=== PATIENT | female | born 1955 | race Caucasian/White ===

== ENCOUNTER → 2017-12-21 09:54 | Outpatient (CLI) | payer BC, MEDICARE, SELFPAY ==
--- NOTE | 2017-12-21 14:38 | PFTCOMP ---
COMPLETE PULMONARY FUNCTION TEST INTERPRETATION Brief HPI: Patient is a 62 year old female, currently under the care of myself, who presents to [facility] for complete pulmonary function tests secondary to diagnosis of pulmonary hypertension. Respiratory therapist reports good effort and reproducible results. Interpretation: Forced expiration spirometry shows no large airways obstructive ventilatory defect with an FEV1 of 76 % predicted. There is no significant bronchodilator response by ATS criteria. Spirograms are of good quality and plateau normally. The respiratory flow volume loop shows a normal pattern. Lung volumes by body plethysmography show a decreased total lung capacity at 3.79 L, 78 % predicted. All other lung volumes are reduced symmetrically. Diffusion capacity by carbon monoxide is decreased at 53 % predicted. The airway resistance is normal. Compared to previous pulmonary function tests from 03/16/2017, there has been a significant change in FVC and DLCO. Impression: Mild restrictive ventilatory defect with a symmetric reduction diffusing capacity consistent with possible interstitial lung disease. There has been significant improvement compared to previous study.
== END ==
PROVIDERS: Family Provider Internal Medicine; PCP Internal Medicine; Visit Provider Internal Medicine Critical Care Medicine
DX: R94.2 Abnormal results of pulmonary function studies (principal)
CPT/HCPCS: 94060; 94726; 94729

== ENCOUNTER → 2018-02-17 08:20 | Outpatient (CLI) | payer BC, MEDICARE, SELFPAY ==
[2018-02-17 08:30] VITALS: PULSE 101; PULSE 105; PULSE 62; PULSE 66; PULSE 68; PULSE 99; O2SAT 90; O2SAT 91; O2SAT 92; O2SAT 95; O2SAT 96
--- NOTE | 2018-02-17 10:40 | PCM.PSN.6M ---
PSN 6 Minute Walk Test - 6 Minute Walk Test 6 Minute Walk Test: 6 Minute Walk Test PSN:6-Minute Walk Test Start: 02/17/18 08:49 Freq: Status: Active Protocol: RESP.6MINW Document 02/17/18 08:30 EW (Rec: 02/17/18 08:52 EW [id number]) 6 Minute Walk Test Date Performed 02/17/18 Time Performed 08:30 Height 5 ft 4 in Weight: 86.636 kg Weight in Pounds 191.[address]: Yuni Banks Assistive device used: None Pre-test Oxygen Delivery Method Room Air Pulse Ox (%) 95 Pulse Rate (60-100 beats/min) 62 Dyspnea Leigha Scale (0-10) 0 Exertion Leigha Scale (6-20) 6 1st minute Oxygen Delivery Method Room Air Pulse Ox (%) 91 Pulse Rate (60-100 beats/min) 68 2nd minute Oxygen Delivery Method Room Air Pulse Ox (%) 90 Pulse Rate (60-100 beats/min) 99 3rd minute Oxygen Delivery Method Room Air Pulse Ox (%) 91 Pulse Rate (60-100 beats/min) 105 H 4th minute Oxygen Delivery Method Room Air Pulse Ox (%) 91 Pulse Rate (60-100 beats/min) 99 5th minute Oxygen Delivery Method Room Air Pulse Ox (%) 92 Pulse Rate (60-100 beats/min) 105 H 6th minute Oxygen Delivery Method Room Air Pulse Ox (%) 91 Pulse Rate (60-100 beats/min) 101 H Post-test Oxygen Delivery Method Room Air Pulse Ox (%) 96 Pulse Rate (60-100 beats/min) 66 Dyspnea Leigha Scale (0-10) 3 Exertion Leigha Scale (6-20) 13 Full Laps Walked 12 Partial Lap, Number of Tiles Walked 0 Total Distance Walked (ft) 708 - Interpretation Interpretation: The patient was able to ambulate only 780 feet over the course of 6 minutes on room air with no assistive devices or breaks. The patient did experience significant desaturation from 95% at baseline to as low as 90%. Some reflexive tachycardia was noted. These findings are consistent with a respiratory limitation exercise tolerance. - Recommendations Recommendations: No supplemental oxygen is indicated at this time. However, patient will need to be followed closely given level of desaturation.
--- NOTE | 2018-02-17 10:43 | WT_ITS ---
PSN 6 Minute Walk Test - 6 Minute Walk Test 6 Minute Walk Test: 6 Minute Walk Test PSN:6-Minute Walk Test Start: 02/17/18 08: 49 Freq: Status: Active Protocol: RESP.6MINW Document 02/17/18 08:30 EW (Rec: 02/17/18 08:52 EW [id number]) 6 Minute Walk Test Date Performed 02/17/18 Time Performed 08:30 Height 5 ft 4 in Weight: 86.636 kg Weight in Pounds 191.[address]: Yuni Banks Assistive device used: None Pre-test Oxygen Delivery Method Room Air Pulse Ox (%) 95 Pulse Rate (60-100 beats/min) 62 Dyspnea Leigha Scale (0-10) 0 Exertion Leigha Scale (6-20) 6 1st minute Oxygen Delivery Method Room Air Pulse Ox (%) 91 Pulse Rate (60-100 beats/min) 68 2nd minute Oxygen Delivery Method Room Air Pulse Ox (%) 90 Pulse Rate (60-100 beats/min) 99 3rd minute Oxygen Delivery Method Room Air Pulse Ox (%) 91 Pulse Rate (60-100 beats/min) 105 H 4th minute Oxygen Delivery Method Room Air Pulse Ox (%) 91 Pulse Rate (60-100 beats/min) 99 5th minute Oxygen Delivery Method Room Air Pulse Ox (%) 92 Pulse Rate (60-100 beats/min) 105 H 6th minute Oxygen Delivery Method Room Air Pulse Ox (%) 91 Pulse Rate (60-100 beats/min) 101 H Post-test Oxygen Delivery Method Room Air Pulse Ox (%) 96 Pulse Rate (60-100 beats/min) 66 Dyspnea Leigha Scale (0-10) 3 Exertion Leigha Scale (6-20) 13 Full Laps Walked 12 Partial Lap, Number of Tiles Walked 0 Total Distance Walked (ft) 708 - Interpretation Interpretation: The patient was able to ambulate only 780 feet over the course of 6 minutes on room air with no assistive devices or breaks. The patient did experience significant desaturation from 95% at baseline to as low as 90%. Some reflexive tachycardia was noted. These findings are consistent with a respiratory limitation exercise tolerance. - Recommendations Recommendations: No supplemental oxygen is indicated at this time. However, patient will need to be followed closely given level of desaturation.
== END ==
PROVIDERS: Family Provider Internal Medicine; PCP Internal Medicine; Visit Provider Nurse Practitioner Acute Care
DX: I27.21 Secondary pulmonary arterial hypertension (principal)
CPT/HCPCS: 94618

== ENCOUNTER → 2018-04-21 08:19 | Outpatient (CLI) | payer BC, MEDICARE, SELFPAY ==
[2018-04-21 10:29] LABS: AST(SGOT) 13 U/L (15-37); Alanine Aminotransfer ALT/SGPT 14 U/L (13-56); Albumin, Serum 3.6 g/dL (3.2-5.0); Alkaline Phosphatase 89 U/L (45-117); Bilirubin, Direct 0.12 mg/dL (0.00-0.30); Cholesterol 188 mg/dL (200); Globulin 3.4 g/dL (2.2-4.2); High Density Lipoprotein 68 mg/dL; Triglycerides 46 mg/dL; Very Low Density Lipoprotein 9 mg/dL (5-40)
== END ==
PROVIDERS: Family Provider Internal Medicine; PCP Internal Medicine; Visit Provider Physician Assistant Medical
DX: E78.5 Hyperlipidemia, unspecified (principal); Z79.899 Other long term (current) drug therapy
CPT/HCPCS: 36415; 80061; 80076

== ENCOUNTER → 2018-04-27 10:58 | Outpatient (REF) | payer BC, MEDICARE, SELFPAY | LOC: CVS 10:58 | PROVIDERS: Family Provider Internal Medicine; PCP Internal Medicine; Visit Provider Internal Medicine Cardiovascular Disease | DX: R00.2 Palpitations (principal); I48.1 Persistent atrial fibrillation | CPT/HCPCS: 93270 ==

== ENCOUNTER → 2018-08-16 12:58 | Outpatient (CLI) | payer BC, MEDICARE, SELFPAY ==
[2018-07-12 09:11] VITALS: BMI 34.8
--- NOTE | 2018-08-16 13:05 | RAD_ITS ---
STUDY: X-RAY - LUMBAR SPINE REASON FOR EXAM: Female, 63 years old. Low back pain TECHNIQUE: 5 view(s) of the lumbar spine were obtained. COMPARISON: None FINDINGS: There is an exaggerated lumbar lordosis. There is no substantial scoliosis. There is a normal alignment of the vertebrae. There is multilevel endplate spondylosis of the lumbar vertebrae. There is multi-level degenerative disc disease with multi-level disc space narrowing. The soft tissue structures are unremarkable. RAD/L/S Spine Min 4 Views IMPRESSION: Degenerative changes of the spine, as detailed above. Electronically Signed: Inderjit Choudhary DO at 11:41 EST Tel , Service support ,
--- NOTE | 2018-08-16 13:07 | RAD_ITS ---
STUDY: X-RAY - BILATERAL HIPS WITHOUT PELVIS REASON FOR EXAM: Female, 63 years old. Bilateral hip pain TECHNIQUE: 2 views of the right hip, and 2 views of the left hip were obtained. COMPARISON: None. FINDINGS: Right Hip: There are osteoarthritic changes of the right femoral head with marginal osteophyte formation. Normal right acetabulum. There is mild articular joint space narrowing of the right hip. There is no demonstrated right hip fracture. Left Hip: There are osteoarthritic changes of the left femoral head with marginal osteophyte formation. Normal left acetabulum. There is mild articular joint space narrowing of the left hip. There is no demonstrated left hip fracture. Normal bilateral superior and inferior pubic rami , ischial tuberosities and pubic symphysis. Small bone island within the inferior pubic ramus RAD/Hips B/L min 2 views w/ Pelvis IMPRESSION: Mild degenerative change of the hips Electronically Signed: Inderjit Choudhary DO at 13:17 EST Tel , Service support ,
--- NOTE | 2018-08-16 13:08 | RAD_ITS ---
STUDY: X-RAY - RIGHT HAND REASON FOR EXAM: Female, 63 years old. Hand pain TECHNIQUE: 3 view(s) of the hand. COMPARISON: None. FINDINGS: Normal radiocarpal articulation. Normal distal radioulnar joint. Normal visualized carpal bones. Normal carpal articulations Normal carpometacarpal articulation of the thumb. Normal second through fifth carpometacarpal joints. Normal metacarpi. Normal metacarpophalangeal joint of the thumb. 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 Normal proximal and distal phalanges of the thumb. Normal metacarpophalangeal joints of the second through fifth fingers. There is diffuse articular joint space narrowing of the proximal and distal interphalangeal joints of the second through fifth fingers, but without erosive changes or periarticular soft tissue swelling. Normal phalanges of the second through fifth fingers. The soft tissue structures are unremarkable. RAD/Hand Min 3 Views IMPRESSION: Mild degenerative change Electronically Signed: Inderjit Choudhary DO at 13:19 EST Tel , Service support ,
--- NOTE | 2018-08-16 13:09 | RAD_ITS ---
STUDY: X-RAY - RIGHT SHOULDER REASON FOR EXAM: Female, 63 years old. Shoulder pain TECHNIQUE: 4 view(s) of the shoulder. COMPARISON: None. FINDINGS: There is moderate degenerative arthrosis of the glenohumeral articulation. There is degenerative arthrosis of the acromioclavicular joint without inferior osseous spur formation. Normal acromion. Normal humeral head and visualized proximal humerus. The soft tissue structures are unremarkable. There is no demonstrated fracture. Normal visualized pulmonary apex. RAD/Shoulder min 2 Views IMPRESSION: Degenerative changes Electronically Signed: Inderjit Choudhary DO at 13:19 EST Tel , Service support ,
--- NOTE | 2018-08-16 13:09 | RAD_ITS ---
STUDY: X-RAY - LEFT HAND REASON FOR EXAM: Female, 63 years old. Pain with arthralgia TECHNIQUE: 3 view(s) of the hand. COMPARISON: None. FINDINGS: Normal radiocarpal articulation. Normal distal radioulnar joint. Normal visualized carpal bones. Normal carpal articulations There is degenerative arthrosis of the carpometacarpal (CMC) articulation of the thumb. Normal second through fifth carpometacarpal joints. Normal metacarpi. Normal metacarpophalangeal joint of the thumb. Normal interphalangeal joint of the thumb. Normal proximal and distal phalanges of the thumb. Normal metacarpophalangeal joints of the second through fifth fingers. There is diffuse articular joint space narrowing of the proximal and distal interphalangeal joints of the second through fifth fingers, but without erosive changes or periarticular soft tissue swelling. Normal phalanges of the second through fifth fingers. The soft tissue structures are unremarkable. RAD/Hand Min 3 Views IMPRESSION: Mild degenerative changes Electronically Signed: Inderjit Choudhary DO at 13:18 EST Tel , Service support ,
--- NOTE | 2018-08-16 13:10 | RAD_ITS ---
STUDY: X-RAY - LEFT SHOULDER REASON FOR EXAM: Female, 63 years old. Left shoulder pain TECHNIQUE: 4 view(s) of the shoulder. COMPARISON: None. FINDINGS: There is mild degenerative arthrosis of the glenohumeral articulation. There is degenerative arthrosis of the acromioclavicular joint without inferior osseous spur formation. Normal acromion. Normal humeral head and visualized proximal humerus. The soft tissue structures are unremarkable. Normal visualized pulmonary apex. RAD/Shoulder min 2 Views IMPRESSION: Mild degenerative change of the shoulder Electronically Signed: Inderjit Choudhary DO at 13:19 EST Tel , Service support ,
[2018-08-16 13:42] LABS: Bacteria 0 SEEN /hpf (None Seen); Mucous, Urine 0 SEEN /hpf (<or=2+); Red Blood Cells-Urine 0 SEEN /hpf (0-5); Squamous Epithelial Cells - UA 0 SEEN /hpf (5-10); White Blood Cells 0 SEEN /hpf (0-5)
[2018-08-16 14:12] LABS: Absolute Lymphocyte Count 2.08 X10^3/ul (0.83-4.51); Absolute Neutrophil Count 5.2 X10^3/uL (2.0-7.7); Basophil# 0.02 X10^3/uL; Basophil% 0.3 % (0-1); Eosinophil# 0.06 X10^3/uL; Eosinophils% 0.8 % (0-5); Hematocrit 39.3 % (37-47); Hemoglobin 12.9 g/dl (12.0-15.0); Lymphocyte # 2.08 X10^3/ul (4.0); Lymphocyte % 26.4 % (19-41); Mean Corp Hgb Conc 32.8 g/gl (32-36); Mean Corpuscular Hgb 30.3 pg (27.0-32.0); Mean Corpuscular Volume 92.3 fL (81-99); Mean Platelet Vol. 9.6 fl (6.2-12.0); Monocyte# 0.47 X10^3/uL; Neutrophil # 5.24 X10^3/uL (2.7-7.7); Neutrophil % 66.2 % (47-70); POSITIVE COUNT NO; POSITIVE DIFFERENTIAL NO; POSITIVE MORPHOLOGY NO; Platelet Count 209 K/mm3 (150-450); RBC Distribution Width CV 12.7 % (11.6-14.6); RBC Distribution Width SD 41.5 fl (35.1-43.9); Red Blood Count 4.26 M/mm3 (4.2-5.4); White Blood Count 7.9 K/mm3 (4.4-11.0)
[2018-08-16 14:40] LABS: Vitamin D,25 Hydroxy 24.2 ng/mL (29.95-100.01)
[2018-08-16 14:44] LABS: Anion Gap 8 (5-15); BUN 25 mg/dL (7-18); BUN/Creat Ratio 31.4 RATIO (10-20); Calcium,Total 9.2 mg/dL (8.5-10.1); Chloride 103 mmol/L (98-107); EST Glomerular Filtration Rate 77 mL/min (>60); Est Glom Filt Rate - Afr Amer 94 mL/min (>60); Glucose 83 mg/dL (74-106); Potassium 3.9 mmol/L (3.5-5.1); Sodium Level 142 mmol/L (136-145)
[2018-08-16 15:58] LABS: Color, Urine Yellow (Yellow); Glucose, Dipstick Normal (Normal); Ketone-Dipstick Negative (Negative); Leukocyte Esterase-Dipstick Negative /ul (Negative); Nitrite-Dipstick Negative (Negative); Occult Blood-Urine 10 /ul (Negative); Protein-Dipstick Negative (Negative); Urine Bilirubin Dipstick Negative (Negative); Urine Clarity Clear (Clear); Urine Urobilinogen Normal (Normal); Urine pH 6.5 (5.0 - 8.0)
[2018-08-16 16:25] LABS: Microalbumin,Random Urine 5.1 mg/L (NO RANGE EST.); Microalbumin:Creatinine Ratio 7.6 mg/g CRE (<30 mg/g CRE)
[2018-08-18 10:32] LABS: CHOLESTEROL TOTAL 207 mg/dL (100-199); HDL-C 69 mg/dL (>39); HDL-P TOTAL 45.7 umol/L (>=30.5); SMALL LDL-P 298 nmol/L (<=527); TRIGLYCERIDES 77 mg/dL (0-149)
[2018-08-18 15:15] LABS: LDL-C 123 mg/dL (0-99); LDL-P 1229 nmol/L (<1000); LP-IR SCORE ** 34 (<=45)
--- OUTSIDE RECORDS SUMMARY | 2018-09-28 06:29 | XMS RPT_ITS | Continuity of Care Document ---
:1955 Author Organization [facility] Address [facility] [address] Phone Care Team Providers Name Role Phone Lydia Copeland DO Unavailable Duane Rai Unavailable Physical Therapy, [facility] Unavailable Dr. Julio Gordon Unavailable LINDSAY Lyon Unavailable Unavailable Dena Hurd LPN Unavailable Unavailable Unavailable Unavailable Problems Name Dates Details Aortic stenosis (I35.0, 424.1) Status: Active Arthralgia of both hands (M25.541, 719.44) Comments: pt gets relief with tylenol oa med otc Status: Active Asthma, intrinsic, with status asthmaticus (J45.902, 493.11) Comments: takes no inhalers and tells me she is fine -- got better with bipapShes dr Webster Status: Active Asymmetric tonsils (474.8) Comments: left side alot biigger Status: Active Atrial fibrillation (I48.91, 427.31) Comments: just had event monitor on adn in afib after ablation several yrs ago --now on eliquis Status: Active Backache Comments: bulging disc Status: Active Bicuspid Cardiac Valve Comments: sees Javad Status: Active Bilateral shoulder pain, unspecified chronicity (M25.511, 719.41) Status: Active Bipolar Disorder Comments: [facility] Status: Active BMI 34.0-34.9,adult (Z68.34, V85.34) Status: Active Bronchitis (J40, 490) Comments: improved Prednisone day 04/29 Augmentin daty 04/29Tessalon perles BID heleping with coughSTAT CXR: 09/17/16:mild bibasilar scarringDenies cough, fever, chills, SOB, wheeze, runny nose, Status: Active Bronchitis due to tobacco use (J41.0, 491.0) Status: Active 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, 496) Comments: talk pul rehab and do PFT Status: Active Cough (R05, 786.2) Status: Active Current non-smoker (Z78.9, V49.89) Status: Active 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) Comments: s/p surgery 2010 Status: Active Encounter for screening mammogram for breast cancer (Renamed from Encounter for screening mammogram for malignant neoplasm of breast) (Z12.31, V76.12) Status: Active Family history of malignant neoplasm of gastrointestinal tract (Z80.0, V16.0) Status: Active Former smoker (Z87.891, V15.82) Status: Active Hip pain, bilateral (M25.551, 719.45) Status: Active Hyperlipidemia (E78.5, 272.4) Status: Active Hypertension (I10, 401.9) Comments: medicated with that --sees Richey now -- just had event monitor ion for 30 days Status: Active hypoxia Status: Active Hypoxia (R09.02, 799.02) Comments: suspect copd Spriometry 11-11-16 Mod severe restriction Status: Active Low back pain potentially associated with radiculopathy (M54.5, 724.2) Comments: lumbar -ddd but also on mri in past has h/o bulging disc Status: Active Need for prophylactic vaccination and inoculation against influenza (Z23, V04.81) Status: Active Obstructive sleep apnea, adult (G47.33, 327.23) Comments: wearing BIPAP Status: Active Other intervertebral disc degeneration, lumbar region (M51.36, 722.52) Comments: s/p L5-s1- microdiscectomy Status: Active Other specified viral infection, in conditions classified elsewhere and of unspecified site (B97.89, 079.89) Status: Active Pharyngitis, acute (J02.9, 462) Comments: left tonsil asymetrically swollen. need to recheck in case lympphoma. told pt importance of me rechecking Status: Active S/P ablation of atrial fibrillation (Z98.890, V45.89) Comments: Sent by Dr. Mckee, pt went to [facility] in [place] [address]. Jose Carlos Gates did abaltion at [facility] Status: Active screening Status: Active Sinusitis, acute (J01.90, 461.9) Status: Active Sleep apnea (G47.30, 780.57) Comments: will contact Sibilia Status: Active Vitamin D deficiency, unspecified (E55.9, 268.9) Status: Active Wheezing (R06.2, 786.07) Status: Active Medications Name Dates Details CALAN, 120MG (Oral Tablet) 1 Tablet qd for 30 days Quantity: 30 {Tablet} Refills: 3 Ordered:18-Jan-2012 Suki Mandujano Start : 03-Nov-2011 Active Eliquis 5 MG Oral Tablet 2 qd (5 MG) Active Gemfibrozil 600 MG Oral Tablet 2 qd (600 MG) Active HydroCHLOROthiazide 25 MG Oral Tablet 1 qd (25 MG) Active LaMICtal XR 200 MG Oral Tablet Extended Release 24 Hour 1 Tablet ER 24HR qd for 90 days Quantity: 90 {Tablet} Refills: 3 Ordered:16-Aug-2018 Yvette Copeland DO, DO, Kathleen Start : 16-Aug-2018 Active LOPRESSOR, 100MG (Oral Tablet) 2 (two) Tablet qd for 90 days Quantity: 180 {Tablet} Refills: 3 Ordered:18-Jan-2012 Suki Mandujano Start : 03-Nov-2011 Active MULTIVITAMINS (Oral Tablet) 1 Tablet qd for 30 days Quantity: 30 {Tablet} Refills: 3 Ordered:18-Jan-2012 Suki Mandujano Start : 03-Nov-2011 Active Potassium Chloride ER 10 MEQ Oral Tablet Extended Release 1 qd (10 MEQ) Active Ramipril 10 MG Oral Capsule 1 qd (10 MG) Active TRAZODONE HCL, 100MG (Oral Tablet) 1-2 Tablet at HS for 30 days Quantity: 60 {Tablet} Refills: 0 Ordered:18-Jan-2012 Suki Mandujano Start : 03-Nov-2011 Active VITAMIN D3, 2000UNIT (Oral Tablet) 2 (two) Tablet qd for 0 days Quantity: 60 {Tablet} Refills: 0 Ordered:17-May-2012 Laura Joe LPN Start : 18-Jan-2012 Active ZOLOFT, 100MG (Oral Tablet) 2 (two) Tablet qd for 30 days Quantity: 60 {Tablet} Refills: 3 Ordered:18-Jan-2012 Suki Mandujano Start : 03-Nov-2011 Active Augmentin 875-125 MG Oral Tablet 1 Tablet Tablet bid for 10 days Quantity: 20 {Tablet} Refills: 0 Ordered:11-Nov-2016 Octavia Isabel CNP Start : 11-Nov-2016 End : 21-Nov-2016 Inactive Cefdinir 300 MG Oral Capsule 1 (one) Capsule bid for 0 days Quantity: 20 {Capsule} Refills: 0 Ordered:29-Jul-2016 Rachna Lyon LPN Start : 09-Aug-2015 End : 29-Jul-2016 Inactive Cheratussin AC 100-10 MG/5ML Oral Syrup 1-2 Teaspoon(s) Teaspoon(s) q6-8 hrs prn cough for 0 days Quantity: 8 {Ounce} Refills: 0 Ordered:29-Jul-2016 Rachna Lyon LPN Start : 15-Jan-2015 End : 29-Jul-2016 Inactive CO-Q 10 [place]-3 Fish Oil Oral Capsule 1 Capsule qd for 90 days Quantity: 90 {Capsule} Refills: 3 Ordered:16-Aug-2018 Rachna Lyon LPN Start : 03-Nov-2011 End : 16-Aug-2018 Inactive DOXYCYCLINE HYCLATE, 100MG (Oral Capsule) 1 (one) Capsule bid for 10 days Quantity: 20 {Capsule} Refills: 0 Ordered:15-Jan-2015 Octavia Isabel CNP Start : 15-Jan-2015 End : 25-Jan-2015 Inactive Effexor 50 mg daily Inactive Effexor XR 37.5 MG Oral Capsule Extended Release 24 Hour 1 Capsule ER 24HR qd for 30 days Quantity: 30 {Capsule_ER_24HR} Refills: 3 Ordered:29-Jul-2016 Rachna Lyon LPN Start : 03-Nov-2011 End : 29-Jul-2016 Inactive Neurontin 300 MG Oral Capsule 1 (one) Capsule qhs for 5days then bid for 5days then if needed for pain control increase to tid for 0 days Quantity: 90 {Capsule} Refills: 0 Ordered:17-Sep-2016 Shekhar Sharpe MD Start : 29-Jul-2016 End : 17-Sep-2016 Inactive PredniSONE 20 MG Oral Tablet 1 (one) Tablet Tablet UAD for 10 days Quantity: 20 {Tablet} Refills: 0 Ordered:11-Nov-2016 Chalo BLANKEN[place]IP Octavia Pierson Start : 11-Nov-2016 End : 21-Nov-2016 Inactive Comments:20 mg BID 2 days,10 mg BID 4 days10 mg Qd 4 days then stop.20 pills PREDNISONE, 10MG (Oral Tablet) 1 Tablet 2 bid x 2 days, 1 bid x 2 days, 1/2 bid x 2 days for 0 days Refills: 0 Ordered:31-Jan-2013 JOSE Romo Start : 30-Aug-2012 End : 31-Jan-2013 Inactive Proventil HFA 108 (90 Base) MCG/ACT Inhalation Aerosol Solution 2 (two) Puff(s) tid for 7 days Quantity: 1 {Inhaler} Refills: 0 Ordered:25-Nov-2016 Chalo [employer] Octavia Pierson Start : 25-Nov-2016 End : 02-Dec-2016 Inactive QVAR, 80MCG/ACT (Inhalation Aerosol Solution) 1 Aerosol Soln puff bid for 0 days Quantity: 1 {Aerosol_Soln} Refills: 2 Ordered:31-Jan-2013 JOSE Romo Start : 17-May-2012 End : 31-Jan-2013 Inactive Comments:rinse mouth after use Spiriva Respimat 1.25 MCG/ACT Inhalation Aerosol Solution 2 (two) Puff qd for 0 days Quantity: 2 {QS} Refills: 3 Ordered:16-Aug-2018 Rachna Loyn LPN Start : 25-Nov-2016 End : 16-Aug-2018 Inactive Tessalon Perles 100 MG Oral Capsule 1 (one) Capsule Capsule tid prn cough for 10 days Quantity: 30 {Capsule} Refills: 0 Ordered:11-Nov-2016 Chalo [place] Octavia Pierson Start : 11-Nov-2016 End : 21-Nov-2016 Inactive ZETIA, 10MG (Oral Tablet) 1 Tablet qd for 90 days Quantity: 90 {Tablet} Refills: 3 Ordered:31-Jan-2013 JOSE Romo Start : 03-Nov-2011 End : 31-Jan-2013 Inactive Crestor 40 MG Oral Tablet 1 Tablet qd for 90 days Quantity: 90 {Tablet} Refills: 3 Ordered:11-Nov-2016 Dena Hurd LPN Start : 03-Nov-2011 End : 11-Nov-2016 Discontinued Allergies and Adverse Reactions Name Dates Details No Known Drug Allergies (Allergy) Onset: 03-Nov-2011 Status: Active Past Medical History Name Dates Details BMI 37.0-37.9, adult (Z68.37, V85.37) Status: Inactive as of 16-Aug-2018 BMI 38.0-38.9,adult (Z68.38, V85.38) Status: Inactive as of 16-Aug-2018 BMI 39.0-39.9,adult (Z68.39, V85.39) Status: Inactive as of 16-Aug-2018 Bronchitis (J40, 490) Status: Inactive as of 16-Aug-2018 Cellulitis (L03.90, 682.9) Status: Inactive as of 29-Jul-2016 Chest congestion (R09.89, 786.9) Comments: BronchitisPrednisoneProairAugmentin6 days: cough, initially none, then ,fever off and on, cold, chills,tylenolYellow phlegm with pinkRunny nose yellow, nasal congestion, having wheeze and SOB when walki ng geting betterDenies sinus pain, NVD, sore throat, Has Asthma Status: Inactive as of 16-Aug-2018 Cough (R05, 786.2) Comments: suspect COPD flare Status: Inactive as of 16-Aug-2018 Fatigue (R53.83, 780.79) Comments: snoring and apnea- set up sleep study Status: Inactive as of 16-Aug-2018 Hypoxia (R09.02, 799.02) Comments: O2 sat 90% after nebulizerSTAT CXRRepeat 97% Status: Inactive as of 16-Aug-2018 Neoplasm of uncertain behavior of skin (D48.5, 238.2) Status: Inactive as of 31-Jan-2013 Sinusitis (J32.9, 473.9) Comments: resolving continue rosalinda pot Status: Inactive as of 16-Aug-2018 SOB (shortness of breath) on exertion (R06.02, 786.05) Status: Inactive as of 31-Jan-2013 Procedures Procedure Dates Details Appendectomy Completed Comments: age 6 Back [age]ugust 21: Bulging disc Completed Comments: Dr Reilly Heart Ablasion Completed Comments: 2004 and 2006 tubal ligation Completed Comments: 1979 Date Value Details 16-Aug-2018 Shoulder min 2 Views Result: Comments: See Note; NOTES: [facility] Imaging Services [address] [place] [address] Shoulder min 2 Views MR#: [id number] Acct: [id number] Name: ADRIANA DILL Rep #: [id number] : 1955 F 63 From: Inderjit Choudhary DO PCP: Lydia Copeland DO Status: REG CLI Study: Shoulder min 2 Views Date of Exam: 08/16/18 Exam# [id number] Ordering Dr: Lydia Copeland DO STUDY: X-RAY - L EFT SHOULDER REASON FOR EXAM: Female, 63 years old. Left shoulder pain TECHNIQUE: 4 view(s) of the shoulder. COMPARISON: None. FINDINGS: There is mild degenerativ e arthrosis of the glenohumeral articulation. There is degenerative arthrosis of the acromioclavicular joint without inferior osseous spur formation. Normal acromion. Normal humeral head and visualized proximal humerus. The soft tissue structures are unremarkable. Normal visualized pulmonary apex. RAD/Shoulder min 2 Views IMPRESSION: Mild deg enerative change of the shoulder Electronically Signed: Inderjit Choudhary DO at 13:19 EST Tel , Service support , CC: Lydia Copeland DO Tile Erector: Signed 16-Aug-2018 Hand Min 3 Views Result: Comments: See Note; NOTES: [facility] Imaging Services [address] [place] [address] Hand Min 3 Views MR#: [id number] Acct: [id number] Name: ADRIANA DILL Rep #: [id number] DO B: 1955 F 63 From: Inderjit Choudhary DO PCP: Lydia Copeland DO Status: REG CLI Study: Hand Min 3 Views Date of Exam: 08/16/18 Exam# [id number] Ordering Dr: Lydia Copeland DO STUDY: X-RAY - LEFT HAND REASON FOR EXAM: Female, 63 years old. Pain with arthralgia TECHNIQUE: 3 view(s) of the hand. COMPARISON: None. FINDINGS: Normal radiocarpal articulation. Normal distal radioulnar joint. Normal visualized carpal bones. Normal carpal articulations There is degenerative arthrosis of the carpometacarpal (CMC) articulation of the thumb. Normal second through fift h carpometacarpal joints. Normal metacarpi. Normal metacarpophalangeal joint of the thumb. Normal interphalangeal joint of the thumb. Normal proximal and distal phalanges of the thumb. Normal metacar pophalangeal joints of the second through fifth fingers. There is diffuse articular joint space narrowing of the proximal and distal interphalangeal joints of the second through fifth fingers, but witho ut erosive changes or periarticular soft tissue swelling. Normal phalanges of the second through fifth fingers. The soft tissue structures are unremarkable. RAD/Hand Min 3 Views IMPRESSION: Mild degenerative changes Electronically Signed: Inderjit Choudhary DO at 13:18 EST Tel , Service support , Fax CC: Lydia Copeland DO Tile Erector: Signed 16-Aug-2018 Shoulder min 2 Views Result: Comments: See Note; NOTES: [facility] Imaging Services [address] [place] [id number] Shoulder min 2 Views MR#: [id number] Acct: [id number] Name: ADRIANA DILL Rep #: [id number] : 1955 F 63 From: Inderjit Choudhary DO PCP: Lydia Copeland DO Status: REG CLI Study: Shoulder min 2 Views Date of Exam: 08/16/18 Exam# [id number] Ordering Dr: Lydia Copeland DO STUDY: X-RAY - R IGHT SHOULDER REASON FOR EXAM: Female, 63 years old. Shoulder pain TECHNIQUE: 4 view(s) of the shoulder. COMPARISON: None. FINDINGS: There is moderate degenerativ e arthrosis of the glenohumeral articulation. There is degenerative arthrosis of the acromioclavicular joint without inferior osseous spur formation. Normal acromion. Normal humeral head and visualized proximal humerus. The soft tissue structures are unremarkable. There is no demonstrated fracture. Normal visualized pulmonary apex. RAD/Should er min 2 Views IMPRESSION: Degenerative changes Electronically Signed: Inderjit Choudhary DO at 13:19 EST Tel , Service support , CC: Lydia Copeland DO Tile Erector: Signed 16-Aug-2018 Hand Min 3 Views Result: Comments: See Note; NOTES: [facility] Imaging Services [address] [place] [id number] Hand Min 3 Views MR#: [id number] Acct: [id number] Name: ADRIANA DILL Rep #: [id number] DO B: 1955 F 63 From: Inderjit Choudhary DO PCP: Lydia Copeland DO Status: REG CLI Study: Hand Min 3 Views Date of Exam: 08/16/18 Exam# [id number] Ordering Dr: Lydia Copeland DO STUDY: X-RAY - RIGHT ANDERSON D REASON FOR EXAM: Female, 63 years old. Hand pain TECHNIQUE: 3 view(s) of the hand. COMPARISON: None. FINDINGS: Normal radiocarpal articulation. Normal distal ra dioulnar joint. Normal visualized carpal bones. Normal carpal articulations Normal carpometacarpal articulation of the thumb. Normal second through fifth carpometacarpal joints. Normal metacarpi. No rmal metacarpophalangeal joint of the thumb. 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 Normal proximal and distal phalanges of the t humb. Normal metacarpophalangeal joints of the second through fifth fingers. There is diffuse articular joint space narrowing of the proximal and distal interphalangeal joints of the second through fif th fingers, but without erosive changes or periarticular soft tissue swelling. Normal phalanges of the second through fifth fingers. The soft tissue structures are unremarkable. RAD/Hand Min 3 Views IMPRESSION: Mild degenerative change Electronically Signed: Inderjit Choudhary DO at 13:19 EST Tel , Service support [phone], CC: Lydia Copeland DO Tile Erector: Signed 16-Aug-2018 Hips B/L min 2 views w/ Pelvis Result: Comments: See Note; NOTES: [facility] Imaging Services [address] [place] [address] Hips B/L min 2 views w/ Pelvis MR#: [id number] Acct: [id number] Name: FUENTESADRIANA E Rep # : [id number] : 1955 F 63 From: Inderjit Choudhary DO PCP: Lydia Copeland DO Status: REG CLI Study: Hips B/L min 2 views w/ Pelvis Date of Exam: 08/16/18 Exam# [id number] Ordering Dr: Lydia Copeland STUDY: X-RAY - BILATERAL HIPS WITHOUT PELVIS REASON FOR EXAM: Female, 63 years old. Bilateral hip pain TECHNIQUE: 2 views of the right hip, and 2 views of the left hip were obtained. COMPARISON: None. FINDINGS: Right Hip: There are osteoarthritic changes of the right femoral head with marginal osteophyte formation. Normal right acetabulum. There is mild ar ticular joint space narrowing of the right hip. There is no demonstrated right hip fracture. Left Hip: There are osteoarthritic changes of the left femoral head with marginal osteophyte formation. Nor mal left acetabulum. There is mild articular joint space narrowing of the left hip. There is no demonstrated left hip fracture. Normal bilateral superior and inferior pubic rami , ischial tuberosities and pubic symphysis. Small bone island within the inferior pubic ramus RAD/Hips B/L min 2 views w/ Pelvis IMPRESSION: Mild degenerative change o f the hips Electronically Signed: Inderjit Choudhary DO at 13:17 EST Tel , Service support , CC: Lydia Copeland DO Tile Erector: Signed 16-Aug-2018 L/S Spine Min 4 Views Result: Comments: See Note; NOTES: [facility] Imaging Services [address] [place] [id number] L/S Spine Min 4 Views MR#: [id number] Acct: [id number] Name: ADRIANA DILL Kenna Rep #: [id number] : 1955 F 63 From: Inderjit Choudhary DO PCP: Lydia Copeland DO Status: REG CLI Study: L/S Spine Min 4 Views Date of Exam: 08/16/18 Exam# [id number] Ordering Dr: Lydia Copeland DO STUDY: X-RAY - LUMBAR SPINE REASON FOR EXAM: Female, 63 years old. Low back pain TECHNIQUE: 5 view(s) of the lumbar spine were obtained. COMPARISON: None FINDINGS: There is an exaggerated lumbar lordosis. There is no substantial scoliosis. There is a normal alignment of the vertebrae. There is multilevel endplate spondylosis of the lumbar vertebrae. There is multi-level dege nerative disc disease with multi-level disc space narrowing. The soft tissue structures are unremarkable. RAD/L/S Spine Min 4 Views IMPRESSION: Degenerative changes of the spine, as detailed above. Electronically Signed: Inderjit Choudhary DO at 11:41 EST Tel , Service support , CC: Linsey Copeland DO Tile Erector: Signed 12-Jul-2018 Pulmonary Visit Report Result: Comments: See Note; NOTES: [facility] [address] [place] [address] OFFICE VISIT Date of Service: 07/12/18 MR#: [id number] Acct: [id number] Name: ADRIANA GALVAN Rep #: [id number] : 1955 Provider: Ernesto Webster MD Age/Sex: 63/F [place] [facility] [place] Status: Signed Assessment AND Plan Problems 1. MEGHAN (obstructive sleep apnea) G47.33 2. 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 History of maze procedure Z98.890 Plan Patient overall is doing well from an MEGHAN standpoint. Patient's walking oximetry did show significant desaturation with am bulation, which would be expected with patient secondary pulmonary hypertension. Patient was advised to avoid salt as much as possible. Patient has had a slight increase in weight. Patient's AHI is slig htly elevated, but not enough to require a repeat titration study. Patient is back in A. fib, which would complicate patient's arterial hypertension. Will obtain a walking oximetry prior to next visit. Patient can sent back to her oxygen therapy. Walking oximetry prior to next visit. Continue BiPAP as ordered. Encourage weight loss Orders Orders: Plan Detail Follow Up 6 Months ([facility]) HPI 6 M FU: Chief Complaint: Shortness of breath on exertion Details: This is a 63-year-old female, currently under the care of Dr. Freitas, who presents for evaluation secondary to shortness of breath on exertion and sleep apnea. Past visit, patient denies any ER visits, hospitalizations or prednisone burst. Patient is currently on no inhalers. Patient does state that she was placed back on Eliquis th erapy secondary to a Holter monitor showing significant paroxysmal A. fib. Patient states that she has been compliant with her BiPAP therapy. Patient feels that this is going well overall. Patient valentine es the need for naps during the day. Patient continues to notice restful sleep. Patient does not wake up for nocturia. Patient occasionally will wake up with the mask off, but states this happens infreq uently. Patient denies any pain at the interface site, dry mouth or epistaxis. Overall, patient feels that her dyspnea on exertion is subjectively improved compared to previous. Patient denies any blee ding complications associated with the use of anticoagulation. Patient does report some weight gain that she attributes to dietary indiscretions and decreased activity. Patient states that when her hear t rate is elevated she becomes dyspneic more rapidly. Testing personally reviewed with the patient Walking oximetry (02/17/2018): Ambulated 780 feet over the course of 6 minutes on room air with signif icant desaturation as low as 90%. Compliance report (May 2018): Compliant 83% of days for an average of 6 hours 15 minutes on BiPAP 16/12 centimeters of water with residual AHI of 3 and fairly co ntrolled leak. HPI Comments Details: Intake Vital Signs07/12/18 Height 5 ft 4 in 07/12/18 Weight: 92.079 kg Intake Visit Reasons: 6 M FU Evaluation Manager Required: No Accompanied by: Self Is patient in p ain?: No Allergies No Known Allergies Allergy (Unverified 07/12/18 09:14) Medications Lamotrigine [Lamictal] 200 mg PO DAILY 12/17/14 [History Confirmed 07/12/18] Potassium Chloride [K-Dur] 10 meq PO DAILY 12/17/14 [History Confirmed 07/12/18] Verapamil HCl [Calan Sr] 120 mg PO DAILY 12/17/14 [History Confirmed 07/12/18] ezetimibe 10 mg tablet 10 mg PO QDAY 10/18/17 [History Confirmed 07/12/18] t razodone 100 mg tablet 200 mg PO DAILY tab 10/18/17 [History Confirmed 07/12/18] ramipril 10 mg capsule 10 mg PO QDAY 10/19/17 [History Confirmed 07/12/18] sertraline 100 mg tablet 100 mg PO BID tab [History Confirmed 07/12/18] metoprolol tartrate 100 mg tablet 100 mg PO BID #180 tab 10/26/17 [Rx Confirmed 07/12/18] hydrochlorothiazide 25 mg tablet 25 mg PO QDAY #90 tab 11/10/17 [Rx Confirmed 07/12/18] apixaban 5 mg tablet 5 mg PO BID #60 tab 05/30/18 [Rx Confirmed 07/12/18] gemfibrozil 600 mg tablet 600 mg PO BID #180 tab 06/20/18 [Rx Confirmed 07/12/18] PFSH Medical History Long-term use of high-risk medication (Chronic) Hyperlipidemia (Chronic) Bipolar disorder (Chronic) Non-rheumatic aortic stenosis (Chronic) Obstructive sleep apnea (Chronic) Secondary pulmonary arterial hypertens ion (Chronic) GERD (gastroesophageal reflux disease) (Chronic) Non-ST elevation (NSTEMI) myocardial infarction (Chronic 08/21/11) Palpitation (Acute) Hypertension (Chronic) Persistent atrial fibrillati on (Chronic) Dyslipidemia (Chronic) Bicuspid aortic valve (Chronic) Surgical History history of pulmonary vein isolation (Chronic) History of maze procedure (Resolved) H/O discectomy (Resolved) Histo ry of right and left heart catheterization (Resolved 03/05/17) Family History Brother CAD (coronary artery disease) from [place] age 52 Father Dementia Mother Cancer Social History Smoking Status: Former smoker how long ago did patient quit smokin second hand exposure: No alcohol intake: never substance use type: does not use caffeine: No what type of physical activity do you participate in: none Review of Systems Const CONSTITUTIONAL: Negative anorexia, body ache, chills, daytime sleepiness, fever(s), night sweats, oral thrush, stops breathing during sleep, weight loss, sleeping in ch air, fatigue, weight loss, weight gain, frequent colds, seasonal allergies, other, headache(s) or orthopnea EETM Ear Nose Throat Mouth: Positive nasal discharge, hearing normal and post nasal drip; nega tive hoarseness, dry mouth in morning, change in vision, itchy eyes, eye pain, swallowing Difficulty, ear pain, headache(s), mouth pain, nasal congestion, sinus pain, sinus pressure, sore throat, other, hard of hearing or nose bleed Cardio Cardiovascular: Negative chest pain, chest pain at rest, chest pain with activity, irregular heart rhythm, edema, shortness of breath when lying down, palpitations, other or murmur Resp Respiratory: Positive as per HPI and shortness of breath shortness of breath: Positive with activity; negative pain with cough, wheezing, chest congestion, cough, chest tightness, pain on inspiration, inhalers, increase use of rescue inhalers, snoring, apnea or other Gastro Gastrointestional: Negative bloody stools, change in appetite, difficulty swallowing, reflux, hematemesis, melena stool, loose stool, constipation or other Genitourinary: Negative blood in urine, nocturia, pain with urination or other Musc Musculoskeletal: Negative body pain, back pain, neck pain or other Skin/Breast Skin/Breast: Negative dry skin, itching, unusual bruising, breast lump, other or rash Neuro Neurological: Negative restless legs, confusion, weakness or other Psych Psychocological: Negativ e abnormal sleep pattern, anxiety, thoughts of hurting self/others, hopelessness or other Lymph Lymphatic: Negative easy bleeding, easy bruising, other or swollen lymph nodes Exam Const Constitutional : Positive conversant, cooperative, in no acute respiratory distress, healthy appearing, well developed, well nourished and good hygiene; negative wearing supplemental oxygen or ill appearing Head Head: Positive normocephalic and atraumatic; negative cyanosis of lips/distal nose, frontal sinus tenderness or maxillary sinus tenderness Eyes Eye: Positive clear conjunctiva; negative nystagmus, scleral ab normality or cataract present Ears Ear: Positive hearing normal and external ears normal; negative hard of hearing Nose Nose: Positive external nose normal, septum normal and clear nasal discharge; nega tive epistaxis or nasal polyp Mouth Mouth: Positive post nasal drip, oral mucosae normal, no lesions and crowded posterior oropharynx; negative malodorous breath or oral thrush present Mallampati Score: III: Mallampati Score Neck Neck: Positive normal visual inspection, full ROM, trachea midline and female neck greater than 37 cm (15 in); negative lymphadenopathy or JVD Chest Wall Chest: Positive norm al inspection of the chest and symmetric chest movement; negative crepitus or tenderness Resp lung sounds: Positive clear to auscultation, good air exchange, normal expiratory time and normal respirator y effort; negative wheezes, rhonchi, rales, use of accessory muscles, wheeze present on forced exhalation or dullness to percussion Cardio Cardiac: Positive regular rate, regular rhythm, S1 normal and S 2 normal; negative murmur, rub or gallop GI GI: Positive normal to inspection and normal bowel sounds; negative distended, ascites or epigastric tenderness Genitourinary: Positive deferred Musc Muscu loskeletal: Positive steady gait; negative using an assistive device for ambulation, kyphosis or scoliosis Skin Pulmonary Skin Exam: Positive intact; negative rash, lesion, ulcers, erythema, scaly or de rmal atrophy Pulses Pulse: Yes radial pulses present Extremities Extremities: Yes capillary refill normal, No clubbing, No cyanosis, Yes edema (Trace lower extremity), No stasis dermatitis Neuro Neurolo gic: Yes conversant, Yes no focal neuro deficits, Yes normal concentration, Yes understands questions, Yes cooperative, Yes normal cognition, Yes normal coordination Lymph Lymphatic: No lymphadenopathy Psych Appearance: Positive grossly normal Mental Status: Positive mental status grossly normal Mood: Positive congruent mood Affect: Positive normal affect Coding Level of Care Code Off vis,est,level 3 Diagnoses MEGHAN (obstructive sleep apnea) G47.33 Secondary pulmonary arterial hypertension I27.21 History of maze procedure Z98.890 07/12/18 0949 <Electronically signed by Ernesto Webster MD&am p;#62; Date Ernesto Webster MD Cosigner Signature: Date (if applicable) CC: Lydia Copeland DO -Apr-2018 Cardiology Visit Report Result: Comments: See Note; NOTES: [facility] [address] [place] [address] OFFICE VISIT Date of Service: 04/22/18 MR#: [id number] Acct: [id number] Name: ADRIANA DILL Rep #: [id number] : 1955 Provider: Stanley Richey MD Age/Sex: 63/F [place] [facility] [place] Status: Signed HPI HPI Chief Complaint: Routine f/u Details: Details: Referring physician: Dr. Jeanne Quinones It was a pleasure seeing your patient, Adriana Dill, today in our office. She Is a 63-year-old female and is returning for followup of her atrial fibrillation status post pulmonary vein isolation at the [facility] in 2003, mild coronary disease status post non ST elevation myocardial infarction Status post catheterization at [facility] in August 2011, and bicuspid aortic valve with mildly dilated ascen ding aorta and mild aortic insufficiency by echocardiogram dated 07/2012. CT scan of the chest demonstrated no significant aortic dilatation according to the report. Prior to our last visit, the patien kathie has had progressively worsening dyspnea on exertion, shortness of breath, positional lightheadedness and dizziness, and hypotension. She has had no presyncope or syncope episodes, and no anginal sympt oms. Patient got fairly winded just coming in from the parking lot today despite taking the elevator. She denies any sentinel events. patient underwent left and right heart catheterization at [facility] by myself on 03/05/17 which demonstrated normal coronary arteries, mild aortic valvular calcification, unable to cross the bicuspid aortic valve and mild aortic insufficiency. Recommend PFTs which were performed on 03/18/17 which showed mild large irreversible ventilatory defect with a diffusion defect out of proportion. She was placed on chronic O2 therapy which she is taking. She is also found to have MEGHAN and has been placed on BiPAP with good results. patient wears her oxygen when walking when she desats below 89%. She is taking and tolerating her medicines well. Returns for foll ow-up, and complains of intermittent palpitations, but actually are occurring less frequently than our last visit. She did visit with Dr. Magaña, who made no changes to her medications and possibly recommended a monitoring device although none was placed. She reports palpitations lasting anywhere between a few seconds up to several minutes which are consistent with her previous atrial fibrillation . She drinks 1 cup of coffee in the morning, and occasional diet Pepsi's in the evening, we can relate no correlation between her palpitations and caffeine use. She is also lost about 40 pounds being on weight watchers, but her palpitations preceded her weight watchers. She denies any presyncope or syncope, chest pain or anginal symptoms with her palpitations. Her most recent echocardiogram dated 09/21 02/04 showed an EF of 65%, RVSP of 32 mmHg, stable bicuspid aortic valve with a peak/mean gradient of 32/17 mmHg. In our office today her blood pressure is 108/68, and a pulse of 58 and regular. Her phy sical exam Demonstrates diminished carotid pulses bilaterally, regular rate and rhythm, 3/6 systolic ejection murmur best or the upper right sternal border, no diastolic murmurs, no edema noted. Her lip ids as of 08/03 showing HDL of 56 and LDL of 215. Lipids as of 02/18/17 showed LDL of 165 and HDL of 54. Repeat lipids as of 10/07/17 show an LDL of 102 and an HDL of 58. Her lipids as of 04/21/18 showing LD L 111 and HDL of 68. Intake Vital Signs04/22/18 Height 5 ft 4 in 04/22/18 Weight: 197 lb 04/22/18 Body Mass Index (BMI) 33.7 04/22/18 Blood Pressure 120/78 Intake Visit Reasons: 6 M FU Allergies fl ecainide Allergy (Verified 04/22/18 10:47) Unknown rosuvastatin [From Crestor] Allergy (Verified 04/22/18 10:47) Unknown sotalol Allergy (Verified 04/22/18 10:47) Unknown Medications Lamotrigine [Mccormick ictal] 200 mg PO DAILY 12/17/14 [History Confirmed 04/22/18] Potassium Chloride [K-Dur] 10 meq PO DAILY 12/17/14 [History Confirmed 04/22/18] Verapamil HCl [Calan Sr] 120 mg PO DAILY 12/17/14 [History C onfirmed 04/22/18] Aspirin [Aspirin, Baby] 81 mg PO DAILY@0800 03/04/17 [History Confirmed 04/22/18] ezetimibe 10 mg tablet 10 mg PO QDAY 10/18/17 [History Confirmed 04/22/18] gemfibrozil 600 mg tablet 600 mg PO BID 10/18/17 [History Confirmed 04/22/18] trazodone 100 mg tablet 200 mg PO DAILY tab 10/18/17 [History Confirmed 04/22/18] ramipril 10 mg capsule 10 mg PO QDAY 10/19/17 [History Confirmed 12/05] sertraline 100 mg tablet 100 mg PO BID tab 10/19/17 [History Confirmed 04/22/18] metoprolol tartrate 100 mg tablet 100 mg PO BID #180 tab 10/26/17 [Rx Confirmed 04/22/18] hydrochlorothiazide 25 m g tablet 25 mg PO QDAY #90 tab 11/10/17 [Rx Confirmed 04/22/18] PFS Medical History Long-term use of high- risk medication (Chronic) Hyperlipidemia (C hronic) Bipolar disorder (Chronic) Non-rheumatic aortic stenosis (Chronic) Obstructive sleep apnea (Chronic) Secondary pulmonary arterial hypertension (Chronic) GERD (gastroesophageal reflux disease) (C hronic) Non-ST elevation (NSTEMI) myocardial infarction (Chronic 08/21/11) Palpitation (Acute) Hypertension (Chronic) Persistent atrial fibrillation (Chronic) Dyslipidemia (Chronic) Bicuspid aortic caryl ve (Chronic) Surgical History history of pulmonary vein isolation (Chronic) History of maze procedure (Resolved) H/O discectomy (Resolved) History of r ight and left heart catheterization (Resolved 03/05/17) Family History Brother CAD (coronary artery disease) from [place] age 52 Father Dementia Mother Cancer Social History Smoking Status: Former smoker how long ago did patient quit smokin second hand exposure: No alcohol intake: never substance use type: does not use caffeine: No what t ype of physical activity do you participate in: none ROS Const Const: Negative for weakness, weight gain, weight loss, frequent falls, fatigue or excessive sweating Eyes Eyes: Negative for change i n vision, blurry vision or transient loss of vision ENT ENT: Positive for dizziness (HX Vertigo) and balance problems (unsteadiness due to vertigo) Cardio Chest Pain: No Palpitations: Yes (occasional) f eels like its: fast Edema: None Muscle aches with walking: None Resp Respiratory: Negative for SOB with activity or SOB at rest GI GI: Negative vomiting or vomiting blood/hematemesis : Negative for hematuria Musc Musc: Positive for balance problems (unsteadiness due to vertigo), muscle aches/ myalgia (neck,bilat shoulders, back) and joint pain (HX Arthritis); negative for muscle weakness Skin Ski n: Negative non-healing lesions or rash Neuro Neuro: Positive for vertigo and dizziness (HX Vertigo); negative for lightheadedness, orthostatic symptoms, weakness, frequent falls or blurry vision Glenn H ematologic/Lymphatic: Negative for easy bleeding Endo Endo: Negative for fatigue or excessive sweating Psych Psych: Negative for anxiety or depression Allergy Allergy/Immunology: Negative for hives, Neg ative for rash Cardiology Exam Const Appearance: cooperative, healthy appearing and no acute distress Nutritional Appearance: well nourished Orientation: alert, oriented x3 and oriented to person Head Head: normal to inspection, atraumatic and normocephalic Nose: external nose normal Face and Sinus: face symmetric Mouth: oral mucosae normal Eyes General: appearance normal, both eyes and all related structures Eyelids: eyelids normal Conjunctivae: conjunctivae normal Pupils: PERRL and normal by confrontation EOM: EOM intact bilaterally Neck Neck: normal visual inspection and full ROM Carotids: norm al carotid upstroke Chest Chest inspection: normal inspection of the chest Auscultation: Bilateral: Clear to Auscultation Cardio Palpation: normal PMI Rate: regular rate Rhythm: regular rhythm Heart cristy nds: S2 normal Murmur: Grade 2/6, crescendo-decrescendo and high pitched GI GI: normal to inspection, no hepatosplenomegaly and bowel sounds present Neuro General: alert, oriented x3, awake, CN's II-XI intact bilaterally and moves all extremities Skin Skin: no rashes or lesions noted Extremities Pulses: Normal: Right Femoral Pulse, Left Femoral Pulse, Right Dorsalis Pedis Pulse, Left Dorsalis Pedis Pu lse, Right Posterior Tibial Pulse, Left Posterior Tibial Pulse, Right Radial Pulse, Left Radial Pulse Lower Extremity Edema: None: Bilateral Psych Psychological: normal affect Assessment AND Plan 1. B icuspid aortic valve Q23.1 Plan 1. Bicuspid aortic valve: The patient has a history of bicuspid aortic valve, with mild aortic stenosis by peak and mean gradient by echocardiogram in September 2017 and sh e is asymptomatic from a valvular standpoint. She denies any chest pain, angina, shortness of breath, lower extremity edema, dyspnea on exertion or worsening exercise capacity. Recommend yearly surveill ance with a repeat echocardiogram in September 2018. In the meantime she will continue her hydrochlorothiazide, baby aspirin, metoprolol and ramipril. Orders Orders: 2. Dyslipidemia E78.5 Plan 2. Hyperl ipidemia: I believe her LDL and HDL cholesterol are about as well controlled as one could hope for given her inability to take statins. Her most recent lipids on 10/07/17 showed an HDL of 58 and LDL of 1 02. Continue gemfibrozil and see 3. Persistent atrial fibrillation I48.1 Plan 3. Atrial fibrillation: The patient appears to have atrial fibrillation intermittently for only a few seconds which have ac tually improved since additional weight loss. Recommend continuing dual heart rate controlling therapy with metoprolol and verapamil. In addition we will order a 30 day monitor to attempt to document ho racheal frequent her palpitations and possibly atrial fibrillation are recurring. She states they occur about 1 time per month. Will hold off on anticoagulation until the completion of her 30 day event monito r. 4. Return office in 6 months. This note was generated using a voice recognition system and there may be incorrect words, spelling or punctuation that were not noted when reviewing the office note pr ior to saving. Orders Orders: Plan Detail Other Orders Orders: Follow Up +6M (Richey) Coding Level of Care Code Off vis,est,level 3 Diagnoses Bicuspid aortic valve Q23.1 Dyslipidemia E78.5 Persisten t atrial fibrillation I48.1 Coding Level of Care Code Off vis,est,level 3 Diagnoses Bicuspid aortic valve Q23.1 Dyslipidemia E78.5 Persistent atrial fibrillation I48.1 04/22/18 1106 <Elect ronically signed by Stanley Richey MD> Date Stanley Richey MD Cosigner Signature: Date (if applicable) CC: 17-Feb-2018 6 Minute Walk Test Result: Comments: See Note; NOTES: [facility] Pulmonary Services/Neurology [address] [place] [address] MR#: [id number] Acct: [id number] Name: ADRIANA DILL Rep #: [id number] : 0 1955 63 From: Ernesto Webster MD Referring Dr: Yuni Banks NP Date: Ordering Dr: Sex: F C Location: PSN PSN 6 Minute Walk Test - 6 Minute Walk Test 6 Minute Walk Test: 6 Minute Walk Test PS N:6-Minute Walk Test Start: 02/17/18 08:49 Freq: Status: Active Protocol: [id number] Document 02/17/18 08:30 EW (Rec: 02/17/18 08:52 EW [id number]) 6 Minute Walk Test Date Performed 02/17/18 Time Performed 08:30 Height 5 ft 4 in Weight: 86.636 kg Weight in Pounds 191.[address]: Yuni Banks Assistive device used: None Pre-test Oxygen Delivery Method Room Air Pulse Ox (%) 95 Pulse Rate (60-100 beats/min) 62 Dyspnea Leigha Scale (0-10) 0 Exertion Leigha Scale (6-20) 6 1st minute Oxygen Delivery Method Room Air Pulse Ox (%) 91 Pulse Rate (60-100 beats/min) 68 2nd minute Oxygen Delivery Method Room Air Pulse Ox (%) 90 Pulse Rate (60-100 beats/min) 99 3rd minute Oxygen Delivery Method Room Air Pulse Ox (%) 91 Pulse Rate (60-100 beats/min) 105 H 4th minute Oxygen Delivery Method Room Air Pulse Ox (% ) 91 Pulse Rate (60-100 beats/min) 99 5th minute Oxygen Delivery Method Room Air Pulse Ox (%) 92 Pulse Rate (60-100 beats/min) 105 H 6th minute Oxygen Delivery Method Room Air Pulse Ox (%) 91 Pulse Rate (60-100 beats/min) 101 H Post-test Oxygen Delivery Method Room Air Pulse Ox (%) 96 Pulse Rate (60-100 beats/min) 66 Dyspnea Leigha Scale (0-10) 3 Exertion Leigha Scale (6-20) 13 Full Laps Walked 12 Partial Lap, Number of Tiles Walked 0 Total Distance Walked (ft) 708 - Interpretation Interpretation: The patient was able to ambulate only 780 feet over the course of 6 minutes on room air with no assisti ve devices or breaks. The patient did experience significant desaturation from 95% at baseline to as low as 90%. Some reflexive tachycardia was noted. These findings are consistent with a respiratory li mitation exercise tolerance. - Recommendations Recommendations: No supplemental oxygen is indicated at this time. However, patient will need to be followed closely given level of desaturation. 01/20 10/07 1043 <Electronically signed by Ernesto Webster MD> Date Ernesto Webster MD CC: Date Dictated: 02/17/18 104 Date Transcribed: 02/17/181039 Tile Erector: Ernesto Webster Signed 12-Jan-2018 Pulmonary Visit Report Result: Comments: See Note; NOTES: Pulmonary Medicine [address] [place] [address] OFFICE VISIT Date of Service: 01/11/18 MR#: [id number] Acct: [id number] Name: ADRIANA GALVAN Rep #: [id number] : 1955 Provider: Yuni Banks Age/Sex: 63/F [place] [facility] [place] Status: Signed Assessment AND Plan 1. MEGHAN (obstructive sleep apnea) G47.33 Status Chronic Plan She is using and benefiting from current pressure support therapy. No indication for a titration study at this time, however, we did discuss that as she continues to lose weight and may come a point whe n her pressure support therapy needs will be less. She conveys understanding. No additional testing at this time, follow-up with Dr. Webster in 6 months. 2. Secondary pulmonary arterial hypertension I27 .21 Status Chronic Plan Stable. She has supplemental oxygen at home but has not needed it for quite some time. She would like to be evaluated for possibly having this oxygen discontinued and removed fro m her home. Given that her last pulmonary stress test was borderline requiring supplement oxygen, we will repeat the testing and if she still does not require it we will discontinue the oxygen. She agre es with this plan. Follow-up with Dr. Webster in 6 months. Orders Orders: 3. BMI 33.0-33.9,adult Z68.33 Status Chronic Plan Improving. She has been successful with weight watchers, she is pleased with h er progress. Continue to encourage weight loss. Follow-up with Dr. Webster in 6 months. Plan Detail Follow Up 6 Months ([facility]) HPI HPI Comments Details: PFT, Walk, and Titration prior. Happy Birthday. N o issues with Bipap (DASCO). Dry mouth has improved with wearing the Bipap vs Cpap. Has O2 at home that she wants to get out of the house its just sitting there. This patient presents to the office today for a routine follow-up on her obstructive sleep apnea and pulmonary arterial hypertension. She is ambulatory, currently on room air and she accompanied by her . She denies any visits to the ED urgent care for any respiratory illnesses since her last office visit. She has not required any antibiotics or prednisone for breathing problems. She denies any shortness of breath , at rest, with conversation or even on exertion. She denies any cough, sputum production or hemoptysis. She also denies any wheezing, chest tightness, chest pain or palpitations. She has not experience d any fever, chills or body aches. She is not currently on any inhalers. She has not tried any [id number] medications. She is pleased that she continues to lose weight, her weight is down approxi mately 10 pounds since her last office visit. She is compliant with diet and exercise. She is using Weight Watchers and has been successful at losing 35 pounds overall. Pulmonary function test complete d on December 21, 2017 and interpreted as showing mild restrictive ventilatory defect and a symmetric reduction diffusing capacity, there is noted to be a significant improvement compared to previous study. FVC 71% of predicted, FEV1 76% of predicted, FEV1/FVC 82% of predicted, TLC 78% of predicted, RV 82% predicted and DLCO 53% of predicted. Pulmonary stress test completed on July 21, 2017 shows that the patient was able to ambulate 900 daily over the course of 6 minutes, lowest oxygen saturation was 90%. She is not currently require supplemental oxygen with exertion at this time. Complaints report for the past 30 days was reviewed and shows 100% compliance, average use is 5 hours and 43 minutes. Current settings are 16/12 cm of water. Current AHI is 3 events per hour and leaks do not appear to b e an issue. Intake Vital Signs01/11/18 Height 5 ft 4 in 01/11/18 Weight: 196 lb Intake Visit Reasons: 6 M FU DME Vendor: [employer] Allergies flecainide Allergy (Verified 01/11/18 09:23) Unknown rosuvas tatin [From Crestor] Allergy (Verified 01/11/18 09:23) Unknown sotalol Allergy (Verified 01/11/18 09:23) Unknown Medications Lamotrigine [Lamictal] 200 mg PO DAILY 12/17/14 [History Confirmed 8] Potassium Chloride [K-Dur] 10 meq PO DAILY 12/17/14 [History Confirmed 01/11/18] Verapamil HCl [Calan Sr] 120 mg PO DAILY 12/17/14 [History Confirmed 01/11/18] Aspirin [Aspirin, Baby] 81 mg PO DAILY@ 0800 03/04/17 [History Confirmed 01/11/18] ezetimibe 10 mg tablet 10 mg PO QDAY 10/18/17 [History Confirmed 01/11/18] gemfibrozil 600 mg tablet 600 mg PO BID 10/18/17 [History Confirmed 01/11/18] trazod one 100 mg tablet 200 mg PO DAILY tab 10/18/17 [History Confirmed 01/11/18] ramipril 10 mg capsule 10 mg PO QDAY 10/19/17 [History Confirmed 01/11/18] sertraline 100 mg tablet 100 mg PO BID tab 10/19/17 [History Confirmed 01/11/18] metoprolol tartrate 100 mg tablet 100 mg PO BID #180 tab 10/26/17 [Rx Confirmed 01/11/18] hydrochlorothiazide 25 mg tablet 25 mg PO QDAY #90 tab 11/10/17 [Rx Confirmed 12/20 01/05] [facility] Medical History Long-term use of high-risk medication (Chronic) Hyperlipidemia (Chronic) Bipolar disorder (Chronic) Non-rheumatic aor tic stenosis (Chronic) Obstructive sleep apnea (Chronic) Secondary pulmonary arterial hypertension (Chronic) GERD (gastroesophageal reflux disease) (Chronic) Non-ST elevation (NSTEMI) myocardial infarct ion (Chronic 08/21/11) Palpitation (Acute) Hypertension (Chronic) Persistent atrial fibrillation (Chronic) Dyslipidemia (Chronic) Bicuspid aortic valve (Chronic) Surgical History history of pulmonary vein isolation (Chronic) History of maze procedure (Resolved) H/O discectomy (Resolved) History of right and left heart catheterization (Resolved 03/05/17) Family History Brother CAD (coronary artery disease) from [place] age 52 Father Dementia Mother Cancer Social History Smoking Status: Former smoker how long ago did patient quit smokin second hand exposure: No alcohol intake: never substance use type: does not use caffeine: No what type of physical activity do you particip ate in: none Review of Systems Const CONSTITUTIONAL: Positive weight loss (Weight wathchers ); negative anorexia, body ache, chills, daytime sleepiness, fever(s), night sweats, oral thrush, stops b reathing during sleep, weight loss, sleeping in chair, fatigue, weight gain, frequent colds, seasonal allergies, other, headache(s) or orthopnea EETM Ear Nose Throat Mouth: Positive nasal discharge; neg ative hard of hearing, hearing normal, hoarseness, dry mouth in morning, change in vision, itchy eyes, eye pain, swallowing Difficulty, ear pain, nose bleed, headache(s), mouth pain, nasal congestion, p ost nasal drip, sinus pain, sinus pressure, sore throat or other Cardio Cardiovascular: Negative chest pain, chest pain at rest, chest pain with activity, irregular heart rhythm, edema, shortness of tamra ath when lying down, palpitations, murmur or other Resp Respiratory: Positive as per HPI; negative shortness of breath, pain with cough, wheezing, chest congestion, cough, chest tightness, pain on inspi ration, inhalers, increase use of rescue inhalers, snoring, apnea or other Gastro Gastrointestional: Negative bloody stools, change in appetite, difficulty swallowing, reflux, hematemesis, melena stool, loose stool, constipation or other Genitourinary: Negative blood in urine, nocturia, pain with urination or other Musc Musculoskeletal: Negative body pain, back pain, neck pain or other Skin/Breast Skin/Breast: Negative dry skin, itching, rash, unusual bruising, breast lump or other Neuro Neurological: Negative restless legs, confusion, weakness or other Psych Psychocological: Negative abnormal sl eep pattern, anxiety, thoughts of hurting self/others, hopelessness or other Lymph Lymphatic: Negative easy bleeding, easy bruising, swollen lymph nodes or other Exam Const Constitutional: Positive co nversant, cooperative, in no acute respiratory distress, healthy appearing, well developed, well nourished, good hygiene and obese Head Head: Positive normocephalic and atraumatic; negative cyanosis of lips/distal nose Eyes Eye: Positive clear conjunctiva and nystagmus; negative scleral abnormality Ears Ear: Positive external ears normal; negative hard of hearing or hearing normal Nose Nose: Positive external nose normal and no nasal discharge; negative epistaxis Mouth Mouth: Positive oral mucosae normal, no lesions, good dentition and posterior oropharynx is adequate; negative post nasal drip, wendie dorous breath or oral thrush present Mallampati Score: II: Mallampati Score Neck Neck: Positive normal visual inspection, full ROM, trachea midline and thick neck; negative lymphadenopathy, JVD or tende r Chest Wall Chest: Positive normal inspection of the chest and symmetric chest movement; negative increased A/P diameter Resp lung sounds: Positive clear to auscultation, good air exchange, normal expi ratory time and normal respiratory effort; negative diminished, wheezes, rhonchi, rales, dullness to percussion or wheeze present on forced exhalation Cardio Cardiac: Positive regular rate, regular rhyt hm, S1 normal and S2 normal; negative murmur GI GI: Positive normal to inspection, normal bowel sounds and obese; negative distended Genitourinary: Positive deferred Musc Musculoskeletal: Positive st bhavin gait and ROM normal; negative kyphosis or scoliosis Skin Pulmonary Skin Exam: Positive intact; negative rash, lesion, ulcers, erythema, scaly or dermal atrophy Pulses Pulse: Yes pulses normal x4 ex tremities Extremities Extremities: Yes capillary refill normal, No clubbing, No cyanosis, No edema Neuro Neurologic: Yes conversant, Yes no focal neuro deficits, Yes cooperative, Yes normal cognition, Y es normal coordination, Yes normal concentration, Yes understands questions Lymph Lymphatic: No lymphadenopathy, No tenderness, No cervical adenopathy, No axillary adenopathy Psych Appearance: Positive grossly normal, eye contact and well kempt Mental Status: Positive mental status grossly normal Mood: Positive congruent mood Affect: Positive normal affect Coding Level of Care Code Off vis,est,level 3 Diagnoses MEGHAN (obstructive sleep apnea) G47.33 Secondary pulmonary arterial hypertension I27.21 BMI 33.0-33.9,adult Z68.33 01/12/18 1520 <Electronically signed by Yuni PRATHERC&am p;#62; Date Yuni PRATHER C Cosigner Signature: Date (if applicable) CC: Lydia Copeland DO 21-Dec-2017 Pulmonary Function Report Comp Result: Comments: See Note; NOTES: [facility] Pulmonary Services/Neurology [address] [place] [address] MR#: [id number] Acct: [id number] Name: ADRIANA DILL Rep #: [id number] : 62 From: Ernesto Webster MD Referring Dr: Ernesto Webster MD Status: REG CLI Ordering Dr: Date: Location: PSN Sex: F C COMPLETE PULMONARY FUNCTION TEST INTERPRETATION Brief HPI: Patient is a 62 year old female, currently under the care of myself, who presents to [facility] for complete pulmonary function tests secondary to diagnosis of pulmonary hypertension. Respira tory therapist reports good effort and reproducible results. Interpretation: Forced expiration spirometry shows no large airways obstructive ventilatory defect with an FEV1 of 76 % predicted. There is no significant bronchodilator response by ATS criteria. Spirograms are of good quality and plateau normally. The respiratory flow volume loop shows a normal pattern. Lung volumes by body plethysmograp hy show a decreased total lung capacity at 3.79 L, 78 % predicted. All other lung volumes are reduced symmetrically. Diffusion capacity by carbon monoxide is decreased at 53 % predicted. The airway res istance is normal. Compared to previous pulmonary function tests from 03/16/2017, there has been a significant change in FVC and DLCO. Impression: Mild restrictive ventilatory defect with a symmetric reduction diffusing capacity consistent with possible interstitial lung disease. There has been significant improvement compared to previous study. 12/21/17 1441 <Electronically signed by Dayday Webster MD> Date Ernesto Webster MD CC: Ernesto Webster MD; Lydia Copeland DO Date Dictated: 12/21/17 1438 Date Transcribed: 12/21/171437 Tile Erector: DAVID Signed 19-Oct-2017 Cardiology Visit Report Result: Comments: See Note; NOTES: [facility] [address] [place] [address]. [address] [place] [address] OFFICE VISIT Date of Service: 10/19/17 MR#: [id number] Acct: [id number] Name: ADRIANA DILL Rep #: [id number] : 1955 Provider: Stanley Richey MD Age/Sex: 62/F [place] [facility] [place] Signed HPI 3 M FU: Chief Complaint: Routine follow-up Details: Referring physician: Dr. Jeanne Quinones I t was a pleasure seeing your patient, Adriana Dill, today in our office. She Is a 62-year-old female and is returning for followup of her atrial fibrillation status post pulmonary vein isolation at the [facility] in 2003, mild coronary disease status post non ST elevation myocardial infarction Status post catheterization at [facility] in August 2011, and bicuspid aortic valve with mildly dilated asce nding aorta and mild aortic insufficiency by echocardiogram dated 07/2012.. CT scan of the chest demonstrated no significant aortic dilatation according to the report. since her last visit, the patient has had progressively worsening dyspnea on exertion, shortness of breath, positional lightheadedness and dizziness, and hypotension. She has had no presyncope or syncope episodes, and no anginal sympto ms. Patient got fairly winded just coming in from the parking lot today despite taking the elevator. She denies any sentinel events. patient underwent left and right heart catheterization at [facility] by myself on 03/05/17 which demonstrated normal coronary arteries, mild aortic valvular calcification, unable to cross the bicuspid aortic valve and mild aortic insufficiency. Recommend PFTs which were performed on 03/18/17 which showed mild large irreversible ventilatory defect witha diffusion defect out of proportion. She was placed on chronic O2 therapy which she is taking. She is al so found to have MEGHAN and has been placed on BiPAP with good results. patient wears her oxygen when walking when she desats below 89%. She is taking and tolerating her medicines well. Returns for follow -up, and complains of intermittent palpitations occurring more frequently over the last several weeks to months. She reports palpitations lasting anywhere between a few seconds up to several minutes whi ch are consistent with her previous atrial fibrillation. She drinks 1 cup of coffee in the morning, and occasional diet Pepsi's in the evening, we can relate no correlation between her palpitations and caffeine use. She is also lost about 30 pounds being on weight watchers, but her palpitations preceded her weight watchers. She denies any presyncope or syncope, chest pain or anginal symptoms with her palpitations. Her most recent echocardiogram dated 10/14/17 showed an EF of 65%, RVSP of 32 mmHg, stable bicuspid aortic valve with a peak/mean gradient of 32/17 mmHg. In our office today her blood pre ssure is 108/68, and a pulse of 58 and regular. Her physical exam Demonstrates diminished carotid pulses bilaterally, regular rate and rhythm, 3/6 systolic ejection murmur best or the upper right sterna l border, no diastolic murmurs, no edema noted. Her lipids as of 08/03 showing HDL of 56 and LDL of 215. Lipids as of 02/18/17 showed LDL of 165 and HDL of 54. Repeat lipids as of 10/07/17 show an LDL of 1 02 and an HDL of 58. Intake Vital Signs10/19/17 Height 5 ft 4 in 10/19/17 Weight: 202 lb 10/19/17 Body Mass Index (BMI) 34.7 10/19/17 Blood Pressure 108/68 10/19/17 Respiratory Rate 16 10/19/17 Pulse Rate 58 Intake Visit Reasons: 3 M FU Allergies flecainide Allergy (Verified 03/04/17 14:02) Unknown rosuvastatin [From Crestor] Allergy (Verified 03/04/17 14:02) Unknown sotalol Allergy (Verified 14:02) Unknown Medications Lamotrigine [Lamictal] 200 mg PO DAILY 12/17/14 [History Confirmed 10/19/17] Metoprolol Tartrate [Lopressor (Beta Sheba)] 100 mg PO BID 12/17/14 [History Confirmed 10/19/17] Potassium Chloride [K-Dur] 10 meq PO DAILY 12/17/14 [History Confirmed 10/19/17] Verapamil HCl [Calan Sr] 120 mg PO DAILY 12/17/14 [History Confirmed 10/19/17] Aspirin [Aspirin, Baby] 81 mg PO DAILY@0800 03/04/17 [History Confirmed 10/19/17] ezetimibe 10 mg tablet 10 mg PO QDAY 10/18/17 [History Confirmed 10/19/17] gemfibrozil 600 mg tablet 600 mg PO BID 10/18/17 [History Confirmed 10/19/17] trazodone 100 mg tablet 200 mg PO DAILY tab 10/18/17 [History Confirmed 10/19/17] hydrochlorothiazide 25 mg tablet 25 mg PO QDAY 10/19/17 [History Confirmed 10/19/17] ramipril 10 mg capsule 10 mg PO QD AY 10/19/17 [History Confirmed 10/19/17] sertraline 100 mg tablet 100 mg PO BID tab 10/19/17 [History Confirmed 10/19/17] PFSH Medical History Non- rheumatic aortic stenosis (Chronic) Secondary pulmo nary arterial hypertension (Chronic) Palpitation (Acute) Hypertension (Chronic) Persistent atrial fibrillation (Chronic) Dyslipidemia (Chronic) Bicuspid aortic valve (Chronic) Bipolar disorder (Chronic) GERD (gastroesophageal reflux disease) (Chronic) Non-ST elevation (NSTEMI) myocardial infarction (Chronic 08/21/11) Obstructive sleep apnea (Chronic) Surgical History H/O discectomy (Chronic) Histo ry of maze procedure (Chronic) History of right and left heart catheterization (Chronic 03/05/17) history of pulmonary vein isolation (Chronic) Family History Brother CAD (coronary artery disease) Di ed from [place] age 52 Social History Smoking Status: Former smoker ROS Const Const: Negative for difficulty sleeping, fatigue, excessive sweating, weakness, frequent falls or headache(s) Eyes Eyes: N egative for loss of peripheral vision, transient loss of vision, blurry vision or double vision ENT ENT: Negative for Nosebleed/epistaxis, Negative for balance problems, Negative for headache(s), Negati ve for dizziness Cardio Chest Pain: No Palpitations: Positive for Yes (for the past 5 months, she has had weekly episodes of palpitations rate>150) Palpitations: fast, pounding Edema: None Muscl e aches with walking: None Additional Details: Has SOB when she has her tachycardia Resp Respiratory: Negative for SOB with activity, SOB at rest, SOB orthopnea\SOB lying down or paroxysmal nocturnal dy spnea Additional Details: uses bi-pap GI GI: Negative nausea or heartburn : Negative for hematuria Musc Musc: Negative for muscle aches/ myalgia, muscle weakness, joint pain or balance problems Ski n Skin: Negative non-healing lesions, unusual bruising or rash Neuro Neuro: Negative for weakness, Negative for frequent falls, Negative for blurry vision, Negative for headache(s), Negative for dizzine ss, Negative for lightheadedness, Negative for orthostatic symptoms, Negative for double vision Glenn Hematologic/Lymphatic: Negative for easy bruising Endo Endo: Negative for fatigue, excessive sweating or increased thirst/drinking Psych Psych: Negative for anxiety or depression Allergy Allergy/Immunology: Negative for hives, Negative for rash Cardiology Exam Const Appearance: cooperative, healthy a ppearing and no acute distress Nutritional Appearance: well nourished Orientation: alert, oriented x3 and oriented to person Head Head: normal to inspection, atraumatic and normocephalic Nose: external nose normal Face and Sinus: face symmetric Mouth: oral mucosae normal Eyes General: appearance normal, both eyes and all related structures Eyelids: eyelids normal Conjunctivae: conjunctivae normal Pupi ls: PERRL and normal by confrontation EOM: EOM intact bilaterally Neck Neck: normal visual inspection and full ROM Carotids: normal carotid upstroke Chest Chest inspection: normal inspection of the ches t Auscultation: Bilateral: Clear to Auscultation Cardio Palpation: normal PMI Rate: regular rate Rhythm: regular rhythm Heart sounds: S2 normal Murmur: Grade 2/6 and crescendo-decrescendo GI GI: normal to inspection, no hepatosplenomegaly and bowel sounds present Neuro General: alert, oriented x3, awake, CN's II-XI intact bilaterally and moves all extremities Skin Skin: no rashes or lesions noted Extr emities Pulses: Normal: Right Femoral Pulse, Left Femoral Pulse, Right Dorsalis Pedis Pulse, Left Dorsalis Pedis Pulse, Right Posterior Tibial Pulse, Left Posterior Tibial Pulse, Right Radial Pulse, Lef t Radial Pulse Lower Extremity Edema: None: Bilateral Psych Psychological: normal affect Assessment AND Plan Plan 1. Paroxysmal atrial fibrillation: The patient is status post Maze procedure and 2 pre vious atrial fibrillation ablation procedures, which have helped fairly well up until the last several months when the patient has had recurrent intermittent palpitations which are self-limiting. Patie nt symptoms last anywhere between a few seconds up to a few minutes, and are consistent with her previous atrial fibrillation. Given the patient's long history of atrial fibrillation, and the fact that she is on high-dose beta-sheba and verapamil for heart rate and rhythm control, I am hesitant to place the patient on antiarrhythmic therapy as this is beyond my normal and customary skill set. I megha mmended the patient be referred to Dr. Magaña [facility] for further atrial fibrillation evaluation and possible repeat A. fib ablation procedure if indicated. If not indicated I racheal roque appreciate his assistance with antiarrhythmic therapy going forward. In order to prevent possible CVA, I recommend that she be started on Eliquis 2.5 mg p.o. twice daily. If her insurance does not cover this, she will need to take Coumadin therapy to have an INR between 2.0 and 3.0. 2. Bicuspid aortic valve: Her most recent echocardiogram demonstrated mild aortic stenosis with an estimated CELESTE of 1.2 cm , with a peak/mean gradient of 33/70 mmHg. She had relatively normal RVSP as well, and has had no symptoms of shortness of breath. Do not believe the patient requires aortic valve replacement at this time, and is most likely not materially impacting on her recurrent palpitations. 3. Hyperlipidemia: Her LDL and HDL cholesterol are fairly well-controlled. Continue Zetia and gemfibrozil. 4. R eturn office in 6 months. This note was generated using a voice recognition system and there may be incorrect words, spelling or punctuation that were not noted when reviewing the office note prior to s tomng. Plan Detail Follow Up 6 Months (Kaiden) Coding Level of Care Code Off vis,est,level 3 10/19/17 1137 <Electronically signed by Stanley Richey MD> Date Stanley Richey MD Cosigner Signature: Date (if applicable) CC: 11-Oct-2017 Echocardiogram Complete Result: Comments: See Note; NOTES: [facility] Cardiovascular Services [address] [place] [address] Echo Complete 10/07/17 1045 MR#: [id number] Acct: [id number] Name: ADRIANA DILL ep #: [id number] : 1955 62 From: Stanley Richey MD Attending Dr: Stanley Richey MD Status: REG I Ordering Dr: Stanley Richey MD Date: 10/07/17 Location: [facility] Sex: F C Admitted: Reason For S tudy: PHTN, TOM disorder Procedure This was a 2D Doppler, Color Flow transthoracic echocardiogram. Exam performed in department. Left Ventricle Normal size and thickness. The estimated ejection fracti on is 65 %. Stage 2 diastolic dysfunction. No regional wall motion abnormalities noted. Right Ventricle Normal size and thickness. Normal systolic function. Atria The left atrium is mildly enlarged. N ormal right atrium. Normal atrial septum. Mitral Valve The mitral valve is structurally normal. No prolapse or stenosis seen. Tricuspid Valve Normal tricuspid valve. Mild (1+) tricuspid valve insuffic iency. Right ventricular systolic pressure estimated to be 32 mmHg. Aortic Valve Bicuspid aortic valve. Moderate focal aortic valve thickening. Moderate restriction of the aortic valve. Mild focal aort ic valve calcification. Mild to moderate aortic stenosis. Peak aortic valve gradient 33 mmHg. Mean aortic valve gradient 17 mmHg. Calculated aortic valve area (continuity equation) is 1.2 cm2. Pulmonic Valve Normal pulmonic valve. Mild (1+) pulmonic valve insufficiency. Great Vessels Normal aortic root. Normal arch. Normal inferior vena cava. Inferior vena cava collapse with sniff. Pericardium/Pleur al No pericardial effusion. MMode/2D Measurements AND Calculations LVIDd: 4.2 cm IVSd: 1.1 cm LVOT diam: 2.0 cm LVIDs: 3.0 cm LVPWd: 1.1 cm LVOT area: 3.2 cm2 RVDd: 3.2 cm FS: 29.8 % LA dimension: 3.8 cm LAV(MOD-bp): 66.9 ml Aortic Valve Planimetry: 1.3 cm2 LAV(MOD-bp) Indexed: 34.3 ml/m2 LAV(MOD-sp2): 65.2 ml LAV(MOD-s p4): 65.0 ml LA A4 area: 20.1 cm2 Time Measurements MV dec time: 0.24 sec Doppler Measurements AND Calculations MV E m ax brina: 76.4 cm/sec Lat Peak E' Brina: 10.8 cm/sec Med Peak E' Brina: 5.6 cm/sec MV A max brina: 47.9 cm/sec E/E' lat: 7.0 E/E' med: 13.8 MV E/A: 1.6 Ao V2 max: 285.0 cm/sec LV V1 max: 104.5 cm/sec SV(LVOT): 86.9 ml Ao max P.5 mmHg LV V1 max P.4 mmHg Ao V2 mean: 196.4 cm/sec LV V1 mean P.5 mmHg Ao mean P.2 mm Hg LV V1 mean: 75.1 cm/sec Ao V2 VTI: 64.7 cm LV V1 VTI: 26.7 cm CELESTE(I,D): 1.3 cm2 CELESTE(V,D): 1.2 cm2 PA V2 max: 77.6 cm/ sec TR max brina: 259.1 cm/sec TR max P.9 mmHg Interpretation Summary The estimated ejection fraction is 65 %. Stage 2 diastolic dysfunction. The left atrium is mildly enlarged. Mild (1+) tricuspid valve insufficiency. Right ventricular systolic pressure estimated to be 32 mmHg. Bicuspid aortic valve. Mild to moderate aortic stenosis. Compared to echo report dated 08/26/2016, no appreciable change s noted. Ordering Physician: Stanley Richey Referring Physician: Lydia Copeland Performed By: Charlene Gallagher, RDCS, RVT 10/11/17 1039 Date Stanley Richey MD CC: Stanley Richey MD; Lydia Copeland DO Date Dictated: 10/07/17 1045 Date Transcribed: 10/11/17 1039 Tile Erector: Signed 23-Jul-2017 6 Minute Walk Test Result: Comments: See Note; NOTES: [facility] Pulmonary Services/Neurology [address] [place] [address] MR#: [id number] Acct: [id number] Name: ADRIANA DILL Rep #: [id number] : [id number] 1955 62 From: Ernesto Webster MD Referring Dr: Ernetso Webster MD Date: Ordering Dr: Sex: F C Location: PSN PSN 6 Minute Walk Test - 6 Minute Walk Test 6 Minute Walk Test: 6 Minute Walk Test PSN:6- Minute Walk Test Start: 07/21/17 09:24 Freq: Status: Active Document 07/21/17 09:05 [facility] [place] (Rec: 07/21/17 09:28 [facility] [place] [id number]) 6 Minute Walk Test Date Performed 07/21/17 Time Performed 09:05 Height 1.63 m Devon ght: 92.079 kg Weight in Pounds 203.[address]: Ernesto Webster Assistive device used: None Pre-test Oxygen Delivery Method Room Air Pulse Ox 95 Pulse Rate (beats/min) 61 Dyspnea Leigha Scale (0-10) 0 Exertion Leigha Scale (6-20) 6 1st minute Oxygen Delivery Method Room Air Pulse Ox 93 Pulse Rate (beats/min) 64 Number of Rests Taken 0 2nd minute Oxygen Delivery Method Room Air Pulse Ox 92 Pulse Rate ( beats/min) 71 Number of Rests Taken 0 3rd minute Oxygen Delivery Method Room Air Pulse Ox 91 Pulse Rate (beats/min) 79 Number of Rests Taken 0 4th minute Oxygen Delivery Method Room Air Pulse Ox 91 Puls e Rate (beats/min) 103 Number of Rests Taken 0 5th minute Oxygen Delivery Method Room Air Pulse Ox 90 Pulse Rate (beats/min) 102 Number of Rests Taken 0 6th minute Oxygen Delivery Method Room Air Pulse Ox 91 Pulse Rate (beats/min) 106 Number of Rests Taken 0 Post-test Oxygen Delivery Method Room Air Pulse Ox 96 Pulse Rate (beats/min) 64 Dyspnea Leigha Scale (0-10) 1 Exertion Leigha Scale (6-20) 12 Number of Rests Taken 0 Full Laps Walked 12 Partial Lap, Number of Tiles Walked 194 Total Distance Walked (ft) 902 - Interpretation Interpretation: The patient was able to ambulate a total of 902 feet over the course of 6 minutes on room air with no assistive devices or breaks. The patient did experience significant desaturation from a baseline of 95% to as low as 90% with ambulation. Some reflex tachyca rdia was noted. These findings are consistent with a respiratory limitation exercise tolerance. - Recommendations Recommendations: No supplemental oxygen is indicated at this time. However, patient w ill need to be followed closely given level of desaturation. 07/23/17712 <Electronically signed by Ernesto Webster MD> Date Ernesto Webster MD CC: Date Dictated: 07/23/17711 Date Transcribed: 07/23/17711 Tile Erector: Ernesto Webster Signed 25-Apr-2017 6 Minute Walk Test Result: Comments: See Note; NOTES: [facility] Pulmonary Services/Neurology [address] [place] [address] MR#: [id number] Acct: [id number] Name: ADRIANA DILL Rep #: [id number] : [id number] 1955 62 From: Michael Segal DO Referring Dr: Yuni Banks NP Date: Ordering Dr: Sex: F C Location: PSN PSN 6 Minute Walk Test - 6 Minute Walk Test 6 Minute Walk Test: 6 Minute Walk Test PSN :6-Minute Walk Test Start: 04/23/17 11:39 Freq: Status: Active Document 04/23/17 11:00 EW (Rec: 04/23/17 11:47 EW [id number]) 6 Minute Walk Test Date Performed 04/23/17 Time Performed 11:00 Height 19.51 m W eight: 102.058 kg Weight in Pounds 225.[address]: Yuni Banks Assistive device used: None Pre-test Oxygen Delivery Method Room Air Pulse Ox 94 Pulse Rate (beats/min) 70 Dyspnea Leigha Scale ( 0-10) 1 Exertion Leigha Scale (6-20) 6 1st minute Oxygen Delivery Method Room Air Pulse Ox 90 Pulse Rate (beats/min) 104 2nd minute Oxygen Delivery Method Room Air Pulse Ox 89 Pulse Rate (beats/min) 97 3r d minute Oxygen Delivery Method Room Air Pulse Ox 89 Pulse Rate (beats/min) 98 4th minute Oxygen Delivery Method Room Air Pulse Ox 88 Pulse Rate (beats/min) 107 5th minute Oxygen Flow Rate (L/min) 1 Oxy gen Delivery Method Nasal Cannula Pulse Ox 94 Pulse Rate (beats/min) 103 6th minute Oxygen Flow Rate (L/min) 1 Oxygen Delivery Method Nasal Cannula Pulse Ox 94 Pulse Rate (beats/min) 113 Post-test Oxyge n Flow Rate (L/min) 1 Oxygen Delivery Method Nasal Cannula Pulse Ox 95 Pulse Rate (beats/min) 75 Dyspnea Leigha Scale (0-10) 3 Exertion Leigha Scale (6-20) 11 Full Laps Walked 14 Partial Lap, Number of Tile s Walked 0 Total Distance Walked (ft) 826 04/23/17 11:43 Cardiopulmonary Services by Shruthi Sparks pt arrived for walk on room air. At Minute 4 sats decreased to 88%. on room air. Placed patient on 1lpm N C. sats increased to 96% on 1 lpm. Contacted Yuni and set patient up for home O2. Initialized on 04/23/17 11:43 - END OF NOTE - Interpretation Interpretation: The patient ambulated 826 feet over the course of 6 minutes on room air without assistive devices or breaks. Pretesting oxygen saturation was noted to be 94%. With ambulation, the maggie oxygen saturation was 88% on minute 4 of testi ng. 1 L of supplemental oxygen was subsequently applied and the patient was able to complete the remainder of the test while maintaining oxygen saturations within a normal range. - Recommendations Rec ommendations: The patient to utilize 1 L/min of supplemental oxygen with exertion. 04/25/17 1122 <Electronically signed by Michael Segal DO> Date Michael Segal DO CC: Date Dictated: 04/25/17 1120 Date Transcribed: 04/25/17 1120 Tile Erector: Michael Segal DO Signed 18-Mar-2017 Pulmonary Function Report Comp Result: Comments: See Note; NOTES: [facility] Pulmonary Services/Neurology [address] [place] [address] MR#: [id number] Acct: [id number] Name: ADRIANA DILL Rep #: [id number] : 62 From: Ernesto Webster MD Referring Dr: Stanley Richey MD Status: REG CLI Ordering Dr: Date: Location: [facility] Sex: F C Pulmonary Function Report Comp Pulmonary Function Report Comp: COMPLETE P ULMONARY FUNCTION TEST INTERPRETATION Brief HPI: Patient is a 62 year old female, currently under the care of Dr. Richey, who presents to [facility] for complete pulmonary fu nction tests secondary to diagnosis of shortness of breath. Respiratory therapist reports good effort and reproducible results. Interpretation: Forced expiration spirometry shows no large airways obst ructive ventilatory defect with an FEV1 of 64 % predicted. There is no significant bronchodilator response by ATS criteria. Spirograms are of good quality and plateau normally. The respiratory flow volu me loop shows a normal pattern. Lung volumes by body plethysmography show a decreased total lung capacity at 3.74 L, 77 % predicted. All other lung volumes are reduced symmetrically. Lung volume measur ements are consistent with a mild restrictive ventilatory defect. Diffusion capacity by carbon monoxide is severely reduced at 43 % predicted. The airway resistance is normal. Previous pulmonary funct ion tests from 11/26/2011 show a significant change in FVC, FEV1, TLC and DLCO. Impression: Irreversible mild large airways restrictive ventilatory defect with a reduction diffusion capacity out of prop ortion indicating a probable pulmonary vascular disorder. There has been significant worsening in pulmonary function as compared to 2011. 03/18/17 1615 <Electronically signed by Ernesto Soto D> Date Ernesto Webster MD CC: Ernesto Webster MD; Lydia Min DO Date Dictated: 03/18/171609 Date Transcribed: 03/18/171609 Tile Erector: DAVID Signed 05-Mar-2017 Echo Transesophageal (JOÃO) Result: Comments: See Note; NOTES: [facility] Cardiovascular Services [address] [place] [address] Echo Transesophageal (JOÃO) 03/05/17 1009 MR#: [id number] Acct: [id number] Name: ADRIANA MAURICE Rep #: [id number] : 1955 62 From: Stanley Richey MD Attending Dr: Stanley Richey MD Status: REG CLI Ordering Dr: Stanley Richey MD Date: 03/05/17 Location: U Sex: F C Admitted: Reason For Study: Aortic stenosis Medication JOÃO probe passed without difficulty. [id number] gargled and swallowed. Versed 2 mg given slow IVP. Fentanyl 25 mcg given slow IVP. Performed a rapid inj ection of agitated mix of 9 cc saline and 1cc air to assess for atrial septal defect. Left Ventricle Normal size and thickness. The estimated ejection fraction is 65 %. No regional wall motion abnormal ities noted. Right Ventricle Normal size and thickness. The right ventricular wall motion is normal. Atria Normal atrial septum. Bubble contrast study negative for right to left interatrial shunt. No rmal left atrium. Normal right atrium. No RENETTA noted; probably ligated with previous MAZE procedure. Mitral Valve The mitral valve is structurally normal. No prolapse or stenosis seen. Mild (1+) mitral valve insufficiency. Tricuspid Valve Normal tricuspid valve. Mild to moderate (1-2+) tricuspid valve insufficiency. Aortic Valve Bicuspid aortic valve. Fusion of L and R coronary cusps. Moderate aorti c stenosis. Calculated aortic valve area (continuity equation) is 1.9 by planimetry cm2. Mild (1+) eccentric aortic valve insufficiency. Pulmonic Valve Normal pulmonic valve. Vessels Normal aortic root . Normal arch. The pulmonary artery is normal size. Normal pulmonary veins. Interpretation Summary The estimated ejection fraction is 65 %. Bubble contrast study negative for right to left interatrial shunt. No RENETTA noted; probably ligated with previous MAZE procedure. Mild (1+) mitral valve insufficiency. Mild to moderate (1-2+) tricuspid valve insufficiency. Bicuspid aortic valve. Fusion of L and R coronary cusps. Moderate aortic stenosis. Calculated aortic valve area (continuity equation) is 1.9 by planimetry cm2. Mild (1+) eccentric aortic valve insufficiency. Ordering Physician: Stanley Richey Referring Physician: Lydia Copeland M.D. Performed By: Shayna Pillai [facility] signed by: Stanley Richey MD on 03/05/2017 02:45 PM 03/05/17 1445 Date Stanley Richey MD CC: Stanley Richey MD; Lydia Copeland DO Date Dictated: 03/05/17 1009 Date Transcribed: 03/05/17 1445 Tile Erector: Signed 17-Sep-2016 Chest PA and Lateral Result: Comments: See Note; NOTES: [facility] Imaging Services [address] [place] [address] Ver[address] 4d Chest PA and Lateral MR#: [id number] Acct: [id number] Name: ADRIANA DILL Rep #: [id number] : 1955 F 61 From: Daryn Phelan MD PCP: Lydia Copeland DO Status: [facility] CLI Study: Chest PA and Lateral Date of Exam: 09/17/16 Exam# [id number] Ordering Dr: Shekhar Sharpe Y: X-RAY CHEST REASON FOR EXAM: Female, 61 years old. Hypoxia. TECHNIQUE: PA and lateral views of the chest. COMPARISON: Comparison is made with prior study dated December 17, 2014. FINDINGS: Stable elevation of the right hemidiaphragm. Mild increased markings at the lung bases suggestive of scarring. There is no demonstrated pleural abnormality. Normal size hear t. Normal mediastinum and latoya. Normal visualized pulmonary arteries. There is atherosclerotic calcification of the aortic arch with tortuosity. There are diffuse degenerative changes of the visualized thoracic spine. Normal visualized ribs, clavicles, and shoulders. There is no demonstrated abnormality of the visualized soft tissue structures of the upper abdomen. _ RAD/Chest PA and Lateral IMPRESSION: Mild elevation of the right hemidiaphragm. Findings suggest some mild bibasilar scarring. There has been essentially no change since prior karlie dy. Electronically Signed: Daryn Phelan MD at 15:02 EST Tel [phone], Service support [phone], CC: Lydia Sharpe Tile Erector: Signed 26-Aug-2016 Echocardiogram Complete Result: Comments: See Note; NOTES: [facility] Cardiovascular Services [address] [place] [address] Echo Complete 08/26/16 1131 MR#: [id number] Acct: [id number] Name: ADRIANA DILL ep #: [id number] : 1955 61 From: Stanley Richey MD Attending Dr: Stanley Richey MD Status: REG CLI Ordering Dr: Stanley Richey MD Date: 08/26/16 Location: [facility] Sex: F C Admitted: Reason For S tudy: ASHD Procedure This was a 2D Doppler, Color Flow transthoracic echocardiogram. Exam performed in department. Left Ventricle Normal size and thickness. The estimated ejection fraction is 65 %. St age 2 diastolic dysfunction. No regional wall motion abnormalities noted. Right Ventricle Normal size and thickness. Normal systolic function. Atria The left atrium is mildly enlarged. Normal right at rium. Normal atrial septum. Mitral Valve The mitral valve is structurally normal. No prolapse or stenosis seen. Trivial mitral valve insufficiency. Tricuspid Valve Normal tricuspid valve. Trivial tric uspid valve insufficiency. Right ventricular systolic pressure estimated to be 33 mmHg. Aortic Valve Trisinus/trileaflet aortic valve. Moderate focal aortic valve thickening. Mild diffuse aortic valve calcification. Fusion between left and right coronary cusps. Moderate restriction of the aortic valve. Mild to moderate aortic stenosis. Peak aortic valve gradient 35 mmHg. Mean aortic valve gradient 20 mmHg. Trivial aortic valve insufficiency. Pulmonic Valve Normal pulmonic valve. Great Vessels Mildly dilated aortic root. Normal arch. Normal inferior vena cava. Inferior vena cava collapse with sniff . Pericardium/Pleural No pericardial effusion. MMode/2D Measurements & Calculations LVIDd: 3.8 cm IVSd: 1.1 cm LVOT diam: 2.0 cm LVIDs: 2.5 cm LVPWd: 1.1 cm LVOT area: 3.2 cm2 RVDd: 3.4 cm FS: 34.1 % Ao root diam: 4.1 cm LAV(MOD-bp): 50.2 ml LA A4 area: 20.0 cm2 LA dimension: 3.0 cm LAV(MOD-bp) Indexed: 24.5 ml /m2 LAV(MOD-sp2): 42.1 ml LAV(MOD-sp4): 59.2 ml RA A4 area: 12.9 cm2 Doppler Measurements & Calculations MV E m ax brnia: 74.2 cm/sec Lat Peak E' Brina: 11.4 cm/sec Med Peak E' Brina: 5.2 cm/sec MV A max brina: 58.5 cm/sec E/E' lat: 6.5 E/E' med: 14.4 MV E/A: 1.3 Ao V2 max: 297.0 cm/sec LV V1 max: 110.6 cm/sec SV(LVOT): 83.2 ml Ao max P.3 mmHg LV V1 max P.9 mmHg Ao V2 mean: 211.7 cm/sec LV V1 mean P.0 mmHg Ao mean P.8 mm Hg LV V1 mean: 83.0 cm/sec Ao V2 VTI: 68.5 cm LV V1 VTI: 25.7 cm CELESTE(I,D): 1.2 cm2 CELESTE(V,D): 1.2 cm2 PA V2 max: 83.6 cm/ sec PI end-d brina: 124.8 cm/sec TR max brina: 265.0 cm/sec TR max P.3 mmHg Interpretation Summary The estimated ejection fraction is 65 %. Stage 2 diastolic dysfunction. The left atrium is mildly enl arged. Right ventricular systolic pressure estimated to be 33 mmHg. Mild to moderate aortic stenosis. Trivial aortic valve insufficiency. Fusion between left and right coronary cusps. Moderate restricti on of the aortic valve. Mildly dilated aortic root. Compared to echo report dated 08/08/2014, LV function has remained the same, but aortic valve area has decreased from 1.7 to 1.2 mm2. RVSP has remaine d the same. Ordering Physician: Stanley Richey Referring Physician: Lydia Copeland Performed By : Lina Bee RDCS 08/26/16 1555 Date Stanley Richey MD CC: Stanley Richey MD ; Lydia Copeland DO Date Dictated: 08/26/16 1131 Date Transcribed: 08/26/16 1555 Tile Erector: Signed 18-Aug-2016 Bilat Scrn Digital AND CAD Result: Comments: See Note; NOTES: [facility] Imaging Services [address] [place] [address] Verdana 4d Bilat Scrn Digital AND CAD MR#: [id number] Acct: [id number] Name: ADRIANA DILL Rep #: [id number] : 1955 F 61 From: Calixto Main MD PCP: Lydia Copeland DO Status: REG CLI Study: Bilat Scrn Digital AND CAD Date of Exam: 08/18/16 Exam# [id number] Ordering Dr: Jose Alfredo Copeland DO MAMMOGRAPHY - BILATERAL SCREENING REASON FOR EXAM: Female, 61 years old. Routine annual screening examination. PERTINENT HISTORY: Grandmother with breast cancer. TECHNIQUE: Digital examinatio n. Mediolateral oblique (MLO) and craniocaudad (CC) views of both breasts were obtained, along with 3-D tomosynthesis. CAD: CAD was performed on this study. COMPARISON: 11/17/2011 FINDINGS: Breast Density: Heterogeneously dense, which may obscure small masses. There are no dominant masses or suspicious calcifications. Stable punctate calcifications in both breasts consistent with adenosis. No other significant abnormalities are identified. There has been no significant change since the prior study. HPBI/B ilat Scrn Digital AND CAD IMPRESSION: Stable bilateral screening mammogram. Yearly follow-up mammogram recommended. (A) ASSESSMENT CATEGORY: BIRADS Category 2: Cedric gn. A letter regarding these results will be sent to the patient by the facility within 30 days. BR2 Approximately 10% of breast cancers are not detected by mammography. A normal mammogram should not delay biopsy of a clinically suspicious abnormality. [id number] Electronically Signed: Modesto Main MD at 10:13 EST Tel , Service support [phone], CC: Lydia Copeland DO Tile Erector: Signed 29-Jul-2016 L/S Spine Min 4 Views Result: Comments: See Note; NOTES: [facility] Imaging Services [address] [place] [address] Verdana 4d L/S Spine Min 4 Views MR#: [id number] Acct: [id number] Name: ADRIANA DILL p #: [id number] : 1955 F 61 From: Juvenal Zarate MD PCP: Lydia Copeland DO Status: REG CLI Study: L/S Spine Min 4 Views Date of Exam: 07/29/16 Exam# [id number] Ordering Dr: Lydia Copeland STUDY: X-RAY - LUMBAR SPINE REASON FOR EXAM: Female, 61 years old. Low back pain. TECHNIQUE: 5 view(s) of the lumbar spine were obtained. COMPARISON: None FI NDINGS: No acute abnormality. No compression fractures. 5 mm anterolisthesis of L4 on L5. Otherwise normal curvature and alignment. Mild to moderate multilevel degenerative disc changes especially at L4 -L5. Multilevel facet joint degenerative changes. Atherosclerotic calcifications are seen. RAD/L/S Spine Min 4 Views IMPRESSION: Degenerative changes including mild malalignment of L4 on L5. No acute abnormality. Electronically Signed: Juvenal Zarate MD at 17:01 EST , Service support [phone], CC: Lydia Copeland DO Tile Erector: Signed 25-Dec-2014 Emergency Department Summary Result: Comments: See Note; NOTES: [facility] Medical Records Department [address] [place] [address] Emergency Department Summary MR#: [id number] Acct: [id number] Name: ADRIANA DILL Rep #: [id number] : 1955 59 From: Gema Marr PCP: Jeanne Quinones DO Status: DEP ER DATE OF SERVICE: 12/17/2014 HISTORY OF PRESENT ILLNESS: The patient is a 59-year-old female who presents to the Emergency Department with chest pain. She said it started suddenly 2-3 days ago. She called her primary doctor who was unable to get her in. It is worse with deep breathing and when she moves a certain way, no strain that she is aware of. She has an occasional cough, it is nonproductive. No fevers, chills, or sweats. No other associated symptoms. Never had anything like this before. She has a history of AFib, status post ablation. She has a bicuspid valve, bipolar and depression and hypertension. She is followed by Dr. Quinones. She is a nonsmoker. PHYSICAL EXAMINATION: VITAL SIGNS: Afebrile. Vital signs within acceptable limits. She is 93% on room air. GENERAL: She is an overweight female with normal HEENT exam. HEART: Regular rate and rhythm, no murmurs. LUNGS: Clear to auscultation. No respiratory distress. She has exquisite tenderness to palpation along the left anterior sternal border around ____ especially. BACK: Nontender. EXTREMITIES: Nontender with no edema. SKIN: Normal color. NEUROLOGIC: She is alert and oriented. EMERGENCY DEPARTMENT COURSE: Workup because of the patient's history included EKG, which was sinus at 67. CBC and chemistries were normal. Troponin and D-dimer were normal. Chest x-ray showed elevation of the right hemidiaphragm with right atelectasis. At this time, I think this is chest wall pain. She will be given Percoce t for breakthrough pain and incentive spirometer. She was given precautions to look out for shingles rash and seek care right away if she develops that. DISPOSITION: Discharge. DIAGNOSIS: Ches t wall pain. Gema Marr MD C C: Jeanne Quinones DO T: [facility] JOB: [id number] 12/25/14 0056 <Electronically signed by Gema Marr > Date ___ Gema Marr CC: Jeanne Quinones DO Date Dictated: 12/17/14 1248 Date Transcribed: 12/17/14 1248 Tile Erector: Signed 18-Dec-2014 12 Lead Electrocardiogram Result: Comments: See Note; NOTES: [facility] Cardiovascular Services [address] [place] [address] 12 Lead EKG 12/17/14 1129 MR#: [id number] Acct: [id number] Name: KENNETH DILL Rep #: [id number] : 1955 59 From: Sj Rowe MD Attending Dr: Status: DEP ER Ordering Dr: Gema Marr Date: 12/17/14 Location: ED Sex: F C Admitted: Test Reason : DYSRHYTHMIA Bl ood Pressure : / mmHG Vent. Rate : 067 BPM Atrial Rate : 067 BPM P-R Int : 174 ms QRS Dur : 096 ms QT Int : 424 ms P-R-T Axes : 016 -01 007 degrees QTc Int : 448 ms Normal sinus rhythm N ormal ECG Confirmed by SJ ROWE MD ([id number]), telegraph editor MATHIEU SIMON ([id number]) on 12/18/2014 2 :39:37 PM Referred By: OLIVA Confirmed By:SJ ROWE MD 12/18/14 1439 Date Sj Rowe MD CC: Jeanne Quinones DO Date Dictated: 12/17/149 Date Transcribed: 12/17/141128 Tile Erector: Signed 17-Dec-2014 Discharge Instruction Result: Comments: See Note; NOTES: [facility] Medical Records Department [address] [place] [address] Discharge Instruction 12/17/14 1244 MR#: [id number] Acct: [id number] Name: ADRIANA DILL Rep #: [id number] : 1955 59 From: Gema Marr PCP: Jeanne Quinones DO Status: REG ER ED Disposition - Plan for ED Patient: Chief Complaint: Shortness of Breath Instructions : ED Chest Wall Pain, Costochondritis Prescriptions: Oxycodone HCl/Acetaminophen [Percocet 5/325] 1 tablet PO Q6H PRN PRN #10 tablet PRN Reason: Pain Referrals: Jeanne Quinones DO [Primary Care Provide r] - 3-5 Days What to do if you have Problems For any increased pain, shortness of breath, bleeding, nausea or vomiting, chest pain, or any unexpected problems, contact your doctor. Call Doctors R donaldo ) or report to the closest Emergency Room. Call 911 if necessary. 12/17/14 1246 <Electronically signed by Gema Marr > Date Gema Marr Cosigner Signature (If Indicated): Date CC: Jeanne Quinones DO 17-Dec-2014 Chest PA and Lateral Result: Comments: See Note; NOTES: [facility] Imaging Services [address] [place] [address] Radiology Report MR#: [id number] Acct: [id number] Name: ADRIANA DILL Rep #: [id number] : 1955 F 59 From: Daryn Phelan MD PCP: Jeanne Quinones DO Status: REG ER Study: Chest PA and Lateral Date of Exam: 12/17/14 Exam# [id number] Ordering Dr: Gema Marr STUDY: X-RAY CHEST REASON FOR EXAM: Female, 59 years old. Chest pain. TECHNIQUE: PA and lateral views of the chest. COMPARISON: Comparison is made with prior study dated April 14, 2012. FINDINGS: EKG electrodes are seen. There is elevation of the right hemidiaphragm with a mild increased markings at the right lung base suggestive of atelectasis. There is no demonstr ated pleural abnormality. Normal size heart. Normal mediastinum and latoya. Normal visualized pulmonary arteries. There is atherosclerotic calcification of the aortic arch with tortuosity. There are diffuse degenerative changes of the visualized thoracic spine. Increased kyphosis. Normal visualized ribs, clavicles, and shoulders. There is no demonstrated abnormality of the visualized soft tissu e structures of the upper abdomen. IMPRESSION: There is elevation of the right hemidiaphragm with linear atelectasis at the right lung base. Electronically Si gned: Daryn Phelan MD at 12:26 EDT Tel [phone], Service support [phone], RAD/Chest PA and Lateral IMPRESSION: There is elevation of the right hemidiaphragm with linear atelectasis at the right lung base. Electronically Signed: Daryn Phelan MD at 12:26 EDT Tel [phone], Service support [phone], Fax CC: Gema Marr; Jeanne Quinones DO Tile Erector: Signed 08-Aug-2014 Echocardiogram Complete Result: Comments: See Note; NOTES: [facility] Cardiovascular Services [address] [place] [address] Echo Complete 08/08/14 1245 MR#: [id number] Acct: [id number] Name: REINIER DILL Rep #: [id number] : 1955 59 From: Stanley Richey MD Attending Dr: Stanley Richey MD Status: REG CLI Ordering Dr: Stanley Richey MD Date: 08/08/14 Location: [facility] Sex: F C Admitted: Procedure This was a 2D Doppler, Color Flow transthoracic echocardiogram. The exam was of adequate technical quality. The study was technically difficult. Contrast injection was performed. Exam perfor med in department. Left Ventricle Normal size and thickness. The estimated ejection fraction is 65 %. No regional wall motion abnormalities noted. Right Ventricle Normal size and thickness. Norm al systolic function. Atria Normal left atrium. Normal right atrium. Normal atrial septum. Mitral Valve Bileaflet diffuse mitral valve thickening. Mild mitral annular calcification extending into the posterior leaflet. There is no mitral valve stenosis. Tricuspid Valve Normal tricuspid valve. Trivial tricuspid valve insufficiency. Right ventricular systolic pressure estimated to be 32 mmH g. Aortic Valve Trisinus/trileaflet aortic valve. Moderate diffuse aortic valve thickening. Moderate diffuse aortic valve calcification. Moderate restriction of the aortic valve. Fusion of the rig ht and left coronary cusps essentially creating a functional bicuspid aortic valve. Mild aortic stenosis. Peak aortic valve gradient 27 mmHg. Mean aortic valve gradient 14 mmHg. Pulmonic Valve Nor mal pulmonic valve. Great Vessels Normal aortic root. Mild atherosclerosis of the aortic arch. Normal inferior vena cava. Inferior vena cava collapse with sniff. Pericardium/Pleural No pericardi al effusion. Medication Performed a rapid injection of agitated mix of 9 cc saline and 1cc air to assess for atrial septal defect. Definity0.2ml given slow IV push to enhance endocardial definition . LVIDd: 4.1 cm IVSd: 1.1 cm LVOT diam: 2.2 cm Ao root diam: 3.4 cm LVIDs: 2.7 cm LVPWd: 1.3 cm LVOT area: 3.8 cm2 Ao root area: 9.1 cm2 RVDd: 3.7 cm FS: 33.3 % LA dimension: 3.9 cm LA A4 area: 18.4 cm2 RA A4 area: 14.1 cm2 MV E max brina: Lat Peak E' Brina: Med Peak E' Brina: Ao V2 max: 259.7 cm/sec 85.6 cm/s ec 13.3 cm/sec 7.4 cm/sec Ao max P.0 mmHg MV A max brina: Ao V2 mean: 51.7 cm/sec 175.5 cm/sec MV E/A: 1.7 Ao mean P.0 mmHg Ao V2 VTI: 46.1 cm CELESTE(I,D): 2.0 cm2 CELESTE(V,D): 1.7 cm2 ____ LV V1 max: 117.7 cm/sec SV(LVOT): 91.4 ml PA V2 max: 97.9 cm/sec TR max brina: LV V1 max P.5 mmHg PA max P.8 mmHg 261.2 cm/sec LV V1 mean P.2 mmHg TR max P.3 mmHg LV V1 mean: 85.9 cm/sec LV V1 VTI: 23.8 cm E/E' lat: 6. 4 E/E' med: 11.6 Interpretation Summary The estimated ejection fraction is 65 %. Right ventricular systolic pressure estimated to be 32 mmHg. Fusion of the right and left coronary cusps essentially creating a functional bicuspid aortic valve. Mild aortic stenosis. Compared to echo report dated 08/17/2012, no appreciable changes noted except that aortic valve gradient appears to have improved slightly, and there was no aortic insufficiency noted on todays study. RVSP is the similar to previous study. Ordering Physician: Stanley Richey Performed By: PIETRO Jiménez 08/08/14 1607 Date Stanley Richey MD CC: Stanley Richey MD; Jeanne Quinones DO Date Dictated: 08/08/14 1245 Date Transcribed: 08/08/14 1607 Tile Erector: Signed Family History Unknown Family Member Name Dates Details Family Members In General Comments: Breast Ca Status: Active Father Comments: tri was bicuspid valve-- replaced Status: Active Maternal Grandmother Comments: dementia Status: Active Mother Comments: colon ca- diagnosed age 72 Status: Active Paternal Grandmother Comments: Berast Ca Status: Active Social History Name Dates Details Caffeine Use Comments: tea here and there Status: Active Most Recent Primary Occupation Comments: 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 Status: Active Smoking Status Name Dates Details Former smoker Vital Signs Date Test Result Details [id number] Pulse 58 /min Comments: Pattern: Regular Respiration Rate 18 /min Comments: Pattern: Unlabored O2 SAT 98 % Comments: Room air BP Systolic 138 mm[Hg] Comments: Patient Position: Sitting; Cuff Location: Left Arm; Cuff Size: Large BP Diastolic 68 mm[Hg] Comments: Patient Position: Sitting; Cuff Location: Left Arm; Cuff Size: Large Weight 209 lb Height 64.5 in Body Mass Index Calculated 35.32 kg/m2 Body Surface Area Calculated 2 m2 [id number] Pulse 65 /min Comments: Pattern: Regular Respiration Rate 18 /min Comments: Pattern: Unlabored O2 SAT 92 % Comments: Room air BP Systolic 136 mm[Hg] Comments: Patient Position: Sitting; Cuff Location: Left Arm; Cuff Size: Large BP Diastolic 82 mm[Hg] Comments: Patient Position: Sitting; Cuff Location: Left Arm; Cuff Size: Large Weight 206 lb Height 64.5 in Body Mass Index Calculated 34.81 kg/m2 Body Surface Area Calculated 1.99 m2 :38 Temperature 98.2 f Pulse 78 /min Comments: Pattern: Regular Respiration Rate 17 /min Comments: Pattern: Unlabored O2 SAT 94 % Comments: Room air BP Systolic 122 mm[Hg] Comments: Patient Position: Sitting; Cuff Location: Left Arm; Cuff Size: Standard BP Diastolic 82 mm[Hg] Comments: Patient Position: Sitting; Cuff Location: Left Arm; Cuff Size: Standard Weight 228 lb Height 64.5 in Body Mass Index Calculated 38.53 kg/m2 Body Surface Area Calculated 2.08 m2 :47 Comments: SPO2 on 2 liters o2 97 Temperature 98.1 f Pulse 69 /min Comments: Pattern: Regular Respiration Rate 16 /min Comments: Pattern: Unlabored O2 SAT 88 % Comments: Room air BP Systolic 116 mm[Hg] Comments: Patient Position: Sitting; Cuff Location: Left Arm; Cuff Size: Standard BP Diastolic 80 mm[Hg] Comments: Patient Position: Sitting; Cuff Location: Left Arm; Cuff Size: Standard Weight 227 lb Height 64.5 in Body Mass Index Calculated 38.36 kg/m2 Body Surface Area Calculated 2.08 m2 :27 Temperature 96.8 f Comments: Method: Tympanic Pulse 62 /min Comments: Pattern: Regular Respiration Rate 18 /min Comments: Pattern: Unlabored O2 SAT 93 % Comments: Room air BP Systolic 122 mm[Hg] Comments: Patient Position: Sitting; Cuff Location: Left Arm; Cuff Size: Standard BP Diastolic 64 mm[Hg] Comments: Patient Position: Sitting; Cuff Location: Left Arm; Cuff Size: Standard Weight 222.5 lb Height 64.5 in Body Mass Index Calculated 37.6 kg/m2 Body Surface Area Calculated 2.06 m2 :49 O2 SAT 97 % Comments: Room air :49 O2 SAT 90 % Comments: Room air :40 Temperature 97 f Comments: Method: Tympanic Pulse 62 /min Comments: Pattern: Regular Respiration Rate 18 /min Comments: Pattern: Unlabored O2 SAT 93 % Comments: Room air BP Systolic 138 mm[Hg] Comments: Patient Position: Sitting; Cuff Location: Left Arm; Cuff Size: Standard BP Diastolic 78 mm[Hg] Comments: Patient Position: Sitting; Cuff Location: Left Arm; Cuff Size: Standard Weight 232.5 lb Height 64.5 in Body Mass Index Calculated 39.29 kg/m2 Body Surface Area Calculated 2.1 m2 :52 Pulse 62 /min Comments: Pattern: Regular Respiration Rate 18 /min Comments: Pattern: Unlabored O2 SAT 96 % Comments: Room air BP Systolic 142 mm[Hg] Comments: Patient Position: Sitting; Cuff Location: Left Arm; Cuff Size: Large BP Diastolic 98 mm[Hg] Comments: Patient Position: Sitting; Cuff Location: Left Arm; Cuff Size: Large Weight 232.5 lb Height 64.5 in Body Mass Index Calculated 39.29 kg/m2 Body Surface Area Calculated 2.1 m2 :10 Temperature 97.6 f Comments: Method: Tympanic Pulse 62 /min Comments: Pattern: Regular Respiration Rate 18 /min Comments: Pattern: Unlabored O2 SAT 92 % Comments: Room air BP Systolic 124 mm[Hg] Comments: Patient Position: Sitting; Cuff Location: Left Arm; Cuff Size: Standard BP Diastolic 66 mm[Hg] Comments: Patient Position: Sitting; Cuff Location: Left Arm; Cuff Size: Standard Weight 231 lb Height 64.5 in Body Mass Index Calculated 39.04 kg/m2 Body Surface Area Calculated 2.09 m2 :22 Temperature 100 f Comments: Method: Oral Pulse 76 /min Comments: Pattern: Regular O2 SAT 96 % Comments: Room air BP Systolic 132 mm[Hg] Comments: Patient Position: Sitting; Cuff Location: Left Arm; Cuff Size: Standard BP Diastolic 80 mm[Hg] Comments: Patient Position: Sitting; Cuff Location: Left Arm; Cuff Size: Standard Weight 214 lb Height 64.5 in Body Mass Index Calculated 36.17 kg/m2 Body Surface Area Calculated 2.02 m2 :45 Temperature 97.6 f Comments: Method: Oral Pulse 72 /min Comments: Pattern: Regular Respiration Rate 18 /min Comments: Pattern: Unlabored BP Systolic 142 mm[Hg] Comments: Patient Position: Sitting; Cuff Location: Left Arm; Cuff Size: Standard BP Diastolic 84 mm[Hg] Comments: Patient Position: Sitting; Cuff Location: Left Arm; Cuff Size: Standard Weight 214 lb Height 64.5 in Body Mass Index Calculated 36.17 kg/m2 Body Surface Area Calculated 2.02 m2 :18 Temperature 98.7 f Comments: Method: Oral Pulse 68 /min Comments: Pattern: Regular Respiration Rate 18 /min Comments: Pattern: Unlabored BP Systolic 128 mm[Hg] Comments: Patient Position: Sitting; Cuff Location: Left Arm; Cuff Size: Standard BP Diastolic 80 mm[Hg] Comments: Patient Position: Sitting; Cuff Location: Left Arm; Cuff Size: Standard Weight 214 lb Height 64.5 in Body Mass Index Calculated 36.17 kg/m2 Body Surface Area Calculated 2.02 m2 :12 Temperature 98 f Comments: Method: Oral Pulse 74 /min Comments: Pattern: Regular Respiration Rate 18 /min O2 SAT 93 % Comments: Room air BP Systolic 132 mm[Hg] Comments: Patient Position: Sitting; Cuff Location: Left Arm; Cuff Size: Standard BP Diastolic 78 mm[Hg] Comments: Patient Position: Sitting; Cuff Location: Left Arm; Cuff Size: Standard Weight 214 lb Height 64.5 in Body Mass Index Calculated 36.17 kg/m2 Body Surface Area Calculated 2.02 m2 :11 Temperature 96 f Pulse 64 /min Comments: Pattern: Regular Respiration Rate 18 /min Comments: Pattern: Unlabored BP Systolic 128 mm[Hg] Comments: Patient Position: Sitting; Cuff Location: Left Arm; Cuff Size: Large BP Diastolic 80 mm[Hg] Comments: Patient Position: Sitting; Cuff Location: Left Arm; Cuff Size: Large Weight 214 lb Height 64.5 in Body Mass Index Calculated 36.17 kg/m2 Body Surface Area Calculated 2.02 m2 :49 Temperature 98.2 f Comments: Method: Oral Pulse 72 /min Comments: Pattern: Regular Respiration Rate 16 /min Comments: Pattern: Unlabored BP Systolic 126 mm[Hg] Comments: Patient Position: Sitting; Cuff Location: Left Arm; Cuff Size: Standard BP Diastolic 88 mm[Hg] Comments: Patient Position: Sitting; Cuff Location: Left Arm; Cuff Size: Standard Weight 206 lb Height 64.5 in Body Mass Index Calculated 34.81 kg/m2 Body Surface Area Calculated 1.99 m2 :41 Comments: rechecked bp 140/90 Temperature 96.8 f Pulse 60 /min Comments: Pattern: Regular Respiration Rate 16 /min Comments: Pattern: Unlabored BP Systolic 142 mm[Hg] Comments: Patient Position: Sitting; Cuff Location: Left Arm; Cuff Size: Large BP Diastolic 92 mm[Hg] Comments: Patient Position: Sitting; Cuff Location: Left Arm; Cuff Size: Large Weight 206 lb Height 64.5 in Body Mass Index Calculated 34.81 kg/m2 Body Surface Area Calculated 1.99 m2 :52 Temperature 97.7 f Comments: Method: Oral Pulse 72 /min Comments: Pattern: Regular Respiration Rate 16 /min Comments: Pattern: Unlabored BP Systolic 134 mm[Hg] Comments: Patient Position: Sitting; Cuff Location: Left Arm; Cuff Size: Standard BP Diastolic 76 mm[Hg] Comments: Patient Position: Sitting; Cuff Location: Left Arm; Cuff Size: Standard Weight 213.9 lb Height 64.5 in Body Mass Index Calculated 36.15 kg/m2 Body Surface Area Calculated 2.02 m2 Results Date Description Value Details :40 Basic Metabolic Profile (BMP) Comments: [facility] [address] [place], [address] GAP 8 (Normal) Range: 5-15 CO2 31.0 mmol/L (Normal) Range: 21.0-32.0 CL 103 mmol/L (Normal) Range: 98-107 K 3.9 mmol/L (Normal) Range: 3.5-5.1 NA 142 mmol/L (Normal) Range: 136-145 CA 9.2 mg/dL (Normal) Range: 8.5-10.1 BUN/CRE 31.4 {RATIO} (Abnormal) Range: 10-20 EST GFR - AA 94 mL/min (Normal) Comments: GFR Calc EST GFR 77 mL/min (Normal) Comments: Non- GFR Calc CREAT,SERUM 0.80 mg/dL (Normal) Range: 0.55-1.02 Comments: The validity of the calculated GFR AND GFRAA in patients over70 years has not been determined. Clinical correlation isessential. BUN 25 mg/dL (Abnormal) Range: 7-18 GLU 83 mg/dL (Normal) Range: 74-106 Comments: Please note revised GLUCOSE reference range oshvsvcwm28/02/2018. 47-Skh-088923:40 CBC W/Diff, Automated Comments: [facility] [address] [place], [place], [id number] Absolute Lymph 2.08 {X10_3/ul} (Normal) Range: 0.83-4.51 Absolute Neut 5.2 {X10_3/uL} (Normal) Range: 2.0-7.7 IM GRAN % 0.300 % (Normal) Range: 0.0-0.9 Comments: IG% - Immature Granulocytes (promyelocytes, myelocytes andmetamyelocytes) > 1% indicates that a LEFT SHIFT is Present. BASO% 0.3 % (Normal) Range: 0-1 EO% 0.8 % (Normal) Range: 0-5 MONO% 6.0 % (Normal) Range: 0-10 LY% 26.4 % (Normal) Range: 19-41 NEUT% 66.2 % (Normal) Range: 47-70 MPV 9.6 fL (Normal) Range: 6.2-12.0 PLT 209 K/mm3 (Normal) Range: 150-450 RDW SD 41.5 fL (Normal) Range: 35.1-43.9 RDW CV 12.7 % (Normal) Range: 11.6-14.6 MCHC 32.8 {g/gl} (Normal) Range: 32-36 MCH 30.3 pg (Normal) Range: 27.0-32.0 MCV 92.3 fL (Normal) Range: 81-99 HCT 39.3 % (Normal) Range: 37-47 HGB 12.9 g/dL (Normal) Range: 12.0-15.0 RBC 4.26 {M/mm3} (Normal) Range: 4.2-5.4 WBC 7.9 K/mm3 (Normal) Range: 4.4-11.0 38-Iqn-173959:40 Microalb:Creat Ratio,Random UR Comments: [facility] [address] [place], [address] MALB:CREAT 7.6 {mg/g_CRE} (Normal) MICROALBUMIN,UR 5.1 mg/L (Normal) UR CREAT 66.90 mg/dL (Normal) 34-Ruh-[id number] NMR Lipoprofile Comments: [facility] (refer to report for specific site)refer to report for address and phone number LP-IR SCORE 34 (Normal) Comments: INSULIN RESISTANCE MARKER <--Insulin Sensitive Insulin Resistant--> Percentile in Reference PopulationInsulin Resistance ScoreLP-IR Score Low 25th 50th 75th High <27 27 45 63 >63LP-IR Score is inaccurate if patient is non-fasting.The LP-IR score is a laboratory developed index that hasbeen associated with insulin resistance and diabetes riskand should be used as one component of a physician'sclinical assessment. The LP-IR score listed above has notbeen cleared by the [place] Food and Drug Administration.Performed at: [address] [id number] Director: Federico Barcenas MD, Phone: [phone] INS RES/DIAB RK . (Normal) LDL SIZE 22.0 nm (Normal) Comments: INTERPRETATIVE INFORMATION PARTICLE CONCENTRATION AND SIZE <--Lower CVD Risk Highe r CVD Risk--> LDL AND HDL PARTICLES Percentile in Reference Population HDL-P (total) High 75th 50th 25th Low >34.9 34.9 30.5 26.7 <26.7 Small LDL-P Low 25th 50th 75th High <117 117 527 839 >839 LDL Size <-Large (Pattern A)-> <-Small (Pattern B)-> 23.0 20.6 20.5 19.0 Small LDL-P and LDL Size are associated with CVD risk, butnot after LDL-P is taken into account .These assays were developed and their performancecharacteristics determined by [employer]. These assayshave not been cleared by the US Food and DrugAdministration. The clinical utility of these laboratoryvalues have not been fully established. SMALL LDL-P 298 nmol/L (Normal) HDL-P TOTAL 45.7 umol/L (Normal) LD HD PARTICLES . (Normal) LDL-P 1229 nmol/L (Abnormal) Comments: Low < 1000 Moderate 1000 - 1299 Borderline-High 1300 - 1599 High 1600 - 2000 Very High > 2000 TRIGLYCERIDES 77 mg/dL (Normal) Range: 0-149 HDL-C 69 mg/dL (Normal) LDL-C 123 mg/dL (Abnormal) Range: 0-99 Comments: Optimal < 100 Above optimal 100 - 129 Borderline 130 - 159 High 160 - 189 Very high > 189LDL-C is inaccurate if patient is non-fasting. CHOLESTEROL TOT 207 mg/dL (Abnormal) Range: 100-199 LIPIDS . (Normal) [id number]-Lgh-[id number]:40 Thyroid Stim Hormone (TSH) Comments: [facility] [address] [facility] [place], [place], [id number] TSH 1.50 {uIU/mL} (Normal) Range: 0.358-3.74 06-Ycz-928957:40 Urinalysis, Complete Comments: How was Urine Obtained? [facility] [address] [facility] [place], [place], [id number] MUCUS, URINE 0 SEEN {/hpf} (Normal) BACTERIA 0 SEEN {/hpf} (Normal) SQUAM EPI 0 SEEN {/hpf} (Normal) Range: 5-10 RBC-UA 0 SEEN {/hpf} (Normal) Range: 0-5 WBC 0 SEEN {/hpf} (Normal) Range: 0-5 LEUK ESTERASE Negative /ul (Normal) OCCULT BLOOD-UR 10 /ul (Abnormal) NITRITE UR Negative (Normal) UROBILI Normal mg/dL (Normal) PROT DIPSTX Negative mg/dL (Normal) pH UR 6.5 (Normal) Range: 5.0 - 8.0 SP.GR. DIPSTX 1.010 (Normal) Range: 1.002-1.030 KETONE UR Negative mg/dL (Normal) BILIRUBIN URINE Negative mg/dL (Normal) GLUCOSE, UR Normal mg/dL (Normal) CLARITY Clear (Normal) COLOR Yellow (Normal) [id number]:40 Vitamin D,25 Hydroxy Comments: [facility] [address] [place], [address] Vitamin D 25-OH 24.2 ng/mL (Abnormal) Range: 29.95-100.01 Comments: Vitamin D 25(OH) Status Range Deficiency <20 ng/mL (50nmol/L) Insuffciency 20 - 30 ng/mL (50 - 75 nmol/L) Sufficiency 30 - 100 ng/mL (75 - 250 nmol/L) Toxicity >100 ng/mL (>250 nmol/L) 21-Apr-20188:27 Lipid Profile Comments: [facility] [address] [place], [address] VLDL 9 mg/dL (Normal) Range: 5-40 LDL 111 mg/dL (Normal) Range: 0-130 HDL 68 mg/dL (Normal) Comments: The drugs N-Acetylcysteine and Metamizole may falselydepress this assay. Reference Range HDL <40 mg/dL Low HDL Cholesterol HDL >or= 60 mg/dL High HDL Cholesterol TRIG 46 mg/dL (Normal) Comments: The drugs N-Acetylcysteine and Metamizole may falselydepress this assay.Serum Triglycerides Reference Interval Normal <150 mg/dL Borderline high 150 - 199 mg/dL High 200 - 499 mg/dL Very High > or = 500 mg/dL CHOL 188 mg/dL (Normal) Comments: <200 mg/dL Desirable 200-240 mg/dL Borderline >240 mg/dL High Risk 21-Apr-20188:27 Liver Profile Comments: [facility] [address] [place], [address] D BILI 0.12 mg/dL (Normal) Range: 0.00-0.30 T BILI 0.30 mg/dL (Normal) Range: 0.20-1.00 ALT 14 U/L (Normal) Range: 13-56 ALK P 89 U/L (Normal) Range: 45-117 AST 13 U/L (Abnormal) Range: 15-37 GLOB 3.4 g/dL (Normal) Range: 2.2-4.2 ALB 3.6 g/dL (Normal) Range: 3.2-5.0 T PROT 7.0 g/dL (Normal) Range: 6.4-8.2 17-Uso-[id number]:16 Lipid Profile Comments: Order Date: 08/20/17Order Info: [id number] - *Hepatic Function PanelOrder Info: [id number] - *Lipid Profile CC PCPComments: 12 hours fasting, may have water.[facility] [address] [place], [place], [id number] VLDL 19 mg/dL (Normal) Range: 5-40 LDL 102 mg/dL (Normal) Range: 0-130 HDL 58 mg/dL (Normal) Comments: The drugs N-Acetylcysteine and Metamizole may falselydepress this assay. Reference Range HDL <40 mg/dL Low HDL Cholesterol HDL >or= 60 mg/dL High HDL Cholesterol TRIG 95 mg/dL (Normal) Comments: The drugs N-Acetylcysteine and Metamizole may falselydepress this assay.Serum Triglycerides Reference Interval Normal <150 mg/dL Borderline high 150 - 199 mg/dL High 200 - 499 mg/dL Very High > or = 500 mg/dL CHOL 179 mg/dL (Normal) Comments: <200 mg/dL Desirable 200-240 mg/dL Borderline >240 mg/dL High Risk [id number]-[id number]:16 Liver Profile Comments: Order Date: 08/20/17Order Info: [id number] - *Hepatic Function PanelOrder Info: [id number] - *Lipid Profile CC PCPComments: 12 hours fasting, may have water.[facility] [address] [place], [place], [address] D BILI 0.08 mg/dL (Normal) Range: 0.00-0.30 T BILI 0.40 mg/dL (Normal) Range: 0.20-1.00 ALT 17 U/L (Normal) Range: 12-78 ALK P 87 U/L (Normal) Range: 45-117 AST 13 U/L (Abnormal) Range: 15-37 GLOB 3.5 g/dL (Normal) Range: 2.2-4.2 ALB 3.8 g/dL (Normal) Range: 3.4-5.0 Comments: Please note revised Albumin AND Globulin reference rangeeffective 2017. T PROT 7.3 g/dL (Normal) Range: 6.4-8.2 :27 Lipid Profile Comments: Order Date: 05/27/17Order Info: [id number] - *Hepatic Function PanelOrder Date: 08/26/16Order Info: [id number] - *Lipid Profile CC PCPComments: 12 hours fasting, may have water.[facility] [id number] [place], [place], [address] VLDL 26 mg/dL (Normal) Range: 5-40 LDL 156 mg/dL (Abnormal) Range: 0-130 HDL 64 mg/dL (Normal) Comments: The drugs N-Acetylcysteine and Metamizole may falselydepress this assay. Reference Range HDL <40 mg/dL Low HDL Cholesterol HDL >or= 60 mg/dL High HDL Cholesterol TRIG 129 mg/dL (Normal) Comments: The drugs N-Acetylcysteine and Metamizole may falselydepress this assay.Serum Triglycerides Reference Interval Normal <150 mg/dL Borderline high 150 - 199 mg/dL High 200 - 499 mg/dL Very High > or = 500 mg/dL CHOL 246 mg/dL (Abnormal) Comments: <200 mg/dL Desirable 200-240 mg/dL Borderline >240 mg/dL High Risk :27 Liver Profile Comments: Order Date: 05/27/17Order Info: [id number] - *Hepatic Function PanelOrder Date: 08/26/16Order Info: [id number] - *Lipid Profile CC PCPComments: 12 hours fasting, may have water.[facility] [address] [place], [place], [address] D BILI 0.09 mg/dL (Normal) Range: 0.00-0.30 T BILI 0.40 mg/dL (Normal) Range: 0.20-1.00 ALT 16 U/L (Normal) Range: 12-78 ALK P 89 U/L (Normal) Range: 45-117 AST 16 U/L (Normal) Range: 15-37 GLOB 3.5 g/dL (Normal) Range: 2.2-4.2 ALB 3.9 g/dL (Normal) Range: 3.4-5.0 Comments: Please note revised Albumin AND Globulin reference rangeeffective 2017. T PROT 7.4 g/dL (Normal) Range: 6.4-8.2 13-Qvo-[id number]:06 Blood Gas Specimen Type Comments: [facility] [place] [address] [place], [place] [address] BLD GAS TYPE ART (Normal) :06 PO2 I-STAT 55 {mmHG} (Abnormal) Comments: [place] [address] [place] [address] Range: 75-100 33-Nzj-134542:06 SO2 ISTAT 86 % (Abnormal) Comments: [place] [address] [place] [address] Range: 95-99 82-Yce-574888:50 Blood Gas Specimen Type Comments: [place] [address] [place], [place] [address] BLD GAS TYPE ALAINA (Normal) 80-Epu-190524:50 VBG PO2 I-STAT 31 {mmHg} (Normal) Comments: [place] [address] [place] [address] Range: 25-40 19-Gae-217093:50 VBG SO2 ISTAT 55 % (Normal) Comments: [place] [address] [place], [place] [address] Range: 50-70 61-Gkp-050580:47 Blood Gas Specimen Type Comments: [place] [address] [place] [address] BLD GAS TYPE ALAINA (Normal) 56-Wda-489800:47 VBG PO2 I-STAT 32 {mmHg} (Normal) Comments: [place] [address] [place] [address] Range: 25-40 :47 VBG SO2 ISTAT 58 % (Normal) Comments: [place] [address] [place] [id number] Range: 50-70 :53 Basic Metabolic Profile (BMP) Comments: Order Date: 02/04/17Order Info: [id number] - *BMPOrder Date: 02/04/17Order Info: [id number] - *Lipid Profile CC PCPComments: 12 hours fasting, may have water.[place] [address] [place], [id number] GAP 4 (Abnormal) Range: 5-15 CO2 34.0 mmol/L (Abnormal) Range: 21.0-32.0 CL 105 mmol/L (Normal) Range: 98-107 K 4.1 mmol/L (Normal) Range: 3.5-5.1 NA 143 mmol/L (Normal) Range: 136-145 CA 8.8 mg/dL (Normal) Range: 8.5-10.1 BUN/CRE 21.7 {RATIO} (Abnormal) Range: 10-20 EST GFR - AA 103 mL/min (Normal) Comments: GFR Calc EST GFR 85 mL/min (Normal) Comments: Non- GFR Calc CREAT,SERUM 0.74 mg/dL (Normal) Range: 0.55-1.02 Comments: The validity of the calculated GFR AND GFRAA in patients over70 years has not been determined. Clinical correlation isessential. BUN 16 mg/dL (Normal) Range: 7-18 GLU 85 mg/dL (Normal) Range: 70-110 :53 CBC W/Diff, Automated Comments: Order Date: 02/04/17Order Info: [id number] - *CBC with DifferentialComments: Reason:[facility] [address] [place], [id number] Absolute Lymph 1.52 {X10_3/ul} (Normal) Range: 0.83-4.51 Absolute Neut 5.9 {X10_3/uL} (Normal) Range: 2.0-7.7 IM GRAN % 0.300 % (Normal) Range: 0.0-0.9 Comments: IG% - Immature Granulocytes (promyelocytes, myelocytes andmetamyelocytes) > 1% indicates that a LEFT SHIFT is Present. BASO% 0.3 % (Normal) Range: 0-1 EO% 1.1 % (Normal) Range: 0-5 MONO% 4.9 % (Normal) Range: 0-10 LY% 19.2 % (Normal) Range: 19-41 NEUT% 74.2 % (Abnormal) Range: 47-70 MPV 9.7 fL (Normal) Range: 6.2-12.0 PLT 178 K/mm3 (Normal) Range: 150-450 RDW SD 44.3 fL (Abnormal) Range: 35.1-43.9 RDW CV 13.6 % (Normal) Range: 11.6-14.6 MCHC 32.1 {g/gl} (Normal) Range: 32-36 MCH 28.6 pg (Normal) Range: 27.0-32.0 MCV 89.3 fL (Normal) Range: 81-99 HCT 41.8 % (Normal) Range: 37-47 HGB 13.4 g/dL (Normal) Range: 12.0-15.0 RBC 4.68 {M/mm3} (Normal) Range: 4.2-5.4 WBC 7.9 K/mm3 (Normal) Range: 4.4-11.0 18-Feb-20178:53 Lipid Profile Comments: Order Date: 02/04/17Order Info: [id number] - *BMPOrder Date: 02/04/17Order Info: [id number] - *Lipid Profile CC PCPComments: 12 hours fasting, may have water.[facility] [address] [place], [place], [id number] VLDL 32 mg/dL (Normal) Range: 5-40 LDL 165 mg/dL (Abnormal) Range: 0-130 HDL 54 mg/dL (Normal) Comments: The drugs N-Acetylcysteine and Metamizole may falsely deressthis assay. Reference Range HDL <40 mg/dL Low HDL Cholesterol HDL >or= 60 mg/dL High HDL Cholesterol TRIG 159 mg/dL (Normal) Comments: The drugs N-Acetylcysteine and Metamizole may falsely deressthis assay.Serum Triglycerides Reference Interval Normal <150 mg/dL Borderline high 150 - 199 mg/dL High 200 - 499 mg/dL Very High > or = 500 mg/dL CHOL 251 mg/dL (Abnormal) Comments: <200 mg/dL Desirable 200-240 mg/dL Borderline >240 mg/dL High Risk 18-Feb-20178:53 Prothrombin Time w/INR Comments: Order Date: 02/04/17Order Info: [id number] - [facility] [address] [place], [place], [address] INR 1.1 (Normal) PROTIME 13.3 s (Normal) Range: 11.7-14.9 12-Bol-629479:09 Rapid Flu (23290 x 2) Influenza A Ag neg and b (Normal) 29-Qhg-09079:28 Lipid Profile Comments: [facility] [address] [place], [place], [address] VLDL 33 mg/dL (Normal) Range: 5-40 LDL 111 mg/dL (Normal) Range: 0-130 HDL 57 mg/dL (Normal) Comments: Reference Range HDL <40 mg/dL Low HDL Cholesterol HDL >or= 60 mg/dL High HDL Cholesterol TRIG 163 mg/dL (Normal) Comments: Serum Triglycerides Reference Interval Normal <150 mg/dL Borderline high 150 - 199 mg/dL High 200 - 499 mg/dL Very High > or = 500 mg/dL CHOL 201 mg/dL (Abnormal) Comments: <200 mg/dL Desirable 200-240 mg/dL Borderline >240 mg/dL High Risk :28 Liver Profile Comments: [facility] [address] [place], [place], [address] D BILI 0.10 mg/dL (Normal) Range: 0.00-0.30 T BILI 0.30 mg/dL (Normal) Range: 0.20-1.00 ALT 24 U/L (Normal) Range: 12-78 ALK P 83 U/L (Normal) Range: 50-136 AST 13 U/L (Abnormal) Range: 15-37 GLOB 3.1 g/dL (Normal) Range: 2.3-3.5 ALB 3.7 g/dL (Normal) Range: 3.4-5.0 T PROT 6.8 g/dL (Normal) Range: 6.4-8.2 49-Wxv-828284:25 Basic Metabolic Profile (BMP) Comments: 'TROP' Serial specimen #1, #2, #3, or #4: 1Test performed at:[facility] [address] [place] [address] GAP 4 (Abnormal) Range: 5-15 CO2 31.0 mmol/L (Normal) Range: 21.0-32.0 CL 106 mmol/L (Normal) Range: 98-107 K 3.9 mmol/L (Normal) Range: 3.5-5.1 NA 141 mmol/L (Normal) Range: 136-145 CA 8.7 mg/dL (Normal) Range: 8.5-10.1 BUN/CRE 20.0 {RATIO} (Normal) Range: 10-20 Estimated CRCL 65.38 ml/min (Normal) EST GFR - AA 95 mL/min (Normal) EST GFR 78 mL/min (Normal) CREAT,SERUM 0.8 mg/dL (Normal) Range: 0.6-1.0 BUN 16 mg/dL (Normal) Range: 7-18 GLU 121 mg/dL (Abnormal) Range: 70-110 Comments: Fasting Glucose result from 110 to <126 mg/dLsuggests IMPAIRED HOMEOSTASIS per A.D.A. criteria. [id number]:25 CBC W/Diff, Automated Comments: Test performed at:[facility] [address] [facility] [place] [address] Absolute Lymph 1.58 {X10_3/ul} (Normal) Range: 0.83-4.51 Absolute Neut 6.4 {X10_3/uL} (Normal) Range: 2.0-7.7 IM GRAN % 0.400 % (Normal) Range: 0.0-0.9 Comments: IG% - Immature Granulocytes (promyelocytes, myelocytes andmetamyelocytes) > 1% indicates that a LEFT SHIFT is Present. BASO% 0.2 % (Normal) Range: 0-1 EO% 1.2 % (Normal) Range: 0-5 MONO% 4.4 % (Normal) Range: 0-10 LY% 18.7 % (Abnormal) Range: 19-41 NEUT% 75.1 % (Abnormal) Range: 47-70 MPV 9.8 fL (Normal) Range: 6.2-12.0 PLT 177 K/mm3 (Normal) Range: 150-450 RDW SD 42.6 fL (Normal) Range: 35.1-43.9 RDW CV 13.0 % (Normal) Range: 11.6-14.6 MCHC 32.8 {g/gl} (Normal) Range: 32-36 MCH 29.7 pg (Normal) Range: 27.0-32.0 MCV 90.4 fL (Normal) Range: 81-99 HCT 40.5 % (Normal) Range: 37-47 HGB 13.3 g/dL (Normal) Range: 12.0-15.0 RBC 4.48 {M/mm3} (Normal) Range: 4.2-5.4 WBC 8.5 K/mm3 (Normal) Range: 4.4-11.0 87-Emr-793560:25 D-Dimer Quantitative (DVT/PE) Comments: Test performed at:[facility] [address] [place] [address] D-DIMER QUANT 0.27 {FEU/ug/m} (Normal) Range: 0.27-0.49 Comments: NORMAL D-Dimer level (<0.50) indicates no DVT or PE. [id number] Troponin-I Comments: 'TROP' Serial specimen #1, #2, #3, or #4: 1Test performed at:[facility] [address] [place] [id number] TROPONIN-I < 0.02 ng/mL (Normal) Comments: TROPONIN-I EXPECTED VALUES <0.05 NEGATIVE 0.06 - 0.59 AT RISK OF [place] > OR = 0.60 SUGGEST [place] :30 BMP GAP 5 (Normal) Range: 5-15 CO2 30.0 mmol/L (Normal) Range: 21.0-32.0 CL 103 mmol/L (Normal) Range: 98-107 K 4.5 mmol/L (Normal) Range: 3.5-5.1 NA 138 mmol/L (Normal) Range: 136-145 CA 9.1 mg/dL (Normal) Range: 8.5-10.1 BC 17.1 {RATIO} (Normal) Range: 10-20 GFRAA 110 mL/min (Normal) GFR 91 mL/min (Normal) CREAT 0.7 mg/dL (Normal) Range: 0.6-1.0 BUN 12 mg/dL (Normal) Range: 7-18 GLU 82 mg/dL (Normal) Range: 70-110 68-Xjh-028767:30 LIPID VLDL 36 mg/dL (Normal) Range: 5-40 LDL 215 mg/dL (Abnormal) Range: 0-130 HDL 56 mg/dL (Normal) Comments: Reference RangeHDL <40 mg/dL Low HDL CholesterolHDL >or= 60 mg/dL High HDL Cholesterol TRIG 180 mg/dL (Normal) Range: 0-199 Comments: Serum Triglycerides Reference IntervalNormal <150 mg/dLBorderline high 150 - 199 mg/dLHigh 200 - 499 mg/ dLVery High > or = 500 mg/dL CHOL 307 mg/dL (Abnormal) Comments: <200 mg/dL Htnbdrgkt752-153 mg/dL Borderline>240 mg/dL High Risk 60-Cvh-881264:30 LIVER BID 0.09 mg/dL (Normal) Range: 0.00-0.30 BIT 0.40 mg/dL (Normal) Range: 0.00-4.00 ALT 18 U/L (Normal) Range: 12-78 ALK 102 U/L (Normal) Range: 50-136 AST 18 U/L (Normal) Range: 15-37 ALB 4.0 g/dL (Normal) Range: 3.4-5.0 TPROT 7.4 g/dL (Normal) Range: 6.4-8.2 18-Sug-572742:00 ABDOULAYE CULTURE-OTHER (22749) Comments: PATIENT NOT FASTINGPERFORMED BY: [facility] [id number] [facility] [id number] Information: SRC:JESSICA [id number] Result 1 RRF (Normal) Comments: Routine respiratory rhina Upper Respiratory Culture Final report (Normal) 52-Dkc-104988:23 Rapid Strep Test, Office (12518) Rapid Strep Test, Office Negative (Normal) 51-Rwz-619243:40 CBCMD ANC 6.6 3/uL (Normal) Range: 2.0-7.7 IG# 0.010 3/ul (Abnormal) Range: 0.0-0.0 IG% 0.10 % (Abnormal) Range: 0.0-0.0 B% 0.4 % (Normal) Range: 0-1 E% 1.5 % (Normal) Range: 0-5 M% 5.8 % (Normal) Range: 0-10 L% 15.2 % (Abnormal) Range: 19-41 MPV 9.4 fL (Normal) Range: 6.2-12.0 N% 77.0 % (Abnormal) Range: 47-70 PLT 172 K/mm3 (Normal) Range: 150-450 RDWSD 41.9 fL (Normal) Range: 35.1-43.9 MCHC 33.1 g/dL (Normal) Range: 32-36 RDWCV 13.4 % (Normal) Range: 11.6-14.6 MCH 28.8 pg (Normal) Range: 27.0-32.0 MCV 87.1 fL (Normal) Range: 81-99 HCT 42.6 % (Normal) Range: 37-47 HGB 14.1 g/dL (Normal) Range: 12.0-15.0 RBC 4.89 {M/mm3} (Normal) Range: 4.2-5.4 WBC 8.6 {k/mm3} (Normal) Range: 4.4-11.0 45-Tio-192020:40 CMP GAP 8 (Normal) Range: 5-15 CO2 31.0 mmol/L (Normal) Range: 21.0-32.0 CL 104 mmol/L (Normal) Range: 98-107 K 4.1 mmol/L (Normal) Range: 3.5-5.1 NA 143 mmol/L (Normal) Range: 136-145 BIT 0.40 mg/dL (Normal) Range: 0.00-1.00 ALT 20 U/L (Normal) Range: 12-78 ALK 94 U/L (Normal) Range: 50-136 AST 13 U/L (Abnormal) Range: 15-37 CA 8.9 mg/dL (Normal) Range: 8.5-10.1 AG 1.2 {RATIO} (Normal) Range: 0.9-2.4 GLOB 3.2 g/dL (Normal) Range: 2.7-4.2 ALB 3.8 g/dL (Normal) Range: 3.4-5.0 TPROT 7.0 g/dL (Normal) Range: 6.4-8.2 BC 20.0 {RATIO} (Normal) Range: 10-20 GFRAA 96 mL/min (Normal) GFR 79 mL/min (Normal) CREAT 0.8 mg/dL (Normal) Range: 0.6-1.0 BUN 16 mg/dL (Normal) Range: 7-18 GLU 89 mg/dL (Normal) Range: 70-110 24-Mlq-397273:40 LIPID VLDL 18 mg/dL (Normal) Range: 5-40 LDL 84 mg/dL (Normal) Range: 0-130 CHOL 169 mg/dL (Normal) Comments: <200 mg/dL Lmvrzpbvy697-236 mg/dL Borderline>240 mg/dL High Risk HDL 67 mg/dL (Normal) Comments: Reference RangeHDL <40 mg/dL Low HDL CholesterolHDL >or= 60 mg/dL High HDL Cholesterol TRIG 92 mg/dL (Normal) Comments: Serum Triglycerides Reference IntervalNormal <150 mg/dLBorderline high 150 - 199 mg/dLHigh 200 - 499 mg/ dLVery High > or = 500 mg/dL 58-Xty-276487:40 VITD 57.3 ng/mL (Normal) Comments: Vitamin D 25(OH) Status RangeDeficiency <20 ng/mL (50nmol/L)Insufficiency 20 - 30 ng/mL (50 - 75 nmol/L)Sufficiency 30 - 100 ng/mL (75 - 250 nm ol/L)Toxicity >100 ng/mL (250 nmol/L)Effective 2012:51 CHEST WITHOUT CONTRAST Radiology Report See Note (Normal) Comments: PROCEDURE: CT CHEST WITHOUT CONTRAST REASON FOR EXAM: Female, 57 years old. Shortness of breath andpossiblechronic interstitial lung disease. RADIATION DOSAGE (If Supplied By Facility): CTDIvol = ( 21 ) mGy, DLP =(698 ) mGycm TECHNIQUE: High resolution transaxial imaging was performed without theadministration of intravenous contrast material. Multiplanar coronal andsagittal images were refor matted. COMPARISON: Comparison is made with prior study dated August 21, 2011. FINDINGS:There is elevation of the right hemidiaphragm. The lungs are normal. There is no demonstrated pleural abnormal ity. There is mild cardiac enlargement. There are calcifications of thecoronary arteries. Normal mediastinum. Normal hilar regions. Normal unenhanced pulmonaryarteries. Normal unenhanced thoracic ao rta and visualized great vessels. There are multi-level degenerative changes of the thoracic spine. There is a 3.8 cm cyst in the lateral portion of the right kidney. IMPRESSION:There is elevation of th e right hemidiaphragm. There is no evidence ofinterstitial pulmonary scarring. Signed:Daryn Phelan M.D.May 31, 2012 at 12:54:08 PM [id number] Signed GP/GP If you are the referring physician and would like to consult with theradiologist who provided this interpretation, please contact Leigh Ann Mccabe at [phone]. If this radiologist is unavailable, yahir pierson directed to another radiologist to assist. If you are a patient with a question regarding this report, pleasecontactyour referring physician directly. Professional Interpretation Provided By: [facility] jonathan, Phone , These documents contain legally protected and confidential healthinformation intended only for the use of the individual or entity namedabove. If you are not t he intended recipient, you are hereby notifiedthatany disclosure, copying, distribution, or other use of these documents isstrictly prohibited. If you have received this information in error,pleasenotif y the sender immediately and arrange for the return or destructionofthese documents. Dictated on 05/30/12 1356 by Zhane MURRAY,Rosa Mariascribed on 05/31/12 1259 by ITS IMPORTSign by Zhane MURRAY,Daron lofton on 05/31/12 1300 Sign by: Zhane MURRAYDaryn 14-Apr-2012 VITD 43.1 ng/mL Comments: 05/03/12 f/u 11:45 (Normal) Range: 30.0-100.0 Comments: Vitamin D deficiency has been defined by the [place] ofMedicine and an Endocrine Society practice guideline as alevel of serum 25-OH vitamin D less than 20 ng/mL (1,2).The Endocrine Society went on to further define vitamin Dinsufficiency as a level between 21 and 29 ng/mL (2).1. IOM ([place] of Medicine). 2010. Dietary reference intakes for calcium and D. [place]: The National Academies Press.2. Oz MF, Stephanie STAPLES, Leda ARMSTRONG, et al. Evaluation, treatment, and prevention of vitamin D deficiency: an Endocrine Society clinical practice guideline. JCEM. 2010; 96(7): 1911-30.Performed at: [address] [id number] Director: Yumiko Mendez MD, Phone: [phone] 12-Ivx-67459:49 CBCD,SMEAR DIFF RED CELL MORPH SeeNote {NORMAL} (Normal) Comments: Result: NORM C+C PLT EST SeeNote (Normal) Comments: Result: ADEQUATE BASOPHIL 1 % (Normal) Range: 0-1 MONOCYTE 8 % (Normal) Range: 0-10 LYMPH 10 % (Abnormal) Range: 19-41 SEGS 81 % (Abnormal) Range: 47-70 CELLS COUNTED 100 (Normal) ABSOLUTE NEUT 7.2 3/uL (Normal) Range: 2.0-7.7 PLT 198 K/mm3 (Normal) Range: 150-450 RDW 14.5 % (Normal) Range: 11.6-14.6 MCHC 34.0 g/dL (Normal) Range: 32-36 MCH 29.2 pg (Normal) Range: 27.0-32.0 MCV 85.8 fL (Normal) Range: 81-99 HCT 40.9 % (Normal) Range: 37-47 HGB 13.9 g/dL (Normal) Range: 12.0-16.0 RBC 4.76 {M/mm3} (Normal) Range: 4.2-5.4 WBC 9.3 K/mm3 (Normal) Range: 4.4-11.0 :49 COMP METABOLIC GAP 6 (Normal) Range: 5-15 CO2 31.0 mmol/L (Normal) Range: 21.0-32.0 CL 104 mmol/L (Normal) Range: 98-107 K 4.0 mmol/L (Normal) Range: 3.5-5.1 NA 141 mmol/L (Normal) Range: 136-145 T BILI 0.40 mg/dL (Normal) Range: 0.00-1.00 ALT 22 U/L (Normal) Range: 12-78 ALK P 95 U/L (Normal) Range: 50-136 AST 19 U/L (Normal) Range: 15-37 CA 8.9 mg/dL (Normal) Range: 8.5-10.1 A/G 1.1 {RATIO} (Normal) Range: 0.9-2.4 GLOB 3.5 g/dL (Normal) Range: 2.7-4.2 ALB 4.0 g/dL (Normal) Range: 3.4-5.0 T PROT 7.5 g/dL (Normal) Range: 6.4-8.2 BUN/CRE 26.7 {RATIO} (Abnormal) Range: 10-20 EST GFR - AA 133 mL/min (Normal) EST GFR 110 mL/min (Normal) CREAT,SERUM 0.6 mg/dL (Normal) Range: 0.6-1.0 BUN 16 mg/dL (Normal) Range: 7-18 GLU 96 mg/dL (Normal) Range: 70-110 :49 TSH 2.37 {uIU/mL} (Normal) Range: 0.358-3.74 :49 VIT D,25 62566 24.4 ng/mL (Abnormal) Range: 30.0-100.0 Comments: Vitamin D deficiency has been defined by the [place] ofMedicine and an Endocrine Society practice guideline as alevel of serum 25-OH vitamin D less than 20 ng/mL (1,2).The Endocrine Society went on to further define vitamin Dinsufficiency as a level between 21 and 29 ng/mL (2).1. IOM ([place] of Medicine). 2010. Dietary reference intakes for calcium and D. [place]: The National Academies Press.2. Oz MF, Stephanie [place], Leda ARMSTRONG, et al. Evaluation, treatment, and prevention of vitamin D deficiency: an Endocrine Society clinical practice guideline. JCEM. 2010; 96(7): 1911-30.Performed at: [address] [id number] Director: Yumiko Mendez MD, Phone: [phone] VITAMIN B12 1201 pg/mL (Normal) Range: 254-1320 Comments: There is a low frequency possibility that high titers ofintrinsic blocking antibodies may not be completely inactivated during the reaction pretreatment stepof this testing method. If test results are i n conflictwith the clinical diagnosis, patient should be testedfor the presence of intrinsic factor blocking antibodies. :04 DEXA BONE DENSITY STUDY (HP) Radiology Report See Note (Normal) Comments: PROCEDURE: DUAL ENERGY X-RAY ABSORPTIOMETRY / DEXA. REASON FOR EXAM: Female, 56 years old. The patient is postmenopausal. TECHNIQUE: Bone Mineral Density (BMD) measurements of lumbar s pine andbila teral hips were obtained. COMPARISON: None. FINDINGS: Lumbar Spine (L1-L4): g/cm2 (1.281) / T-score (0.8) / Z-score (1.8)Left Femur Total: g/cm2 (1.083) / T-score (0.6) / Z-score (1.3)Right Femur Total: g/cm2 (1.071) / T-score (0.5) / Z-score (1.2) IMPRESSION:The patient is considered normal, as outlined below according to WorldHealth Organization (WHO) criteria. Fracture risk is low . Reference Information:The T-score is the number of standard deviations above or below thestandard which is normal for young adults at their peak bone mineraldensity. The World Health Organization (WHO ) interprets the T-scores asfollows: Above -1 Normal bone densityBetween -1 and -2.5 OsteopeniaEqual to / or below -2.5 Osteoporosis As a practical clinical guideline, osteopenia may be gr aded as follows:Mild -1 through -1.5Moderate -1.6 through -2.0Severe -2.1 through -2.4 The Z-score is the number of standard deviations above or below age-matchedcontrols. A Z-score of less than -1.5 would be considered abnormal. References:1. NIH Osteoporosis and Related Bone Diseases http://www.osteo.org2. International Society for Clinical Densitometry http://www.iscd.org3. National Osteoporo sis Foundation http://www.nof.org To consult with a radiologist regarding this report, please call our [id number] line @ Dictated on 11/17/11 09 by Zhane MURRAY,Chenteranscribed on 11/17/111326 by ITS IMPORTSign by Daryn Phelan MD on 11/17/111326 Sign by: Daryn Phelan MD 67-Lct-44906:52 BILAT SCRN DIGITAL & CAD Radiology Report See Note (Normal) Comments: MAMMOGRAPHY - BILATERAL SCREENING REASON FOR EXAM: Female, 56 years old. Routine annual screeningexamination. PERTINENT HISTORY: Grandmother with breast cancer. TECHNIQUE: Digital exa mination. M ediolateral oblique (MLO) andcraniocaudad (CC) views of both breasts were obtained. CAD: CAD wasperformed on this study. COMPARISON: Comparison is made with prior examination dated March. FINDI NGS:The breast composition is heterogeneously dense. There are no dominant masses or suspicious calcifications. Scatteredmicrocalcifications are seen in the left breast. No other significant abnormalit ies are identified. IMPRESSION:Scattered microcalcifications in the left breast as described. Routinefollow-up is suggested. ASSESSMENT CATEGORY:BIRADS Category 2: Benign finding(s). A letter regardi ng these resultswill be sent to the patient by the facility within 30 days. Approximately 10% of breast cancers are not detected by mammography. Anormal mammogram should not delay biopsy of a clinicall y suspiciousabnormality. To consult with a radiologist regarding this report, please call our [id number] line @ Dictated on 11/17/11 0940 by Zhane MURRAY,Rosa Mariascribed on 0955 by ITS IMPORTSign by Daryn Phelan MD on 11/17/11 0956 Sign by: Daryn Phelan MD Plan of Care Name Dates Details Instructions Hypertension : Reviewed Lab Indication: Hypertension Arthralgia of both hands : Reviewed Diagnostic Tests Indication: Arthralgia of both hands Arthralgia of both hands : Reviewed Lab Indication: Arthralgia of both hands Asthma, intrinsic, with status asthmaticus : Reviewed Master Welder Letter Indication: Asthma, intrinsic, with status asthmaticus Atrial fibrillation : Reviewed Master Welder Letter Indication: Atrial fibrillation Hypertension : Diet, Exercise, and Wt loss Indication: Hypertension Hypertension : HTN/CAD Red Flags Indication: Hypertension Hyperlipidemia : Cholesterol mgmt Indication: Hyperlipidemia Current non-smoker : Follow up in 3 months Indication: Current non-smoker Bronchitis due to tobacco use : Eprescribed prescriptions (G8553) Indication: Bronchitis due to tobacco use COPD with hypoxia : Follow up in 2 weeks Indication: COPD with hypoxia BMI 38.0-38.9,adult : Follow up in about 2 week Indication: BMI 38.0-38.9,adult Cough : Eprescribed prescriptions (G8553) Indication: Cough Bronchitis : Eprescribed prescriptions (G8553) Indication: Bronchitis Chest congestion : Follow up in 1 week Indication: Chest congestion Chest congestion : Eprescribed prescriptions (G8553) Indication: Chest congestion Low back pain potentially associated with radiculopathy : Follow up in 6 weeks Indication: Low back pain potentially associated with radiculopathy Current non-smoker : Eprescribed prescriptions (G8553) Indication: Current non-smoker Cellulitis : Eprescribed prescriptions (G8553) Indication: Cellulitis Wheezing : Follow up if no improvement or if symptoms worsen Indication: Wheezing Sinusitis, acute : Sinusitis *: sinus infection Indication: Sinusitis, acute Pharyngitis, acute : Sore throat: diagnosis and treatment Indication: Pharyngitis, acute Wheezing : Follow up if no improvement or if symptoms worsen Indication: Wheezing Other specified viral infection, in conditions classified elsewhere and of unspecified site : *URI Symptoms Indication: Other specified viral infection, in conditions classified elsewhere and of unspecified site Other specified viral infection, in conditions classified elsewhere and of unspecified site : *URI Treatment Indication: Other specified viral infection, in conditions classified elsewhere and of unspecified site Cough : Cough: coughing Indication: Cough Asthma, intrinsic, with status asthmaticus : Asthma: asthma Indication: Asthma, intrinsic, with status asthmaticus Hyperlipidemia : Follow up in 6 weeks Indication: Hyperlipidemia Planned Observations METABOLIC PANEL, COMPREHENSIVE (16215)Indication: Hypertension On: :22 Request Comments: send results to SARAI Bernal, BY NMR (47383)Indication: Hyperlipidemia On: :21 Request Comments: send results to dr Richey as well CALCIFIDIOL (26109) VIT D 25Indication: Vitamin D deficiency, unspecified On: : Request TSH (98899)Indication: Hyperlipidemia On: : Request URINALYSIS, W/ MICRO (36545)Indication: Hypertension On: :21 Request MICROALBUMIN: CREATININE RATIO (24457) AND (34869)Indication: Hypertension On: :21 Request CBC W/AUTO DIFF WBC (93911)Indication: Hypertension On: :21 Request Rapid Flu (88450 x 2)Indication: Wheezing On: 96-Qgs-097952:43 Request METABOLIC PANEL, COMPREHENSIVE (35125)Indication: Asthma, intrinsic, with status asthmaticus On: :45 Request CBC WITH MANUAL DIFF (59144)Indication: Asthma, intrinsic, with status asthmaticus On: :45 Request LIPID PANEL (48834)Indication: Hyperlipidemia On: :45 Request Vitamin D Hydroxy (58297)Indication: Vitamin D deficiency, unspecified On: :45 Request Vitamin D Hydroxy (97060)Indication: Vitamin D deficiency, unspecified On: 00-Tii-817889:57 Request Vitamin D Hydroxy (99821)Indication: Fatigue On: 02-Qyg-988010:45 Request VITAMIN B-12 (CYANOCOBALAMIN) (95696)Indication: Fatigue On: 76-Rkg-637760:45 Request TSH (21867)Indication: Fatigue On: 57-Sys-194369:45 Request METABOLIC PANEL, COMPREHENSIVE (68472)Indication: Fatigue On: 01-Aog-616806:45 Request CBC WITH MANUAL DIFF (40578)Indication: Fatigue On: :45 Request Planned Procedures Flu Vaccine (Quadrivalent) On: 16-Aug-2018 Intent 28700Or: Min DOIsaiLydia Comments: Lot #[id number]-L dltd, IMDose prefilled syringegiven by: Rachna Lyon LPN.VIS reviewed and ABN signed Min DO, Lydia Radiology - Hand - On: 16-Aug-2018 Intent BilateralBy: Min DO, Lydia Min DO, Lydia X-RAY OF RIGHT HIP, ONE VIEW On: 16-Aug-2018 Intent (56902)By: Min DO, Lydia Min DO, Lydia Radiology - Hip - LeftBy: On: 16-Aug-2018 Intent Min DO, Lydia Min DO, Lydia Radiology - Lumbar SpineBy: On: 16-Aug-2018 Intent Min DO, Lydia Min DO, Lydia X-RAY LEFT SHOULDER, 2+ VIEWS On: 16-Aug-2018 Intent (77011)By: Min DO, Lydia Min DO, Lydia Radiology - Shoulder - On: 16-Aug-2018 Intent RightBy: Min DO, Lydia Min DO, Lydia Aerosol Treatment (78372)By: On: 11-Nov-2016 Intent Dena Hurd LPN Solu -Medrol Injection, 125 mg On: 11-Nov-2016 Intent (J2930)By: Octavia Isabel CNP Comments: lot: [id number]: 03/08site/route: LGM/IMamt: 2mLVIS signed when applicableChelsea, SOLDERER DIPPER Aerosol Treatment (88419)By: On: 11-Nov-2016 Intent Octavia Isabel CNP Spirometry (13629)By: Chalo On: 11-Nov-2016 Intent Octavia BLANKENSHIP CHEST XRAY, PA & LATERAL On: 17-Sep-2016 Intent (28641)By: Shekhar Sharpe MD Solu -Medrol Injection, 125 mg On: 17-Sep-2016 Intent (J2930)By: Shekhar Sharpe MD Comments: solumedrollot:[id number]:03/08site:lt glutroute:IMdose:125mgD.ALYSHA Harris MAMMOGRAM, SCREENING, BOTH On: 29-Jul-2016 Intent BREAST (29923)By: Lydia Copeland DO, DO, Lydia X-RAY OF LUMBAR SPINE, AP VIEW On: 29-Jul-2016 Intent (52466)By: Lydia Copeland DO, DO, Kathleen Rocephin Injection, 2 Gram On: 09-Aug-2015 Intent (J0696)By: Jeanne Quinones DO Comments: ROCEPHINlot:[id number]:2*1*2017site:L and R glutroute:IMdose:2gDEMICK, SMA SPECIMEN HNDLNG/TRNSPRT, OFFC On: 31-Jan-2013 Intent > LAB (09476)By: JOSE Romo Aerosol Treatment (49636)By: On: 30-Aug-2012 Intent Chalo BLANKENSHIP, Kirstie Eprescribed prescriptions On: 30-Aug-2012 Intent (G8553)By: Magdalena Higgins LPN CT - ChestBy: Jeanne Quinones DO On: 17-May-2012 Intent Comments: noncontrast high resolution FLU VAC, SPLIT, >3 YEARS, On: 17-May-2012 Intent INTRAMUSC (64922)By: Heath MONTOYA, Comments: [id number] arm, IM prefilledMegan Laura Starr IMMUNIZ ADMNIN, 1 VAC, On: 17-May-2012 Intent SNGL/COMBO (79148)By: Laura Joe LPN TDAP VACCINE >7 IM (64203)By: On: 18-Jan-2012 Intent Suki Mandujano Comments: Lot:[id number]:08/14/13Amt:prefilledRoute:IMSite:left deltGiven By: LINDSAY Yee Inhaler Demo (89138)By: Joni On: 18-Jan-2012 Intent Jeanne WELLINGTON Radiology - Chest- PA and On: 18-Jan-2012 Intent LatBy: Jeanne Quinones DO FLU VAC, SPLIT, >3 YEARS, On: 18-Jan-2012 Intent INTRAMUSC (82239)By: Nazia, Comments: 2010 Suki PFT - CompleteBy: Joni WELLINGTON, On: 03-Nov-2011 Intent Jeanne Garcia Spirometry (95123)By: Joni On: 03-Nov-2011 Intent Jeanne WELLINGTON A Comments: good effort and curve mild restriction IMMUNIZ ADMNIN, 1 VAC, On: 03-Nov-2011 Intent SNGL/COMBO (31665)By: Heath Comments: Lot #[id number]-L arm, IMDose 0.5mlgiven by:Laura Sanchez LPN PNEUM VAC ADLT/IMUMNOSPR, On: 03-Nov-2011 Intent SBC/INTRM (49250)By: Laura Joe LPN DXA, BONE DENSITY, AXIAL On: 03-Nov-2011 Intent SKELETON (21014)By: Joni WELLINGTON, Comments: postmenopausal without etrogen Jeanne A MAMMOGRAM, SCREENING, BOTH On: 03-Nov-2011 Intent BREASTS (96847)By: Jeanne Quinones DO Planned Medications INJECTION, CEFTRIAXONE SODIUM, PER 250 MG Ordered: 09-Aug-2015 Pending Jeanne Quinones DO INJECTION, METHYLPREDNISOLONE SODIUM SUCCINATE, UP TO 125 MG Ordered: 17-Sep-2016 Pending Shekhar Sharpe MD INJECTION, METHYLPREDNISOLONE SODIUM SUCCINATE, UP TO 125 MG Ordered: 11-Nov-2016 Pending Octavia Isabel CNP Instructions Name Dates Details Current non-smoker : How to access health information online Indication: Current non-smoker Current non-smoker : How to access health information online - Detail Indication: Current non-smoker Current non-smoker : Patient Instructions Indication: Current non-smoker BMI 34.0-34.9,adult : How to access health information online - Detail Indication: BMI 34.0-34.9,adult BMI 34.0-34.9,adult : How to access health information online Indication: BMI 34.0-34.9,adult BMI 34.0-34.9,adult : Patient Instructions Indication: BMI 34.0-34.9,adult Bronchitis due to tobacco use : How to access health information online Indication: Bronchitis due to tobacco use Bronchitis due to tobacco use : How to access health information online - Detail Indication: Bronchitis due to tobacco use Bronchitis due to tobacco use : Patient Instructions Indication: Bronchitis due to tobacco use Cough : How to access health information online Indication: Cough Cough : How to access health information online - Detail Indication: Cough Cough : Patient Instructions Indication: Cough Bronchitis : How to access health information online Indication: Bronchitis Bronchitis : How to access health information online - Detail Indication: Bronchitis Bronchitis : Patient Instructions Indication: Bronchitis Chest congestion : How to access health information online Indication: Chest congestion Chest congestion : How to access health information online - Detail Indication: Chest congestion Chest congestion : Patient Instructions Indication: Chest congestion Current non-smoker : How to access health information online Indication: Current non-smoker Current non-smoker : How to access health information online - Detail Indication: Current non-smoker Current non-smoker : Patient Instructions Indication: Current non-smoker Cellulitis : Patient Instructions Indication: Cellulitis Pharyngitis, acute : Patient Instructions Indication: Pharyngitis, acute Asthma, intrinsic, with status asthmaticus : Patient Instructions Indication: Asthma, intrinsic, with status asthmaticus Hyperlipidemia : Patient Instructions Indication: Hyperlipidemia Encounters Office Visit On: 01-Sep-2018 11:24 Encounter Reason: Follow up tests - Date: (08/16/18 labs and xray).Encounter Diagnosis: BMI 34.0-34.9,adult, Current non-smoker, Arthralgia of both hands, Hip pain, bilateral, Hypertension, Low back pain potentially associated with radiculopathy End: 01-Sep-2018 12:21 [facility] Office Visit On: 16-Aug-2018 11:37 Encounter Reason: Follow up for chronic medical issues - The patient does not feel well, has decreased energy level and is sleeping well. Patient has been compliant with instructions. Current medication use: no side effe End: 16-Aug-2018 20:00 cts and compliant with dosing regimen. Patient sleeps 7 hours per night. Nutrition: balanced diet and supplemental vitamins. The medical issues the patient is following up for include All identified pro blems below, cardiac issues, COPD, high blood pressure, high cholesterol and other.Encounter Diagnosis: Current non-smoker, BMI 34.0-34.9,adult, Bilateral shoulder pain, unspecified chronicity, Vitamin D deficiency, unspecified, Obstructive sleep apnea, adult, Hyperlipidemia, Hypertension, Atrial fibrillation (427.31), Aortic stenosis, Low back pain potentially associated with radiculopathy, Hip pain, bilateral, Arthralgia of both hands, Need for prophylactic vaccination and inoculation against influenza, Bipolar Disorder, Asthma, intrinsic, with status asthmaticus [facility] Phone Encounter On: 22-Jan-2017 10:35 Encounter Diagnosis: Family history of malignant neoplasm of gastrointestinal tract (V16.0) End: 22-Jan-2017 10:38 [facility] Office Visit On: 25-Nov-2016 8:34 Encounter Reason: Follow up acute care visit - The patient improving. Patient has been compliant with instructions. Current medication use: no side effects. The medical issues the patient is following up for include URI.Encounter Diagnosis: End: 25-Nov-2016 9:13 BMI 38.0-38.9,adult, Current non-smoker, COPD with hypoxia, Aortic stenosis, Sinusitis, Sleep apnea, Bronchitis due to tobacco use [facility] Internal Medicine Annotation/Addendum On: 11-Nov-2016 12:10 Encounter Diagnosis: COPD with hypoxia End: 11-Nov-2016 12:39 [facility] Office Visit On: 11-Nov-2016 8:44 Encounter Reason: Cough - Symptoms include cough, dyspnea, wheezing, chills and runny nose. The cough is described as moist. Cough onset was 5 day(s) ago. Symptoms are described as worsening. Previous presentation includ End: 11-Nov-2016 10:00 ed a cough, a runny nose and dyspnea.Encounter Diagnosis: Current non-smoker, BMI 38.0-38.9,adult, Cough, Former smoker, S/P ablation of atrial fibrillation, Hypoxia, Bronchitis, COPD with hypoxia [facility] Office Visit On: 24-Sep-2016 11:10 Encounter Reason: Follow up acute care visit - The patient feeling better since last seen. Patient has been compliant with instructions. Current medication use: no side effects and compliant with dosing regimen. Patient End: 24-Sep-2016 15:02 sleeps 8 hours per night. Nutrition: balanced diet.Encounter Diagnosis: BMI 37.0- 37.9, adult, Current non-smoker, Bronchitis [facility] Office Visit On: 17-Sep-2016 11:37 Encounter Reason: Cold Symptoms - Symptoms include runny nose, postnasal drainage and productive cough (yellow and slight blood). Onset was gradual 1 week(s) ago.Encounter Diagnosis: Chest congestion, Bronchitis, Hypoxia End: 17-Sep-2016 16:05 [facility] Office Visit On: 29-Jul-2016 10:44 Encounter Reason: Back Pain - This condition occurred without any known injury. The injury involved the lower back. The last clinic visit was month(s) ago. No changes in management were made at the last visit. Symptoms i End: 29-Jul-2016 11:40 nclude back pain, spasm and stiffness. Symptoms are located in the symmetrically. The pain radiates to the buttock. The patient describes the pain as aching. Onset was sudden. The symptoms occur constan tly. The patient describes symptoms as severe and worsening. Current treatment includes nonsteroidal anti-inflammatory drugs. 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 Symptoms are located in the left eye. Onset was sudden 1 week(s) ago. The patient de End: 11-Aug-2015 22:45 scribes this as severe and worsening. Note for Eye redness: says feels like film over eye and if rubs takes film away- and no eye issues but swelling making hard to see- no fever only painful to touch or close eye tightEncounter Diagnosis: Cellulitis [facility] Office Visit On: 15-Jan-2015 13:14 Encounter Reason: Cough - The onset of the cough has been sudden. The cough is characterized as productive of mucoid sputum. The amount of sputum produced is scanty. The cough occurs all the time. The symptoms are aggra End: 15-Jan-2015 13:39 vated by supine posture. The symptoms have been associated with headache, runny nose and wheezing, while the symptoms have not been associated with fever or hoarseness. the color of the sputum is yellowish.Encounter Diagnosis: Bronchitis, Cough (786.2), Wheezing (786.07) [facility] Office Visit On: 20-Feb-2013 9:44 Encounter Diagnosis: Asymmetric tonsils (474.8) End: 20-Feb-2013 10:28 [facility] Office Visit On: 31-Jan-2013 10:18 Encounter Reason: Sinusitis/ - The duration of the symptoms are 2 weeks The course has been constant. The sinusitis/ has no relieving factors. Associated features include The symptoms have been associated with ear pain, End: 31-Jan-2013 10:41 nasal discharge/stuffy nose, sinus pain and sore throat. Note for Sinusitis/: left side worse, blooody drainage. has bad sinus. sore throat unusal. getting alot sinus headache last few weeks. use ibu and sometimes cold sinus.Encounter Diagnosis: ACUTE PHARYNGITIS (462.), Sinusitis acute (461.9) [facility] Office Visit On: 30-Aug-2012 13:01 Encounter Reason: Cough - The onset of the cough has been sudden. The cough is characterized as productive of mucoid sputum. The amount of sputum produced is scanty. The cough occurs all the time. The symptoms are aggra End: 30-Aug-2012 14:07 vated by supine posture. The symptoms have been associated with hoarseness, runny nose and wheezing, while the symptoms have not been associated with edema, fever or headache. the color of the sputum is yellowish. Note for Cough : started sore throat then cough, ache all over Encounter Diagnosis: Cough (786.2), Wheezing (786.07), VIRAL INFECTION, UNSPECIFIED (079.99) [facility] Office Visit On: 28-Jun-2012 9:06 Encounter Reason: Follow up tests - Diagnostic tests include CT scan (chest for sob). Date: (05/30/12). Current symptoms include other (skin lesion on chest). Note for Follow up tests: she has had stress test with tito End: 28-Jun-2012 9:45 and echo yearly - becuase of calcium in coronaries- she didnt like the qvar made her feel like she had chest congestion- she doesnt want to do any more inhalers- she fels owrse than when not on it , [ADDITIONAL REASON] Skin Lesions - Symptoms include single skin lesion. The patient describes the lesion(s) as painful and increasing in size. Onset was gradual year(s) ago (1). There is no known event that preceded symptom onset. The symptoms occur constantly. The patient describes this as worsening. Symptoms are exacerbated by pressure. Associated symptoms do not include fever. Note for Skin Lesions: located on her chest Encounter Diagnosis: Asthma,Intrinsic (493.11), Lesion-Unknown behavior (238.2), Hyperlipidemia (272.4), VITAMIN D DEFICIENCY, NOS (268.9) [facility] Office Visit On: 17-May-2012 14:31 Encounter Reason: Follow up for chronic medical issues - The patient feels well with minor complaints (I have troubles with the bipolar), has decreased energy level and is sleeping well. Patient has been non-compliant wi End: 17-May-2012 22:35 th instructions. Current medication use: no side effects. Patient sleeps 8 (at elast 8 and sometimes more than that) hours per night. The medical issues the patient is following up for include asthma, c ardiac issues (afib), depression (bipolar), high cholesterol and other (vit D def, ddd, sleep apnea). blood pressure range : (about 135/clsoe to 90-95 per patient). Note for Follow up for chronic medic al issues: she has had cpap for about 3 mos and thinks ome improvment- she didnt do qvar long enough so discussed taking for at least month ??and then go from there- she is sleeping better and no heart issues sees tito in jul- she is going to start working harder on diet again less carbs and more protein- saw kathie about her kidney and is ok per patient, [ADDITIONAL REASON] Follow up tests - Date: (labs 03/2012Had PFTs and started on inhalerscxr (says she had it done [address] [facility] -- called med rec to have sent over along with renal u/s to [id number])). Encounter Diagnosis: Hyperlipidemia (272.4) , Asthma,Intrinsic (493.11), Need for prophylactic vaccination and inoculation against influenza (V04.81), SOB (786.05) [facility] Office Visit On: 18-Jan-2012 11:35 Encounter Reason: Follow up tests - Diagnostic tests include other (labs and bone dexa) and PFTS. Date: (11/17/11). Follow up visit with no current symptoms. Note for Follow up tests: had sleep study and apparently has End: 18-Jan-2012 12:19 significant sleep apnea and getting cpap- tomorrow so should help her feel better- has hx of pneumonia in past that didnt treat- and alot of bronchitis when was smoking and told her lungs were scarred- she does get wheeze if exposed to smoke- and some sob with significant exertion- has been watching diet and weight coming down- and her vit d low- she isnt taking anyEncounter Diagnosis: Need for prophylactic vaccination and inoculation against influenza (V04.81), Obstructive sleep apnea (327.23), Asthma,Intrinsic (493.11), VITAMIN D DEFICIENCY, NOS (268.9), Hypertension [facility] Office Visit On: 03-Nov-2011 15:34 Encounter Reason: new patient female physical - General health: feels well with minor complaints, has decreased energy level and is sleeping well. The patient's appetite is decreased (had sx and anesthesia makes not want End: 04-Nov-2011 6:54 to eat so started eating less and lost weight so kept with it and now doesnt has as much an appetite. ??Weighted 236 at the beginnin og August and today weights 213.9 clothes and shoes.). Nutrition: normal/adequate. Exercises 7 (now does patient at home daily with stretching and using bands for back...20-30min qd) days per week. Sleeps on average 9 hours per night. Normal bowel and bladder habits. Safety measures include appropriate use of safety belts and home smoke detectors. Current emotional problems include anxiety, depression and sleep disturbances. Note for new patient female physical: s ees Dr Rubio every 6 mos for bicuspid aortic valve- last labs in jul- had disc surgery aug [address] Otero and doing alot better- bipolar was diagnosed 3 years ago- counseling center - dr Sr- sees couns elor too Dr jones- ups and downs with this- pretty reasonably controlledEncounter Diagnosis: Hypertension, Hyperlipidemia (272.4), Bipolar Disorder, Degenerative Disc Disease - Lumbar (722.52), Family history of malignant neoplasm of gastrointestinal tract (V16.0), screening, Atrial fibrillation (427.31), Fatigue (780.79), hypoxia [facility] Payers Deepti /BSMedicare Secondary UnitWegabino Dill; a guarantor
--- OUTSIDE RECORDS SUMMARY | 2018-09-28 06:30 | XMS RPT_ITS | Continuity of Care Document ---
:1955 Author Organization [facility] Address [facility] [address] [address] Phone Care Team Providers Name Role Phone Lydia Copeland DO Unavailable Duane Rai Unavailable Physical Therapy, [facility] Unavailable Dr. Julio Gordon Unavailable LINDSAY Lyon Unavailable Unavailable Dena Hurd LPN Unavailable Unavailable Unavailable Unavailable Problems Name Dates Details Aortic stenosis (I35.0, 424.1) Status: Active Arthralgia of both hands (M25.541, 719.44) Status: Active Asthma, intrinsic, with status asthmaticus [...] monitor ion for 30 days Status: Active Hypoxia (R09.02, 799.02) Comments: suspect copd Spriometry 11-11-16 Mod severe restriction Status: Active hypoxia Status: Active Low back pain potentially associated with radiculopathy (M54.5, 724.2) Status: Active Need for prophylactic vaccination and [...] Sent by Dr. Mckee, pt went to [facility] in [place] Dr. Jose Carlos Gates did abaltion at [facility] Status: Active screening Status: Active Sinusitis, acute (J01.90, 461.9) Status: Active Sleep apnea (G47.30, 780.57) Comments: will contact [facility] Status: Active Vitamin D deficiency, unspecified (E55.9, [...] Quantity: 90 {Tablet} Refills: 3 Ordered:16-Aug-2018 Yvette Cpoeland DO, DO, Kathleen Start : 16-Aug-2018 Active [...] days Quantity: 60 {Tablet} Refills: 0 Ordered:17-May-2012 Larua Joe LPN Start : 18-Jan-2012 Active ZOLOFT, [...] 15-Jan-2015 End : 29-Jul-2016 Inactive CO-Q 10 [place]-3 Fish Oil Oral Capsule 1 Capsule qd [...] {Tablet} Refills: 0 Ordered:11-Nov-2016 Chalo BL[employer] Octavia Guzman Start : 11-Nov-2016 End : 21-Nov-2016 Inactive [...] {Inhaler} Refills: 0 Ordered:25-Nov-2016 Chalo [employer] Octavia Guzman Start : 25-Nov-2016 End : 02-Dec-2016 Inactive QVAR, 80MCG/ACT (Inhalation Aerosol Solution) 1 Aerosol Soln puff bid for 0 days Quantity: 1 {Aerosol_Soln} Refills: 2 Ordered:31-Jan-2013 JOSE Romo Start : 17-May-2012 End : 31-Jan-2013 Inactive Comments:rinse mouth after use Spiriva Respimat 1.25 MCG/ACT Inhalation Aerosol Solution 2 (two) Puff qd for 0 days Quantity: 2 {QS} Refills: 3 Ordered:16-Aug-2018 Rachna Lyon LPN Start : 25-Nov-2016 End : 16-Aug-2018 Inactive Tessalon Perles 100 MG Oral Capsule 1 (one) Capsule Capsule tid prn cough for 10 days Quantity: 30 {Capsule} Refills: 0 Ordered:11-Nov-2016 Chalo [employer] Octavia Guzman Start : 11-Nov-2016 End : 21-Nov-2016 Inactive [...] Details Appendectomy Completed Comments: age 6 Back Sx - August 21: Bulging disc Completed Comments: Dr Reilly Heart Ablasion Completed Comments: 2004 and 2006 tubal ligation Completed Comments: 1979 Date Value Details 12-Jul-2018 Pulmonary Visit Report Result: Comments: See Note; NOTES: [facility] [address] [place] [address] OFFICE VISIT Date of Service: 07/12/18 MR#: [id number] Acct: [id number] Name: ADRIANA GALVAN Rep #: [id number] : 1955 Provider: Ernesto Webster MD Age/Sex: 63/F [place] [facility] Status: Signed Assessment AND Plan Problems 1. 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 [place] [address] OFFICE VISIT Date of Service: 04/22/18 MR#: [id number] Acct: [id number] Name: ADRIANA DILL Rep #: [id number] : 1955 Provider: Stanley Richey MD Age/Sex: 63/F [place] [facility] Status: Signed HPI HPI Chief Complaint: Routine f/u Details: Details: Referring physician: Dr. Jeanne Quinones It was a pleasure seeing your patient, Adriana Dill, today in our office. She Is a 63-year-old female and is returning for followup of her atrial fibrillation status post pulmonary vein isolation at the [facility] in 2003, mild coronary disease status post [...] underwent left and right heart catheterization at [facility] by myself on 03/05/17 which demonstrated normal [...] QDAY #90 tab 11/10/17 [Rx Confirmed 04/22/18] [facility] Medical History Long-term use of high- risk [...] History Brother CAD (coronary artery disease) from [place] age 52 Father Dementia Mother Cancer Social [...] Detail Other Orders Orders: Follow Up +6M (Kaiden) Coding Level of Care Code Off [...] Walk Test Result: Comments: See Note; NOTES: [facility] Pulmonary Services/Neurology [address] [place] [address] MR#: [id number] Acct: [id number] Name: ADRIANA DILL Rep #: [id number] : 0 1955 63 From: Ernesto Webster MD Referring Dr: Yuni Banks NP Date: Ordering Dr: Sex: F C Location: PSN PSN 6 Minute Walk Test - 6 Minute Walk Test 6 Minute Walk Test: 6 Minute Walk Test PS N:6-Minute Walk Test Start: 02/17/18 08:49 Freq: Status: Active Protocol: RESP.6MINW Document 02/17/18 08:30 EW (Rec: 02/17/18 08:52 EW [id number]) 6 Minute Walk Test Date Performed 02/17/18 [...] closely given level of desaturation. 01/20 10/07 5286 <Electronically signed by Ernesto Webster MD> Date Ernesto Webster MD CC: Date Dictated: 02/17/18 1040 Date Transcribed: 02/17/181039 Clinical Fellow: Ernesto Webster Signed 12-Jan-2018 Pulmonary Visit Report Result: Comments: See Note; NOTES: [facility] [address] [place] [address] OFFICE VISIT Date of Service: 01/11/18 MR#: [id number] Acct: [id number] Name: ADRIANA GALVAN Rep #: [id number] : 1955 Provider: Yuni Banks Age/Sex: 63/F [place] [facility] Status: Signed Assessment AND Plan 1. MEGHNA (obstructive sleep apnea) G47.33 Status Chronic Plan [...] months. Plan Detail Follow Up 6 Months (BWA) HPI HPI Comments Details: PFT, Walk, and [...] any inhalers. She has not tried any hidm-jzs-gnqkwkj medications. She is pleased that she continues [...] Visit Reasons: 6 M FU DME Vendor: [employer] Allergies flecainide Allergy (Verified 01/11/18 09:23) Unknown [...] #90 tab 11/10/17 [Rx Confirmed 12/20 01/05] [facility] Medical History Long-term use of high-risk medication [...] History Brother CAD (coronary artery disease) from [place] age 52 Father Dementia Mother Cancer Social [...] Z68.33 01/12/18 1520 <Electronically signed by Yuni Banks LICENSED INVESTMENT SALES ASSISTANT-C&am p;#62; Date Yuni Stringer Signature: Date (if applicable) CC: Lydia Copeland 21-Dec-2017 Pulmonary Function Report Comp Result: Comments: See Note; NOTES: [facility] Pulmonary Services/Neurology [address] [place] [address] MR#: [id number] Acct: [id number] Name: ADRIANA DILL Rep #: [id number] : 62 From: Ernesto Webster MD Referring Dr: Ernesto Webster MD Status: REG CLI Ordering Dr: Date: Location: [facility] Sex: F C COMPLETE PULMONARY FUNCTION TEST INTERPRETATION Brief HPI: Patient is a 62 year old female, currently under the care of myself, who presents to [facility] for complete pulmonary function tests secondary to [...] Webster MD; Lydia Copeland DO Date Dictated: 12/21/171437 Date Transcribed: 12/21/171437 Clinical Fellow: DAVID Signed 19-Oct-2017 Cardiology Visit Report Result: Comments: See Note; NOTES: [facility] [address] [place] [address] OFFICE VISIT Date of Service: 10/19/17 MR#: [id number] Acct: [id number] Name: ADRIANA DILL Rep #: [id number] : 1955 Provider: Stanley Richey MD Age/Sex: 62/F [place] [facility] Status: Signed HPI 3 M FU: Chief Complaint: Routine follow-up Details: Referring physician: Dr. Jeanne Quinones I t was a pleasure seeing your patient, Adriana Dill, today in our office. She Is a 62-year-old female and is returning for followup of her atrial fibrillation status post pulmonary vein isolation at the [facility] in 2003, mild coronary disease [...] underwent left and right heart catheterization at [facility] by myself on 03/05/17 which demonstrated normal [...] CAD (coronary artery disease) Di ed from [place] age 52 Social History Smoking Status: Former [...] the patient be referred to Dr. Magaña [facility] for further atrial fibrillation evaluation and [...] well-controlled. Continue Zetia and gemfibrozil. 4. R babar office in 6 months. This note was generated using a voice recognition system and there may be incorrect words, spelling or punctuation that were not noted when reviewing the office note prior to ramila cr. Plan Detail Follow Up 6 Months (Kaiden) Coding Level of Care Code Off vis,est,level 3 10/19/17 6437 <Electronically signed by Stanley Richey MD> Date Stanley Richey MD Cosigner Signature: Date (if applicable) CC: 11-Oct-2017 Echocardiogram Complete Result: Comments: See Note; NOTES: [facility] Cardiovascular Services [address] [place] [address] Echo Complete 10/07/17 1045 MR#: [id number] Acct: [id number] Name: ADRIANA DILL ep #: [id number] : 1955 62 From: Stanley Richey MD Attending Dr: Stanley Richey MD Status: REG CLI Ordering Dr: Stanley Richey MD Date: 10/07/17 Location: [facility] Sex: F C Admitted: Reason For S tudy: PHTN, MELISSA disorder Procedure This was a 2D Doppler, [...] Referring Physician: Lydia Copeland Performed By: Charlene Gallagher RDCS, RVT 10/11/17 1039 Date Stanley Richey MD CC: Stanley Richey MD; Lydia Copeland DO Date Dictated: 10/07/17 1045 Date Transcribed: 10/11/17 1039 Clinical Fellow: Signed 23-Jul-2017 6 Minute Walk Test Result: Comments: See Note; NOTES: [facility] Pulmonary Services/Neurology [address] [place] [address] MR#: [id number] Acct: [id number] Name: ADRIANA DILL Rep #: [id number] : 0 1955 62 From: Ernesto Webster MD Referring Dr: Ernesto Webster MD Date: Ordering Dr: Sex: F C Location: PSN PSN 6 Minute Walk Test - 6 Minute Walk Test 6 Minute Walk Test: 6 Minute Walk Test PSN:6- Minute Walk Test Start: 07/21/17 09:24 Freq: Status: Active Document 07/21/17 09:05 [facility] (Rec: 07/21/17 09:28 [facility] [id number]) 6 Minute Walk Test Date Performed 07/21/17 [...] CC: Date Dictated: 07/23/17711 Date Transcribed: 07/23/17711 Clinical Fellow: Ernesto Webster Signed 25-Apr-2017 6 Minute Walk Test Result: Comments: See Note; NOTES: [facility] Pulmonary Services/Neurology [address] [place] [address] MR#: [id number] Acct: [id number] Name: ADRIANA DILL Rep #: [id number] : 0 1955 62 From: Michael Segal DO Referring Dr: Yuni Banks LICENSED INVESTMENT SALES ASSISTANT Date: Ordering Dr: Sex: F C Location: PSN PSN 6 Minute Walk Test - 6 Minute Walk Test 6 Minute Walk Test: 6 Minute Walk Test PSN :6-Minute Walk Test Start: 04/23/17 11:39 Freq: Status: Active Document 04/23/17 11:00 EW (Rec: 04/23/17 11:47 EW [id number]) 6 Minute Walk Test Date Performed 04/23/17 [...] Dictated: 04/25/17 1120 Date Transcribed: 04/25/17 1120 Clinical Fellow: Michael Segal DO Signed 18-Mar-2017 Pulmonary Function Report Comp Result: Comments: See Note; NOTES: [facility] Pulmonary Services/Neurology [address] [place] [address] MR#: [id number] Acct: [id number] Name: ADRIANA DILL Rep #: [id number] : 62 From: Ernesto Webster MD Referring Dr: Stanley Richey MD Status: REG CLI Ordering Dr: Date: Location: N Sex: F C Pulmonary Function Report Comp Pulmonary Function Report Comp: COMPLETE P ULMONARY FUNCTION TEST INTERPRETATION Brief HPI: Patient is a 62 year old female, currently under the care of Dr. Richey, who presents to [facility] for complete pulmonary fu nction tests secondary [...] 2011. 03/18/17 1615 <Electronically signed by Ernesto Addison> Date Ernesto Webster MD CC: Ernesto Webster MD; Lydia Copeland DO Date Dictated: 03/18/17 1610 Date Transcribed: 03/18/171609 Clinical Fellow: DAVID Signed 05-Mar-2017 Echo Transesophageal (JOÃO) Result: Comments: See Note; NOTES: [facility] Cardiovascular Services [address] [place] [address] Echo Transesophageal (JOÃO) 03/05/17 1009 MR#: [id number] Acct: [id number] Name: ADRIANA MAURICE Rep #: [id number] : 1955 62 From: Stanley Richey MD Attending Dr: Stanley Richey MD Status: REG CLI Ordering Dr: Stanley Richey MD Date: 03/05/17 Location: [facility] Sex: F C Admitted: Reason For Study: Aortic stenosis Medication JOÃO probe passed without difficulty. Smpsicnbe20ub gargled and swallowed. Versed 2 mg given [...] Physician: Lydia Copeland M.D. Performed By: Shayna Pillai, YESSY [facility] signed by: Stanley Richey MD on 03/05/2017 02:45 PM 03/05/17 1445 Date Stanley Richey MD CC: Stanley Richey MD; Lydia Min [place] Date Dictated: 03/05/17 1009 Date Transcribed: 03/05/17 1445 Clinical Fellow: Signed 17-Sep-2016 Chest PA and Lateral Result: Comments: See Note; NOTES: [facility] Imaging Services [address] [place] [address] Verdana 4d Chest PA and Lateral MR#: [id number] Acct: [id number] Name: ADRIANA DILL Rep #: [id number] : 1955 F 61 From: Daryn Phelan MD PCP: Lydia Copeland DO Status: REG CLI Study: Chest PA and Lateral Date of Exam: 09/17/16 Exam# [id number] Ordering Dr: Shekhar Sharpe Y: X-RAY CHEST [...] Daryn Phelan MD at 15:02 EST Tel [phone], Service support [phone], CC: Lydia Copeland ; Shekhar Sharpe Clinical Fellow: Signed 26-Aug-2016 Echocardiogram Complete Result: Comments: See Note; NOTES: [facility] Cardiovascular Services [address] [place] [address] Echo Complete 08/26/16 1131 MR#: [id number] Acct: [id number] Name: ADRIANA DILL ep #: [id number] : 1955 61 From: Stanley Richey MD Attending Dr: Stanley Richey MD Status: REG CLI Ordering Dr: Stanley Richey MD Date: 08/26/16 Location: [facility] Sex: F C Admitted: Reason For S [...] Measurements & Calculations MV E m ax brina: 74.2 cm/sec Lat Peak E' Brina: 11.4 [...] Performed By : Lina Bee RDCS 08/26/16 155 Date Stanley Richey MD CC: Stanley Richey MD ; Lydia Copeland DO Date Dictated: 08/26/16 1131 Date Transcribed: 08/26/16 1555 Clinical Fellow: Signed 18-Aug-2016 Bilat Scrn Digital AND CAD Result: Comments: See Note; NOTES: [facility] Imaging Services [address] [place] [address] Verdana 4d Bilat Scrn Digital AND CAD MR#: [id number] Acct: [id number] Name: ADRIANA DILL Rep #: [id number] : 1955 F 61 From: Calixto Main MD PCP: Lydia Copeland DO Status: REG CLI Study: Bilat Scrn Digital AND CAD Date of Exam: 08/18/16 Exam# [id number] Ordering Dr: Jose Alfredo Copeland DO MAMMOGRAPHY [...] delay biopsy of a clinically suspicious abnormality. [id number] Electronically Signed: Modesto Main MD at 10:13 EST Tel , Service support [phone], CC: Lydia Copeland DO Clinical Fellow: Signed 29-Jul-2016 L/S Spine Min 4 Views Result: Comments: See Note; NOTES: [facility] Imaging Services [address] [place] [address] Verdana 4d L/S Spine Min 4 Views MR#: [id number] Acct: [id number] Name: ADRIANA DILL Re p #: [id number] : 1955 F 61 From: Juvenal Zarate MD PCP: Lydia Copeland DO Status: REG CLI Study: L/S Spine Min 4 Views Date of Exam: 07/29/16 Exam# [id number] Ordering Dr: Lydia Copeland STUDY: X-RAY - [...] MD at 17:01 EST , Service support [phone], CC: Lydia Copeland DO Clinical Fellow: Signed 25-Dec-2014 Emergency Department Summary Result: Comments: See Note; NOTES: [facility] Medical Records Department [address] [place] [address] Emergency Department Summary MR#: [id number] Acct: [id number] Name: ADRIANA DILL Rep #: [id number] : 1955 59 From: Gema Marr PCP: Jeanne Quinones DO Status: [facility] ER DATE OF SERVICE: 12/17/2014 HISTORY OF [...] DISPOSITION: Discharge. DIAGNOSIS: Ches t wall pain. MD Татьяна Rhoades C: Jeanne Quinones DO T: [facility] JOB: [id number] 12/25/14 0056 <Electronically signed by Gema Marr > Date ___ Gema Marr CC: Jeanne Fast DO Date Dictated: 12/17/14 1248 Date Transcribed: 12/17/14 1248 Clinical Fellow: Signed 18-Dec-2014 12 Lead Electrocardiogram Result: Comments: See Note; NOTES: [facility] Cardiovascular Services [address] [place] [address] 12 Lead EKG 12/17/149 MR#: [id number] Acct: [id number] Name: KENNETH DILL Rep #: [id number] : 1955 59 From: Sj Rowe MD [...] ECG Confirmed by SJ ROWE MD ([id number]), manager editorial MATHIEU SIMON ([id number]) on 12/18/2014 2 :39:37 PM Referred By: OLIVA Confirmed By:SJ ROWE MD 12/18/14 1439 Date Sj Rowe MD CC: Jeanne Fast DO Date Dictated: 12/17/14 1129 Date Transcribed: 12/17/14 112 Clinical Fellow: Signed 17-Dec-2014 Discharge Instruction Result: Comments: See Note; NOTES: [facility] Medical Records Department [address] [place] [address] Discharge Instruction 12/17/14 1244 MR#: [id number] Acct: [id number] Name: ADRIANA DILL Rep #: [id number] : 1955 59 From: Gema Marr PCP: [...] contact your doctor. Call Doctors R donaldo ( [phone]) or report to the closest Emergency Room. Call 911 if necessary. 12/17/14 1246 <Electronically signed by Gema Marr > Date Gema Marr Cosigner Signature (If Indicated): Date CC: Jeanne Quinones DO 17-Dec-2014 Chest PA and Lateral Result: Comments: See Note; NOTES: [facility] Imaging Services [address] [place] [address] Radiology Report MR#: [id number] Acct: [id number] Name: ADRIANA DILL Kenna Rep #: [id number] : 1955 F 59 From: Daryn Phelan MD PCP: Jeanne Quinones DO Status: REG ER Study: Chest PA and Lateral Date of Exam: 12/17/14 Exam# [id number] Ordering Dr: Gema Marr STUDY: X-RAY CHEST [...] Daryn Phelan MD at 12:26 EDT Tel [phone], Service support [phone], RAD/Chest PA and Lateral IMPRESSION: There is elevation of the right hemidiaphragm with linear atelectasis at the right lung base. Electronically Signed: Daryn Phelan MD at 12:26 EDT Tel [phone], Service support [phone], Fax CC: Gema Quinones DO Clinical Fellow: Signed 08-Aug-2014 Echocardiogram Complete Result: Comments: See Note; NOTES: [facility] Cardiovascular Services [address] [place] [address] Echo Complete 08/08/14 1245 MR#: [id number] Acct: [id number] Name: REINIER DILL Rep #: [id number] : 1955 59 From: Stanley Richey MD Attending Dr: Stanley Richey MD Status: REG CLI Ordering Dr: Stanley Richey MD Date: 08/08/14 Location: [facility] Sex: F C Admitted: Procedure This was [...] Dictated: 08/08/14 1245 Date Transcribed: 08/08/14 1607 Clinical Fellow: Signed Family History Unknown Family Member Name [...] Primary Occupation Comments: 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 Status: Active Smoking Status Name Dates Details Former smoker Vital Signs Date Test Result Details 72-Epd-285386:45 Pulse 65 /min Comments: Pattern: Regular Respiration [...] 2.02 m2 Results Date Description Value Details 06-Liv-380145:40 Basic Metabolic Profile (BMP) Comments: [facility] [address] [place], [place], [address] GAP 8 (Normal) Range: 5-15 CO2 31.0 [...] Comments: Please note revised GLUCOSE reference range admxjuilf29/02/2018. 99-Ued-268954:40 CBC W/Diff, Automated Comments: [facility] [address] [place], [place], [address] Absolute Lymph 2.08 {X10_3/ul} (Normal) Range: 0.83-4.51 [...] 4.2-5.4 WBC 7.9 K/mm3 (Normal) Range: 4.4-11.0 84-Loq-068492:40 Microalb:Creat Ratio,Random UR Comments: [facility] [address] [place], [address] MALB:CREAT 7.6 {mg/g_CRE} (Normal) MICROALBUMIN,UR 5.1 mg/L (Normal) UR CREAT 66.90 mg/dL (Normal) 13-Ftd-395877:40 Thyroid Stim Hormone (TSH) Comments: [facility] [address] [place] [address], [address] TSH 1.50 {uIU/mL} (Normal) Range: 0.358-3.74 35-Rba-311779:40 Urinalysis, Complete Comments: How was Urine Obtained? CLEAN [facility] [address] [place], [address] MUCUS, URINE 0 SEEN {/hpf} (Normal) BACTERIA [...] (Normal) CLARITY Clear (Normal) COLOR Yellow (Normal) 66-Qea-159698:40 Vitamin D,25 Hydroxy Comments: [facility] [address] [place], [address] Vitamin D 25-OH 24.2 ng/mL (Abnormal) Range: 29.95-100.01 Comments: Vitamin D 25(OH) Status Range Deficiency <20 ng/mL (50nmol/L) Insuffciency 20 - 30 ng/mL (50 - 75 nmol/L) Sufficiency 30 - 100 ng/mL (75 - 250 nmol/L) Toxicity >100 ng/mL (>250 nmol/L) 21-Apr-20188:27 Lipid Profile Comments: [facility] [address] [place], [place], [address] VLDL 9 mg/dL (Normal) Range: 5-40 LDL [...] mg/dL High Risk 21-Apr-20188:27 Liver Profile Comments: [facility] [address] [place], [address] D BILI 0.12 mg/dL (Normal) Range: 0.00-0.30 T BILI 0.30 mg/dL (Normal) Range: 0.20-1.00 ALT 14 U/L (Normal) Range: 13-56 ALK P 89 U/L (Normal) Range: 45-117 AST 13 U/L (Abnormal) Range: 15-37 GLOB 3.4 g/dL (Normal) Range: 2.2-4.2 ALB 3.6 g/dL (Normal) Range: 3.2-5.0 T PROT 7.0 g/dL (Normal) Range: 6.4-8.2 51-Oea-955051:16 Lipid Profile Comments: Order Date: 08/20/17Order Info: [id number]- 1 - *Hepatic Function PanelOrder Info: 24260-7 - *Lipid Profile CC PCPComments: 12 hours fasting, may have water.[facility] [address] [place], [place], [address] VLDL 19 mg/dL (Normal) Range: 5-40 LDL [...] 200-240 mg/dL Borderline >240 mg/dL High Risk 32-Pym-121850:16 Liver Profile Comments: Order Date: 08/20/17Order Info: 0788- 1 - *Hepatic Function PanelOrder Info: 29595-3 - *Lipid Profile CC PCPComments: 12 hours fasting, may have water.[facility] [address] [facility] [place], [place], [address] D BILI 0.08 mg/dL (Normal) Range: 0.00-0.30 T BILI 0.40 mg/dL (Normal) Range: 0.20-1.00 ALT 17 U/L (Normal) Range: 12-78 ALK P 87 U/L (Normal) Range: 45-117 AST 13 U/L (Abnormal) Range: 15-37 GLOB 3.5 g/dL (Normal) Range: 2.2-4.2 ALB 3.8 g/dL (Normal) Range: 3.4-5.0 Comments: Please note revised Albumin AND Globulin reference rangeeffective 2017. T PROT 7.3 g/dL (Normal) Range: 6.4-8.2 50-Whx-18529:27 Lipid Profile Comments: Order Date: 05/27/17Order Info: 0788-1 - *Hepatic Function PanelOrder Date: 08/26/16Order Info: 54494-3 - *Lipid Profile CC PCPComments: 12 hours fasting, may have water.[facility] [address] [place], [place], [address] VLDL 26 mg/dL (Normal) Range: 5-40 LDL [...] - *Hepatic Function PanelOrder Date: 08/26/16Order Info: 90002-5 - *Lipid Profile CC PCPComments: 12 hours fasting, may have water.[facility] [address] [place], [address] D BILI 0.09 mg/dL (Normal) Range: 0.00-0.30 T BILI 0.40 mg/dL (Normal) Range: 0.20-1.00 ALT 16 U/L (Normal) Range: 12-78 ALK P 89 U/L (Normal) Range: 45-117 AST 16 U/L (Normal) Range: 15-37 GLOB 3.5 g/dL (Normal) Range: 2.2-4.2 ALB 3.9 g/dL (Normal) Range: 3.4-5.0 Comments: Please note revised Albumin AND Globulin reference rangeeffective 2017. T PROT 7.4 g/dL (Normal) Range: 6.4-8.2 :06 Blood Gas Specimen Type Comments: [facility] [place] [address] [place] [address] BLD GAS TYPE ART (Normal) 64-Hom-085368:06 PO2 I-STAT 55 {mmHG} (Abnormal) Comments: [facility] [place] [address] [place], [place] [id number] Range: 75-100 67-Kua-338617:06 SO2 ISTAT 86 % (Abnormal) Comments: [place] [address] [place], [place] [id number] Range: 95-99 57-Wdi-308152:50 Blood Gas Specimen Type Comments: [place] [address] [place], [place] [id number] BLD GAS TYPE ALAINA (Normal) 45-Ayg-118938:50 VBG PO2 I-STAT 31 {mmHg} (Normal) Comments: [place] [address] [place], [place] [address] Range: 25-40 79-Xhk-499009:50 VBG SO2 ISTAT 55 % (Normal) Comments: [place] [address] [place], [place] [id number] Range: 50-70 47-Wdq-455950:47 Blood Gas Specimen Type Comments: [place] [address] [place], [place] [address] BLD GAS TYPE ALAINA (Normal) :47 VBG PO2 I-STAT 32 {mmHg} (Normal) Comments: [facility] [address] [place] [address] Range: 25-40 :47 VBG SO2 ISTAT 58 % (Normal) Comments: [facility] of [address] [place] [address] Range: 50-70 :53 Basic Metabolic Profile (BMP) Comments: Order Date: 02/04/17Order Info: 0667-1 - *BMPOrder Date: 02/04/17Order Info: 88099-6 - *Lipid Profile CC PCPComments: 12 hours fasting, may have water.[facility] [address] [place], [address] GAP 4 (Abnormal) Range: 5-15 CO2 34.0 [...] 02/04/17Order Info: 0184-1 - *CBC with DifferentialComments: Reason:[facility] [address] [place], [address] Absolute Lymph 1.52 {X10_3/ul} (Normal) Range: 0.83-4.51 [...] Info: 0667-1 - *BMPOrder Date: 02/04/17Order Info: 03875-5 - *Lipid Profile CC PCPComments: 12 hours fasting, may have water.[facility] [address] [place], [place], [address] VLDL 32 mg/dL (Normal) Range: 5-40 LDL [...] 200-240 mg/dL Borderline >240 mg/dL High Risk :53 Prothrombin Time w/INR Comments: Order Date: 02/04/17Order Info: 6301-6 - *[facility] [address] [place], [place], [address] INR 1.1 (Normal) PROTIME 13.3 s (Normal) Range: 11.7-14.9 33-Cbv-867366:09 Rapid Flu (16642 x 2) Influenza A Ag neg and b (Normal) :28 Lipid Profile Comments: [facility] [address] [place], [place], [id number] VLDL 33 mg/dL (Normal) Range: 5-40 LDL [...] mg/dL High Risk :28 Liver Profile Comments: [facility] [address] [place], [place], [id number] D BILI 0.10 mg/dL (Normal) Range: 0.00-0.30 T BILI 0.30 mg/dL (Normal) Range: 0.20-1.00 ALT 24 U/L (Normal) Range: 12-78 ALK P 83 U/L (Normal) Range: 50-136 AST 13 U/L (Abnormal) Range: 15-37 GLOB 3.1 g/dL (Normal) Range: 2.3-3.5 ALB 3.7 g/dL (Normal) Range: 3.4-5.0 T PROT 6.8 g/dL (Normal) Range: 6.4-8.2 :25 Basic Metabolic Profile (BMP) Comments: 'TROP' Serial specimen #1, #2, #3, or #4: 1Test performed at:[facility] [address] [facility] [place], [place] [id number] GAP 4 (Abnormal) Range: 5-15 CO2 31.0 [...] <126 mg/dLsuggests IMPAIRED HOMEOSTASIS per A.D.A. criteria. 22-Smp-925023:25 CBC W/Diff, Automated Comments: Test performed at:[facility] [address] [place] [address] Absolute Lymph 1.58 {X10_3/ul} (Normal) [...] 4.2-5.4 WBC 8.5 K/mm3 (Normal) Range: 4.4-11.0 :25 D-Dimer Quantitative (DVT/PE) Comments: Test performed at:[facility] [address] [place] [address] D-DIMER QUANT 0.27 {FEU/ug/m} (Normal) Range: 0.27-0.49 Comments: NORMAL D-Dimer level (<0.50) indicates no DVT or PE. 99-Evr-686309:25 Troponin-I Comments: 'TROP' Serial specimen #1, #2, #3, or #4: 1Test performed at:[facility] [address] [place] [address] TROPONIN-I < 0.02 ng/mL (Normal) Comments: TROPONIN-I EXPECTED VALUES <0.05 NEGATIVE 0.06 - 0.59 AT RISK OF AL > OR = 0.60 SUGGEST AL 43-Gho-477967:30 BMP GAP 5 (Normal) Range: 5-15 CO2 [...] 7-18 GLU 82 mg/dL (Normal) Range: 70-110 98-Isr-732807:30 LIPID VLDL 36 mg/dL (Normal) Range: 5-40 [...] CHOL 307 mg/dL (Abnormal) Comments: <200 mg/dL Hdcriwkze922-994 mg/dL Borderline>240 mg/dL High Risk 30-Bum-942199:30 LIVER BID 0.09 mg/dL (Normal) Range: 0.00-0.30 BIT 0.40 mg/dL (Normal) Range: 0.00-4.00 ALT 18 U/L (Normal) Range: 12-78 ALK 102 U/L (Normal) Range: 50-136 AST 18 U/L (Normal) Range: 15-37 ALB 4.0 g/dL (Normal) Range: 3.4-5.0 TPROT 7.4 g/dL (Normal) Range: 6.4-8.2 21-Oro-137042:00 ABDOULAYE CULTURE-OTHER (01029) Comments: PATIENT NOT FASTINGPERFORMED BY: [facility] Rvxbkh8428 [facility] [id number] Information: SRC:THRT [id number] Result 1 RRF (Normal) Comments: Routine respiratory rhina Upper Respiratory Culture Final report (Normal) 07-Ghr-011703:23 Rapid Strep Test, Office (87498) Rapid Strep Test, Office Negative (Normal) :40 CBCMD ANC 6.6 3/uL (Normal) Range: 2.0-7.7 [...] 4.2-5.4 WBC 8.6 {k/mm3} (Normal) Range: 4.4-11.0 48-Lhm-190016:40 CMP GAP 8 (Normal) Range: 5-15 CO2 [...] 7-18 GLU 89 mg/dL (Normal) Range: 70-110 41-Wco-940312:40 LIPID VLDL 18 mg/dL (Normal) Range: 5-40 LDL 84 mg/dL (Normal) Range: 0-130 CHOL 169 mg/dL (Normal) Comments: <200 mg/dL Fleqehefd605-605 mg/dL Borderline>240 mg/dL High Risk HDL 67 mg/dL (Normal) Comments: Reference RangeHDL <40 mg/dL Low HDL CholesterolHDL >or= 60 mg/dL High HDL Cholesterol TRIG 92 mg/dL (Normal) Comments: Serum Triglycerides Reference IntervalNormal <150 mg/dLBorderline high 150 - 199 mg/dLHigh 200 - 499 mg/ dLVery High > or = 500 mg/dL 60-Mrm-584638:40 VITD 57.3 ng/mL (Normal) Comments: Vitamin D [...] Phelan M.D.May 31, 2012 at 12:54:08 PM [phone] Signed GP/GP If you are the referring physician and would like to consult with theradiologist who provided this interpretation, please contact Leigh Ann Mccaeb at [phone]. If this radiologist is unavailable, yahir guzman directed to another radiologist to assist. If you are a patient with a question regarding this report, pleasecontactyour referring physician directly. Professional Interpretation Provided By: [facility] jonathan, Phone , These documents contain legally [...] on 05/31/12 1259 by ITS IMPORTSign by Daron Phelan MD on 05/31/12 1300 Sign by: Zhane MURRAYDaryn 14-Apr-2012 VITD 43.1 ng/mL Comments: 05/03/12 f/u 11:45 (Normal) Range: 30.0-100.0 Comments: Vitamin D deficiency has been defined by the Speed ofMedicine and an Endocrine Society practice guideline as alevel of serum 25-OH vitamin D less than 20 ng/mL (1,2).The Endocrine Society went on to further define vitamin Dinsufficiency as a level between 21 and 29 ng/mL (2).1. IOM (Speed of Medicine). 2010. Dietary reference intakes for calcium and D. [place]: The National Academies Press.2. Oz MF, Stephanie [place], Leda ARMSTRONG, et al. Evaluation, treatment, and prevention of vitamin D deficiency: an Endocrine Society clinical practice guideline. JCEM. 2010; 96(7): 1911-30.Performed at: [address] [id number] Director: Yumiko Mendez MD, Phone: [phone] 06-Qtk-96087:49 CBCD,SMEAR DIFF RED CELL MORPH SeeNote {NORMAL} [...] {uIU/mL} (Normal) Range: 0.358-3.74 :49 VIT D,25 04701 24.4 ng/mL (Abnormal) Range: 30.0-100.0 Comments: Vitamin D deficiency has been defined by the Speed ofMedicine and an Endocrine Society practice guideline as alevel of serum 25-OH vitamin D less than 20 ng/mL (1,2).The Endocrine Society went on to further define vitamin Dinsufficiency as a level between 21 and 29 ng/mL (2).1. IOM (Speed of Medicine). 2010. Dietary reference intakes for calcium and D. [place]: The National Academies Press.2. Oz MF, Stephanie [place], Leda ARMSTRONG, et al. Evaluation, treatment, and prevention of vitamin D deficiency: an Endocrine Society clinical practice guideline. JCEM. 2010; 96(7): 1911-30.Performed at: [facility] LabNatasha [facility] [id number] [place], [place] [id number] Director: Yumiko Mendez MD, Phone: [phone] VITAMIN B12 1201 pg/mL (Normal) Range: [...] radiologist regarding this report, please call our [id number] line @ Dictated on 11/17/11904 by Zhane MURRAY,Rosa Mariascribed on 11/17/111326 by ITS IMPORTSign by Daryn Phelan MD on 11/17/111326 Sign by: Daryn Phelan MD 57-Sgq-48486:52 BILAT SCRN DIGITAL & CAD Radiology Report [...] radiologist regarding this report, please call our [id number] line @ Dictated on 11/17/11 0940 by Rosa Maria Phelan MDscribed on 0955 by ITS IMPORTSign by Daryn Phelan MD on 11/17/11 0956 Sign by: Daryn Phelan MD Plan of Care Name Dates Details Instructions Asthma, intrinsic, with status asthmaticus : Reviewed 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 Indication: Asthma, intrinsic, with status asthmaticus Atrial fibrillation : Reviewed 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 Indication: Atrial fibrillation Hypertension : Diet, [...] Indication: Hyperlipidemia Planned Observations METABOLIC PANEL, COMPREHENSIVE (36008)Indication: Hypertension On: :22 Request Comments: send results to SARAI Bernal, BY NMR (94804)Indication: Hyperlipidemia On: :21 Request Comments: send results to dr Richey as well CALCIFIDIOL (58809) VIT D 25Indication: Vitamin D deficiency, unspecified On: :21 Request TSH (27952)Indication: Hyperlipidemia On: : Request URINALYSIS, W/ MICRO (99236)Indication: Hypertension On: : Request MICROALBUMIN: CREATININE RATIO (09153) AND (49166)Indication: Hypertension On: : Request CBC W/AUTO DIFF WBC (81485)Indication: Hypertension On: : Request Rapid Flu (93655 x 2)Indication: Wheezing On: 11-Rlx-323189:43 Request METABOLIC PANEL, COMPREHENSIVE (42936)Indication: Asthma, intrinsic, with status asthmaticus On: :45 Request CBC WITH MANUAL DIFF (40724)Indication: Asthma, intrinsic, with status asthmaticus On: :45 Request LIPID PANEL (29731)Indication: Hyperlipidemia On: :45 Request Vitamin D Hydroxy (82733)Indication: Vitamin D deficiency, unspecified On: :45 Request Vitamin D Hydroxy (65406)Indication: Vitamin D deficiency, unspecified On: 74-Aga-019926:57 Request Vitamin D Hydroxy (31070)Indication: Fatigue On: :45 Request VITAMIN B-12 (CYANOCOBALAMIN) (22772)Indication: Fatigue On: :45 Request TSH (39873)Indication: Fatigue On: 41-Hlz-877593:45 Request METABOLIC PANEL, COMPREHENSIVE (28322)Indication: Fatigue On: 69-Ilz-333351:45 Request CBC WITH MANUAL DIFF (06131)Indication: Fatigue On: :45 Request Planned Encounters Medical; 2 Week FU - On: 01-Sep-2018 11:15 [facility] Lydia Copeland DO, DO, Kathleen Planned Procedures Flu Vaccine (Quadrivalent) On: 16-Aug-2018 Intent 55663Lo: Lydia Copeland DO Comments: Lot #[id number]-L dltd, IMDose prefilled syringegiven by: Rachna Lyon LPN.VIS reviewed and ABN signed Lydia Copeland DO Radiology - Hand - On: 16-Aug-2018 Intent BilateralBy: Min DO, Lydia Min DO, Lydia X-RAY OF RIGHT HIP, ONE VIEW On: 16-Aug-2018 Intent (00543)By: Lydia Copeland DO DO, Lydia Radiology - Hip - LeftBy: On: 16-Aug-2018 Intent Min DOLydia Min DO, Lydia Radiology - Lumbar SpineBy: On: 16-Aug-2018 Intent Min DOLydia Min DO, Lydia X-RAY LEFT SHOULDER, 2+ VIEWS On: 16-Aug-2018 Intent (73726)By: Lydia Copeland DO DO, Lydia Radiology - Shoulder - On: 16-Aug-2018 Intent RightBy: Lydia Copeland DO DO, Lydia Aerosol Treatment (52339)By: On: 11-Nov-2016 Intent Dena Hurd LPN Solu -Medrol Injection, 125 mg On: 11-Nov-2016 Intent (J2930)By: Octavia Isabel CNP Comments: lot: [id number]: 03/08site/route: LGM/IMamt: 2mLVIS signed when applicableChelsea, SKULL GRINDER Aerosol Treatment (84219)By: On: 11-Nov-2016 Intent Octavia Isabel CNP Spirometry (94054)By: Chalo On: 11-Nov-2016 Intent Octavia BLANKENSHIP CHEST XRAY, PA & LATERAL On: 17-Sep-2016 Intent (23634)By: Shekhar Sharpe MD Solu -Medrol Injection, 125 mg On: 17-Sep-2016 Intent (J2930)By: Shekhar Sharpe MD Comments: solumedrollot:[id number]:03/08site:lt glutroute:IMdose:125mgD.ALYSHA Harris MAMMOGRAM, SCREENING, BOTH On: 29-Jul-2016 Intent BREAST (77144)By: Lydia Copeland DO, DO, Kathleen X-RAY OF LUMBAR SPINE, AP VIEW On: 29-Jul-2016 Intent (05188)By: Lydia Copeland DO, DO, Kathleen Rocephin Injection, 2 Gram On: 09-Aug-2015 Intent (J0696)By: Jeanne Quinones DO Comments: ROCEPHINlot:[id number]:2*1*2018site:L and R glutroute:IMdose:2gDEMICK, SMA SPECIMEN HNDLNG/TRNSPRT, OFFC On: 31-Jan-2013 Intent > LAB (89853)By: JOSE Romo Aerosol Treatment (64021)By: On: 30-Aug-2012 Intent Chalo BLANKENSHIP, Kirstie Eprescribed prescriptions On: 30-Aug-2012 Intent (G8553)By: Magdalena Higgins LPN CT - ChestBy: Jeanne Quinones DO On: 17-May-2012 Intent Comments: noncontrast high resolution FLU VAC, SPLIT, >3 YEARS, On: 17-May-2012 Intent INTRAMUSC (14681)By: Heath MONTOYA, Comments: [email or web address] arm, IM prefilledMegan Laura Starr IMMUNIZ ADMNIN, 1 VAC, On: 17-May-2012 Intent SNGL/COMBO (91914)By: Laura Joe LPN TDAP VACCINE >7 IM (24729)By: On: 18-Jan-2012 Intent Suki Mandujano Comments: Lot:[id number]:08/14/13Amt:prefilledRoute:IMSite:left deltGiven By: LINDSAY Yee Inhaler Demo (72557)By: Joni On: 18-Jan-2012 Intent Jeanne WELLINGTON Radiology - Chest- PA and On: 18-Jan-2012 Intent LatBy: Jeanne Quinones DO FLU VAC, SPLIT, >3 YEARS, On: 18-Jan-2012 Intent INTRAMUSC (00436)By: Nazia, Comments: 2010 Suki PFT - CompleteBy: Joni WELLINGTON, On: 03-Nov-2011 Intent Jeanne Garcia Spirometry (93546)By: Joni On: 03-Nov-2011 Intent Jeanne WELLINGTON Comments: good effort and curve mild restriction IMMUNIZ ADMNIN, 1 VAC, On: 03-Nov-2011 Intent SNGL/COMBO (37486)By: Heath Comments: Lot #[id number]-L arm, IMDose 0.5mlgiven by:Laura Sanchez LPN PNEUM VAC ADLT/IMUMNOSPR, On: 03-Nov-2011 Intent SBC/INTRM (12201)By: Laura Joe LPN DXA, BONE DENSITY, AXIAL On: 03-Nov-2011 Intent SKELETON (05846)By: Joni WELLINGTON, Comments: postmenopausal without etrogen Jeanne A MAMMOGRAM, SCREENING, BOTH On: 03-Nov-2011 Intent BREASTS (43258)By: Jeanne Quinones DO Planned Medications INJECTION, CEFTRIAXONE SODIUM, PER 250 MG Ordered: 09-Aug-2015 Pending Jeanne Quinones DO INJECTION, METHYLPREDNISOLONE SODIUM SUCCINATE, UP TO 125 MG Ordered: 17-Sep-2016 Pending Shekhar Sharpe MD INJECTION, METHYLPREDNISOLONE SODIUM SUCCINATE, UP TO 125 MG Ordered: 11-Nov-2016 Pending Octavia Isabel CNP Instructions Name Dates Details BMI 34.0-34.9,adult : How to access health [...] Instructions Indication: Hyperlipidemia Encounters Office Visit On: 16-Aug-2018 11:37 Encounter Reason: [...] and no heart issues sees tito in nov- she is going to start working harder on diet again less carbs and more protein- saw kathie about her kidney and is ok per patient, [ADDITIONAL REASON] Follow up tests - Date: (labs 03/2012Had PFTs and started on inhalerscxr (says she had it done 3 weeks ago at [facility] -- called med rec to have [...] labs in jul- had disc surgery aug [address] Otero and doing alot better- [...] (780.79), hypoxia [facility] Payers Deepti GUTIERREZ/BSMedicare Secondary UnitAdriana Dill; a guarantor
--- OUTSIDE RECORDS SUMMARY | 2018-09-28 06:30 | XMS RPT_ITS | Continuity of Care Document ---
:1955 Author Organization [facility] Address [facility] [address] Phone Care Team Providers Name Role Phone [...] Sent by Dr. Mckee, pt went to [place] in [place] Dr. Jose Carlos Gates did abaltion at [facility] Status: Active screening Status: Active Sinusitis, acute (J01.90, 461.9) Status: Active Sleep apnea (G47.30, 780.57) Comments: will contact [facility] Status: Active Vitamin D deficiency, unspecified (E55.9, [...] 15-Jan-2015 End : 29-Jul-2016 Inactive CO-Q 10 [place]-3 Fish Oil Oral Capsule 1 Capsule qd [...] Comments: See Note; NOTES: [facility] [address] [place] [address] OFFICE VISIT Date of Service: 07/12/18 MR#: [id number] Acct: [id number] Name: ADRIANA GALVAN Rep #: [id number] : 1955 Provider: Ernesto Webster MD Age/Sex: 63/F [place] [facility] [place] Status: Signed Assessment AND Plan Problems 1. 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 [place] [address] OFFICE VISIT Date of Service: 04/22/18 MR#: [id number] Acct: [id number] Name: ADRIANA DILL Rep #: [id number] : 1955 Provider: Stanley Richey MD Age/Sex: 63/F [place] [facility] [place] Status: Signed HPI HPI Chief Complaint: Routine f/u Details: Details: Referring physician: Dr. Jeanne Quinones It was a pleasure seeing your patient, Adriana Dill, today in our office. She Is a 63-year-old female and is returning for followup of her atrial fibrillation status post pulmonary vein isolation at the [facility] in 2003, mild coronary disease status post [...] underwent left and right heart catheterization at [facility] by myself on 03/05/17 which [...] QDAY #90 tab 11/10/17 [Rx Confirmed 04/22/18] [facility] Medical History Long-term use of high- risk [...] History Brother CAD (coronary artery disease) from [place] age 52 Father Dementia Mother Cancer Social [...] Walk Test Result: Comments: See Note; NOTES: [facility] Pulmonary Services/Neurology [address] [place] [address] MR#: [id number] Acct: [id number] Name: ADRIANA DILL Rep #: [id number] : 0 1955 63 From: Ernesto Webster MD Referring Dr: Yuni Banks NP Date: Ordering Dr: Sex: F C Location: PSN PSN 6 Minute Walk Test - 6 Minute Walk Test 6 Minute Walk Test: 6 Minute Walk Test PS N:6-Minute Walk Test Start: 02/17/18 08:49 Freq: Status: Active Protocol: RESP.6MINW Document 02/17/18 08:30 EW (Rec: 02/17/18 08:52 EW [id number]) 6 Minute Walk Test Date Performed 02/17/18 [...] closely given level of desaturation. 01/20 10/07 6221 <Electronically signed by Ernesto Webster MD> Date Ernesto Webster MD CC: Date Dictated: 02/17/18 1040 Date Transcribed: 02/17/181039 Compensation Administrator: Ernesto Webster Signed 12-Jan-2018 Pulmonary Visit Report Result: Comments: See Note; NOTES: [facility] [address] [place] [address] OFFICE VISIT Date of Service: 01/11/18 MR#: [id number] Acct: [id number] Name: ADRIANA GALVAN Rep #: [id number] : 1955 Provider: Yuni Banks Age/Sex: 63/F [place] [facility] [place] Status: Signed Assessment AND Plan 1. MEGHAN [...] any inhalers. She has not tried any aduu-goi-drfavyw medications. She is pleased that she continues [...] #90 tab 11/10/17 [Rx Confirmed 12/20 01/05] [facility] Medical History Long-term use of high-risk [...] History Brother CAD (coronary artery disease) from [place] age 52 Father Dementia Mother Cancer Social [...] 01/12/18 1520 <Electronically signed by Yuni Banks CONCRETE PAVER-C&am p;#62; Date Yuni Stringer Signature: Date (if applicable) CC: Lydia Copeland 21-Dec-2017 Pulmonary Function Report Comp Result: Comments: See Note; NOTES: [facility] Pulmonary Services/Neurology [address] [place] [address] MR#: [id number] Acct: [id number] Name: ADRIANA DILL Rep #: [id number] : 62 From: Ernesto Webster MD Referring Dr: Ernesto Webster MD Status: REG CLI Ordering Dr: Date: Location: [facility] Sex: F C COMPLETE PULMONARY FUNCTION TEST INTERPRETATION Brief HPI: Patient is a 62 year old female, currently under the care of myself, who presents to [facility] for complete pulmonary function tests secondary [...] DO Date Dictated: 12/21/171437 Date Transcribed: 12/21/171437 Compensation Administrator: DAVID Signed 19-Oct-2017 Cardiology Visit Report Result: Comments: See Note; NOTES: [facility] [address] [place] [address] OFFICE VISIT Date of Service: 10/19/17 MR#: [id number] Acct: [id number] Name: ADRIANA DILL Rep #: [id number] : 1955 Provider: Stanley Richey MD Age/Sex: 62/F [place] [facility] [place] Status: Signed HPI 3 M FU: Chief Complaint: Routine follow-up Details: Referring physician: Dr. Jeanne Quinones I t was a pleasure seeing your patient, Adriana Dill, today in our office. She Is a 62-year-old female and is returning for followup of her atrial fibrillation status post pulmonary vein isolation at the [facility] in 2003, mild coronary disease status post [...] underwent left and right heart catheterization at [facility] by myself on 03/05/17 which demonstrated normal [...] CAD (coronary artery disease) Di ed from [place] age 52 Social History Smoking Status: Former [...] the patient be referred to Dr. Magaña [facility] for further atrial fibrillation evaluation and possible [...] of Care Code Off vis,est,level 3 10/19/17 8187 <Electronically signed by Stanley Richey MD> Date Stanley Richey MD Cosigner Signature: Date (if applicable) CC: 11-Oct-2017 Echocardiogram Complete Result: Comments: See Note; NOTES: [facility] Cardiovascular Services [address] [place] [address] Echo Complete 10/07/17 1045 MR#: [id number] Acct: [id number] Name: ADRIANA DILL ep #: [id number] : 1955 62 From: Stanley Richey MD Attending Dr: Stanley Richey MD Status: REG CLI Ordering Dr: Stanley Richey MD Date: 10/07/17 Location: [facility] Sex: F C Admitted: Reason For [...] Dictated: 10/07/17 1045 Date Transcribed: 10/11/17 1039 Compensation Administrator: Signed 23-Jul-2017 6 Minute Walk Test Result: Comments: See Note; NOTES: [facility] Pulmonary Services/Neurology [address] [place] [address] MR#: [id number] Acct: [id number] Name: ADRIANA DILL Rep #: [id number] : 0 1955 62 From: Ernesto Webster MD Referring Dr: Ernesto Webster MD Date: Ordering Dr: Sex: F C Location: PSN PSN 6 Minute Walk Test - 6 Minute Walk Test 6 Minute Walk Test: 6 Minute Walk Test PSN:6- Minute Walk Test Start: 07/21/17 09:24 Freq: Status: Active Document 07/21/17 09:05 [facility] (Rec: 07/21/17 09:28 [facility] [id number]) 6 Minute Walk Test Date Performed 07/21/17 [...] CC: Date Dictated: 07/23/17711 Date Transcribed: 07/23/17711 Compensation Administrator: Ernesto Webster Signed 25-Apr-2017 6 Minute Walk Test Result: Comments: See Note; NOTES: [facility] Pulmonary Services/Neurology [address] [place] [address] MR#: [id number] Acct: [id number] Name: ADRIANA DILL Rep #: [id number] : 0 1955 62 From: Michael Segal DO Referring Dr: Yuni Banks CONCRETE PAVER Date: Ordering Dr: Sex: F C Location: PSN PSN 6 Minute Walk Test - 6 Minute Walk Test 6 Minute Walk Test: 6 Minute Walk Test PSN :6-Minute Walk Test Start: 04/23/17 11:39 Freq: Status: Active Document 04/23/17 11:00 EW (Rec: 04/23/17 11:47 EW [id number]) 6 Minute Walk Test Date Performed 04/23/17 [...] Dictated: 04/25/17 1120 Date Transcribed: 04/25/17 1120 Compensation Administrator: Michael Segal DO Signed 18-Mar-2017 Pulmonary Function Report Comp Result: Comments: See Note; NOTES: [facility] Pulmonary Services/Neurology [address] [place] [address] MR#: [id number] Acct: [id number] Name: ADRIANA DILL Rep #: [id number] : 62 From: Ernesto Webster MD Referring Dr: Stanley Richey MD Status: REG CLI Ordering Dr: Date: Location: N Sex: F C Pulmonary Function Report Comp Pulmonary Function Report Comp: COMPLETE P ULMONARY FUNCTION TEST INTERPRETATION Brief HPI: Patient is a 62 year old female, currently under the care of Dr. Richey, who presents to [facility] for complete pulmonary fu nction tests [...] Date Dictated: 03/18/17 1610 Date Transcribed: 03/18/171609 Compensation Administrator: DAVID Signed 05-Mar-2017 Echo Transesophageal (JOÃO) Result: Comments: See Note; NOTES: [facility] Cardiovascular Services [address] [place] [address] Echo Transesophageal (JOÃO) 03/05/17 1009 MR#: [id number] Acct: [id number] Name: ADRIANA MAURICE Rep #: [id number] : 1955 62 From: Stanley Richey MD Attending Dr: Stanley Richey MD Status: REG CLI Ordering Dr: Stanley Richey MD Date: 03/05/17 Location: [facility] Sex: F C Admitted: Reason For Study: Aortic stenosis Medication JOÃO probe passed without difficulty. Fcuepxyzu29gh gargled and swallowed. Versed 2 mg given [...] Copeland M.D. Performed By: Shayna Pillai, YESSY [facility] y signed by: Stanley Richey MD on 03/05/2017 02:45 PM 03/05/17 1445 Date Stanley Richey MD CC: Stanley Richey MD; Lydia Min [place] Date Dictated: 03/05/17 1009 Date Transcribed: 03/05/17 1445 Compensation Administrator: Signed 17-Sep-2016 Chest PA and Lateral Result: Comments: See Note; NOTES: [facility] Imaging Services [address] [place] [address] Verdana 4d Chest PA and Lateral MR#: [id number] Acct: [id number] Name: ADRIANA DILL Rep #: [id number] : 1955 F 61 From: Daryn Phelan MD PCP: Lydia Copeland DO Status: REG CLI Study: Chest PA and Lateral Date of Exam: 09/17/16 Exam# [id number] Ordering Dr: Shekhar Sharpe Y: X-RAY CHEST [...] has been essentially no change since prior karile dy. Electronically Signed: Daryn Phelan MD at 15:02 EST Tel [phone], Service support [phone], CC: Lydia Copeland ; Shekhar Sharpe Compensation Administrator: Signed 26-Aug-2016 Echocardiogram Complete Result: Comments: See Note; NOTES: [facility] Cardiovascular Services [address] [place] [address] Echo Complete 08/26/16 1131 MR#: [id number] Acct: [id number] Name: ADRIANA DILL ep #: [id number] : 1955 61 From: Stanley Richey MD Attending Dr: Stanley Richey MD Status: REG CLI Ordering Dr: Stanley Richey MD Date: 08/26/16 Location: [facility] Sex: F C Admitted: Reason For [...] Performed By : Lina Bee RDCS 08/26/16 1558 Date Stanley Richey MD CC: Stanley Richey MD ; Lydia Copeland DO Date Dictated: 08/26/16 1131 Date Transcribed: 08/26/16 1555 Compensation Administrator: Signed 18-Aug-2016 Bilat Scrn Digital AND CAD Result: Comments: See Note; NOTES: [facility] Imaging Services [address] [place] [address] Verdana 4d Bilat Scrn Digital AND CAD MR#: [id number] Acct: [id number] Name: ADRIANA DILL Rep #: [id number] : 1955 F 61 From: Calixto Main MD PCP: Lydia Copeland DO Status: REG CLI Study: Bilat Scrn Digital AND CAD Date of Exam: 08/18/16 Exam# [id number] Ordering Dr: Jose Alfredo Copeland DO MAMMOGRAPHY [...] delay biopsy of a clinically suspicious abnormality. [id number] Electronically Signed: Modesto Main MD at 10:13 EST Tel , Service support [phone], CC: Lydia Copeland DO Compensation Administrator: Signed 29-Jul-2016 L/S Spine Min 4 Views Result: Comments: See Note; NOTES: [facility] Imaging Services [address] [place] [address] Verdana 4d L/S Spine Min 4 Views MR#: [id number] Acct: [id number] Name: ADRIANA DILL Re p #: [id number] : 1955 F 61 From: Juvenal Zarate MD PCP: Lydia Copeland DO Status: REG CLI Study: L/S Spine Min 4 Views Date of Exam: 07/29/16 Exam# [id number] Ordering Dr: Lydia Copeland STUDY: X-RAY - [...] MD at 17:01 EST , Service support [phone], CC: Lydia Copeland DO Compensation Administrator: Signed 25-Dec-2014 Emergency Department Summary Result: Comments: See Note; NOTES: [facility] Medical Records Department [address] [place] [address] Emergency Department Summary MR#: [id number] Acct: [id number] Name: ADRIANA DILL Rep #: [id number] : 1955 59 From: Gema Marr PCP: Jeanne Quinones DO Status: [facility] ER DATE OF SERVICE: 12/17/2014 HISTORY OF [...] Татьяна Rhoades C: Jeanne Quinones DO T: [facility] JOB: [id number] 12/25/14 0056 <Electronically signed by Gema Marr > Date ___ Gema Marr CC: Jeanne Fast DO Date Dictated: 12/17/14 1248 Date Transcribed: 12/17/14 1248 Compensation Administrator: Signed 18-Dec-2014 12 Lead Electrocardiogram Result: Comments: See Note; NOTES: [facility] Cardiovascular Services [address] [place] [address] 12 Lead EKG 12/17/149 MR#: [id number] Acct: [id number] Name: KENNETH DILL Rep #: [id number] : 1955 59 From: Sj Rowe MD [...] ECG Confirmed by SJ ROWE MD ([id number]), content editor MATHIEU SIMON ([id number]) on 12/18/2014 2 :39:37 PM Referred By: OLIVA Confirmed By:SJ ROWE MD 12/18/14 1439 Date Sj Rowe MD CC: Jeanne Fast DO Date Dictated: 12/17/14 1129 Date Transcribed: 12/17/14 112 Compensation Administrator: Signed 17-Dec-2014 Discharge Instruction Result: Comments: See Note; NOTES: [facility] Medical Records Department [address] [place] [address] Discharge Instruction 12/17/14 1244 MR#: [id number] Acct: [id number] Name: ADRIANA DILL Rep #: [id number] : 1955 59 From: Gema Marr PCP: [...] and Lateral Result: Comments: See Note; NOTES: [facility] Imaging Services [address] [place] [address] Radiology Report MR#: [id number] Acct: [id number] Name: ADRIANA DILL Kenna Rep #: [id number] : 1955 F 59 From: Daryn Phelan MD PCP: Jeanne Quinones DO Status: REG ER Study: Chest PA and Lateral Date of Exam: 12/17/14 Exam# [id number] Ordering Dr: Gema Marr STUDY: X-RAY CHEST [...] Daryn Phelan MD at 12:26 EDT Tel [phone], Service support [phone], RAD/Chest PA and Lateral IMPRESSION: There is elevation of the right hemidiaphragm with linear atelectasis at the right lung base. Electronically Signed: Daryn Phelan MD at 12:26 EDT Tel [phone], Service support [phone], Fax CC: Gema Quinones DO Compensation Administrator: Signed 08-Aug-2014 Echocardiogram Complete Result: Comments: See Note; NOTES: [facility] Cardiovascular Services [address] [place] [address] Echo Complete 08/08/14 1245 MR#: [id number] Acct: [id number] Name: REINIER DILL Rep #: [id number] : 1955 59 From: Stanley Richey MD Attending Dr: Stanley Richey MD Status: REG CLI Ordering Dr: Stanley Richey MD Date: 08/08/14 Location: [facility] Sex: F C Admitted: Procedure This [...] Dictated: 08/08/14 1245 Date Transcribed: 08/08/14 1607 Compensation Administrator: Signed Family History Unknown Family Member Name [...] Primary Occupation Comments: 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 Status: Active Smoking Status Name Dates Details Former smoker Vital Signs Date Test Result Details 39-Hln-991541:45 Pulse 65 /min Comments: Pattern: Regular Respiration [...] 2.02 m2 Results Date Description Value Details 35-Drs-324961:40 Basic Metabolic Profile (BMP) Comments: [facility] [address] [place], [place], [address] GAP 8 (Normal) Range: 5-15 CO2 31.0 [...] Comments: Please note revised GLUCOSE reference range /02/2018. 06-Xtf-489697:40 CBC W/Diff, Automated Comments: [facility] [address] [place], [place], [address] Absolute Lymph 2.08 {X10_3/ul} (Normal) Range: 0.83-4.51 [...] 4.2-5.4 WBC 7.9 K/mm3 (Normal) Range: 4.4-11.0 28-Flr-433464:40 Microalb:Creat Ratio,Random UR Comments: [facility] [address] [place], [address] MALB:CREAT 7.6 {mg/g_CRE} (Normal) MICROALBUMIN,UR 5.1 mg/L (Normal) UR CREAT 66.90 mg/dL (Normal) 78-Elh-814452:40 Thyroid Stim Hormone (TSH) Comments: [facility] [address] [place] [address], [address] TSH 1.50 {uIU/mL} (Normal) Range: 0.358-3.74 01-Beg-959623:40 Urinalysis, Complete Comments: How was Urine Obtained? CLEAN [facility] [address] [place], [address] MUCUS, URINE 0 SEEN {/hpf} [...] (Normal) CLARITY Clear (Normal) COLOR Yellow (Normal) 82-Wlq-905849:40 Vitamin D,25 Hydroxy Comments: [facility] [address] [place], [address] Vitamin D 25-OH 24.2 ng/mL (Abnormal) Range: 29.95-100.01 Comments: Vitamin D 25(OH) Status Range Deficiency <20 ng/mL (50nmol/L) Insuffciency 20 - 30 ng/mL (50 - 75 nmol/L) Sufficiency 30 - 100 ng/mL (75 - 250 nmol/L) Toxicity >100 ng/mL (>250 nmol/L) 21-Apr-20188:27 Lipid Profile Comments: [facility] [address] [facility] [facility] [address] [place], [place], [address] VLDL 9 mg/dL (Normal) Range: 5-40 LDL [...] mg/dL High Risk 21-Apr-20188:27 Liver Profile Comments: [facility] [address] [place], [address] D BILI 0.12 mg/dL (Normal) Range: 0.00-0.30 T BILI 0.30 mg/dL (Normal) Range: 0.20-1.00 ALT 14 U/L (Normal) Range: 13-56 ALK P 89 U/L (Normal) Range: 45-117 AST 13 U/L (Abnormal) Range: 15-37 GLOB 3.4 g/dL (Normal) Range: 2.2-4.2 ALB 3.6 g/dL (Normal) Range: 3.2-5.0 T PROT 7.0 g/dL (Normal) Range: 6.4-8.2 95-Wtn-643182:16 Lipid Profile Comments: Order Date: 08/20/17Order Info: 0788- 1 - *Hepatic Function PanelOrder Info: 17276-9 - *Lipid Profile CC PCPComments: 12 hours fasting, may have water.[facility] [address] [facility] [place], [place], [address] VLDL 19 mg/dL (Normal) Range: 5-40 LDL [...] 200-240 mg/dL Borderline >240 mg/dL High Risk 61-Kgd-896012:16 Liver Profile Comments: Order Date: 08/20/17Order Info: 0788- 1 - *Hepatic Function PanelOrder Info: 38862-5 - *Lipid Profile CC PCPComments: 12 hours fasting, may have water.[facility] [address] [facility] [place], [place], [address] D BILI 0.08 mg/dL (Normal) Range: 0.00-0.30 T BILI 0.40 mg/dL (Normal) Range: 0.20-1.00 ALT 17 U/L (Normal) Range: 12-78 ALK P 87 U/L (Normal) Range: 45-117 AST 13 U/L (Abnormal) Range: 15-37 GLOB 3.5 g/dL (Normal) Range: 2.2-4.2 ALB 3.8 g/dL (Normal) Range: 3.4-5.0 Comments: Please note revised Albumin AND Globulin reference rangeeffective 2017. T PROT 7.3 g/dL (Normal) Range: 6.4-8.2 93-Elm-80558:27 Lipid Profile Comments: Order Date: 05/27/17Order Info: 0788-1 - *Hepatic Function PanelOrder Date: 08/26/16Order Info: 69859-3 - *Lipid Profile CC PCPComments: 12 hours fasting, may have water.[facility] [place] [address] [place], [place], [address] VLDL 26 mg/dL (Normal) Range: 5-40 LDL [...] - *Hepatic Function PanelOrder Date: 08/26/16Order Info: 43058-8 - *Lipid Profile CC PCPComments: 12 hours fasting, may have water.[facility] [address] [place], [address] D BILI 0.09 mg/dL (Normal) Range: 0.00-0.30 [...] 6.4-8.2 :06 Blood Gas Specimen Type Comments: [facility] [place] [address] [place] [address] BLD GAS TYPE ART (Normal) 85-Ska-656850:06 PO2 I-STAT 55 {mmHG} (Abnormal) Comments: [facility] [place] [address] [place], [place] [address] Range: 75-100 56-Tez-499675:06 SO2 ISTAT 86 % (Abnormal) Comments: [place] [address] [place], [place] [address] Range: 95-99 17-Bgx-081503:50 Blood Gas Specimen Type Comments: [place] [address] [place], [place] [address] BLD GAS TYPE ALAINA (Normal) 33-Kvz-303343:50 VBG PO2 I-STAT 31 {mmHg} (Normal) Comments: [place] [address] [place], [place] [address] Range: 25-40 22-Vhv-076752:50 VBG SO2 ISTAT 55 % (Normal) Comments: [place] [address] [place], [place] [address] Range: 50-70 31-Fdf-461297:47 Blood Gas Specimen Type Comments: [place] [address] [place], [place] [address] BLD GAS TYPE ALAINA (Normal) :47 VBG PO2 I-STAT 32 {mmHg} (Normal) Comments: [facility] [address] [place] [address] Range: 25-40 :47 VBG SO2 ISTAT 58 % (Normal) Comments: [facility] [address] [place] [address] Range: 50-70 :53 Basic Metabolic Profile (BMP) Comments: Order Date: 02/04/17Order Info: 0667-1 - *BMPOrder Date: 02/04/17Order Info: 74851-6 - *Lipid Profile CC PCPComments: 12 hours fasting, may have water.[facility] [address] [place], [address] GAP 4 [...] 02/04/17Order Info: 0184-1 - *CBC with DifferentialComments: Reason:[facility] [address] [place], [address] Absolute Lymph 1.52 {X10_3/ul} (Normal) Range: 0.83-4.51 [...] Info: 0667-1 - *BMPOrder Date: 02/04/17Order Info: 59050-3 - *Lipid Profile CC PCPComments: 12 hours fasting, may have water.[facility] [address] [place], [place], [address] VLDL 32 mg/dL (Normal) Range: 5-40 LDL [...] Comments: Order Date: 02/04/17Order Info: 6301-6 - [facility] [address] [place], [place], [address] INR 1.1 (Normal) PROTIME 13.3 s (Normal) Range: 11.7-14.9 19-Jaj-098983:09 Rapid Flu (84292 x 2) Influenza A Ag neg and b (Normal) :28 Lipid Profile Comments: [facility] [address] [place], [place], [address] VLDL 33 mg/dL (Normal) Range: 5-40 LDL [...] mg/dL High Risk :28 Liver Profile Comments: [facility] [address] [place], [place], [address] D BILI 0.10 mg/dL (Normal) Range: 0.00-0.30 [...] #1, #2, #3, or #4: 1Test performed at:[facility] [address] [facility]. [place], [place] [address] GAP 4 (Abnormal) Range: 5-15 CO2 31.0 [...] <126 mg/dLsuggests IMPAIRED HOMEOSTASIS per A.D.A. criteria. 73-Meb-159245:25 CBC W/Diff, Automated Comments: Test performed at:[facility] [address] [facility] [place] [place] [address] Absolute Lymph 1.58 {X10_3/ul} (Normal) [...] :25 D-Dimer Quantitative (DVT/PE) Comments: Test performed at:[facility] [address] [place] [address] D-DIMER QUANT 0.27 {FEU/ug/m} (Normal) Range: 0.27-0.49 Comments: NORMAL D-Dimer level (<0.50) indicates no DVT or PE. 34-Fjv-811395:25 Troponin-I Comments: 'TROP' Serial specimen #1, #2, #3, or #4: 1Test performed at:[facility] [address] [place] [address] TROPONIN-I < 0.02 ng/mL (Normal) Comments: TROPONIN-I EXPECTED VALUES <0.05 NEGATIVE 0.06 - 0.59 AT RISK OF NV > OR = 0.60 SUGGEST [place] 53-Pcw-154060:30 BMP GAP 5 (Normal) Range: 5-15 CO2 [...] 7-18 GLU 82 mg/dL (Normal) Range: 70-110 98-Gxk-099564:30 LIPID VLDL 36 mg/dL (Normal) Range: 5-40 [...] CHOL 307 mg/dL (Abnormal) Comments: <200 mg/dL Tbegkfdrz345-628 mg/dL Borderline>240 mg/dL High Risk 25-Xqj-086046:30 LIVER BID 0.09 mg/dL (Normal) Range: 0.00-0.30 BIT 0.40 mg/dL (Normal) Range: 0.00-4.00 ALT 18 U/L (Normal) Range: 12-78 ALK 102 U/L (Normal) Range: 50-136 AST 18 U/L (Normal) Range: 15-37 ALB 4.0 g/dL (Normal) Range: 3.4-5.0 TPROT 7.4 g/dL (Normal) Range: 6.4-8.2 65-Fcu-939827:00 ABDOULAYE CULTURE-OTHER ([id number]) Comments: PATIENT NOT FASTINGPERFORMED BY: RICH [facility] [id number] [facility] [id number] Information: SRC:THRT [id number] Result 1 RRF (Normal) Comments: Routine respiratory rhina Upper Respiratory Culture Final report (Normal) 18-Kum-[id number]:23 Rapid Strep Test, Office (85377) Rapid Strep Test, Office Negative (Normal) :40 [...] 4.2-5.4 WBC 8.6 {k/mm3} (Normal) Range: 4.4-11.0 10-Iqu-764914:40 CMP GAP 8 (Normal) Range: 5-15 CO2 [...] 7-18 GLU 89 mg/dL (Normal) Range: 70-110 90-Qsb-548111:40 LIPID VLDL 18 mg/dL (Normal) Range: 5-40 LDL 84 mg/dL (Normal) Range: 0-130 CHOL 169 mg/dL (Normal) Comments: <200 mg/dL Ovduxgsrj466-368 mg/dL Borderline>240 mg/dL High Risk HDL 67 mg/dL (Normal) Comments: Reference RangeHDL <40 mg/dL Low HDL CholesterolHDL >or= 60 mg/dL High HDL Cholesterol TRIG 92 mg/dL (Normal) Comments: Serum Triglycerides Reference IntervalNormal <150 mg/dLBorderline high 150 - 199 mg/dLHigh 200 - 499 mg/ dLVery High > or = 500 mg/dL 34-Njd-715561:40 VITD 57.3 ng/mL (Normal) Comments: Vitamin D [...] Phelan M.D.May 31, 2012 at 12:54:08 PM [id number] Signed GP/GP If you are the referring physician and would like to consult with theradiologist who provided this interpretation, please contact Leigh Ann Mccabe at [phone]. If this radiologist is unavailable, yahir guzman directed to another radiologist to assist. If you are a patient with a question regarding this report, pleasecontactyour referring physician directly. Professional Interpretation Provided By: [facility] jonathan, Phone , These documents contain [...] D deficiency has been defined by the [place] [employer] and an Endocrine Society practice guideline as alevel of serum 25-OH vitamin D less than 20 ng/mL (1,2).The Endocrine Society went on to further define vitamin Dinsufficiency as a level between 21 and 29 ng/mL (2).1. IOM ([place] [employer]). 2010. Dietary reference intakes for calcium and D. [place]: The National Academies Press.2. Oz MF, Stephanie [place], Leda ARMSTRONG, et al. Evaluation, treatment, and prevention of vitamin D deficiency: an Endocrine Society clinical practice guideline. JCEM. 2010; 96(7): 1911-30.Performed at: [address] [id number] Director: Yumiko Mendez MD, Phone: [phone] 09-Jik-39183:49 CBCD,SMEAR DIFF RED CELL MORPH SeeNote {NORMAL} [...] {uIU/mL} (Normal) Range: 0.358-3.74 :49 VIT D,25 79707 24.4 ng/mL (Abnormal) Range: 30.0-100.0 Comments: Vitamin D deficiency has been defined by the [place] [employer] and an Endocrine Society practice guideline as alevel of serum 25-OH vitamin D less than 20 ng/mL (1,2).The Endocrine Society went on to further define vitamin Dinsufficiency as a level between 21 and 29 ng/mL (2).1. IOM ([place] [employer] [place]). 2010. Dietary reference intakes for calcium and D. [place]: The National Academies Press.2. Oz MF, Stephanie [place], Leda ARMSTRONG, et al. Evaluation, treatment, and prevention of vitamin D deficiency: an Endocrine Society clinical practice guideline. JCEM. 2010; 96(7): 1911-30.Performed at: [facility] [id number] [place], [place] [id number] Director: Yumiko Mendez MD, Phone: [phone] VITAMIN B12 1201 pg/mL (Normal) Range: [...] radiologist regarding this report, please call our [id number] line @ Dictated on 11/17/11904 by Zhane MURRAY,Rosa Mariascribed on 11/17/111326 by ITS IMPORTSign by Daryn Phelan MD on 11/17/111326 Sign by: Daryn Phelan MD 62-Hkr-19634:52 BILAT SCRN DIGITAL & CAD Radiology Report [...] radiologist regarding this report, please call our [id number] line @ Dictated on 11/17/11 0940 by Rosa Maria Phelan MDscribed on 0955 by ITS IMPORTSign by Daryn Phelan MD on 11/17/11 0956 Sign by: Daryn Phelan MD Plan of Care Name Dates Details Instructions Asthma, intrinsic, with status asthmaticus : Reviewed Geophysicist Letter Indication: Asthma, intrinsic, with status asthmaticus Atrial fibrillation : Reviewed Geophysicist Letter Indication: Atrial fibrillation Hypertension : Diet, [...] Indication: Hyperlipidemia Planned Observations METABOLIC PANEL, COMPREHENSIVE (41116)Indication: Hypertension On: :22 Request Comments: send results to SARAI Bernal, BY NMR (10779)Indication: Hyperlipidemia On: :21 Request Comments: send results to dr Richey as well CALCIFIDIOL (67075) VIT D 25Indication: Vitamin D deficiency, unspecified On: :21 Request TSH ([id number])Indication: Hyperlipidemia On: : Request URINALYSIS, W/ MICRO (44722)Indication: Hypertension On: : Request MICROALBUMIN: CREATININE RATIO (70660) AND (63601)Indication: Hypertension On: : Request CBC W/AUTO DIFF WBC (48013)Indication: Hypertension On: : Request Rapid Flu (92177 x 2)Indication: Wheezing On: 61-Tjs-236517:43 Request METABOLIC PANEL, COMPREHENSIVE (47431)Indication: Asthma, intrinsic, with status asthmaticus On: :45 Request CBC WITH MANUAL DIFF (52659)Indication: Asthma, intrinsic, with status asthmaticus On: :45 Request LIPID PANEL (85738)Indication: Hyperlipidemia On: :45 Request Vitamin D Hydroxy (65521)Indication: Vitamin D deficiency, unspecified On: :45 Request Vitamin D Hydroxy (53306)Indication: Vitamin D deficiency, unspecified On: 33-Kns-773455:57 Request Vitamin D Hydroxy (01117)Indication: Fatigue On: :45 Request VITAMIN B-12 (CYANOCOBALAMIN) (08354)Indication: Fatigue On: :45 Request TSH (82015)Indication: Fatigue On: 00-Ond-118876:45 Request METABOLIC PANEL, COMPREHENSIVE (14853)Indication: Fatigue On: 97-Ghq-263184:45 Request CBC WITH MANUAL DIFF (18055)Indication: Fatigue On: :45 Request Planned Encounters Medical; 2 Week FU - On: 01-Sep-2018 11:15 [facility] Lydia Copeland DO, DO, Kathleen Planned Procedures Flu Vaccine (Quadrivalent) On: 16-Aug-2018 Intent 81888Gf: Lydia Copeland DO Comments: Lot #[id number]-L dltd, IMDose prefilled syringegiven by: Rachna Lyon LPN.VIS reviewed and ABN signed Lydia Copeland DO Radiology - Hand - On: 16-Aug-2018 Intent BilateralBy: Min DO, Lydia Min DO, Lydia X-RAY OF RIGHT HIP, ONE VIEW On: 16-Aug-2018 Intent (29767)By: Lydia Copeland DO DO, Lydia Radiology - Hip - LeftBy: On: 16-Aug-2018 Intent Min DOLydia Min DO, Lydia Radiology - Lumbar SpineBy: On: 16-Aug-2018 Intent Min DOLydia Min DO, Lydia X-RAY LEFT SHOULDER, 2+ VIEWS On: 16-Aug-2018 Intent (40377)By: Lydia Copeland DO DO, Lydia Radiology - Shoulder - On: 16-Aug-2018 Intent RightBy: Lydia Copeland DO DO, Lydia Aerosol Treatment (29793)By: On: 11-Nov-2016 Intent Dena Hurd LPN Solu -Medrol Injection, 125 mg On: 11-Nov-2016 Intent (J2930)By: Octavia Isabel CNP Comments: lot: [id number]: 03/08site/route: LGM/IMamt: 2mLVIS signed when applicableChelsea, LEAD LAYING AND GLUING MACHINE OPERATOR Aerosol Treatment (15772)By: On: 11-Nov-2016 Intent Octavia Isabel CNP Spirometry (50427)By: Chalo On: 11-Nov-2016 Intent Octavia BLANKENSHIP CHEST XRAY, PA & LATERAL On: 17-Sep-2016 Intent (12727)By: Shekhar Sharpe MD Solu -Medrol Injection, 125 mg On: 17-Sep-2016 Intent (J2930)By: Shekhar Sharpe MD Comments: solumedrollot:[id number]:03/08site:lt glutroute:IMdose:125mgD.ALYSHA Harris MAMMOGRAM, SCREENING, BOTH On: 29-Jul-2016 Intent BREAST (08020)By: Lydia Copeland DO, DO, Kathleen X-RAY OF LUMBAR SPINE, AP VIEW On: 29-Jul-2016 Intent (00402)By: Lydia Copeland DO, DO, Kathleen Rocephin Injection, 2 Gram On: 09-Aug-2015 Intent (J0696)By: Jeanne Quinones DO Comments: ROCEPHINlot:[id number]:2*1*2018site:L and R glutroute:IMdose:2gDEMICK, SMA SPECIMEN HNDLNG/TRNSPRT, OFFC On: 31-Jan-2013 Intent > LAB (89164)By: JOSE Romo Aerosol Treatment (14407)By: On: 30-Aug-2012 Intent Chalo BLANKENSHIP, Kirstie Eprescribed prescriptions On: 30-Aug-2012 Intent (G8553)By: Magdalena Higgins LPN CT - ChestBy: Jeanne Quinones DO On: 17-May-2012 Intent Comments: noncontrast high resolution FLU VAC, SPLIT, >3 YEARS, On: 17-May-2012 Intent INTRAMUSC (47700)By: Heath MONTOYA, Comments: [id number] arm, IM prefilledMegan Laura Starr IMMUNIZ ADMNIN, 1 VAC, On: 17-May-2012 Intent SNGL/COMBO (69815)By: Laura Joe LPN TDAP VACCINE >7 IM (73436)By: On: 18-Jan-2012 Intent Suki Mandujano Comments: Lot:[id number]:08/14/13Amt:prefilledRoute:IMSite:left deltGiven By: LINDSAY Yee Inhaler Demo (85313)By: Joni On: 18-Jan-2012 Intent Jeanne WELLINGTON Radiology - Chest- PA and On: 18-Jan-2012 Intent LatBy: Jeanne Quinones DO FLU VAC, SPLIT, >3 YEARS, On: 18-Jan-2012 Intent INTRAMUSC (43865)By: Nazia, Comments: 2010 Suki PFT - CompleteBy: Joni WELLINGTON, On: 03-Nov-2011 Intent Jeanne Garcia Spirometry (82738)By: Joni On: 03-Nov-2011 Intent Jeanne WELLINGTON Comments: good effort and curve mild restriction IMMUNIZ ADMNIN, 1 VAC, On: 03-Nov-2011 Intent SNGL/COMBO (30485)By: Heath Comments: Lot #[id number]-L arm, IMDose 0.5mlgiven by:Laura Sanchez LPN PNEUM VAC ADLT/IMUMNOSPR, On: 03-Nov-2011 Intent SBC/INTRM (42862)By: Laura Joe LPN DXA, BONE DENSITY, AXIAL On: 03-Nov-2011 Intent SKELETON (98134)By: Joni WELLINGTON, Comments: postmenopausal without etrogen Jeanne A MAMMOGRAM, SCREENING, BOTH On: 03-Nov-2011 Intent BREASTS (07380)By: Jeanne Quinones DO Planned Medications INJECTION, CEFTRIAXONE [...] had it done 3 weeks ago at [facility] -- called med rec to have [...]
--- OUTSIDE RECORDS SUMMARY | 2018-09-28 06:31 | XMS RPT_ITS ---
:1955 Author Organization OHIP Support Name Relationship Address Phone D Unknown Unavailable Unavailable OSITO DILL [address] + [place] [address] WAN DILL Unknown [address] + [place] [address] D Unknown Unavailable Unavailable OSITO DILL [address] + [place] [address] WAN DILL Unknown [address] + [place] [address] D Unknown Unavailable Unavailable OSITO DILL [address] + [place] [address] WAN DILL Unknown [address] + [place] [address] D Unknown Unavailable Unavailable OSITO DILL [address] + [place] [address] WAN DILL Unknown [address] + [place] [address] D Unknown Unavailable Unavailable OSITO DILL [address] + [place] [address] WAN DILL Unknown . + [place] [address] D Unknown Unavailable Unavailable OSITO DILL [address] + [place] [address] WAN DILL Unknown Unavailable + [place] [address] D Unknown Unavailable Unavailable OSITO DILL [address] + [place] [address] WAN DILL Unknown Unavailable + [place] [address] D Unknown Unavailable Unavailable OSITO DILL [address] + [place] [address] WAN DILL Unknown Unavailable + [place] [address] D Unknown Unavailable Unavailable OSITO DILL . + ., [place] . WAN D[place] Unknown . + ., [place] . D Unknown Unavailable Unavailable OSITO DILL Unavailable + WAN DILL Unknown Unavailable + D Unknown Unavailable Unavailable OSITO DILL Unavailable + WAN DILL Unknown Unavailable + D Unknown Unavailable Unavailable OSITO DILL [place] + [place], [place] D[place] NA + [place], [place] D Unknown Unavailable Unavailable OSITO DILL [address] + [place] [address] WAN DILL Unknown [address] + [place] [address] D Unknown Unavailable Unavailable OSITO DILL [address] + [place] [address] WAN DILL Unknown [address] + [place] [address] D Unknown Unavailable Unavailable OSITO DILL [place] + [place], [place] NA + [place], [place] Care Team Providers Name Role Phone Stanley Marcos Attending Unavailable Rosanna, Lydia Primary Care Unavailable Stanley Marcos Referring Unavailable Julee Montelongo Attending Unavailable Stanley Marcos Attending Unavailable Rosanna, Lydia Referring Unavailable Rosanna, Lydia Primary Care Unavailable Stanley Marcos Attending Unavailable Stanley Marcos Referring Unavailable Ernesto Webster Attending Unavailable Ernesto Webster Referring Unavailable Rosanna, Lydia Primary Care Unavailable Ernesto Webster Attending Unavailable Ernesto Webster Referring Unavailable Yuni Banks Attending Unavailable Rosanna, Lydia Referring Unavailable Yuni Banks Attending Unavailable Jocelyn, Yuni Referring Unavailable Rosanna, Lydia Primary Care Unavailable Ernesto Webster Attending Unavailable Jocelyn Yuni Referring Unavailable Mercedes Cornelius Attending Unavailable Mercedes Cornelius Referring Unavailable Rosanna, Lydia Primary Care Unavailable Stanley Marcos Attending Unavailable Rosanna, Lydia Referring Unavailable Rosanna, Lydia Primary Care Unavailable Stanley Marcos Attending Unavailable Stanley Marcos Referring Unavailable Rosanna, Lydia Primary Care Unavailable Stanley Marcos Attending Unavailable Stanley Marcos Referring Unavailable Ernesto Webster Attending Unavailable Rosanna, Lydia Referring Unavailable Rosanna, Lydia Attending Unavailable Rosanna, Lydia Referring Unavailable Rosanna, Lydia Primary Care Unavailable SCHWALEJANDRO LOONEY Attending Unavailable STANLEY MARCOS Referring Unavailable Rosanna DO, Lydia Attending Unavailable Rosanna DO, Lydia Consulting Unavailable Rosanna DO, Lydia Referring Unavailable SCHWEIALEJANDRO NARANJO Attending Unavailable STANLEY MARCOS Referring Unavailable ROSANNA, KATHLEE Primary Care Unavailable Purpose Purpose PROBLEMS PROBLEMS DATE TYPE CONDITION / CODE ATTENDING STATUS SOURCE 08/16/2018 Unknown E78.5 - Rosanna, Active [place] Hyperlipidemia, [facility] unspecified / Hospital E78.5(ICD-10) Repository 08/16/2018 Unknown E55.9 - Vitamin D Rosanna, Active [place] deficiency, [facility] unspecified / Hospital E55.9(ICD-10) Repository 08/16/2018 Unknown I10 - Essential Rosanna, Active [place] (primary) [facility] hypertension / Hospital I10(ICD-10) Repository 07/12/2018 Unknown I27.21 - Secondary Ernesto Webster Active [place] pulmonary arterial [facility] hypertension / Hospital I27.21(ICD-10) Repository 07/12/2018 Unknown G47.33 - Ernesto Webster Active [place] Obstructive sleep Community apnea (adult) Hospital (pediatric) / Repository G47.33(ICD-10) 07/11/2018 Unknown R00.2 - Stanley Marcos Active [place] Palpitations / Community R00.2(ICD-10) Hospital Repository 04/22/2018 Unknown I48.1 - Persistent Stanley Marcos Active [place] atrial fibrillation Community / I48.1(ICD-10) Hospital Repository 04/22/2018 Unknown 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 / Hospital Q23.1(ICD-10) Repository 04/21/2018 Unknown Z79.899 - Other Cornelius, Active [place] chcf (current) Mercedes Soto [facility] drug therapy / Hospital Z79.899(ICD-10) Repository 12/21/2017 Unknown R94.2 - Abnormal Ernesto Webster Active [place] results of [facility] pulmonary function Hospital studies / Repository R94.2(ICD-10) 11/09/2017 Active Other specified SCHWEIKERT, Active [place] personal risk [facility] Other factors, not [place] elsewhere Repository classified / Z91.89(ICD-10) 11/08/2017 Active Congenital SCHWEIKERT, Active [place] insufficiency of [facility] Other aortic valve / [place] Q23.1(ICD-10) Repository 11/08/2017 Active Tachycardia, SCHWEIKERT, Active [place] unspecified / [facility] Other R00.0(ICD-10) [place] Repository 11/08/2017 Active Palpitations / SCHWEIKERT, Active [place] R00.2(ICD-10) [facility] Other [place] Repository 11/08/2017 Active Paroxysmal atrial SCHWEIKERT, Active [place] fibrillation / [facility] Other I48.0(ICD-10) [place] Repository 11/09/2017 Admitting Unknown / SCHWEIKERT, Active [place] [facility] diagnosis UNK(Unknown) [facility] Repository 10/07/2017 Unknown I27.2 - Other Stanley Marcos Active [place] secondary pulmonary Community hypertension / Hospital I27.2(ICD-10) Repository PROCEDURES PROCEDURES No Procedure Records FoundVITAL SIGNS VITAL SIGNS No Vital Signs Records FoundRESULTS RESULTS CBC W/DIFF, AUTOMATED Collected: 08/16/2018 Status: F Source: [place] 1:40 PM [facility] HOSPITAL REPOSITORY TYPE CODE TESTS RESULT OUT OF RANGE REFERENCE UNITS LAB L100.1000 4.4-11.0 K/mm3 Normal WBC 7.9 LAB L100.1200 4.2-5.4 M/mm3 Normal RBC 4.26 LAB L100.1300 12.0-15.0 g/dl Normal HGB 12.9 LAB L100.1400 37-47 % Normal HCT 39.3 LAB L100.1500 81-99 fL Normal MCV 92.3 LAB L100.1600 27.0-32.0 pg Normal MCH 30.3 LAB L100.1700 32-36 g/gl Normal MCHC 32.8 LAB L100.1810 11.6-14.6 % Normal RDW CV 12.7 LAB L100.1820 35.1-43.9 fl Normal RDW SD 41.5 LAB L100.1900 150-450 K/mm3 Normal PLT 209 LAB L100.2000 6.2-12.0 fl Normal MPV 9.6 LAB L100.2100 47-70 % Normal NEUT% 66.2 LAB L100.2200 19-41 % Normal LY% 26.4 LAB L100.2300 0-10 % Normal MONO% 6.0 LAB L100.2400 0-5 % Normal EO% 0.8 LAB L100.2500 0-1 % Normal BASO% 0.3 LAB L100.2550 0.0-0.9 % Normal IM GRAN % 0.300 Result Comment: IG% - Immature Granulocytes (promyelocytes, myelocytes and metamyelocytes) > 1% indicates that a LEFT SHIFT is Present. LAB L100.2620 2.0-7.7 X10 3/uL Normal Absolute Neut 5.2 LAB L100.2720 0.83-4.51 X10 3/ul Normal Absolute Lymph 2.08 Performed By: #### L100.0100 #### [facility] [address] [place], [place], [address] VITAMIN D,25 HYDROXY Collected: 08/16/2018 Status: F Source: [place] 1:40 PM [facility] REPOSITORY TYPE CODE TESTS RESULT OUT OF REFERENCE UNITS RANGE LAB L506.1000 29.95-100.01 ng/mL Low Vitamin D 24.2 25-OH Result Comment: Vitamin D 25(OH) Status Range Deficiency <20 ng/mL (50nmol/L) Insuffciency 20 - 30 ng/mL (50 - 75 nmol/L) Sufficiency 30 - 100 ng/mL (75 - 250 nmol/L) Toxicity >100 ng/mL (>250 nmol/L) Performed By: #### L506.1000 #### [facility] [address] [place], [address] BASIC METABOLIC Collected: 08/16/2018 Status: F Source: [place] PROFILE (BMP) 1:40 PM [facility] REPOSITORY TYPE CODE TESTS RESULT OUT OF RANGE REFERENCE UNITS LAB L501.0100 74-106 mg/dL Normal GLU 83 Result Comment: Please note revised GLUCOSE reference range effective 2017. LAB L501.1000 7-18 mg/dL High BUN 25 LAB L501.1100 0.55-1.02 mg/dL Normal CREAT,SERUM 0.80 Result Comment: The validity of the calculated GFR AND GFRAA in patients over 70 years has not been determined. Clinical correlation is essential. LAB L501.1110 >60 mL/min Normal EST GFR 77 Result Comment: Non- GFR Calc LAB L501.1115 >60 mL/min Normal EST GFR - AA 94 Result Comment: GFR Calc LAB L501.1300 10-20 RATIO High BUN/CRE 31.4 LAB L501.2200 8.5-10.1 mg/dL CA Normal 9.2 LAB L501.5300 136-145 mmol/L NA Normal 142 LAB L501.5600 3.5-5.1 mmol/L K Normal 3.9 LAB L501.5900 98-107 mmol/L CL Normal 103 LAB L501.6100 21.0-32.0 mmol/L Normal CO2 31.0 LAB L501.6200 5-15 Normal GAP 8 Performed By: #### L500.2500, L501.9520 #### [facility] [address] [place], [place], [address] THYROID STIM HORMONE Collected: 08/16/2018 Status: F Source: [place] (TSH) 1:40 PM [facility] REPOSITORY TYPE CODE TESTS RESULT OUT OF RANGE REFERENCE UNITS LAB L501.9520 0.358-3.74 uIU/mL Normal TSH 1.50 Performed By: #### L500.2500, L501.9520 #### [facility] [address] [place], [address] URINALYSIS, COMPLETE Collected: 08/16/2018 Status: F Source: [place] 1:40 PM [facility] REPOSITORY Order Comment: How was Urine Obtained? CLEAN CATCH TYPE CODE TESTS RESULT OUT OF RANGE REFERENCE UNITS LAB L400.3000 Yellow COLOR Normal Yellow LAB L400.3050 Clear Normal CLARITY Clear LAB L400.3200 Normal mg/dl Normal GLUCOSE, UR Normal LAB L400.3300 Negative mg/dL Normal BILIRUBIN URINE Negative LAB L400.3400 Negative mg/dl Normal KETONE UR Negative LAB L400.3465 1.002-1.030 Normal SP.GR. DIPSTX 1.010 LAB L400.3550 5.0 - 8.0 pH UR Normal 6.5 LAB L400.3600 Negative mg/dl PROT Normal DIPSTX Negative LAB L400.3700 Normal mg/dl Normal UROBILI Normal LAB L400.3750 Negative Normal NITRITE UR Negative LAB L400.3780 Negative /ul High 10 OCCULT BLOOD-UR LAB L400.3800 Negative /ul LEUK Normal ESTERASE Negative LAB L400.4050 0-5 /hpf WBC 0 Normal SEEN LAB L400.4100 0-5 /hpf 0 Normal RBC-UA SEEN LAB L400.4150 5-10 /hpf SQUAM 0 Normal EPI SEEN LAB L400.4300 None Seen /hpf 0 Normal BACTERIA SEEN LAB L400.4350 <or=2+ /hpf 0 Normal MUCUS, URINE SEEN Performed By: #### L400.0001 #### [facility] [address] [place], [place], [address] MICROALB:CREAT Collected: 08/16/2018 Status: F Source: [place] RATIO,RANDOM UR 1:40 PM [facility] REPOSITORY TYPE CODE TESTS RESULT OUT OF RANGE REFERENCE UNITS LAB L501.1200 NO RANGE EST. mg/dL Normal UR CREAT 66.90 LAB L502.0500 NO RANGE EST. mg/L Normal 5.1 MICROALBUMIN ,UR LAB L502.0600 <30 mg/g CRE mg/g CRE Normal 7.6 MALB:CREAT Performed By: #### L502.0250 #### [facility] [address] [place], [place], [address] NMR LIPOPROFILE Collected: 08/16/2018 Status: F Source: [place] 1:40 PM [facility] REPOSITORY TYPE CODE TESTS RESULT OUT OF RANGE REFERENCE UNITS LAB L3500.0250 LIPIDS Normal . LAB L3500.0300 100-199 mg/dL High CHOLESTEROL TOT 207 LAB L3500.0350 0-99 mg/dL High LDL-C 123 Result Comment: Optimal < 100 Above optimal 100 - 129 Borderline 130 - 159 High 160 - 189 Very high > 189 LDL-C is inaccurate if patient is non-fasting. LAB L3500.0400 >39 mg/dL HDL-C Normal 69 LAB L3500.0450 0-149 mg/dL TRIGLYCERIDES Normal 77 LAB L3500.0560 <1000 nmol/L High LDL-P 1229 Result Comment: Low < 1000 Moderate 1000 - 1299 Borderline-High 1300 - 1599 High 1600 - 2000 Very High > 2000 LAB L3500.0575 Normal LD HD PARTICLES . LAB L3500.0580 >=30.5 umol/L Normal HDL-P TOTAL 45.7 LAB L3500.0585 <=527 nmol/L Normal SMALL LDL-P 298 LAB L3500.0590 >20.5 nm Normal LDL SIZE 22.0 Result Comment: INTERPRETATIVE INFORMATION PARTICLE CONCENTRATION AND SIZE <--Lower CVD Risk Higher CVD Risk--> LDL AND HDL PARTICLES Percentile in Reference Population HDL-P (total) High 75th 50th 25th Low >34.9 34.9 30.5 26.7 <26.7 Small LDL-P Low 25th 50th 75th High <117 117 527 839 >839 LDL Size <-Large (Pattern A)-> <-Small (Pattern B)-> 23.0 20.6 20.5 19.0 Small LDL-P and LDL Size are associated with CVD risk, but not after LDL-P is taken into account. These assays were developed and their performance characteristics determined by [employer]. These assays have not been cleared by the [place] Food and Drug Administration. The clinical utility of these laboratory values have not been fully established. LAB L3500.0595 Normal INS RES/DIAB RK . LAB L3500.0875 <=45 Normal LP-IR SCORE 34 Result Comment: INSULIN RESISTANCE MARKER <--Insulin Sensitive Insulin Resistant--> Percentile in Reference Population Insulin Resistance Score LP-IR Score Low 25th 50th 75th High <27 27 45 63 >63 LP-IR Score is inaccurate if patient is non-fasting. The LP-IR score is a laboratory developed index that has been associated with insulin resistance and diabetes risk and should be used as one component of a physician's clinical assessment. The LP-IR score listed above has not been cleared by the [place] Food and Drug Administration. Performed at: - [facility] [id number] Gamemaster: Federico Barcenas MD, Phone: [phone] Performed By: #### L3500.0000 #### [facility] (refer to report for specific site) refer to report for address and phone number SHOULDER MIN 2 VIEWS Observed: 08/16/2018 Status: F Source: [place] 1:10 PM [facility] REPOSITORY [facility] Imaging Services [address] [address] Shoulder min 2 Views MR#: [id number] Acct: [id number] Name: RIKY DILL Rep #: [id number] : 1955 F 63 From: Inderjit Choudhary DO PCP: Lydia Copeland DO Status: REG CLI Study: Shoulder min 2 Views Date of Exam: 08/16/18 Exam# [id number] Ordering Dr: Lydia Copeland DO STUDY: X-RAY - LEFT SHOULDER REASON FOR EXAM: Female, 63 years old. Left shoulder pain TECHNIQUE: 4 view(s) of the shoulder. COMPARISON: None. FINDINGS: There is mild degenerative arthrosis of the glenohumeral articulation. There is degenerative arthrosis of the acromioclavicular joint without inferior osseous spur formation. Normal acromion. Normal humeral head and visualized proximal humerus. The soft tissue structures are unremarkable. Normal visualized pulmonary apex. RAD/Shoulder min 2 Views IMPRESSION: Mild degenerative change of the shoulder Electronically Signed: Inderjti Choudhary DO at 13:19 EST Tel , Service support , CC: Lydia Copeland DO Business Objects Analyst: Signed HAND MIN 3 VIEWS Observed: 08/16/2018 Status: F Source: [place] 1:09 PM [facility] REPOSITORY [facility] Imaging Services [address] [place] [address] Hand Min 3 Views MR#: [id number] Acct: [id number] Name: RIKY DILL Rep #: [id number] : 1955 F 63 From: Inderjit Choudhary DO PCP: Lydia Copeland DO Status: REG CLI Study: Hand Min 3 Views Date of Exam: 08/16/18 Exam# [id number] Ordering Dr: Lydia Copeland DO STUDY: X-RAY - LEFT HAND REASON FOR EXAM: Female, 63 years old. Pain with arthralgia TECHNIQUE: 3 view(s) of the hand. COMPARISON: None. FINDINGS: Normal radiocarpal articulation. Normal distal radioulnar joint. Normal visualized carpal bones. Normal carpal articulations There is degenerative arthrosis of the carpometacarpal (CMC) articulation of the thumb. Normal second through fifth carpometacarpal joints. Normal metacarpi. Normal metacarpophalangeal joint of the thumb. Normal interphalangeal joint of the thumb. Normal proximal and distal phalanges of the thumb. Normal metacarpophalangeal joints of the second through fifth fingers. There is diffuse articular joint space narrowing of the proximal and distal interphalangeal joints of the second through fifth fingers, but without erosive changes or periarticular soft tissue swelling. Normal phalanges of the second through fifth fingers. The soft tissue structures are unremarkable. RAD/Hand Min 3 Views IMPRESSION: Mild degenerative changes Electronically Signed: Inderjit Choudhary DO at 13:18 EST Tel , Service support , CC: Lydia Copeland DO Business Objects Analyst: Signed SHOULDER MIN 2 VIEWS Observed: 08/16/2018 Status: F Source: [place] 1:09 PM [facility] HOSPITAL REPOSITORY [facility] Imaging Services [address] [place] [address] Shoulder min 2 Views MR#: [id number] Acct: [id number] Name: RIKY DILL Rep #: [id number] : 1955 F 63 From: Inderjit Choudhary DO PCP: Lydia Copeland DO Status: REG CLI Study: Shoulder min 2 Views Date of Exam: 08/16/18 Exam# [id number] Ordering Dr: Lydia Copeland DO STUDY: X-RAY - RIGHT SHOULDER REASON FOR EXAM: Female, 63 years old. Shoulder pain TECHNIQUE: 4 view(s) of the shoulder. COMPARISON: None. FINDINGS: There is moderate degenerative arthrosis of the glenohumeral articulation. There is degenerative arthrosis of the acromioclavicular joint without inferior osseous spur formation. Normal acromion. Normal humeral head and visualized proximal humerus. The soft tissue structures are unremarkable. There is no demonstrated fracture. Normal visualized pulmonary apex. RAD/Shoulder min 2 Views IMPRESSION: Degenerative changes Electronically Signed: Inderjit Choudhary DO at 13:19 EST Tel , Service support , CC: Lydia Copeland DO Business Objects Analyst: Signed HAND MIN 3 VIEWS Observed: 08/16/2018 Status: F Source: [place] 1:08 PM [facility] HOSPITAL REPOSITORY [facility] Imaging Services [address] [place] [address] Hand Min 3 Views MR#: [id number] Acct: [id number] Name: RIKY DILL Rep #: [id number] : 1955 F 63 From: Inderjit Choudhary DO PCP: Lydia Copeland DO Status: REG CLI Study: Hand Min 3 Views Date of Exam: 08/16/18 Exam# [id number] Ordering Dr: Lydia Copeland DO STUDY: X-RAY - RIGHT HAND REASON FOR EXAM: Female, 63 years old. Hand pain TECHNIQUE: 3 view(s) of the hand. COMPARISON: None. FINDINGS: Normal radiocarpal articulation. Normal distal radioulnar joint. Normal visualized carpal bones. Normal carpal articulations Normal carpometacarpal articulation of the thumb. Normal second through fifth carpometacarpal joints. Normal metacarpi. Normal metacarpophalangeal joint of the thumb. 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 Normal proximal and distal phalanges of the thumb. Normal metacarpophalangeal joints of the second through fifth fingers. There is diffuse articular joint space narrowing of the proximal and distal interphalangeal joints of the second through fifth fingers, but without erosive changes or periarticular soft tissue swelling. Normal phalanges of the second through fifth fingers. The soft tissue structures are unremarkable. RAD/Hand Min 3 Views IMPRESSION: Mild degenerative change Electronically Signed: Inderjit Choudhary DO at 13:19 EST Tel , Service support , CC: Lydia Copeland DO Business Objects Analyst: Elizabeth HIPS B/L MIN 2 Observed: 08/16/2018 Status: F Source: [place] VIEWS W/ PELVIS 1:07 PM [facility] REPOSITORY [facility] Imaging Services [address] [place] [address] Hips B/L min 2 views w/ Pelvis MR#: [id number] Acct: [id number] Name: RIKY DILL Rep #: [id number] : 1955 F 63 From: Inderjit Choudhary DO PCP: Lydia Copeland DO Status: REG CLI Study: Hips B/L min 2 views w/ Pelvis Date of Exam: 08/16/18 Exam# [id number] Ordering Dr: Lydia Copeland DO STUDY: X-RAY - BILATERAL HIPS WITHOUT PELVIS REASON FOR EXAM: Female, 63 years old. Bilateral hip pain TECHNIQUE: 2 views of the right hip, and 2 views of the left hip were obtained. COMPARISON: None. FINDINGS: Right Hip: There are osteoarthritic changes of the right femoral head with marginal osteophyte formation. Normal right acetabulum. There is mild articular joint space narrowing of the right hip. There is no demonstrated right hip fracture. Left Hip: There are osteoarthritic changes of the left femoral head with marginal osteophyte formation. Normal left acetabulum. There is mild articular joint space narrowing of the left hip. There is no demonstrated left hip fracture. Normal bilateral superior and inferior pubic rami , ischial tuberosities and pubic symphysis. Small bone island within the inferior pubic ramus RAD/Hips B/L min 2 views w/ Pelvis IMPRESSION: Mild degenerative change of the hips Electronically Signed: Inderjit Choudhary DO at 13:17 EST Tel , Service support , CC: Lydia Copeland DO Business Objects Analyst: Signed L/S SPINE MIN 4 Observed: 08/16/2018 Status: F Source: [place] VIEWS 1:05 PM [facility] REPOSITORY [facility] Imaging Services [address] [place] [address] L/S Spine Min 4 Views MR#: [id number] Acct: [id number] Name: RIKY DILL Rep #: [id number] : 1955 F 63 From: Inderjit Choudhary DO PCP: Lydia Copeland DO Status: REG CLI Study: L/S Spine Min 4 Views Date of Exam: 08/16/18 Exam# [id number] Ordering Dr: Lydia Copeland DO STUDY: X-RAY - LUMBAR SPINE REASON FOR EXAM: Female, 63 years old. Low back pain TECHNIQUE: 5 view(s) of the lumbar spine were obtained. COMPARISON: None FINDINGS: There is an exaggerated lumbar lordosis. There is no substantial scoliosis. There is a normal alignment of the vertebrae. There is multilevel endplate spondylosis of the lumbar vertebrae. There is multi-level degenerative disc disease with multi-level disc space narrowing. The soft tissue structures are unremarkable. RAD/L/S Spine Min 4 Views IMPRESSION: Degenerative changes of the spine, as detailed above. Electronically Signed: Inderjit Choudhary DO at 11:41 EST Tel , Service support , CC: Lydia Copeland DO Business Objects Analyst: Signed PULMONARY VISIT REPORT Observed: 07/12/2018 Status: F Source: [place] 9:49 AM [facility] REPOSITORY [facility] [address] [place] [address] OFFICE VISIT Date of Service: 07/12/18 MR#: [id number] Acct: [id number] Name: RIKY DILL Rep #: [id number] : 1955 Provider: Ernesto Webster MD Age/Sex: 63/F Location: [facility] [place] Status: Signed Assessment AND Plan Problems 1. MEGHAN (obstructive sleep apnea) G47.33 2. Secondary pulmonary arterial hypertension I27.21 3. History of maze procedure Z98.890 Plan Patient overall is doing well from an MEGHAN standpoint. Patient's walking oximetry did show significant desaturation with ambulation, which would be expected with patient secondary pulmonary hypertension. Patient was advised to avoid salt as much as possible. Patient has had a slight increase in weight. Patient's AHI is slightly elevated, but not enough to require a repeat titration study. Patient is back in A. fib, which would complicate patient's arterial hypertension. Will obtain a walking oximetry prior to next visit. Patient can sent back to her oxygen therapy. Walking oximetry prior to next visit. Continue BiPAP as ordered. Encourage weight loss Orders Orders: Plan Detail Follow Up 6 Months ([facility]) HPI 6 M FU: Chief Complaint: Shortness [...] that she was placed back on Eliquis therapy secondary to a Holter monitor showing significant paroxysmal A. fib. Patient states that she has been compliant with her BiPAP therapy. Patient feels that this is going well overall. Patient denies the need for naps during the day. Patient continues to notice restful sleep. Patient does not wake up for nocturia. Patient occasionally will wake up with the mask off, but states this happens infrequently. Patient denies any pain at the interface site, dry mouth or epistaxis. Overall, patient feels that her dyspnea on exertion is subjectively improved compared to previous. Patient denies any bleeding complications associated with the use of anticoagulation. Patient does report some weight gain that she attributes to dietary indiscretions and decreased activity. Patient states that when her heart rate is elevated she becomes dyspneic more rapidly. Testing personally reviewed with the patient Walking oximetry (02/17/2018): Ambulated 780 feet over the course of 6 minutes on room air with significant desaturation as low as 90%. Compliance report (May 2018): Compliant 83% of days for an average of 6 hours 15 minutes on BiPAP 16/12 centimeters of water with residual AHI of 3 and fairly controlled leak. HPI Comments Details: Intake Vital Signs07/12/18 Height 5 ft 4 in 07/12/18 Weight: 92.079 kg Intake Visit Reasons: 6 M FU Content Curator Required: No Accompanied by: Self Is patient in pain?: No Allergies No Known Allergies Allergy (Unverified 07/12/18 09:14) Medications Lamotrigine [Lamictal] 200 mg PO DAILY 12/17/14 [History Confirmed 07/12/18] Potassium Chloride [K-Dur] 10 meq PO DAILY 12/17/14 [History Confirmed 07/12/18] Verapamil HCl [Calan Sr] 120 mg PO DAILY 12/17/14 [History Confirmed 07/12/18] ezetimibe 10 mg tablet 10 mg PO QDAY 10/18/17 [History Confirmed 07/12/18] trazodone 100 mg tablet 200 mg PO DAILY tab 10/18/17 [History Confirmed 07/12/18] ramipril 10 mg capsule 10 mg PO QDAY 10/19/17 [History Confirmed 07/12/18] sertraline 100 mg tablet 100 mg PO BID tab 10/19/17 [History Confirmed 07/12/18] metoprolol tartrate 100 mg [...] History Brother CAD (coronary artery disease) from [place] age 52 Father Dementia Mother Cancer Social [...] breathing during sleep, weight loss, sleeping in chair, fatigue, weight loss, weight gain, frequent colds, seasonal allergies, other, headache(s) or orthopnea EETM Ear Nose Throat Mouth: Positive nasal discharge, hearing normal and post nasal drip; negative hoarseness, dry mouth in morning, change in [...] weakness or other Psych Psychocological: Negative abnormal sleep pattern, anxiety, thoughts of hurting self/others, hopelessness or other Lymph Lymphatic: Negative easy bleeding, easy bruising, other or swollen lymph nodes Exam Const Constitutional: Positive conversant, cooperative, in no acute respiratory distress, healthy appearing, well developed, well nourished and good hygiene; negative wearing supplemental oxygen or ill appearing Head Head: Positive normocephalic and atraumatic; negative cyanosis of lips/distal nose, frontal sinus tenderness or maxillary sinus tenderness Eyes Eye: Positive clear conjunctiva; negative nystagmus, scleral abnormality or cataract present Ears Ear: Positive hearing normal and external ears normal; negative hard of hearing Nose Nose: Positive external nose normal, septum normal and clear nasal discharge; negative epistaxis or nasal polyp Mouth Mouth: Positive post nasal drip, oral mucosae normal, no lesions and crowded posterior oropharynx; negative malodorous breath or oral thrush present Mallampati Score: III: Mallampati Score Neck Neck: Positive normal visual inspection, full ROM, trachea midline and female neck greater than 37 cm (15 in); negative lymphadenopathy or JVD Chest Wall Chest: Positive normal inspection of the chest and symmetric chest movement; negative crepitus or tenderness Resp lung sounds: Positive clear to auscultation, good air exchange, normal expiratory time and normal respiratory effort; negative wheezes, rhonchi, rales, use of accessory muscles, wheeze present on forced exhalation or dullness to percussion Cardio Cardiac: Positive regular rate, regular rhythm, S1 normal and S2 normal; negative murmur, rub or gallop GI GI: Positive normal to inspection and normal bowel sounds; negative distended, ascites or epigastric tenderness Genitourinary: Positive deferred Musc Musculoskeletal: Positive steady gait; negative using an assistive device for ambulation, kyphosis or scoliosis Skin Pulmonary Skin Exam: Positive intact; negative rash, lesion, ulcers, erythema, scaly or dermal atrophy Pulses Pulse: Yes radial pulses present Extremities Extremities: Yes capillary refill normal, No clubbing, No cyanosis, Yes edema (Trace lower extremity), No stasis dermatitis Neuro Neurologic: Yes conversant, Yes no focal [...] 07/12/18 0949 <Electronically signed by Ernesto Webster MD> Date Ernesto Stringer Signature: Date (if applicable) CC: Lydia Copeland DO CARDIOLOGY VISIT Observed: 04/22/2018 Status: F Source: [place] RE[place] 11:06 AM [facility] RE[facility]IT[facility] [address] [place] [address] OFFICE VISIT Date of Service: 04/22/18 MR#: [id number] Acct: [id number] Name: RIKY DILL Rep #: [id number] : 1955 Provider: Stanley Marcos MD Age/Sex: 63/F Location: [facility] Status: Signed HPI HPI Chief Complaint: Routine f/u Details: Details: Referring physician: Dr. Jeanne Quinones It was a pleasure seeing your patient, Riky Dill, today in our office. She Is a 63-year-old female and is returning for followup of her atrial fibrillation status post pulmonary vein isolation at the [facility] in 2003, mild coronary disease status post non ST elevation myocardial infarction Status post catheterization at [facility] in August 2011, and bicuspid aortic valve with mildly dilated ascending aorta and mild aortic insufficiency by echocardiogram dated 07/2012. CT scan of the chest demonstrated no significant aortic dilatation according to the report. Prior to our last visit, the patient has had progressively worsening dyspnea on exertion, shortness of breath, positional lightheadedness and dizziness, and hypotension. She has had no presyncope or syncope episodes, and no anginal symptoms. Patient got fairly winded just coming in from the parking lot today despite taking the elevator. She denies any sentinel events. patient underwent left and right heart catheterization at [facility] by myself on 03/05/17 which demonstrated [...] and tolerating her medicines well. Returns for follow-up, and complains of intermittent palpitations, but actually are occurring less frequently than our last visit. She did visit with Dr. Magaña, who made no changes to her medications and possibly recommended a monitoring device although none was placed. She reports palpitations lasting anywhere between a few seconds up to several minutes which are consistent with her previous atrial fibrillation. [...] 58. Her lipids as of 04/21/18 showing LDL 111 and HDL of 68. Intake Vital Signs04/22/18 Height 5 ft 4 in 04/22/18 Weight: 197 lb 04/22/18 Body Mass Index (BMI) 33.7 04/22/18 Blood Pressure 120/78 Intake Visit Reasons: 6 M FU Allergies flecainide Allergy (Verified 04/22/18 10:47) Unknown rosuvastatin [From Crestor] Allergy (Verified 04/22/18 10:47) Unknown sotalol Allergy (Verified 04/22/18 10:47) Unknown Medications Lamotrigine [Lamictal] 200 mg PO DAILY 12/17/14 [History Confirmed 04/22/18] Potassium Chloride [K-Dur] 10 meq PO DAILY 12/17/14 [History Confirmed 04/22/18] Verapamil HCl [Calan Sr] 120 mg PO DAILY 12/17/14 [History Confirmed 04/22/18] Aspirin [Aspirin, Baby] 81 mg PO DAILY@0800 03/04/17 [History Confirmed 04/22/18] ezetimibe 10 mg tablet 10 mg PO QDAY 10/18/17 [History Confirmed 04/22/18] gemfibrozil 600 mg tablet 600 mg PO BID 10/18/17 [History Confirmed 04/22/18] trazodone 100 mg tablet 200 mg PO DAILY tab 10/18/17 [History Confirmed 04/22/18] ramipril 10 mg capsule 10 mg PO QDAY 10/19/17 [History Confirmed 04/22/18] sertraline 100 mg tablet 100 mg PO BID tab 10/19/17 [History Confirmed 04/22/18] metoprolol tartrate 100 mg tablet 100 mg PO BID #180 tab 10/26/17 [Rx Confirmed 04/22/18] hydrochlorothiazide 25 mg tablet 25 mg PO QDAY #90 tab 11/10/17 [Rx Confirmed 04/22/18] [facility] Medical History Long-term use of high-risk medication [...] History Brother CAD (coronary artery disease) from [place] age 52 Father Dementia Mother Cancer Social [...] excessive sweating Eyes Eyes: Negative for change in vision, blurry vision or transient loss of vision ENT ENT: Positive for dizziness (HX Vertigo) and balance problems (unsteadiness due to vertigo) Cardio Chest Pain: No Palpitations: Yes (occasional) feels like its: fast Edema: None Muscle aches with walking: None Resp Respiratory: Negative for SOB with activity or SOB at rest GI GI: Negative vomiting or vomiting blood/hematemesis : Negative for hematuria Musc Musc: Positive for balance problems (unsteadiness due to vertigo), muscle aches/ myalgia (neck,bilat shoulders, back) and joint pain (HX Arthritis); negative for muscle weakness Skin Skin: Negative non-healing lesions or rash Neuro Neuro: Positive for vertigo and dizziness (HX Vertigo); negative for lightheadedness, orthostatic symptoms, weakness, frequent falls or blurry vision Glenn Hematologic/Lymphatic: Negative for easy bleeding Endo Endo: Negative [...] rhythm Heart sounds: S2 normal Murmur: Grade 2/6, crescendo-decrescendo and [...] Psychological: normal affect Assessment AND Plan 1. Bicuspid aortic valve Q23.1 Plan 1. Bicuspid aortic valve: The patient has a history of bicuspid aortic valve, with mild aortic stenosis by peak and mean gradient by echocardiogram in September 2017 and she is asymptomatic from a valvular standpoint. She denies any chest pain, angina, shortness of breath, lower extremity edema, dyspnea on exertion or worsening exercise capacity. Recommend yearly surveillance with a repeat echocardiogram in September 2018. In the meantime she will continue her hydrochlorothiazide, baby aspirin, metoprolol and ramipril. Orders Orders: 2. Dyslipidemia E78.5 Plan 2. Hyperlipidemia: I believe her LDL and HDL cholesterol are about as well controlled as one could hope for given her inability to take statins. Her most recent lipids on 10/07/17 showed an HDL of 58 and LDL of 102. Continue gemfibrozil and see 3. Persistent atrial fibrillation I48.1 Plan 3. Atrial fibrillation: The patient appears to have atrial fibrillation intermittently for only a few seconds which have actually improved since additional weight loss. Recommend continuing dual heart rate controlling therapy with metoprolol and verapamil. In addition we will order a 30 day monitor to attempt to document how frequent her palpitations and possibly atrial fibrillation are recurring. She states they occur about 1 time per month. Will hold off on anticoagulation until the completion of her 30 day event monitor. 4. Return office in 6 months. This note was generated using a voice recognition system and there may be incorrect words, spelling or punctuation that were not noted when reviewing the office note prior to saving. Orders Orders: Plan Detail Other Orders Orders: Follow Up +6M (Marcos) Coding Level of Care Code Off vis,est,level 3 Diagnoses Bicuspid aortic valve Q23.1 Dyslipidemia E78.5 Persistent atrial fibrillation I48.1 Coding Level of Care Code Off vis,est,level 3 Diagnoses Bicuspid aortic valve Q23.1 Dyslipidemia E78.5 Persistent atrial fibrillation I48.1 04/22/18 1106 <Electronically signed by Stanley Marcos MD> Date Stanley Marcos MD Cosigner Signature: Date (if applicable) CC: LIVER PROFILE Collected: 04/21/2018 Status: F Source: [place] 8:27 AM [facility] REPOSIT[facility] TYPE CODE TESTS RESULT OUT OF RANGE REFERENCE UNITS LAB L501.1500 6.4-8.2 g/dL Normal T PROT 7.0 LAB L501.1800 3.2-5.0 g/dL Normal ALB 3.6 LAB L501.1950 2.2-4.2 g/dL Normal GLOB 3.4 LAB L501.4100 15-37 U/L Low AST 13 LAB L501.4305 45-117 U/L Normal ALK P 89 LAB L501.4405 13-56 U/L Normal ALT 14 LAB L501.4600 0.20-1.00 mg/dL Normal T BILI 0.30 LAB L501.4700 0.00-0.30 mg/dL Normal D BILI 0.12 Performed By: #### L500.3400, L500.4100 #### [facility] [place], [address] LIPID PROFILE Collected: 04/21/2018 Status: F Source: [place] 8:27 AM [facility] REPOSITORY TYPE CODE TESTS RESULT OUT OF RANGE REFERENCE UNITS LAB L501.4900 200 mg/dL Normal CHOL 188 Result Comment: <200 mg/dL Desirable 200-240 mg/dL Borderline >240 mg/dL High Risk LAB L501.5000 mg/dL Normal TRIG 46 Result Comment: The drugs N-Acetylcysteine and Metamizole may falsely depress this assay. Serum Triglycerides Reference Interval Normal <150 mg/dL Borderline high 150 - 199 mg/dL High 200 - 499 mg/dL Very High > or = 500 mg/dL LAB L501.6400 mg/dL Normal HDL 68 Result Comment: The drugs N-Acetylcysteine and Metamizole may falsely depress this assay. Reference Range HDL <40 mg/dL Low HDL Cholesterol HDL >or= 60 mg/dL High HDL Cholesterol LAB L501.6500 0-130 mg/dL Normal LDL 111 LAB L501.6600 5-40 mg/dL Normal VLDL 9 Performed By: #### L500.3400, L500.4100 #### [facility] [address] [place], [address] 6 MINUTE WALK TEST Observed: 02/17/2018 Status: F Source: [place] 10:43 AM [facility] RE[facility]ITORY [facility] Pulmonary Services/Neurology [address] [place] [address] MR#: [id number] Acct: [id number] Name: RIKY DILL Rep #: [id number] : 1955 63 From: Ernseto Webster MD Referring Dr: Yuni Banks VOCATIONAL DIRECTOR Date: Ordering Dr: Sex: F C Location: PSN PSN 6 Minute Walk Test - 6 Minute Walk Test 6 Minute Walk Test: 6 Minute Walk Test PSN:6-Minute Walk Test Start: 02/17/18 08:49 Freq: Status: Active Protocol: RESP.6MINW Document 02/17/18 08:30 EW (Rec: 02/17/18 08:52 EW [id number]) 6 Minute Walk Test Date Performed 02/17/18 [...] Ox (%) 91 Pulse Rate (60-100 beats/min) 99 5th [...] be followed closely given level of desaturation. 02/17/18 1043 <Electronically signed by Ernesto Webster MD> Date Ernesto Webster MD CC: Date Dictated: 02/17/18 1040 Date Transcribed: 02/17/181039 Business Objects Analyst: Ernesto Webster Signed PULMONARY VISIT REPORT Observed: 01/12/2018 Status: F Source: [place] 3:21 PM [facility] Pulmonary Medicine of [address] [place] [address] OFFICE VISIT Date of Service: 01/11/18 MR#: [id number] Acct: [id number] Name: RIKY DILL Rep #: [id number] : 1955 Provider: Yuni Banks Age/Sex: 63/F [facility] Status: Signed Assessment AND Plan 1. MEGHAN (obstructive sleep apnea) G47.33 Status Chronic Plan She is using and benefiting from current pressure support therapy. No indication for a titration study at this time, however, we did discuss that as she continues to lose weight and may come a point when her pressure support therapy needs will be less. She conveys understanding. No additional testing at this time, follow- up with Dr. Webster in 6 months. 2. Secondary pulmonary arterial hypertension I27.21 Status Chronic Plan Stable. She has supplemental oxygen at home but has not needed it for quite some time. She would like to be evaluated for possibly having this oxygen discontinued and removed from her home. Given that her last pulmonary stress test was borderline requiring supplement oxygen, we will repeat the testing and if she still does not require it we will discontinue the oxygen. She agrees with this plan. Follow-up with Dr. Webster in 6 months. Orders Orders: 3. BMI 33.0-33.9,adult Z68.33 Status Chronic Plan Improving. She has been successful with weight watchers, she is pleased with her progress. Continue to encourage weight loss. Follow-up with Dr. Webster in 6 months. Plan Detail Follow Up 6 Months (BWA) HPI HPI Comments Details: PFT, Walk, and Titration prior. Happy Birthday. No issues with Bipap (DASCO). Dry mouth has improved with wearing the Bipap vs Cpap. Has O2 at home that she wants to get out of the house its just sitting there. This patient presents to the office today for a routine follow- up on her obstructive sleep apnea and pulmonary arterial hypertension. She is ambulatory, currently on room air and she accompanied by her . She denies any visits to the ED urgent care for any respiratory illnesses since her last office visit. She has not required any antibiotics or prednisone for breathing problems. She denies any shortness of breath, at rest, with conversation or even on exertion. She denies any cough, sputum production or hemoptysis. She also denies any wheezing, chest tightness, chest pain or palpitations. She has not experienced any fever, chills or body aches. She is not currently on any inhalers. She has not tried any rpjz-yae-fgijwoe medications. She is pleased that she continues to lose weight, her weight is down approximately 10 pounds since her last office visit. She is compliant with diet and exercise. She is using Weight Watchers and has been successful at losing 35 pounds overall. Pulmonary function test completed on December 21, 2017 and interpreted as [...] hour and leaks do not appear to be an issue. Intake Vital Signs01/11/18 Height 5 ft 4 in 01/11/18 Weight: 196 lb Intake Visit Reasons: [address] [facility] Vendor: [employer]UX Allergies flecainide Allergy (Verified 01/11/18 09:23) Unknown rosuvastatin [From Crestor] Allergy (Verified 01/11/18 09:23) Unknown sotalol Allergy (Verified 01/11/18 09:23) Unknown Medications Lamotrigine [Lamictal] 200 mg PO DAILY 12/17/14 [History Confirmed 01/11/18] Potassium Chloride [K-Dur] 10 meq PO DAILY 12/17/14 [History Confirmed 01/11/18] Verapamil HCl [Calan Sr] 120 mg PO DAILY 12/17/14 [History Confirmed 01/11/18] Aspirin [Aspirin, Baby] 81 mg PO DAILY@0800 03/04/17 [History Confirmed 01/11/18] ezetimibe 10 mg tablet 10 mg PO QDAY 10/18/17 [History Confirmed 01/11/18] gemfibrozil 600 mg tablet 600 mg PO BID 10/18/17 [History Confirmed 01/11/18] trazodone 100 mg tablet 200 mg PO [...] PO QDAY #90 tab 11/10/17 [Rx Confirmed 01/11/18] [facility] Medical History Long-term use of high-risk medication [...] History Brother CAD (coronary artery disease) from [place] age 52 Father Dementia Mother Cancer Social [...] breathing during sleep, weight loss, sleeping in chair, fatigue, weight gain, frequent colds, seasonal allergies, other, headache(s) or orthopnea EETM Ear Nose Throat Mouth: Positive nasal discharge; negative hard of hearing, hearing normal, hoarseness, dry mouth in morning, change in vision, itchy eyes, eye pain, swallowing Difficulty, ear pain, nose bleed, headache(s), mouth pain, nasal congestion, post nasal drip, sinus pain, sinus pressure, sore throat or other Cardio Cardiovascular: Negative chest pain, chest pain at rest, chest pain with activity, irregular heart rhythm, edema, shortness of breath when lying down, palpitations, murmur or other [...] weakness or other Psych Psychocological: Negative abnormal sleep pattern, anxiety, thoughts of hurting self/others, hopelessness or other Lymph Lymphatic: Negative easy bleeding, easy bruising, swollen lymph nodes or other Exam Const Constitutional: Positive conversant, cooperative, in no acute respiratory [...] oropharynx is adequate; negative post nasal drip, malodorous breath or oral thrush present Mallampati Score: II: Mallampati Score Neck Neck: Positive normal visual inspection, full ROM, trachea midline and thick neck; negative lymphadenopathy, JVD or tender Chest Wall Chest: Positive normal inspection of the chest and symmetric chest movement; negative increased A/P diameter Resp lung sounds: Positive clear to auscultation, good air exchange, normal expiratory time and normal respiratory effort; negative diminished, wheezes, rhonchi, rales, dullness to percussion or wheeze present on forced exhalation Cardio Cardiac: Positive regular rate, regular rhythm, S1 normal and S2 normal; negative murmur GI GI: Positive normal to inspection, normal bowel sounds and obese; negative distended Genitourinary: Positive deferred Musc Musculoskeletal: Positive steady gait and ROM normal; negative kyphosis or scoliosis Skin Pulmonary Skin Exam: Positive intact; negative rash, lesion, ulcers, erythema, scaly or dermal atrophy Pulses Pulse: Yes pulses normal x4 extremities Extremities Extremities: Yes capillary refill normal, No clubbing, No cyanosis, No edema Neuro Neurologic: Yes conversant, Yes no focal neuro deficits, Yes cooperative, Yes normal cognition, Yes normal coordination, Yes normal concentration, Yes understands [...] Z68.33 01/12/18 1520 <Electronically signed by Yuni HARRIS> Date Yuni HARRIS Cosigner Signature: Date (if applicable) CC: Lydia Copeland DO PULMONARY FUNCTION Observed: 12/21/2017 Status: F Source: [place] REPORT COMP 2:41 PM [facility] RE[facility]IT[facility] Pulmonary Services/Neurology [address] [place] [address] MR#: [id number] Acct: [id number] Name: RIKY DILL Rep #: [id number] : 1955 62 From: Ernesto Webster MD Referring Dr: Ernesto Webster MD Status: REG CLI Ordering Dr: Date: Location: N Sex: F C COMPLETE PULMONARY FUNCTION TEST INTERPRETATION Brief HPI: Patient is a 62 year old female, currently under the care of myself, who presents to [facility] for complete pulmonary function tests secondary to diagnosis of pulmonary hypertension. Respiratory therapist reports good effort and reproducible [...] decreased at 53 % predicted. The airway resistance is normal. Compared to previous pulmonary function tests from 03/16/2017, there has been a significant change in FVC and DLCO. Impression: Mild restrictive ventilatory defect with a symmetric reduction diffusing capacity consistent with possible interstitial lung disease. There has been significant improvement compared to previous study. 12/21/17 1441 <Electronically signed by Ernesto Webster MD> Date Ernesto Webster MD CC: Ernesto Webster MD; Lydia Copeland DO Date Dictated: 12/21/17 1438 Date Transcribed: 12/21/171437 Business Objects Analyst: DAVID Signed PROGRESS Observed: 11/08/2017 Status: COMPLETED Source: [place] 4:08 PM CLINIC OTHER CAMPUS REPOSITORY HNO ID: [id number] Author: Alejandro Magaña Service: (none) Author Type: Physician Type: Progress Notes Filed: 11/09/2017 7:58 PM Note Text: PRIMARY CARE PHYSICIAN: Lydia Copeland DO ([facility]) [address] [facility] [place] [address] REFERRING PHYSICIAN: Stanley Marcos MD ([facility]) [address] [address] Patient Care Team: Lydia Copeland as PCP - General (Internal Medicine) Stanley Marcos as Specialty Alarm Service Technician (Cardiology) Alejandro Magaña as Specialty Alarm Service Technician (Cardiology) Gavin Sr as Specialty Alarm Service Technician (Psychiatry) Michael Segal as Specialty Alarm Service Technician (Internal Medicine) CHIEF COMPLAINT: Evaluation of arrhythmia HISTORY OF PRESENT ILLNESS: Ms. Dill is a 62 year old female who presents today with her for evaluation of arrhythmia. She has a long history of recurrent symptomatic atrial arrhythmias including atrial fibrillation. She also has bicuspid aortic valve that has been followed closely by her physicians. The atrial arrhythmias were refractory to medical therapy, and in 2004 she underwent attempted surgical AF ablation with pulmonary vein isolation procedure at [facility] in [facility]. She states that this procedure was unsuccessful and actually aborted due to inability to get to the heart because of scar tissue. My records from [facility] indicate that she underwent a partial procedure and the left atrial appendage was stapled. She was evaluated by me in 2005 when I was at the [facility]. At that point several antiarrhythmic drugs had failed, including sotalol, flecainide, dofetilide and amiodarone. She underwent AF catheter ablation with PVAI on 10/11/2006. She states that she began experiencing palpitations approximately one year ago. At that time the episodes were very brief, lasting only a few seconds. She wore a surveillance monitor and this did not reveal much. She states that the symptoms have been progressively worsening, becoming more frequent and increasing in duration. More recently she has been experiencing symptoms about every 3 days, or 3 or 4 times a week and lasting 5-10 minutes. Symptoms include palpitations, shortness of breath, exertional shortness of breath, fatigue, feeling crappy and lack of energy. She has not been experiencing chest pain, lightheadedness or syncope. He leaves that stress can be a trigger for the palpitations and symptoms. This includes psychological stress but also physical activity, particularly strenuous exertion. She has been evaluated by her local customer relations consultant, Dr. Marcos, and oral anticoagulation has been recommended and evidently prescribed. However, Mrs. Dill states that she has not yet filled this prescription or started the oral anticoagulation therapy yet. She has sleep apnea and states compliance with the prescribed BiPAP therapy. She denies chest pain, orthopnea, PND, lightheadedness or syncope. PAST MEDICAL HISTORY Diagnosis Date - At risk for stroke [id number] = 2 (HTN, female gender) - Bicuspid aortic valve - Bipolar 1 disorder (HCC) - Diverticulosis of colon (without mention of hemorrhage) - Dizziness - Dyspnea - Essential hypertension, benign - Family history of malignant neoplasm of gastrointestinal tract - GERD (gastroesophageal reflux disease) c - HTN (hypertension) - Hyperlipidemia - Internal hemorrhoids without mention of complication - MEGHAN (obstructive sleep apnea) - Other and unspecified hyperlipidemia - Palpitations - Paroxysmal atrial fibrillation (HCC) symptomatic; failed antiarrhythmic drugs; s/p failed surgical PVI 10/2004; s/p AF catheter ablation [facility] 10/11/2006 - Pulmonary HTN - Scarring of lung On Oxygen PRN - Sleep apnea - Tachycardia PAST SURGICAL HISTORY Procedure Laterality Date - AFIB ABLATION/PULM VEIN ISOLATION 10/2004 surgical AF catheter ablation (per patient, failed due to inability to access the heart from scar tissue; ? had RENETTA stapled; [facility] - AFIB ABLATION/PULM VEIN ISOLATION 10/11/2006 AF catheter ablation/PVAI; [facility]; Dr. Magaña - APPENDECTOMY 1960 - BIPAP TITRATION PSG 05/06/2017 - BREAST SURGERY HX Left breast cyst drained - CARDIAC CATH 03/05/2017 normal coronaries; moderate pHTN, mild AI - CARDIAC CATH 08/23/2011 [facility]: LVEF 60%, no obstructive CAD - COLONOSCOP W/ OR W/O BRSH SPEC 10/03/2009 - ECHOCARDIOGRAM 10/07/2017 normal LV size and systolic fxn; LVEF 65%; stage 2 diastolic dysfxn; nl RV size/fxn; mild LAE; mild TR; bicuspid AV, mild to moderate ; mild PI - ECHOCARDIOGRAM 05/24/2007 normal LV size and fxn; LVEF 55%; moderate with 1+ AI - EVENT MONITOR 06/10/2016 30-day monitoring: sinus rhythm, SVT up to 6 beats at 141 bpm - LUMBAR ARTIF DISKECTOMY 2010 - PFT COMPLETE 03/18/2017 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 out of proportion - TUBAL LIGATION HX SOCIAL HISTORY Social History Substance Use Topics - Smoking status: Former Smoker Packs/day: 1.50 Years: 28.00 Types: Cigarettes Start date: 1972 Quit date: 09/20/2000 - Smokeless tobacco: Never Used - Alcohol use No FAMILY HISTORY Problem Relation Age of Onset - Colon Cancer Mother - Heart Father had small heart attack in his 50s - aortic valve replacement [OTHER] Father - Heart Brother - Alcohol/Drug Brother from probable overdose of medications, alcohol - Breast Cancer Paternal Grandmother - Breast Cancer Paternal Aunt - Breast Cancer Other two paternal first cousins - No Ocular Disease No Family History ALLERGIES: ALLERGIES Allergen Reactions - Crestor [Rosuvastat* Myalgia - Flecainide Other: See Comments Patient does not recall, just that this medication did not work - Sotalol Other: See Comments Patient does not recall, just that this medication did not work MEDICATIONS: OXYGEN, HOME THERAPY, Inhale as instructed as directed. 1 liter as needed hydrochlorothiazide (HYDRODIURIL, ESIDRIX) 12.5 mg tablet Take 12.5 mg by mouth once daily. pravastatin (PRAVACHOL) 40 mg tablet Take 40 mg by mouth once daily. metoprolol tartrate, short acting, (LOPRESSOR) 100 mg tablet twice daily. ramipril (ALTACE) 10 mg capsule Take 10 mg by mouth once daily. traZODone (DESYREL) 100 mg tablet twice daily. verapamil SR (CALAN SR, ISOPTIN SR) 120 mg CR tablet sertraline hcl(ZOLOFT 100 MG TAB) take one tablet twice a day LAMOTRIGINE 200 MG TAB Take one(1) tablet daily. MULTIVITAMIN TAB Take one(1) tablet daily. ECOTRIN LOW STRENGTH 81 MG TAB Take one (1) tablet daily. erythromycin ophthalmic ointment Use 1 application in the left eye daily at bedtime. PROPYLENE GLYCOL/PEG 400 (BLINK TEARS LUBRICATING) Eye Drops Use 1 Drop in both eyes three times daily. REVIEW OF SYSTEMS: PAIN ASSESSMENT: Negative for pain, history of chronic pain, or current treatment for a chronic pain condition. GENERAL: Positive for:Weight loss (intentional loss of 30 lbs over the past year) Negative for:Weight gain and Fever or Chills HEENT: Negative for:Hearing Impairment, Nosebleeds and Bleeding Gums NECK: Negative for: Swelling, Pain, Stiffness RESPIRATORY: Positive for: Shortness of breath , Negative for:Blood in Sputum GASTROINTESTINAL: Negative for: Trouble swallowing, Heartburn, Change in bowel habits, Blood in stool, Dark black stools MUSCULOSKELETAL: Negtive for: Muscle or joint pain, stiffness, Joint swelling NEUROLOGIC/PSYCHIATRIC: Negative for: Weakness, Paralysis, Numbness, Tingling, Tremor, Nervousness or anxiety, Depressed mood, Memory loss SKIN: Negative for: Rash, Itching HEMATOLOGICAL/LYMPHATIC: Negative for: Easy bruising, Easy bleeding ENDOCRINE: Negative for: Heat or Cold Intolerance, Excessive Sweating, Frequent Urination, Frequent Thirst PHYSICAL EXAMINATION: BP 114/80 Pulse 66 Resp 16 Ht 5' 4 (1.63m) Wt 200 lb (90.7kg) SpO2 98% BMI 34.31 kg/(m2). General: Well appearing, in no acute distress, speaking in complete sentences. Skin: No clubbing, no cyanosis. Eyes: Extra ocular movements intact, Non-icteric sclerae Neck: no jugular venous distention, Lungs: Clear to auscultation bilaterally, no wheezing or rhonchi. Reduced air exchange Heart: Regular rhythm, S1, S2 normal, +Gr III/ systolic murmur upper sternal borders Extremities: No peripheral edema . Grade 2/4 distal pulses bilaterally. Neuro: Oriented to person, place and time, alert, cooperative, gait coordinated. CARDIOVASCULAR MEDICINE TESTING: Electrocardiogram: Sinus rhythm 66 bpm; normal conduction intervals (FL 188 ms, QRS 96 ms); borderline voltage criteria for LVH I have personally reviewed the Electrocardiogram. ASSESSMENT/PLAN: 1. Paroxysmal atrial fibrillation (HCC) - ICD9: 427.31, ICD10: I48.0 (primary diagnosis) 2. Palpitations - ICD9: 785.1, ICD10: R00.2 3. Tachycardia - ICD9: 785.0, ICD10: R00.0 4. Bicuspid aortic valve - ICD9: 746.4, ICD10: Q23.1 IMPRESSION: Ms. Dill has recurrent symptomatic arrhythmia that represent recurrence of the atrial fibrillation and/or atrial flutter that she has experienced in the past. Cardiac event monitoring last year did not reveal much arrhythmia except very brief SVT, but at that point she was not having quite as frequent or prolonged of symptoms as she is now experiencing. I think that a very good first step would be to repeat the cardiac event monitoring to attempt to document the heart rate and rhythm during her current symptoms. This would help us to target the optimal treatment regimen. If she is experiencing recurrence of atrial arrhythmias we can consider antiarrhythmic drug therapy. Another option would be to consider repeat AF catheter ablation as she did quite well after the previous procedure. I had a detailed discussion with this is Amaris and her regarding my evaluation and recommendations. After our discussion, they expressed their understanding and I answered all their questions to their apparent satisfaction. I would like to see a symptom rhythm correlation by cardiac event monitoring prior to proceeding with a treatment plan. She will have the cardiac event monitoring placed locally in [place]. PLAN AND RECOMMENDATIONS: 1) Cardiac event monitoring to establish symptom-rhythm correlation to guide therapy. A 2-week monitor should suffice. She will contact Dr. Marcos to have this provided in [place]. 2) Depending upon results of the monitoring, will determine the treatment options, which will likely be an antiarrhythmic drug or repeat catheter ablation. 3) Importance of adherence to treatment for sleep apnea was stressed Return if symptoms worsen or fail to improve. Alejandro Magaña MD 11/08/2017 CNOV Observed: 11/08/2017 Status: COMPLETED Source: [facility] 3:00 PM CLINIC OTHER CAMPUS REPOSITORY Office Visit (AGCARDPHRA) RIKY DILL ([id number]) 1955 F Date Time Provider Department 11/08/17 3:00 PM ALEJANDRO MAGAÑA During your visit today, we recorded the following information about you: Pulse Respiration Blood pressure Weight 66/minute 16/minute 114/80 90.7 kg Height 1.626 m Maribell Sandhu CMA 11/08/2017 3:26 PM Signed Patient states she has been having episodes of fast racing heartbeats, lasting between 5-10 minutes. She denies any cardiac complaints currently. MICHELE Liz MD 11/09/2017 7:58 PM Signed PRIMARY CARE PHYSICIAN: Lydia Copeland DO ([facility]) [address] [place] [address] REFERRING PHYSICIAN: Stanley Marcos MD ([facility]) [address] [address] Patient Care Team: Lydia Copeland as PCP - General (Internal Medicine) Stanley Marcos as Specialty Alarm Service Technician (Cardiology) Alejandro Magaña as Specialty Alarm Service Technician (Cardiology) Gavin Sr as Specialty Alarm Service Technician (Psychiatry) Michael Segal as Specialty Alarm Service Technician (Internal Medicine) CHIEF COMPLAINT: Evaluation of arrhythmia HISTORY OF PRESENT ILLNESS: Ms. Dill is a 62 year old female who presents today with her for evaluation of arrhythmia. She has a long history of recurrent symptomatic atrial arrhythmias including atrial fibrillation. She also has bicuspid aortic valve that has been followed closely by her physicians. The atrial arrhythmias were refractory to medical therapy, and in 2004 she underwent attempted surgical AF ablation with pulmonary vein isolation procedure at [facility] in [facility]. She states that this procedure was unsuccessful and actually aborted due to inability to get to the heart because of ANDquot;scar tissue.ANDquot; My records from [facility] indicate that she underwent a partial procedure and the left atrial appendage was stapled. She was evaluated by me in 2005 when I was at the [facility]. At that point several antiarrhythmic drugs had failed, including sotalol, flecainide, dofetilide and amiodarone. She underwent AF catheter ablation with PVAI on 10/11/2006. She states that she began experiencing palpitations approximately one year ago. At that time the episodes were very brief, lasting only a few seconds. She wore a surveillance monitor and this did not reveal much. She states that the symptoms have been progressively worsening, becoming more frequent and increasing in duration. More recently she has been experiencing symptoms about every 3 days, or 3 or 4 times a week and lasting 5-10 minutes. Symptoms include palpitations, shortness of breath, exertional shortness of breath, fatigue, feeling ANDquot;crappyANDquot; and lack of energy. She has not been experiencing chest pain, lightheadedness or syncope. He leaves that stress can be a trigger for the palpitations and symptoms. This includes psychological stress but also physical activity, particularly strenuous exertion. She has been evaluated by her local customer relations consultant, Dr. Marcos, and oral anticoagulation has been recommended and evidently prescribed. However, Mrs. Dill states that she has not yet filled this prescription or started the oral anticoagulation therapy yet. She has sleep apnea and states compliance with the prescribed BiPAP therapy. She denies chest pain, orthopnea, PND, lightheadedness or syncope. PAST MEDICAL HISTORY Diagnosis Date - At risk for stroke [id number] = 2 (HTN, female gender) - Bicuspid aortic valve - Bipolar 1 disorder (HCC) - Diverticulosis of colon (without mention of hemorrhage) - Dizziness - Dyspnea - Essential hypertension, benign - Family history of malignant neoplasm of gastrointestinal tract - GERD (gastroesophageal reflux disease) c - HTN (hypertension) - Hyperlipidemia - Internal hemorrhoids without mention of complication - MEGHAN (obstructive sleep apnea) - Other and unspecified hyperlipidemia - Palpitations - Paroxysmal atrial fibrillation (HCC) symptomatic; failed antiarrhythmic drugs; s/p failed surgical PVI 10/2004; s/p AF catheter ablation [facility] 10/11/2006 - Pulmonary HTN - Scarring of lung On Oxygen PRN - Sleep apnea - Tachycardia PAST SURGICAL HISTORY Procedure Laterality Date - AFIB ABLATION/PULM VEIN ISOLATION 10/2004 surgical AF catheter ablation (per patient, failed due to inability to access the heart from ANDquot;scar tissueANDquot;; ? had RENETTA stapled; [facility] - AFIB ABLATION/PULM VEIN ISOLATION 10/11/2006 AF catheter ablation/PVAI; [facility]; Dr. Magaña - APPENDECTOMY 1960 - BIPAP TITRATION PSG 05/06/2017 - BREAST SURGERY HX Left breast cyst drained - CARDIAC CATH 03/05/2017 normal coronaries; moderate pHTN, mild AI - CARDIAC CATH 08/23/2011 [facility]: LVEF 60%, no obstructive CAD - COLONOSCOP W/ OR W/O BRSH SPEC 10/03/2009 - ECHOCARDIOGRAM 10/07/2017 normal LV size and systolic fxn; LVEF 65%; stage 2 diastolic dysfxn; nl RV size/fxn; mild LAE; mild TR; bicuspid AV, mild to moderate ; mild PI - ECHOCARDIOGRAM 05/24/2007 normal LV size and fxn; LVEF 55%; moderate with 1+ AI - EVENT MONITOR 06/10/2016 30-day monitoring: sinus rhythm, SVT up to 6 beats at 141 bpm - LUMBAR ARTIF DISKECTOMY 2010 - PFT COMPLETE 03/18/2017 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 out of proportion - TUBAL LIGATION HX SOCIAL HISTORY Social History Substance Use Topics - Smoking status: Former Smoker Packs/day: 1.50 Years: 28.00 Types: Cigarettes Start date: 1972 Quit date: 09/20/2000 - Smokeless tobacco: Never Used - Alcohol use No FAMILY HISTORY Problem Relation Age of Onset - Colon Cancer Mother - Heart Father had small heart attack in his 50s - aortic valve replacement [OTHER] Father - Heart Brother - Alcohol/Drug Brother from probable overdose of medications, alcohol - Breast Cancer Paternal Grandmother - Breast Cancer Paternal Aunt - Breast Cancer Other two paternal first cousins - No Ocular Disease No Family History ALLERGIES: ALLERGIES Allergen Reactions - Crestor [Rosuvastat* Myalgia - Flecainide Other: See Comments Patient does not recall, just that this medication ANDquot;did not workANDquot; - Sotalol Other: See Comments Patient does not recall, just that this medication ANDquot;did not workANDquot; MEDICATIONS: OXYGEN, HOME THERAPY, Inhale as instructed as directed. 1 liter as needed hydrochlorothiazide (HYDRODIURIL, ESIDRIX) 12.5 mg tablet Take 12.5 mg by mouth once daily. pravastatin (PRAVACHOL) 40 mg tablet Take 40 mg by mouth once daily. metoprolol tartrate, short acting, (LOPRESSOR) 100 mg tablet twice daily. ramipril (ALTACE) 10 mg capsule Take 10 mg by mouth once daily. traZODone (DESYREL) 100 mg tablet twice daily. verapamil SR (CALAN SR, ISOPTIN SR) 120 mg CR tablet sertraline hcl(ZOLOFT 100 MG TAB) take one tablet twice a day LAMOTRIGINE 200 MG TAB Take one(1) tablet daily. MULTIVITAMIN TAB Take one(1) tablet daily. ECOTRIN LOW STRENGTH 81 MG TAB Take one (1) tablet daily. erythromycin ophthalmic ointment Use 1 application in the left eye daily at bedtime. PROPYLENE GLYCOL/PEG 400 (BLINK TEARS LUBRICATING) Eye Drops Use 1 Drop in both eyes three times daily. REVIEW OF SYSTEMS: PAIN ASSESSMENT: Negative for pain, history of chronic pain, or current treatment for a chronic pain condition. GENERAL: Positive for:Weight loss (intentional loss of 30 lbs over the past year) Negative for:Weight gain and Fever or Chills HEENT: Negative for:Hearing Impairment, Nosebleeds and Bleeding Gums NECK: Negative for: Swelling, Pain, Stiffness RESPIRATORY: Positive for: Shortness of breath , Negative for:Blood in Sputum GASTROINTESTINAL: Negative for: Trouble swallowing, Heartburn, Change in bowel habits, Blood in stool, Dark black stools MUSCULOSKELETAL: Negtive for: Muscle or joint pain, stiffness, Joint swelling NEUROLOGIC/PSYCHIATRIC: Negative for: Weakness, Paralysis, Numbness, Tingling, Tremor, Nervousness or anxiety, Depressed mood, Memory loss SKIN: Negative for: Rash, Itching HEMATOLOGICAL/LYMPHATIC: Negative for: Easy bruising, Easy bleeding ENDOCRINE: Negative for: Heat or Cold Intolerance, Excessive Sweating, Frequent Urination, Frequent Thirst PHYSICAL EXAMINATION: BP 114/80 Pulse 66 Resp 16 Ht 5' 4ANDquot; (1.63m) Wt 200 lb (90.7kg) SpO2 98% BMI 34.31 kg/(m2). General: Well appearing, in no acute distress, speaking in complete sentences. Skin: No clubbing, no cyanosis. Eyes: Extra ocular movements intact, Non-icteric sclerae Neck: no jugular venous distention, Lungs: Clear to auscultation bilaterally, no wheezing or rhonchi. Reduced air exchange Heart: Regular rhythm, S1, S2 normal, +Gr III/ systolic murmur upper sternal borders Extremities: No peripheral edema . Grade 2/4 distal pulses bilaterally. Neuro: Oriented to person, place and time, alert, cooperative, gait coordinated. CARDIOVASCULAR MEDICINE TESTING: Electrocardiogram: Sinus rhythm 66 bpm; normal conduction intervals (FL 188 ms, QRS 96 ms); borderline voltage criteria for LVH I have personally reviewed the Electrocardiogram. ASSESSMENT/PLAN: 1. Paroxysmal atrial fibrillation (HCC) - ICD9: 427.31, ICD10: I48.0 (primary diagnosis) 2. Palpitations - ICD9: 785.1, ICD10: R00.2 3. Tachycardia - ICD9: 785.0, ICD10: R00.0 4. Bicuspid aortic valve - ICD9: 746.4, ICD10: Q23.1 IMPRESSION: Ms. Dill has recurrent symptomatic arrhythmia that represent recurrence of the atrial fibrillation and/or atrial flutter that she has experienced in the past. Cardiac event monitoring last year did not reveal much arrhythmia except very brief SVT, but at that point she was not having quite as frequent or prolonged of symptoms as she is now experiencing. I think that a very good first step would be to repeat the cardiac event monitoring to attempt to document the heart rate and rhythm during her current symptoms. This would help us to target the optimal treatment regimen. If she is experiencing recurrence of atrial arrhythmias we can consider antiarrhythmic drug therapy. Another option would be to consider repeat AF catheter ablation as she did quite well after the previous procedure. I had a detailed discussion with this is Amaris and her regarding my evaluation and recommendations. After our discussion, they expressed their understanding and I answered all their questions to their apparent satisfaction. I would like to see a symptom rhythm correlation by cardiac event monitoring prior to proceeding with a treatment plan. She will have the cardiac event monitoring placed locally in [place]. PLAN AND RECOMMENDATIONS: 1) Cardiac event monitoring to establish symptom-rhythm correlation to guide therapy. A 2-week monitor should suffice. She will contact Dr. Marcos to have this provided in [place]. 2) Depending upon results of the monitoring, will determine the treatment options, which will likely be an antiarrhythmic drug or repeat catheter ablation. 3) Importance of adherence to treatment for sleep apnea was stressed Return if symptoms worsen or fail to improve. Alejandro Magaña MD 11/08/2017 Alejandro Magaña MD 11/08/2017 4:41 PM Signed Atrial Fibrillation What is atrial fibrillation? Atrial fibrillation (also called A-fib) is a fast or irregular heartbeat that starts in the upper chambers of the heart. The abnormal heartbeat affects the ability of the heart to pump blood to the rest of the body. What is the cause? An electrical signal in your heart starts each heartbeat, causing the heart muscle to squeeze (contract). Normally, this signal starts in the upper right chamber of the heart (the right atrium) at a place called the sinus node. The signal then follows normal pathways to the upper left atrium and to the lower chambers of the heart (the ventricles). When you have atrial fibrillation, electrical signals don?t start in the normal place in the right atrium and don?t travel normally. This can cause the upper chambers of the heart (atria) to beat very fast and not in a normal pattern. Common causes of heart rhythm problems are conditions that damage the heart, like coronary artery disease, heart attack, or heart failure. Problems with the heart valves are another common cause. The heart has 4 valves that open and close with each heartbeat to help blood flow in the right direction through the heart. Other causes of atrial fibrillation include: -Health problems, such as a stroke, lung disease, diabetes, overactive thyroid gland, or high blood pressure -Abuse of alcohol or drugs, such as cocaine Sometimes no cause can be found. What are the symptoms? Some people don?t have any symptoms. When atrial fibrillation does cause symptoms, the most common ones are: -Feeling like your heart is beating too fast or too hard or skipping beats or fluttering -Feeling tired or weak all the time Symptoms that are more serious include: -Chest pain -Trouble breathing -Lightheadedness or dizziness -Confusion How is it diagnosed? Your healthcare provider will ask about your symptoms and medical history and examine you. Tests may include: -An ECG (also called an EKG), which measures and records your heartbeat. You may have an ECG while you are resting or while you exercise on a treadmill. You may also be asked to wear a small portable ECG monitor for a few days or sometimes a couple weeks. -Blood tests -An echocardiogram, which uses sound waves (ultrasound) to show the structures of the heart, like the valves How is it treated? The goal of treatment is to help the heart keep a normal rhythm. Your treatment depends on the cause of the atrial fibrillation, how often you have symptoms, and the severity of your symptoms. If you have no symptoms, or your symptoms are fairly mild, you may not need treatment. For some people atrial fibrillation lasts just a short time and the heart goes back to a normal rhythm on its own. If you keep having spells of atrial fibrillation, treatment may help keep you from having so many spells. If a health problem like a leaky heart valve is causing the atrial fibrillation, treating the health problem may also treat the fast or irregular heartbeat. Other possible treatments are: -Medicine: Your provider may prescribe medicine to slow or restore a normal heart rate and rhythm. You may also need medicine to prevent blood clots because when the heart beats irregularly, some of the blood can stay in the upper chambers too long. This makes it easier for blood clots to form, increasing your risk of having a stroke or heart attack. -Electrical cardioversion: First, you will be given medicine called anesthesia to keep you from feeling pain during the procedure. Then your chest will be given an electrical shock. The electrical shock should make your heart start beating normally again. You may need medicine to keep your heart rhythm normal after this procedure. -Ablation: Ablation is a procedure that uses a small tube called a catheter to deliver energy to the inside of the heart. The energy (usually radio waves) scars small areas of heart tissue. The scars block abnormal electrical pathways and help you have a normal heart rhythm. With some types of ablation treatment, you will also need a pacemaker. A pacemaker is an electronic device put under the skin of your chest to help control the heartbeat. How can I take care of myself? -Take your medicines as prescribed. -Keep your appointments for follow-up blood tests. -Make sure your healthcare provider knows about changes in your diet or medical condition. Your provider also needs to know about all prescription and nonprescription medicines, herbs, or supplements that you are taking. Some medicines may interact with your heart medicine or increase your risk for atrial fibrillation. -If you want to drink alcohol, ask your provider how much is safe for you to drink. -Follow your healthcare provider's instructions. Ask your provider: ?How and when you will hear your test results ?How long it will take to recover ?What activities you should avoid and when you can return to your normal activities ?How to take care of yourself at home ?What symptoms or problems you should watch for and what to do if you have them -Make sure you know when you should come back for a checkup. How can I help prevent atrial fibrillation? The best prevention is to have a heart-healthy lifestyle. -Keep a healthy weight. -Eat a healthy diet that is low in sodium and saturated and trans fat. -Stay fit with the right kind of exercise for you. -Decrease stress. -Don?t smoke. -Limit your use of alcohol. If you have heart disease or high blood pressure, follow your healthcare provider's instructions for treatment. Developed by [employer]. Published by Peer[employer]. Copyright ?2014 [employer] and/or one of its subsidiaries. All rights reserved. Referring Provider: STANLEY MARCOS [[id number]] Allergies As of Date: 11/08/2017 Noted Allergy Reaction CRESTOR (ROSUVASTATIN CALCIUM) 10/21/2017 17 - Myalgia FLECAINIDE 10/21/2017 14 - Other: See Comments Comments: Patient does not recall, just that this medication did not work SOTALOL 10/21/2017 14 - Other: See Comments Comments: Patient does not recall, just that this medication did not work Date Reviewed: 11/08/2017 Reviewed by: Alejandro Magaña - Fully Assessed Reason for Visit: New Patient [172] Cmt: Referred by Dr. Marcos for afib Primary Visit Diagnosis:Paroxysmal atrial fibrillation (HCC) [I48.0] Other Visit Diagnoses:Palpitations [R00.2] Tachycardia [R00.0] Bicuspid aortic valve [Q23.1] At risk for stroke [Z91.89] Order(s):EKG WITH INTERPRETATION [85782ZTB] Order #: [id number]: 1 Prescriptions as of 11/08/2017 Sig: OXYGEN (HOME THERAPY) Inhale as instructed as dire* HYDROCHLOROTHIAZIDE 12.5 MG T* Take 12.5 mg by mouth once da* PRAVASTATIN 40 MG TABLET Take 40 mg by mouth once yuliet* METOPROLOL TARTRATE 100 MG TA* twice daily. RAMIPRIL 10 MG CAPSULE Take 10 mg by mouth once yuliet* TRAZODONE 100 MG TABLET twice daily. VERAPAMIL ER (SR) 120 MG TABL* * ZOLOFT 100 MG TABLET take one tablet twice a day * LAMOTRIGINE 200 MG TABLET Take one(1) tablet daily. * MULTIVITAMIN TABLET Take one(1) tablet daily. * ECOTRIN LOW STRENGTH 81 MG TA* Take one (1) tablet daily. ERYTHROMYCIN 5 MG/GRAM (0.5 %* Use 1 application in the left* BLINK TEARS LUBRICATING EYE D* Use 1 Drop in both eyes three* Medication notes this encounter ERYTHROMYCIN 5 MG/GRAM (0.5 %) EYE OINTMENT >> Maribell Sandhu CMA 11/08/2017 3:23 PM >> MARIBELL SANDHU CMA Nov 08, 2017 3:23 PM completed BLINK TEARS LUBRICATING EYE DROPS >> Maribell Sandhu CMA 11/08/2017 3:24 PM >> MARIBELL SANDHU CMA Nov 08, 2017 3:24 PM completed Problem List As Of Date 11/08/2017 Noted Resolved HYPERTENSION [I10] ATRIAL FIBRILLATION: s/p AF catheter ablation/P* HYPERLIPIDEMIA [E78.5] Family History of Malignant Neoplasm of Gastroi*INVALID FOR* Chalazion of left upper eyelid [H00.14] INVALID FOR* Meibomian gland dysfunction (MGD), bilateral, b*INVALID FOR* Vitreous floater [H43.399] INVALID FOR*10/17/2015 Dry eye syndrome [H04.129] INVALID FOR* Vitreous floaters [H43.399] INVALID FOR* Hordeolum internum of left lower eyelid [H00.02*INVALID FOR* Atherosclerosis of coronary artery [I25.10] INVALID FOR* More... HTN (hypertension) [I10] INVALID FOR* Paroxysmal atrial fibrillation (HCC) [I48.0] Palpitations [R00.2] Tachycardia [R00.0] Bicuspid aortic valve [Q23.1] Other instructions from your clinician: Atrial Fibrillation What is atrial fibrillation? Atrial fibrillation (also called A-fib) is a fast or irregular heartbeat that starts in the upper chambers of the heart. The abnormal heartbeat affects the ability of the heart to pump blood to the rest of the body. What is the cause? An electrical signal in your heart starts each heartbeat, causing the heart muscle to squeeze (contract). Normally, this signal starts in the upper right chamber of the heart (the right atrium) at a place called the sinus node. The signal then follows normal pathways to the upper left atrium and to the lower chambers of the heart (the ventricles). When you have atrial fibrillation, electrical signals don?t start in the normal place in the right atrium and don?t travel normally. This can cause the upper chambers of the heart (atria) to beat very fast and not in a normal pattern. Common causes of heart rhythm problems are conditions that damage the heart, like coronary artery disease, heart attack, or heart failure. Problems with the heart valves are another common cause. The heart has 4 valves that open and close with each heartbeat to help blood flow in the right direction through the heart. Other causes of atrial fibrillation include: -Health problems, such as a stroke, lung disease, diabetes, overactive thyroid gland, or high blood pressure -Abuse of alcohol or drugs, such as cocaine Sometimes no cause can be found. What are the symptoms? Some people don?t have any symptoms. When atrial fibrillation does cause symptoms, the most common ones are: -Feeling like your heart is beating too fast or too hard or skipping beats or fluttering -Feeling tired or weak all the time Symptoms that are more serious include: -Chest pain -Trouble breathing -Lightheadedness or dizziness -Confusion How is it diagnosed? Your healthcare provider will ask about your symptoms and medical history and examine you. Tests may include: -An ECG (also called an EKG), which measures and records your heartbeat. You may have an ECG while you are resting or while you exercise on a treadmill. You may also be asked to wear a small portable ECG monitor for a few days or sometimes a couple weeks. -Blood tests -An echocardiogram, which uses sound waves (ultrasound) to show the structures of the heart, like the valves How is it treated? The goal of treatment is to help the heart keep a normal rhythm. Your treatment depends on the cause of the atrial fibrillation, how often you have symptoms, and the severity of your symptoms. If you have no symptoms, or your symptoms are fairly mild, you may not need treatment. For some people atrial fibrillation lasts just a short time and the heart goes back to a normal rhythm on its own. If you keep having spells of atrial fibrillation, treatment may help keep you from having so many spells. If a health problem like a leaky heart valve is causing the atrial fibrillation, treating the health problem may also treat the fast or irregular heartbeat. Other possible treatments are: -Medicine: Your provider may prescribe medicine to slow or restore a normal heart rate and rhythm. You may also need medicine to prevent blood clots because when the heart beats irregularly, some of the blood can stay in the upper chambers too long. This makes it easier for blood clots to form, increasing your risk of having a stroke or heart attack. -Electrical cardioversion: First, you will be given medicine called anesthesia to keep you from feeling pain during the procedure. Then your chest will be given an electrical shock. The electrical shock should make your heart start beating normally again. You may need medicine to keep your heart rhythm normal after this procedure. -Ablation: Ablation is a procedure that uses a small tube called a catheter to deliver energy to the inside of the heart. The energy (usually radio waves) scars small areas of heart tissue. The scars block abnormal electrical pathways and help you have a normal heart rhythm. With some types of ablation treatment, you will also need a pacemaker. A pacemaker is an electronic device put under the skin of your chest to help control the heartbeat. How can I take care of myself? -Take your medicines as prescribed. -Keep your appointments for follow-up blood tests. -Make sure your healthcare provider knows about changes in your diet or medical condition. Your provider also needs to know about all prescription and nonprescription medicines, herbs, or supplements that you are taking. Some medicines may interact with your heart medicine or increase your risk for atrial fibrillation. -If you want to drink alcohol, ask your provider how much is safe for you to drink. -Follow your healthcare provider's instructions. Ask your provider: ?How and when you will hear your test results ?How long it will take to recover ?What activities you should avoid and when you can return to your normal activities ?How to take care of yourself at home ?What symptoms or problems you should watch for and what to do if you have them -Make sure you know when you should come back for a checkup. How can I help prevent atrial fibrillation? The best prevention is to have a heart-healthy lifestyle. -Keep a healthy weight. -Eat a healthy diet that is low in sodium and saturated and trans fat. -Stay fit with the right kind of exercise for you. -Decrease stress. -Don?t smoke. -Limit your use of alcohol. If you have heart disease or high blood pressure, follow your healthcare provider's instructions for treatment. Developed by PeerJ. Published by PeerJ. Copyright ?2014 [employer] and/or one of its subsidiaries. All rights reserved. Visit Notes: >> Maribell Sandhu Mon Nov 08, 2017 3:18 PM Status: Signed Patient states she has been having episodes of fast racing heartbeats, lasting between 5-10 minutes. She denies any cardiac complaints currently. Maribell Sandhu [facility] Disposition: Return if symptoms worsen or fail to improve. Follow-up and Disposition History Recorded Letter Text Encounter Status:Closed by ALEJANDRO MAGAÑA MD on 11/09/17 CARDIOLOGY VISIT Observed: 10/19/2017 Status: F Source: [place] REPORT 11:37 AM [facility] [address] [place] [address]. [address] [place] [address] OFFICE VISIT Date of Service: 10/19/17 MR#: [id number] Acct: [id number] Name: RIKY DILL Rep #: [id number] : 1955 Provider: Stanley Marcos MD Age/Sex: 62/F Location: [facility] [place] Status: Signed HPI 3 M FU: Chief Complaint: Routine follow-up Details: Referring physician: Dr. Jeanne Quinones It was a pleasure seeing your patient, Riky Dill, today in our office. She Is a 62-year-old female and is returning for followup of her atrial fibrillation status post pulmonary vein isolation at the [facility] in 2003, mild coronary disease status post non ST elevation myocardial infarction Status post catheterization at [facility] in August 2011, and bicuspid aortic valve with mildly dilated ascending aorta and mild aortic insufficiency by echocardiogram dated 07/2012.. CT scan of the chest demonstrated no significant aortic dilatation according to the report. since her last visit, the patient has had progressively worsening dyspnea on exertion, shortness of breath, positional lightheadedness and dizziness, and hypotension. She has had no presyncope or syncope episodes, and no anginal symptoms. Patient got fairly winded just coming in from the parking lot today despite taking the elevator. She denies any sentinel events. patient underwent left and right heart catheterization at [facility] by myself on 03/05/17 which demonstrated [...] and tolerating her medicines well. Returns for follow-up, and complains of intermittent palpitations occurring more frequently over the last several weeks to months. She reports palpitations lasting anywhere between a few seconds up to several minutes which are consistent with her previous atrial fibrillation. [...] of 102 and an HDL of 58. Intake Vital Signs10/19/17 Height 5 ft 4 in 10/19/17 Weight: 202 lb 10/19/17 Body Mass Index (BMI) 34.7 10/19/17 Blood Pressure 108/68 10/19/17 Respiratory Rate 16 10/19/17 Pulse Rate 58 Intake Visit Reasons: 3 M FU Allergies flecainide Allergy (Verified 03/04/17 14:02) Unknown rosuvastatin [From Crestor] Allergy (Verified 03/04/17 14:02) Unknown sotalol Allergy (Verified 03/04/17 14:02) Unknown Medications Lamotrigine [Lamictal] 200 mg PO DAILY 12/17/14 [History Confirmed 10/19/17] Metoprolol Tartrate [Lopressor (Beta Lucila)] 100 mg PO BID 12/17/14 [History Confirmed [...] 10 mg PO QDAY 10/19/17 [History Confirmed 10/19/17] sertraline 100 mg tablet 100 mg PO BID tab 10/19/17 [History Confirmed 10/19/17] PFSH Medical History Non-rheumatic aortic stenosis (Chronic) Secondary pulmonary arterial hypertension (Chronic) Palpitation (Acute) Hypertension (Chronic) Persistent atrial fibrillation (Chronic) Dyslipidemia (Chronic) Bicuspid aortic valve (Chronic) Bipolar disorder (Chronic) GERD (gastroesophageal reflux disease) (Chronic) Non-ST elevation (NSTEMI) myocardial infarction (Chronic 08/21/11) Obstructive sleep apnea (Chronic) Surgical History H/O discectomy (Chronic) History of maze procedure (Chronic) History of right and left heart catheterization (Chronic 03/05/17) history of pulmonary vein isolation (Chronic) Family History Brother CAD (coronary artery disease) from [place] age 52 Social History Smoking Status: Former smoker ROS Const Const: Negative for difficulty sleeping, fatigue, excessive sweating, weakness, frequent falls or headache(s) Eyes Eyes: Negative for loss of peripheral vision, transient loss of vision, blurry vision or double vision ENT ENT: Negative for Nosebleed/epistaxis, Negative for balance problems, Negative for headache(s), Negative for dizziness Cardio Chest Pain: No Palpitations: Positive for Yes (for the past 5 months, she has had weekly episodes of palpitations rate>150) Palpitations: fast, pounding Edema: None Muscle aches with walking: None Additional Details: Has SOB when she has her tachycardia Resp Respiratory: Negative for SOB with activity, SOB at rest, SOB orthopnea\SOB lying down or paroxysmal nocturnal dyspnea Additional Details: uses bi-pap GI GI: Negative nausea or heartburn : Negative for hematuria Musc Musc: Negative for muscle aches/ myalgia, muscle weakness, joint pain or balance problems Skin Skin: Negative non-healing lesions, unusual bruising or rash Neuro Neuro: Negative for weakness, Negative for frequent falls, Negative for blurry vision, Negative for headache(s), Negative for dizziness, Negative for lightheadedness, Negative for orthostatic symptoms, [...] is status post Maze procedure and 2 previous atrial fibrillation ablation procedures, which have helped fairly well up until the last several months when the patient has had recurrent intermittent palpitations which are self-limiting. Patient symptoms last anywhere between a few seconds up to a few minutes, and are consistent with her previous atrial fibrillation. Given the patient's long history of atrial fibrillation, and the fact that she is on high-dose beta-lucila and verapamil for heart rate and rhythm control, I am hesitant to place the patient on antiarrhythmic therapy as this is beyond my normal and customary skill set. I recommended the patient be referred to Dr. Magaña [facility] for further atrial fibrillation evaluation and possible repeat A. fib ablation procedure if indicated. If not indicated I would appreciate his assistance with antiarrhythmic therapy going [...] fairly well-controlled. Continue Zetia and gemfibrozil. 4. Return office in 6 months. This note was generated using a voice recognition system and there may be incorrect words, spelling or punctuation that were not noted when reviewing the office note prior to saving. Plan Detail Follow Up 6 Months ([place]) Coding Level of Care Code Off vis,est,level 3 10/19/17 1137 <Electronically signed by Stanley Marcos MD> Date Stanley Marcos MD Cosigner Signature: Date (if applicable) CC: ECHOCARDIOGRAM COMPLETE Observed: 10/11/2017 Status: F Source: [place] 10:39 AM [facility] Cardiovascular Services [address] [place] [id number] Echo Complete 10/07/17 1045 MR#: [id number] Acct: [id number] Name: RIKY DILL Rep #: [id number] : 1955 62 From: Stanley Marcos MD Attending Dr: Stanley Marcos MD Status: REG [facility] Ordering Dr: Stanley Mracos MD Date: 10/07/17 Location: [facility] Sex: F C Admitted: Reason For Study: PHTN, MELISSA disorder Procedure This was a 2D Doppler, Color Flow transthoracic echocardiogram. Exam performed in department. Left Ventricle Normal size and thickness. The estimated ejection fraction is 65 %. Stage 2 diastolic dysfunction. No regional wall motion abnormalities noted. Right Ventricle Normal size and thickness. Normal systolic function. Atria The left atrium is mildly enlarged. Normal right atrium. Normal atrial septum. Mitral Valve The mitral valve is structurally normal. No prolapse or stenosis seen. Tricuspid Valve Normal tricuspid valve. Mild (1+) tricuspid valve insufficiency. Right ventricular systolic pressure estimated to be 32 mmHg. Aortic Valve Bicuspid aortic valve. Moderate focal aortic valve thickening. Moderate restriction of the aortic valve. Mild focal aortic valve calcification. Mild to moderate aortic stenosis. Peak aortic valve gradient 33 mmHg. Mean aortic valve gradient 17 mmHg. Calculated aortic valve area (continuity equation) is 1.2 cm2. Pulmonic Valve Normal pulmonic valve. Mild (1+) pulmonic valve insufficiency. Great Vessels Normal aortic root. Normal arch. Normal inferior vena cava. Inferior vena cava collapse with sniff. Pericardium/Pleural No pericardial effusion. MMode/2D Measurements AND Calculations LVIDd: 4.2 cm IVSd: 1.1 cm LVOT diam: 2.0 cm LVIDs: 3.0 cm LVPWd: 1.1 cm LVOT area: 3.2 cm2 RVDd: 3.2 cm FS: 29.8 % LA dimension: 3.8 cm LAV(MOD-bp): 66.9 ml Aortic Valve Planimetry: 1.3 cm2 LAV(MOD-bp) Indexed: 34.3 ml/m2 LAV(MOD-sp2): 65.2 ml LAV(MOD-sp4): 65.0 ml LA A4 area: 20.1 cm2 Time Measurements MV dec time: 0.24 sec Doppler Measurements AND Calculations MV E max darius: 76.4 cm/sec Lat Peak E' Darius: 10.8 cm/sec Med Peak E' Darius: 5.6 cm/sec MV A max darius: 47.9 cm/sec E/E' lat: 7.0 E/E' med: 13.8 MV E/A: 1.6 Ao V2 max: 285.0 cm/sec LV V1 max: 104.5 cm/sec SV(LVOT): 86.9 ml Ao max P.5 mmHg LV V1 max P.4 mmHg Ao V2 mean: 196.4 cm/sec LV V1 mean P.5 mmHg Ao mean P.2 mmHg LV V1 mean: 75.1 cm/sec Ao V2 VTI: 64.7 cm LV V1 VTI: 26.7 cm CELESTE(I,D): 1.3 cm2 CELESTE(V,D): 1.2 cm2 PA V2 max: 77.6 cm/sec TR max darius: 259.1 cm/sec TR max P.9 mmHg Interpretation Summary The estimated ejection fraction is 65 %. Stage 2 diastolic dysfunction. The left atrium is mildly enlarged. Mild (1+) tricuspid valve insufficiency. Right ventricular systolic pressure estimated to be 32 mmHg. Bicuspid aortic valve. Mild to moderate aortic stenosis. Compared to echo report dated 08/26/2016, no appreciable changes noted. Ordering Physician: Stanley Marcos Referring Physician: Lydia Copeland Performed By: Charlene Banks, RDCS, RVT 10/11/17 1039 Date Stanley Marcos MD CC: Stanley Marcos MD; Lydia Copeland DO Date Dictated: 10/07/17 1045 Date Transcribed: 10/11/17 1039 Business Objects Analyst: Signed LIVER PROFILE Collected: 10/07/2017 Status: F Source: [place] 10:16 AM [facility] Order Comment: Order Date: 08/20/17 Order Info: [id number] - *Hepatic Function Panel Order Info: [id number] - *Lipid Profile CC PCP Comments: 12 hours fasting, may have water. TYPE CODE TESTS RESULT OUT OF RANGE REFERENCE UNITS LAB L501.1500 6.4-8.2 g/dL Normal T PROT 7.3 LAB L501.1800 3.4-5.0 g/dL Normal ALB 3.8 Result Comment: Please note revised Albumin AND Globulin reference range effective 2017. LAB L501.1950 2.2-4.2 g/dL Normal GLOB 3.5 LAB L501.4100 15-37 U/L Low AST 13 LAB L501.4305 45-117 U/L Normal ALK P 87 LAB L501.4405 12-78 U/L Normal ALT 17 LAB L501.4600 0.20-1.00 mg/dL Normal T BILI 0.40 LAB L501.4700 0.00-0.30 mg/dL Normal D BILI 0.08 Performed By: #### L500.3400 #### [facility] [address] [place], [address] LIPID PROFILE Collected: 10/07/2017 Status: F Source: [place] 10:16 AM [facility] Order Comment: Order Date: 08/20/17 Order Info: [id number] - *Hepatic Function Panel Order Info: [id number] - *Lipid Profile CC PCP Comments: 12 hours fasting, may have water. TYPE CODE TESTS RESULT OUT OF RANGE REFERENCE UNITS LAB L501.4900 200 mg/dL Normal CHOL 179 Result Comment: <200 mg/dL Desirable 200-240 mg/dL Borderline >240 mg/dL High Risk LAB L501.5000 mg/dL Normal TRIG 95 Result Comment: The drugs N-Acetylcysteine and Metamizole may falsely depress this assay. Serum Triglycerides Reference Interval Normal <150 mg/dL Borderline high 150 - 199 mg/dL High 200 - 499 mg/dL Very High > or = 500 mg/dL LAB L501.6400 mg/dL Normal HDL 58 Result Comment: The drugs N-Acetylcysteine and Metamizole may falsely depress this assay. Reference Range HDL <40 mg/dL Low HDL Cholesterol HDL >or= 60 mg/dL High HDL Cholesterol LAB L501.6500 0-130 mg/dL Normal LDL 102 LAB L501.6600 5-40 mg/dL Normal VLDL 19 Performed By: #### L500.4100 #### [facility] [address] [place], [address] ALLERGIES ALLERGIES DATE TYPE / CODE NAME / CODE REACTION SEVERITY SOURCE 07/12/2018 Drug No Known Unknown [place] Allergy/416 Allergies/[id number] [facility] 097974([facility](RXNORM) [facility] ED CT) Repository 04/22/2018 Drug sotalol/[id number]( Unknown Unknown [place] Allergy/416 RXNORM) [facility] 329904([facility] ED CT) Repository 04/22/2018 Drug flecainide/[id number] Unknown Unknown [place] Allergy/416 83(RXNORM) [facility] 472741([facility] ED CT) Repository 04/22/2018 Drug rosuvastatin/K95059 Unknown Unknown [place] Allergy/416 9902(RXNORM) [facility] 891754([facility] ED CT) Repository 10/21/2017 DRUG ROSUVASTATIN Myalgia [facility] INGREDI/419 CALCIUM Other [place] 299297([facility] Repository ED CT) 10/21/2017 DRUG FLECAINIDE OTHER: SEE C [facility] INGREDI/419 Other [place] 231860([facility] Repository ED CT) 10/21/2017 DRUG SOTALOL OTHER: SEE C [facility] INGREDI/419 Other [place] 644274([facility] Repository ED CT) NG/[id number] ROSUVASTATIN [facility] Repository NG/[id number] FLECAINIDE [facility] [facility]) Repository NG/[id number] SOTALOL [facility] 6([employer] [facility] CT) Repository ENCOUNTERS ENCOUNTERS ADMIT/DISCHARGE ACCOUNT NUMBER ADMITTING ENCOUNTER LOCATION SOURCE CLASS 08/16/2018 [id number] Ambulatory Building:[facility] Repository 08/16/2018 [id number] Ambulatory [facility] ding:HPRAD Repository 07/12/2018/07/12/20 [id number] Ambulatory BMSBuilding: [place] [facility] BMS.[facility] Repository 04/27/2018 [id number] Ambulatory [facility] ding:[facility] Repository 04/27/2018 [id number] Ambulatory BMSBuilding: [facility] Repository 04/22/2018/04/22/20 [id number] Ambulatory BMSBuilding: [place] [address] Repository 04/21/2018 [id number] Ambulatory [facility] ding:MTLAB Repository 02/17/2018 [id number] Ambulatory [facility] ding:PSN Repository 02/17/2018 [id number] Ambulatory BMSBuilding: [facility] Repository 01/11/2018/01/12/20 [id number] Ambulatory BMSBuilding: [place] 18 BMS.[facility] Repository 12/21/2017 [id number] Ambulatory [facility] ding:PSN Repository 12/21/2017 [id number] Ambulatory BMSBuilding: [facility] Repository 11/08/2017/11/08/19 [id number] Ambulatory [address] Repository 11/08/2017/11/08/19 [id number] Ambulatory [facility] [address] [place] [address] System MEDICAL Repository CENTERBuildi ng:AGCARDPHR A 10/19/2017/10/19/19 [id number] Ambulatory BMSBuilding: [place] [address] Repository 10/18/2017 [id number] Ambulatory BMSBuilding: [place] [facility] Repository 10/07/2017 [id number] Ambulatory [facility] ding:[facility] Repository 10/07/2017 [id number] Ambulatory BMSBuilding: [facility] Repository FUNCTIONAL STATUS FUNCTIONAL STATUS No Functional Status Records FoundEQUIPMENT EQUIPMENT No Equipment Records FoundPAYERS PAYERS ENCOUNTER GUARANTOR PAYER SUBSCRIBER SOURCE 08/16/2018 Riky Pierson Primary Osito BroussardB: OHIP Practices TaylorDOB: Insurance:[place] [id number] Repository /BSPolicy Number: [facility] [id number] RdWest [place], [place] Rd[place], [place] Date:1195-45-13Wthf [address]98[address]Vzn: [phone]: ([phone]) Name:[phone] (HP) [phone] [place] [address] ()Tel: [phone]: ([phone] 08/16/2018 Secondary Riky E OHIP Practices Insurance:Medicare TaylorDOB: Repository Secondary UnitPolicy [id number] Number: [facility] [id number] RdWest [place], [place] Date:6234-80-74Emgw 558[address]Gel: ([phone]) Name:AGED OR DISABLED CARER [phone] (HP) [address]Lvwqthgr, [place] [address]ZD: 08/16/2018 Tertiary Osito Dunn: OHIP Practices Insurance:[place] [id number] Repository /BSPolicy Number: 8 [facility] [id number] RdWest [place], [place] Date: [address]Wwp: [id number] ~(4 Name:[address] (HP) [address] [place] [address] [phone]: 08/16/2018 RIKY Pierson Primary Osito Conrad [id number] [facility] y Number: [id number], [place] [id number] Repository [address]Iuw: ([phone]) Date:4829-29-81TA [phone] () [address] [place] [address] [place] [address]QP: 08/16/2018 Secondary RIKY E [place] Insurance:MEDICARE TAYLORDOB: Community PART A [facility] [id number] Hospital Number: Repository [id number] Date:2018-08-16 08/16/2018 Tertiary NOT GIVENUNK [place] Insurance:SELF PAY [facility] Number: Effective Repository Date:2018-08-16 07/12/2018 RIKY E Primary Osito Conrad [id number] Insurance:ANTHEMPolic TaylorDOB: [facility] y Number: [id number], [place] [id number] Repository [address]Tuw: ([phone]) Date:7365-83-38MN [phone] () [id number] [place] [address]WN: 07/12/2018 Secondary RIKY E [place] Insurance:MEDICARE TAYLORDOB: Community PART A [facility] [id number] Hospital Number: Repository [id number] Date:2018 07/12/2018 Tertiary NOT GIVENUNK [place] Insurance:SELF PAY [facility] Number: Effective Repository Date:2018-07-04 04/27/2018 RIKY E Primary OSITO [place] [id number] Insurance:ANTHEMPolic [facility] y Number: [place], [place] [id number] Repository [address]Vaq: ([phone]) Date:4513-48-52FH [phone] () [address]87948AILJIPT, [place] [address]CA: 04/27/2018 Secondary RIKY E [place] Insurance:MEDICARE TAYLORDOB: Community PART A [facility] [id number] Hospital Number: Repository [id number] Date:2018-04-22 04/27/2018 Tertiary NOT GIVENUNK [place] Insurance:SELF PAY [facility] INSURANCEPolicy Hospital Number: Effective Repository Date:2018-04-22 04/27/2018 RIKY E Primary Osito Conrad [id number] Insurance:ANTHEMPolic TaylorDOB: [facility] y Number: [id number], [place] [id number] Repository [address]Puc: ([phone]) Date:4268-51-97RN [phone] () 905659TJIFVDA, [place] [address]FR: 04/27/2018 Secondary RIKY E [place] Insurance:MEDICARE TAYLORDOB: Community PART A [facility] [id number] Hospital Number: Repository [id number] Date:2017-10-19 04/27/2018 Tertiary NOT GIVENUNK [place] Insurance:SELF PAY [facility] Number: Effective Repository Date:2018-04-21 04/22/2018 RIKY E Primary Osito Conrad [id number] Insurance:ANTHEMPolic TaylorDOB: [facility] y Number: [id number], [place] [id number] Repository [address]Lii: ([phone]) Date:1556-79-58QE [phone] () 706778EHARLJU, [place] [address]OZ: 04/22/2018 Secondary RIKY E [place] Insurance:MEDICARE TAYLORDOB: Community PART A [facility] [id number] Hospital Number: Repository [id number] Date:2017-10-19 04/22/2018 Tertiary NOT GIVENUNK [place] Insurance:SELF PAY [facility] Hospital Number: Effective Repository Date:2018-04-21 04/21/2018 RIKY E Primary Osito R [place] [id number] Insurance:ANTHEMPolic TaylorDOB: [facility] y Number: [id number], [place] [id number] Repository [address]Rrc: ([phone]) Date:4211-71-05TR [phone] () 745140YUBNFBL, [place] [address]TV: 04/21/2018 Secondary RIKY E [place] Insurance:MEDICARE TAYLORDOB: Community PART A [facility] [id number] Hospital Number: Repository [id number] Date:2018-04-21 04/21/2018 Tertiary NOT GIVENUNK [place] Insurance:SELF PAY [facility] Hospital Number: Effective Repository Date:2018-04-21 02/17/2018 IRKY E Primary Osito R [place] [id number] Insurance:ANTHEMPolic TaylorDOB: [facility] y Number: [id number], [place] [id number] Repository [address]Oti: ([phone]) Date:2023-52-32IG [phone] () [id number] [place] [address]PZ: 02/17/2018 Secondary RIKY E [place] Insurance:MEDICARE TAYLORDOB: Community PART A [facility] [id number] Hospital Number: Repository [id number] Date:2018 02/17/2018 Tertiary NOT GIVENUNK [place] Insurance:SELF PAY [facility] Hospital Number: Effective Repository Date:2018 02/17/2018 RIKY E Primary Osito R [place] [id number] Insurance:ANTHEMPolic TaylorDOB: [facility] y Number: [id number], [place] [id number] Repository [address]Kuq: ([phone]) Date:5517-82-68WD [phone] () [address]SRL[address] [place] [address] 220[address]BU: 02/17/2018 Secondary RIKY E [place] Insurance:MEDICARE TAYLORDOB: Community PART A [facility] [id number] Hospital Number: Repository [id number] Date:2018 02/17/2018 Tertiary NOT GIVENUNK [place] Insurance:SELF PAY [facility] Hospital Number: Effective Repository Date:2018-02-17 2018 Osito R Primary Osito R [place] [id number] Insurance:ANTHEMPolic TaylorDOB: [facility] y Number: [id number], [place] [id number] Repository [address]Fdm: ([phone]) Date:3156-08-06ZT [phone] () [address] [place] [address]NW: 2018 Secondary RIKY E [place] Insurance:MEDICARE TAYLORDOB: Community PART A [facility] [id number] Hospital Number: Repository [id number] Date:2017-08-30 2018 Tertiary NOT GIVENUNK [place] Insurance:SELF PAY [facility] Number: Effective Repository Date:2018-01-04 12/21/2017 RIKY E Primary Osito R [place] [id number] Insurance:ANTHEMPolic TaylorDOB: [facility] y Number: [id number], [place] [id number] Repository [address]Zkh: ([phone]) Date:0476-90-26TO [phone] () [id number] [place] [address]16[address]QX: 12/21/2017 Secondary RIKY E [place] Insurance:MEDICARE TAYLORDOB: Community PART A [facility] [id number] Hospital Number: Repository [id number] Date:2013-06-20 12/21/2017 Tertiary NOT GIVENUNK [place] Insurance:SELF PAY [facility] Hospital Number: Effective Repository Date:2017-07-15 12/21/2017 RIKY E Primary Osito R [place] [id number] Insurance:ANTHEMPolic TaylorDOB: [facility] y Number: [id number] [place] [id number] Repository 36[address]Nov: (419) Date:8525-39-26SZ [phone] () [id number] [place] [address] 818[address]WT: 12/21/2017 Secondary RIKY E [place] Insurance:MEDICARE TAYLORDOB: Community PART A [facility] [id number] Hospital Number: Repository [id number] Date:2013-06-20 12/21/2017 Tertiary NOT GIVENUNK [place] Insurance:SELF PAY [facility] Hospital Number: Effective Repository Date:2017-12-21 11/08/2017 RIKY E Primary RIKY E [facility] TAYLORDOB: Insurance:MEDICARE A TAYLORDOB: Health System AND BPolicy Number: [id number] Repository [facility] [id number] [place] Date: [address]Wly: () 11/08/2017 Secondary OSITO TAYLORDOB: [facility] Insurance:BLUE CARD [id number] PPOPolicy Number: Repository [id number] Date: 10/19/2017 RIKY E Primary Osito R [place] [id number] Insurance:ANTHEMPolic TaylorDOB: [facility] y Number: [id number] [place] [id number] Repository [address]Pdg: 419) Date:5722-26-45US [phone] () [address] [place] [address] 47[address]QT: 10/19/2017 Secondary RIKY E [place] Insurance:MEDICARE TAYLORDOB: Community PART A [facility] [id number] Hospital Number: Repository [id number] Date:2017-08-22 10/19/2017 Tertiary NOT GIVENUNK [place] Insurance:SELF PAY [facility] Number: Effective Repository Date:2017-08-22 10/18/2017 Osito R Primary Osito R [place] [id number] Insurance:ANTHEMPolic TaylorDOB: [facility] y Number: [id number] [place], [place] [id number] Repository [address]Bsv: (419) Date:2130-79-60RJ [phone] () [address] [place] [address] 07[address]ZI: 10/18/2017 Secondary RIKY E [place] Insurance:MEDICARE TAYLORDOB: [facility] [id number] Hospital Number: Repository [id number] Date:2017-10-18 10/18/2017 Tertiary NOT GIVENUNK [place] Insurance:SELF PAY [facility] Hospital Number: Effective Repository Date:2017-10-18 10/07/2017 Osito R Primary Osito R [place] [id number] Insurance:ANTHEMPolic TaylorDOB: [facility] y Number: [id number], [place] [id number] Repository [address]Czc: ([phone]) Date:0178-32-07MY [phone] () [address] [place] [address] 322[address]NV: 10/07/2017 Secondary RIKY E [place] Insurance:MEDICARE TAYLORDOB: Community PART A [facility] [id number] Hospital Number: Repository [id number] Date:2013-06-20 10/07/2017 Tertiary NOT GIVENUNK [place] Insurance:SELF PAY [facility] Number: Effective Repository Date:2017-05-27 10/07/2017 Osito R Primary Osito R [place] [id number] Insurance:ANTHEMPolic TaylorDOB: [facility] y Number: [id number], [place] [id number] Repository [address]Tzr: ([phone]) Date:4131-01-10GF [phone] () [address] [place] [address] 760[address]KI: 10/07/2017 Secondary RIKY E [place] Insurance:MEDICARE TAYLORDOB: Community PART A [facility] [id number] Hospital Number: Repository [id number] Date:2013-06-20 10/07/2017 Tertiary NOT GIVENUNK [place] Insurance:SELF PAY [facility] Number: Effective Repository Date:2017-10-07 SOCIAL HISTORY SOCIAL HISTORY No Social History Records FoundFAMILY HISTORY FAMILY HISTORY No Family History Records FoundADVANCE DIRECTIVES ADVANCE DIRECTIVES No Advanced Directives Records FoundINFORMATION SOURCE INFORMATION SOURCE DATE CREATED AUTHOR AUTHOR'S ORGANIZATION 09/06/2018 VASQUEZ
== END ==
PROVIDERS: Family Provider Internal Medicine; PCP Internal Medicine; Referring Provider Internal Medicine; Visit Provider Internal Medicine
DX: M54.5 Low back pain (principal); M25.512 Pain in left shoulder; M25.511 Pain in right shoulder; M25.542 Pain in joints of left hand; M25.541 Pain in joints of right hand; M25.551 Pain in right hip; M25.552 Pain in left hip; E55.9 Vitamin D deficiency, unspecified; E78.5 Hyperlipidemia, unspecified; I10 Essential (primary) hypertension
CPT/HCPCS: 36415; 72110; 73030; 73130; 73521; 80048; 80061; 81001; 82043; 82306; 82570; 83704; 84443; 85025

== ENCOUNTER → 2018-10-26 09:58 | Outpatient (CLI) | payer BC, MEDICARE, SELFPAY ==
[2018-07-12 09:11] VITALS: BMI 34.8
--- NOTE | 2018-10-26 10:03 | ECHOD_ITS ---
Reason For Study: VALVE REPLACEMENT EVAL Procedure This was a 2D Doppler, Color Flow transthoracic echocardiogram. Exam performed in department. Left Ventricle Normal size and thickness. The estimated ejection fraction is 65 %. Normal diastology for age. No regional wall motion abnormalities noted. Right Ventricle Normal size and thickness. Normal systolic function. Atria Normal left atrium. Normal right atrium. Normal atrial septum. Mitral Valve The mitral valve is structurally normal. No prolapse or stenosis seen. Trivial mitral valve insufficiency. Tricuspid Valve Normal tricuspid valve. Trivial tricuspid valve insufficiency. Right ventricular systolic pressure estimated to be 31 mmHg. Aortic Valve Bicuspid aortic valve. 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 Moderate focal aortic valve thickening. Mild to moderate aortic stenosis. Peak aortic valve gradient 34 mmHg. Mean aortic valve gradient 20 mmHg. Trivial aortic valve insufficiency. Pulmonic Valve Normal pulmonic valve. Trivial pulmonic valve insufficiency. Great Vessels Normal aortic root. Normal arch. Normal inferior vena cava. Inferior vena cava collapse with sniff. Pericardium/Pleural No pericardial effusion. MMode/2D Measurements & Calculations LVIDd: 3.9 cm IVSd: 0.96 cm LVOT diam: 2.0 cm LVIDs: 2.5 cm LVPWd: 0.97 cm LVOT area: 3.1 cm2 RVDd: 3.2 cm FS: 34.7 % Ao root diam: 3.9 cm LAV(MOD-bp): 49.9 ml LVAd ap4: 26.8 cm2 LAV(MOD-bp) Indexed: 25.3 ml/m2 EDV(MOD-sp4): 77.4 ml LAV(MOD-sp2): 57.3 ml EDV(sp4-el): 84.4 ml LAV(MOD-sp4): 30.2 ml LVAs ap4: 15.8 cm2 ESV(MOD-sp4): 35.0 ml ESV(sp4-el): 35.1 ml EF(MOD-sp4): 54.8 % EF(sp4-el): 58.4 % SV(MOD-sp4): 42.4 ml SV(sp4-el): 49.3 ml Aortic Valve Planimetry: 1.5 cm2 LA A4 area: 12.2 cm2 LA dimension(2D): 3.5 cm RA A4 area: 11.3 cm2 Time Measurements MV dec time: 0.19 sec Doppler Measurements & Calculations MV E max darius: 79.9 cm/sec Lat Peak E' Darius: 16.2 cm/sec Med Peak E' Darius: 7.1 cm/sec MV A max darius: 57.0 cm/sec E/E' lat: 4.9 E/E' med: 11.2 MV E/A: 1.4 Ao V2 max: 235.2 cm/sec AI max darius: 268.4 cm/sec LV V1 max: 105.5 cm/sec Ao max P.9 mmHg AI max P.8 mmHg LV V1 max P.5 mmHg Ao V2 mean: 168.5 cm/sec LV V1 mean P.5 mmHg Ao mean P.2 mmHg AI dec slope: 127.8 cm/sec2 LV V1 mean: 74.8 cm/sec Ao V2 VTI: 49.0 cm AI P1/2t: 615.0 msec LV V1 VTI: 24.9 cm CELESTE(I,D): 1.6 cm2 CELESTE(V,D): 1.4 cm2 SV(LVOT): 76.7 ml PA V2 max: 94.1 cm/sec TR max darius: 261.3 cm/sec TR max P.3 mmHg Interpretation Summary The estimated ejection fraction is 65 %. Normal diastology for age. Right ventricular systolic pressure estimated to be 31 mmHg. Bicuspid aortic valve. 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 Mild to moderate aortic stenosis. Compared to echo report dated 10/07/2017, no appreciable changes noted. Ordering Physician: Stanley Richey Referring Physician: ISH MARTE Performed By: Yazmin Delgado RDCS
== END ==
PROVIDERS: Family Provider Internal Medicine; PCP Internal Medicine; Referring Provider Internal Medicine Cardiovascular Disease; Visit Provider Internal Medicine Cardiovascular Disease
DX: I27.21 Secondary pulmonary arterial hypertension (principal); Q23.1 Congenital insufficiency of aortic valve
CPT/HCPCS: 93306

== ENCOUNTER → 2018-12-14 08:50 | Outpatient (CLI) | payer BC, MEDICARE, SELFPAY ==
[2018-10-27 13:46] VITALS: BMI 35.3
[2018-12-14 11:30] VITALS: PULSE 71; PULSE 75; PULSE 76; PULSE 79; PULSE 80; PULSE 90; PULSE 94; PULSE 96; O2SAT 92; O2SAT 93; O2SAT 94
--- NOTE | 2018-12-14 12:52 | PCM.PSN.6M ---
PSN 6 Minute Walk Test - 6 Minute Walk Test 6 Minute Walk Test: 6 Minute Walk Test PSN:6-Minute Walk Test Start: 12/14/18 11:30 Freq: Status: Active Protocol: RESP.6MINW Document 12/14/18 11:30 SMB (Rec: 12/14/18 11:33 SMB [id number]) 6 Minute Walk Test Date Performed 12/14/18 Time Performed 08:59 Height 5 ft 4 in Weight: 213 lb Weight in Pounds 213.[address]: Michael Segal Assistive device used: None Pre-test Oxygen Delivery Method Room Air Pulse Ox (%) 93 Pulse Rate (60-100 beats/min) 96 Dyspnea Leigha Scale (0-10) 0.5 Exertion Leigha Scale (6-20) 11 1st minute Oxygen Delivery Method Room Air Pulse Ox (%) 92 Pulse Rate (60-100 beats/min) 94 2nd minute Oxygen Delivery Method Room Air Pulse Ox (%) 92 Pulse Rate (60-100 beats/min) 80 3rd minute Oxygen Delivery Method Room Air Pulse Ox (%) 93 Pulse Rate (60-100 beats/min) 79 4th minute Oxygen Delivery Method Room Air Pulse Ox (%) 94 Pulse Rate (60-100 beats/min) 76 5th minute Oxygen Delivery Method Room Air Pulse Ox (%) 93 Pulse Rate (60-100 beats/min) 75 6th minute Oxygen Delivery Method Room Air Pulse Ox (%) 92 Pulse Rate (60-100 beats/min) 90 Post-test Oxygen Delivery Method Room Air Pulse Ox (%) 94 Pulse Rate (60-100 beats/min) 71 Dyspnea Leigha Scale (0-10) 2 Exertion Leigha Scale (6-20) 12 Full Laps Walked 14 Partial Lap, Number of Tiles Walked 5 Total Distance Walked (ft) 831 - Interpretation Interpretation: The patient ambulated 831 feet over the course of 6 minutes beginning on room air without assistive devices or breaks. Pretesting oxygen saturation was noted to be 93% on room air. With ambulation, the maggie oxygen saturation was 92%. There was no significant exertional oxygen desaturation. - Recommendations Recommendations: There is no indication for the use of supplemental oxygen at this time.
== END ==
PROVIDERS: Family Provider Internal Medicine; PCP Internal Medicine; Referring Provider Internal Medicine Critical Care Medicine; Visit Provider Internal Medicine Critical Care Medicine
DX: I27.21 Secondary pulmonary arterial hypertension (principal); G47.33 Obstructive sleep apnea (adult) (pediatric)
CPT/HCPCS: 94618

== ENCOUNTER 2019-04-02 08:54 | Emergency (ER) | payer BC, MEDICARE, SELFPAY ==
[2018-12-19 08:41] VITALS: BMI 37.4
[2019-04-02 08:55] VITALS: BP 122/63; PULSE 66; RESP 18; TEMP 36.6; O2SAT 96; BMI 36.0
--- NOTE | 2019-04-02 09:12 | RAD_ITS ---
STUDY: X-RAY - UNILATERAL RIBS ( LEFT ) WITH CHEST REASON FOR EXAM: Female, 64 years old. Status post fall one week ago TECHNIQUE - RIBS: 4 view(s) of the ribs. TECHNIQUE - CHEST: Single PA view of the chest. COMPARISON: 09/17/2016 chest x-ray, August 16, 2018 shoulder x-ray FINDINGS - RIBS: Normal visualized ribs without a demonstrated fracture. FINDINGS - CHEST: There is elevation of the right hemidiaphragm. There is no demonstrated pleural abnormality. There is mild cardiac enlargement. Normal mediastinum and latoya. Normal visualized pulmonary arteries. There is atherosclerotic calcification of the aortic arch with tortuosity. There are diffuse degenerative changes of the visualized thoracic spine. Normal visualized ribs, clavicles, and shoulders. There is no demonstrated abnormality of the visualized soft tissue structures of the upper abdomen. RAD/Ribs Uni Min 3V w/PA Chest IMPRESSION: RIBS: Normal x-ray examination of the ribs. CHEST: Degenerative changes, as described above. No demonstrated acute cardiopulmonary process. Electronically Signed: Irene Smith MD at 10:57 EDT Tel , Service support ,
--- NOTE | 2019-04-02 09:13 | ED.VIS.GEN ---
History of Present Illness Informant: Patient, Significant Other Onset: Weeks - 1 week ago Context: Sudden Onset Timing: Continuous Quality: Sharp Location: Left ribs Current Severity: Severe Maximum Severity: Severe Worsened by: Movements, coughing, breathing Relieved by: nothing Associated Symptoms: Denies Narrative: 64-year-old female with a history of chronic atrial fibrillation anticoagulated with Eliquis presents to the emergency department with left rib pain. 1 week ago the patient slipped at home and fell onto her granddaughter's toys on her left side. She had no prodromal symptoms. She did not hit her head or lose consciousness. She landed on her left side ribs and has had continued pain since that time. She has not been short of breath or had chest pain. No fevers chills or hemoptysis. She denies any other injuries. She has no vomiting or diarrhea. She denies any symptoms of bleeding. Prior similar symptoms: No Recent Illness/Hospitalization: No <Vinh Duarte - Last Filed: 04/02/19 11:04> <Marium Villalobos - Last Filed: 04/02/19 14:20> Chief Complaint: Fall Past Medical History Prior records reviewed: Yes Past Medical History: - - Atrial fibrillation Surgical History: - - MAZE procedure Lives: Spouse/ Significant Other Smoking Status: Former smoker <Vinh Duarte - Last Filed: 04/02/19 11:04> <Marium Villalobos - Last Filed: 04/02/19 14:20> - Allergies and Home Meds Allergies/Adverse Reactions: Allergies No Known Allergies Allergy (Verified 04/02/19 08:58) Primary Care Physician: Lydia Copeland DO [Primary Care Provider] - Review of Systems General: Denies: Chills, Fever Cardiovascular: Denies: Chest pain Respiratory: Reports: - - Left sided rib pain. Denies: Dyspnea, Cough, Sputum, Dyspnea on exertion Gastrointestinal: Denies: Abdominal pain, Nausea, Vomiting <Vinh Duarte - Last Filed: 04/02/19 11:04> Physical Exam Vital Signs/Narrative: Vital Signs Temp Pulse Resp BP Pulse Ox 04/02/19 08:55 97.9 F 66 18 122/63 H 96 General: Well nourished, Well developed, No Acute Distress Head: Normocephalic, Atraumatic Eyes: Perrl, EOMI ENT: Moist mucous membranes, - - No trauma Neck: Supple, Nontender - Normal range of motion Cardiovascular: Irregular, Murmur Respiratory: No distress, CTA bilaterally, Chest tenderness - Bruising left lateral and posterior ribs with tenderness on palpation. No crepitus. No step-off deformities are noted. Abdomen: Soft, Nontender, Nondistended, Normal bowel sounds, No masses Back: Nontender, Normal Inspection Extremities: Nontender, No edema Skin: No rash, Trauma Neurological: Alert, Oriented x3 <Vinh Duarte - Last Filed: 04/02/19 11:04> Vital Signs/Narrative: Vital Signs Temp Pulse Resp BP Pulse Ox 04/02/19 08:55 97.9 F 66 18 122/63 H 96 <Marium Villalobos - Last Filed: 04/02/19 14:20> Diagnostic/Tx/Re-eval - Medical Decision Making Patient's x-ray with left-sided rib series shows no acute findings. Patient reassured. She will be given a short course of [place] as she is anticoagulated and is unable to take anti-inflammatories and has not had relief with Tylenol. Patient has no bruising of her abdomen her abdomen is soft and nontender she is able to tolerate by mouth she has been urinating normally and at this time do not feel further work-up is indicated. She was advised to follow-up with her primary care physician this week or return to the emergency department for worsening symptoms which we discussed. <Vinh Duarte - Last Filed: 04/02/19 11:04> - Medical Decision Making Patient was seen with the physician assistant in nursing agree with the history and physical and the plan patient fell about a week ago on Eliquis has some nonspecific chest pain no head neck chest or abdominal pain no other complaints Head neck chest unremarkable that there is some vague left-sided chest discomfort no crepitance lungs are clear the abdomen soft neurologically normal x-rays see the rest of the plan dictated in the note <Marium Villalobos - Last Filed: 04/02/19 14:20> ED Disposition <Vinh Duarte - Last Filed: 04/02/19 11:04> <Marium Villalobos - Last Filed: 04/02/19 14:20> - Plan for ED Patient: Disposition: Home or Assisted Living Diagnosis: Contusion of rib on left side Instructions: Rib Contusion Prescriptions: Hydrocodone Bitart/Apap 5-325 [[place] 5MG-325MG] 1 tab PO Q6H PRN PRN 3 Days #12 tab PRN Reason: Pain Prescription Printed Referrals: Lydia Copeland DO [Primary Care Provider] -
[2019-04-02] MEDS: HYDROcodone Bitartrate/Apap 5/325 Tablet PO (09:49)
== END 2019-04-02 11:15 | disposition home or self-care (01) ==
PROVIDERS: Emergency Provider Physician Assistant Medical; Family Provider Internal Medicine; PCP Internal Medicine
DX: S20.212A Contusion of left front wall of thorax, initial encounter (principal); R01.1 Cardiac murmur, unspecified; W01.0XXA Fall on same level from slipping, tripping and stumbling without subsequent striking against object, initial encounter; Y93.9 Activity, unspecified; Y92.009 Unspecified place in unspecified non-institutional (private) residence as the place of occurrence of the external cause; I48.2 Chronic atrial fibrillation; Z79.01 Long term (current) use of anticoagulants; Z87.891 Personal history of nicotine dependence
CPT/HCPCS: 71101; 99283

== ENCOUNTER → 2020-02-02 07:13 | Outpatient (CLI) | payer MEDICARE, SELFPAY ==
[2020-01-26 10:50] VITALS: BMI 35.9
[2020-02-02 09:35] LABS: AST(SGOT) 13 U/L (15-37); Alanine Aminotransfer ALT/SGPT 12 U/L (13-56); Albumin, Serum 3.9 g/dL (3.2-5.0); Alkaline Phosphatase 101 U/L (45-117); Bilirubin, Direct 0.15 mg/dL (0.00-0.30); Cholesterol 195 mg/dL (200); Globulin 3.4 g/dL (2.2-4.2); High Density Lipoprotein 70 mg/dL; Protein, Total 7.3 g/dL (6.4-8.2); Triglycerides 79 mg/dL; Very Low Density Lipoprotein 16 mg/dL (5-40)
== END ==
PROVIDERS: PCP Internal Medicine; Referring Provider Internal Medicine Cardiovascular Disease; Visit Provider Internal Medicine Cardiovascular Disease
DX: E78.5 Hyperlipidemia, unspecified (principal)
CPT/HCPCS: 36415; 80061; 80076

== ENCOUNTER → 2020-02-15 09:53 | Outpatient (CLI) | payer MEDICARE, SELFPAY ==
[2020-01-26 10:50] VITALS: BMI 35.9
--- NOTE | 2020-02-15 09:55 | ECHOCS_ITS ---
Reason For Study: BICUSPID AV Procedure This was a 2D Doppler, Color Flow transthoracic echocardiogram. The study was technically difficult. Contrast injection was performed. Exam performed in department. Left Ventricle Normal size and thickness. The estimated ejection fraction is 65 %. Stage 1 diastolic dysfunction. No regional wall motion abnormalities noted. Right Ventricle Mildly dilated right ventricle. Normal systolic function. Atria Normal left atrium. Normal right atrium. Normal atrial septum. Mitral Valve Mild diffuse mitral valve thickening. Tricuspid Valve Normal tricuspid valve. Mild (1+) tricuspid valve insufficiency. Right ventricular systolic pressure estimated to be 42 mmHg. Mild pulmonary hypertension. Aortic Valve There is fusion between the right and left coronary cusps, making this a functionally bicuspid aortic valve. Bicuspid aortic valve. Peak aortic valve gradient 28 mmHg. Mean aortic valve gradient 17 mmHg. Calculated aortic valve area (continuity equation) is 1.5 cm2. Moderate aortic stenosis. Pulmonic Valve Normal pulmonic valve. Great Vessels Normal aortic root. Normal arch. Normal inferior vena cava. Inferior vena cava collapse with sniff. Pericardium/Pleural No pericardial effusion. Medication 20 gauge I.V. with prn adaptor inserted into right arm. Diluted definity 1.5ml given slow IV push to enhance endocardial definition. MMode/2D Measurements & Calculations LVIDd: 4.7 cm IVSd: 0.92 cm LVOT diam: 2.2 cm LVIDs: 3.0 cm LVPWd: 0.94 cm RVDd: 3.7 cm FS: 35.4 % LVOT area: 3.9 cm2 Ao root diam: 4.3 cm LAV(MOD-bp): 61.1 ml LA A4 area: 17.8 cm2 LAV(MOD-bp) Indexed: 30.0 ml/m2 LAV(MOD-sp2): 63.5 ml LAV(MOD-sp4): 52.0 ml LA dimension(2D): 4.3 cm RA A4 area: 11.6 cm2 Time Measurements MV dec time: 0.17 sec Doppler Measurements & Calculations MV E max darius: 95.9 cm/sec Lat Peak E' Darius: 11.9 cm/sec Med Peak E' Darius: 5.6 cm/sec MV A max darius: 52.9 cm/sec E/E' lat: 8.1 E/E' med: 17.3 MV E/A: 1.8 Ao V2 max: 266.0 cm/sec LV V1 max: 97.1 cm/sec SV(LVOT): 98.4 ml Ao max P.3 mmHg LV V1 max P.8 mmHg Ao V2 mean: 196.9 cm/sec LV V1 mean P.5 mmHg Ao mean P.9 mmHg LV V1 mean: 77.7 cm/sec Ao V2 VTI: 64.4 cm LV V1 VTI: 25.0 cm CELESTE(I,D): 1.5 cm2 CELESTE(V,D): 1.4 cm2 PA V2 max: 86.5 cm/sec PI end-d darius: 146.8 cm/sec TR max darius: 304.1 cm/sec TR max P.1 mmHg Interpretation Summary The estimated ejection fraction is 65 %. Stage 1 diastolic dysfunction. Mild (1+) tricuspid valve insufficiency. Right ventricular systolic pressure estimated to be 42 mmHg. Mild pulmonary hypertension. There is fusion between the right and left coronary cusps, making this a functionally bicuspid aortic valve. Peak aortic valve gradient 28 mmHg. Mean aortic valve gradient 17 mmHg. Calculated aortic valve area (continuity equation) is 1.5 cm2. Moderate aortic stenosis. Bicuspid aortic valve. Compared to echo report dated 10/26/2018, LV function has remained the same, RVSP has increased from 31 to 42 mmHg. Aortic valve gradient has remained about the same. Ordering Physician: Stanley Richey Referring Physician: ISH MARTE Performed By: Roselia Toledo, YESSY, RVT
== END ==
PROVIDERS: PCP Internal Medicine; Referring Provider Internal Medicine Cardiovascular Disease; Visit Provider Internal Medicine Cardiovascular Disease
DX: I48.0 Paroxysmal atrial fibrillation (principal); Z79.899 Other long term (current) drug therapy
CPT/HCPCS: 93306; Q9957; A4216; C8929

== ENCOUNTER 2020-04-29 19:01 | Emergency (ER) | payer MEDICARE, SELFPAY ==
[2020-01-26 10:50] VITALS: BMI 35.9
[2020-04-29 19:02] VITALS: BP 143/102; PULSE 80; RESP 16; TEMP 36.9; O2SAT 94; BMI 39.2
[2020-04-29 19:25] LABS: Mucous, Urine 0 SEEN /hpf (<or=2+)
[2020-04-29 19:36] LABS: Glucose, Dipstick Normal (Normal); Ketone-Dipstick 5 mg/dl (Negative); Leukocyte Esterase-Dipstick 25 /ul (Negative); Nitrite-Dipstick Positive (Negative); Occult Blood-Urine 250 /ul (Negative); Protein-Dipstick 100 mg/dl (Negative); Urine Bilirubin Dipstick Negative (Negative); Urine Clarity Sl. Cloudy (Clear); Urine Urobilinogen Normal (Normal)
[2020-04-29 19:37] LABS: Color, Urine Amber (Yellow)
[2020-04-29 19:48] LABS: Red Blood Cells-Urine > 100 SEEN /hpf (0-5)
[2020-04-29 19:49] LABS: Bacteria RARE /hpf (None Seen); Squamous Epithelial Cells - UA 0-5 SEEN /hpf (5-10); White Blood Cells 0-5 SEEN /hpf (0-5)
[2020-04-29 20:56] VITALS: BP 93/63; PULSE 76; RESP 18; O2SAT 95
[2020-04-29 22:02] LABS: Absolute Lymphocyte Count 2.04 X10^3/uL (0.83-4.51); Absolute Neutrophil Count 9.2 X10^3/uL (2.0-7.7); Basophil# 0.04 X10^3/uL; Basophil% 0.3 % (0-1); Eosinophil# 0.13 X10^3/uL; Eosinophils% 1.1 % (0-5); Hematocrit 39.1 % (37-47); Hemoglobin 12.7 g/dL (12.0-15.0); Lymphocyte # 2.04 X10^3/ul (4.0); Lymphocyte % 16.7 % (19-41); Mean Corp Hgb Conc 32.5 g/dL (32-36); Mean Corpuscular Hgb 29.5 pg (27.0-32.0); Mean Corpuscular Volume 90.7 fL (81-99); Mean Platelet Vol. 9.1 fl (6.2-12.0); Monocyte# 0.78 X10^3/uL; Monocyte% 6.4 % (0-10); NRBC Flagged by Analyzer 0 % (0-5); Neutrophil # 9.16 X10^3/uL (2.7-7.7); Platelet Count 219 K/mm3 (150-450); RBC Distribution Width CV 12.9 % (11.6-14.6); Red Blood Count 4.31 M/mm3 (4.2-5.4); White Blood Count 12.2 K/mm3 (4.4-11.0)
[2020-04-29 22:07] VITALS: RESP 16
[2020-04-29 22:09] LABS: International Normalized Ratio 1.4; Prothrombin Time (Protime)PT. 16.4 SECONDS (11.7-14.9)
[2020-04-29 22:10] LABS: Partial Thromboplast Time 32.9 Seconds (24.1-36.2)
[2020-04-29 22:14] LABS: Anion Gap 6 (5-15); BUN 27 mg/dL (7-18); BUN/Creat Ratio 29.9 RATIO (10-20); Calcium,Total 9.5 mg/dL (8.5-10.1); Chloride 107 mmol/L (98-107); EST Glomerular Filtration Rate 67 mL/min (>60); Est Glom Filt Rate - Afr Amer 80 mL/min (>60); Estimated Creatinine Clearance 53.81 ml/min; Glucose 98 mg/dL (74-106); Potassium 3.6 mmol/L (3.5-5.1); Sodium Level 143 mmol/L (136-145)
--- NOTE | 2020-04-29 23:26 | ED.DCSUM_ITS ---
- ER Visit Summary Date of Service: 04/29/20 Chief Complaint: Hematuria History of Present Illness: The patient is a 65 F who presents with hematuria that is been getting worse over the past 4 days. Patient states she is currently being treated for urinary tract infection. Patient is on Levaquin. Patient states her urine is dark red. Patient admits to some pain in her flanks bilaterally. Patient states it is aching. Patient states it is worse with prolonged sitting. Patient denies any fevers or chills. Patient denies any nausea or vomiting. Patient does admit to some dysuria but states it is improving. Physical Examination: Vital signs are stable. Patient is afebrile. Patient is in no acute distress. Oral mucosa is pink and moist. Neck is supple. Trachea is midline. There is no JVD. Heart was irregularly irregular. Lungs are clear and equal bilaterally. Abdomen is soft. Bowel sounds are normal. There is bilateral CVA tenderness. There is no rebound or guarding noted. Cranial nerves II through XII are intact. There are no focal motor or sensory deficits noted. Extremities are intact. There is no calf tenderness or edema. Test Results: CBC shows a mild leukocytosis of 12.2. Hemoglobin and hematocrit are normal. PT with INR and PTT were normal. Urinalysis shows leukocyte esterase of 25 with positive nitrates. Occult blood was 250. There were 0-5 white blood cells and greater than 100 red blood cells. A urine culture was sent. Emergency Department Course and Treatment: Patient was feeling better on reevaluation. Patient was advised to continue her Levaquin as prescribed until gone. Patient was instructed to drink plenty of fluids. Patient was instructed to follow-up with her primary care physician in 5 to 7 days. Patient understood and was agreeable with the plan. All questions were answered. Disposition: Discharge home Impression: Hemorrhagic cystitis This note was generated with [employer] dictation software. It may contain incorrect words, spelling, and punctuation that were not noted in review of the chart prior to signing ED Disposition - Plan for ED Patient: Disposition: Home or Assisted Living Diagnosis: Hemorrhagic cystitis Instructions: ED Pyelonephritis Female Adult Referrals: Lydia Copeland DO [Primary Care Provider] - 5-7 Days Additional Instructions: Continue your Levaquin prescription until it is gone.
[2020-04-29 23:31] VITALS: BP 132/80; PULSE 72; RESP 16; O2SAT 98
== END 2020-04-29 23:35 | disposition home or self-care (01) ==
PROVIDERS: Emergency Provider Emergency Medicine; PCP Internal Medicine
DX: N30.91 Cystitis, unspecified with hematuria (principal); E66.9 Obesity, unspecified
CPT/HCPCS: 80048; 81001; 85025; 85610; 85730; 87077; 87086; 87088; 99282; A4216

== ENCOUNTER → 2020-05-16 09:49 | Outpatient (CLI) | payer MEDICARE, SELFPAY ==
[2020-04-29 19:02] VITALS: BMI 39.2
--- NOTE | 2020-05-16 09:54 | RAD_ITS ---
STUDY: X-RAY - RIGHT SHOULDER REASON FOR EXAM: Female, 65 years old. CHRONIC PAIN TECHNIQUE: 4 view(s) of the shoulder. COMPARISON: Prior study of 08/16/2018 FINDINGS: There is moderate degenerative arthrosis of the glenohumeral articulation. Normal acromioclavicular joint. Normal acromion. Normal humeral head and visualized proximal humerus. The soft tissue structures are unremarkable. Normal visualized pulmonary apex. 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 Electronically Signed: Jake Varela MD at 22:42 EDT , Service support ,
--- NOTE | 2020-05-16 09:54 | RAD_ITS ---
STUDY: X-RAY - LEFT SHOULDER REASON FOR EXAM: Female, 65 years old. CHRONIC PAIN TECHNIQUE: 5 view(s) of the shoulder. COMPARISON: None. FINDINGS: There is moderate degenerative arthrosis of the glenohumeral articulation. Normal acromioclavicular joint. Normal acromion. Normal humeral head and visualized proximal humerus. The soft tissue structures are unremarkable. Normal visualized pulmonary apex. 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 Electronically Signed: Jake Varela MD at 22:41 EDT , Service support ,
== END ==
PROVIDERS: PCP Internal Medicine; Referring Provider Internal Medicine; Visit Provider Internal Medicine
DX: M25.511 Pain in right shoulder (principal); M25.512 Pain in left shoulder
CPT/HCPCS: 73030

== ENCOUNTER → 2020-07-01 07:04 | Outpatient (CLI) | payer MEDICARE, SELFPAY ==
--- NOTE | 2020-07-01 11:12 | PFTCOMP ---
COMPLETE PULMONARY FUNCTION TEST INTERPRETATION Brief HPI: Patient is a 65 year old female, currently under the care of myself, who presents to [facility] for complete pulmonary function tests secondary to diagnosis of dyspnea. Respiratory therapist reports good effort and reproducible results. Interpretation: Forced expiration spirometry shows no large airways obstructive ventilatory defect with an FEV1 of 62% predicted. There is no significant bronchodilator response by strict ATS criteria. Spirograms are of good quality and plateau normally. The respiratory flow volume loop shows a normal pattern. Lung volumes by body plethysmography show a decreased total lung capacity at 3.64 L, 75% predicted. All other lung volumes are within normal limits. Diffusion capacity by carbon monoxide is decreased at 49% predicted. The airway resistance is normal. Compared to previous pulmonary function tests from 12/21/2017, there is been a significant reduction in FVC and FEV1 by 22% and 18% respectively. Impression: Mild restrictive ventilatory defect with reduction in diffusion capacity that is out of proportion. Patient has had a decrease in spirometry compared to previous.
== END ==
PROVIDERS: PCP Internal Medicine; Referring Provider Nurse Practitioner Acute Care; Visit Provider Nurse Practitioner Acute Care
DX: R06.00 Dyspnea, unspecified (principal)
CPT/HCPCS: 94060; 94726; 94729

== ENCOUNTER → 2020-07-04 08:25 | Outpatient (CLI) | payer MEDICARE, SELFPAY ==
[2020-07-04 08:54] VITALS: PULSE 107; PULSE 65; PULSE 69; PULSE 75; PULSE 82; PULSE 85; PULSE 92; O2SAT 88; O2SAT 89; O2SAT 91; O2SAT 92; O2SAT 93; O2SAT 95
--- NOTE | 2020-07-04 09:01 | CPS ---
PATIENT 6MW TEST WAS PERFORMED WITH PT ON ROOM AIR UNTIL MINUTE 4, AT WHICH TIME SHE WAS AND REMAINED 88%. OXGEN PLACED AT 2LPM AND REMAINED SUCH FOR DURATION OF TESTING. SPO2 92-93% 2LPM WITH EXERTION. INFO SENT TO [facility] OFFICE FOR ORDER AND ARRANGE PT HOME SET UP. PT AWARE. SHE STATES HER OFFICE F/U WITH [facility] IS NEXT WEEK
--- NOTE | 2020-07-04 15:31 | WT_ITS ---
PSN 6 Minute Walk Test - 6 Minute Walk Test 6 Minute Walk Test: 6 Minute Walk Test PSN:6-Minute Walk Test Start: 07/04/20 08:54 Freq: Status: Active Protocol: RESP.6MINW Document 07/04/20 08:54 [facility] (Rec: 07/04/20 09:07 [facility] [id number]) 6 Minute Walk Test Date Performed 07/04/20 Time Performed 08:30 Height 5 ft 4 in Weight: 99.337 kg Weight in Pounds 219.[address]: Yuni Banks [employer] Assistive device used: None Pre-test Oxygen Delivery Method Room Air Pulse Ox (%) 93 Pulse Rate (60-100 beats/min) 65 Dyspnea Leigha Scale (0-10) 0 1st minute Oxygen Delivery Method Room Air Pulse Ox (%) 91 Pulse Rate (60-100 beats/min) 107 H Number of Rests Taken 0 2nd minute Oxygen Delivery Method Room Air Pulse Ox (%) 89 Pulse Rate (60-100 beats/min) 107 H Number of Rests Taken 0 3rd minute Oxygen Delivery Method Room Air Pulse Ox (%) 89 Pulse Rate (60-100 beats/min) 92 Number of Rests Taken 1 4th minute Oxygen Delivery Method Room Air Pulse Ox (%) 88 Pulse Rate (60-100 beats/min) 82 Number of Rests Taken 1 5th minute Oxygen Flow Rate (L/min) (L/min) 2 Oxygen Delivery Method Nasal Cannula Pulse Ox (%) 93 Pulse Rate (60-100 beats/min) 75 6th minute Oxygen Flow Rate (L/min) (L/min) 2 Oxygen Delivery Method Nasal Cannula Pulse Ox (%) 92 Pulse Rate (60-100 beats/min) 85 Dyspnea Leigha Scale (0-10) 1 Exertion Leigha Scale (6-20) 14 Number of Rests Taken 0 Post-test Oxygen Delivery Method Room Air Pulse Ox (%) 95 Pulse Rate (60-100 beats/min) 69 Full Laps Walked 13 Partial Lap, Number of Tiles Walked 0 Total Distance Walked (ft) 767 07/04/20 09:01 [facility] Services by Nicole Flynn PATIENT 6MW TEST WAS PERFORMED WITH PT ON ROOM AIR UNTIL MINUTE 4, AT WHICH TIME SHE WAS AND REMAINED 88%. OXGEN PLACED AT 2LPM AND REMAINED SUCH FOR DURATION OF TESTING. SPO2 92-93% 2LPM WITH EXERTION. INFO SENT TO [facility] OFFICE FOR ORDER AND ARRANGE PT HOME SET UP. PT AWARE. SHE STATES HER OFFICE F/U WITH [facility] IS NEXT WEEK Initialized on 07/04/20 09:01 - END OF NOTE - Interpretation Interpretation: The patient was noted to be 93% on room air at rest. The patient did desaturate in the fourth minute of walking to 88% was placed on 2 L nasal cannula with improvement to 95%. The patient then was asked to complete the 6-minute ambulation. In total, the patient traveled 767 feet over the course of 6 minutes with no assistive devices, but 2 breaks. These findings are consistent with a respiratory limitation exercise tolerance. - Recommendations Recommendations: No supplemental oxygen is indicated at rest, but patient should be using 2 L nasal cannula oxygen with any exertion.
== END ==
PROVIDERS: PCP Internal Medicine; Referring Provider Nurse Practitioner Acute Care; Visit Provider Nurse Practitioner Acute Care
DX: R06.00 Dyspnea, unspecified (principal)
CPT/HCPCS: 94618

== ENCOUNTER → 2020-10-16 10:27 | Outpatient (CLI) | payer MEDICARE, SELFPAY ==
[2020-08-22 11:02] VITALS: BMI 39.1
--- NOTE | 2020-10-16 10:30 | BI_ITS ---
MAMMOGRAPHY - BILATERAL SCREENING REASON FOR EXAM: Female, 65 years old. Routine annual screening examination. PERTINENT HISTORY: Grandmother with breast cancer. Aunt with breast cancer. Prior right stereotactic breast biopsy. TECHNIQUE: Digital bilateral breast jessica (3D mammographic acquisition) in the CC and MLO projections. 2-D mediolateral oblique (MLO) and craniocaudad (CC) views of both breasts were obtained. CAD: Full Field Digital Mammography with Computer Added Detection was performed. COMPARISON: Comparison is made with prior study dated 08/18/2016. FINDINGS: Breast Composition: The breasts are heterogeneously dense, which may obscure small masses. There are no dominant masses or suspicious calcifications. Stable punctate calcifications in both breasts suggestive of adenosis. No focal clusters seen. No other significant abnormalities are identified. There has been no significant change since the prior study. BI/SCRN MAMM (CAD)W/JESSICA BILAT IMPRESSION: Stable bilateral screening mammogram. Yearly follow-up mammogram recommended. (A) ASSESSMENT CATEGORY: BIRADS Category 2: Benign. A letter regarding these results will be sent to the patient by the facility within 30 days. Approximately 10% of breast cancers are not detected by mammography. A normal mammogram should not delay biopsy of a clinically suspicious abnormality. [id number] Electronically Signed: Daryn Phelan MD at 11:53 EST , Service support ,
--- NOTE | 2020-10-16 10:33 | BD_ITS ---
STUDY: DUAL ENERGY X-RAY ABSORPTIOMETRY / DXA REASON FOR EXAM: Female, 65 years old. 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 COMPARISON: Comparison is made with prior study dated 11/17/2011. FINDINGS: Lumbar Spine (L1-L4): g/cm2 (1.316) / T-score (1.0) / Z-score (2.6) Findings are suggestive of normal bone density with a low fracture risk. Left Femur Total: g/cm2 (1.016) / T-score (0.1) / Z-score (1.3) Left Femoral Neck: g/cm2 (0.900) / T-score (-1.0) / Z-score (0.5) Right Femur Total: g/cm2 (1.061) / T-score (0.4) / Z-score (1.6) Right Femoral Neck: g/cm2 (0.957) / T-score (-0.6) / Z-score (0.9) The T-Scores on the most recent prior examination were: Lumbar Spine (L1-L4): There has been improvement of bone density since the previous examination. Left Femur Total: which represents a worsening of 6.2%. Right Femur Total: which represents a worsening of 0.9%. BD/Dexa Bone Density Study IMPRESSION: The patient is considered normal as outlined below according to World Eduardo Organization (WHO) criteria with a low fracture risk. There has been worsening of bone density since the previous examination. Reference Information: The T-score is the number of standard deviations above or below the standard which is normal for young adults at their peak bone mineral density. The World Health Organization (WHO) interprets the T-scores as follows: Above -1 Normal bone density Between -1 and -2.5 Osteopenia Equal to / or below -2.5 Osteoporosis As a practical clinical guideline, osteopenia may be graded as follows: Mild -1 through -1.5 Moderate -1.6 through -2.0 Severe -2.1 through -2.4 The Z-score is the number of standard deviations above or below age-matched controls. A Z-score of less than -1.5 would be considered abnormal. References: 1. NIH Osteoporosis and Related Bone Diseases www osteo.org 2. International Society for Clinical Densitometry www iscd.org 3. National Osteoporosis Foundation www nof.org Electronically Signed: Daryn Phelan MD at 12:32 EST , Service support ,
== END ==
PROVIDERS: PCP Internal Medicine; Referring Provider Internal Medicine; Visit Provider Internal Medicine
DX: Z12.31 Encounter for screening mammogram for malignant neoplasm of breast (principal); Z78.0 Asymptomatic menopausal state
CPT/HCPCS: 77063; 77067; 77080

== ENCOUNTER → 2020-10-29 12:36 | Outpatient (CLI) | payer MEDICARE, SELFPAY ==
[2020-08-22 11:02] VITALS: BMI 39.1
== END ==
PROVIDERS: PCP Internal Medicine; Referring Provider Internal Medicine Cardiovascular Disease; Visit Provider Internal Medicine Cardiovascular Disease
DX: I48.19 Other persistent atrial fibrillation (principal); R00.0 Tachycardia, unspecified; R00.2 Palpitations
CPT/HCPCS: 93225; 93226

== ENCOUNTER → 2021-08-12 12:31 | Outpatient (CLI) | payer MEDICARE, SELFPAY ==
[2021-08-12 13:09] VITALS: PULSE 67; PULSE 71; PULSE 73; PULSE 75; PULSE 77; PULSE 78; PULSE 81; PULSE 82; O2SAT 90; O2SAT 92; O2SAT 93; O2SAT 94
--- NOTE | 2021-08-12 14:50 | PCM.PSN.6M ---
PSN 6 Minute Walk Test 6 Minute Walk Test 6 Minute Walk Test: 6 Minute Walk Test PSN:6-Minute Walk Test Start: 08/12/21 13:09 Freq: Status: Active Protocol: RESP.6MINW Document 08/12/21 13:09 [facility] (Rec: 08/12/21 13:11 [facility] [id number]) 6 Minute Walk Test Date Performed 08/12/21 Time Performed 12:30 Height 5 ft 3 in Weight: 97.976 kg Weight in Pounds 216.[address]: Ernesto Webster Assistive device used: None Pre-test Oxygen Delivery Method Room Air Pulse Ox (%) 94 Pulse Rate (60-100 beats/min) 67 Dyspnea Leigha Scale (0-10) 0 Exertion Leigha Scale (6-20) 6 1st minute Oxygen Delivery Method Room Air Pulse Ox (%) 93 Pulse Rate (60-100 beats/min) 71 2nd minute Oxygen Delivery Method Room Air Pulse Ox (%) 94 Pulse Rate (60-100 beats/min) 75 3rd minute Oxygen Delivery Method Room Air Pulse Ox (%) 92 Pulse Rate (60-100 beats/min) 77 4th minute Oxygen Delivery Method Room Air Pulse Ox (%) 92 Pulse Rate (60-100 beats/min) 78 5th minute Oxygen Delivery Method Room Air Pulse Ox (%) 90 Pulse Rate (60-100 beats/min) 81 6th minute Oxygen Delivery Method Room Air Pulse Ox (%) 90 Pulse Rate (60-100 beats/min) 82 Dyspnea Leigha Scale (0-10) 1 Exertion Leigha Scale (6-20) 13 Post-test Oxygen Delivery Method Room Air Pulse Ox (%) 93 Pulse Rate (60-100 beats/min) 73 Full Laps Walked 15 Partial Lap, Number of Tiles Walked 20 Total Distance Walked (ft) 905 Interpretation Interpretation: The patient was able to ambulate 905 feet over the course of 6 minutes on room air with no assistive devices or breaks. The patient did experience significant desaturation from a baseline of 94% to as long as 90% without any significant tachycardia. These findings are consistent with a respiratory limitation exercise tolerance. Recommendations Recommendations: No supplemental oxygen is indicated at this time. However, patient will need to be followed closely given level of desaturation.
== END ==
PROVIDERS: PCP Internal Medicine; Referring Provider Internal Medicine Critical Care Medicine; Visit Provider Internal Medicine Critical Care Medicine
DX: I27.21 Secondary pulmonary arterial hypertension (principal)
CPT/HCPCS: 94618

== ENCOUNTER 2021-10-08 10:03 | Outpatient (CLI) | payer MEDICARE, SELFPAY ==
[2021-10-08 11:41] LABS: AST(SGOT) 9 U/L (15-37); Alanine Aminotransfer ALT/SGPT 14 U/L (13-56); Albumin, Serum 3.5 g/dL (3.2-5.0); Alkaline Phosphatase 86 U/L (45-117); Bilirubin, Direct 0.16 mg/dL (0.00-0.30); Cholesterol 162 mg/dL (200); Globulin 3.7 g/dL (2.2-4.2); High Density Lipoprotein 59 mg/dL; Protein, Total 7.2 g/dL (6.4-8.2); Triglycerides 66 mg/dL; Very Low Density Lipoprotein 13 mg/dL (5-40)
== END 2021-10-08 23:59 | disposition short-term general hospital (02) ==
LOC: LAB 10:04
PROVIDERS: PCP Internal Medicine; Visit Provider Nurse Practitioner Gerontology
DX: E78.5 Hyperlipidemia, unspecified (principal)
CPT/HCPCS: 36415; 80061; 80076

== ENCOUNTER 2021-11-12 09:55 | Outpatient (CLI) | payer MEDICARE, SELFPAY ==
--- NOTE | 2021-11-12 09:58 | ECHOD_ITS ---
Reason For Study: Bicuspid AoV Procedure This was a 2D Doppler, Color Flow transthoracic echocardiogram. The exam was of adequate technical quality. Exam performed in department. Left Ventricle Normal LV size. Left ventricular systolic function is normal. The estimated ejection fraction is 60 %. No regional wall motion abnormalities noted. Right Ventricle Normal RV size. Normal systolic function. Atria The left atrium is mildly enlarged. Normal right atrium. No doppler evidence for ASD. Mitral Valve There is mild mitral annular calcification. Extension of the mitral annular calcification on the base of the posterior mitral valve leaflet. Mild (1+) mitral valve insufficiency. Tricuspid Valve Normal tricuspid valve. Mild tricuspid valve insufficiency. Right ventricular systolic pressure estimated to be 54 mmHg. Aortic Valve Based upon the 2D echocardiographic images obtained there appears to be diffuse thickening, calcification, and restriction, of the aortic valve cusps and the appearance of fusion of the right and left coronary cusps, thus, resulting in a functionally bicuspid appearing aortic valve. Moderate aortic stenosis. Pulmonic Valve The pulmonic valve is not well visualized. Mild (1+) pulmonic valve insufficiency. Great Vessels Mildly dilated aortic root. Pericardium/Pleural No pericardial effusion. MMode/2D Measurements & Calculations LVIDd: 4.5 cm IVSd: 0.92 cm LVOT diam: 2.1 cm LVIDs: 2.7 cm LVPWd: 1.0 cm LVOT area: 3.4 cm2 RVDd: 4.1 cm FS: 41.6 % Ao root diam: 4.2 cm LAV(MOD-bp): 69.8 ml LVAd ap4: 26.4 cm2 LAV(MOD-bp) Indexed: 34.7 ml/m2 LVLd ap4: 7.7 cm LAV(MOD-sp2): 75.6 ml EDV(MOD-sp4): 73.7 ml LAV(MOD-sp4): 65.3 ml EDV(sp4-el): 77.0 ml LVAs ap4: 15.6 cm2 LVLs ap4: 6.7 cm ESV(MOD-sp4): 31.7 ml ESV(sp4-el): 30.5 ml EF(MOD-sp4): 57.0 % EF(sp4-el): 60.3 % SV(MOD-sp4): 42.0 ml SV(sp4-el): 46.5 ml Aortic Valve Planimetry: 1.0 cm2 LA A4 area: 20.1 cm2 LA dimension(2D): 4.3 cm RA A4 area: 10.1 cm2 Doppler Measurements & Calculations MV E max darius: 86.1 cm/sec Lat Peak E' Darius: 10.8 cm/sec Med Peak E' Darius: 6.1 cm/sec MV A max darius: 49.8 cm/sec E/E' lat: 7.9 E/E' med: 14.2 MV E/A: 1.7 Ao V2 max: 335.2 cm/sec LV V1 max: 98.0 cm/sec SV(LVOT): 83.4 ml Ao max P.9 mmHg LV V1 max P.8 mmHg Ao V2 mean: 241.8 cm/sec LV V1 mean P.3 mmHg Ao mean P.0 mmHg LV V1 mean: 73.3 cm/sec Ao V2 VTI: 83.5 cm LV V1 VTI: 24.3 cm CELESTE(I,D): 1.00 cm2 CELESTE(V,D): 1.0 cm2 PA V2 max: 86.7 cm/sec PI end-d darius: 158.4 cm/sec TR max darius: 333.7 cm/sec TR max P.5 mmHg ECHO/Echo Complete Interpretation Summary Left ventricular systolic function is normal. The estimated ejection fraction is 60 %. The left atrium is mildly enlarged. There is mild mitral annular calcification. Extension of the mitral annular calcification on the base of the posterior mitr al valve leaflet. Mild (1+) mitral valve insufficiency. Mild tricuspid valve insufficiency. Based upon the 2D echocardiographic images obtained there appears to be diffuse thickening, calcification, and restriction, of the aortic valve cusps and the appearance of fusion of the right and left coronary cusps, thus, resulting in a functionally bicuspid appearing a ortic valve. Moderate aortic stenosis. Mild (1+) pulmonic valve insufficiency. Mildly dilated aortic root. Right ventricular systolic pressure estimated to be 54 mmHg. Transmitral diastolic flow velocities suggest diastolic dysfunction (pseudonorm al pattern). Ordering Physician: Rachna De La Fuente Referring Physician: Lydia Copeland Performed By: Opal Martinez, YESSY, RVT
== END 2021-11-12 23:59 | disposition home or self-care (01) ==
LOC: CVS 09:57
PROVIDERS: PCP Internal Medicine; Referring Provider Nurse Practitioner Gerontology; Visit Provider Nurse Practitioner Gerontology
DX: Q23.1 Congenital insufficiency of aortic valve (principal)
CPT/HCPCS: 93306

== ENCOUNTER → 2022-04-15 | Outpatient (CLI) | payer MEDICARE, SELFPAY ==
--- NOTE | 2022-04-15 15:55 | US_ITS ---
STUDY: RENAL ULTRASOUND - COMPLETE REASON FOR EXAM: Female, 67 years old. HEMATURIA TECHNIQUE: Ultrasound evaluation of the kidneys was performed with real-time and static de oliveira-scale imaging. COMPARISON: None. FINDINGS: RIGHT KIDNEY: Length: 10.2 cm. Parenchyma: 5.9 x 5.2 x 5.9 cm cyst in the upper pole. Hydronephrosis: None. LEFT KIDNEY: Length: 11.9 cm. Parenchyma: 0.7 cm echogenic focus in the lower pole likely a calculus. 2 small cysts: 1.2 x 0.9 x 1.1 cm, and 1.4 x 1 x 1.2 cm. Hydronephrosis: None. BLADDER: Not distended which precludes evaluation. Bladder volume 11 mL. Ureteral jets were not visualized. US/Kidney and Bladder IMPRESSION: Bilateral renal cysts. Left intrarenal calculus. No hydronephrosis. Empty bladder. Electronically Signed: Roselia Philippe MD at 7:52 EDT ,
== END | disposition home or self-care (01) ==
LOC: US 15:53
PROVIDERS: PCP Internal Medicine; Referring Provider Nurse Practitioner Family; Visit Provider Nurse Practitioner Family
DX: R31.9 Hematuria, unspecified (principal)
CPT/HCPCS: 76770

== ENCOUNTER → 2022-05-13 | Outpatient (CLI) | payer MEDICARE, SELFPAY ==
--- NOTE | 2022-05-13 13:59 | CT_ITS ---
STUDY: CT ABDOMEN AND PELVIS WITHOUT CONTRAST REASON FOR EXAM: Female, 67 years old. LEFT RENAL STONE UTI. Three-week history of hematuria. RADIATION DOSAGE (If Supplied By Facility): CTDIvol = ( 22.55 ) mGy, DLP = ( 1211.51 ) mGycm TECHNIQUE: Transaxial images were obtained from the dome of the diaphragm to the symphysis pubis without oral contrast, and without intravenous contrast. Sagittal and coronal images were reconstructed. Individualized dose optimization techniques were used for this CT. COMPARISON: None. FINDINGS: Small calcifications in the right breast. The visualized lung bases are unremarkable. Coronary artery calcification. Normal liver. Normal gallbladder and extrahepatic biliary system. Normal spleen. Normal pancreas. Normal bilateral adrenal glands. There is a 5.2 cm x 5 cm cyst in the upper midpole region of the right kidney. There is also evidence of a 1.8 cm x 1.3 cm cyst in the mid medial aspect of the right kidney. 2 mm nonobstructive calculus in the lower pole calyx of the right kidney. 1.2 cm cyst in the posterior aspect of the midportion of the left kidney. Normal visualized stomach. Normal small intestine. There are multiple colonic diverticula consistent with diverticulosis. The patient is status post appendectomy. There is diffuse atherosclerotic calcification of the abdominal aorta, without a demonstrated aneurysm. Normal inferior vena cava. Normal retroperitoneum. Normal urinary bladder. Normal abdominal wall. There are degenerative changes of the visualized lumbar spine. CT/Abdomen/Pelvis without Cont IMPRESSION: Bilateral renal cysts more prominent on the right side. Small nonobstructive calculus in the lower pole calyx of the right kidney. Electronically Signed: Daryn Phelan MD at 15:09 EDT ,
== END | disposition home or self-care (01) ==
LOC: CT 13:57
PROVIDERS: PCP Internal Medicine; Referring Provider Urology; Visit Provider Urology
DX: N39.0 Urinary tract infection, site not specified (principal); N20.0 Calculus of kidney
CPT/HCPCS: 74176

== ENCOUNTER → 2022-12-08 | Outpatient (CLI) | payer MEDICARE, SELFPAY ==
--- NOTE | 2022-12-08 08:06 | ECHOD_ITS ---
Reason For Study: AFIB & AV STENOSIS Procedure This was a 2D Doppler, Color Flow transthoracic echocardiogram. Exam performed in department. Left Ventricle Normal size and thickness. The left ventricular ejection fraction is 60 %. Normal diastology for age. Right Ventricle Normal right ventricle. Atria The left atrium is mildly enlarged. Normal right atrium. Mitral Valve Mild diffuse mitral valve calcification. Trivial mitral valve insufficiency. Tricuspid Valve Mild tricuspid valve insufficiency. Pulmonary artery systolic pressure is 35 mmHg. Aortic Valve Trisinus/trileaflet aortic valve. Moderate diffuse aortic valve calcification. Moderate aortic stenosis. Pulmonic Valve The pulmonic valve is not well visualized. Mild (1+) pulmonic valve insufficiency. Great Vessels Mild to moderately dilated aortic root. Pericardium/Pleural No pericardial effusion. MMode/2D Measurements & Calculations LVIDd: 4.0 cm IVSd: 1.1 cm LVOT diam: 2.1 cm LVIDs: 2.8 cm LVPWd: 1.1 cm LVOT area: 3.4 cm2 FS: 30.7 % Ao root diam: 4.3 cm LAV(MOD-bp): 89.4 ml LA A4 area: 23.7 cm2 LAV(MOD-bp) Indexed: 44.0 ml/m2 LAV(MOD-sp2): 73.6 ml LAV(MOD-sp4): 89.2 ml LA dimension(2D): 4.0 cm RA A4 area: 13.8 cm2 Time Measurements MV dec time: 0.23 sec Doppler Measurements & Calculations MV E max darius: 89.1 cm/sec Lat Peak E' Darius: 13.4 cm/sec Med Peak E' Darius: 8.3 cm/sec MV A max darius: 43.5 cm/sec E/E' lat: 6.7 E/E' med: 10.7 MV E/A: 2.0 MV dec slope: 385.3 cm/sec2 Ao V2 max: 341.0 cm/sec LV V1 max: 99.4 cm/sec Ao max P.3 mmHg LV V1 max P.0 mmHg Ao V2 mean: 249.4 cm/sec LV V1 mean P.5 mmHg Ao mean P.0 mmHg LV V1 mean: 75.8 cm/sec Ao V2 VTI: 86.4 cm LV V1 VTI: 26.1 cm AV (velocity ratio): 0.30 CELESTE(I,D): 1.0 cm2 CELESTE(V,D): 1.0 cm2 SV(LVOT): 89.8 ml PA V2 max: 130.2 cm/sec TR max darius: 273.7 cm/sec TR max P.0 mmHg ECHO/Echo Complete Interpretation Summary The left ventricular ejection fraction is 60 %. The left atrium is mildly enlarged. Mild tricuspid valve insufficiency. Moderate aortic stenosis. Mild (1+) pulmonic valve insufficiency. Mild to moderately dilated aortic root. Ordering Physician: Ralph Mg Referring Physician: Lydia Copeland Performed By: Charlene Banks, YESSY, RVT
[2022-12-08 09:49] LABS: AST(SGOT) 11 U/L (15-37); Alanine Aminotransfer ALT/SGPT 11 U/L (13-56); Albumin, Serum 3.6 g/dL (3.2-5.0); Alkaline Phosphatase 93 U/L (45-117); Bilirubin, Direct 0.13 mg/dL (0.00-0.30); Cholesterol 187 mg/dL (200); Globulin 3.7 g/dL (2.2-4.2); High Density Lipoprotein 57 mg/dL; Protein, Total 7.3 g/dL (6.4-8.2); Triglycerides 92 mg/dL; Very Low Density Lipoprotein 18 mg/dL (5-40)
== END | disposition home or self-care (01) ==
PROVIDERS: PCP Internal Medicine; Referring Provider Internal Medicine Cardiovascular Disease; Visit Provider Internal Medicine Cardiovascular Disease
DX: E78.00 Pure hypercholesterolemia, unspecified (principal); I48.19 Other persistent atrial fibrillation; I10 Essential (primary) hypertension; Z98.890 Other specified postprocedural states; Q23.1 Congenital insufficiency of aortic valve
CPT/HCPCS: 36415; 80061; 80076; 93306

== ENCOUNTER → 2023-06-17 | Outpatient (CLI) | payer MEDICARE, SELFPAY ==
[2023-06-17 11:19] LABS: Absolute Lymphocyte Count 1.82 X10^3/uL (0.83-4.51); Absolute Neutrophil Count 6.7 X10^3/uL (2.0-7.7); Basophil# 0.06 X10^3/uL; Basophil% 0.6 % (0-1); Eosinophil# 0.13 X10^3/uL; Eosinophils% 1.4 % (0-5); Hematocrit 40.7 % (37-47); Hemoglobin 12.8 g/dL (12.0-15.0); Lymphocyte # 1.82 X10^3/ul (0.83-4.51); Lymphocyte % 19.5 % (19-41); Mean Corp Hgb Conc 31.4 g/dL (32-36); Mean Corpuscular Hgb 29.1 pg (27.0-32.0); Mean Corpuscular Volume 92.5 fL (81-99); Monocyte% 6.4 % (0-10); NRBC Flagged by Analyzer 0 % (0-5); Neutrophil # 6.68 X10^3/uL (2.7-7.7); Neutrophil % 71.5 % (47-70); Platelet Count 233 K/mm3 (150-450); RBC Distribution Width CV 13.7 % (11.6-14.6); RBC Distribution Width SD 46.4 fl (35.1-43.9); White Blood Count 9.4 K/mm3 (4.4-11.0)
[2023-06-17 11:50] LABS: BNP,B-Type NATRIURETIC PEPTIDE 85.6 pg/mL (0-100)
[2023-06-17 12:04] LABS: AST(SGOT) 14 U/L (15-37); Alanine Aminotransfer ALT/SGPT 13 U/L (13-56); Albumin, Serum 3.7 g/dL (3.2-5.0); Alkaline Phosphatase 98 U/L (45-117); Anion Gap 5 (5-15); BUN 21 mg/dL (7-18); BUN/Creat Ratio 23.5 RATIO (10-20); Bilirubin, Direct 0.13 mg/dL (0.00-0.30); Calcium,Total 9.7 mg/dL (8.5-10.1); Chloride 107 mmol/L (98-107); Cholesterol 151 mg/dL (200); Creatinine, Serum 0.89 mg/dL (0.55-1.02); EST Glomerular Filtration Rate 67 mL/min (>60); Est Glom Filt Rate - Afr Amer 81 mL/min (>60); Globulin 4.1 g/dL (2.2-4.2); Glucose 92 mg/dL (74-106); High Density Lipoprotein 51 mg/dL; Potassium 4.2 mmol/L (3.5-5.1); Protein, Total 7.8 g/dL (6.4-8.2); Sodium Level 141 mmol/L (136-145); Triglycerides 107 mg/dL; Very Low Density Lipoprotein 21 mg/dL (5-40)
== END | disposition home or self-care (01) ==
LOC: LAB 10:55
PROVIDERS: PCP Internal Medicine; Referring Provider Nurse Practitioner Gerontology; Visit Provider Nurse Practitioner Gerontology
DX: E78.00 Pure hypercholesterolemia, unspecified (principal); R06.09 Other forms of dyspnea
CPT/HCPCS: 36415; 80048; 80061; 80076; 83880; 85025

== ENCOUNTER → 2023-07-06 | Outpatient (CLI) | payer MEDICARE, SELFPAY ==
--- NOTE | 2023-07-07 08:01 | PFT ---
INTRODUCTION: The patient is a 68-year-old female who presents for pulmonary function studies secondary to a diagnosis of pulmonary hypertension. Respiratory therapy reported good patient effort. Bronchodilators were used during testing. INTERPRETATION: Forced expiration spirometry demonstrates no evidence of a large airways obstructive ventilatory defect. There was no significant response to aerosolized bronchodilators. Body plethysmography was performed and revealed a decreased TLC to 3.72 L, 75% of predicted, indicative of a mild restrictive ventilatory impairment. Diffusing capacity by single breath CO is reduced to 55% of predicted. IMPRESSION: Mild restrictive ventilatory impairment with symmetric reduction in diffusion capacity.
== END | disposition home or self-care (01) ==
PROVIDERS: PCP Internal Medicine; Referring Provider Internal Medicine Critical Care Medicine; Visit Provider Internal Medicine Critical Care Medicine
DX: I27.21 Secondary pulmonary arterial hypertension (principal)
CPT/HCPCS: 94060; 94726; 94729

== ENCOUNTER → 2023-07-09 | Outpatient (CLI) | payer MEDICARE, SELFPAY ==
[2023-07-09 12:48] VITALS: PULSE 68; PULSE 69; PULSE 71; PULSE 75; PULSE 80; PULSE 83; O2SAT 91; O2SAT 92; O2SAT 93; O2SAT 94; O2SAT 95
--- NOTE | 2023-07-09 12:52 | CPS ---
Pt stopped for a rest at minute 5 briefly do to back pain.
--- NOTE | 2023-07-10 07:40 | PCM.PSN.6M ---
PSN 6 Minute Walk Test 6 Minute Walk Test 6 Minute Walk Test: 6 Minute Walk Test PSN:6-Minute Walk Test Start: 07/09/23 12:47 Freq: Status: Active Protocol: [id number] Document 07/09/23 12:48 [facility] (Rec: 07/09/23 12:55 [facility] [id number]) 6 Minute Walk Test Date Performed 07/09/23 Time Performed 12:30 Height 5 ft 4 in Weight: 229 lb Weight in Pounds 229.[address]: Dr Webster Assistive device used: None Pre-test Oxygen Delivery Method Room Air Pulse Ox 92 Pulse Rate (60-100) 68 Dyspnea Leigha Scale (0-10) 0.5 Exertion Leigha Scale (6-20) 6 1st minute Oxygen Delivery Method Room Air Pulse Ox 92 Pulse Rate (60-100) 69 2nd minute Oxygen Delivery Method Room Air Pulse Ox 91 Pulse Rate (60-100) 71 3rd minute Oxygen Delivery Method Room Air Pulse Ox 91 Pulse Rate (60-100) 75 4th minute Oxygen Delivery Method Room Air Pulse Ox 91 Pulse Rate (60-100) 75 5th minute Oxygen Delivery Method Room Air Pulse Ox 93 Pulse Rate (60-100) 80 Dyspnea Leigha Scale (0-10) 2 Reported Symptoms Increased Work of Breathing 6th minute Oxygen Delivery Method Room Air Pulse Ox 94 Pulse Rate (60-100) 83 Dyspnea Leigha Scale (0-10) 2 Exertion Leigha Scale (6-20) 13 Reported Symptoms Increased Work of Breathing Post-test Oxygen Delivery Method Room Air Pulse Ox 95 Pulse Rate (60-100) 75 Full Laps Walked 12 Partial Lap, Number of Tiles Walked 20 Total Distance Walked (ft) 728 07/09/23 12:52 Cardiopulmonary Services by Nicole Flynn Pt stopped for a rest at minute 5 briefly do to back pain. Initialized on 07/09/23 12:52 - END OF NOTE Interpretation Interpretation: The patient ambulated 728 feet over the course of 6 minutes beginning on room air without assistive devices. Pretesting oxygen saturation was noted to be 92% on room air. With ambulation, the maggie oxygen saturation was 91%. There was no significant exertional oxygen desaturation. Recommendations Recommendations: There is no indication for the use of supplemental oxygen at this time.
== END | disposition home or self-care (01) ==
LOC: PSN 12:26
PROVIDERS: PCP Internal Medicine; Referring Provider Internal Medicine Critical Care Medicine; Visit Provider Internal Medicine Critical Care Medicine
DX: I27.21 Secondary pulmonary arterial hypertension (principal)
CPT/HCPCS: 94618

== ENCOUNTER → 2023-09-21 | Outpatient (CLI) | payer MEDICARE, SELFPAY ==
--- OUTSIDE RECORDS SUMMARY | 2023-09-21 20:28 | XMS RPT_ITS | CCD ---
Author Name Unknown Address [address] [place] [address] Organization [facility] Care Team Providers Care Cash Register Servicer Name Role Phone ALEJANDRO SONI Unavailable Unavailable STANLEY MARCOS Unavailable Unavailable ALEJANDRO SONI Unavailable Unavailable STANLEY MARCOS Unavailable Unavailable JOSE MARTE Unavailable Unavailable KEVIN MOMIN Unavailable Unavailable Lydia Marte Unavailable Alejandro Rai Unavailable [facility], [facility] Unavailable Julio Gordon Unavailable Rachna Lyon Unavailable Unavailable Dena Hurd Unavailable Unavailable Unavailable Unavailable Lydia Marte Unavailable Alejandro Rai Unavailable [facility], [facility] Unavailable Julio Gordon Unavailable Slarb, Dena Unavailable Unavailable Rachna De La Fuente Unavailable Unavailable Rachna Lyon Unavailable Unavailable Unavailable Unavailable Laura Joe Unavailable Unavailable JOSE Romo Unavailable Unavailable Rachna Lyon Unavailable Unavailable Erika Dennis Unavailable Unavailable Unavailable Clau Mcknight Unavailable Unavailable [facility] Unavailable Unavailable Unavailable Lexi Wilburn Unavailable Unavailable Lydia Marte DO Unavailable Alejandro Rai Unavailable [facility], [facility] Unavailable Physical Therapy, [facility] Unavailable [phone] Dr. Julio Gordon Unavailable [phone] Cosmo PEST MANAGEMENT SUPERVISOR, Lexi Unavailable Unavailable Roxanna VIROLOGIST, Clau Unavailable Unavailable Vickey PEST MANAGEMENT SUPERVISOR, Dena Unavailable Unavailable Sonali RN, Rachna Unavailable Unavailable Unavailable Unavailable Friend, Dr. Kaplan Unavailable Fadi PEST MANAGEMENT SUPERVISOR, David Unavailable Unavailable Demetrius STARKSN, JOSE Unavailable Unavailable Leanna GERARD, Shoshana Unavailable Unavailab Lydia Mcwilliams DO Unavailable Ben FIRE EXTINGUISHER REPAIRER, Thania Unavailable Nida Amos Unavailable Lydia Marte DO Attending Unavailable Lydia Marte DO Consulting Unavailable Lydia Marte DO Referring Unavailable Luzmaria MURRAY, Ophelia Santana Unavailable Ophelia Fonseca MD Primary Care Pro vider OPHELIA FONSECA Attending Leslie vailable OPHELIA FONSECA Primary Care Leslie vailable OPHELIA FONSECA Primary Care Leslie vailable ANTONETTE DAVIS Attending Unavailable Allergies Allergy Classification Reported Allergen(s) Allergy Type Date of Onset Reaction(s) Facility Quinolones (antibiotic) (4 sources) levoFLOXacin; Translations: [Levaquin *FLUOROQUINOLONE S*] Drug Allergy [facility] Work Phone: Medications Current Medications Medication Drug Class(es) Dates Sig (Normalized) Sig (Original) apixaban 5 mg oral tablet (20 sources) Factor Xa Inhibitor Start: 07-03-2023 take 1 tablet by mouth twice daily Eliquis 5 mg Tab Take 1 (one) tablet (5 mg total) by mouth 2 (two) times a day . 0 07/03/2023 Active Completed/Discontinued Medications Medication Drug Class(es) Dates Sig (Normalized) Sig (Original) [id number] 200 actuat albuterol 0.09 mg/actuat metered dose inhaler (20 sources) beta2-Adrenergic Agonist Start: 10-26-2022 take 2 puff(s) by inhalation four times daily albuterol sulfate 90 mcg/actuation inhalation HFA Aerosol with Adapter 2 puffs 4 times per day;shortness of breath or wheezing for 0 days Quantity: 1 {Each} Refills: 1 Ordered: 26-Oct-2022 Ben PATTIEThania Start : 26-Oct-2022 Active Problems Active Problems Problem Classification Problem Date Documented Da te Episodic/Chronic Acute and chronic tonsillitis (20 sources) Other chronic disease of tonsils and adenoids; Translations: [Asymmetric tonsils] 08-16-2018 Chronic Past or Other Problems Problem Classification Problem Date Documented Da te Episodic/Chronic Cardiac dysrhythmias (2 sources) Palpitations; Translations: [Tachycardia, unspecified] Onset: 11-08-2017 Episodic Cardiac dysrhythmias (15 sources) Cardiac dysrhythmias Inflammation; infection of eye (except that caused by tuberculosis or sexually transmitteddisease) (20 sources) Cellulitis of right eyelid; Translations: [Hordeolum externum of right eyelid] 02-27-2019 Other lower respiratory disease (15 sources) Pulmonary congestion ; Translations: [Chest congestion] Resolved: 08-16-2018 08-16-2018 Chronic Results Test Name Value Interpretation Reference Range Facil ity Vital Signs Date Time Vital Sign Value Performing Clinician Facility 09-02-2023 14:40-0500 Body height 162.6 cm Ophelia Fonseca MD Work Phone: [facility] 09-02-2023 14:40-0500 Body mass index (BMI) [Ratio] 39.48 kg/m2 Ophelia Fonseca MD Work Phone: [facility] 09-02-2023 14:40-0500 Body temperature 98.1 [degF] Ophelia Fonseca MD Work Phone: [facility] 09-02-2023 14:40-0500 Body weight 104.33 kg Ophelia Fonseca MD Work Phone: [facility] 09-02-2023 14:40-0500 Diastolic blood pressure 82 mm[Hg] Ophelia Fonseca MD Work Phone: [facility] 09-02-2023 14:40-0500 Heart rate 74 /min Ophelia Fonseca MD Work Phone: [facility] 09-02-2023 14:40-0500 Respiratory rate 16 /min Ophelia Fonseca MD Work Phone: [facility] 09-02-2023 14:40-0500 SaO2% (BldA) [Mass fraction] 92 % Ophelia Fonseca MD Work Phone: [facility] 09-02-2023 14:40-0500 Systolic blood pressure 136 mm[Hg] Ophelia Fonseca MD Work Phone: [facility] 10-26-2022 09:21-0500 Body height 163.83 cm Dena Hurd LPN [facility] Work Phone: 10-26-2022 09:21-0500 Body mass index (BMI) [Ratio] 38.19 kg/m2 Dena Hurd LPN [facility] Work Phone: 10-26-2022 09:21-0500 Body surface area Derived from formula 2.07 m2 Dena Hurd LPN [facility] Work Phone: 10-26-2022 09:21-0500 Body temperature 97.2 [degF] Dena Hurd LPN [facility] Work Phone: Encounters Encounter Date Encounter Type Care Provider Facility Start: 09-03-2023 ambulatory OPHELIA RAMESH [facility] Amb[facility] Start: 09-02-2023 End: 09-02-2023 ambulatory OPHELIA SANTANA [facility] Start: 09-02-2023 End: 09-02-2023 Office outpatient new 45 minutes Ophelia Fonseca MD Work Phone: [facility] Primary Care Physicians Procedures Date Procedure Procedure Detail Performing Clinician Start: 07-10-2023 End: 07-10-2023 6 Minute Walk Test Procedure Note: See Note; NOTES: [facility] Pulmonary Services/Neurology [address] [place] [address] MR#: [id number] Acct: [id number] Name: ADRIANA DILL Rep #: [id number] : 1955 68 From: Michael Segal DO Referring Dr: Ernesto Webster MD Status: REG CLI Location: PSN Date: Sex: F C PSN 6 Minute Walk Test 6 Minute Walk Test 6 Minute Walk Test: 6 Minute Walk Test PSN:6-Minute Walk Test Start: 07/09/23 12:47 Freq: Status: Active Protocol: [id number] Document 07/09/23 12:48 AEH (Rec: 07/09/23 12:55 AEH [id number]) 6 Minute Walk Test Date Performed 07/09/23 Time Performed 12:30 Height 5 ft 4 in Weight: 229 lb Weight in Pounds 229.[address]: Dr Webster Assistive device used: None Pre-test Oxygen Delivery Method Room Air Pulse Ox 92 Pulse Rate (60-100) 68 Dyspnea Leigha Scale (0-10) 0.5 Exertion Leigha Scale (6-20) 6 1st minute Oxygen Delivery Method Room Air Pulse Ox 92 Pulse Rate (60-100) 69 2nd minute Oxygen Delivery Method Room Air Pulse Ox 91 Pulse Rate (60-100) 71 3rd minute Oxygen Delivery Method Room Air Pulse Ox 91 Pulse Rate (60-100) 75 4th minute Oxygen Delivery Method Room Air Pulse Ox 91 Pulse Rate (60-100) 75 5th minute Oxygen Delivery Method Room Air Pulse Ox 93 Pulse Rate (60-100) 80 Dyspnea Leigha Scale (0-10) 2 Reported Symptoms Increased Work of Breathing 6th minute Oxygen Delivery Method Room Air Pulse Ox 94 Pulse Rate (60-100) 83 Dyspnea Leigha Scale (0-10) 2 Exertion Leigha Scale (6-20) 13 Reported Symptoms Increased Work of Breathing Post-test Oxygen Delivery Method Room Air Pulse Ox 95 Pulse Rate (60-100) 75 Full Laps Walked 12 Partial Lap, Number of Tiles Walked 20 Total Distance Walked (ft) 728 07/09/23 12:52 Cardiopulmonary Services by Nicole Flynn Pt stopped for a rest at minute 5 briefly do to back pain. Initialized on 07/09/23 12:52 - END OF NOTE Interpretation Interpretation: The patient ambulated 728 feet over the course of 6 minutes beginning on room air without assistive devices. Pretesting oxygen saturation was noted to be 92% on room air. With ambulation, the maggie oxygen saturation was 91%. There was no significant exertional oxygen desaturation. Recommendations Recommendations: There is no indication for the use of supplemental oxygen at this time. 07/10/2341 <Electronically signed by Michael Segal DO> Date Michael Segal DO CC: Date Dictated: 07/10/23739 Date Transcribed: 07/10/23739 Hand Hardener: Dr. Michael Segal DO Signed Lydia Marte DO Work Phone: Start: 07-07-2023 End: 07-07-2023 Pulmonary Function Test Procedure Note: See Note; NOTES: [facility] Pulmonary Services/Neurology [address] [place] [address] MR#: [id number] Acct: [id number] Name: ADRIANA DILL Rep #: [id number] : 1955 68 From: Michael Segal DO Referring Dr: Ernesto Webster MD Status: REG I Location: [facility] Date: 07/06/23 Sex: F C INTRODUCTION: The patient is a 68-year-old female who presents for pulmonary function studies secondary to a diagnosis of pulmonary hypertension. Respiratory therapy reported good patient effort. Bronchodilators were used during testing. INTERPRETATION: Forced expiration spirometry demonstrates no evidence of a large airways obstructive ventilatory defect. There was no significant response to aerosolized bronchodilators. Body plethysmography was performed and revealed a decreased TLC to 3.72 L, 75% of predicted, indicative of a mild restrictive ventilatory impairment. Diffusing capacity by single breath CO is reduced to 55% of predicted. IMPRESSION: Mild restrictive ventilatory impairment with symmetric reduction in diffusion capacity. 07/07/2303 <Electronically signed by Michael Segal DO> Date Michael Segal DO CC: Dr. Ernesto Webster MD; Dr. Lydia Marte DO Date Dictated: 07/07/23800 Date Transcribed: 07/07/23800 Hand Hardener: BLAIRE Signed Lydia Marte DO Work Phone: Start: 06-21-2023 End: 06-21-2023 Pulmonary Visit Report Procedure Note: See Note; NOTES: [facility] [place] [address] [place] [address] OFFICE VISIT Date of Service: 06/21/23 MR#: [id number] Acct: [id number] Name: ADRIANA DILL Rep #: [id number] : 1955 Provider: Dr. Ernesto Webster MD Age/Sex: 68/F Location[place] [facility] Status: Signed Assessment and Plan Assessment and Plan (1) Obstructive sleep apnea: Status: Chronic Comment: BiPAP 16/12 centimeters of water with residual AHI of 5.9 (2) Secondary pulmonary arterial hypertension: Status: Chronic (3) Paroxysmal A-fib: Status: Acute Comment: In NSR 06/2022 Orders: Orders Pulmonary Function Test (Comp) Today I27.21 - Secondary pulmonary arterial hypertension Simple Pulmonary Exercise Test Today I27.21 - Secondary pulmonary arterial hypertension Polysomnography with NCPAP Today G47.33 - Obstructive sleep apnea (adult) (pediatric) Plan Patient is reporting significant progression of shortness of breath and compliance report is showing an increase central apnea. This does not appear to be medication related on review of the current chart. Some concern for congestive heart failure leading to central apneas, but echocardiogram does not show significant deterioration. We will repeat the titration study to see if patient needs to be transitioned to a BiPAP ST. We will also obtain a complete pulmonary function test and walking oximetry. Patient may have progressed to the point that she needs supplemental oxygen on exertion. Given need for testing, will need to transition from annual visits to 3 months to review the data. Obtain complete PFT, walking oximetry and titration PSG. Plan Details Follow Up: 3 Months (CSM) HPI 1 Y FU Details: Patient is a 68-year-old female, currently under the care of Dr. Marte who presents for evaluation secondary to obstructive sleep apnea. Since last visit, patient denies any ER visits, hospitalizations or prednisone burst. Patient overall feels subjectively unchanged compared to previous. Patient has been doing well from an MEGHAN standpoint. Patient currently uses a fullface interface. Patient denies any pain at the interface site, epistaxis or hoarseness. Patient denies any morning headache. Patient denies dry mouth in the morning. Patient wakes up feeling refreshed and takes naps rarely. Patient does not typically use their Pap machine with these naps. Patient has more respiratory complaints at this time. Patient has noted a significant change in exercise tolerance. Patient states that she has difficulty walking around [place] which is a big change from last year. Patient also states that she can have paroxysmal type coughing episodes leading to desaturations into the mid 80s. Patient is not reporting any nocturnal cough. Patient has no constitutional symptoms such as fever, chills, nausea or vomiting. No lower extremity edema has been reported. Review of systems otherwise negative from a constitutional, HEENT, respiratory, cardiovascular, GI, genitourinary, musculoskeletal, skin, neurologic, psychiatric and hematologic system unless stated above. Documentation personally reviewed with the patient Compliance report (May 2023): The patient was compliant 83% of the time for an average use of 6 hours 30 minutes on BiPAP 16/12 cmH2O with a residual AHI of 7.6 and well-controlled leak. Compliance report is suggestive of a predominance of central apnea Echocardiogram (12/08/2022): EF 60% with normal diastology for age. Pulmonary artery pressures are estimated at 35 mmHg and patient does have moderate aortic stenosis with a mild to moderately dilated aortic root Intake Vital Signs 11/30/22 10:36 06/17/23 10:26 06/21/23 05:41 Height 5 ft 3 in 5 ft 3 in 5 ft 3 in Weight: 103.873 kg BMI 40.5 BP 119/79 Blood Pressure Location Rt brachial Position Sitting Respiration 15 Pulse 60 Pulse Source Monitor Temp 36.4 C L Temperature Source Temporal Artery Pulse Oximetry (%) 94 Oxygen Delivery Method room air Intake Visit Reasons: 1 Y FU Chief Complaint: Increased SOB Space Controller Required: No DME Vendor: Kevin Accompanied by: Self Is patient in pain?: Yes (low back ) Pain scale (1-10): 5 Allergies No Known Allergies Allergy (Verified 06/21/23 10:24) Medications lamotrigine 200 mg tablet 200 mg PO DAILY 12/17/14 [History Confirmed 06/21/23] trazodone 100 mg tablet 200 mg PO DAILY 10/18/17 [History Confirmed 06/21/23] sertraline 100 mg tablet 100 mg PO BID 10/19/17 [History Confirmed 06/21/23] venlafaxine 37.5 mg tablet,extended release 24 hr 37.5 mg PO DAILY 10/27/18 [History Confirmed 06/21/23] multivitamin 1 tab PO DAILY 06/05/19 [History Confirmed 06/21/23] cholecalciferol (vitamin D3) 125 mcg (5,000 unit) tablet 5,000 unit PO DAILY 04/04/21 [History Confirmed 06/21/23] coenzyme Q10 200 mg capsule 200 mg PO DAILY 04/04/21 [History Confirmed 06/21/23] gemfibrozil 600 mg tablet 600 mg PO BID #180 tabs 10/05/22 [Rx Confirmed 06/21/23] apixaban 5 mg tablet (Eliquis) 5 mg PO BID #180 tabs 12/11/22 [Rx Confirmed 06/21/23] verapamil 120 mg tablet,extended release 120 mg PO BID #180 tabs 12/11/22 [Rx Confirmed 06/21/23] ezetimibe 10 mg tablet (Zetia) 10 mg PO QDAY #90 tabs 02/04/23 [Rx Confirmed 06/21/23] hydrochlorothiazide 25 mg tablet 25 mg PO QDAY #90 tabs 04/12/23 [Rx Confirmed 06/21/23] metoprolol tartrate 100 mg tablet 100 mg PO BID #180 tabs 04/12/23 [Rx Confirmed 06/21/23] potassium chloride 10 mEq tablet,extended release(part/cryst) 10 meq PO DAILY #90 tabs 04/12/23 [Rx Confirmed 06/21/23] ramipril 10 mg capsule 10 mg PO QDAY #90 caps 04/12/23 [Rx Confirmed 06/21/23] [facility] History Atherosclerotic heart disease of [place] coronary artery without angina pectoris Bicuspid aortic valve Bipolar disorder CAD (coronary artery disease) Essential hypertension GERD (gastroesophageal reflux disease) Hyperlipidemia Long-term use of high-risk medication Non-rheumatic aortic stenosis Non-ST elevation (NSTEMI) myocardial infarction ( 08/21/11) Obstructive sleep apnea Palpitation Persistent atrial fibrillation Secondary pulmonary arterial hypertension Surgical History H/O discectomy History of maze procedure ( 10/22/04) history of pulmonary vein isolation ( 10/11/06) History of right and left heart catheterization ( 03/05/17) Family History Brother CAD (coronary artery disease) from [place] 52 Father Dementia Mother Cancer Social History Smoking Status: Former smoker how long ago did patient quit smokin second hand exposure: No alcohol intake: never substance use type: does not use caffeine: No what type of physical activity do you participate in: none Exam Const Constitutional: Positive conversant, cooperative, in no acute respiratory distress, healthy appearing, well developed, well nourished, good hygiene and obese Head Head: Yes normocephalic, Yes atraumatic and No cyanosis of lips/distal nose Eyes Eye: Positive clear conjunctiva; Negative nystagmus, scleral abnormality or cataract present Ears Ear: Positive hearing normal and external ears normal; Negative hard of hearing Nose Nose: Yes other (face mask in place) Neck Neck: Positive normal visual inspection, full ROM and trachea midline Chest Wall Chest: Positive normal inspection of the chest and symmetric chest movement Resp lung sounds: Positive clear to auscultation, good air exchange and normal expiratory time; Negative wheezes, wheeze present on forced exhalation, rhonchi, rales, dullness or use of accessory muscles Cardio Cardiac: Positive regular rate, regular rhythm, S1 normal and S2 normal; Negative murmur, rub or gallop GI GI: Positive normal to inspection, normal bowel sounds and obese Genitourinary: Positive deferred Musc Musculoskeletal: Positive steady gait; Negative using an assistive device for ambulation, kyphosis or scoliosis Skin Pulmonary Skin Exam: Positive intact; Negative lesion, rash, ulcers or erythema Pulses Pulse: Yes radial pulses present Extremities Extremities: Yes capillary refill normal, No clubbing, No cyanosis and No edema Neuro Neurologic: Yes no focal neuro deficits, Yes conversant, Yes cooperative, Yes normal cognition, Yes normal coordination, Yes normal concentration and Yes understands questions Psych Appearance: Positive grossly normal Mental Status: Positive mental status grossly normal Mood: Positive congruent mood Affect: Positive normal affect Coding Level of Care Code Off vis,est,level 5 Diagnoses Obstructive sleep apnea G47.33 Secondary pulmonary arterial hypertension I27.21 Paroxysmal A-fib I48.0 06/21/23 1048 <Electronically signed by Ernesto Webster MD> Date Ernesto Webster MD Cosigner Signature: Date (if applicable) CC: Dr. Lydia Marte, DO Lydia Marte DO Work Phone: Start: 06-17-2023 End: 06-17-2023 Cardiology Visit Report Procedure Note: See Note; NOTES: [facility] [address] [place] [address]. [address] [place] [address] OFFICE VISIT Date of Service: 06/17/23 MR#: [id number] Acct: [id number] Name: ADRIANA DILL Rep #: [id number] : 1955 Provider: STEVEN chatterjee Age/Sex: 68/F [facility] [facility] Status: Signed [facility] History of Present Illness Details: This is a 68-year-old white female who presents today for outpatient cardiovascular follow-up visit. She has a history of non-angiographically significant CAD, bicuspid aortic valve, dilated aortic root, atrial fibrillation status post post remote pulmonary vein isolation procedure, hyperlipidemia, hypertension, and obstructive sleep apnea. From a cardiac standpoint, the patient is doing well. She denies any palpitations, chest pain, pressure or heaviness. She does have SOB with exertion. She states this is worsening. She denies Orthopnea, and PND. She does not have bleeding issues; no blood in urine, stool or nosebleeds. She denies any decrease in energy level, myalgias, or claudication. She does not have edema, or sudden weight gain. She denies dizziness, lightheadedness, syncopal or near syncopal episodes, and headaches. Intake Vital Signs 11/30/22 10:36 06/17/23 10:25 06/17/23 10:26 Height 5 ft 3 in 5 ft 3 in 5 ft 3 in Weight: 229 lb 4 oz BMI 40.6 BP 124/79 H Blood Pressure Location Lt brachial Position Sitting Respiration 18 Pulse 58 L Pulse Source Monitor Pulse Oximetry (%) 95 Oxygen Delivery Method room air Intake Visit Reasons: 6 M FU Allergies No Known Allergies Allergy (Verified 06/17/23 10:24) Medications lamotrigine 200 mg tablet 200 mg PO DAILY 12/17/14 [History Confirmed 06/17/23] trazodone 100 mg tablet 200 mg PO DAILY 10/18/17 [History Confirmed 06/17/23] sertraline 100 mg tablet 100 mg PO BID 10/19/17 [History Confirmed 06/17/23] venlafaxine 37.5 mg tablet,extended release 24 hr 37.5 mg PO DAILY 10/27/18 [History Confirmed 06/17/23] multivitamin 1 tab PO DAILY 06/05/19 [History Confirmed 06/17/23] cholecalciferol (vitamin D3) 125 mcg (5,000 unit) tablet 5,000 unit PO DAILY 04/04/21 [History Confirmed 06/17/23] coenzyme Q10 200 mg capsule 200 mg PO DAILY 04/04/21 [History Confirmed 06/17/23] gemfibrozil 600 mg tablet 600 mg PO BID #180 tabs 10/05/22 [Rx Confirmed 06/17/23] apixaban 5 mg tablet (Eliquis) 5 mg PO BID #180 tabs 12/11/22 [Rx Confirmed 06/17/23] verapamil 120 mg tablet,extended release 120 mg PO BID #180 tabs 12/11/22 [Rx Confirmed 06/17/23] ezetimibe 10 mg tablet (Zetia) 10 mg PO QDAY #90 tabs 02/04/23 [Rx Confirmed 06/17/23] hydrochlorothiazide 25 mg tablet 25 mg PO QDAY #90 tabs 04/12/23 [Rx Confirmed 06/17/23] metoprolol tartrate 100 mg tablet 100 mg PO BID #180 tabs 04/12/23 [Rx Confirmed 06/17/23] potassium chloride 10 mEq tablet,extended release(part/cryst) 10 meq PO DAILY #90 tabs 04/12/23 [Rx Confirmed 06/17/23] ramipril 10 mg capsule 10 mg PO QDAY #90 caps 04/12/23 [Rx Confirmed 06/17/23] [facility] Medical History (Reviewed 06/17/23 @ 14:17 by Rachna De La Fuente FIELD SALES CONSULTANT, FIELD SALES CONSULTANT-C) Atherosclerotic heart disease of [place] coronary artery without angina pectoris Bicuspid aortic valve Bipolar disorder CAD (coronary artery disease) Essential hypertension GERD (gastroesophageal reflux disease) Hyperlipidemia Long-term use of high-risk medication Non-rheumatic aortic stenosis Non-ST elevation (NSTEMI) myocardial infarction ( 08/21/11) Obstructive sleep apnea Palpitation Persistent atrial fibrillation Secondary pulmonary arterial hypertension Surgical History (Reviewed 06/17/23 @ 14:17 by Rachna De La Fuente FIELD SALES CONSULTANT, FIELD SALES CONSULTANT-C) H/O discectomy History of maze procedure ( 10/22/04) history of pulmonary vein isolation ( 10/11/06) History of right and left heart catheterization ( 03/05/17) Family History Brother CAD (coronary artery disease) from [place] 52 Father Dementia Mother Cancer Social History (Reviewed 06/17/23 @ 14:17 by Rachna De La Fuente FIELD SALES CONSULTANT, FIELD SALES CONSULTANT-C) Smoking Status: Former smoker how long ago did patient quit smokin second hand exposure: No alcohol intake: never substance use type: does not use caffeine: No what type of physical activity do you participate in: none ROS Const Const: Negative for fatigue, weakness, fever(s), headache(s), chills, frequent falls, weight gain or weight loss Eyes Eyes: Negative for blind spots, loss of peripheral vision, transient loss of vision, blurry vision, change in vision, double vision, floaters or tunnel vision ENT ENT: Negative for headache(s), dizziness, Nosebleed/epistaxis, balance problems or neck pain Cardio Chest Pain: No Palpitations: No Edema: None Muscle aches with walking: None Resp Respiratory: Negative for SOB with activity, SOB at rest or SOB orthopnea SOB lying down GI GI: Negative nausea, vomiting, heartburn, bloating, vomiting blood/hematemesis, bright, red blood in stools or black,tarry stools Musc Musc: Negative for muscle aches/ myalgia, muscle weakness, joint pain or balance problems Neuro Neuro: Negative for dizziness, lightheadedness, near syncope, syncope, orthostatic symptoms, frequent falls, headache(s), weakness, blurry vision or double vision Glenn Hematologic/Lymphatic: Negative for easy bleeding or easy bruising Endo Endo: Negative for fatigue Cardiology Exam Const Appearance: cooperative, healthy appearing, comfortable, no acute distress, well developed and well groomed Nutritional Appearance: obese Orientation: alert, awake and oriented x3 Head Head: normal to inspection, normocephalic and atraumatic Ears: hearing grossly normal bilaterally Nose: external nose normal Face and Sinus: face symmetric Eyes Eyelids: eyelids normal Conjunctivae: conjunctivae normal Pupils: PERRL and pupil size EOM: EOM intact bilaterally Neck Neck: normal visual inspection and full ROM Carotids: normal carotid upstroke; Negative bruit Chest Chest inspection: normal inspection of the chest, symmetric chest movement and normal respiratory effort Auscultation: Bilateral: Clear to Auscultation Cardio Palpation: normal PMI Rate: regular rate Rhythm: regular rhythm Heart sounds: S1 normal, S2 normal and murmur; Negative rub or gallop Murmur: Grade 3/6, harsh, mid systolic, LLSB, LVOT and sternal notch GI GI: normal to inspection, soft, bowel sounds present and obese Neuro General: patient alert, patient awake, patient oriented x3, gait normal and moves all extremities Skin Skin: no rashes or lesions noted Extremities Pulses: Normal: Right Posterior Tibial Pulse, Left Posterior Tibial Pulse, Right Radial Pulse and Left Radial Pulse Lower Extremity Edema: None: Bilateral Psych Psychological: normal affect Supplemental Info Supplemental Information Echocardiogram: 02-15-2020 Interpretation Summary The estimated ejection fraction is 65 %. Stage 1 diastolic dysfunction. Mild (1+) tricuspid valve insufficiency. Right ventricular systolic pressure estimated to be 42 mmHg. Mild pulmonary hypertension. There is fusion between the right and left coronary cusps, making this a functionally bicuspid aortic valve. Peak aortic valve gradient 28 mmHg. Mean aortic valve gradient 17 mmHg. Calculated aortic valve area (continuity equation) is 1.5 cm2. Moderate aortic stenosis. Bicuspid aortic valve. Compared to echo report dated 10/26/2018, LV function has remained the same, RVSP has increased from 31 to 42 mmHg. Aortic valve gradient has remained about the same. ECHOCARIOGRAM 11/12/21 Interpretation Summary Left ventricular systolic function is normal. The estimated ejection fraction is 60 %. The left atrium is mildly enlarged. There is mild mitral annular calcification. Extension of the mitral annular calcification on the base of the posterior mitral valve leaflet. Mild (1+) mitral valve insufficiency. Mild tricuspid valve insufficiency. Based upon the 2D echocardiographic images obtained there appears to be diffuse thickening, calcification, and restriction, of the aortic valve cusps and the appearance of fusion of the right and left coronary cusps, thus, resulting in a functionally bicuspid appearing aortic valve. Moderate aortic stenosis. Mild (1+) pulmonic valve insufficiency. Mildly dilated aortic root. Right ventricular systolic pressure estimated to be 54 mmHg. Transmitral diastolic flow velocities suggest diastolic dysfunction (pseudonormal pattern). ? Labs: LDL Cholesterol 79 mg/dL (0-130) HDL Cholesterol 51 mg/dL (40-) Cholesterol 151 mg/dL (200) Triglycerides 107 mg/dL (-199) Diagnostics: Echocardiogram Chest X-Ray Abdomen/Pelvis CT Pulmonary: Pulmonary Function Test Pulmonary Exercise Test Past Visits: Cardiology Visit 06/17/23 Assessment and Plan Assessment and Plan (1) Non-rheumatic aortic stenosis: Status: Chronic Plan: Patient has a history of non-rheumatic aortic valve stenosis. Her echocardiogram from 12/08/2022 demonstrated an ejection fraction of 60%, and moderate aortic stenosis. This was reviewed with patient. We will obtain a echocardiogram in 6 months, to reassess this. Depending on results, further recommendations will be made. (2) Bicuspid aortic valve: Status: Chronic Plan: She does have a report of a bicuspid aortic valve with associated aortic root dilatation. Her most recent echocardiogram from 12/08/2022 demonstrated a trileaflet aortic valve with mildly dilated aortic root, measuring 4.3cm. We will obtain an echocardiogram in 6 months to reassess this. Depending on results, further recommendations will be made. (3) CAD (coronary artery disease): Status: Inactive Plan: Patient has a history of coronary artery disease. At this time, she will continue with her current medical therapy, along with aggressive risk factor and lifestyle modifications. She will continue to monitor for any concerning symptoms. (4) Persistent atrial fibrillation: Status: Chronic Plan: Patient has a history of persistent atrial fibrillation. She appears to be in a normal rhythm on exam today. Her heart rate is well controlled at this time. She will continue with her current medical therapy, along with monitoring for any concerning symptoms. (5) History of maze procedure: Status: Resolved Comment: 10/22/2004 at [facility] Plan: Patient underwent Maze procedure in 2004. She appears to be in a normal rhythm on exam. She will continue with her current medical therapy, along with monitoring for any concerning symptoms. (6) Hyperlipidemia: Status: Chronic Plan: Patient has a history of hyperlipidemia. Her lipid panel from 06/17/2023: cholesterol 151, HDL 51, LDL 79, triglycerides 107. She will continue zetia 10mg daily, and gemfibrozil 600mg twice daily, along with aggressive risk factor and lifestyle modifications. (7) Essential hypertension: Status: Chronic Plan: Patient has a history of hypertension. Her blood pressure is well controlled at this time. She will continue with her current medical therapy, along with monitoring her blood pressures at home. She will notify our office of any persistently elevated or low blood pressure readings. (8) FERNANDO (dyspnea on exertion): Status: Acute Plan: Patient acknowledges dyspnea on exertion. We will obtain lab work to further assess this. Depending on results, further recommendations will be made. She does state she has an upcoming appointment with pulmonology. Orders: Orders Echo Complete 6 Months I35.0 - Nonrheumatic aortic (valve) stenosis Basic Metabolic Profile (BMP) Today R06.09 - Other forms of dyspnea BNP,B-Type NATRIURETIC PEPTIDE Today R06.09 - Other forms of dyspnea CBC W/Diff, Automated Today R06.09 - Other forms of dyspnea Plan Details Additional Comments: Patient will follow up in 6 months, or sooner if needed. Thank you for allowing me to participate in the care of your patient. Please don't hesitate to call if any issues arise. This note was generated using a voice recognition system and there may be incorrect words, spelling, or punctuation that were not noted when reviewing the office note prior to saving. Portions of this documentation were copied and pasted from previous office visit notes to provide a cohesive continuity of the history. The note has been reviewed, edited, and updated, as necessary. Follow Up: 6 Months ([employer]ANT/PA) Coding Level of Care Code Off vis,est,level 4 Diagnoses Non-rheumatic aortic stenosis I35.0 Bicuspid aortic valve Q23.1 CAD (coronary artery disease) I25.10 Persistent atrial fibrillation I48.1 History of maze procedure Z98.890 Hyperlipidemia E78.5 Essential hypertension I10 FERNANDO (dyspnea on exertion) R06.09 Coding Level of Care Code Off vis,est,level 4 Diagnoses Non-rheumatic aortic stenosis I35.0 Bicuspid aortic valve Q23.1 CAD (coronary artery disease) I25.10 Persistent atrial fibrillation I48.1 History of maze procedure Z98.890 Hyperlipidemia E78.5 Essential hypertension I10 FERNANDO (dyspnea on exertion) R06.09 06/17/23 1442 <Electronically signed by Rachna HARRIS> Date Rachna PRATHERC Cosigner Signature: Date (if applicable) CC: Lydia Marte DO Work Phone: Start: 12-08-2022 End: 12-09-2022 Echo Complete Procedure Note: See Note; NOTES: [facility] [address] [place] [address] Echo Complete 12/08/22 0809 MR#: [id number] Acct: [id number] Name: ADRIANA DILL Rep #: [id number] : 1955 67 From: Elvin Antonio MD Attending Dr: Dr. Ralph Mg MD Status: RE G [facility] Ordering Dr: Ralph Mg MD Date: 12/08/22 Location: [facility] Sex: F C Admitted: Reason For Study: AFIB AV STENOSIS Procedure This was a 2D Doppler, Color Flow transthoracic echocardiogram. Exam performed in department. Left Ventricle Normal size and thickness. The left ventricular ejection fraction is 60 %. Normal diastology for age. Right Ventricle Normal right ventricle. Atria The left atrium is mildly enlarged. Normal right atrium. Mitral Valve Mild diffuse mitral valve calcification. Trivial mitral valve insufficiency. Tricuspid Valve Mild tricuspid valve insufficiency. Pulmonary artery systolic pressure is 35 mmHg. Aortic Valve Trisinus/trileaflet aortic valve. Moderate diffuse aortic valve calcification. Moderate aortic stenosis. Pulmonic Valve The pulmonic valve is not well visualized. Mild (1+) pulmonic valve insufficiency. Great Vessels Mild to moderately dilated aortic root. Pericardium/Pleural No pericardial effusion. MMode/2D Measurements Calculations LVIDd: 4.0 cm IVSd: 1.1 cm LVOT diam: 2.1 cm LVIDs: 2.8 cm LVPWd: 1.1 cm LVOT area: 3.4 cm2 FS: 30.7 % Ao root diam: 4.3 cm LAV(MOD-bp): 89.4 ml LA A4 area: 23.7 cm2 LAV(MOD-bp) Indexed: 44.0 ml/m2 LAV(MOD-sp2): 73.6 ml LAV(MOD-sp4): 89.2 ml LA dimension(2D): 4.0 cm RA A4 area: 13.8 cm2 Time Measurements MV dec time: 0.23 sec Doppler Measurements Calculations MV E max brina: 89.1 cm/sec Lat Peak E' Brina: 13.4 cm/sec Med Peak E' Brina: 8.3 cm/sec MV A max brina: 43.5 cm/sec E/E' lat: 6.7 E/E' med: 10.7 MV E/A: 2.0 MV dec slope: 385.3 cm/sec2 Ao V2 max: 341.0 cm/sec LV V1 max: 99.4 cm/sec Ao max P.3 mmHg LV V1 max P.0 mmHg Ao V2 mean: 249.4 cm/sec LV V1 mean P.5 mmHg Ao mean P.0 mmHg LV V1 mean: 75.8 cm/sec Ao V2 VTI: 86.4 cm LV V1 VTI: 26.1 cm AV (velocity ratio): 0.30 CELESTE(I,D): 1.0 cm2 CELESTE(V,D): 1.0 cm2 SV(LVOT): 89.8 ml PA V2 max: 130.2 cm/sec TR max brina: 273.7 cm/sec TR max P.0 mmHg ECHO/Echo Complete Interpretation Summary The left ventricular ejection fraction is 60 %. The left atrium is mildly enlarged. Mild tricuspid valve insufficiency. Moderate aortic stenosis. Mild (1+) pulmonic valve insufficiency. Mild to moderately dilated aortic root. Ordering Physician: Ralph Mg Referring Physician: Lydia Marte Performed By: Charlene Banks, RDCS, RVT 12/09/22 0900 Date Elvin Antonio MD CC: Dr. Lydia Marte DO; Dr. Ralph Mg MD Date Dictated: 12/08/22 0809 Date Transcribed: 12/09/22899 Hand Hardener: Signed Lydia aMrte DO Work Phone: Start: 11-30-2022 End: 11-30-2022 Cardiology Visit Report Procedure Note: See Note; NOTES: [facility] [address] [place] [address] OFFICE VISIT Date of Service: 11/30/22 MR#: [id number] Acct: [id number] Name: ADRIANA DILL Rep #: [id number] : 1955 Provider: Dr. Ralph horowitz MD Age/Sex: 67/F Location: [facility] [place] Status: Signed HPI [facility] History of Present Illness Details: This is a 67-year-old white female who presents today for outpatient cardiovascular follow-up with a history of nonangiographically significant CAD, bicuspid aortic valve, dilated aortic root, atrial fibrillation status post post remote pulmonary vein isolation procedure, hyperlipidemia, hypertension, and obstructive sleep apnea. The patient denies symptoms considered classic for angina pectoris, CHF / pulmonary edema (with respect to orthopnea / PND), ongoing palpitations, or near syncope / syncope. The patient denies ongoing peripheral pitting edema. She admits she has not had her lipid labs checked for approximately a year. Her last transthoracic echocardiogram was in October 2021. The results have been reviewed with her. She states she has not required any other cardiovascular studies since that time. Intake Vital Signs 10/08/21 08:19 07/06/22 07:47 11/30/22 10:33 11/30/22 10:36 Height 5 ft 3 in 5 ft 3 in 5 ft 3 in 5 ft 3 in Weight: 222 lb 2 oz 224 lb BMI 39.3 39.6 BP 118/78 116/74 Blood Pressure Location Lt brachial Lt brachial Position Sitting Sitting Respiration 16 16 Pulse 66 68 Pulse Source Monitor Auscultation Temp 98.2 F Temperature Source Temporal Artery Pulse Oximetry (%) 95 Oxygen Delivery Method room air Intake Visit Reasons: 1 Y FU Space Controller Required: No Accompanied by: Self Allergies No Known Allergies Allergy (Verified 11/30/22 10:36) Medications lamotrigine 200 mg tablet 200 mg PO DAILY 12/17/14 [History Confirmed 11/30/22] trazodone 100 mg tablet 200 mg PO DAILY 10/18/17 [History Confirmed 11/30/22] sertraline 100 mg tablet 100 mg PO BID 10/19/17 [History Confirmed 11/30/22] venlafaxine 37.5 mg tablet,extended release 24 hr 37.5 mg PO DAILY 10/27/18 [History Confirmed 11/30/22] multivitamin 1 tab PO DAILY 06/05/19 [History Confirmed 11/30/22] cholecalciferol (vitamin D3) 125 mcg (5,000 unit) tablet 5,000 unit PO DAILY 04/04/21 [History Confirmed 11/30/22] coenzyme Q10 200 mg capsule 200 mg PO DAILY 04/04/21 [History Confirmed 11/30/22] ezetimibe 10 mg tablet (Zetia) 10 mg PO QDAY #90 tabs 02/09/22 [Rx Confirmed 11/30/22] hydrochlorothiazide 25 mg tablet 25 mg PO QDAY #90 tabs 04/13/22 [Rx Confirmed 11/30/22] metoprolol tartrate 100 mg tablet 100 mg PO BID #180 tabs 04/13/22 [Rx Confirmed 11/30/22] potassium chloride 10 mEq tablet,extended release(part/cryst) 10 meq PO DAILY #90 tabs 04/13/22 [Rx Confirmed 11/30/22] ramipril 10 mg capsule 10 mg PO QDAY #90 caps 05/04/22 [Rx Confirmed 11/30/22] apixaban 5 mg tablet (Eliquis) 5 mg PO BID #180 tabs 06/02/22 [Rx Confirmed 11/30/22] gemfibrozil 600 mg tablet 600 mg PO BID #180 tabs 10/05/22 [Rx Confirmed 11/30/22] verapamil 120 mg tablet,extended release 120 mg PO BID #180 tabs 10/05/22 [Rx Confirmed 11/30/22] PFSH Medical History Atherosclerotic heart disease of [place] coronary artery without angina pectoris Bicuspid aortic valve Bipolar disorder CAD (coronary artery disease) Essential hypertension GERD (gastroesophageal reflux disease) Hyperlipidemia Long-term use of high-risk medication Non-rheumatic aortic stenosis Non-ST elevation (NSTEMI) myocardial infarction ( 08/21/11) Obstructive sleep apnea Palpitation Persistent atrial fibrillation Secondary pulmonary arterial hypertension Surgical History H/O discectomy History of maze procedure ( 10/22/04) history of pulmonary vein isolation ( 10/11/06) History of right and left heart catheterization ( 03/05/17) Family History Brother CAD (coronary artery disease) from [place] 52 Father Dementia Mother Cancer Social History Smoking Status: Former smoker how long ago did patient quit smokin second hand exposure: No alcohol intake: never substance use type: does not use caffeine: No what type of physical activity do you participate in: none ROS Const Const: Positive for fatigue (increrased); Negative for weakness, body ache, fever(s), headache(s), chills, frequent falls, night sweats, daytime sleepiness, difficulty sleeping, excessive sweating, weight gain, weight loss, increased appetite, poor appetite, anorexia or other Eyes Eyes: Negative for blurry vision or double vision ENT ENT: Positive for balance problems (slight); Negative for headache(s) or dizziness Cardio Chest Pain: No Palpitations: Yes (Rare) feels like its: irregular Edema: None Muscle aches with walking: None Resp Respiratory: Positive for SOB with activity (increased) and Cough (occasional productive); Negative for SOB at rest, SOB orthopnea SOB lying down, Coughing up blood/hemoptysis, chest congestion, pain on inspiration, snoring, stridor, wheezing, crackles, paroxysmal nocturnal dyspnea or other Musc Musc: Positive for balance problems (slight); Negative for muscle aches/ myalgia, muscle weakness or joint pain Neuro Neuro: Negative for dizziness, lightheadedness, near syncope, syncope, orthostatic symptoms, frequent falls, headache(s), weakness, confusion, memory loss, restless legs, blurry vision, double vision, vertigo, seizures, lack of coordination or other Endo Endo: Positive for fatigue (increrased); Negative for excessive sweating Cardiology Exam Const Appearance: cooperative, healthy appearing, comfortable, no acute distress, well developed and well groomed Nutritional Appearance: obese Orientation: alert, awake and oriented x3 Head Head: normal to inspection, normocephalic and atraumatic Ears: hearing grossly normal bilaterally Nose: external nose normal Face and Sinus: face symmetric Eyes Eyelids: eyelids normal Conjunctivae: conjunctivae normal Pupils: PERRL and pupil size EOM: EOM intact bilaterally Neck Neck: normal visual inspection and full ROM Carotids: normal carotid upstroke; Negative bruit Chest Chest inspection: normal inspection of the chest, symmetric chest movement and normal respiratory effort Auscultation: Bilateral: Clear to Auscultation Cardio Palpation: normal PMI Rate: regular rate Rhythm: regular rhythm Heart sounds: S1 normal, S2 normal and murmur; Negative rub or gallop Murmur: Grade 3/6, harsh, mid systolic, LLSB, LVOT and sternal notch GI GI: normal to inspection, soft, bowel sounds present and obese Neuro General: patient alert, patient awake, patient oriented x3, gait normal and moves all extremities Skin Skin: no rashes or lesions noted Extremities Pulses: Normal: Right Posterior Tibial Pulse, Left Posterior Tibial Pulse, Right Radial Pulse and Left Radial Pulse Lower Extremity Edema: None: Bilateral Psych Psychological: normal affect Supplemental Info Supplemental Information Echocardiogram: 02-15-2020 Interpretation Summary The estimated ejection fraction is 65 %. Stage 1 diastolic dysfunction. Mild (1+) tricuspid valve insufficiency. Right ventricular systolic pressure estimated to be 42 mmHg. Mild pulmonary hypertension. There is fusion between the right and left coronary cusps, making this a functionally bicuspid aortic valve. Peak aortic valve gradient 28 mmHg. Mean aortic valve gradient 17 mmHg. Calculated aortic valve area (continuity equation) is 1.5 cm2. Moderate aortic stenosis. Bicuspid aortic valve. Compared to echo report dated 10/26/2018, LV function has remained the same, RVSP has increased from 31 to 42 mmHg. Aortic valve gradient has remained about the same. ECHOCARIOGRAM 11/12/21 Interpretation Summary Left ventricular systolic function is normal. The estimated ejection fraction is 60 %. The left atrium is mildly enlarged. There is mild mitral annular calcification. Extension of the mitral annular calcification on the base of the posterior mitral valve leaflet. Mild (1+) mitral valve insufficiency. Mild tricuspid valve insufficiency. Based upon the 2D echocardiographic images obtained there appears to be diffuse thickening, calcification, and restriction, of the aortic valve cusps and the appearance of fusion of the right and left coronary cusps, thus, resulting in a functionally bicuspid appearing aortic valve. Moderate aortic stenosis. Mild (1+) pulmonic valve insufficiency. Mildly dilated aortic root. Right ventricular systolic pressure estimated to be 54 mmHg. Transmitral diastolic flow velocities suggest diastolic dysfunction (pseudonormal pattern). ? Labs: LDL Cholesterol 90 mg/dL (0-130) HDL Cholesterol 59 mg/dL (40-) Total Cholesterol 207 mg/dL (100-199) H Triglycerides 66 mg/dL (-199) INR 1.4 Diagnostics: Echocardiogram Chest X-Ray Abdomen/Pelvis CT Pulmonary: Pulmonary Function Test Pulmonary Exercise Test Past Visits: No Data to Display Assessment and Plan Assessment and Plan (1) CAD (coronary artery disease): Status: Inactive Plan: At the present time she will continue risk factor modification medical therapy as tolerated. This will include a future fasting lipid profile. In the interim she will continue her medical therapy. This does include agents such as her metoprolol 100 mg p.o. twice daily, ramipril 10 mg p.o. daily, Zetia 10 mg p.o. daily, and her gemfibrozil 600 mg p.o. twice daily. (2) Bicuspid aortic valve: Status: Chronic Plan: She does have a report of a bicuspid aortic valve with associated aortic root dilatation. Her previous noninvasive studies were reviewed. Her previous invasive studies were reviewed as well. She will have a follow-up echocardiogram to monitor her aortic valve/root. (3) Persistent atrial fibrillation: Status: Chronic Plan: She has a history of atrial fibrillation. At the moment she remains in a regular rhythm. She will continue her current medical therapy which does include her rate limiting medicines with a combination of her metoprolol tartrate 100 mg p.o. twice daily and her verapamil SR 120 mg p.o. twice daily anticoagulant therapy of apixaban 5 mg p.o. twice daily. (4) History of maze procedure: Status: Resolved Comment: 10/22/2004 at [facility] Plan: She has undergone previous pulmonary vein isolation procedure as noted. Again at the moment she appears to remain in a regular rhythm. She will continue her current medical therapy as noted above and follow-up. (5) Hyperlipidemia: Status: Chronic Plan: She will be asked to have future fasting lipid hepatic profile. In the interim she will continue her lipid-lowering therapy as described above. (6) Essential hypertension: Status: Chronic Plan: Her blood pressure appears to be well controlled this time. She will continue medical therapy as noted above. Orders: Orders Lipid Profile 1 Day E78.00 - Pure hypercholesterolemia, unspecified, E78.5 - Hyperlipidemia, unspecified, I10 - Essential (primary) hypertension, I48.1 - Persistent atrial fibrillation, Q23.1 - Congenital insufficiency of aortic valve, Z98.890 - Other specified postprocedural states Liver Profile 1 Day E78.00 - Pure hypercholesterolemia, unspecified, E78.5 - Hyperlipidemia, unspecified, I10 - Essential (primary) hypertension, I48.1 - Persistent atrial fibrillation, Q23.1 - Congenital insufficiency of aortic valve, Z98.890 - Other specified postprocedural states Echo Complete Today E78.5 - Hyperlipidemia, unspecified, I10 - Essential (primary) hypertension, I35.0 - Nonrheumatic aortic (valve) stenosis, I48.1 - Persistent atrial fibrillation, Q23.1 - Congenital insufficiency of aortic valve, Z98.890 - Other specified postprocedural states Plan Details Additional Comments: The above was discussed with her and she was agreeable to this approach Thank you for allowing me to participate in the care of your patient. Please don't hesitate to call if any issues arise. This note was generated using a voice recognition system and there may be incorrect words, spelling or punctuation that were not noted when reviewing the office note prior to saving. Follow Up: 6 Months (PFM) COVID (Procedure Consent) Procedure Criteria Procedure Criteria: Yes Elective The surgeon/proceduralist and patient have discussed in detail the risk of exposure to and/or potential harm posed by the COVID-19 virus with having a surgery/procedure at this time versus the risk of??? delaying the surgery/procedure. It is not possible to know either the risk of delaying the surgery or procedure or chance of getting an infection with perfect accuracy, but a joint decision was made between the patient and the surgeon/proceduralist ???to proceed at this time with the scheduled surgery/procedure as indicated on the consent form. Coding Level of Care Code Off vis,est,level 4 Diagnoses CAD (coronary artery disease) I25.10 Bicuspid aortic valve Q23.1 Persistent atrial fibrillation I48.1 History of maze procedure Z98.890 Hyperlipidemia E78.5 Essential hypertension I10 Time Spent (min) 37 Coding Level of Care Code Off vis,est,level 4 Diagnoses CAD (coronary artery disease) I25.10 Bicuspid aortic valve Q23.1 Persistent atrial fibrillation I48.1 History of maze procedure Z98.890 Hyperlipidemia E78.5 Essential hypertension I10 Time Spent (min) 37 11/30/22 1123 <Electronically signed by Ralph Mg MD> Date Ralph Mg MD Cosigner Signature: Date (if applicable) CC: Dr. Lydia Marte, DO Lydia Mrate DO Work Phone: Start: 07-06-2022 End: 07-06-2022 Pulmonary Visit Report Procedure Note: See Note; NOTES: [facility] [place] [address] [place] [address] OFFICE VISIT Date of Service: 07/06/22 MR#: [id number] Acct: [id number] Name: ADRIANA DILL Rep #: [id number] : 1955 Provider: Dr. Ernesto Webster MD Age/Sex: 67/F Location: [facility] [place] Status: Signed Assessment and Plan Assessment and Plan (1) Obstructive sleep apnea: Status: Chronic Comment: BiPAP 16/12 centimeters of water with residual AHI of 5.9 (2) Secondary pulmonary arterial hypertension: Status: Chronic (3) Paroxysmal A-fib: Status: Acute Comment: In NSR 06/2022 Orders: Orders Influenza Immunization Today Z23 - Encounter for immunization Plan Patient appears to be doing well from an MEGHAN standpoint. There is no indication for a titration study at this time. Did discuss the role of weight loss and the overall disease plan of care. Patient voiced understanding. Given stability, will continue with 1 year follow-ups. Patient was educated on reasons to call in the interim. Will obtain intermittent walking oximetries at home. Formal testing if needed. Continue current therapy. HPI 6 M FU Details: Patient is a 67-year-old female, currently under the care of Dr. Marte who presents for evaluation secondary to obstructive sleep apnea. Since last visit, patient denies any ER visits, hospitalizations or prednisone burst. Patient does report multiple UTIs recently and is planning a workup. Patient overall feels subjectively unchanged compared to previous. Patient has been doing well from an MEGHAN standpoint. Patient currently uses a fullface interface. Patient denies any pain at the interface site, epistaxis or hoarseness. Patient denies any morning headache. Patient denies dry mouth in the morning. Patient wakes up feeling refreshed and takes naps rarely. Patient does not typically use their Pap machine with these naps. Patient has no respiratory complaints at this time. Patient has not had any change in exercise tolerance. Patient is not reporting any nocturnal cough. Patient has no constitutional symptoms such as fever, chills, nausea or vomiting. No lower extremity edema has been reported. Review of systems otherwise negative from a constitutional, HEENT, respiratory, cardiovascular, GI, genitourinary, musculoskeletal, skin, neurologic, psychiatric and hematologic system unless stated above. Documentation personally reviewed with the patient Compliance report (June 2022): The patient was compliant 80% of the time for an average use of 6 hours 8 minutes on BiPAP 16/12 centimeters of water with a residual AHI of 5.9 and well-controlled leak. Intake Vital Signs 07/06/22 06:57 07/06/22 07:47 Height 5 ft 3 in 5 ft 3 in Weight: 222 lb 2 oz BMI 39.3 BP 118/78 Blood Pressure Location Lt brachial Position Sitting Respiration 16 Pulse 66 Pulse Source Monitor Temp 98.2 F Temperature Source Temporal Artery Pulse Oximetry (%) 95 Oxygen Delivery Method room air Intake Visit Reasons: 6 M FU DASH Vendor: KEVIN Allergies No Known Allergies Allergy (Verified 07/06/22 07:48) Medications lamotrigine 200 mg tablet 200 mg PO DAILY 12/17/14 [History Confirmed 07/06/22] trazodone 100 mg tablet 200 mg PO DAILY 10/18/17 [History Confirmed 07/06/22] sertraline 100 mg tablet 100 mg PO BID 10/19/17 [History Confirmed 07/06/22] venlafaxine 37.5 mg tablet,extended release 24 hr 37.5 mg PO DAILY 10/27/18 [History Confirmed 07/06/22] multivitamin 1 tab PO DAILY 06/05/19 [History Confirmed 07/06/22] cholecalciferol (vitamin D3) 125 mcg (5,000 unit) tablet 5,000 unit PO DAILY 04/04/21 [History Confirmed 07/06/22] coenzyme Q10 200 mg capsule 200 mg PO DAILY 04/04/21 [History Confirmed 07/06/22] gemfibrozil 600 mg tablet 600 mg PO BID #180 tabs 07/14/21 [Rx Confirmed 07/06/22] verapamil 120 mg tablet,extended release 120 mg PO BID #180 tabs 12/10/21 [Rx Confirmed 07/06/22] ezetimibe 10 mg tablet (Zetia) 10 mg PO QDAY #90 tabs 02/09/22 [Rx Confirmed 07/06/22] hydrochlorothiazide 25 mg tablet 25 mg PO QDAY #90 tabs 04/13/22 [Rx Confirmed 07/06/22] metoprolol tartrate 100 mg tablet 100 mg PO BID #180 tabs 04/13/22 [Rx Confirmed 07/06/22] potassium chloride 10 mEq tablet,extended release(part/cryst) 10 meq PO DAILY #90 tabs 04/13/22 [Rx Confirmed 07/06/22] ramipril 10 mg capsule 10 mg PO QDAY #90 caps 05/04/22 [Rx Confirmed 07/06/22] apixaban 5 mg tablet (Eliquis) 5 mg PO BID #180 tabs 06/02/22 [Rx Confirmed 07/06/22] [facility] Medical History Bicuspid aortic valve Bipolar disorder CAD (coronary artery disease) Essential hypertension GERD (gastroesophageal reflux disease) Hyperlipidemia Long-term use of high-risk medication Non-rheumatic aortic stenosis Non-ST elevation (NSTEMI) myocardial infarction ( 08/21/11) Obstructive sleep apnea Palpitation Persistent atrial fibrillation Secondary pulmonary arterial hypertension Surgical History H/O discectomy History of maze procedure ( 10/22/04) history of pulmonary vein isolation ( 10/11/06) History of right and left heart catheterization ( 03/05/17) Family History Brother CAD (coronary artery disease) from [place] 52 Father Dementia Mother Cancer Social History Smoking Status: Former smoker how long ago did patient quit smokin second hand exposure: No alcohol intake: never substance use type: does not use caffeine: No what type of physical activity do you participate in: none Exam Const Constitutional: Positive conversant, cooperative, in no acute respiratory distress, healthy appearing, well developed, well nourished and good hygiene Head Head: Yes normocephalic, Yes atraumatic and No cyanosis of lips/distal nose Eyes Eye: Positive clear conjunctiva; Negative nystagmus, scleral abnormality or cataract present Ears Ear: Positive hearing normal and external ears normal; Negative hard of hearing Nose Nose: Yes other (face mask in place) Neck Neck: Positive normal visual inspection, full ROM and trachea midline Chest Wall Chest: Positive normal inspection of the chest and symmetric chest movement Resp lung sounds: Positive clear to auscultation, good air exchange and normal expiratory time; Negative wheezes, wheeze present on forced exhalation, rhonchi, rales, dullness or use of accessory muscles Cardio Cardiac: Positive regular rate, regular rhythm, S1 normal and S2 normal; Negative murmur, rub or gallop GI GI: Positive normal to inspection and normal bowel sounds Genitourinary: Positive deferred Musc Musculoskeletal: Positive steady gait; Negative using an assistive device for ambulation, kyphosis or scoliosis Skin Pulmonary Skin Exam: Positive intact; Negative lesion, rash, ulcers or erythema Pulses Pulse: Yes radial pulses present Extremities Extremities: Yes capillary refill normal, No clubbing, No cyanosis and No edema Neuro Neurologic: Yes no focal neuro deficits, Yes conversant, Yes cooperative, Yes normal cognition, Yes normal coordination, Yes normal concentration and Yes understands questions Psych Appearance: Positive grossly normal Mental Status: Positive mental status grossly normal Mood: Positive congruent mood Affect: Positive normal affect Immunizations Fluad Quad (65y up)(PF) 60 mcg (15 mcg x 4)/0.5 mL Performing Provider: Ernesto Webster MD Administered by: Jenny Simon on 07/06/22 08:14 Dose Route Admin Location Lot Number Expiration Date [facility] Manufactu rer 60 mcg IM Left Deltoid [id number] 01/08/23 [id number] [employer] VIS Given Date VIS Provided VIS Publication Date 07/06/22 Single Vaccine 21 Eligibility Eligibility Date Funding Source None Coding Level of Care Code Off vis,est,level 3 Diagnoses Obstructive sleep apnea G47.33 Secondary pulmonary arterial hypertension I27.21 Paroxysmal A-fib I48.0 07/06/22 0845 <Electronically signed by Ernesto Webster MD> Date Ernesto Webster MD Cosigner Signature: Date (if applicable) CC: Lydia Marte DO Work Phone: Start: 05-13-2022 End: 05-13-2022 Abdomen/Pelvis without Cont Procedure Note: See Note; NOTES: [facility] Imaging Services [address] [place] [address] Abdomen/Pelvis without Cont MR#: [id number] Acct: [id number] Name: ADRIANA DILL Rep #: [id number] : 1955 F 67 From: Daryn jennings MD PCP: Dr. Lydia Marte, DO Status: REG CLI Study: Abdomen/Pelvis without Cont Date of Exam: 04/21 01/09 Exam# [id number] Ordering Dr: Nida Amos MD STUDY: CT ABDOMEN AND PELVIS WITHOUT CONTRAST REASON FOR EXAM: Female, 67 years old. LEFT RENAL STONE UTI. Three-week history of hematuria. RADIATION DOSAGE (If Supplied By Facility): CTDIvol = ( 22.55 ) mGy, DLP = ( 1211.51 ) mGycm TECHNIQUE: Transaxial images were obtained from the dome of the diaphragm to the symphysis pubis without oral contrast, and without intravenous contrast. Sagittal and coronal images were reconstructed. Individualized dose optimization techniques were used for this CT. COMPARISON: None. FINDINGS: Small calcifications in the right breast. The visualized lung bases are unremarkable. Coronary artery calcification. Normal liver. Normal gallbladder and extrahepatic biliary system. Normal spleen. Normal pancreas. Normal bilateral adrenal glands. There is a 5.2 cm x 5 cm cyst in the upper midpole region of the right kidney. There is also evidence of a 1.8 cm x 1.3 cm cyst in the mid medial aspect of the right kidney. 2 mm nonobstructive calculus in the lower pole calyx of the right kidney. 1.2 cm cyst in the posterior aspect of the midportion of the left kidney. Normal visualized stomach. Normal small intestine. There are multiple colonic diverticula consistent with diverticulosis. The patient is status post appendectomy. There is diffuse atherosclerotic calcification of the abdominal aorta, without a demonstrated aneurysm. Normal inferior vena cava. Normal retroperitoneum. Normal urinary bladder. Normal abdominal wall. There are degenerative changes of the visualized lumbar spine. CT/Abdomen/Pelvis without Cont IMPRESSION: Bilateral renal cysts more prominent on the right side. Small nonobstructive calculus in the lower pole calyx of the right kidney. Electronically Signed: Daryn Phelan MD at 15:09 EDT , CC: Dr. Nida Amos MD; Dr. Lydia Marte DO Hand Hardener: Signed Nida Amos Work Phone: Start: 04-15-2022 End: 04-16-2022 Kidney and Bladder Comments: See Note; NOTES: [facility] Imaging Services [address] [place] [address] Kidney and Bladder MR#: [id number] Acct: [id number] Name: ADRIANA DILL Rep #: [id number] : 1955 F 67 From: Roselia Addison PCP: Dr. Lydia Marte DO Status: REG CLI Study: Kidney and Bladder Date of Exam: 04/15/22 Exam# [id number] Ordering Dr: Thania Contreras FIELD SALES CONSULTANT-C STUDY: RENAL ULTRASOUND - COMPLETE REASON FOR EXAM: Female, 67 years old. HEMATURIA TECHNIQUE: Ultrasound evaluation of the kidneys was performed with real-time and static de oliveira-scale imaging. COMPARISON: None. FINDINGS: RIGHT KIDNEY: Length: 10.2 cm. Parenchyma: 5.9 x 5.2 x 5.9 cm cyst in the upper pole. Hydronephrosis: None. LEFT KIDNEY: Length: 11.9 cm. Parenchyma: 0.7 cm echogenic focus in the lower pole likely a calculus. 2 small cysts: 1.2 x 0.9 x 1.1 cm, and 1.4 x 1 x 1.2 cm. Hydronephrosis: None. BLADDER: Not distended which precludes evaluation. Bladder volume 11 mL. Ureteral jets were not visualized. US/Kidney and Bladder IMPRESSION: Bilateral renal cysts. Left intrarenal calculus. No hydronephrosis. Empty bladder. Electronically Signed: Roselia Philippe MD at 7:52 EDT , CC: STEVEN Contreras; Dr. Lydia Marte DO Hand Hardener: Signed Lydia Marte DO Work Phone: Start: 01-07-2022 End: 01-07-2022 Pulmonary Visit Report Comments: See Note; NOTES: [facility] [place] [address] [place] [address] OFFICE VISIT Date of Service: 01/07/22 MR#: [id number] Acct: [id number] Name: ADRIANA DILL Rep #: [id number] : 1955 Provider: STEVEN Banks Age/Sex: 66/F Location: [facility] [place] Status: Signed Assessment and Plan Assessment and Plan (1) Obstructive sleep apnea: Status: Chronic Comment: BiPAP 16/12 centimeters of water with residual AHI of 6.5 Thony Banks FIELD SALES CONSULTANT, FIELD SALES CONSULTANT-C: Patient is using and benefiting from Pap therapy. No indication for titration study at this time. Continue to encourage weight loss. Contact the office for any new or worsening symptoms in the meantime. Follow-up in [address] Webster. (2) Secondary pulmonary arterial hypertension: Status: Chronic Thony - Yuni Banks FIELD SALES CONSULTANT, FIELD SALES CONSULTANT-C: Shortness of breath is stable. Most recent walking oximetry ruled out exertional hypoxia. The patient continues to check her oxygen saturation at home and assures me that it is never less than 94%. No additional testing at this time. Follow-up with Dr. Webster in 6 months. (3) BMI 33.0-33.9,adult: Status: Chronic Thony Banks NP, FIELD SALES CONSULTANT-C: Continue to encourage weight loss. (4) Bipolar disorder: Status: Chronic Qualifiers: Active/Remission status: remission status unspecified Qualified Code(s): F31.9 - Bipolar disorder, unspecified Plan - Yuni Banks FIELD SALES CONSULTANT, FIELD SALES CONSULTANT-C: Complicates exam, plan, care and prognosis. (5) Persistent atrial fibrillation: Status: Chronic Plan - Yuni Banks FIELD SALES CONSULTANT, FIELD SALES CONSULTANT-C: Complicates exam, plan, care and prognosis. Plan Details Follow Up: 6 Months (BWA) HPI 6 M FU Chief Complaint: Routine follow-up HPI Comments Details: This patient presents to the office today to follow-up on her pulmonary arterial hypertension, obstructive sleep apnea complicated by persistent atrial fibrillation and bipolar disorder. She is ambulatory and currently on room air. She has not been seen in the ED or urgent care for any respiratory illnesses. She has not required any antibiotics or prednisone for any breathing problems. She does have shortness of breath on exertion, it has not progressed. She has an occasional dry cough, also not worsened. She denies any wheezing, chest tightness, chest pain or palpitations. She denies any fever, chills or body aches. She reports that she had COVID-19 respiratory infection back in August 2021. She was fully vaccinated boosted at the time. Symptoms were mild and she did not require any intervention or hos pitalization. She is waking up feeling rested and refreshed with the use of her Pap machine. She states I cannot sleep without it . She denies any difficulty with dry mouth, morning headaches or excessive nocturia. She is not requiring naps and is not falling asleep unintentionally. She does have a portable pulse oximeter at home and checks her saturations all the time . She states that typically saturations are 94 to 95% on room air. Compliance report for the past 30 days shows 93% compliance with average use of 6 hours and 20 minutes per night. Current setting is 16/12 cmH2O with a residual AHI of 6.9 events per hour. Leaks do not appear to be an issue. Test results personally reviewed with the patient: Walking oximetry completed on August 12, 2021. The patient was able to ambulate total of 905 feet over the course of 6 minutes. Her saturation dropped to a low of 90%. No supplemental oxygen is indicated at this time but close monitoring is warranted. Intake Vital Signs 01/07/22 07:46 Height 5 ft 3 in Weight: 226 lb 2 oz BMI 40.0 BP 134/81 H Blood Pressure Location Lt brachial Position Sitting Respiration 16 Pulse 61 Pulse Source Monitor Temp 97.3 F L Temperature Source Temporal Artery Pulse Oximetry (%) 94 Oxygen Delivery Method room air Intake Visit Reasons: 6 M FU [facility] Vendor: [employer] Allergies No Known Allergies Allergy (Verified 01/07/22 07:48) Medications lamotrigine 200 mg PO DAILY 12/17/14 [History Confirmed 01/07/22] trazodone 100 mg tablet 200 mg PO DAILY tab 10/18/17 [History Confirmed 01/07/22] sertraline 100 mg tablet 100 mg PO BID tab 10/19/17 [History Confirmed 01/07/22] venlafaxine 37.5 mg tablet,extended release 24 hr 37.5 mg PO DAILY 10/27/18 [History Confirmed 01/07/22] multivitamin 1 tab PO DAILY 06/05/19 [History Confirmed 01/07/22] cholecalciferol (vitamin D3) 125 mcg (5,000 unit) tablet 5,000 unit PO DAILY tab 04/04/21 [History Confirmed 01/07/22] coenzyme Q10 200 mg capsule 200 mg PO DAILY 04/04/21 [History Confirmed 01/07/22] ramipril 10 mg capsule 10 mg PO QDAY #90 cap 04/04/21 [Rx Confirmed 01/07/22] ezetimibe 10 mg tablet 10 mg PO QDAY #90 tab 04/28/21 [Rx Confirmed 01/07/22] gemfibrozil 600 mg tablet 600 mg PO BID #180 tab 07/14/21 [Rx Confirmed 01/07/22] metoprolol tartrate 100 mg tablet 100 mg PO BID #180 tab 07/14/21 [Rx Confirmed 01/07/22] potassium chloride 10 mEq tablet,extended release(part/cryst) 10 meq PO DAILY #90 tab 07/14/21 [Rx Confirmed 01/07/22] hydrochlorothiazide 25 mg tablet 25 mg PO QDAY #90 tab 08/06/21 [Rx Confirmed 01/07/22] apixaban 5 mg tablet 5 mg PO BID #60 tab 12/10/21 [Rx Confirmed 01/07/22] verapamil 120 mg tablet,extended release 120 mg PO BID #180 tab 12/10/21 [Rx Confirmed 01/07/22] [facility] Medical History Bicuspid aortic valve Bipolar disorder CAD (coronary artery disease) Essential hypertension GERD (gastroesophageal reflux disease) Hyperlipidemia Long-term use of high-risk medication Non-rheumatic aortic stenosis Non-ST elevation (NSTEMI) myocardial infarction ( 08/21/11) Obstructive sleep apnea Palpitation Persistent atrial fibrillation Secondary pulmonary arterial hypertension Surgical History H/O discectomy History of maze procedure ( 10/22/04) history of pulmonary vein isolation ( 10/11/06) History of right and left heart catheterization ( 03/05/17) Family History Brother CAD (coronary artery disease) from [place] 52 Father Dementia Mother Cancer Social History Smoking Status: Former smoker how long ago did patient quit smokin second hand exposure: No alcohol intake: never substance use type: does not use caffeine: No what type of physical activity do you participate in: none Review of Systems Resp Respiratory: Yes as per HPI Exam Const Constitutional: Positive conversant, cooperative, in no acute respiratory distress, healthy appearing, well developed, well nourished and good hygiene Head Head: Yes normocephalic, Yes atraumatic and No cyanosis of lips/distal nose Eyes Eye: Positive clear conjunctiva; Negative nystagmus, scleral abnormality or cataract present Ears Ear: Positive hearing normal and external ears normal; Negative hard of hearing Nose Nose: Yes other (face mask in place) Neck Neck: Positive normal visual inspection, full ROM and trachea midline Chest Wall Chest: Positive normal inspection of the chest and symmetric chest movement Resp lung sounds: Positive clear to auscultation, good air exchange and normal expiratory time; Negative wheezes, wheeze present on forced exhalation, rhonchi, rales, dullness or use of accessory muscles Cardio Cardiac: Positive S1 normal and S2 normal; Negative regular rhythm (Irregularly irregular), murmur, rub or gallop GI GI: Positive normal to inspection and normal bowel sounds Genitourinary: Positive deferred Musc Musculoskeletal: Positive steady gait; Negative using an assistive device for ambulation, kyphosis or scoliosis Skin Pulmonary Skin Exam: Positive intact; Negative lesion, rash, ulcers or erythema Pulses Pulse: Yes radial pulses present Extremities Extremities: Yes capillary refill normal, No clubbing, No cyanosis and No edema Neuro Neurologic: Yes no focal neuro deficits, Yes conversant, Yes cooperative, Yes normal cognition, Yes normal coordination, Yes normal concentration and Yes understands questions Psych Appearance: Positive grossly normal Mental Status: Positive mental status grossly normal Mood: Positive congruent mood Affect: Positive normal affect Coding Level of Care Code Off vis,est,level 3 Diagnoses Obstructive sleep apnea G47.33 Secondary pulmonary arterial hypertension I27.21 BMI 33.0-33.9,adult Z68.33 Bipolar disorder F31.9 Active/Remission status: remission status unspecified Persistent atrial fibrillation I48.1 01/07/22 0816 <Electronically signed by Yuni Banks NP FIELD SALES CONSULTANT-C> Date Yuni Banks NP FIELD SALES CONSULTANT-C Cosigner Signature: Date (if applicable) CC: Dr. Lydia Marte, DO Lydia Marte DO Work Phone: Start: 11-12-2021 End: 11-12-2021 Echo Complete Comments: See Note; NOTES: [facility] Cardiovascular Services [address] [place] [address]. [place] [address] Echo Complete 11/12/21 1003 MR#: [id number] Acct: [id number] Name: ADRIANA DILL Rep #: [id number] : 1955 66 From: Ralph Mg MD Attending Dr: CRESCENCIO CastellanosC Status: JOSE ALFREDO NAZARIO Ordering Dr: Rachna De La Fuente NP FIELD SALES CONSULTANT-C Date: 11/12/21 Location: [facility] Sex: F C Admitted: Reason For Study: Bicuspid AoV Procedure This was a 2D Doppler, Color Flow transthoracic echocardiogram. The exam was of adequate technical quality. Exam performed in department. Left Ventricle Normal LV size. Left ventricular systolic function is normal. The estimated ejection fraction is 60 %. No regional wall motion abnormalities noted. Right Ventricle Normal RV size. Normal systolic function. Atria The left atrium is mildly enlarged. Normal right atrium. No doppler evidence for ASD. Mitral Valve There is mild mitral annular calcification. Extension of the mitral annular calcification on the base of the posterior mitral valve leaflet. Mild (1+) mitral valve insufficiency. Tricuspid Valve Normal tricuspid valve. Mild tricuspid valve insufficiency. Right ventricular systolic pressure estimated to be 54 mmHg. Aortic Valve Based upon the 2D echocardiographic images obtained there appears to be diffuse thickening, calcification, and restriction, of the aortic valve cusps and the appearance of fusion of the right and left coronary cusps, thus, resulting in a functionally bicuspid appearing aortic valve. Moderate aortic stenosis. Pulmonic Valve The pulmonic valve is not well visualized. Mild (1+) pulmonic valve insufficiency. Great Vessels Mildly dilated aortic root. Pericardium/Pleural No pericardial effusion. MMode/2D Measurements Calculations LVIDd: 4.5 cm IVSd: 0.92 cm LVOT diam: 2.1 cm LVIDs: 2.7 cm LVPWd: 1.0 cm LVOT area: 3.4 cm2 RVDd: 4.1 cm FS: 41.6 % Ao root diam: 4.2 cm LAV(MOD-bp): 69.8 ml LVAd ap4: 26.4 cm2 LAV(MOD-bp) Indexed: 34.7 ml/m2 LVLd ap4: 7.7 cm LAV(MOD-sp2): 75.6 ml EDV(MOD-sp4): 73.7 ml LAV(MOD-sp4): 65.3 ml EDV(sp4-el): 77.0 ml LVAs ap4: 15.6 cm2 LVLs ap4: 6.7 cm ESV(MOD-sp4): 31.7 ml ESV(sp4-el): 30.5 ml EF(MOD-sp4): 57.0 % EF(sp4-el): 60.3 % SV(MOD-sp4): 42.0 ml SV(sp4-el): 46.5 ml Aortic Valve Planimetry: 1.0 cm2 LA A4 area: 20.1 cm2 LA dimension(2D): 4.3 cm RA A4 area: 10.1 cm2 Doppler Measurements Calculations MV E max brina: 86.1 cm/sec Lat Peak E' Brina: 10.8 cm/sec Med Peak E' Brina: 6.1 cm/sec MV A max brina: 49.8 cm/sec E/E' lat: 7.9 E/E' med: 14.2 MV E/A: 1.7 Ao V2 max: 335.2 cm/sec LV V1 max: 98.0 cm/sec SV(LVOT): 83.4 ml Ao max P.9 mmHg LV V1 max P.8 mmHg Ao V2 mean: 241.8 cm/sec LV V1 mean P.3 mmHg Ao mean P.0 mmHg LV V1 mean: 73.3 cm/sec Ao V2 VTI: 83.5 cm LV V1 VTI: 24.3 cm CELESTE(I,D): 1.00 cm2 CELESTE(V,D): 1.0 cm2 PA V2 max: 86.7 cm/sec PI end-d brina: 158.4 cm/sec TR max brina: 333.7 cm/sec TR max P.5 mmHg ECHO/Echo Complete Interpretation Summary Left ventricular systolic function is normal. The estimated ejection fraction is 60 %. The left atrium is mildly enlarged. There is mild mitral annular calcification. Extension of the mitral annular calcification on the base of the posterior mitral valve leaflet. Mild (1+) mitral valve insufficiency. Mild tricuspid valve insufficiency. Based upon the 2D echocardiographic images obtained there appears to be diffuse thickening, calcification, and restriction, of the aortic valve cusps and the appearance of fusion of the right and left coronary cusps, thus, resulting in a functionally bicuspid appearing aortic valve. Moderate aortic stenosis. Mild (1+) pulmonic valve insufficiency. Mildly dilated aortic root. Right ventricular systolic pressure estimated to be 54 mmHg. Transmitral diastolic flow velocities suggest diastolic dysfunction (pseudonormal pattern). _ Ordering Physician: Rachna De La Fuente Referring Physician: Lydia Marte Performed By: Opal Martinez RDCS, RVT 11/12/211918 Date Ralph Mg MD CC: STEVEN De La Fuente; Dr. Lydia Marte, Date Dictated: 11/12/21 1003 Date Transcribed: 11/12/211918 Hand Hardener: Signed Lydia Marte DO Work Phone: Start: 10-08-2021 End: 10-08-2021 Cardiology Visit Report Comments: See Note; NOTES: [facility] [address] [place] [address] OFFICE VISIT Date of Service: 10/08/21 MR#: [id number] Acct: [id number] Name: ADRIANA DILL Rep #: [id number] : 1955 Provider: STEVEN Abraham rts Age/Sex: 66/F Location[place] [facility] [place] Status: Signed HPI HPI History of Present Illness Details: This is a 66-year-old white female who presents today for outpatient cardiovascular follow- up with a history of nonangiographically significant CAD, bicuspid aortic valve, dilated aortic root, atrial fibrillation status post post remote pulmonary vein isolation procedure, hyperlipidemia, hypertension, and obstructive sleep apnea. From a cardiac standpoint, the patient is doing well. She denies any palpitations, chest pain, pressure or heaviness. She does have SOB with exertion-this is nothing new or worsening. She denies Orthopnea, and PND. She wears a Bipap at night. She does not have bleeding issues; no blood in urine, stool or nosebleeds. She denies any decrease in energy level, myalgias, or claudication. She does not have edema, or sudden weight gain. She denies dizziness, lightheadedness, syncopal or near syncopal episodes, and headaches. Her PCP monitors her lipids. Intake Vital Signs 10/08/21 08:19 Height 5 ft 3 in Weight: 222 lb BP 124/77 H Blood Pressure Location Lt brachial Position Sitting Respiration 18 Pulse 68 Pulse Source Monitor Pulse Oximetry (%) 95 Intake Visit Reasons: 6 M FU Space Controller Required: No Accompanied by: None Is patient in pain?: No Allergies No Known Allergies Allergy (Verified 10/08/21 09:37) Medications lamotrigine 200 mg PO DAILY 12/17/14 [History Confirmed 10/08/21] trazodone 100 mg tablet 200 mg PO DAILY tab 10/18/17 [History Confirmed 10/08/21] sertraline 100 mg tablet 100 mg PO BID tab 10/19/17 [History Confirmed 10/08/21] venlafaxine 37.5 mg tablet,extended release 24 hr 37.5 mg PO DAILY 10/27/18 [History Confirmed 10/08/21] multivitamin 1 tab PO DAILY 06/05/19 [History Confirmed 10/08/21] verapamil 120 mg tablet,extended release 120 mg PO BID #180 tab 10/24/20 [Rx Confirmed 10/08/21] apixaban 5 mg tablet 5 mg PO BID #60 tab 12/30/20 [Rx Confirmed 10/08/21] cholecalciferol (vitamin D3) 125 mcg (5,000 unit) tablet 5,000 unit PO DAILY tab 04/04/21 [History Confirmed 10/08/21] coenzyme Q10 200 mg capsule 200 mg PO DAILY 04/04/21 [History Confirmed 10/08/21] ramipril 10 mg capsule 10 mg PO QDAY #90 cap 04/04/21 [Rx Confirmed 10/08/21] ezetimibe 10 mg tablet 10 mg PO QDAY #90 tab 04/28/21 [Rx Confirmed 10/08/21] gemfibrozil 600 mg tablet 600 mg PO BID #180 tab 07/14/21 [Rx Confirmed 10/08/21] metoprolol tartrate 100 mg tablet 100 mg PO BID #180 tab 07/14/21 [Rx Confirmed 10/08/21] potassium chloride 10 mEq tablet,extended release(part/cryst) 10 meq PO DAILY #90 tab 07/14/21 [Rx Confirmed 10/08/21] hydrochlorothiazide 25 mg tablet 25 mg PO QDAY #90 tab 08/06/21 [Rx Confirmed 10/08/21] [facility] Medical History Bicuspid aortic valve Bipolar disorder CAD (coronary artery disease) Essential hypertension GERD (gastroesophageal reflux disease) Hyperlipidemia Long-term use of high-risk medication Non-rheumatic aortic stenosis Non-ST elevation (NSTEMI) myocardial infarction ( 08/21/11) Obstructive sleep apnea Palpitation Persistent atrial fibrillation Secondary pulmonary arterial hypertension Surgical History (Reviewed 10/08/21 @ 10:00 by Rachna De La Fuente FIELD SALES CONSULTANT, FIELD SALES CONSULTANT-C) H/O discectomy History of maze procedure ( 10/22/04) history of pulmonary vein isolation ( 10/11/06) History of right and left heart catheterization ( 03/05/17) Family History (Reviewed 10/08/21 @ 10:00 by Rachna De La Fuente FIELD SALES CONSULTANT, FIELD SALES CONSULTANT-C) Brother CAD (coronary artery disease) from [place] 52 Father Dementia Mother Cancer Social History (Reviewed 10/08/21 @ 10:00 by Rachna De La Fuente FIELD SALES CONSULTANT, FIELD SALES CONSULTANT-C) Smoking Status: Former smoker how long ago did patient quit smokin second hand exposure: No alcohol intake: never substance use type: does not use caffeine: No what type of physical activity do you participate in: none ROS Const Const: Negative for fatigue, weakness, fever(s), headache(s), chills, frequent falls, weight gain or weight loss Eyes Eyes: Negative for blind spots, loss of peripheral vision, transient loss of vision, blurry vision, change in vision, double vision, floaters or tunnel vision ENT ENT: Negative for headache(s), dizziness, Nosebleed/epistaxis, balance problems or neck pain Cardio Chest Pain: No Palpitations: No Edema: None Muscle aches with walking: None Resp Respiratory: Positive for SOB with activity (nothing new or worsening); Negative for SOB at rest or SOB orthopnea SOB lying down GI GI: Negative nausea, vomiting, heartburn, bloating, vomiting blood/hematemesis, bright, red blood in stools or black,tarry stools Musc Musc: Negative for muscle aches/ myalgia, muscle weakness, joint pain or balance problems Neuro Neuro: Negative for dizziness, lightheadedness, near syncope, syncope, orthostatic symptoms, frequent falls, headache(s), weakness, blurry vision or double vision Glenn Hematologic/Lymphatic: Negative for easy bleeding or easy bruising Endo Endo: Negative for fatigue Cardiology Exam Const Appearance: cooperative and no acute distress Orientation: alert and oriented x3 Head Head: normal to inspection Ears: hearing grossly normal bilaterally Nose: external nose normal Face and Sinus: face symmetric Eyes General: appearance normal, both eyes and all related structures Eyelids: eyelids normal Conjunctivae: conjunctivae normal Pupils: PERRL and pupil size EOM: EOM intact bilaterally Neck Neck: normal visual inspection Carotids: Negative bruit Chest Chest inspection: normal inspection of the chest and normal respiratory effort Auscultation: Bilateral: Clear to Auscultation Cardio Palpation: normal PMI Rate: regular rate Rhythm: regular rhythm Heart sounds: S1 normal, S2 normal and murmur; Negative rub or gallop Murmur: Grade 3/6, harsh, mid systolic, LLSB, LVOT and sternal notch GI GI: normal to inspection and soft; Negative no hepatosplenomegaly Neuro General: patient alert, patient oriented x3 and CN's II-XI intact bilaterally Skin Skin: no rashes or lesions noted Extremities Pulses: Normal: Right Posterior Tibial Pulse, Left Posterior Tibial Pulse, Right Radial Pulse and Left Radial Pulse Lower Extremity Edema: None: Bilateral Psych Psychological: normal affect Supplemental Info Supplemental Information Echocardiogram: 02-15-2020 Interpretation Summary The estimated ejection fraction is 65 %. Stage 1 diastolic dysfunction. Mild (1+) tricuspid valve insufficiency. Right ventricular systolic pressure estimated to be 42 mmHg. Mild pulmonary hypertension. There is fusion between the right and left coronary cusps, making this a functionally bicuspid aortic valve. Peak aortic valve gradient 28 mmHg. Mean aortic valve gradient 17 mmHg. Calculated aortic valve area (continuity equation) is 1.5 cm2. Moderate aortic stenosis. Bicuspid aortic valve. Compared to echo report dated 10/26/2018, LV function has remained the same, RVSP has increased from 31 to 42 mmHg. Aortic valve gradient has remained about the same. Labs: No Data to Display Diagnostics: No Data to Display Pulmonary: Pulmonary Exercise Test Assessment and Plan Assessment and Plan (1) CAD (coronary artery disease): Status: Acute Plan - Rachna De La Fuente NP, FIELD SALES CONSULTANT-C: Patient has a history of coronary artery disease. She appears stable at this time. She denies any recent symptoms or events. She will continue her current medications, along with aggressive risk factor and lifestyle modifications. (2) Non-rheumatic aortic stenosis: Status: Chronic Thony - Rachna De La Fuente NP, FIELD SALES CONSULTANT-C: Patient has a history of nonrheumatic aortic valve stenosis. Her most recent echocardiogram from 02/15/2020 demonstrated moderate aortic stenosis. We will reevaluate this with an echocardiogram. (3) Bicuspid aortic valve: Status: Chronic Orders: Orders: Echo Complete Today Thony - Rachna De La Fuente NP, FIELD SALES CONSULTANT-C: Patient has a history of bicuspid aortic valve. Her most recent echocardiogram from 02/15/2020 demonstrated associated aortic root dilatation. We will obtain an echocardiogram to evaluate her aortic valve/root. (4) Persistent atrial fibrillation: Status: Chronic Thony De La Fuente NP, FIELD SALES CONSULTANT-C: Patient has a history of persistent atrial fibrillation. She appears to be in a regular rhythm on exam today. She appears stable at this time, and denies any recent symptoms or events. She will continue metoprolol 100 mg twice daily, apixaban 5 mg twice daily, and verapamil 120 mg twice daily. (5) History of maze procedure: Status: Resolved Comment: 10/22/2004 at [facility] Thony De La Fuente NP, FIELD SALES CONSULTANT-C: Patient has a history of Maze procedure in 2004. She appears to be in a regular rhythm on exam today. She will continue with her current medical therapy. (6) Essential hypertension: Status: Chronic Thony De La Fuente NP, FIELD SALES CONSULTANT-C: Patient has a history of hypertension. Her blood pressure is well controlled at this time. She will continue with her current medications. (7) Hyperlipidemia: Status: Chronic Orders: Orders: Lipid Profile Today Liver Profile Today Thony De La Fuente NP, FIELD SALES CONSULTANT-C: Patient has a history of hyperlipidemia. She is unsure of her last lipid and liver profile. We will obtain a lipid and liver profile at this time. She will continue Zetia 10 mg daily, and gemfibrozil 600 mg twice daily, along with aggressive risk factor and lifestyle modifications. Plan Details Additional Comments: We will follow-up in 6 months, or sooner if needed. Thank you for allowing me to participate in the care of your patient. Please don't hesitate to call if any issues arise. This note was generated using a voice recognition system and there may be incorrect words, spelling, or punctuation that were not noted when reviewing the office note prior to saving. Follow Up: 6 Months (FIELD SALES CONSULTANT/PA) 12 Months (PFM) Coding Level of Care Code Off vis,est,level 4 Diagnoses CAD (coronary artery disease) I25.10 Non-rheumatic aortic stenosis I35.0 Bicuspid aortic valve Q23.1 Persistent atrial fibrillation I48.1 History of maze procedure Z98.890 Essential hypertension I10 Hyperlipidemia E78.5 Coding Level of Care Code Off vis,est,level 4 Diagnoses CAD (coronary artery disease) I25.10 Non-rheumatic aortic stenosis I35.0 Bicuspid aortic valve Q23.1 Persistent atrial fibrillation I48.1 History of maze procedure Z98.890 Essential hypertension I10 Hyperlipidemia E78.5 10/08/21 1353 <Electronically signed by Rachna De La Fuente FIELD SALES CONSULTANT FIELD SALES CONSULTANT-C> Date Rachna De La Fuente FIELD SALES CONSULTANT FIELD SALES CONSULTANT-C 10/08/21 1446<Electronically signed by Ralph Mg MD> Cosigner Signature: Date (if applicable) Ralph Mg MD CC: Dr. Lydia Marte, DO Lydia Marte DO Work Phone: Start: 08-12-2021 End: 08-12-2021 6 Minute Walk Test Comments: See Note; NOTES: [facility]Neu[facility] [address] [place] [address] MR#: [id number] Acct: [id number] Name: ADRIANA DILL Rep #: [id number] : 1955 66 From: Ernesto Webster MD Referring Dr: Ernesto Webster MD Status: REG CLI Location: PSN Date: Sex: F C PSN 6 Minute Walk Test 6 Minute Walk Test 6 Minute Walk Test: 6 Minute Walk Test PSN:6-Minute Walk Test Start: 08/12/21 13:09 Freq: Status: Active Protocol: [id number] Document 08/12/21 13:09 SFENTON (Rec: 08/12/21 13:11 SFENTON [id number]) 6 Minute Walk Test Date Performed 08/12/21 Time Performed 12:30 Height 5 ft 3 in Weight: 97.976 kg Weight in Pounds 216.[address]: Ernesto Webstre Assistive device used: None Pre-test Oxygen Delivery Method Room Air Pulse Ox (%) 94 Pulse Rate (60-100 beats/min) 67 Dyspnea Leigha Scale (0-10) 0 Exertion Leigha Scale (6-20) 6 1st minute Oxygen Delivery Method Room Air Pulse Ox (%) 93 Pulse Rate (60-100 beats/min) 71 2nd minute Oxygen Delivery Method Room Air Pulse Ox (%) 94 Pulse Rate (60-100 beats/min) 75 3rd minute Oxygen Delivery Method Room Air Pulse Ox (%) 92 Pulse Rate (60-100 beats/min) 77 4th minute Oxygen Delivery Method Room Air Pulse Ox (%) 92 Pulse Rate (60-100 beats/min) 78 5th minute Oxygen Delivery Method Room Air Pulse Ox (%) 90 Pulse Rate (60-100 beats/min) 81 6th minute Oxygen Delivery Method Room Air Pulse Ox (%) 90 Pulse Rate (60-100 beats/min) 82 Dyspnea Leigha Scale (0-10) 1 Exertion Leigha Scale (6-20) 13 Post-test Oxygen Delivery Method Room Air Pulse Ox (%) 93 Pulse Rate (60-100 beats/min) 73 Full Laps Walked 15 Partial Lap, Number of Tiles Walked 20 Total Distance Walked (ft) 905 Interpretation Interpretation: The patient was able to ambulate 905 feet over the course of 6 minutes on room air with no assistive devices or breaks. The patient did experience significant desaturation from a baseline of 94% to as long as 90% without any significant tachycardia. These findings are consistent with a respiratory limitation exercise tolerance. Recommendations Recommendations: No supplemental oxygen is indicated at this time. However, patient will need to be followed closely given level of desaturation. 08/12/211451 <Electronically signed by Ernesto Webster MD> Date Ernesto Webster MD CC: Date Dictated: 08/12/211449 Date Transcribed: 08/12/211449 Hand Hardener: Dr. Ernesto Webster MD Signed Lydia Marte DO Work Phone: Start: 07-08-2021 End: 07-16-2021 Pulmonary Visit Report Comments: See Note; NOTES: [facility] [place] [address] [place] [address] OFFICE VISIT Date of Service: 07/08/21 MR#: [id number] Acct: [id number] Name: ADRIANA DILL Rep #: [id number] : 1955 Provider: Dr. Ernesto Webster MD Age/Sex: 66/F Location: [facility] Status: Signed Assessment and Plan Assessment and Plan (1) Obstructive sleep apnea: Status: Chronic Comment: BiPAP 16/12 centimeters of water with residual AHI of 8 (2) Secondary pulmonary arterial hypertension: Status: Chronic (3) BMI 33.0-33.9,adult: Status: Chronic (4) Persistent atrial fibrillation: Status: Chronic Orders: Orders: Influenza Immunization Today I27.21 Simple Pulmonary Exercise Test Today I27.21 Plan - Dr. Ernesto Webster MD: Discussion with patient about the appropriateness of discontinuing oxygen. Patient understands that we will have to get a walking oximetry to see if she continues to desaturate with ambulation. No pulmonary hypertension, it is very common to have normal saturations at rest, but desaturates significantly with ambulation. Patient has been compliant with her BiPAP therapy. Discussed with the patient about possible evaluation for ASV, but she did not feel this was necessary given her AHI is almost controlled. We will obtain a walking oximetry. If patient does not desaturate, oxygen can be discontinued. If she continues to require oxygen, it would be recommended that this be used as this could help her overall condition. Patient voiced understanding. Obtain walking oximetry. No new medications. Encourage compliance with BiPAP. Possible repeat titration in the future. Plan Details Other Orders: Orders: Influenza Immunization Today Z23 Follow Up: 6 Months (CSM) HPI 6 M FU Details: Patient is a 66-year-old female, currently under the care of Dr. Marte, who presents for evaluation secondary to request to discontinue oxygen. Since last visit, patient denies any ER visits, hospitalizations or prednisone burst. Patient overall feels subjectively improved. Patient reports that she has not used her oxygen in almost a year. Patient does monitor her saturations at home and states that they are always above 90%. Patient does admit that she tends to do this at rest. Patient believes that her BiPAP is made a significant improvement and feels that the oxygen should be able to be discontinued at any time. Patient does state that she has not had as much weight loss that she did previously. Patient states that she has had back issues that are limiting her ability to exercise and she feels this is significant. Patient has not had the opportunity to initiate a diet, but feels that she eats relatively well. Patient has been compliant with her BiPAP therapy. Patient uses a fullface interface and has been tolerating this well. Patient occasionally has some dry mouth, but wakes up feeling refreshed. Patient rarely takes naps and feels that she is doing well and benefiting from therapy. Patient denies any pain at the interface site, epistaxis, hoarseness or sore throat. Patient has not had significant lower extremity edema. Patient is not currently using any alcohol or narcotics in the evening. Patient did receive her COVID-19 vaccinations. Patient's last shot was in December. Patient does plan to get the booster shot in July. Patient has not received her flu shot and is requesting this today. Review of systems otherwise negative from a constitutional, HEENT, respiratory, cardiovascular, GI, genitourinary, musculoskeletal, skin, neurologic, psychiatric and hematologic system unless stated above. Testing personally reviewed with the patient Compliance report (June 2021): Compliant 87% of the time for an average of 6 hours 6 minutes on BiPAP 16/12 centimeters of water with a residual AHI of 7.8 (predominantly central) and well- controlled leak. Intake Vital Signs 07/08/21 05:26 Height 5 ft 3 in Weight: 100.244 kg BP 118/72 Blood Pressure Location Lt brachial Position Sitting Respiration 16 Pulse 67 Pulse Source Monitor Temp 36.8 C Temperature Source Tympanic Pulse Oximetry (%) 95 Oxygen Delivery Method room air Intake Visit Reasons: 6 M FU [facility] Vendor: [employer] Allergies No Known Allergies Allergy (Verified 04/04/21 09:30) [facility] Medical History (Updated 07/08/21 @ 08:[address] Ernesto Webster MD) Bicuspid aortic valve Bipolar disorder CAD (coronary artery disease) Essential hypertension GERD (gastroesophageal reflux disease) Hyperlipidemia Long-term use of high-risk medication Non-rheumatic aortic stenosis Non-ST elevation (NSTEMI) myocardial infarction ( 08/21/11) Obstructive sleep apnea Palpitation Persistent atrial fibrillation Secondary pulmonary arterial hypertension Surgical History H/O discectomy History of maze procedure ( 10/22/04) history of pulmonary vein isolation ( 10/11/06) History of right and left heart catheterization ( 03/05/17) Family History Brother CAD (coronary artery disease) from [place] 52 Father Dementia Mother Cancer Social History Smoking Status: Former smoker how long ago did patient quit smokin second hand exposure: No alcohol intake: never substance use type: does not use caffeine: No what type of physical activity do you participate in: none Review of Systems Resp Respiratory: Yes as per HPI Exam Const Constitutional: Positive conversant, cooperative, in no acute respiratory distress, healthy appearing, well developed, well nourished and good hygiene Head Head: Yes normocephalic, Yes atraumatic and No cyanosis of lips/distal nose Eyes Eye: Positive clear conjunctiva; Negative nystagmus, scleral abnormality or cataract present Ears Ear: Positive hearing normal and external ears normal; Negative hard of hearing Neck Neck: Positive normal visual inspection, full ROM and trachea midline; Negative lymphadenopathy or JVD Chest Wall Chest: Positive normal inspection of the chest and symmetric chest movement; Negative crepitus or tenderness Resp lung sounds: Positive clear to auscultation, good air exchange and normal expiratory time; Negative wheezes, wheeze present on forced exhalation, rhonchi, rales, dullness or use of accessory muscles Cardio Cardiac: Positive regular rate, S1 normal and S2 normal; Negative regular rhythm (Irregularly irregular), murmur, rub or gallop GI GI: Positive normal to inspection and normal bowel sounds; Negative distended, ascites or epigastric tenderness Genitourinary: Positive deferred Musc Musculoskeletal: Positive steady gait; Negative using an assistive device for ambulation, kyphosis or scoliosis Skin Pulmonary Skin Exam: Positive intact; Negative lesion, rash, ulcers or erythema Pulses Pulse: Yes radial pulses present Extremities Extremities: Yes capillary refill normal, No clubbing, No cyanosis and No edema Neuro Neurologic: Yes no focal neuro deficits, Yes conversant, Yes cooperative, Yes normal cognition, Yes normal coordination, Yes normal concentration and Yes understands questions Lymph Lymphatic: No lymphadenopathy Psych Appearance: Positive grossly normal Mental Status: Positive mental status grossly normal Mood: Positive congruent mood Affect: Positive normal affect Office Meds Fluad Quad (65y up)(PF) 60 mcg (15 mcg x 4)/0.5 mL Performing Provider: Ernesto Webster MD Administered by: Amee Moncada on 07/08/21 08:32 Dose Route Admin Location Lot Number Expiration Date NDC Manufactu rer 60 mcg IM Right arm [id number] 02/05/22 93908-945-14 [employer] Coding Level of Care Code Off vis,est,level 3 Diagnoses Obstructive sleep apnea G47.33 Secondary pulmonary arterial hypertension I27.21 BMI 33.0-33.9,adult Z68.33 Persistent atrial fibrillation I48.1 07/08/21 0903 <Electronically signed by Ernesto Webster MD> Date Ernesto Webster MD Cosign Signature: Date (if applicable) CC: Dr. Lydia Marte, DO Lydia Marte DO Work Phone: Start: 04-04-2021 End: 04-04-2021 Cardiology Visit Report Comments: See Note; NOTES: [facility] [address] [place] [address]. [address] [place], [place] [address] OFFICE VISIT Date of Service: 04/04/21 MR#: [id number] Acct: [id number] Name: ADRIANA DILL Rep #: [id number] : 1955 Provider: Dr. Ralph horowitz MD Age/Sex: 66/F Location: [facility] [place] Status: Signed HPI HPI History of Present Illness Details: This is a 66-year-old white female who presents today for outpatient cardiovascular follow- up with a history of nonangiographically significant CAD, bicuspid aortic valve, dilated aortic root, atrial fibrillation status post post remote pulmonary vein isolation procedure, hyperlipidemia, hypertension, and obstructive sleep apnea. Since her last visit she states overall she feels she has been doing reasonably well. She notes adjusting her medications with respect to her verapamil appear to assist with her atrial fibrillation events. She believes she is only had 2 very brief paroxysmal atrial relation events since her last visit. The patient denies symptoms considered classic for angina pectoris, CHF / pulmonary edema (with respect to orthopnea / PND), ongoing palpitations, or near syncope / syncope. The patient denies ongoing peripheral pitting edema. She states her PCP is monitoring her lipid labs. Intake Vital Signs 04/04/21 09:15 Height 5 ft 3 in Weight: 215 lb BMI 38.0 BP 128/78 H Blood Pressure Location Lt brachial Position Sitting Respiration 16 Pulse 60 Pulse Source Auscultation Intake Visit Reasons: 6 M FU Space Controller Required: No Accompanied by: None Is patient in pain?: No Allergies No Known Allergies Allergy (Verified 04/04/21 09:30) Medications lamotrigine 200 mg PO DAILY 12/17/14 [History Confirmed 04/04/21] trazodone 100 mg tablet 200 mg PO DAILY tab 10/18/17 [History Confirmed 04/04/21] sertraline 100 mg tablet 100 mg PO BID tab 10/19/17 [History Confirmed 04/04/21] venlafaxine 37.5 mg tablet,extended release 24 hr 37.5 mg PO DAILY 10/27/18 [History Confirmed 04/04/21] multivitamin 1 tab PO DAILY 06/05/19 [History Confirmed 12/31/20] ezetimibe 10 mg tablet 10 mg PO QDAY #90 tab 01/26/20 [Rx Confirmed 04/04/21] gemfibrozil 600 mg tablet 600 mg PO BID #180 tab 01/26/20 [Rx Confirmed 04/04/21] metoprolol tartrate 100 mg tablet 100 mg PO BID #180 tab 04/18/20 [Rx Confirmed 04/04/21] potassium chloride 10 mEq tablet,extended release(part/cryst) 10 meq PO DAILY #90 tab 04/18/20 [Rx Confirmed 04/04/21] hydrochlorothiazide 25 mg tablet 25 mg PO QDAY #90 tab 06/05/20 [Rx Confirmed 04/04/21] verapamil 120 mg tablet,extended release 120 mg PO BID #180 tab 10/24/20 [Rx Confirmed 04/04/21] apixaban 5 mg tablet 5 mg PO BID #60 tab 12/30/20 [Rx Confirmed 04/04/21] cholecalciferol (vitamin D3) 125 mcg (5,000 unit) tablet 5,000 unit PO DAILY tab 04/04/21 [History Confirmed 04/04/21] coenzyme Q10 200 mg capsule 200 mg PO DAILY 04/04/21 [History Confirmed 04/04/21] ramipril 10 mg capsule 10 mg PO QDAY #90 cap 04/04/21 [Rx Confirmed 04/04/21] Ejection fraction %: 65 to 70 [facility] Medical History (Updated 04/04/21 @ 09:[address] Ralph Mg MD) Bicuspid aortic valve Bipolar disorder CAD (coronary artery disease) Essential hypertension GERD (gastroesophageal reflux disease) Hyperlipidemia Long-term use of high-risk medication Non-rheumatic aortic stenosis Non-ST elevation (NSTEMI) myocardial infarction ( 08/21/11) Obstructive sleep apnea Palpitation Persistent atrial fibrillation Secondary pulmonary arterial hypertension Surgical History H/O discectomy History of maze procedure ( 10/22/04) history of pulmonary vein isolation ( 10/11/06) History of right and left heart catheterization ( 03/05/17) Family History Brother CAD (coronary artery disease) from [place] age 52 Father Dementia Mother Cancer Social History Smoking Status: Former smoker how long ago did patient quit smokin second hand exposure: No alcohol intake: never substance use type: does not use caffeine: No what type of physical activity do you participate in: none ROS Const Const: Negative for fatigue, weakness, headache(s), frequent falls, difficulty sleeping or excessive sweating Eyes Eyes: Negative for loss of peripheral vision, transient loss of vision, blurry vision, double vision or tunnel vision ENT ENT: Positive for balance problems; Negative for headache(s), dizziness or Nosebleed/epistaxis Cardio Chest Pain: No Palpitations: Yes (Occasionally-improved since increasing verapamil) feels like its: fast Edema: None Muscle aches with walking: None Resp Respiratory: Negative for SOB with activity, SOB at rest, SOB orthopnea SOB lying down, Cough or paroxysmal nocturnal dyspnea GI GI: Negative nausea, vomiting, heartburn or black,tarry stools : Negative for hematuria Musc Musc: Positive for muscle weakness, joint pain and balance problems; Negative for muscle aches/ myalgia Skin Skin: Negative non-healing lesions, rash or unusual bruising Neuro Neuro: Negative for dizziness, lightheadedness, near syncope, syncope, frequent falls, headache(s), weakness, blurry vision, double vision or lack of coordination Glenn Hematologic/Lymphatic: Negative for easy bleeding or easy bruising Endo Endo: Negative for fatigue, excessive sweating or increased thirst/drinking Psych Psych: Negative for anxiety or depression Allergy Allergy/Immunology: Negative for hives and Negative for rash Cardiology Exam Const Appearance: cooperative, healthy appearing, comfortable, no acute distress, well developed and well groomed Nutritional Appearance: obese Orientation: alert, awake and oriented x3 Head Head: normal to inspection, normocephalic and atraumatic Ears: hearing grossly normal bilaterally Nose: external nose normal Face and Sinus: face symmetric Eyes Eyelids: eyelids normal Conjunctivae: conjunctivae normal Pupils: PERRL EOM: EOM intact bilaterally Neck Neck: normal visual inspection and full ROM Carotids: normal carotid upstroke Chest Chest inspection: normal inspection of the chest, symmetric chest movement and normal respiratory effort Auscultation: Bilateral: Clear to Auscultation Cardio Palpation: normal PMI Rate: regular rate Rhythm: regular rhythm Heart sounds: S1 normal, S2 normal and murmur Murmur: Grade 3/6, harsh, mid systolic, LLSB, LVOT and sternal notch GI GI: normal to inspection, soft, bowel sounds present and obese Neuro General: patient alert, patient awake, patient oriented x3 and moves all extremities Skin Skin: no rashes or lesions noted Extremities Pulses: Normal: Right Radial Pulse and Left Radial Pulse Lower Extremity Edema: None: Bilateral Psych Psychological: normal affect Assessment and Plan Assessment and Plan (1) CAD (coronary artery disease): Status: Acute Plan - Dr. Ralph Mg MD: At the present time she will continue risk factor modification medical therapy as tolerated. (2) Bicuspid aortic valve: Status: Chronic Orders: Orders: Echo Complete Today Plan - Dr. Ralph Mg MD: She does have a report of a bicuspid aortic valve with associated aortic root dilatation. Her previous noninvasive studies were reviewed. Her previous invasive studies were reviewed as well. She will have a follow-up echocardiogram to monitor her aortic valve/root. (3) Persistent atrial fibrillation: Status: Chronic Plan - Dr. Ralph Mg MD: She has a history of atrial fibrillation. At the moment she remains in a regular rhythm. She will continue her current medical therapy which does include anticoagulant therapy. (4) History of maze procedure: Status: Resolved Comment: 10/22/2004 at [facility] - Dr. Ralph Mg MD: She has undergone previous pulmonary vein isolation procedure as noted. Again at the moment she appears to remain in a regular rhythm. She will continue her current medical therapy and follow-up. (5) Hyperlipidemia: Status: Chronic Plan - Dr. Ralph Mg MD: A copy of her lipid labs will be appreciated for continuity of care. (6) Essential hypertension: Status: Chronic Plan - Dr. Ralph Mg MD: Her blood pressure appears to be well controlled this time. She will continue medical therapy. Plan Details Other Medications: Refilled: ramipril 10 mg PO QDAY 90 caps 4RF Additional Comments: Thank you for allowing me to participate in the care of your patient. Please don't hesitate to call if any issues arise. This note was generated using a voice recognition system and there may be incorrect words, spelling or punctuation that were not noted when reviewing the office note prior to saving. Follow Up: 6 Months (PFM) Coding Level of Care Code Off vis,est,level 4 Diagnoses CAD (coronary artery disease) I25.10 Bicuspid aortic valve Q23.1 Persistent atrial fibrillation I48.1 History of maze procedure Z98.890 Hyperlipidemia E78.5 Essential hypertension I10 Coding Level of Care Code Off vis,est,level 4 Diagnoses CAD (coronary artery disease) I25.10 Bicuspid aortic valve Q23.1 Persistent atrial fibrillation I48.1 History of maze procedure Z98.890 Hyperlipidemia E78.5 Essential hypertension I10 Supplemental Info Supplemental Information Echocardiogram: 02-15-2020 Interpretation Summary The estimated ejection fraction is 65 %. Stage 1 diastolic dysfunction. Mild (1+) tricuspid valve insufficiency. Right ventricular systolic pressure estimated to be 42 mmHg. Mild pulmonary hypertension. There is fusion between the right and left coronary cusps, making this a functionally bicuspid aortic valve. Peak aortic valve gradient 28 mmHg. Mean aortic valve gradient 17 mmHg. Calculated aortic valve area (continuity equation) is 1.5 cm2. Moderate aortic stenosis. Bicuspid aortic valve. Compared to echo report dated 10/26/2018, LV function has remained the same, RVSP has increased from 31 to 42 mmHg. Aortic valve gradient has remained about the same. Labs: LDL Cholesterol 109 mg/dL (0-130) HDL Cholesterol 70 mg/dL (40-) Triglycerides 79 mg/dL (-199) VLDL Cholesterol 16 mg/dL (5-40) Diagnostics: Echocardiogram Chest X-Ray Pulmonary: Pulmonary Function Test Pulmonary Exercise Test 04/04/21 1005 <Electronically signed by Ralph Mg MD> Date Ralph Mg MD Cosigner Signature: Date (if applicable) CC: Dr. Lydia Marte, DO Lydia Marte DO Work Phone: Start: 12-31-2020 End: 12-31-2020 Pulmonary Visit Report Comments: See Note; NOTES: [facility] Pulmonary Medicine [address] [place] [address] OFFICE VISIT Date of Service: 12/31/20 MR#: [id number] Acct: [id number] Name: ADRIANA DILL Rep #: [id number] : 1955 Provider: STEVEN Banks Age/Sex: 65/F Location[place] [facility] Status: Signed Assessment Plan Problems 1. Obstructive sleep apnea G47.33 2. Secondary pulmonary arterial hypertension I27.21 3. BMI 33.0-33.9,adult Z68.33 Plan Stable, the patient is using and benefiting from Pap therapy. No indication for titration study at this time. I asked her to check her oxygen saturations with ambulation as well as at rest. Continue to encourage weight loss, she has had success so far on weight watchers. Contact the office for any new or worsening symptoms in the meantime. Follow-up in [address] Webster. Plan Detail Follow Up 6 Months (SUZETTE) HPI 6 M FU: Chief Complaint: Routine follow-up HPI Comments Details: This patient presents to the office today to follow-up on her obstructive sleep apnea and pulmonary arterial hypertension. She is ambulatory and currently on room air. She is accompanied today by her . She has not been seen in the ED or urgent care for any respiratory illnesses since her last office visit. She has not required any antibiotics or prednisone for any breathing problems. She continues to have shortness of breath on exertion, it has not progressed. She does have a portable pulse oximeter and has been checking her oxygen saturations at home. She states that typically she is 93% on room air. However, she admits that she only checks her oxygen saturation at rest and has not checked it on ambulation. She is reporting a dry mouth in the mornings with the use of her Pap. She is waking up feeling rested. She is not napping and not falling asleep easily when sitting still. Her reports that she is not snoring through the mask but he does occasionally hear the mask leaking. She denies any episodes of nocturia. Our scale has documented that she is down 8 pounds. She states according to her home scale it is more than that. She has been doing weight watchers. Compliance report for the past 30 days shows 97% compliance with an average use of 6 hours per night. Current setting is 16/12 cmH2O with a residual AHI of 5 events per hour. Leaks do not appear to be a consistent issue, however are occurring occasionally. Intake Vital Signs 12/31/20 Height 5 ft 3 in 12/31/20 Weight: 220 lb 12/31/20 BMI 38.9 12/31/20 BP 111/72 12/31/20 Blood Pressure Location Lt brachial 12/31/20 Position Sitting 12/31/20 Respiration 16 12/31/20 Pulse 61 12/31/20 Pulse Source Monitor 12/31/20 Temp 98.0 F 12/31/20 Temperature Source Tympanic 12/31/20 Pulse Oximetry (%) 93 12/31/20 Oxygen Delivery Method room air Intake Visit Reasons: 6 M FU [facility] Vendor: [employer] Allergies No Known Allergies Allergy (Verified 12/31/20 07:39) Medications Lamotrigine [Lamictal] 200 mg PO DAILY 12/17/14 [History Confirmed 12/31/20] trazodone 100 mg tablet 200 mg PO DAILY tab 10/18/17 [History Confirmed 12/31/20] sertraline 100 mg tablet 100 mg PO BID tab 10/19/17 [History Confirmed 12/31/20] cholecalciferol (vitamin D3) 25 mcg (1,000 unit) capsule 1,000 unit PO DAILY 10/27/18 [History Confirmed 12/31/20] venlafaxine 37.5 mg tablet,extended release 24 hr 37.5 mg PO DAILY 10/27/18 [History Confirmed 12/31/20] coenzyme Q10 100 mg capsule 100 mg PO DAILY 06/05/19 [History Confirmed 12/31/20] multivitamin 1 tab PO DAILY 06/05/19 [History Confirmed 12/31/20] ezetimibe 10 mg tablet 10 mg PO QDAY #90 tab 01/26/20 [Rx Confirmed 12/31/20] gemfibrozil 600 mg tablet 600 mg PO BID #180 tab 01/26/20 [Rx Confirmed 12/31/20] metoprolol tartrate 100 mg tablet 100 mg PO BID #180 tab 04/18/20 [Rx Confirmed 12/31/20] potassium chloride 10 mEq tablet,extended release(part/cryst) 10 meq PO DAILY #90 tab 04/18/20 [Rx Confirmed 12/31/20] hydrochlorothiazide 25 mg tablet 25 mg PO QDAY #90 tab 06/05/20 [Rx Confirmed 12/31/20] ramipril 10 mg capsule 10 mg PO QDAY #90 cap 06/24/20 [Rx Confirmed 12/31/20] verapamil 120 mg tablet,extended release 120 mg PO BID #180 tab 10/24/20 [Rx Confirmed 12/31/20] apixaban 5 mg tablet 5 mg PO BID #60 tab 12/30/20 [Rx Confirmed 12/31/20] [facility] Medical History Essential hypertension (Chronic) Long-term use of high-risk medication (Chronic) Hyperlipidemia (Chronic) Bipolar disorder (Chronic) Non-rheumatic aortic stenosis (Chronic) Obstructive sleep apnea (Chronic) Secondary pulmonary arterial hypertension (Chronic) GERD (gastroesophageal reflux disease) (Chronic) Non-ST elevation (NSTEMI) myocardial infarction (Chronic 08/21/11) Palpitation (Acute) Persistent atrial fibrillation (Chronic) Dyslipidemia (Chronic) Bicuspid aortic valve (Chronic) Surgical History history of pulmonary vein isolation (Chronic 10/11/06) History of maze procedure (Resolved 10/22/04) H/O discectomy (Resolved) History of right and left heart catheterization (Resolved 03/05/17) Family History Brother CAD (coronary artery disease) from [place] age 52 Father Dementia Mother Cancer Social History (Updated 12/31/20 @ 08:07 by Yuni Banks FIELD SALES CONSULTANT, FIELD SALES CONSULTANT-C) Smoking Status: Former smoker how long ago did patient quit smokin second hand exposure: No alcohol intake: never substance use type: does not use caffeine: No what type of physical activity do you participate in: none Review of Systems Resp Respiratory: Yes as per HPI Exam Const Constitutional: Positive conversant, cooperative, in no acute respiratory distress, healthy appearing, well developed, well nourished and good hygiene; negative wearing supplemental oxygen or ill appearing Head Head: Yes normocephalic, Yes atraumatic Eyes Eye: Positive clear conjunctiva; negative nystagmus Ears Ear: Positive hearing normal and external ears normal; negative hard of hearing Neck Neck: Positive normal visual inspection, full ROM, trachea midline and female neck greater than 37 cm (15 in); negative lymphadenopathy or JVD Chest Wall Chest: Positive normal inspection of the chest and symmetric chest movement; negative crepitus or tenderness Resp lung sounds: Positive diminished, normal expiratory time and normal respiratory effort; negative wheezes, rhonchi, rales or use of accessory muscles Cardio Cardiac: Positive regular rate, regular rhythm, S1 normal, S2 normal and murmur murmur: Positive RUSB, LUSB and systolic GI GI: Positive normal to inspection; negative distended, ascites or epigastric tenderness Genitourinary: Positive deferred Musc Musculoskeletal: Positive steady gait and kyphosis; negative using an assistive device for ambulation or scoliosis Skin Pulmonary Skin Exam: Positive intact; negative lesion, rash, ulcers, erythema, scaly or dermal atrophy Extremities Extremities: No clubbing, No cyanosis, Yes edema (Trace lower extremity), No stasis dermatitis Neuro Neurologic: Yes no focal neuro deficits, Yes conversant, Yes cooperative, Yes normal cognition, Yes normal coordination, Yes normal concentration, Yes understands questions, No tremor Psych Appearance: Positive grossly normal, eye contact and well kempt Mental Status: Positive mental status grossly normal Mood: Positive congruent mood Affect: Positive normal affect Coding Level of Care Code Off vis,est,level 3 Diagnoses Obstructive sleep apnea G47.33 Secondary pulmonary arterial hypertension I27.21 BMI 33.0-33.9,adult Z68.33 12/31/20 0807 <Electronically signed by Yuni Banks NP, NP-C> Date Yuni Banks NP FIELD SALES CONSULTANT-C Cosigner Signature: Date (if applicable) CC: DO Lydia Martinez DO Work Phone: Start: 10-16-2020 End: 10-16-2020 Dexa Bone Density Study Comments: See Note; NOTES: [facility] Imaging Services [address] [place] [id number] Dexa Bone Density Study MR#: [id number] Acct: [id number] Name: ADRIANA DILL Rep #: [id number] : 1955 F 65 From: Daryn jennings MD PCP: Dr. Lydia Marte DO Status: [facility] CL Study: Dexa Bone Density Study Date of Exam: 10/16/20 Exam# [id number] Ordering Dr: Lydia Marte DO STUDY: DUAL ENERGY X-RAY ABSORPTIOMETRY / DXA REASON FOR EXAM: Female, 65 years old. SYSTEMS TESTER- EARLY AT 45 YRS OLD -- HX OF HRT x1 YR IN PAST -- HX OF SMOKING IN PAST -- TAKES DIURETIC -- TAKES MULTIVITAMIN -- DOES LITTLE EXERCISE -- HX OF LUMBAR DISCECTOMY -- RAE OF 2 INCHES TECHNIQUE: Bone Mineral Density (BMD) measurements of lumbar spine and bilateral hips were obtained. COMPARISON: Comparison is made with prior study dated 11/17/2011. FINDINGS: Lumbar Spine (L1-L4): g/cm2 (1.316) / T-score (1.0) / Z-score (2.6) Findings are suggestive of normal bone density with a low fracture risk. Left Femur Total: g/cm2 (1.016) / T-score (0.1) / Z-score (1.3) Left Femoral Neck: g/cm2 (0.900) / T-score (-1.0) / Z-score (0.5) Right Femur Total: g/cm2 (1.061) / T-score (0.4) / Z-score (1.6) Right Femoral Neck: g/cm2 (0.957) / T-score (-0.6) / Z-score (0.9) The T-Scores on the most recent prior examination were: Lumbar Spine (L1-L4): There has been improvement of bone density since the previous examination. Left Femur Total: which represents a worsening of 6.2%. Right Femur Total: which represents a worsening of 0.9%. BD/Dexa Bone Density Study IMPRESSION: The patient is considered normal as outlined below according to World Eduardo Organization (WHO) criteria with a low fracture risk. There has been worsening of bone density since the previous examination. Reference Information: The T-score is the number of standard deviations above or below the standard which is normal for young adults at their peak bone mineral density. The World Health Organization (WHO) interprets the T-scores as follows: Above -1 Normal bone density Between -1 and -2.5 Osteopenia Equal to / or below -2.5 Osteoporosis As a practical clinical guideline, osteopenia may be graded as follows: Mild -1 through -1.5 Moderate -1.6 through -2.0 Severe -2.1 through -2.4 The Z-score is the number of standard deviations above or below age-matched controls. A Z-score of less than -1.5 would be considered abnormal. References: 1. NIH Osteoporosis and Related Bone Diseases www osteo.org 2. International Society for Clinical Densitometry www iscd.org 3. National Osteoporosis Foundation www nof.org Electronically Signed: Daryn Phelan MD at 12:32 EST , Service support , CC: Dr. Lydia Marte DO Hand Hardener: Signed Lydia Marte DO Work Phone: Start: 10-16-2020 End: 10-16-2020 SCRN MAMM (CAD)W/STEPAN BILAT Comments: See Note; NOTES: [facility] Imaging Services [address] [place] [id number] SCRN MAMM (CAD)W/STEPAN BILAT MR#: [id number] Acct: [id number] Name: ADRIANA DILL Rep #: [id number] : 1955 F 65 From: Daryn jennings MD PCP: Dr. Lydia Marte DO Status: REG CLI Study: SCRN MAMM (CAD)W/STEPAN BILAT Date of Exam: 09/21 04/09 Exam# [id number] Ordering Dr: Lydia Marte DO MAMMOGRAPHY - BILATERAL SCREENING REASON FOR EXAM: Female, 65 years old. Routine annual screening examination. PERTINENT HISTORY: Grandmother with breast cancer. Aunt with breast cancer. Prior right stereotactic breast biopsy. TECHNIQUE: Digital bilateral breast stepan (3D mammographic acquisition) in the CC and MLO projections. 2-D mediolateral oblique (MLO) and craniocaudad (CC) views of both breasts were obtained. CAD: Full Field Digital Mammography with Computer Added Detection was performed. COMPARISON: Comparison is made with prior study dated 08/18/2016. FINDINGS: Breast Composition: The breasts are heterogeneously dense, which may obscure small masses. There are no dominant masses or suspicious calcifications. Stable punctate calcifications in both breasts suggestive of adenosis. No focal clusters seen. No other significant abnormalities are identified. There has been no significant change since the prior study. BI/SCRN MAMM (CAD)W/STEPAN BILAT IMPRESSION: Stable bilateral screening mammogram. Yearly follow-up mammogram recommended. (A) ASSESSMENT CATEGORY: BIRADS Category 2: Benign. A letter regarding these results will be sent to the patient by the facility within 30 days. Approximately 10% of breast cancers are not detected by mammography. A normal mammogram should not delay biopsy of a clinically suspicious abnormality. [id number] Electronically Signed: Daryn Phelan MD at 11:53 EST , Service support , CC: Dr. Lydia Marte DO Hand Hardener: Signed Lydia Marte DO Work Phone: Start: 08-22-2020 End: 08-22-2020 Cardiology Visit Report Comments: See Note; NOTES: [facility] [place] [address] OFFICE VISIT Date of Service: 08/22/20 MR#: [id number] Acct: [id number] Name: FUENTESADRIANA E Rep #: [id number] : 1955 Provider: Dr. Ralph horowitz MD Age/Sex: 65/F Location: [facility] [place] Status: Signed HPI [facility] History of Present Illness Details: This is a 65-year-old white female who presents today for outpatient cardiovascular follow- up with a history of underlying CAD-nonangiographically significant, non-ST segment elevation [place], bicuspid aortic valve, dilated aortic root, atrial fibrillation status post remote pulmonary vein isolation procedure, superimposed upon a history of hyperlipidemia, hypertension, obstructive sleep apnea, and pulmonary hypertension. She has previously been followed by my former colleague Dr. Stanley Marcos MD. Since her last visit she states from a cardiac standpoint she feels she has been doing reasonably well. She does not describe any ongoing symptoms at this time of classic angina pectoris and there is been no overt episodes of acute CHF or pulmonary edema. She states she occasionally does have palpitations. She notes her heart rate quickly speeds up but then stops and returns to normal. She notes this is not new and has been going on over the course of her cardiovascular history. She has not had any near-syncope or syncope. She did have a transthoracic echocardiogram performed in January of this year to monitor her cardiovascular status including her aortic valve. The aortic valve was described as bicuspid with moderate aortic valve stenosis. The results are as noted below. Based upon Dr. Marcos's previous outpatient cardiovascular note the patient has a history of the following: Atrial fibrillation status post pulmonary vein isolation at the [facility] in 2003 Mild coronary disease status post non ST elevation myocardial infarction status post catheterization at [facility] in August 2011 Bicuspid aortic valve with mildly dilated ascending aorta and mild aortic insufficiency by echocardiogram dated 07/2012. CT scan of the chest demonstrated no significant aortic dilatation according to the report. Left and right heart catheterization at [facility] by myself on 03/05/17 which demonstrated normal coronary arteries, mild aortic valvular calcification, unable to cross the bicuspid aortic valve and mild aortic insufficiency. PFTs which were performed on 03/18/17 which [...] is taking and tolerating her medicines well. Intake Vital Signs 08/22/20 Height 5 ft 4 in 08/22/20 Weight: 228 lb 12/03/20 BMI 39.1 08/22/20 BP 130/88 H 08/22/20 Blood Pressure Location Lt brachial 08/22/20 Position Sitting 08/22/20 Respiration 16 08/22/20 Pulse 60 08/22/20 Pulse Source Auscultation Intake Visit Reasons: 6 M FU(AL PT) Space Controller Required: No Accompanied by: Self Allergies No Known Allergies Allergy (Verified 08/22/20 11:02) Medications Lamotrigine [Lamictal] 200 mg PO DAILY 12/17/14 [History Confirmed 08/22/20] trazodone 100 mg tablet 200 mg PO DAILY tab 10/18/17 [History Confirmed 08/22/20] sertraline 100 mg tablet 100 mg PO BID tab 10/19/17 [History Confirmed 08/22/20] cholecalciferol (vitamin D3) 25 mcg (1,000 unit) capsule 1,000 unit PO DAILY 10/27/18 [History Confirmed 08/22/20] venlafaxine 37.5 mg tablet,extended release 24 hr 37.5 mg PO DAILY 10/27/18 [History Confirmed 08/22/20] coenzyme Q10 100 mg capsule 100 mg PO DAILY 06/05/19 [History Confirmed 08/22/20] multivitamin 1 tab PO DAILY 06/05/19 [History Confirmed 08/22/20] apixaban 5 mg tablet 5 mg PO BID #60 tab 12/29/19 [Rx Confirmed 08/22/20] ezetimibe 10 mg tablet 10 mg PO QDAY #90 tab 01/26/20 [Rx Confirmed 08/22/20] gemfibrozil 600 mg tablet 600 mg PO BID #180 tab 01/26/20 [Rx Confirmed 08/22/20] metoprolol tartrate 100 mg tablet 100 mg PO BID #180 tab 04/18/20 [Rx Confirmed 08/22/20] potassium chloride 10 mEq tablet,extended release(part/cryst) 10 meq PO DAILY #90 tab 04/18/20 [Rx Confirmed 08/22/20] verapamil 120 mg tablet,extended release 120 mg PO DAILY #90 tab 05/28/20 [Rx Confirmed 08/22/20] hydrochlorothiazide 25 mg tablet 25 mg PO QDAY #90 tab 06/05/20 [Rx Confirmed 08/22/20] ramipril 10 mg capsule 10 mg PO QDAY #90 cap 06/24/20 [Rx Confirmed 08/22/20] [facility] Medical History Essential hypertension (Chronic) Long-term use of high-risk medication (Chronic) Hyperlipidemia (Chronic) Bipolar disorder (Chronic) Non-rheumatic aortic stenosis (Chronic) Obstructive sleep apnea (Chronic) Secondary pulmonary arterial hypertension (Chronic) GERD (gastroesophageal reflux disease) (Chronic) Non-ST elevation (NSTEMI) myocardial infarction (Chronic 08/21/11) Palpitation (Acute) Persistent atrial fibrillation (Chronic) Dyslipidemia (Chronic) Bicuspid aortic valve (Chronic) Surgical History history of pulmonary vein isolation (Chronic 10/11/06) History of maze procedure (Resolved 10/22/04) H/O discectomy (Resolved) History of right and left heart catheterization (Resolved 03/05/17) Family History Brother CAD (coronary artery disease) from [place] 52 Father Dementia Mother Cancer Social History (Updated 08/22/20 @ 12:[address] Ralph Mg MD) Smoking Status: Former smoker how long ago did patient quit smokin second hand exposure: No alcohol intake: never substance use type: does not use caffeine: No what type of physical activity do you participate in: none ROS Const Const: Negative for fatigue, weakness, frequent falls, excessive sweating, weight gain or weight loss Eyes Eyes: Negative for transient loss of vision, blurry vision or change in vision ENT ENT: Negative for dizziness or balance problems Cardio Chest Pain: No Palpitations: Yes (occasional) feels like its: fast Edema: None Muscle aches with walking: None Resp Respiratory: Positive for SOB with activity (wears oxygen @ 2LNC PRN), SOB at rest (wears oxygen @ 2LNC PRN) and other (wears BIPAP) GI GI: Negative vomiting or vomiting blood/hematemesis : Negative for hematuria Musc Musc: Positive for joint pain (bilat shoulders); negative for muscle aches/ myalgia, muscle weakness or balance problems Skin Skin: Negative non-healing lesions or rash Neuro Neuro: Negative for dizziness, lightheadedness, orthostatic symptoms, frequent falls, weakness or blurry vision Glenn Hematologic/Lymphatic: Negative for easy bleeding Endo Endo: Negative for fatigue or excessive sweating Psych Psych: Negative for anxiety or depression Allergy Allergy/Immunology: Negative for hives, Negative for rash Cardiology Exam Const Appearance: cooperative, healthy appearing, comfortable, no acute distress, well developed and well groomed Nutritional Appearance: well nourished Orientation: alert, oriented x3 and oriented to person Head Head: normal to inspection, normocephalic and atraumatic Ears: hearing grossly normal bilaterally Nose: external nose normal Face and Sinus: face symmetric Eyes Eyelids: eyelids normal Conjunctivae: conjunctivae normal Pupils: PERRL and normal by confrontation EOM: EOM intact bilaterally Neck Neck: normal visual inspection and full ROM Carotids: normal carotid upstroke Chest Chest inspection: normal inspection of the chest, symmetric chest movement and normal respiratory effort Auscultation: Bilateral: Clear to Auscultation Cardio Palpation: normal PMI Rate: regular rate Rhythm: regular rhythm Heart sounds: S1 normal and S2 normal Murmur: Grade 3/6, high pitched, mid systolic, LVOT and sternal notch GI GI: normal to inspection, no hepatosplenomegaly and bowel sounds present Neuro General: alert, awake, oriented x3 and moves all extremities Skin Skin: no rashes or lesions noted Extremities Pulses: Normal: Right Femoral Pulse, Left Femoral Pulse, Right Dorsalis Pedis Pulse, Left Dorsalis Pedis Pulse, Right Posterior Tibial Pulse, Left Posterior Tibial Pulse, Right Radial Pulse, Left Radial Pulse Lower Extremity Edema: None: Bilateral Psych Psychological: normal affect Assessment Plan 1. Persistent atrial fibrillation I48.19 Plan At the present time she appears to be stable with respect to her underlying rate and rhythm. She will continue current medical therapy which does include rate control therapy and anticoagulant therapy. 2. History of maze procedure Z98.890 10/22/2004 at [facility] Plan She is status post an atrial fibrillation ablation procedure as noted above. Again she appears to be stable with her rate and rhythm at this time. She will continue her medical therapy. 3. Bicuspid aortic valve Q23.1 Plan Her bicuspid aortic valve was evaluated in January of this year. The results are as noted. She will continue AHA antibiotic prophylaxis as deemed appropriate and outpatient follow-up. 4. Hyperlipidemia E78.5 Plan Her lipid labs were evaluated in January of this year. Her total cholesterol was 195 with an LDL of 109 and an HDL of 70. Her triglycerides were 79. She will continue medical management and follow-up as deemed appropriate. 5. Essential hypertension I10 Plan Her blood pressure appears to be under reasonably good control. She will continue medical therapy and follow-up. Plan Detail Additional Comments Thank you for allowing me to participate in the care of your patient. Please don't hesitate to call if any issues arise. This note was generated using a voice recognition system and there may be incorrect words, spelling or punctuation that were not noted when reviewing the office note prior to saving. Follow Up 6 Months (with PFM) Coding Level of Care Code Off vis,est,level 3 Diagnoses Persistent atrial fibrillation I48.19 History of maze procedure Z98.890 Bicuspid aortic valve Q23.1 Hyperlipidemia E78.5 Essential hypertension I10 Coding Level of Care Code Off vis,est,level 3 Diagnoses Persistent atrial fibrillation I48.19 History of maze procedure Z98.890 Bicuspid aortic valve Q23.1 Hyperlipidemia E78.5 Essential hypertension I10 Supplemental Info Supplemental Information Echocardiogram: 02-15-2020 Interpretation Summary The estimated ejection fraction is 65 %. Stage 1 diastolic dysfunction. Mild (1+) tricuspid valve insufficiency. Right ventricular systolic pressure estimated to be 42 mmHg. Mild pulmonary hypertension. There is fusion between the right and left coronary cusps, making this a functionally bicuspid aortic valve. Peak aortic valve gradient 28 mmHg. Mean aortic valve gradient 17 mmHg. Calculated aortic valve area (continuity equation) is 1.5 cm2. Moderate aortic stenosis. Bicuspid aortic valve. Compared to echo report dated 10/26/2018, LV function has remained the same, RVSP has increased from 31 to 42 mmHg. Aortic valve gradient has remained about the same. Labs LDL Cholesterol 109 mg/dL (0-130) 02/02/20 HDL Cholesterol 70 mg/dL (40-) 02/02/20 Triglycerides 79 mg/dL (-199) 02/02/20 VLDL Cholesterol 16 mg/dL (5-40) 02/02/20 Diagnostics Echocardiogram 02/15/20 Chest X-Ray 09/17/16 Pulmonary Pulmonary Function Test 07/01/20 Pulmonary Exercise Test 07/04/20 08/22/20 1224 <Electronically signed by Ralph Mg MD> Date Ralph Stringer Signature: Date (if applicable) CC: DO Lydia Martinez Start: 07-09-2020 End: 07-09-2020 Pulmonary Visit Report Comments: See Note; NOTES: [facility] Pulmonary Medicine of [address] [place] [address] OFFICE VISIT Date of Service: 07/09/20 MR#: [id number] Acct: [id number] Name: ADRIANA DILL Rep #: [id number] : 1955 Provider: Dr. Ernesto Webster MD Age/Sex: 65/F Location: [facility] Status: Signed Assessment Plan Problems 1. Obstructive sleep apnea syndrome G47.33 2. Secondary pulmonary arterial hypertension I27.21 3. Bicuspid aortic valve Q23.1 Plan Patient is reporting a highly variable respiratory status. Patient's NIOX is within normal limits at this time, making asthma unlikely. Patient does have a bicuspid aortic valve with increasing pulmonary artery pressures. Clinical suspicion for pulmonary edema leading to variable respiratory status. Stressed to the patient the importance of compliance with MEGHAN therapy and low-salt diet to avoid future complications. Patient does not appear to have significant aortic stenosis to require replacement at this time given the echo completed in January of this year. Will obtain a walking oximetry to be sure patient is not experiencing exertional hypoxemia. Obtain walking oximetry. Flu shot today. Supplemental oxygen if indicated. Encourage BiPAP compliance with low-salt diet. Orders Orders: NIOX Today G47.33, I27.21 Simple Pulmonary Exercise Test Today I27.21 HPI 1 Y FU: Chief Complaint: Shortness of breath on exertion Details: Patient is a 65-year-old female, currently under the care of Dr. Marte, who presents for evaluation secondary to increased shortness of breath on exertion. Since last visit, patient states that she was seen in the ER secondary to a fall leading to rib bruising. Patient is also been placed on prednisone secondary to shoulder pain, but has not had any hospitalizations or prednisone for breathing issues. Patient reports that she has been compliant with MEGHAN therapy. Patient states she can take this off overnight unbeknownst to her self. Patient states she does benefit from therapy and can tell when she wears it for an increased length of time overnight. Patient does have supplemental oxygen at home, but normally only uses this with her MEGHAN therapy. Patient has noticed lower saturations while sitting at the desk. Patient states her saturations can be in the low 90s without any exertion on certain days. This does change to 94% on other days and patient is unaware of any correlation. Patient does report significant change in weight on day of day basis. Patient has not noted a lot of lower extremity edema, but readily admits that she eats a lot of salt on a daily basis. 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 Testing personally reviewed with the patient Compliance report (June 2020): Attempted therapy 93% of the time, but achieved greater than 4 hours only 80% of the time for an average of 6 hours 25 minutes on BiPAP 16/12 cmH2O with a residual AHI of 3.2 and improving leak Complete PFT (07/01/2020): Mild restrictive ventilatory defect with reduction diffusion capacity that is out of proportion and some worsening in spirometry compared to previous study in 2018 (FVC 59%, FEV1 62%, TLC 75%, DLCO 49%) Intake Vital Signs 07/09/20 Height 5 ft 4 in 07/09/20 Weight: 104.326 kg 07/09/20 BP 132/89 H 07/09/20 Blood Pressure Location Lt brachial 07/09/20 Position Sitting 07/09/20 Respiration 18 07/09/20 Pulse 71 07/09/20 Pulse Source Monitor 07/09/20 Temp 36.3 C L 07/09/20 Temperature Source Tympanic 07/09/20 Pulse Oximetry (%) 91 07/09/20 Oxygen Delivery Method room air Intake Visit Reasons: 1 Y FU DME Vendor: Kevin Allergies No Known Allergies Allergy (Verified 07/09/20 07:36) Medications Lamotrigine [Lamictal] 200 mg PO DAILY 12/17/14 [History Confirmed 07/09/20] trazodone 100 mg tablet 200 mg PO DAILY tab 10/18/17 [History Confirmed 07/09/20] sertraline 100 mg tablet 100 mg PO BID tab 10/19/17 [History Confirmed 07/09/20] cholecalciferol (vitamin D3) 25 mcg (1,000 unit) capsule 1,000 unit PO DAILY 10/27/18 [History Confirmed 07/09/20] venlafaxine 37.5 mg tablet,extended release 24 hr 37.5 mg PO DAILY 10/27/18 [History Confirmed 07/09/20] coenzyme Q10 100 mg capsule 100 mg PO DAILY 06/05/19 [History Confirmed 07/09/20] multivitamin 1 tab PO DAILY 06/05/19 [History Confirmed 07/09/20] apixaban 5 mg tablet 5 mg PO BID #60 tab 12/29/19 [Rx Confirmed 07/09/20] ezetimibe 10 mg tablet 10 mg PO QDAY #90 tab 01/26/20 [Rx Confirmed 07/09/20] gemfibrozil 600 mg tablet 600 mg PO BID #180 tab 01/26/20 [Rx Confirmed 07/09/20] metoprolol tartrate 100 mg tablet 100 mg PO BID #180 tab 04/18/20 [Rx Confirmed 07/09/20] potassium chloride 10 mEq tablet,extended release(part/cryst) 10 meq PO DAILY #90 tab 04/18/20 [Rx Confirmed 07/09/20] Levofloxacin 500 mg PO DAILY 04/29/20 [History Confirmed 07/09/20] verapamil 120 mg tablet,extended release 120 mg PO DAILY #90 tab 05/28/20 [Rx Confirmed 07/09/20] hydrochlorothiazide 25 mg tablet 25 mg PO QDAY #90 tab 06/05/20 [Rx Confirmed 07/09/20] ramipril 10 mg capsule 10 mg PO QDAY #90 cap 06/24/20 [Rx Confirmed 07/09/20] [facility] Medical History Long-term use of high-risk medication [...] History Brother CAD (coronary artery disease) from [place] age 52 Father Dementia Mother Cancer Social History (Updated 07/09/20 @ 09:[address] Ernesto Webster MD) Smoking Status: Former smoker how long ago did patient quit smokin second hand exposure: No alcohol intake: never substance use type: does not use caffeine: No what type of physical activity do you participate in: none Review of Systems Const CONSTITUTIONAL: No anorexia, No body ache, No chills, No daytime sleepiness, No fever(s), No night sweats, No stops breathing during sleep, No weight loss, No weight gain, No sleeping in chair, No orthopnea, No fatigue, No headache(s), No frequent colds, No seasonal allergies, No other EETM Ear Nose Throat Mouth: No hoarseness, No Dry mouth in morning, No change in vision, No itchy eyes, No eye pain, No Swallowing Difficulty, No ear pain, No nose bleed, No headache(s), No mouth pain, No nasal congestion, No nasal discharge, No sinus pain, No sinus pressure, No sore throat, No other Cardio Cadriovascular: No chest pain, No chest pain at rest, No chest pain with activity, No irregular heart rhythm, No shortness of breath when lying down, No palpitations, No other Resp Respiratory: Yes as per HPI, No shortness of breath at rest, No pain with cough, No chest congestion, No cough, No chest tightness, No pain on inspiration, No Inhalers, No Increase use of Rescue Inhalers, No snoring, No apnea, No other Gastro Gastrointestional: Negative bloody stools, change in appetite, difficulty swallowing, reflux, hematemesis, melena stool, loose stool, constipation or other Genitourinary: Negative blood in urine, nocturia, pain with urination or other Musc Musculoskeletal: Negative body pain, back pain, neck pain or other Skin/Breast Skin/Breast: No dry skin, No itching, No unusual bruising, No breast lump, No other Neuro Neurological: Negative restless legs, confusion, weakness or other Psych Psychocological: Negative abnormal sleep pattern, anxiety, thoughts of hurting self/others, hopelessness or other Lymph Lymphatic: No easy bleeding, No easy bruising, No other Exam Const Constitutional: Positive conversant, cooperative, in no acute respiratory distress, healthy appearing, well developed, well nourished and good hygiene; negative wearing supplemental oxygen or ill appearing Head Head: Yes normocephalic, Yes atraumatic Eyes Eye: Positive clear conjunctiva; negative nystagmus, scleral abnormality or cataract present Ears Ear: Positive hearing normal and external ears normal; negative hard of hearing Nose Nose: Yes external nose normal Mouth Mouth: Positive oral mucosae normal, no lesions, crowded posterior oropharynx and post nasal drip; negative malodorous breath or oral thrush present Mallampati Score: III: Mallampati Score Neck Neck: Positive normal visual inspection, full ROM, trachea midline and female neck greater than 37 cm (15 in); negative lymphadenopathy or JVD Chest Wall Chest: Positive normal inspection of the chest and symmetric chest movement; negative crepitus or tenderness Resp lung sounds: Positive clear to auscultation, diminished, normal expiratory time and normal respiratory effort; negative wheezes, wheeze present on forced exhalation, rhonchi, rales, dullness to percussion or use of accessory muscles Cardio Cardiac: Positive regular rate, regular rhythm, S1 normal, S2 normal and murmur murmur: Positive RUSB, LUSB and systolic; negative rub or gallop GI GI: Positive normal to inspection; negative distended, ascites or epigastric tenderness Genitourinary: Positive deferred Musc Musculoskeletal: Positive steady gait; negative using an assistive device for ambulation, kyphosis or scoliosis Skin Pulmonary Skin Exam: Positive intact; negative lesion, rash, ulcers, erythema, scaly or dermal atrophy Pulses Pulse: Yes radial pulses present Extremities Extremities: Yes capillary refill normal, No clubbing, No cyanosis, Yes edema (Trace lower extremity), No stasis dermatitis Neuro Neurologic: Yes no focal neuro deficits, Yes conversant, Yes cooperative, Yes normal cognition, Yes normal coordination, Yes normal concentration, Yes understands questions, No tremor Lymph Lymphatic: No lymphadenopathy, No tenderness, No cervical adenopathy Psych Appearance: Positive grossly normal, eye contact and well kempt Mental Status: Positive mental status grossly normal Mood: Positive congruent mood Affect: Positive normal affect Office Procedures NIOX NIOX Result NIOX: 17 Coding Level of Care Code Off vis,est,level 4 Diagnoses Obstructive sleep apnea syndrome G47.33 Secondary pulmonary arterial hypertension I27.21 Bicuspid aortic valve Q23.1 07/09/20 0924 <Electronically signed by Ernesto Webster MD> Date Ernesto Webster MD Cosigner Signature: Date (if applicable) CC: Dr. Lydia Marte, DO; MD Lydia Tolbert Start: 07-04-2020 End: 07-04-2020 6 Minute Walk Test Comments: See Note; NOTES: [facility] Pulmonary Services/Neurology [address] [place] [address] MR#: [id number] Acct: [id number] Name: ADRIANA DILL Kenna Rep #: [id number] : 1955 65 From: Ernesto Webster MD Referring Dr: Yuni Banks NP [employer] SAL[employer] CONSULTANT-C Status: REG CLI Location: PSN Date: Sex: F C PSN 6 Minute Walk Test - 6 Minute Walk Test 6 Minute Walk Test: 6 Minute Walk Test PSN:6-Minute Walk Test Start: 07/04/20 08:54 Freq: Status: Active Protocol: [id number].[id number] Document 07/04/20 08:54 [facility] (Rec: 07/04/20 09:07 [facility] [id number]) 6 Minute Walk Test Date Performed 07/04/20 Time Performed 08:30 Height 5 ft 4 in Weight: 99.337 kg Weight in Pounds 219.[address]: Yuni Banks NP Assistive device used: None Pre-test Oxygen Delivery Method Room Air Pulse Ox (%) 93 Pulse Rate (60-100 beats/min) 65 Dyspnea Leigha Scale (0-10) 0 1st minute Oxygen Delivery Method Room Air Pulse Ox (%) 91 Pulse Rate (60-100 beats/min) 107 H Number of Rests Taken 0 2nd minute Oxygen Delivery Method Room Air Pulse Ox (%) 89 Pulse Rate (60-100 beats/min) 107 H Number of Rests Taken 0 3rd minute Oxygen Delivery Method Room Air Pulse Ox (%) 89 Pulse Rate (60-100 beats/min) 92 Number of Rests Taken 1 4th minute Oxygen Delivery Method Room Air Pulse Ox (%) 88 Pulse Rate (60-100 beats/min) 82 Number of Rests Taken 1 5th minute Oxygen Flow Rate (L/min) (L/min) 2 Oxygen Delivery Method Nasal Cannula Pulse Ox (%) 93 Pulse Rate (60-100 beats/min) 75 6th minute Oxygen Flow Rate (L/min) (L/min) 2 Oxygen Delivery Method Nasal Cannula Pulse Ox (%) 92 Pulse Rate (60-100 beats/min) 85 Dyspnea Leigha Scale (0-10) 1 Exertion Leigha Scale (6-20) 14 Number of Rests Taken 0 Post-test Oxygen Delivery Method Room Air Pulse Ox (%) 95 Pulse Rate (60-100 beats/min) 69 Full Laps Walked 13 Partial Lap, Number of Tiles Walked 0 Total Distance Walked (ft) 767 07/04/20 09:01 Cardiopulmonary Services by Nicole Flynn PATIENT 6MW TEST WAS PERFORMED WITH PT ON ROOM AIR UNTIL MINUTE 4, AT WHICH TIME SHE WAS AND REMAINED 88%. OXGEN PLACED AT 2LPM AND REMAINED SUCH FOR DURATION OF TESTING. SPO2 92-93% 2LPM WITH EXERTION. INFO SENT TO [facility] OFFICE FOR ORDER AND ARRANGE PT HOME SET UP. PT AWARE. SHE STATES HER OFFICE F/U WITH [facility] IS NEXT WEEK Initialized on 07/04/20 09:01 - END OF NOTE - Interpretation Interpretation: The patient was noted to be 93% on room air at rest. The patient did desaturate in the fourth minute of walking to 88% was placed on 2 L nasal cannula with improvement to 95%. The patient then was asked to complete the 6-minute ambulation. In total, the patient traveled 767 feet over the course of 6 minutes with no assistive devices, but 2 breaks. These findings are consistent with a respiratory limitation exercise tolerance. - Recommendations Recommendations: No supplemental oxygen is indicated at rest, but patient should be using 2 L nasal cannula oxygen with any exertion. 07/04/20 1551 <Electronically signed by Ernesto Webster MD> Date Ernesto Webster MD CC: Date Dictated: 07/04/201530 Date Transcribed: 07/04/201530 Hand Hardener: Dr. Ernesto Webster MD Signed Lydia Marte Start: 07-01-2020 End: 07-01-2020 Pulmonary Function Report Comp Comments: See Note; NOTES: [facility] Pulmonary Services/Neurology [address] [place] [address] MR#: [id number] Acct: [id number] Name: ADRIANA DILL Rep #: [id number] : 1955 65 From: Ernesto Webster MD Referring Dr: Yuni Banks NP [employer] SAL[employer]SULTANT-C Status: REG [facility] Location: [facility] Date: 07/01/20 Sex: F C COMPLETE PULMONARY FUNCTION TEST INTERPRETATION Brief HPI: Patient is a 65 year old female, currently under the care of myself, who presents to [facility] for complete pulmonary function tests secondary to diagnosis of dyspnea. Respiratory therapist reports good effort and reproducible results. Interpretation: Forced expiration spirometry shows no large airways obstructive ventilatory defect with an FEV1 of 62% predicted. There is no significant bronchodilator response by strict ATS criteria. Spirograms are of good quality and plateau normally. The respiratory flow volume loop shows a normal pattern. Lung volumes by body plethysmography show a decreased total lung capacity at 3.64 L, 75% predicted. All other lung volumes are within normal limits. Diffusion capacity by carbon monoxide is decreased at 49% predicted. The airway resistance is normal. Compared to previous pulmonary function tests from 12/21/2017, there is been a significant reduction in FVC and FEV1 by 22% and 18% respectively. Impression: Mild restrictive ventilatory defect with reduction in diffusion capacity that is out of proportion. Patient has had a decrease in spirometry compared to previous. 07/01/20 1418 <Electronically signed by Ernesto Webster MD> Date Ernesto Webster MD CC: [employer] SAL[employer] CONSULTANT-C Yuni Banks; Dr. Ernesto Webster MD; Dr. Lydia Marte, DO Date Dictated: 07/01/201111 Date Transcribed: 07/01/201111 Hand Hardener: BA Signed Lydia Marte Start: 05-16-2020 End: 05-16-2020 Shoulder min 2 Views Comments: See Note; NOTES: [facility] Imaging Services [address] [place] [id number] Shoulder min 2 Views MR#: [id number] Acct: [id number] Name: FUENTESADRIANA E Rep #: [id number] : 1955 F 65 From: Jake Patterson i, MD PCP: Dr. Lydia Marte, Status: REG CLI Study: Shoulder min 2 Views Date of Exam: 05/16/20 Exam# [id number] Ordering Dr: Lydia Marte DO STUDY: X-RAY - LEFT SHOULDER REASON FOR EXAM: Female, 65 years old. CHRONIC PAIN TECHNIQUE: 5 view(s) of the shoulder. COMPARISON: None. FINDINGS: There is moderate degenerative arthrosis of the glenohumeral articulation. Normal acromioclavicular joint. Normal acromion. Normal humeral head and visualized proximal humerus. The soft tissue structures are unremarkable. Normal visualized pulmonary apex. 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 Electronically Signed: Jake Varela MD at 22:41 EDT , Service support , CC: Dr. Lydia Marte DO Hand Hardener: Signed Lydia Marte Work Phone: Start: 04-29-2020 End: 04-30-2020 Emergency Department Summary Comments: See Note; NOTES: [facility] Medical Records Department [address] [place] [address] Emergency Department Summary 04/29/20 MR#: [id number] Acct: [id number] Name: ADRIANA DILL Rep #: [id number] : 1955 65 From: Franc Hodge DO PCP: Dr. Lydia Marte DO Status:DEP ER - ER Visit Summary Date of Service: 04/29/20 Chief Complaint: Hematuria History of Present Illness: The patient is a 65 F who presents with hematuria that is been getting worse over the past 4 days. Patient states she is currently being treated for urinary tract infection. Patient is on Levaquin. Patient states her urine is dark red. Patient admits to some pain in her flanks bilaterally. Patient states it is aching. Patient states it is worse with prolonged sitting. Patient denies any fevers or chills. Patient denies any nausea or vomiting. Patient does admit to some dysuria but states it is improving. Physical Examination: Vital signs are stable. Patient is afebrile. Patient is in no acute distress. Oral mucosa is pink and moist. Neck is supple. Trachea is midline. There is no JVD. Heart was irregularly irregular. Lungs are clear and equal bilaterally. Abdomen is soft. Bowel sounds are normal. There is bilateral CVA tenderness. There is no rebound or guarding noted. Cranial nerves II through XII are intact. There are no focal motor or sensory deficits noted. Extremities are intact. There is no calf tenderness or edema. Test Results: CBC shows a mild leukocytosis of 12.2. Hemoglobin and hematocrit are normal. PT with INR and PTT were normal. Urinalysis shows leukocyte esterase of 25 with positive nitrates. Occult blood was 250. There were 0-5 white blood cells and greater than 100 red blood cells. A urine culture was sent. Emergency Department Course and Treatment: Patient was feeling better on reevaluation. Patient was advised to continue her Levaquin as prescribed until gone. Patient was instructed to drink plenty of fluids. Patient was instructed to follow-up with her primary care physician in 5 to 7 days. Patient understood and was agreeable with the plan. All questions were answered. Disposition: Discharge home Impression: Hemorrhagic cystitis This note was generated with [employer] dictation software. It may contain incorrect words, spelling, and punctuation that were not noted in review of the chart prior to signing ED Disposition - Plan for ED Patient: Disposition: Home or Assisted Living Diagnosis: Hemorrhagic cystitis Instructions: ED Pyelonephritis Female Adult Referrals: Lydia Marte DO [Primary Care Provider] - 5-7 Days Additional Instructions: Continue your Levaquin prescription until it is gone. What to do if you have Problems For any increased pain, shortness of breath, bleeding, nausea or vomiting, chest pain, or any unexpected problems, contact your Primary Care Provider. Call [facility] ([phone]) or report to the closest Emergency Room. Call 911 if necessary. 04/30/20 0123 <Electronically signed by Franc Hodge DO> Date Franc Hodge DO Cosigner Signature (If Indicated): Date CC: DO Lydia Martinez Start: 02-15-2020 End: 02-16-2020 Echo Complete W/ Contrast Comments: See Note; NOTES: [facility] Cardiovascular Services [address] [place] [address] Echo Complete W/ Contrast 02/15/20 1005 MR#: [id number] Acct: [id number] Name: ADRIANA DILL Rep #: [id number] : 1955 65 From: Stanley Marcos MD Attending Dr: Dr. Stanley Marcos MD Status: REG CLI Ordering Dr: Stanley Marcos MD Date: 02/15/20 Location: [facility] Sex: F C Admitted: Reason For Study: BICUSPID AV Procedure This was a 2D Doppler, Color Flow transthoracic echocardiogram. The study was technically difficult. Contrast injection was performed. Exam performed in department. Left Ventricle Normal size and thickness. The estimated ejection fraction is 65 %. Stage 1 diastolic dysfunction. No regional wall motion abnormalities noted. Right Ventricle Mildly dilated right ventricle. Normal systolic function. Atria Normal left atrium. Normal right atrium. Normal atrial septum. Mitral Valve Mild diffuse mitral valve thickening. Tricuspid Valve Normal tricuspid valve. Mild (1+) tricuspid valve insufficiency. Right ventricular systolic pressure estimated to be 42 mmHg. Mild pulmonary hypertension. Aortic Valve There is fusion between the right and left coronary cusps, making this a functionally bicuspid aortic valve. Bicuspid aortic valve. Peak aortic valve gradient 28 mmHg. Mean aortic valve gradient 17 mmHg. Calculated aortic valve area (continuity equation) is 1.5 cm2. Moderate aortic stenosis. Pulmonic Valve Normal pulmonic valve. Great Vessels Normal aortic root. Normal arch. Normal inferior vena cava. Inferior vena cava collapse with sniff. Pericardium/Pleural No pericardial effusion. Medication 20 gauge I.V. with prn adaptor inserted into right arm. Diluted definity 1.5ml given slow IV push to enhance endocardial definition. MMode/2D Measurements Calculations LVIDd: 4.7 cm IVSd: 0.92 cm LVOT diam: 2.2 cm LVIDs: 3.0 cm LVPWd: 0.94 cm RVDd: 3.7 cm FS: 35.4 % LVOT area: 3.9 cm2 Ao root diam: 4.3 cm LAV(MOD-bp): 61.1 ml LA A4 area: 17.8 cm2 LAV(MOD-bp) Indexed: 30.0 ml/m2 LAV(MOD-sp2): 63.5 ml LAV(MOD-sp4): 52.0 ml LA dimension(2D): 4.3 cm RA A4 area: 11.6 cm2 Time Measurements MV dec time: 0.17 sec Doppler Measurements Calculations MV E max brina: 95.9 cm/sec Lat Peak E' Brina: 11.9 cm/sec Med Peak E' Brina: 5.6 cm/sec MV A max brina: 52.9 cm/sec E/E' lat: 8.1 E/E' med: 17.3 MV E/A: 1.8 Ao V2 max: 266.0 cm/sec LV V1 max: 97.1 cm/sec SV(LVOT): 98.4 ml Ao max P.3 mmHg LV V1 max P.8 mmHg Ao V2 mean: 196.9 cm/sec LV V1 mean P.5 mmHg Ao mean P.9 mmHg LV V1 mean: 77.7 cm/sec Ao V2 VTI: 64.4 cm LV V1 VTI: 25.0 cm CELESTE(I,D): 1.5 cm2 CELESTE(V,D): 1.4 cm2 PA V2 max: 86.5 cm/sec PI end-d brina: 146.8 cm/sec TR max brina: 304.1 cm/sec TR max P.1 mmHg Interpretation Summary The estimated ejection fraction is 65 %. Stage 1 diastolic dysfunction. Mild (1+) tricuspid valve insufficiency. Right ventricular systolic pressure estimated to be 42 mmHg. Mild pulmonary hypertension. There is fusion between the right and left coronary cusps, making this a functionally bicuspid aortic valve. Peak aortic valve gradient 28 mmHg. Mean aortic valve gradient 17 mmHg. Calculated aortic valve area (continuity equation) is 1.5 cm2. Moderate aortic stenosis. Bicuspid aortic valve. Compared to echo report dated 10/26/2018, LV function has remained the same, RVSP has increased from 31 to 42 mmHg. Aortic valve gradient has remained about the same. _ Ordering Physician: Stanley Marcos Referring Physician: LYDIA MARTE Performed By: Roselia Toledo, YESSY, RVT 02/16/20 1346 Date Stanley Marcos MD CC: Dr. Stanley Marcos MD; Dr. Lydia Marte, DO Date Dictated: 02/15/20 1005 Date Transcribed: 02/16/20 1346 Hand Hardener: Signed Lydia Marte Start: 01-26-2020 End: 01-26-2020 /ROBERT.VV Comments: See Note; NOTES: [place] [address] [address] [address] OFFICE VISIT Date of Service: 01/26/20 MR#: [id number] Acct: [id number] Patient: ADRIANA DILL Rep #: [id number] : 1955 Provider: Brittany Oleary Age/Sex: 65/F [place] [facility] Status: Signed Intake Vital Signs 01/26/20 Height 5 ft 4 in 01/26/20 Weight: 209 lb 01/26/20 BMI 35.9 01/26/20 BP 137/77 H 01/26/20 Blood Pressure Location Lt brachial 01/26/20 Position Sitting 01/26/20 Respiration 20 H 01/26/20 Pulse 54 L 01/26/20 Pulse Source Monitor 01/26/20 Pulse Oximetry (%) 93 01/26/20 Oxygen Delivery Method room air 01/26/20 Comment pt did vitals on home BP monitor and pulse ox 01/26/20 BMI 37.9 Intake Visit Reasons: PHONE 6 M FU Chief Complaint: Routine f/u Space Controller Required: No Is patient in pain?: No Allergies No Known Allergies Allergy (Verified 06/21/19 08:09) Medications Lamotrigine [Lamictal] 200 mg PO DAILY 12/17/14 [History Confirmed 01/26/20] trazodone 100 mg tablet 200 mg PO DAILY tab 10/18/17 [History Confirmed 01/26/20] sertraline 100 mg tablet 100 mg PO BID tab 10/19/17 [History Confirmed 01/26/20] cholecalciferol (vitamin D3) 25 mcg (1,000 unit) capsule 1,000 unit PO DAILY 10/27/18 [History Confirmed 01/26/20] venlafaxine 37.5 mg tablet,extended release 24 hr 37.5 mg PO DAILY 10/27/18 [History Confirmed 01/26/20] coenzyme Q10 100 mg capsule 100 mg PO DAILY 06/05/19 [History Confirmed 01/26/20] hydrochlorothiazide 25 mg tablet 25 mg PO QDAY #90 tab 06/05/19 [Rx Confirmed 01/26/20] metoprolol tartrate 100 mg tablet 100 mg PO BID #180 tab 06/05/19 [Rx Confirmed 01/26/20] multivitamin 1 tab PO DAILY 06/05/19 [History Confirmed 01/26/20] potassium chloride 10 mEq tablet,extended release(part/cryst) 10 meq PO DAILY #90 tab 06/05/19 [Rx Confirmed 01/26/20] ramipril 10 mg capsule 10 mg PO QDAY #90 cap 06/05/19 [Rx Confirmed 01/26/20] verapamil 120 mg tablet,extended release 120 mg PO DAILY #90 tab 06/05/19 [Rx Confirmed 01/26/20] apixaban 5 mg tablet 5 mg PO BID #60 tab 12/29/19 [Rx Confirmed 01/26/20] ezetimibe 10 mg tablet 10 mg PO QDAY #90 tab 01/26/20 [Rx Confirmed 01/26/20] gemfibrozil 600 mg tablet 600 mg PO BID #180 tab 01/26/20 [Rx Confirmed 01/26/20] Is last menstrual period known: No Post menopausal: Yes Patient : No PFSH Medical History Long-term use of high-risk [...] History Brother CAD (coronary artery disease) from [place] age 52 Father Dementia Mother Cancer Social History (Updated 01/26/20 @ 12:[address] Stanley Marcos MD) Smoking Status: Former smoker how long ago did patient quit smokin second hand exposure: No alcohol intake: never substance use type: does not use caffeine: No what type of physical activity do you participate in: none HPI HPI Chief Complaint: Routine f/u Details: Patient was informed that this visit will be billed to patient. This visit was conducted during - pandemic. Details: Referring physician: Dr. Jeanne Quinones It was a pleasure seeing your patient, Adriana Dill, by telephone office visit today. She Is a 65-year-old female and is returning for followup of her atrial fibrillation status post pulmonary vein isolation at the [facility] in 2003, mild coronary disease status post non ST elevation myocardial infarction status post catheterization at [facility] in August 2011, and bicuspid aortic valve with mildly dilated ascending aorta and mild aortic insufficiency by echocardiogram dated 07/2012. CT scan of the chest demonstrated no significant aortic dilatation according to the report. Prior to several visits ago, the patient had had progressively worsening dyspnea on exertion, shortness of breath, positional lightheadedness and dizziness, and hypotension. She has had no presyncope or syncope episodes, and no anginal symptoms. Patient got fairly winded just coming in from the parking lot today despite taking the elevator. She denies any sentinel events. patient underwent left and right heart catheterization at [facility] by myself on 03/05/17 which demonstrated [...] is taking and tolerating her medicines well. At our last visit, the patient complained of intermittent palpitations, but actually are occurring less frequently than our last visit. She did visit with Dr. Soni, who made no changes to her medications [...] or anginal symptoms with her palpitations. Her previous echocardiogram dated 10/14/17 showed an EF of 65%, RVSP of 32 mmHg, stable bicuspid aortic valve with a peak/mean gradient of 32/17 mmHg. most recent echocardiogram dated 10/26/18 showed the following: The estimated ejection fraction is 65 %. Normal diastology for age.Right ventricular systolic pressure estimated to be 31 mmHg.Bicuspid aortic valve. 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 Mild to moderate aortic stenosis. Compared to echo report dated 10/07/2017, no appreciable changes noted. Subsequent surveillance echocardiogram dated 10/26/2018 showed the following: The estimated ejection fraction is 65 %. Normal diastology for age. Right ventricular systolic pressure estimated to be 31 mmHg. Bicuspid aortic valve. 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 Mild to moderate aortic stenosis. Compared to echo report dated 10/07/2017, no appreciable changes noted. Since her last visit, the patient is doing extremely well. She denies any chest pain, angina, shortness of breath or dyspnea on exertion dissimilar from her previous visit. She maintains her Eliquis without difficulty. Patient can tell when she goes in and out of atrial fibrillation, and has had no events of atrial fibrillation. She is compliant with her CPAP. She has no longer on oxygen and is doing quite well. Patient did have an episode of tachycardia lasting about 30 minutes at a rate of around 150 bpm, about 1 month ago, but none subsequent to that or prior to that. She did not seek medical attention or notify our office. Her blood pressure at home during this teleconference is 137/77 heart rate is 54-60 and regular. O2 sats are 93% on room air. Her physical exam Demonstrates diminished carotid pulses [...] showing LDL 111 and HDL of 68. Repeat lipids are pending. ROS Const Constitutional: Positive for other (1 month ago hr was 150 bpm, lasted 30 min. None since.); no anorexia, body ache, chills, excessive sweating, fatigue, fever(s), frequent falls, headache(s), decreased energy, malaise, night sweats, snoring, weakness, weight change, sleep problems, abnormal sleep pattern or change in appetite Eyes Eyes: No blurry vision, change in vision, double vision, discharge, dry eyes, bulging eyes, floaters, visual disturbances, eye pain, light sensitivity, spots in vision, tunnel vision or other ENT ENT: No abnormal hearing, ear pain, ear discharge, ear pressure, hearing loss, tinnitus, dizziness/vertigo, balance problems, nosebleed/epistaxis, nasal congestion, nasal obstruction, nose pain, sinus pressure, sinus pain, nasal discharge, post nasal drip, headache(s), facial pain, dental pain, dry mouth, difficulty swallowing, bad breath, hoarseness, lip swelling, mouth lesions, mouth pain, neck pain, sore throat, tongue swelling, throat swelling or other Resp Respiratory: No cough, change in phlegm color, chest congestion, excessive phlegm production, hemoptysis, pain on inspiration, shortness of breath, pain with cough, snoring, stridor, wheezing or other Cardio Cardiology: Positive for palpitations; no chest pain at rest, chest pain with exertion, leg pain with exertion, excessive sweating, shortness of breath, dyspnea on exertion, generalized swelling, irregular heart rhythm, lightheadedness, orthopnea, radiating jaw, neck or arm pain, fast heart rate, slow heart rate or other Gastro GI: No abdominal pain, belching, bloating, change in bowel habits, change in stool character, coffee ground emesis, constipation, cramping, diarrhea, heartburn, difficulty swallowing, feeling full early, excessive flatus, incontinent of stools, Vomiting blood/hematemesis, blood in stool, loose stools, Black,tarry stools, nausea/dyspepsia, pain with swallowing, vomiting or other Musc Musculoskeletal: No abnormal walking, joint pain, back pain, deformity, joint swelling, limited range of motion, loss of height, muscle cramps, muscle weakness, decreased muscle mass, body aches, neck pain, numbness, radiating pain into limb, stiffness, tingling or other Skin Skin: No acne, hair loss, change in hair, nail changes, boil, change in skin color, dry skin, redness, excessive hair growth, yellowing of the skin, lesions, itching, rash, skin pain, skin ulcer, sores, skin swelling, wounds or other Breast Breast: No other Neuro Neurology: No abnormal walking, abnormal hearing, abnormal movements, abnormal speech, behavioral changes, confusion, unsteady gait/balance, dizziness, weakness, frequent falls, headache(s), lack of coordination, loss of vision, memory loss, numbness, tingling, visual disturbances, restless legs, fainting, tremor(s) or other Psych Psychiatric: No abnormal sleep pattern, No lack of enjoyment, No anxiety, No behavioral changes, No change in appetite, No confusion, No depression, No difficulty concentrating, No hopelessness, No irritability, No memory loss, No mood swings, No panic attacks, No paranoia, No Thoughts of harming yourself/Others, No hallucinations, No other Endo Endocrine: Positive for change in body appearance, cold intolerance, flushing, heat intolerance, increased thirst/drinking, increased hunger and increased urination; no excessive sweating, fatigue or other Aller/Imm Allergy/Immunologic: No food intolerance, itchy eyes, lip swelling, seasonal allergy symptoms, throat swelling, tongue swelling, hives, wheezing or other Glenn/Lymp Hematologic/Lymphatic: No easy bleeding, easy bruising, enlarged lymph nodes or other Exam Const Other: Pt's physical exam deferred d/t telephone visit during COVID-19 Pandemic [facility] Musculoskeletal: No muscle weakness Details: Details:: Exam was limited due to phone visit with no video. Quality Reporting Medication Reconciliation (CMS 68) apixaban (Eliquis) 5 mg PO BID cholecalciferol (vitamin D3) 1,000 units PO DAILY coenzyme Q10 (Co Q-10) 100 mg PO DAILY ezetimibe (Zetia) 10 mg PO QDAY gemfibrozil 600 mg PO BID hydrochlorothiazide 25 mg PO QDAY lamotrigine 200 mg PO DAILY metoprolol tartrate 100 mg PO BID multivitamin 1 tab PO DAILY potassium chloride ER 10 mEq PO DAILY ramipril 10 mg PO QDAY sertraline 100 mg PO BID trazodone 200 mg PO DAILY venlafaxine ER 37.5 mg PO DAILY verapamil ER 120 mg PO DAILY BMI Screening (CMS 69) Body Mass Index (BMI): 37.9 Tobacco Screening (CMS 138) Smoking Status: Former smoker Assessment Plan 1. Persistent atrial fibrillation I48.19 Plan 1. Atrial fibrillation: Patient had an episode of tachycardia, with a rate around 150 bpm which spontaneously resolved. Other than that the patient is been doing quite well. As this is a 1 off event, we will hold off on adjusting her medications as her heart rate appears to be controlled the majority of the time. She will continue her Eliquis, hydrochlorothiazide, metoprolol, potassium, ramipril and verapamil. I instructed the patient to take an extra verapamil should she have recurrent Palpitations which last more than 1 hour and to notify our office. 2. Bicuspid aortic valve Q23.1 Plan 2. Bicuspid aortic valve: Patient has had no presyncope or syncopal episodes and no sentinel events. She had mild to moderate aortic stenosis by echocardiogram in October 2018. Repeat surveillance echocardiogram is pending. Continue present management 3. Dyslipidemia E78.5 Plan 3. Hyperlipidemia: We are awaiting a repeat lipid profile. Patient is tolerating her gemfibrozil and Zetia well. Continue present management. 4. Return office in 6 months. Telephone time with Cindy [address] Marcos 3 minutes. This note was generated using a voice recognition system and there may be incorrect words, spelling or punctuation that were not noted when reviewing the office note prior to saving. Orders Orders: Lipid Profile 01/25/20 Liver Profile 01/25/20 Plan Detail Other Orders Orders: Echo Complete Today Z79.899 Other Medications Refilled: ezetimibe (Zetia) 10 mg PO QDAY 90 tabs 3RF gemfibrozil 600 mg PO BID 180 tabs 3RF Follow Up +6M (Kaiden) 01/26/20 1259 <Electronically signed by Stanley Marcos MD> Date Stanley Marcos MD Cosign Signature: Date (if applicable) CC: Lydia Newman Start: 06-21-2019 End: 06-21-2019 Pulmonary Visit Report Comments: See Note; NOTES: [facility] [place] [address] [place] [address] OFFICE VISIT Date of Service: 06/21/19 MR#: [id number] Acct: [id number] Name: ADRIANA DILL Rep #: [id number] : 1955 Provider: STEVEN Banks Age/Sex: 64/F Location[place] [facility] Status: Signed Assessment AND Plan 1. Obstructive sleep apnea G47.33 Plan Patient is using and benefiting from Pap therapy. No indication for titration study at this time. Continue to encourage weight loss. Contact the office for any new or worsening symptoms in the meantime. Follow-up in 1 year. 2. BMI 33.0-33.9,adult Z68.33 Plan Continue to encourage weight loss. 3. Secondary pulmonary arterial hypertension I27.21 Plan Stable. Possibly improved? Plan to repeat a pulmonary function test and a pulmonary stress test in 1 year prior to a follow-up with Dr. Webster. She has been encouraged to contact the office with any new or worsening symptoms in the meantime. She was provided with an annual influenza vaccination in the office today. Plan Detail Other Orders Orders: Other Medications Discontinued: Flucelvax Quad [id number] (flu vac qs 2019-20.5 mL IM ONCE 0.5 mL 0RF NS Z23 Asha Yensho 0(4 yr up) CD) Discontinued Reason: Off ice Medication has been Documented as given Follow Up 1 Year (BWA) HPI 6 M FU: Chief Complaint: none HPI Comments Details: This is a 64 year old Very pleasant F, here to follow up for sleep apnea. She is ambulatory and currently on room air. She has not been to the ED or urgent care for any respiratory illnesses since her last office visit. She has not required any antibiotics or prednisone for any breathing problems. Current use of pressure support therapy is on average of 6 hours per night with current settings of 16/12 cmH2O. ADRIANA denies any daytime somnolence, nocturia, snoring through the mask, morning headaches or difficulty with mask leaks, but is experiencing dry mouth in the morning Which she attributes to some of her medications. ADRIANA reports feeling Rested in the morning and Is benefitting from current therapy. Compliance report was reviewed and shows 97% compliance AHI slightly elevated with an average of 4.5 events per hour leaks do not appear to be an issue. Currently she experiences shortness of breath on exertion only but believes this has been improving. She denies any cough, sputum production or hemoptysis. She denies any wheezing, chest tightness, chest pain or palpitations. Intake Vital Signs06/21/19 Height 5 ft 4 in 06/21/19 Weight: 221 lb 6 oz Intake Visit Reasons: 6 M FU [facility] Vendor: [employer] Accompanied by: Self Allergies No Known Allergies Allergy (Verified 06/21/19 08:09) Medications Lamotrigine [Lamictal] 200 mg PO DAILY 12/17/14 [History Confirmed 06/21/19] trazodone 100 mg tablet 200 mg PO DAILY tab 10/18/17 [History Confirmed 06/21/19] sertraline 100 mg tablet 100 mg PO BID tab 10/19/17 [History Confirmed 06/21/19] cholecalciferol (vitamin D3) 1,000 unit capsule 1,000 unit PO DAILY 10/27/18 [History Confirmed 06/21/19] venlafaxine ER 37.5 mg tablet,extended release 24 hr 37.5 mg PO DAILY 10/27/18 [History Confirmed 06/21/19] apixaban 5 mg tablet 5 mg PO BID #60 tab 06/05/19 [Rx Confirmed 06/21/19] coenzyme Q10 100 mg capsule 100 mg PO DAILY 06/05/19 [History Confirmed 06/21/19] ezetimibe 10 mg tablet 10 mg PO QDAY #90 tab 06/05/19 [Rx Confirmed 06/21/19] gemfibrozil 600 mg tablet 600 mg PO BID #180 tab 06/05/19 [Rx Confirmed 06/21/19] hydrochlorothiazide 25 mg tablet 25 mg PO QDAY #90 tab 06/05/19 [Rx Confirmed 06/21/19] metoprolol tartrate 100 mg tablet 100 mg PO BID #180 tab 06/05/19 [Rx Confirmed 06/21/19] multivitamin tablet 1 tab PO DAILY 06/05/19 [History Confirmed 06/21/19] potassium chloride ER 10 mEq tablet,extended release(part/cryst) 10 meq PO DAILY #90 tab 06/05/19 [Rx Confirmed 06/21/19] ramipril 10 mg capsule 10 mg PO QDAY #90 cap 06/05/19 [Rx Confirmed 06/21/19] verapamil ER (SR) 120 mg tablet,extended release 120 mg PO DAILY #90 tab 06/05/19 [Rx Confirmed 06/21/19] [facility] Medical History Long-term use of high-risk medication [...] History Brother CAD (coronary artery disease) from [place] age 52 Father Dementia Mother Cancer Social History (Updated 06/21/19 @ 09:10 by STEVEN Arrieta) Smoking Status: Former smoker how long ago did patient quit smokin second hand exposure: No alcohol intake: never substance use type: does not use caffeine: No what type of physical activity do you participate in: none Review of Systems Const CONSTITUTIONAL: No anorexia, No body ache, No chills, No daytime sleepiness, No fever(s), No night sweats, No stops breathing during sleep, No weight loss, No weight gain, No sleeping in chair, No orthopnea, No fatigue, No headache(s), No frequent colds, No seasonal allergies, No other EETM Ear Nose Throat Mouth: No hoarseness, No Dry mouth in morning, No change in vision, No itchy eyes, No eye pain, No Swallowing Difficulty, No ear pain, No nose bleed, No headache(s), No mouth pain, No nasal congestion, No nasal discharge, No sinus pain, No sinus pressure, No sore throat, No other Cardio Cadriovascular: No chest pain, No chest pain at rest, No chest pain with activity, No irregular heart rhythm, No shortness of breath when lying down, No palpitations, No other Resp Respiratory: Yes as per HPI, No shortness of breath at rest, No pain with cough, No chest congestion, No cough, No chest tightness, No pain on inspiration, No Inhalers, No Increase use of Rescue Inhalers, No snoring, No apnea, No other Gastro Gastrointestional: Negative bloody stools, change in appetite, difficulty swallowing, reflux, hematemesis, melena stool, loose stool, constipation or other Genitourinary: Negative blood in urine, nocturia, pain with urination or other Musc Musculoskeletal: Negative body pain, back pain, neck pain or other Skin/Breast Skin/Breast: No dry skin, No itching, No unusual bruising, No breast lump, No other Neuro Neurological: Negative restless legs, confusion, weakness or other Psych Psychocological: Negative abnormal sleep pattern, anxiety, thoughts of hurting self/others, hopelessness or other Lymph Lymphatic: No easy bleeding, No easy bruising, No other Exam Const Constitutional: Positive conversant, cooperative, in no acute respiratory distress, healthy appearing, well developed, well nourished and good hygiene; negative wearing supplemental oxygen or ill appearing Head Head: Yes normocephalic, Yes atraumatic Eyes Eye: Positive clear conjunctiva; negative nystagmus, scleral abnormality or cataract present Ears Ear: Positive hearing normal and external ears normal; negative hard of hearing Nose Nose: Yes external nose normal Mouth Mouth: Positive oral mucosae normal, no lesions, crowded posterior oropharynx and post nasal drip; negative malodorous breath or oral thrush present Mallampati Score: III: Mallampati Score Neck Neck: Positive normal visual inspection, full ROM, trachea midline and female neck greater than 37 cm (15 in); negative lymphadenopathy or JVD Chest Wall Chest: Positive normal inspection of the chest and symmetric chest movement; negative crepitus or tenderness Resp lung sounds: Positive clear to auscultation, diminished, normal expiratory time and normal respiratory effort; negative wheezes, wheeze present on forced exhalation, rhonchi, rales, dullness to percussion or use of accessory muscles Cardio Cardiac: Positive regular rate, regular rhythm, S1 normal, S2 normal and murmur murmur: Positive RUSB, LUSB and systolic; negative rub or gallop GI GI: Positive normal to inspection; negative distended, ascites or epigastric tenderness Genitourinary: Positive deferred Musc Musculoskeletal: Positive steady gait; negative using an assistive device for ambulation, kyphosis or scoliosis Skin Pulmonary Skin Exam: Positive intact; negative lesion, rash, ulcers, erythema, scaly or dermal atrophy Pulses Pulse: Yes radial pulses present Extremities Extremities: Yes capillary refill normal, No clubbing, No cyanosis, Yes edema (Trace lower extremity), No stasis dermatitis Neuro Neurologic: Yes no focal neuro deficits, Yes conversant, Yes cooperative, Yes normal cognition, Yes normal coordination, Yes normal concentration, Yes understands questions, No tremor Lymph Lymphatic: No lymphadenopathy, No tenderness, No cervical adenopathy Psych Appearance: Positive grossly normal, eye contact and well kempt Mental Status: Positive mental status grossly normal Mood: Positive congruent mood Affect: Positive normal affect Office Meds Flucelvax Quad Performing Provider: STEVEN Arrieta Administered by: Asha Ward on 06/21/19 08:35 Dose Route Admin Location Lot Number Expiration Date NDC Blueprint Trimmer 0.5 mL IM R deltoid [id number] 03/19/20 97407-319-29 SEQIRUS Coding Level of Care Code Off vis,est,level 3 Diagnoses Obstructive sleep apnea G47.33 BMI 33.0-33.9,adult Z68.33 Secondary pulmonary arterial hypertension I27.21 06/21/19 0910 <Electronically signed by Yuni HARRIS> Date Yuni HARRIS Cosigner Signature: Date (if applicable) CC: Lydia Newman Start: 06-05-2019 End: 06-05-2019 Cardiology Visit Report Comments: See Note; NOTES: [facility] [address] [place] [address] OFFICE VISIT Date of Service: 06/05/19 MR#: [id number] Acct: [id number] Name: ADRIANA DILL Rep #: [id number] : 1955 Provider: Stanley Marcos MD Age/Sex: 64/F Location[place] [facility] Status: Signed HPI HPI History of Present Illness Details: Chief Complaint: Routine f/u Details: Details: Details: Referring physician: Dr. Jeanne Quinones It was a pleasure seeing your patient, Adriana Dill, today in our office. She Is a 64-year-old female and is returning for followup of her atrial fibrillation status post pulmonary vein isolation at the [facility] in 2003, mild coronary disease status post non ST elevation myocardial infarction status post catheterization at [facility] in August 2011, and bicuspid aortic valve with mildly dilated ascending aorta and mild aortic insufficiency by echocardiogram dated 07/2012. CT scan of the chest demonstrated no significant aortic dilatation according to the report. Prior to several visits ago, the patient had had progressively worsening dyspnea on exertion, shortness of breath, positional lightheadedness and dizziness, and hypotension. She has had no presyncope or syncope episodes, and no anginal symptoms. Patient got fairly winded just coming in from the parking lot today despite taking the elevator. She denies any sentinel events. patient underwent left and right heart catheterization at [facility] by myself on 03/05/17 which demonstrated [...] is taking and tolerating her medicines well. At our last visit, the patient complained of intermittent palpitations, but actually are occurring less frequently than our last visit. She did visit with Dr. Soni, who made no changes to her medications [...] with a peak/mean gradient of 32/17 mmHg. most recent echocardiogram dated 10/26/18 showed the following: The estimated ejection fraction is 65 %. Normal diastology for age.Right ventricular systolic pressure estimated to be 31 mmHg.Bicuspid aortic valve. 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 Mild to moderate aortic stenosis. Compared to echo report dated 10/07/2017, no appreciable changes noted. Surveillance echocardiogram dated 10/26/2018 showed the following: The estimated ejection fraction is 65 %. Normal diastology for age. Right ventricular systolic pressure estimated to be 31 mmHg. Bicuspid aortic valve. 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 Mild to moderate aortic stenosis. Compared to echo report dated 10/07/2017, no appreciable changes noted. Since her last visit, the patient is doing extremely well. She denies any chest pain, angina, shortness of breath or dyspnea on exertion dissimilar from her previous visit. She maintains her Eliquis without difficulty. Patient can tell when she goes in and out of atrial fibrillation, and has had no events of atrial fibrillation. She is compliant with her CPAP. She has no longer on oxygen and is doing quite well. In our office today her blood pressure is 115/60, and a pulse of 64 and regular. Her physical exam Demonstrates diminished [...] 111 and HDL of 68. Intake Vital Signs06/05/19 Height 5 ft 4 in 06/05/19 Weight: 221 lb 06/05/19 Body Mass Index (BMI) 37.9 06/05/19 Blood Pressure 115/60 Intake Visit Reasons: 6 M FU Space Controller Required: No Is patient in pain?: No Allergies No Known Allergies Allergy (Verified 06/05/19 14:20) Medications Lamotrigine [Lamictal] 200 mg PO DAILY 12/17/14 [History Confirmed 06/05/19] trazodone 100 mg tablet 200 mg PO DAILY tab 10/18/17 [History Confirmed 06/05/19] sertraline 100 mg tablet 100 mg PO BID tab 10/19/17 [History Confirmed 06/05/19] cholecalciferol (vitamin D3) 1,000 unit capsule 1,000 unit PO DAILY 10/27/18 [History Confirmed 06/05/19] venlafaxine ER 37.5 mg tablet,extended release 24 hr 37.5 mg PO DAILY 10/27/18 [History Confirmed 06/05/19] apixaban 5 mg tablet 5 mg PO BID #60 tab 06/05/19 [Rx Confirmed 06/05/19] coenzyme Q10 100 mg capsule 100 mg PO DAILY 06/05/19 [History Confirmed 06/05/19] ezetimibe 10 mg tablet 10 mg PO QDAY #90 tab 06/05/19 [Rx Confirmed 06/05/19] gemfibrozil 600 mg tablet 600 mg PO BID #180 tab 06/05/19 [Rx Confirmed 06/05/19] hydrochlorothiazide 25 mg tablet 25 mg PO QDAY #90 tab 06/05/19 [Rx Confirmed 06/05/19] metoprolol tartrate 100 mg tablet 100 mg PO BID #180 tab 06/05/19 [Rx Confirmed 06/05/19] multivitamin tablet 1 tab PO DAILY 06/05/19 [History Confirmed 06/05/19] potassium chloride ER 10 mEq tablet,extended release(part/cryst) 10 meq PO DAILY #90 tab 06/05/19 [Rx Confirmed 06/05/19] ramipril 10 mg capsule 10 mg PO QDAY #90 cap 06/05/19 [Rx Confirmed 06/05/19] verapamil ER (SR) 120 mg tablet,extended release 120 mg PO DAILY #90 tab 06/05/19 [Rx Confirmed 06/05/19] [facility] Medical History Long-term use of high-risk medication [...] History Brother CAD (coronary artery disease) from [place] age 52 Father Dementia Mother Cancer Social History (Updated 06/05/19 @ 14:32 by Stanley Marcos MD) Smoking Status: Former smoker how long ago did patient quit smokin second hand exposure: No alcohol intake: never substance use type: does not use caffeine: No what type of physical activity do you participate in: none ROS Const Const: Positive for other (Feels well); negative for fatigue, weakness, body ache, fever(s), headache(s), chills, frequent falls, night sweats, daytime sleepiness, difficulty sleeping, excessive sweating, weight gain, weight loss, increased appetite, poor appetite or anorexia Eyes Eyes: Negative for blind spots, loss of peripheral vision, transient loss of vision, blurry vision, change in vision, double vision, floaters, tunnel vision or other ENT ENT: Negative for headache(s), dizziness, hearing loss, tinnitus, Nosebleed/epistaxis, balance problems, post nasal drip, lip swelling, tongue swelling, bleeding gums, hoarseness, neck pain, dry mouth or other Cardio Chest Pain: No Palpitations: No Edema: None Muscle aches with walking: None Resp Respiratory: Negative for SOB with activity, SOB at rest, SOB orthopnea\SOB lying down, Cough, Coughing up blood/hemoptysis, chest congestion, pain on inspiration, snoring, stridor, wheezing, crackles, paroxysmal nocturnal dyspnea or other GI GI: Negative nausea, vomiting, heartburn, constipation, belching, bloating, cramping, vomiting blood/hematemesis, bright, red blood in stools, black,tarry stools, loose stools, Difficulty Swallowing or other : Negative for hematuria, frequent nighttime urination/ nocturia, erectile dysfunction or abnormal vaginal bleeding Musc Musc: Negative for muscle aches/ myalgia, muscle weakness, joint pain or balance problems Skin Skin: Negative redness, non-healing lesions, rash, unusual bruising, skin ulcer, wounds, jaundice or other Neuro Neuro: Negative for dizziness, lightheadedness, near syncope, syncope, orthostatic symptoms, frequent falls, headache(s), weakness, confusion, memory loss, restless legs, blurry vision, double vision, vertigo, seizures, lack of coordination or other Glenn Hematologic/Lymphatic: Negative for easy bleeding, easy bruising, enlarged lymph nodes or other Endo Endo: Negative for fatigue, cold intolerance, heat intolerance, excessive sweating, flushing, increased thirst/drinking, increased hunger, hair loss, hair growth or other Psych Psych: Negative for anxiety, depression, thoughts of harming anyone, thoughts of harming yourself, visual hallucinations, panic attacks or audible hallucinations Allergy Allergy/Immunology: Negative for throat swelling, Negative for tongue swelling, Negative for hives, Negative for rash, Negative for lip swelling Cardiology Exam Const Appearance: cooperative, healthy appearing and no acute distress Nutritional Appearance: well nourished Orientation: alert, oriented x3 and oriented to person Head Head: normal to inspection, normocephalic and atraumatic Nose: external nose normal Face and Sinus: [...] regular rate Rhythm: regular rhythm Heart sounds: S1 normal and S2 normal GI GI: normal to inspection, no hepatosplenomegaly and bowel sounds present Neuro General: alert, awake, oriented x3, CN's II-XI intact bilaterally and moves all [...] valve Q23.1 Plan 1. Bicuspid aortic valve: Patient has had no sentinel events, lightheadedness, dizziness, syncope or presyncope. Her blood pressure and heart rate are well controlled. Recommend that she continue her current medication of metoprolol, potassium, ramipril and verapamil. We will proceed with surveillance echocardiograms on a yearly basis, her next one being due in October 2019. 2. Persistent atrial fibrillation I48.1 Plan 2. Atrial fibrillation: The patient has paroxysmal atrial fibrillation, is currently in sinus rhythm by physical exam. She is 1 of these patients to require both beta-sheba and calcium channel sheba therapy. Given her pulmonary hypertension, paroxysmal atrial fibrillation, would recommend continuing Eliquis. I strongly recommended that she continue her CPAP as well as this may be assisting with her pulmonary hypertension. 3. Hyperlipidemia E78.5 Plan 3. Hyperlipidemia: Her LDL and HDL cholesterol are fairly well-controlled. Repeat lipids are pending. Continue gemfibrozil. This note was generated using a voice recognition system and there may be incorrect words, spelling or punctuation that were not noted when reviewing the office note prior to saving. Plan Detail Other Orders Orders: Other Medications Refilled: Follow Up +6M (Marcos) Coding Level of Care Code Off vis,est,level 3 Diagnoses Bicuspid aortic valve Q23.1 Persistent atrial fibrillation I48.1 Hyperlipidemia E78.5 Coding Level of Care Code Off vis,est,level 3 Diagnoses Bicuspid aortic valve Q23.1 Persistent atrial fibrillation I48.1 Hyperlipidemia E78.5 Supplemental Info Supplemental Information Labs LDL Cholesterol 123 mg/dL (0-99) H 08/16/18 HDL Cholesterol 69 mg/dL (>39) 08/16/18 Triglycerides 46 mg/dL (-199) 04/21/18 VLDL Cholesterol 9 mg/dL (5-40) 04/21/18 Diagnostics Echocardiogram 10/26/18 Chest X-Ray 09/17/16 Pulmonary Pulmonary Function Test 12/21/17 Pulmonary Exercise Test 12/14/18 06/05/19 1432 <Electronically signed by Stanley Marcos MD> Date Stanley Marcos MD Cosigner Signature: Date (if applicable) CC: Lydia Newman Start: 04-23-2019 End: 04-23-2019 Emergency Department Summary Comments: See Note; NOTES: [facility] Medical Records Department [address] [place] [address] Emergency Department Summary 04/02/19 0913 MR#: [id number] Acct: [id number] Name: ADRIANA DILL Rep #: [id number] : 1955 64 From: Vinh NOLAN PCP: Lydia Marte DO Status: DEP ER History of Present Illness Informant: Patient, Significant Other Onset: Weeks - 1 week ago Context: Sudden Onset Timing: Continuous Quality: Sharp Location: Left ribs Current Severity: Severe Maximum Severity: Severe Worsened by: Movements, coughing, breathing Relieved by: nothing Associated Symptoms: Denies Narrative: 64-year-old female with a history of chronic atrial fibrillation anticoagulated with Eliquis presents to the emergency department with left rib pain. 1 week ago the patient slipped at home and fell onto her granddaughter's toys on her left side. She had no prodromal symptoms. She did not hit her head or lose consciousness. She landed on her left side ribs and has had continued pain since that time. She has not been short of breath or had chest pain. No fevers chills or hemoptysis. She denies any other injuries. She has no vomiting or diarrhea. She denies any symptoms of bleeding. Prior similar symptoms: No Recent Illness/Hospitalization: No <Vinh Duarte - Last Filed: 04/02/19 11:04> <Marium Villalobos - Last Filed: 04/02/19 14:20> Chief Complaint: Fall Past Medical History Prior records reviewed: Yes Past Medical History: - - Atrial fibrillation Surgical History: - - MAZE procedure Lives: Spouse/ Significant Other Smoking Status: Former smoker <Vinh Duarte - Last Filed: 04/02/19 11:04> <Marium Villalobos - Last Filed: 04/02/19 14:20> - Allergies and Home Meds Allergies/Adverse Reactions: Allergies No Known Allergies Allergy (Verified 04/02/19 08:58) Primary Care Physician: Lydia Marte DO [Primary Care Provider] - Review of Systems General: Denies: Chills, Fever Cardiovascular: Denies: Chest pain Respiratory: Reports: - - Left sided rib pain. Denies: Dyspnea, Cough, Sputum, Dyspnea on exertion Gastrointestinal: Denies: Abdominal pain, Nausea, Vomiting <GeraldVinh - Last Filed: 04/02/19 11:04> Physical Exam Vital Signs/Narrative: Vital Signs 04/02/19 08:55 97.9 F 66 18 122/63 H 96 General: Well nourished, Well developed, No Acute Distress Head: Normocephalic, Atraumatic Eyes: Perrl, EOMI ENT: Moist mucous membranes, - - No trauma Neck: Supple, Nontender - Normal range of motion Cardiovascular: Irregular, Murmur Respiratory: No distress, CTA bilaterally, Chest tenderness - Bruising left lateral and posterior ribs with tenderness on palpation. No crepitus. No step-off deformities are noted. Abdomen: Soft, Nontender, Nondistended, Normal bowel sounds, No masses Back: Nontender, Normal Inspection Extremities: Nontender, No edema Skin: No rash, Trauma Neurological: Alert, Oriented x3 <GeraldVinh - Last Filed: 04/02/19 11:04> Vital Signs/Narrative: Vital Signs 04/02/19 08:55 97.9 F 66 18 122/63 H 96 <Marium Villalobos - Last Filed: 04/02/19 14:20> Diagnostic/Tx/Re-eval - Medical Decision Making Patient's x-ray with left-sided rib series shows no acute findings. Patient reassured. She will be given a short course of [place] as she is anticoagulated and is unable to take anti-inflammatories and has not had relief with Tylenol. Patient has no bruising of her abdomen her abdomen is soft and nontender she is able to tolerate by mouth she has been urinating normally and at this time do not feel further work-up is indicated. She was advised to follow-up with her primary care physician this week or return to the emergency department for worsening symptoms which we discussed. <Vinh Duarte - Last Filed: 04/02/19 11:04> - Medical Decision Making Patient was seen with the physician curatorial assistant agree with the history and physical and the plan patient fell about a week ago on Eliquis has some nonspecific chest pain no head neck chest or abdominal pain no other complaints Head neck chest unremarkable that there is some vague left-sided chest discomfort no crepitance lungs are clear the abdomen soft neurologically normal x-rays see the rest of the plan dictated in the note <Marium Villalobos - Last Filed: 04/02/19 14:20> ED Disposition <Vinh Duarte - Last Filed: 04/02/19 11:04> <Marium Villalobos - Last Filed: 04/02/19 14:20> - Plan for ED Patient: Disposition: Home or Assisted Living Diagnosis: Contusion of rib on left side Instructions: Rib Contusion Prescriptions: Hydrocodone Bitart/Apap 5-325 [[place] 5MG-325MG] 1 tab PO Q6H PRN PRN 3 Days #12 tab PRN Reason: Pain Prescription Printed Referrals: Lydia Marte, DO [Primary Care Provider] - What to do if you have Problems For any increased pain, shortness of breath, bleeding, nausea or vomiting, chest pain, or any unexpected problems, contact your Primary Care Provider. Call [facility] ([phone]) or report to the closest Emergency Room. Call 911 if necessary. 04/02/19 1108 <Electronically signed by Vinh NOLAN> Date Vinh NOLAN 04/23/19 1119<Electronically signed by Marium Villalobos MD> Cosigner Signature (If Indicated): Date Marium Villalobos MD CC: Lydia Marte DO Lydia Marte Start: 04-02-2019 End: 04-02-2019 Ribs Uni Min 3V w/PA Chest Comments: See Note; NOTES: [facility] Imaging Services [address] [place] [address] Ribs Uni Min 3V w/PA Chest MR#: [id number] Acct: [id number] Name: ADRIANA DILL Rep #: [id number] : 1955 F 64 From: Irene Smith MD PCP: Lydia Marte DO Status: REG ER Study: Ribs Uni Min 3V w/PA Chest Date of Exam: 04/02/19 Exam# [id number] Ordering Dr: Vinh Duarte STUDY: X-RAY - UNILATERAL RIBS ( LEFT ) WITH CHEST REASON FOR EXAM: Female, 64 years old. Status post fall one week ago TECHNIQUE - RIBS: 4 view(s) of the ribs. TECHNIQUE - CHEST: Single PA view of the chest. COMPARISON: 09/17/2016 chest x-ray, August 16, 2018 shoulder x-ray FINDINGS - RIBS: Normal visualized ribs without a demonstrated fracture. FINDINGS - CHEST: There is elevation of the right hemidiaphragm. There is no demonstrated pleural abnormality. There is mild cardiac enlargement. Normal mediastinum and latoya. Normal visualized pulmonary arteries. There is atherosclerotic calcification of the aortic arch with tortuosity. There are diffuse degenerative changes of the visualized thoracic spine. Normal visualized ribs, clavicles, and shoulders. There is no demonstrated abnormality of the visualized soft tissue structures of the upper abdomen. RAD/Ribs Uni Min 3V w/PA Chest IMPRESSION: RIBS: Normal x-ray examination of the ribs. CHEST: Degenerative changes, as described above. No demonstrated acute cardiopulmonary process. Electronically Signed: Irene Smith MD at 10:57 EDT Tel , Service support , CC: OVIDIO Duarte; Lydia Marte DO Hand Hardener: Signed Lydia Marte Start: 12-19-2018 End: 12-19-2018 Pulmonary Visit Report Comments: See Note; NOTES: [facility] [place] [address] [place] [address] OFFICE VISIT Date of Service: 12/19/18 MR#: [id number] Acct: [id number] Name: ADRIANA DILL Rep #: [id number] : 1955 Provider: Yuni Banks Age/Sex: 63/F Location[place] [facility] [place] Status: Signed Assessment AND Plan 1. Obstructive sleep apnea G47.33 Plan Patient is using and benefiting from Pap therapy. No indication for titration study at this time. Continue to encourage weight loss. Contact the office for any new or worsening symptoms in the meantime. Follow-up in 6 months. 2. Secondary pulmonary arterial hypertension I27.21 Plan Stable. Does not require submental oxygen at this time. Continue to encourage low-sodium diet. 3. BMI 33.0-33.9,adult Z68.33 Plan Continue to encourage weight loss. 4. Bipolar affective disorder, remission status unspecified F31.9 Plan Complicates exam, plan, care and prognosis. Defer management to PCP. Plan Detail Follow Up 6 Months (BWA) HPI 6 M FU: Chief Complaint: Palpitations HPI Comments Details: This is a 63 year old F, here to follow up for sleep apnea. Current use of pressure support therapy is on average of 6 hours per night with current settings of 16/12 cmH2O. ADRIANA denies any daytime somnolence, dry mouth in the morning, nocturia, snoring through the mask, morning headaches or difficulty with mask leaks. ADRIANA reports feeling rested in the morning and is benefitting from current therapy. Compliance report was reviewed and shows 100% compliance, AHI is slightly elevated with an average of 3.7 events per hour but leaks do not appear to be an issue. Currently she experiences shortness of breath on exertion only. She also occasionally experiences palpitations, which caused shortness of breath. She states palpitations occur approximately 2-3 times daily. It is very short in duration, causes and associated chest tightness. She states that it resolves within a few seconds and does not require any urgent intervention. She denies any cough, sputum production or hemoptysis. Denies any wheezing, chest tightness, fever, chills or body aches. Pulmonary stress test completed on December 14, 2018 shows the patient was able to ambulate a total of 831 feet over the course of 6 minutes. She did not become hypoxic and does not require supplemental oxygen with ambulation. Intake Vital Signs12/19/18 Height 5 ft 4 in 12/19/18 Weight: 218 lb Intake Visit Reasons: 6 M FU [facility] [place]: KEVIN Accompanied by: Allergies No Known Allergies Allergy (Verified 12/19/18 08:42) Medications Lamotrigine [Lamictal] 200 mg PO DAILY 12/17/14 [History Confirmed 12/19/18] trazodone 100 mg tablet 200 mg PO DAILY tab 10/18/17 [History Confirmed 12/19/18] sertraline 100 mg tablet 100 mg PO BID tab 10/19/17 [History Confirmed 12/19/18] apixaban 5 mg tablet 5 mg PO BID #60 tab 05/30/18 [Rx Confirmed 12/19/18] gemfibrozil 600 mg tablet 600 mg PO BID #180 tab 06/20/18 [Rx Confirmed 12/19/18] ezetimibe 10 mg tablet 10 mg PO QDAY #90 tab 08/26/18 [Rx Confirmed 12/19/18] verapamil ER (SR) 120 mg tablet,extended release 120 mg PO DAILY #90 tab 09/06/18 [Rx Confirmed 12/19/18] ramipril 10 mg capsule 10 mg PO QDAY #90 cap 10/21/18 [Rx Confirmed 12/19/18] potassium chloride ER 10 mEq tablet,extended release(part/cryst) 10 meq PO DAILY #90 tab 10/24/18 [Rx Confirmed 12/19/18] cholecalciferol (vitamin D3) 1,000 unit capsule 1,000 unit PO DAILY 10/27/18 [History Confirmed 12/19/18] metoprolol tartrate 100 mg tablet 100 mg PO BID #180 tab 10/27/18 [Rx Confirmed 12/19/18] venlafaxine ER 37.5 mg tablet,extended release 24 hr 37.5 mg PO DAILY 10/27/18 [History Confirmed 12/19/18] hydrochlorothiazide 25 mg tablet 25 mg PO QDAY #90 tab 11/29/18 [Rx Confirmed 12/19/18] [facility] Medical History Long-term use of high-risk medication [...] History Brother CAD (coronary artery disease) from [place] age 52 Father Dementia Mother Cancer Social History Smoking Status: Former smoker how long ago did patient quit smokin second hand exposure: No alcohol intake: never substance use type: does not use caffeine: No what type of physical activity do you participate in: none Review of Systems Const CONSTITUTIONAL: No anorexia, No body ache, No chills, No daytime sleepiness, No fever(s), No night sweats, No stops breathing during sleep, No weight loss, No weight gain, No sleeping in chair, No orthopnea, No fatigue, No headache(s), No frequent colds, No seasonal allergies, No other EETM Ear Nose Throat Mouth: No hoarseness, No Dry mouth in morning, No change in vision, No itchy eyes, No eye pain, No Swallowing Difficulty, No ear pain, No nose bleed, No headache(s), No mouth pain, No nasal congestion, No nasal discharge, No sinus pain, No sinus pressure, No sore throat, No other Cardio Cadriovascular: No chest pain, No chest pain at rest, No chest pain with activity, No irregular heart rhythm, No shortness of breath when lying down, No palpitations, No other Resp Respiratory: Yes as per HPI, No shortness of breath at rest, No pain with cough, No chest congestion, No cough, No chest tightness, No pain on inspiration, No Inhalers, No Increase use of Rescue Inhalers, No snoring, No apnea, Yes other (FERNANDO) Gastro Gastrointestional: Negative bloody stools, change in appetite, difficulty swallowing, reflux, hematemesis, melena stool, loose stool, constipation or other Genitourinary: Negative blood in urine, nocturia, pain with urination or other Musc Musculoskeletal: Negative body pain, back pain, neck pain or other Skin/Breast Skin/Breast: No dry skin, No itching, No unusual bruising, No breast lump, No other Neuro Neurological: Negative restless legs, confusion, weakness or other Psych Psychocological: Negative abnormal sleep pattern, anxiety, thoughts of hurting self/others, hopelessness or other Lymph Lymphatic: No easy bleeding, No easy bruising, No other Exam Const Constitutional: Positive conversant, cooperative, in no acute respiratory distress, healthy appearing, well developed, well nourished and good hygiene; negative wearing supplemental oxygen or ill appearing Head Head: Yes normocephalic, Yes atraumatic Eyes Eye: Positive clear conjunctiva; negative nystagmus, scleral abnormality or cataract present Ears Ear: Positive hearing normal and external ears normal; negative hard of hearing Nose Nose: Yes external nose normal Mouth Mouth: Positive oral mucosae normal, no lesions, crowded posterior oropharynx and post nasal drip; negative malodorous breath or oral thrush present Mallampati Score: III: Mallampati Score Neck Neck: Positive normal visual inspection, full ROM, trachea midline and female neck greater than 37 cm (15 in); negative lymphadenopathy or JVD Chest Wall Chest: Positive normal inspection of the chest and symmetric chest movement; negative crepitus or tenderness Resp lung sounds: Positive clear to auscultation, diminished, normal expiratory time and normal respiratory effort; negative wheezes, wheeze present on forced exhalation, rhonchi, rales, dullness to percussion or use of accessory muscles Cardio Cardiac: Positive regular rate, regular rhythm, S1 normal, S2 normal and murmur murmur: Positive RUSB, LUSB and systolic; negative rub or gallop GI GI: Positive normal to inspection; negative distended, ascites or epigastric tenderness Genitourinary: Positive deferred Musc Musculoskeletal: Positive steady gait; negative using an assistive device for ambulation, kyphosis or scoliosis Skin Pulmonary Skin Exam: Positive intact; negative lesion, rash, ulcers, erythema, scaly or dermal atrophy Pulses Pulse: Yes radial pulses present Extremities Extremities: Yes capillary refill normal, No clubbing, No cyanosis, Yes edema (Trace lower extremity), No stasis dermatitis Neuro Neurologic: Yes no focal neuro deficits, Yes conversant, Yes cooperative, Yes normal cognition, Yes normal coordination, Yes normal concentration, Yes understands questions, No tremor Lymph Lymphatic: No lymphadenopathy, No tenderness, No cervical adenopathy Psych Appearance: Positive grossly normal Mental Status: Positive mental status grossly normal Mood: Positive congruent mood Affect: Positive normal affect Coding Level of Care Code Off vis,est,level 3 Diagnoses Obstructive sleep apnea G47.33 Secondary pulmonary arterial hypertension I27.21 BMI 33.0-33.9,adult Z68.33 Bipolar affective disorder, remission status unspecified F31.9 Active/Remission status: remission status unspecified 12/19/18 0914 <Electronically signed by Yuni HARRIS> Date Yuni HARRIS Cosigner Signature: Date (if applicable) CC: Lydia Newman Start: 12-14-2018 End: 12-14-2018 6 Minute Walk Test Comments: See Note; NOTES: [facility] Pulmonary Services/Neurology [facility] [place] [address] MR#: [id number] Acct: [id number] Name: ADRIANA DILL Rep #: [id number] : 1955 63 From: Michael Segal DO Referring Dr: Michael Segal D.O. Date: Ordering Dr: Sex: F C Location: PSN PSN 6 Minute Walk Test - 6 Minute Walk Test 6 Minute Walk Test: 6 Minute Walk Test PSN:6-Minute Walk Test Start: 12/14/18 11:30 Freq: Status: Active Protocol: [id number].[id number] Document 12/14/18 11:30 SMB (Rec: 12/14/18 11:33 SMB [id number]) 6 Minute Walk Test Date Performed 12/14/18 Time Performed 08:59 Height 5 ft 4 in Weight: 213 lb Weight in Pounds 213.[address]: Michael Segal Assistive device used: None Pre-test Oxygen Delivery Method Room Air Pulse Ox (%) 93 Pulse Rate (60-100 beats/min) 96 Dyspnea Leigha Scale (0-10) 0.5 Exertion Leigha Scale (6-20) 11 1st minute Oxygen Delivery Method Room Air Pulse Ox (%) 92 Pulse Rate (60-100 beats/min) 94 2nd minute Oxygen Delivery Method Room Air Pulse Ox (%) 92 Pulse Rate (60-100 beats/min) 80 3rd minute Oxygen Delivery Method Room Air Pulse Ox (%) 93 Pulse Rate (60-100 beats/min) 79 4th minute Oxygen Delivery Method Room Air Pulse Ox (%) 94 Pulse Rate (60-100 beats/min) 76 5th minute Oxygen Delivery Method Room Air Pulse Ox (%) 93 Pulse Rate (60-100 beats/min) 75 6th minute Oxygen Delivery Method Room Air Pulse Ox (%) 92 Pulse Rate (60-100 beats/min) 90 Post-test Oxygen Delivery Method Room Air Pulse Ox (%) 94 Pulse Rate (60-100 beats/min) 71 Dyspnea Leigha Scale (0-10) 2 Exertion Leigha Scale (6-20) 12 Full Laps Walked 14 Partial Lap, Number of Tiles Walked 5 Total Distance Walked (ft) 831 - Interpretation Interpretation: The patient ambulated 831 feet over the course of 6 minutes beginning on room air without assistive devices or breaks. Pretesting oxygen saturation was noted to be 93% on room air. With ambulation, the maggie oxygen saturation was 92%. There was no significant exertional oxygen desaturation. - Recommendations Recommendations: There is no indication for the use of supplemental oxygen at this time. 12/14/181251 <Electronically signed by Michael Segal DO> Date Michael Segal DO CC: Date Dictated: 12/14/181251 Date Transcribed: 12/14/181251 Hand Hardener: Michael Segal DO Signed Lydia Marte Start: 10-27-2018 End: 10-27-2018 Cardiology Visit Report Comments: See Note; NOTES: [facility] Heart [address] [place] [address] OFFICE VISIT Date of Service: 10/27/18 MR#: [id number] Acct: [id number] Name: ADRIANA DILL Rep #: [id number] : 1955 Provider: Stanley Marcos MD Age/Sex: 63/F Location[place] [facility] Status: Signed HPI HPI Chief Complaint: Routine f/u Details: Details: Details: Referring physician: Dr. Jeanne Quinones [...] underwent left and right heart catheterization at [facility] by myself on 03/05/17 which demonstrated [...] is taking and tolerating her medicines well. At our last visit, the patient complained of intermittent palpitations, but actually are occurring less frequently than our last visit. She did visit with Dr. Soni, who made no changes to her medications [...] with a peak/mean gradient of 32/17 mmHg. most recent echocardiogram dated 10/26/18 showed the following: The estimated ejection fraction is 65 %. Normal diastology for age.Right ventricular systolic pressure estimated to be 31 mmHg.Bicuspid aortic valve. 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 Mild to moderate aortic stenosis. Compared to echo report dated 10/07/2017, no appreciable changes noted. He was doing well until about last week, when she developed recurrent palpitations which last several minutes associated with substernal chest pressure. Her symptoms spontaneously resolved once her palpitations resolved. She did not call Dr. Soni or myself at that time. Other than that she has had no symptoms whatsoever. She is off her oxygen, and is awaiting a 6-minute walk test to determine if she requires ongoing oxygen therapy. In our office today her blood pressure [...] 111 and HDL of 68. Intake Vital Signs10/27/18 Height 5 ft 4 in 10/27/18 Weight: 206 lb 10/27/18 Body Mass Index (BMI) 35.3 10/27/18 Blood Pressure 90/44 L Intake Visit Reasons: 6 M Space Controller Required: No Is patient in pain?: No Allergies No Known Allergies Allergy (Verified 10/27/18 13:46) Medications Lamotrigine [Lamictal] 200 mg PO DAILY 12/17/14 [History Confirmed 10/27/18] trazodone 100 mg tablet 200 mg PO DAILY tab 10/18/17 [History Confirmed 10/27/18] sertraline 100 mg tablet 100 mg PO BID tab 10/19/17 [History Confirmed 10/27/18] apixaban 5 mg tablet 5 mg PO BID #60 tab 05/30/18 [Rx Confirmed 10/27/18] gemfibrozil 600 mg tablet 600 mg PO BID #180 tab 06/20/18 [Rx Confirmed 10/27/18] ezetimibe 10 mg tablet 10 mg PO QDAY #90 tab 08/26/18 [Rx Confirmed 10/27/18] verapamil ER (SR) 120 mg tablet,extended release 120 mg PO DAILY #90 tab 09/06/18 [Rx Confirmed 10/27/18] ramipril 10 mg capsule 10 mg PO QDAY #90 cap 10/21/18 [Rx Confirmed 10/27/18] potassium chloride ER 10 mEq tablet,extended release(part/cryst) 10 meq PO DAILY #90 tab 10/24/18 [Rx Confirmed 10/27/18] cholecalciferol (vitamin D3) 1,000 unit capsule 1,000 unit PO DAILY 10/27/18 [History Confirmed 10/27/18] hydrochlorothiazide 25 mg tablet 25 mg PO QDAY #90 tab 10/27/18 [Rx Confirmed 10/27/18] metoprolol tartrate 100 mg tablet 100 mg PO BID #180 tab 10/27/18 [Rx Confirmed 10/27/18] venlafaxine ER 37.5 mg tablet,extended release 24 hr 37.5 mg PO DAILY 10/27/18 [History Confirmed 10/27/18] [facility] Medical History Long-term use of high-risk medication [...] History Brother CAD (coronary artery disease) from [place] age 52 Father Dementia Mother Cancer Social History Smoking Status: Former smoker how long ago did patient quit smokin second hand exposure: No alcohol intake: never substance use type: does not use caffeine: No what type of physical activity do you participate in: none ROS Const Const: Positive for other (Started having rapid palps again (hx PVI), started keto diet,?ifcaused); negative for fatigue, weakness, body ache, fever(s), headache(s), chills, frequent falls, night sweats, daytime sleepiness, difficulty sleeping, excessive sweating, weight gain, weight loss, increased appetite, poor appetite or anorexia Eyes Eyes: Negative for blind spots, loss of peripheral vision, transient loss of vision, blurry vision, change in vision, double vision, floaters, tunnel vision or other ENT ENT: Negative for headache(s), dizziness, hearing loss, tinnitus, Nosebleed/epistaxis, balance problems, post nasal drip, lip swelling, tongue swelling, bleeding gums, hoarseness, neck pain, dry mouth or other Cardio Chest Pain: No Palpitations: Yes (Hr up to 150, lasted 10-15 minutes. X2 since started keto diet) feels like its: fast, thumping Edema: None Muscle aches with walking: None Resp Respiratory: Positive for other (SOB only with rapid palps); negative for SOB with activity, SOB at rest, SOB orthopnea\SOB lying down, Cough, Coughing up blood/hemoptysis, chest congestion, pain on inspiration, snoring, stridor, wheezing, crackles or paroxysmal nocturnal dyspnea GI GI: Negative nausea, vomiting, heartburn, constipation, belching, bloating, cramping, vomiting blood/hematemesis, bright, red blood in stools, black,tarry stools, loose stools, Difficulty Swallowing or other : Negative for hematuria, frequent nighttime urination/ nocturia, erectile dysfunction or abnormal vaginal bleeding Musc Musc: Negative for muscle aches/ myalgia, muscle weakness, joint pain or balance problems Skin Skin: Negative redness, non-healing lesions, rash, unusual bruising, skin ulcer, wounds, jaundice or other Neuro Neuro: Negative for dizziness, lightheadedness, near syncope, syncope, orthostatic symptoms, frequent falls, headache(s), weakness, confusion, memory loss, restless legs, blurry vision, double vision, vertigo, seizures, lack of coordination or other Glenn Hematologic/Lymphatic: Negative for easy bleeding, easy bruising, enlarged lymph nodes or other Endo Endo: Negative for fatigue, cold intolerance, heat intolerance, excessive sweating, flushing, increased thirst/drinking, increased hunger, hair loss, hair growth or other Psych Psych: Negative for anxiety, depression, thoughts of harming anyone, thoughts of harming yourself, visual hallucinations, panic attacks or audible hallucinations Allergy Allergy/Immunology: Negative for throat swelling, Negative for tongue swelling, Negative for hives, Negative for rash, Negative for lip swelling Cardiology Exam Const Appearance: cooperative, healthy appearing and no acute distress Nutritional Appearance: well nourished Orientation: alert, oriented x3 and oriented to person Head Head: normal to inspection, normocephalic and atraumatic Nose: external nose normal Face and Sinus: [...] Heart sounds: S2 normal Murmur: Grade 2/6, high pitched and crescendo-decrescendo GI GI: normal to inspection, no hepatosplenomegaly and bowel sounds present Neuro General: alert, awake, oriented x3, CN's II-XI intact bilaterally and moves all [...] Q23.1 Plan 1. Bicuspid aortic valve: The patient's bicuspid aortic valve is remained relatively stable over the last several echocardiograms. It is possible that given her bicuspid aortic valve when she occasionally has palpitations she may get chest pressure due to shortened diastolic filling time. She is on fairly high-dose metoprolol 100 mg p.o. twice daily, and has potassium replacement with her hydrochlorothiazide. She has had event monitors in the past which have been less than helpful, and I do not believe she requires antiarrhythmic therapy at this time. If however the patient's arrhythmias return, she may require flecainide based therapy for her paroxysmal atrial fibrillation or SVT. My preference would be to get a diagnosis, and in order to do so, she may need a loop recorder. It does not appear that she requires aortic valve replacement at this time. 2. Persistent atrial fibrillation I48.1 Plan 2. Paroxysmal atrial fibrillation: Continue Eliquis therapy. She is on higher dose of metoprolol 100 mg p.o. twice daily and potassium replacement for her hydrochlorothiazide. Continue verapamil. 3. Hyperlipidemia E78.5 Plan 3. Hyperlipidemia: Her LDL and HDL cholesterol are at goal. Continue Zetia and gemfibrozil. 4. Return office in 6 months. This note was generated using a voice recognition system and there may be incorrect words, spelling or punctuation that were not noted when reviewing the office note prior to saving. Orders Orders: Plan Detail Other Medications Refilled: Follow Up +6M (Kaiden) Coding Level of Care Code Off vis,est,level 3 Diagnoses Bicuspid aortic valve Q23.1 Persistent atrial fibrillation I48.1 Hyperlipidemia E78.5 Coding Level of Care Code Off vis,est,level 3 Diagnoses Bicuspid aortic valve Q23.1 Persistent atrial fibrillation I48.1 Hyperlipidemia E78.5 Supplemental Info Supplemental Information Labs LDL Cholesterol 123 mg/dL (0-99) H 08/16/18 HDL Cholesterol 69 mg/dL (>39) 08/16/18 Triglycerides 46 mg/dL (-199) 04/21/18 VLDL Cholesterol 9 mg/dL (5-40) 04/21/18 Diagnostics Echocardiogram 10/26/18 Chest X-Ray 09/17/16 Pulmonary Pulmonary Function Test 12/21/17 Pulmonary Exercise Test 02/17/18 10/27/18 1410 <Electronically signed by Stanley Marcos MD> Date Stanley Marcos MD [facility] Signature: Date (if applicable) CC: Lydia Newman Start: 10-26-2018 End: 10-26-2018 Echocardiogram Complete Comments: See Note; NOTES: [facility] Cardiovascular Services [address] [place] [address] Echo Complete 10/26/18 1005 MR#: [id number] Acct: [id number] Name: ADRIANA DILL Rep #: [id number] : 1955 63 From: Stanley Marcos MD Attending Dr: Stanley Marcos MD Status: REG I Ordering Dr: Stanley Marcos MD Date: 10/26/18 Location: [facility] Sex: F C Admitted: Reason For Study: VALVE REPLACEMENT EVAL Procedure This was a 2D Doppler, Color Flow transthoracic echocardiogram. Exam performed in department. Left Ventricle Normal size and thickness. The estimated ejection fraction is 65 %. Normal diastology for age. No regional wall motion abnormalities noted. Right Ventricle Normal size and thickness. Normal systolic function. Atria Normal left atrium. Normal right atrium. Normal atrial septum. Mitral Valve The mitral valve is structurally normal. No prolapse or stenosis seen. Trivial mitral valve insufficiency. Tricuspid Valve Normal tricuspid valve. Trivial tricuspid valve insufficiency. Right ventricular systolic pressure estimated to be 31 mmHg. Aortic Valve Bicuspid aortic valve. 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 Moderate focal aortic valve thickening. Mild to moderate aortic stenosis. Peak aortic valve gradient 34 mmHg. Mean aortic valve gradient 20 mmHg. Trivial aortic valve insufficiency. Pulmonic Valve Normal pulmonic valve. Trivial pulmonic valve insufficiency. Great Vessels Normal aortic root. Normal arch. Normal inferior vena cava. Inferior vena cava collapse with sniff. Pericardium/Pleural No pericardial effusion. MMode/2D Measurements AND Calculations LVIDd: 3.9 cm IVSd: 0.96 cm LVOT diam: 2.0 cm LVIDs: 2.5 cm LVPWd: 0.97 cm LVOT area: 3.1 cm2 RVDd: 3.2 cm FS: 34.7 % Ao root diam: 3.9 cm LAV(MOD-bp): 49.9 ml LVAd ap4: 26.8 cm2 LAV(MOD-bp) Indexed: 25.3 ml/m2 EDV(MOD-sp4): 77.4 ml LAV(MOD-sp2): 57.3 ml EDV(sp4-el): 84.4 ml LAV(MOD-sp4): 30.2 ml LVAs ap4: 15.8 cm2 ESV(MOD-sp4): 35.0 ml ESV(sp4-el): 35.1 ml EF(MOD-sp4): 54.8 % EF(sp4-el): 58.4 % SV(MOD-sp4): 42.4 ml SV(sp4-el): 49.3 ml Aortic Valve Planimetry: 1.5 cm2 LA A4 area: 12.2 cm2 LA dimension(2D): 3.5 cm RA A4 area: 11.3 cm2 Time Measurements MV dec time: 0.19 sec Doppler Measurements AND Calculations MV E max brina: 79.9 cm/sec Lat Peak E' Brina: 16.2 cm/sec Med Peak E' Brina: 7.1 cm/sec MV A max brina: 57.0 cm/sec E/E' lat: 4.9 E/E' med: 11.2 MV E/A: 1.4 Ao V2 max: 235.2 cm/sec AI max brina: 268.4 cm/sec LV V1 max: 105.5 cm/sec Ao max P.9 mmHg AI max P.8 mmHg LV V1 max P.5 mmHg Ao V2 mean: 168.5 cm/sec LV V1 mean P.5 mmHg Ao mean P.2 mmHg AI dec slope: 127.8 cm/sec2 LV V1 mean: 74.8 cm/sec Ao V2 VTI: 49.0 cm AI P1/2t: 615.0 msec LV V1 VTI: 24.9 cm CELESTE(I,D): 1.6 cm2 CELESTE(V,D): 1.4 cm2 SV(LVOT): 76.7 ml PA V2 max: 94.1 cm/sec TR max brina: 261.3 cm/sec TR max P.3 mmHg Interpretation Summary The estimated ejection fraction is 65 %. Normal diastology for age. Right ventricular systolic pressure estimated to be 31 mmHg. Bicuspid aortic valve. 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 Mild to moderate aortic stenosis. Compared to echo report dated 10/07/2017, no appreciable changes noted. Ordering Physician: Stanley Marcos Referring Physician: LYDIA MARTE Performed By: Yazmin Delgado RDCS 10/26/18 1546 Date Stanley Marcos MD CC: Stanley Marcos MD; Lydia Marte DO Date Dictated: 10/26/18 1005 Date Transcribed: 10/26/18 1546 Hand Hardener: Signed Lydia Marte Start: 08-16-2018 End: 08-17-2018 Shoulder min 2 Views Comments: See Note; NOTES: [facility] Imaging Services [address] [place] [address] [place] [address] Shoulder min 2 Views MR#: [id number] Acct: [id number] Name: ADRIANA DILL Rep #: [id number] : 1955 F 63 From: Inderjit Choudhary DO PCP: Lydia Marte DO Status: REG CLI Study: Shoulder min 2 Views Date of Exam: 08/16/18 Exam# [id number] Ordering Dr: Lydia Marte DO STUDY: X-RAY - LEFT SHOULDER REASON [...] degenerative change of the shoulder Electronically Signed: Inderjit Choudhary DO at 13:19 EST Tel , Service support , CC: Lydia Marte DO Hand Hardener: Signed Lydia Marte Work Phone: Start: 08-16-2018 End: 08-17-2018 Hand Min 3 Views Comments: See Note; NOTES: [facility] Imaging Services [address] [place] [address] Hand Min 3 Views MR#: [id number] Acct: [id number] Name: ADRIANA DILL Rep #: [id number] : 1955 F 63 From: Inderjit Choudhary DO PCP: Lydia Marte DO Status: REG CLI Study: Hand Min 3 Views Date of Exam: 08/16/18 Exam# [id number] Ordering Dr: Lydia Marte DO STUDY: X-RAY - LEFT HAND REASON [...] Tel , Service support , CC: Lydia Marte DO Hand Hardener: Signed Lydia Marte Work Phone: Start: 08-16-2018 End: 08-17-2018 Hips B/L min 2 views w/ Pelvis Comments: See Note; NOTES: [facility] Imaging Services [address] [place] [address] Hips B/L min 2 views w/ Pelvis MR#: [id number] Acct: [id number] Name: ADRIANA DILL Kenna Rep #: [id number] : 1955 F 63 From: Inderjit Choudhary DO PCP: Lydia Marte DO Status: REG CLI Study: Hips B/L min 2 views w/ Pelvis Date of Exam: 08/16/18 Exam# [id number] Ordering Dr: Lydia Marte DO STUDY: X-RAY - BILATERAL HIPS WITHOUT [...] Tel , Service support , CC: Lydia Marte DO Hand Hardener: Signed Lydia Marte Work Phone: Start: 08-16-2018 End: 08-17-2018 L/S Spine Min 4 Views Comments: See Note; NOTES: [facility] Imaging Services [address] [place] [id number] L/S Spine Min 4 Views MR#: [id number] Acct: [id number] Name: ADRIANA DILL Rep #: [id number] : 1955 F 63 From: Inderjit Choudhary DO PCP: Lydia Marte DO Status: REG CLI Study: L/S Spine Min 4 Views Date of Exam: 08/16/18 Exam# [id number] Ordering Dr: Lydia Marte DO STUDY: X-RAY - LUMBAR SPINE REASON [...] Tel , Service support , CC: Lydia Marte DO Hand Hardener: Signed Lydia Marte Work Phone: Start: 07-12-2018 End: 07-12-2018 Pulmonary Visit Report Comments: See Note; NOTES: [facility] [address] [place] [address] OFFICE VISIT Date of Service: 07/12/18 MR#: [id number] Acct: [id number] Name: ADRIANA DILL Rep #: [id number] : 1955 Provider: Ernesto Webster MD Age/Sex: 63/F Location[facility] Status: Signed Assessment AND Plan Problems 1. [...] Orders: Plan Detail Follow Up 6 Months ([facility]) HPI 6 M FU: Chief Complaint: Shortness [...] kg Intake Visit Reasons: 6 M FU Space Controller Required: No Accompanied by: Self Is patient [...] History Brother CAD (coronary artery disease) from [place] age 52 Father Dementia Mother Cancer Social [...] Ernesto Webster MD> Date Ernesto Webster MD Cosigner Signature: Date (if applicable) CC: Lydia Newman Start: 04-22-2018 End: 04-22-2018 Cardiology Visit Report Comments: See Note; NOTES: [facility] [address] [place] [address] OFFICE VISIT Date of Service: 04/22/18 MR#: [id number] Acct: [id number] Name: ADRIANA DILL Rep #: [id number] : 1955 Provider: Stanley Marcos MD Age/Sex: 63/F Location[place] [facility] Status: Signed HPI HPI Chief Complaint: Routine [...] underwent left and right heart catheterization at [facility] by myself on 03/05/17 which demonstrated [...] last visit. She did visit with Dr. Soni, who made no changes to her medications [...] QDAY #90 tab 11/10/17 [Rx Confirmed 04/22/18] [facility] Medical History Long-term use of high-risk medication [...] History Brother CAD (coronary artery disease) from [place] age 52 Father Dementia Mother Cancer Social [...] signed by Stanley Marcos MD> Date Stanley Stringer Signature: Date (if applicable) CC: Lydia Marte Start: 02-17-2018 End: 02-17-2018 6 Minute Walk Test Comments: See Note; NOTES: [facility] Pulmonary Services/Neurology [address] [place] [address] MR#: [id number] Acct: [id number] Name: ADRIANA DILL Rep #: [id number] : 1955 63 From: Ernesto Webster MD Referring Dr: Yuni Banks NP Date: Ordering Dr: Sex: F C Location: PSN PSN 6 Minute Walk Test - 6 Minute Walk Test 6 Minute Walk Test: 6 Minute Walk Test PSN:6-Minute Walk Test Start: 02/17/18 08:49 Freq: Status: Active Protocol: RESP.6MINW Document 02/17/18 08:30 EW (Rec: 02/17/18 08:52 EW [id number]) 6 Minute Walk Test Date Performed 02/17/18 [...] Date Dictated: 02/17/18 1040 Date Transcribed: 02/17/181039 Hand Hardener: Ernesto Webster Signed Lydia Marte Start: 01-12-2018 End: 01-12-2018 Pulmonary Visit Report Comments: See Note; NOTES: [facility] [address] [place] [address] OFFICE VISIT Date of Service: 01/11/18 MR#: [id number] Acct: [id number] Name: ADRIANA DILL Rep #: [id number] : 1955 Provider: Yuni Banks Age/Sex: 63/F Location: [facility] Status: Signed Assessment AND Plan 1. MEGHAN [...] out of the house its just sitting there . This patient presents to the office today [...] any inhalers. She has not tried any xsxh-nyi-edcihnm medications. She is pleased that she continues [...] lb Intake Visit Reasons: 6 M FU [facility] Vendor: [employer] Allergies flecainide Allergy (Verified 01/11/18 [...] QDAY #90 tab 11/10/17 [Rx Confirmed 01/11/18] [facility] Medical History Long-term use of high-risk medication [...] History Brother CAD (coronary artery disease) from [place] age 52 Father Dementia Mother Cancer Social [...] <Electronically signed by Yuni HARRIS> Date Yuni PRATHERC Cosigner Signature: Date (if applicable) CC: Lydia Newman Start: 12-21-2017 End: 12-21-2017 Pulmonary Function Report Comp Comments: See Note; NOTES: [facility] Pulmonary Services/Neurology [address] [place] [address] MR#: [id number] Acct: [id number] Name: ADRIANA DILL Rep #: [id number] : 1955 62 From: Ernesto Webster MD Referring Dr: Ernesto Webster MD Status: REG CLI Ordering Dr: Date: Location: [facility] Sex: F C COMPLETE PULMONARY FUNCTION TEST INTERPRETATION Brief HPI: Patient is a 62 year old female, currently under the care of myself, who presents to [facility] for complete pulmonary function tests secondary [...] Webster MD CC: Ernesto Webster MD; Lydia Marte DO Date Dictated: 12/21/17 1438 Date Transcribed: 12/21/171437 Hand Hardener: DAVID Signed Lydia Marte Start: 10-19-2017 End: 10-19-2017 Cardiology Visit Report Comments: See Note; NOTES: [facility] [address] [place], [place] [address]e. [address] [place] [address] OFFICE VISIT Date of Service: 10/19/17 MR#: [id number] Acct: [id number] Name: ADRIANA DILL Rep #: [id number] : 1955 Provider: Stanley Marcos MD Age/Sex: 62/F Location[place] [facility] Status: Signed HPI 3 M FU: Chief [...] underwent left and right heart catheterization at [facility] by myself on 03/05/17 which demonstrated [...] History Brother CAD (coronary artery disease) from [place] age 52 Social History Smoking Status: Former [...] recommended the patient be [facility] for further atrial fibrillation evaluation [...] Cosigner Signature: Date (if applicable) CC: Lydia Marte Start: 10-11-2017 End: 10-11-2017 Echocardiogram Complete Comments: See Note; NOTES: [facility] Cardiovascular Services [address] [place] [address] Echo Complete 10/07/17 1045 MR#: [id number] Acct: [id number] Name: ADRIANA DILL Rep #: [id number] : 1955 62 From: Stanley Marcos MD Attending Dr: Stanley Marcos MD Status: REG CLI Ordering Dr: Stanley Marcos MD Date: 10/07/17 Location: [facility] Sex: F C Admitted: [...] Doppler Measurements AND Calculations MV E max brina: 76.4 cm/sec Lat Peak E' Brina: [...] V1 VTI: 26.7 cm CELESTE(I,D): 1.3 cm2 ECLESTE(V,D): 1.2 cm2 PA V2 max: 77.6 cm/sec TR max brina: 259.1 cm/sec TR max [...] Ordering Physician: Stanley Marcos Referring Physician: Lydia Marte Performed By: Charlene Banks, YESSY, RVT 10/11/17 1039 Date Stanley Marcos MD CC: Stanley Marcos MD; Lydia Marte DO Date Dictated: 10/07/17 1045 Date Transcribed: 10/11/17 1039 Hand Hardener: Signed Lydia Marte Start: 07-23-2017 End: 07-23-2017 6 Minute Walk Test Comments: See Note; NOTES: [facility] Pulmonary Services/Neurology [address] [place] [address] MR#: [id number] Acct: [id number] Name: ADRIANA DILL Rep #: [id number] : 1955 62 From: Ernesto Webster MD Referring Dr: Ernesto Webster MD Date: Ordering Dr: Sex: F C Location: PSN PSN 6 Minute Walk Test - 6 Minute Walk Test 6 Minute Walk Test: 6 Minute Walk Test PSN:6-Minute Walk Test Start: 07/21/17 09:24 Freq: Status: Active Document 07/21/17 09:05 [facility] (Rec: 07/21/17 09:28 [facility] [id number]) 6 Minute Walk Test Date Performed 07/21/17 Time Performed 09:05 Height 1.63 m Weight: 92.079 kg Weight in Pounds 203.0 lbs [...] Room Air Pulse Ox 92 Pulse Rate (beats/min) 71 Number of Rests Taken 0 3rd minute Oxygen Delivery Method Room Air Pulse Ox 91 Pulse Rate (beats/min) 79 Number of Rests Taken 0 4th minute Oxygen Delivery Method Room Air Pulse Ox 91 Pulse Rate (beats/min) 103 Number of Rests Taken [...] low as 90% with ambulation. Some reflex tachycardia was noted. These findings are consistent with a respiratory limitation exercise tolerance. - Recommendations Recommendations: No supplemental oxygen is indicated at this time. However, patient will need to be followed closely given level of desaturation. 07/23/17712 <Electronically signed by Ernesto Webster MD> Date Ernesto Webster MD CC: Date Dictated: 07/23/17711 Date Transcribed: 07/23/17711 Hand Hardener: Ernesto Webster Signed Lydia Marte Start: 04-25-2017 End: 04-25-2017 6 Minute Walk Test Comments: See Note; NOTES: [facility] Pulmonary Services/Neurology [address] [place] [address] MR#: [id number] Acct: [id number] Name: ADRIANA DILL Rep #: [id number] : 1955 62 From: Michael Segal DO Referring Dr: Yuni Banks FI[employer] SALES CONSULTANT Date: Ordering Dr: Sex: F C Location: PSN PSN 6 Minute Walk Test - 6 Minute Walk Test 6 Minute Walk Test: 6 Minute Walk Test PSN:6-Minute Walk Test Start: 04/23/17 11:39 Freq: Status: Active Document 04/23/17 11:00 EW (Rec: 04/23/17 11:47 EW [id number]) 6 Minute Walk Test Date Performed 04/23/17 Time Performed 11:00 Height 19.51 m Weight: 102.058 kg Weight in Pounds 225.[address]: Yuni Banks Assistive device used: None Pre-test Oxygen Delivery Method Room Air Pulse Ox 94 Pulse Rate (beats/min) 70 Dyspnea Leigha Scale (0-10) 1 Exertion Leigha Scale (6-20) 6 1st minute Oxygen Delivery Method Room Air Pulse Ox 90 Pulse Rate (beats/min) 104 2nd minute Oxygen Delivery Method Room Air Pulse Ox 89 Pulse Rate (beats/min) 97 3rd minute Oxygen Delivery Method Room Air Pulse Ox 89 Pulse Rate (beats/min) 98 4th minute Oxygen Delivery Method Room Air Pulse Ox 88 Pulse Rate (beats/min) 107 5th minute Oxygen Flow Rate (L/min) 1 Oxygen Delivery Method Nasal Cannula Pulse Ox 94 Pulse Rate (beats/min) 103 6th minute Oxygen Flow Rate (L/min) 1 Oxygen Delivery Method Nasal Cannula Pulse Ox 94 Pulse Rate (beats/min) 113 Post-test Oxygen Flow Rate (L/min) 1 Oxygen Delivery Method Nasal Cannula Pulse Ox 95 Pulse Rate (beats/min) 75 Dyspnea Liegha Scale (0-10) 3 Exertion Leigha Scale (6-20) 11 Full Laps Walked 14 Partial Lap, Number of Tiles Walked 0 Total Distance Walked (ft) 826 04/23/17 11:43 Cardiopulmonary Services by Shruthi Sparks pt arrived for walk on room air. At Minute 4 sats decreased to 88%. on room air. Placed patient on 1lpm NC. sats increased to 96% on 1 lpm. [...] saturation was 88% on minute 4 of testing. 1 L of supplemental oxygen was subsequently applied and the patient was able to complete the remainder of the test while maintaining oxygen saturations within a normal range. - Recommendations Recommendations: The patient to utilize 1 L/min of supplemental oxygen with exertion. 04/25/17 1122 <Electronically signed by Michael Segal DO> Date Michael Segal DO CC: Date Dictated: 04/25/17 1120 Date Transcribed: 04/25/17 1120 Hand Hardener: Michael Segal DO Signed Lydia Montezon Start: 03-18-2017 End: 03-18-2017 Pulmonary Function Report Comp Comments: See Note; NOTES: [facility] Pulmonary Services/Neurology [address] [place] [address] MR#: [id number] Acct: [id number] Name: ADRIANA DILL Rep #: [id number] : 1955 62 From: Ernesto Webster MD Referring Dr: Stanley Marcos MD Status: REG CLI Ordering Dr: Date: Location: [facility] Sex: F C Pulmonary Function Report Comp Pulmonary Function Report Comp: COMPLETE PULMONARY FUNCTION TEST INTERPRETATION Brief HPI: Patient is a 62 year old female, currently under the care of Dr. Marcos, who presents to [facility] for complete pulmonary function tests secondary to diagnosis of shortness of breath. Respiratory therapist reports good effort and reproducible results. Interpretation: Forced expiration spirometry shows no large airways obstructive ventilatory defect with an FEV1 of 64 % predicted. There is no significant bronchodilator response by ATS criteria. Spirograms are of good quality and plateau normally. The respiratory flow volume loop shows a normal pattern. Lung volumes by body plethysmography show a decreased total lung capacity at 3.74 L, 77 % predicted. All other lung volumes are reduced symmetrically. Lung volume measurements are consistent with a mild restrictive ventilatory defect. Diffusion capacity by carbon monoxide is severely reduced at 43 % predicted. The airway resistance is normal. Previous pulmonary function tests from 11/26/2011 show a significant change in FVC, FEV1, TLC and DLCO. Impression: Irreversible mild large airways restrictive ventilatory defect with a reduction diffusion capacity out of proportion indicating a probable pulmonary vascular disorder. There has been significant worsening in pulmonary function as compared to 2011. 03/18/17 1615 <Electronically signed by Ernesto Webster MD> Date Ernesto Webster MD CC: Ernesto Webster MD; Lydia Marte DO Date Dictated: 03/18/171609 Date Transcribed: 03/18/171609 Hand Hardener: DAVID Signed Lydia Marte Start: 03-05-2017 End: 03-05-2017 Echo Transesophageal (JOÃO) Comments: See Note; NOTES: [facility] Cardiovascular Services [address] [place] [address] Echo Transesophageal (JOÃO) 03/05/17 1009 MR#: [id number] Acct: [id number] Name: ADRIANA DILL Rep #: [id number] : 1955 62 From: Stanley Marcos MD Attending Dr: Stanley Marcos MD Status: REG CLI Ordering Dr: Stanley Marcos MD Date: 03/05/17 Location: [facility] Sex: F C Admitted: Reason For Study: Aortic stenosis Medication JOÃO probe passed without difficulty. Lxidrivxc94pd gargled and swallowed. Versed 2 mg given slow IVP. Fentanyl 25 mcg given slow IVP. Performed a rapid injection of agitated mix [...] negative for right to left interatrial shunt. Normal left atrium. Normal right atrium. No RENETTA [...] Valve Normal pulmonic valve. Vessels Normal aortic root. Normal arch. The pulmonary artery is normal [...] eccentric aortic valve insufficiency. Ordering Physician: Stanley Marcos Referring Physician: Lydia Marte M.D. Performed By: Shayna Pillai CELIA 03/05/17 1445 Date Stanley Marcos MD CC: Stanley Marcos MD; Lydia Matre DO Date Dictated: 03/05/17 1009 Date Transcribed: 03/05/17 1445 Hand Hardener: Signed Lydia Marte Start: 09-17-2016 End: 09-17-2016 Chest PA and Lateral Comments: See Note; NOTES: [facility] Imaging Services [address] [place] [address] [address] Chest PA and Lateral MR#: [id number] Acct: [id number] Name: ADRIANA DILL Rep #: [id number] : 1955 F 61 From: Daryn Phelan MD PCP: Lydia Marte DO Status: REG CLI Study: Chest PA and Lateral Date of Exam: 09/17/16 Exam# [id number] Ordering Dr: Shekhar Sharpe STUDY: X-RAY CHEST REASON FOR EXAM: Female, 61 years old. Hypoxia. TECHNIQUE: PA and lateral views of the chest. COMPARISON: Comparison is made with prior study dated December 17, 2014. FINDINGS: Stable elevation of the right hemidiaphragm. Mild increased markings at the lung bases suggestive of scarring. There is no demonstrated pleural abnormality. Normal size heart. Normal mediastinum and latoya. Normal visualized pulmonary arteries. There is atherosclerotic calcification of the aortic arch with tortuosity. There are diffuse degenerative changes of the visualized thoracic spine. Normal visualized ribs, clavicles, and shoulders. There is no demonstrated abnormality of the visualized soft tissue structures of the upper abdomen. RAD/Chest PA and Lateral IMPRESSION: Mild elevation of the right hemidiaphragm. Findings suggest some mild bibasilar scarring. There has been essentially no change since prior study. Electronically Signed: Daryn Phelan MD at 15:02 EST Tel [phone], Service support [phone], CC: Lydia Marte DO; Shekhar Sharpe Hand Hardener: Signed Shekhar Sharpe Work Phone: Start: 08-26-2016 End: 08-26-2016 Echocardiogram Complete Comments: See Note; NOTES: [facility] Cardiovascular Services [address] [place] [address] Echo Complete 08/26/16 1131 MR#: [id number] Acct: [id number] Name: ADRIANA DILL Rep #: [id number] : 1955 61 From: Stanley Marcos MD Attending Dr: Stanley Marcos MD Status: REG CLI Ordering Dr: Stanley Marcos MD Date: 08/26/16 Location: [facility] Sex: F C Admitted: Reason For Study: ASHD Procedure This was a 2D Doppler, [...] insufficiency. Tricuspid Valve Normal tricuspid valve. Trivial tricuspid [...] sniff. Pericardium/Pleural No pericardial effusion. MMode/2D Measurements & Calculations LVIDd: 3.8 cm IVSd: 1.1 cm LVOT diam: 2.0 cm LVIDs: 2.5 cm LVPWd: 1.1 cm LVOT area: 3.2 cm2 RVDd: 3.4 cm FS: 34.1 % Ao root diam: 4.1 cm LAV(MOD-bp): 50.2 ml LA A4 area: 20.0 cm2 LA dimension: 3.0 cm LAV(MOD-bp) Indexed: 24.5 ml/m2 LAV(MOD-sp2): 42.1 ml LAV(MOD-sp4): 59.2 ml RA A4 area: 12.9 cm2 Doppler Measurements & Calculations MV E max brina: 74.2 cm/sec Lat Peak E' Brina: [...] V1 mean P.0 mmHg Ao mean P.8 mmHg LV V1 mean: 83.0 cm/sec Ao V2 VTI: 68.5 cm LV V1 VTI: 25.7 cm CELESTE(I,D): 1.2 cm2 CELESTE(V,D): 1.2 cm2 PA V2 max: 83.6 cm/sec PI end-d brina: 124.8 cm/sec TR max brina: 265.0 cm/sec TR max P.3 mmHg Interpretation Summary The estimated ejection fraction is 65 %. Stage 2 diastolic dysfunction. The left atrium is mildly enlarged. Right ventricular systolic pressure estimated to be 33 mmHg. Mild to moderate aortic stenosis. Trivial aortic valve insufficiency. Fusion between left and right coronary cusps. Moderate restriction of the aortic valve. Mildly dilated aortic root. Compared to echo report dated 08/08/2014, LV function has remained the same, but aortic valve area has decreased from 1.7 to 1.2 mm2. RVSP has remained the same. Ordering Physician: Stanley Marcos Referring Physician: Lydia Marte Performed By: Lina Bee RDCS 08/26/16 1558 Date Stanley Marcos MD CC: Stanley Marcos MD; Lydia Min [place] Date Dictated: 08/26/16 1131 Date Transcribed: 08/26/16 2425 Hand Hardener: Signed Lydia Marte Start: 08-18-2016 End: 08-18-2016 Bilat Scrn Digital AND CAD Comments: See Note; NOTES: [facility] Imaging Services [address] [place] [address] Verdana 4d Bilat Scrn Digital AND CAD MR#: [id number] Acct: [id number] Name: ADRIANA DILL Rep #: [id number] : 1955 F 61 From: Calixto Main MD PCP: Lydia Marte DO Status: REG CLI Study: Bilat Scrn Digital AND CAD Date of Exam: 08/18/16 Exam# [id number] Ordering Dr: Lydia Marte DO MAMMOGRAPHY - BILATERAL SCREENING REASON FOR EXAM: Female, 61 years old. Routine annual screening examination. PERTINENT HISTORY: Grandmother with breast cancer. TECHNIQUE: Digital examination. Mediolateral oblique (MLO) and craniocaudad (CC) views [...] no significant change since the prior study. HPBI/Bilat Scrn Digital AND CAD IMPRESSION: Stable bilateral screening mammogram. Yearly follow-up mammogram recommended. (A) ASSESSMENT CATEGORY: BIRADS Category 2: Benign. A letter regarding these results will be sent to the patient by the facility within 30 days. BR2 Approximately 10% of breast cancers are not detected by mammography. A normal mammogram should not delay biopsy of a clinically suspicious abnormality. [id number] Electronically Signed: Modesto Main MD at 10:13 EST Tel , Service support [phone], CC: Lydia Marte DO Hand Hardener: Signed Lydia Marte Work Phone: Start: 07-29-2016 End: 07-29-2016 L/S Spine Min 4 Views Comments: See Note; NOTES: [facility] Imaging Services [address] [place] [address] [address] L/S Spine Min 4 Views MR#: [id number] Acct: [id number] Name: ADRIANA DILL Rep #: [id number] : 1955 F 61 From: Juvenal Zarate MD PCP: Lydia Marte DO Status: REG CLI Study: L/S Spine Min 4 Views Date of Exam: 07/29/16 Exam# [id number] Ordering Dr: Lydia Marte DO STUDY: X-RAY - LUMBAR SPINE REASON FOR EXAM: Female, 61 years old. Low back pain. TECHNIQUE: 5 view(s) of the lumbar spine were obtained. COMPARISON: None FINDINGS: No acute abnormality. No compression fractures. 5 mm anterolisthesis of L4 on L5. Otherwise normal curvature and alignment. Mild to moderate multilevel degenerative disc changes especially at L4-L5. Multilevel facet joint degenerative changes. Atherosclerotic calcifications are seen. RAD/L/S Spine Min 4 Views IMPRESSION: Degenerative changes including mild malalignment of L4 on L5. No acute abnormality. Electronically Signed: Juvenal Zarate MD at 17:01 EST , Service support [phone], CC: Lydia Marte DO Hand Hardener: Signed Lydia Marte Work Phone: Start: 12-25-2014 End: 12-25-2014 Emergency Department Summary Comments: See Note; NOTES: [facility] Medical Records Department [address] [place] [address] Emergency Department Summary MR#: [id number] Acct: [id number] Name: ADRIANA DILL Rep #: [id number] : 1955 59 From: Gema Marr PCP: [...] chest wall pain. She will be given Percocet for breakthrough pain and incentive spirometer. She was given precautions to look out for shingles rash and seek care right away if she develops that. DISPOSITION: Discharge. DIAGNOSIS: Chest wall pain. MD Татьяна Rhoades C: Jeanne Quinones DO T: [facility] JOB: [id number] 12/25/14 0056 <Electronically signed by Gema Marr > Date Gema Marr CC: Jeanne Quinones DO Date Dictated: 12/17/14 1248 Date Transcribed: 12/17/141247 Hand Hardener: Signed Lydia Marte Start: 12-18-2014 End: 12-18-2014 12 lead ECG Comments: See Note; NOTES: [facility] Cardiovascular Services [address] [place] [address] 12 Lead EKG 12/17/14 1129 MR#: [id number] Acct: [id number] Name: ADRIANA DILL Rep #: [id number] : 1955 59 From: Sj Rowe MD Attending Dr: Status: DEP ER Ordering Dr: Gema Marr Date: 12/17/14 Location: ED Sex: F C Admitted: Test Reason : DYSRHYTHMIA Blood Pressure : / mmHG Vent. Rate : 067 BPM Atrial Rate : 067 BPM P-R Int : 174 ms QRS Dur : 096 ms QT Int : 424 ms P-R-T Axes : 016 -01 007 degrees QTc Int : 448 ms Normal sinus rhythm Normal ECG Confirmed by SJ ROWE MD ([id number]), associate entertainment editor MATHIEU SIMON ([id number]) on 12/18/2014 2 :39:37 PM Referred By: OLIVA Confirmed By:SJ ROWE MD 12/18/14 1439 Date Sj Rowe MD CC: Jeanne Quinones DO Date Dictated: 12/17/14 1129 Date Transcribed: 12/17/141128 Hand Hardener: Elizabeth Marte Start: 12-17-2014 End: 12-17-2014 Discharge Instruction Comments: See Note; NOTES: [facility] Medical Records Department [address] [place] [address] Discharge Instruction 12/17/14 1244 MR#: [id number] Acct: [id number] Name: ADRIANA DILL Rep #: [id number] : 1955 59 From: Gema Marr PCP: Jeanne Quinones DO Status: REG ER ED Disposition - Plan for ED Patient: Chief Complaint: Shortness of Breath Instructions: ED Chest Wall Pain, Costochondritis Prescriptions: Oxycodone HCl/Acetaminophen [Percocet 5/325] 1 tablet PO Q6H PRN PRN #10 tablet PRN Reason: Pain Referrals: Jeanne Quinones DO [Primary Care Provider] - 3-5 Days What to do if you have Problems For any increased pain, shortness of breath, bleeding, nausea or vomiting, chest pain, or any unexpected problems, contact your doctor. Call [facility] ) or report to the closest Emergency Room. Call 911 if necessary. 12/17/14 1246 <Electronically signed by Gema Marr > Date Gema Marr Cosigner Signature (If Indicated): Date CC: Jeanne Newman Start: 12-17-2014 End: 12-17-2014 Chest PA and Lateral Comments: See Note; NOTES: [facility] Imaging Services [address] [place] [address] Radiology Report MR#: [id number] Acct: [id number] Name: ADRIANA DILL Rep #: [id number] : 1955 F 59 From: Daryn Phelan MD PCP: Jeanne Quinones DO Status: REG ER Study: Chest PA and Lateral Date of Exam: 12/17/14 Exam# [id number] Ordering Dr: Gema Marr STUDY: X-RAY CHEST REASON FOR EXAM: Female, 59 years old. Chest pain. TECHNIQUE: PA and lateral views of the chest. COMPARISON: Comparison is made with prior study dated April 14, 2012. FINDINGS: EKG electrodes are seen. There is elevation of the right hemidiaphragm with a mild increased markings at the right lung base suggestive of atelectasis. There is no demonstrated pleural abnormality. Normal size heart. Normal mediastinum and latoya. Normal visualized pulmonary arteries. There is atherosclerotic calcification of the aortic arch with tortuosity. There are diffuse degenerative changes of the visualized thoracic spine. Increased kyphosis. Normal visualized ribs, clavicles, and shoulders. There is no demonstrated abnormality of the visualized soft tissue structures of the upper abdomen. IMPRESSION: There is elevation of the right hemidiaphragm with linear atelectasis at the right lung base. Electronically Signed: Daryn Phelan MD at 12:26 EDT Tel [phone], Service support [phone], RAD/Chest PA and Lateral IMPRESSION: There is elevation of the right hemidiaphragm with linear atelectasis at the right lung base. Electronically Signed: Daryn Phelan MD at 12:26 EDT Tel [phone], Service support [phone], CC: Gema Quniones DO Hand Hardener: Signed Lydia Marte Start: 08-08-2014 End: 08-08-2014 Echocardiogram Complete Comments: See Note; NOTES: [facility] Cardiovascular Services [address] [place] [address] Echo Complete 08/08/14 1245 MR#: [id number] Acct: [id number] Name: ADRIANA DILL Rep #: [id number] : 1955 59 From: Stanley Marcos MD Attending Dr: Stanley Marcos MD Status: REG CLI Ordering Dr: Stanley Marcos MD Date: 08/08/14 Location: [facility] Sex: F C Admitted: Procedure This was a 2D Doppler, Color Flow transthoracic echocardiogram. The exam was of adequate technical quality. The study was technically difficult. Contrast injection was performed. Exam performed in department. Left Ventricle Normal size and thickness. The estimated ejection fraction is 65 %. No regional wall motion abnormalities noted. Right Ventricle Normal size and thickness. Normal systolic function. Atria Normal left atrium. Normal right atrium. Normal atrial septum. Mitral Valve Bileaflet diffuse mitral valve thickening. Mild mitral annular calcification extending into the posterior leaflet. There is no mitral valve stenosis. Tricuspid Valve Normal tricuspid valve. Trivial tricuspid valve insufficiency. Right ventricular systolic pressure estimated to be 32 mmHg. Aortic Valve Trisinus/trileaflet aortic valve. Moderate diffuse aortic valve thickening. Moderate diffuse aortic valve calcification. Moderate restriction of the aortic valve. Fusion of the right and left coronary cusps essentially creating a functional bicuspid aortic valve. Mild aortic stenosis. Peak aortic valve gradient 27 mmHg. Mean aortic valve gradient 14 mmHg. Pulmonic Valve Normal pulmonic valve. Great Vessels Normal aortic root. Mild atherosclerosis of the aortic arch. Normal inferior vena cava. Inferior vena cava collapse with sniff. Pericardium/Pleural No pericardial effusion. Medication Performed a rapid injection of agitated mix of 9 cc saline and 1cc air to assess for atrial septal defect. Definity0.2ml given slow IV push to enhance endocardial definition. LVIDd: 4.1 cm IVSd: 1.1 cm LVOT [...] Brina: Ao V2 max: 259.7 cm/sec 85.6 cm/sec 13.3 cm/sec 7.4 cm/sec Ao max P.0 mmHg MV A max brina: Ao V2 mean: 51.7 cm/sec 175.5 cm/sec MV E/A: 1.7 Ao mean P.0 mmHg Ao V2 VTI: 46.1 cm CELESTE(I,D): 2.0 cm2 CELESTE(V,D): 1.7 cm2 LV V1 max: 117.7 cm/sec SV(LVOT): 91.4 ml PA V2 max: 97.9 cm/sec TR max brina: LV V1 max P.5 mmHg PA max P.8 mmHg 261.2 cm/sec LV V1 mean P.2 mmHg TR max P.3 mmHg LV V1 mean: 85.9 cm/sec LV V1 VTI: 23.8 cm E/E' lat: 6.4 E/E' med: 11.6 Interpretation Summary The estimated [...] similar to previous study. Ordering Physician: Stanley Marcos Performed By: PIETRO Jiménez 08/08/14 1600 Date Stanley Marcos MD CC: Stanley Marcos MD; Jeanne Fast DO Date Dictated: 08/08/14 1245 Date Transcribed: 08/08/14 1607 Hand Hardener: Signed Lydia Marte Appendgissell Lyon Plan of Treatment Date Care Activity Detail Author Start: 02-22-2024 End: 02-22-2024 Patient encounter procedure 02/22/2024 2:00 PM EDT Office Visit [facility] [address] [place] [id number] Ophelia Fonseca MD [address] [address] [facility] Start: 05-21-2023 COVID-19 Vaccine ( season) COVID-19 Vaccine ( season) [facility] Start: 10-26-2022 Procedure Education Eprescribed prescriptions (G8553) [facility] Work Phone: Start: 02-06-2023 Provider Instructions for Treatment Follow up if no improvement or if symptoms worsen [facility]; [facility] Work Phone: Start: 04-20-2022 Procedure Education Eprescribed prescriptions (G8553) [facility]; [facility] Work Phone: Start: 04-20-2022 Provider Instructions for Treatment [facility]; [facility] Work Phone: Start: 04-08-2022 Urnls dip stick/tablet reagent auto microscopy URINALYSIS, W/ MICRO (92817) [facility]; [facility] Work Phone: Start: 04-08-2022 Procedure Education Eprescribed prescriptions (G8553) [facility]; [facility] Work Phone: Start: 04-08-2022 Provider Instructions for Treatment Follow up [facility]; [facility] Work Phone: Start: 04-08-2022 Blood count manual cell count each CBC with auto diff (62771) [facility]; [facility] Work Phone: Start: 04-08-2022 Comprehensive metabolic panel METABOLIC PANEL, COMPREHENSIVE (68445) [facility]; [facility] Work Phone: Start: 04-08-2022 Urnls dip stick/tablet reagent auto microscopy URINALYSIS, W/ MICRO (12360) [facility]; [facility] Work Phone: Start: 04-08-2022 Urine albumin quantitative MICROALBUMIN: CREATININE RATIO (03827) AND (79451) [facility]; [facility] Work Phone: Start: 04-08-2022 Culture bct isol&prsmptv id isolate ea urine URINE ABDOULAYE CULTURE-IDENTIFICATN (76909) [facility]; [facility] Work Phone: Start: 10-08-2021 Procedure Education Eprescribed prescriptions (G8553) [facility]; [facility] Work Phone: Start: 10-08-2021 Provider Instructions for Treatment Follow up if no improvement or if symptoms worsen [facility]; [facility] Work Phone: Start: 07-18-2021 Procedure Education Eprescribed prescriptions (G8553) [facility]; [facility] Work Phone: Start: 05-09-2021 Procedure Education Eprescribed prescriptions (G8553) [facility]; [facility] Work Phone: Start: 05-09-2021 Provider Instructions for Treatment Reviewed Diagnostic Tests [facility]; [facility] Work Phone: Start: 03-17-2021 Procedure Education Eprescribed prescriptions (G8553) [facility]; [facility] Work Phone: Start: 03-17-2021 Provider Instructions for Treatment [facility]; [facility] Work Phone: Start: 03-17-2021 25 hydroxy includes fractions if performed CALCIFEDIOL (93659) [facility]; [facility] Work Phone: Start: 03-17-2021 Assay of thyroid stimulating hormone tsh TSH (94173) [facility]; [facility] Work Phone: Start: 03-17-2021 Urnls dip stick/tablet reagent auto microscopy URINALYSIS, W/ MICRO (06243) [facility]; [facility] Work Phone: Start: 03-17-2021 Urine albumin quantitative MICROALBUMIN: CREATININE RATIO (26199) AND (54571) [facility]; [facility] Work Phone: Start: 03-17-2021 Comprehensive metabolic panel METABOLIC PANEL, COMPREHENSIVE (47309) [facility]; [facility] Work Phone: Start: 03-17-2021 Lipid panel LIPID PANEL (75869) [facility]; [facility] Work Phone: Start: 03-17-2021 Blood count complete auto&auto difrntl wbc CBC W/AUTO DIFF WBC (02695) [facility]; [facility] Work Phone: Start: 10-01-2020 Procedure Education Eprescribed prescriptions (G8553) [facility]; [facility] Work Phone: Start: 10-01-2020 Provider Instructions for Treatment [facility]; [facility] Work Phone: Start: 09-16-2020 Procedure Education Eprescribed prescriptions (G8553) [facility]; [facility] Work Phone: Start: 09-16-2020 Provider Instructions for Treatment [facility]; [facility] Work Phone: Start: 05-16-2020 Procedure Education Eprescribed prescriptions (G8553) [facility] Work Phone: Start: 05-16-2020 Provider Instructions for Treatment [facility] Work Phone: Start: 05-16-2020 TSH Qn TSH (74921) [facility] Work Phone: Start: 05-16-2020 Urnls dip stick/tablet reagent auto microscopy URINALYSIS, W/ MICRO (49811) [facility] Work Phone: Start: 05-16-2020 Urine albumin quantitative MICROALBUMIN: CREATININE RATIO (28614) AND (39774) [facility] Work Phone: Start: 05-16-2020 Comprehensive metabolic panel METABOLIC PANEL, COMPREHENSIVE (36036) [facility] Work Phone: Start: 05-16-2020 Blood count complete auto&auto difrntl wbc CBC W/AUTO DIFF WBC (11668) [facility] Work Phone: Start: 05-16-2020 Lipid panel LIPID PANEL (28153) [facility] Work Phone: Start: 05-16-2020 25 hydroxy includes fractions if performed CALCIFIDIOL (05497) VIT D 25 [facility] Work Phone: Start: 05-10-2020 Procedure Education Eprescribed prescriptions (G8553) [facility] Work Phone: Start: 05-10-2020 Provider Instructions for Treatment [facility] Work Phone: Start: 05-10-2020 Urnls dip stick/tablet rgnt non-auto w/o micrscp Urinalysis, Office (68689) [facility] Work Phone: Start: 04-25-2020 Culture bct isol&prsmptv id isolate ea urine URINE ABDOULAYE CULTURE-IDENTIFICATN (78537) [facility] Work Phone: Start: 01-12-2020 Fall risk assessment Falls Risk Assessment [facility] Start: 01-04-2020 Procedure Education Eprescribed prescriptions (G8553) [facility] Work Phone: Start: 01-04-2020 Provider Instructions for Treatment [facility] Work Phone: Start: 02-27-2019 Patient Education Stye: eye infection [facility] Work Phone: Start: 02-27-2019 Procedure Education Eprescribed prescriptions (G8553) [facility] Work Phone: Start: 02-27-2019 Provider Instructions for Treatment Follow up if no improvement or if symptoms worsen [facility] Work Phone: Start: 09-01-2018 Provider Instructions for Treatment [facility] Work Phone: Start: 08-16-2018 Provider Instructions for Treatment [facility] Work Phone: Start: 08-16-2018 Comprehensive metabolic panel METABOLIC PANEL, COMPREHENSIVE (68037) [facility] Work Phone: Payers Date Payer Category Payer Medicare [employer] MA[employer]ED M [employer]ARE [employer] [facility] GOLD PLUS HMO [id number] 2022-Present [id number] [place] [id number] 2022 Private Health Insurance [id number] 2021 Unknown [id number] 2017 Unknown [id number] 2014 Private Health Insurance [id number] 2013 Medicare [id number] 2013 Medicare [id number] 1955 Unknown [id number] 1955 Unknown [id number] 1955 Unknown [id number] 1955 Unknown [id number] Unknown Unknown [id number] Social History Date Type Detail Facility Start: 09-02-2023 Caffeine Use Former smoker [facility] Work Phone: Functional Status Date Assessment Result Facility 02-15-2020 LP-IR Score LP-IR Score 35 [facility] Work Phone: Clinical Notes 09-02-2023 Assessment & Plan Note - Ophelia Fonseca MD - 09/02/2023 10:43 PM ESTAssessment & Plan Note - Ophelia Fonseca MD - 09/02/2023 10:43 PM ESTPatient Instructions Note Date & Type Note Facility 09-02-2023 Evaluation + Plan note Associ ated Problem(s): Bipolar 1 disorder (HCC) Currently on Zoloft , effexor, Lamictal seems to work the best as well as Trazodone Advised use mag supplementation or melatonin and stop Trazodone Advised to discuss with her psychiatrist to stop Effexor [facility] 09-02-2023 Miscellaneous Notes Associate d Problem(s): Bipolar 1 disorder (HCC) Currently on Zoloft , effexor, Lamictal seems to work the best as well as Trazodone Advised use mag supplementation or melatonin and stop Trazodone Advised to discuss with her psychiatrist to stop Effexor Associated Problem(s): Lipid disorder Controlled on gemfibrozil , statin and zetia Associated Problem(s): A-fib (HCC) S/p ablation, following up with cardiology group in [place] Currently on on eliquis, metoprolol, verapamil. Associated Problem(s): MEGHAN (obstructive sleep apnea) Seeing sleep medicine Ashwini in [place] for CPAP Associated Problem(s): Hypertension controlled on ramipiril and hydrochlorothiazide Will wait on records , blood work to be repeated if 6 months out Advised to check blood pressure at home periodically documented in this encounter [facility] 09-02-2023 Evaluation + Plan note Associ ated Problem(s): Lipid disorder Controlled on gemfibrozil , statin and zetia [facility] 09-02-2023 Evaluation + Plan note Associ ated Problem(s): A-fib (HCC) S/p ablation, following up with cardiology group in [place] Currently on on eliquis, metoprolol, verapamil. [facility] 09-02-2023 Evaluation + Plan note Associ ated Problem(s): MEGHAN (obstructive sleep apnea) Seeing sleep medicine Ashwini in [place] for CPAP [facility] 09-02-2023 Evaluation + Plan note Associ ated Problem(s): Hypertension controlled on ramipiril and hydrochlorothiazide Will wait on records , blood work to be repeated if 6 months out Advised to check blood pressure at home periodically [facility] 09-02-2023 History of Presen t illness Narrative Return in about 6 months (around 03/03/2024) for MWV, please get records from , sleep, pulmonology and cardiology in [place] . I faxed for records Dr. Marte, [facility] Dr[facility],[place] [facility] Chief Complaint Patient presents with [facility] HPI: Adriana Dill is a 68-year-old female presenting today as a new patient to establish care. Has PMH of A-fib, bipolar 1 disorder, depression, hyperlipidemia and pulmonary hypertension. Dr.Kathleen Solomon in [place]. 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 Afib: Chronic since 2003 , admitted her in at that time, tried adenosin and didn't help. Ablation didn't work. Then was seen in [facility] with another ablation that seems to work better Following with the [place] [facility]. Currently on on eliquis, metoprolol, verapamil. HTN: Chronic , controlled on ramipiril and hydrochlorothiazide as well as potassium supplementation. Bipolar disorder: Does telehealth with [place] [facility] center , currently taking Zoloft , effexor and lamictal Have manic episode on Cymbalta refinanced her house twice and went on a cruise and maxed out on credit cards. Low back pain: through pain clinic in [place] for chronic low back pain and seems to have good success with back injections and in the process of getting a pain stimulator. Only take tramadol once every 2-3 months. Past Medical History: Diagnosis Date A-fib (HCC) Bipolar 1 disorder (HCC) Depression Lipid disorder Pulmonary HTN (HCC) Past Surgical History: Procedure Laterality Date APPENDECTOMY CARDIAC ELECTROPHYSIOLOGY STUDY AND ABLATION TUBAL LIGATION Family History Problem Relation Age of Onset Colon cancer Mother Heart disease Father Social History Tobacco Use Smoking status: Former Types: Cigarettes Quit date: 2000 Years since quittin.9 Passive exposure: Never Smokeless tobacco: Never Vaping Use Vaping Use: Never used Substance Use Topics Alcohol use: Not Currently Drug use: Never Review of Systems Vitals: 09/02/23 1440 BP: 136/82 BP Location: Right arm Patient Position: Sitting BP Cuff Size: X-large Adult Pulse: 74 Resp: 16 Temp: 98.1 F (36.7 C) TempSrc: Temporal SpO2: 92% Weight: 104.3 kg (230 lb) Height: 5' 4 Estimated body mass index is 39.48 kg/m as calculated from the following: Height as of this encounter: 5' 4 . Weight as of this encounter: 104.3 kg (230 lb). Physical Exam Constitutional: General: She is not in acute distress. Appearance: She is not ill-appearing. HENT: Head: Normocephalic and atraumatic. Nose: Nose normal. Mouth/Throat: Mouth: Mucous membranes are moist. Pharynx: Oropharynx is clear. No oropharyngeal exudate or posterior oropharyngeal erythema. Eyes: Extraocular Movements: Extraocular movements intact. Conjunctiva/sclera: Conjunctivae normal. Pupils: Pupils are equal, round, and reactive to light. Cardiovascular: Rate and Rhythm: Normal rate and regular rhythm. Pulses: Normal pulses. Heart sounds: Murmur (soft systolic murmur) heard. No gallop. Pulmonary: Effort: Pulmonary effort is normal. Breath sounds: Normal breath sounds. No wheezing, rhonchi or rales. Chest: Chest wall: No tenderness. Abdominal: General: Abdomen is flat. Bowel sounds are normal. There is no distension. Palpations: Abdomen is soft. There is no mass. Tenderness: There is no abdominal tenderness. There is no right CVA tenderness, left CVA tenderness, guarding or rebound. Musculoskeletal: General: No tenderness. Normal range of motion. Cervical back: Normal range of motion and neck supple. No rigidity. No muscular tenderness. Right lower leg: No edema. Left lower leg: No edema. Lymphadenopathy: Cervical: No cervical adenopathy. Skin: General: Skin is warm. Findings: No erythema or rash. Neurological: General: No focal deficit present. Mental Status: She is alert and oriented to person, place, and time. Sensory: No sensory deficit. Motor: No weakness. Gait: Gait normal. Psychiatric: Mood and Affect: Mood normal. Behavior: Behavior normal. Thought Content: Thought content normal. Judgment: Judgment normal. OARRS/NARxCHECK Report Received and Assessed: No data found Date controlled substance agreement signed: No data found Date of last drug screen: No data found Functional Assessment: No data found @Exam@ PHQ9: MICHELLE-7 Tobacco Counseling: Counseling given: Not Answered Patient's Medications New Prescriptions No medications on file Previous Medications CO-ENZYME Q-10 30 MG CAPSULE Take 1 (one) capsule (30 mg total) by mouth 3 (three) times a day . ELIQUIS 5 MG TAB Take 1 (one) tablet (5 mg total) by mouth 2 (two) times a day . EZETIMIBE (ZETIA) 10 MG TABLET Take 1 (one) tablet (10 mg total) by mouth daily . GEMFIBROZIL (LOPID) 600 MG TABLET Take 1 (one) tablet (600 mg total) by mouth 2 (two) times a day . HYDROCHLOROTHIAZIDE (HYDRODIURIL) 25 MG TABLET Take 1 (one) tablet (25 mg total) by mouth daily . LAMOTRIGINE (LAMICTAL) 200 MG TABLET Take 1 (one) tablet (200 mg total) by mouth daily . METOPROLOL TARTRATE (LOPRESSOR) 100 MG TABLET Take 1 (one) tablet (100 mg total) by mouth 2 (two) times a day . MULTIVITAMIN (THERAGRAN) PER TABLET Take 1 (one) tablet by mouth . POTASSIUM CHLORIDE SA (K-DUR,KLOR-CON M10) 10 MEQ TABLET Take 1 (one) tablet (10 mEq total) by mouth daily . RAMIPRIL (ALTACE) 10 MG CAPSULE Take by mouth daily . SERTRALINE (ZOLOFT) 100 MG TABLET Take 2 (two) tablets (200 mg total) by mouth daily . TRAMADOL (ULTRAM) 50 MG TABLET TAKE 1 TO 2 TABLETS BY MOUTH up to TWICE DAILY NEEDED FOR PAIN. This must last 14 days. TRAZODONE (DESYREL) 100 MG TABLET Take 2 (two) tablets (200 mg total) by mouth nightly . VENLAFAXINE (EFFEXOR-XR) 37.5 MG 24 HR CAPSULE Take 1 (one) capsule (37.5 mg total) by mouth daily . VERAPAMIL SR (CALAN-SR) 120 MG ER TABLET Take 1 (one) tablet (120 mg total) by mouth 2 (two) times a day . Modified Medications No medications on file Discontinued Medications No medications on file Health Maintenance Due Topic Date Due Tetanus: Every 10yrs Never done Colorectal Cancer Screening/Monitoring Never done Dexa Scan Never done Wellness Visit Never done Depression Screening (PHQ-2/9) Never done Hepatitis C Screening Never done Mammogram Never done Zoster Vaccines (1 of 2) Never done Falls Risk Assessment Never done COVID-19 Vaccine (2022- season) 2023 Assessment & Plan Problem List Items Addressed This Visit Respiratory MEGHAN (obstructive sleep apnea) Seeing sleep medicine Ashwini in [place] for CPAP Cardiovascular and Mediastinum A-fib (HCC) - Primary S/p ablation, following up with cardiology group in [place] Currently on on eliquis, metoprolol, verapamil. Relevant Medications ezetimibe (ZETIA) 10 mg tablet gemfibroziL (LOPID) 600 MG tablet hydroCHLOROthiazide (HYDRODIURIL) 25 MG tablet metoprolol tartrate (LOPRESSOR) 100 MG tablet ramipriL (ALTACE) 10 MG capsule verapamil sr (CALAN-SR) 120 MG er tablet Hypertension controlled on ramipiril and hydrochlorothiazide Will wait on records , blood work to be repeated if 6 months out Advised to check blood pressure at home periodically Relevant Medications hydroCHLOROthiazide (HYDRODIURIL) 25 MG tablet metoprolol tartrate (LOPRESSOR) 100 MG tablet ramipriL (ALTACE) 10 MG capsule verapamil sr (CALAN-SR) 120 MG er tablet Other Relevant Orders TSH with Reflex Free T4 Microalbumin/Creatinine Ratio, UR Random Hemoglobin A1c Lipid Panel [facility] Other Bipolar 1 disorder (HCC) Currently on Zoloft , effexor, Lamictal seems to work the best as well as Trazodone Advised use mag supplementation or melatonin and stop Trazodone Advised to discuss with her psychiatrist to stop Effexor Relevant Medications sertraline (ZOLOFT) 100 MG tablet traZODone (DESYREL) 100 MG tablet venlafaxine (EFFEXOR-XR) 37.5 MG 24 hr capsule Lipid disorder Controlled on gemfibrozil , statin and zetia Other Visit Diagnoses Encounter for screening for malignant neoplasm of breast, unspecified screening modality Relevant Orders Mammography Screening Stepan Bilateral Abnormal finding of blood chemistry, unspecified Relevant Orders Hemoglobin A1c Return in about 6 months (around 03/03/2024) for MWV, please get records from , sleep, pulmonology and cardiology in [place] . OPHELIA FONSECA MD [facility] [address] [facility] [address] [facility] [address] Dept: [phone] documented in this encounter [facility] 09-02-2023 Instructions Ophelia Fonseca MD - 09/02/2023 3:04 PM EST Problem List Items Addressed This Visit Cardiovascular and Mediastinum A-fib (HCC) - Primary Relevant Medications ezetimibe (ZETIA) 10 mg tablet gemfibroziL (LOPID) 600 MG tablet hydroCHLOROthiazide (HYDRODIURIL) 25 MG tablet metoprolol tartrate (LOPRESSOR) 100 MG tablet ramipriL (ALTACE) 10 MG capsule verapamil sr (CALAN-SR) 120 MG er tablet Other Bipolar 1 disorder (HCC) Relevant Medications sertraline (ZOLOFT) 100 MG tablet traZODone (DESYREL) 100 MG tablet venlafaxine (EFFEXOR-XR) 37.5 MG 24 hr capsule If any referrals were placed at the time of your visit please allow 2 weeks for processing. If you haven't heard from anyone within 2 weeks please contact my office so we can look into the status of your referral. If you were given any labs today please ensure they are completed according to the directions given. Once labs are completed please allow 1-2 weeks for us to receive the results, review them, and let you know what steps, if any, are needed next. If you haven't heard from us after that please call to inquire. If labs were ordered to be done PRIOR to your next visit we will discuss the results at the time of your office visit. If any procedures or imaging studies were ordered that must be prior authorized please give us 2 weeks to get them approved. Once approved someone should call you to schedule them or give you a date and time that they were scheduled for. If you haven't heard anything within 2 weeks of the office visit please call the office so we can look into their status. Customer Service/Billing Questions: [phone] [facility] Assistance: [phone] or [phone] Financial Assistance: [phone] or [phone] Wednesday 7 am to 5 pm Wednesday 7 am to 5 pm Wednesday 7 am to 5 pm Wednesday 8 am to 2 pm documented in this encounter [facility] Name Dates Details How to Access Health Informa tion Online using Patient Portal and [employer] Apps Indication:Non-smoker Start:17-Mar-2021 Instruction Type:Patient Education Patient Instructions Indication:Non-smoker Start:17-Mar-2021 Instruction Type:Provider Instructions for Treatment obesity counseling Indication:Obstructive sleep apnea, adult Start:01-Oct-2020 Instruction Type:Provider Instructions for Treatment cardiovascular counseling Indication:Atrial fibrillation Start:01-Oct-2020 Instruction Type:Provider Instructions for Treatment How to Access Health Informa tion Online using Patient Portal and [employer] Apps Indication:Non-smoker Start:01-Oct-2020 Instruction Type:Patient Education Patient Instructions Indication:Non-smoker Start:01-Oct-2020 Instruction Type:Provider Instructions for Treatment Patient Instructions Indication:Non-smoker Start:16-Sep-2020 Instruction Type:Provider Instructions for Treatment How to Access Health Informa tion Online using Patient Portal and [employer] Apps Indication:Non-smoker Start:16-Sep-2020 Instruction Type:Patient Education How to access health informa tion online Indication:Non-smoker Start:16-May-2020 Instruction Type:Patient Education How to access health informa tion online - Detail Indication:Non-smoker Start:16-May-2020 Instruction Type:Patient Education Patient Instructions Indication:Non-smoker Start:16-May-2020 Instruction Type:Provider Instructions for Treatment How to access health informa tion online Indication:Non-smoker Start:10-May-2020 Instruction Type:Patient Education How to access health informa tion online - Detail Indication:Non-smoker Start:10-May-2020 Instruction Type:Patient Education Patient Instructions Indication:Non-smoker Start:10-May-2020 Instruction Type:Provider Instructions for Treatment How to access health informa tion online Indication:BMI 35.0-35.9,adult Start:04-Jan-2020 Instruction Type:Patient Education How to access health informa tion online - Detail Indication:BMI 35.0-35.9,adult Start:04-Jan-2020 Instruction Type:Patient Education Patient Instructions Indication:BMI 35.0-35.9,adult Start:04-Jan-2020 Instruction Type:Provider Instructions for Treatment How to access health informa tion online Indication:Current non-smoker Start:27-Feb-2019 Instruction Type:Patient Education How to access health informa tion online - Detail Indication:Current non-smoker Start:27-Feb-2019 Instruction Type:Patient Education Patient Instructions Indication:Eye swelling, right Start:27-Feb-2019 Instruction Type:Provider Instructions for Treatment How to access health informa tion online Indication:Current non-smoker Start:01-Sep-2018 Instruction Type:Patient Education How to access health informa tion online - Detail Indication:Current non-smoker Start:01-Sep-2018 Instruction Type:Patient Education Patient Instructions Indication:Current non-smoker Start:01-Sep-2018 Instruction Type:Provider Instructions for Treatment How to access health informa tion online - Detail Indication:BMI 34.0-34.9,adult Start:16-Aug-2018 Instruction Type:Patient Education How to access health informa tion online Indication:BMI 34.0-34.9,adult Start:16-Aug-2018 Instruction Type:Patient Education Patient Instructions Indication:BMI 34.0-34.9,adult Start:16-Aug-2018 Instruction Type:Provider Instructions for Treatment How to access health informa tion online Indication:Bronchitis due to tobacco use Start:25-Nov-2016 Instruction Type:Patient Education How to access health informa tion online - Detail Indication:Bronchitis due to tobacco use Start:25-Nov-2016 Instruction Type:Patient Education Patient Instructions Indication:Bronchitis due to tobacco use Start:25-Nov-2016 Instruction Type:Provider Instructions for Treatment How to access health informa tion online Indication:Cough Start:11-Nov-2016 Instruction Type:Patient Education How to access health informa tion online - Detail Indication:Cough Start:11-Nov-2016 Instruction Type:Patient Education Patient Instructions Indication:Cough Start:11-Nov-2016 Instruction Type:Provider Instructions for Treatment How to access health informa tion online Indication:Bronchitis Start:24-Sep-2016 Instruction Type:Patient Education How to access health informa tion online - Detail Indication:Bronchitis Start:24-Sep-2016 Instruction Type:Patient Education Patient Instructions Indication:Bronchitis Start:24-Sep-2016 Instruction Type:Provider Instructions for Treatment How to access health informa tion online Indication:Chest congestion Start:17-Sep-2016 Instruction Type:Patient Education How to access health informa tion online - Detail Indication:Chest congestion Start:17-Sep-2016 Instruction Type:Patient Education Patient Instructions Indication:Chest congestion Start:17-Sep-2016 Instruction Type:Provider Instructions for Treatment How to access health informa tion online Indication:Current non-smoker Start:29-Jul-2016 Instruction Type:Patient Education How to access health informa tion online - Detail Indication:Current non-smoker Start:29-Jul-2016 Instruction Type:Patient Education Patient Instructions Indication:Current non-smoker Start:29-Jul-2016 Instruction Type:Provider Instructions for Treatment Patient Instructions Indication:Cellulitis Start:09-Aug-2015 Instruction Type:Provider Instructions for Treatment Patient Instructions Indication:Pharyngitis, acute Start:31-Jan-2013 Instruction Type:Provider Instructions for Treatment Patient Instructions Indication:Asthma, intrinsic, with status asthmaticus Start:28-Jun-2012 Instruction Type:Provider Instructions for Treatment Patient Instructions Indication:Hyperlipidemia Start:17-May-2012 Instruction Type:Provider Instructions for Treatment [facility]; [facility] Work Phone: Instructions* Name Dates Details How to Access Health Informa tion Online using Patient Portal and [employer] Apps Indication:Non-smoker Start:17-Mar-2021 Instruction Type:Patient Education Patient Instructions Indication:Non-smoker Start:17-Mar-2021 Instruction Type:Provider Instructions for Treatment obesity counseling Indication:Obstructive sleep apnea, adult Start:01-Oct-2020 Instruction Type:Provider Instructions for Treatment cardiovascular counseling Indication:Atrial fibrillation Start:01-Oct-2020 Instruction Type:Provider Instructions for Treatment How to Access Health Informa tion Online using Patient Portal and [employer] Apps Indication:Non-smoker Start:01-Oct-2020 Instruction Type:Patient Education Patient Instructions Indication:Non-smoker Start:01-Oct-2020 Instruction Type:Provider Instructions for Treatment Patient Instructions Indication:Non-smoker Start:16-Sep-2020 Instruction Type:Provider Instructions for Treatment How to Access Health Informa tion Online using Patient Portal and [employer] Apps Indication:Non-smoker Start:16-Sep-2020 Instruction Type:Patient Education How to access health informa tion online Indication:Non-smoker Start:16-May-2020 Instruction Type:Patient Education How to access health informa tion online - Detail Indication:Non-smoker Start:16-May-2020 Instruction Type:Patient Education Patient Instructions Indication:Non-smoker Start:16-May-2020 Instruction Type:Provider Instructions for Treatment How to access health informa tion online Indication:Non-smoker Start:10-May-2020 Instruction Type:Patient Education How to access health informa tion online - Detail Indication:Non-smoker Start:10-May-2020 Instruction Type:Patient Education Patient Instructions Indication:Non-smoker Start:10-May-2020 Instruction Type:Provider Instructions for Treatment How to access health informa tion online Indication:BMI 35.0-35.9,adult Start:04-Jan-2020 Instruction Type:Patient Education How to access health informa tion online - Detail Indication:BMI 35.0-35.9,adult Start:04-Jan-2020 Instruction Type:Patient Education Patient Instructions Indication:BMI 35.0-35.9,adult Start:04-Jan-2020 Instruction Type:Provider Instructions for Treatment How to access health informa tion online Indication:Current non-smoker Start:27-Feb-2019 Instruction Type:Patient Education How to access health informa tion online - Detail Indication:Current non-smoker Start:27-Feb-2019 Instruction Type:Patient Education Patient Instructions Indication:Eye swelling, right Start:27-Feb-2019 Instruction Type:Provider Instructions for Treatment How to access health informa tion online Indication:Current non-smoker Start:01-Sep-2018 Instruction Type:Patient Education How to access health informa tion online - Detail Indication:Current non-smoker Start:01-Sep-2018 Instruction Type:Patient Education Patient Instructions Indication:Current non-smoker Start:01-Sep-2018 Instruction Type:Provider Instructions for Treatment How to access health informa tion online - Detail Indication:BMI 34.0-34.9,adult Start:16-Aug-2018 Instruction Type:Patient Education How to access health informa tion online Indication:BMI 34.0-34.9,adult Start:16-Aug-2018 Instruction Type:Patient Education Patient Instructions Indication:BMI 34.0-34.9,adult Start:16-Aug-2018 Instruction Type:Provider Instructions for Treatment How to access health informa tion online Indication:Bronchitis due to tobacco use Start:25-Nov-2016 Instruction Type:Patient Education How to access health informa tion online - Detail Indication:Bronchitis due to tobacco use Start:25-Nov-2016 Instruction Type:Patient Education Patient Instructions Indication:Bronchitis due to tobacco use Start:25-Nov-2016 Instruction Type:Provider Instructions for Treatment How to access health informa tion online Indication:Cough Start:11-Nov-2016 Instruction Type:Patient Education How to access health informa tion online - Detail Indication:Cough Start:11-Nov-2016 Instruction Type:Patient Education Patient Instructions Indication:Cough Start:11-Nov-2016 Instruction Type:Provider Instructions for Treatment How to access health informa tion online Indication:Bronchitis Start:24-Sep-2016 Instruction Type:Patient Education How to access health informa tion online - Detail Indication:Bronchitis Start:24-Sep-2016 Instruction Type:Patient Education Patient Instructions Indication:Bronchitis Start:24-Sep-2016 Instruction Type:Provider Instructions for Treatment How to access health informa tion online Indication:Chest congestion Start:17-Sep-2016 Instruction Type:Patient Education How to access health informa tion online - Detail Indication:Chest congestion Start:17-Sep-2016 Instruction Type:Patient Education Patient Instructions Indication:Chest congestion Start:17-Sep-2016 Instruction Type:Provider Instructions for Treatment How to access health informa tion online Indication:Current non-smoker Start:29-Jul-2016 Instruction Type:Patient Education How to access health informa tion online - Detail Indication:Current non-smoker Start:29-Jul-2016 Instruction Type:Patient Education Patient Instructions Indication:Current non-smoker Start:29-Jul-2016 Instruction Type:Provider Instructions for Treatment Patient Instructions Indication:Cellulitis Start:09-Aug-2015 Instruction Type:Provider Instructions for Treatment Patient Instructions Indication:Pharyngitis, acute Start:31-Jan-2013 Instruction Type:Provider Instructions for Treatment Patient Instructions Indication:Asthma, intrinsic, with status asthmaticus Start:28-Jun-2012 Instruction Type:Provider Instructions for Treatment Patient Instructions Indication:Hyperlipidemia Start:17-May-2012 Instruction Type:Provider Instructions for Treatment [facility] Work Phone: Instructions* Name Dates Details Patient Instructions Indication:BMI 36.0-36.9,adult Start:18-Jul-2021 Instruction Type:Provider Instructions for Treatment How to Access Health Informa tion Online using Patient Portal and [employer] Apps Indication:BMI 36.0-36.9,adult Start:18-Jul-2021 Instruction Type:Patient Education Patient Instructions Indication:Non-smoker Start:09-May-2021 Instruction Type:Provider Instructions for Treatment How to Access Health Informa tion Online using Patient Portal and [employer] Apps Indication:Non-smoker Start:09-May-2021 Instruction Type:Patient Education How to Access Health Informa tion Online using Patient Portal and [employer] Apps Indication:Non-smoker Start:17-Mar-2021 Instruction Type:Patient Education Patient Instructions Indication:Non-smoker Start:17-Mar-2021 Instruction Type:Provider Instructions for Treatment obesity counseling Indication:Obstructive sleep apnea, adult Start:01-Oct-2020 Instruction Type:Provider Instructions for Treatment cardiovascular counseling Indication:Atrial fibrillation Start:01-Oct-2020 Instruction Type:Provider Instructions for Treatment How to Access Health Informa tion Online using Patient Portal and [employer] Apps Indication:Non-smoker Start:01-Oct-2020 Instruction Type:Patient Education Patient Instructions Indication:Non-smoker Start:01-Oct-2020 Instruction Type:Provider Instructions for Treatment Patient Instructions Indication:Non-smoker Start:16-Sep-2020 Instruction Type:Provider Instructions for Treatment How to Access Health Informa tion Online using Patient Portal and [employer] Apps Indication:Non-smoker Start:16-Sep-2020 Instruction Type:Patient Education How to access health informa tion online Indication:Non-smoker Start:16-May-2020 Instruction Type:Patient Education How to access health informa tion online - Detail Indication:Non-smoker Start:16-May-2020 Instruction Type:Patient Education Patient Instructions Indication:Non-smoker Start:16-May-2020 Instruction Type:Provider Instructions for Treatment How to access health informa tion online Indication:Non-smoker Start:10-May-2020 Instruction Type:Patient Education How to access health informa tion online - Detail Indication:Non-smoker Start:10-May-2020 Instruction Type:Patient Education Patient Instructions Indication:Non-smoker Start:10-May-2020 Instruction Type:Provider Instructions for Treatment How to access health informa tion online Indication:BMI 35.0-35.9,adult Start:04-Jan-2020 Instruction Type:Patient Education How to access health informa tion online - Detail Indication:BMI 35.0-35.9,adult Start:04-Jan-2020 Instruction Type:Patient Education Patient Instructions Indication:BMI 35.0-35.9,adult Start:04-Jan-2020 Instruction Type:Provider Instructions for Treatment How to access health informa tion online Indication:Current non-smoker Start:27-Feb-2019 Instruction Type:Patient Education How to access health informa tion online - Detail Indication:Current non-smoker Start:27-Feb-2019 Instruction Type:Patient Education Patient Instructions Indication:Eye swelling, right Start:27-Feb-2019 Instruction Type:Provider Instructions for Treatment How to access health informa tion online Indication:Current non-smoker Start:01-Sep-2018 Instruction Type:Patient Education How to access health informa tion online - Detail Indication:Current non-smoker Start:01-Sep-2018 Instruction Type:Patient Education Patient Instructions Indication:Current non-smoker Start:01-Sep-2018 Instruction Type:Provider Instructions for Treatment How to access health informa tion online - Detail Indication:BMI 34.0-34.9,adult Start:16-Aug-2018 Instruction Type:Patient Education How to access health informa tion online Indication:BMI 34.0-34.9,adult Start:16-Aug-2018 Instruction Type:Patient Education Patient Instructions Indication:BMI 34.0-34.9,adult Start:16-Aug-2018 Instruction Type:Provider Instructions for Treatment How to access health informa tion online Indication:Bronchitis due to tobacco use Start:25-Nov-2016 Instruction Type:Patient Education How to access health informa tion online - Detail Indication:Bronchitis due to tobacco use Start:25-Nov-2016 Instruction Type:Patient Education Patient Instructions Indication:Bronchitis due to tobacco use Start:25-Nov-2016 Instruction Type:Provider Instructions for Treatment How to access health informa tion online Indication:Cough Start:11-Nov-2016 Instruction Type:Patient Education How to access health informa tion online - Detail Indication:Cough Start:11-Nov-2016 Instruction Type:Patient Education Patient Instructions Indication:Cough Start:11-Nov-2016 Instruction Type:Provider Instructions for Treatment How to access health informa tion online Indication:Bronchitis Start:24-Sep-2016 Instruction Type:Patient Education How to access health informa tion online - Detail Indication:Bronchitis Start:24-Sep-2016 Instruction Type:Patient Education Patient Instructions Indication:Bronchitis Start:24-Sep-2016 Instruction Type:Provider Instructions for Treatment How to access health informa tion online Indication:Chest congestion Start:17-Sep-2016 Instruction Type:Patient Education How to access health informa tion online - Detail Indication:Chest congestion Start:17-Sep-2016 Instruction Type:Patient Education Patient Instructions Indication:Chest congestion Start:17-Sep-2016 Instruction Type:Provider Instructions for Treatment How to access health informa tion online Indication:Current non-smoker Start:29-Jul-2016 Instruction Type:Patient Education How to access health informa tion online - Detail Indication:Current non-smoker Start:29-Jul-2016 Instruction Type:Patient Education Patient Instructions Indication:Current non-smoker Start:29-Jul-2016 Instruction Type:Provider Instructions for Treatment Patient Instructions Indication:Cellulitis Start:09-Aug-2015 Instruction Type:Provider Instructions for Treatment Patient Instructions Indication:Pharyngitis, acute Start:31-Jan-2013 Instruction Type:Provider Instructions for Treatment Patient Instructions Indication:Asthma, intrinsic, with status asthmaticus Start:28-Jun-2012 Instruction Type:Provider Instructions for Treatment Patient Instructions Indication:Hyperlipidemia Start:17-May-2012 Instruction Type:Provider Instructions for Treatment [facility] Work Phone: Instructions* Name Dates Details Patient Instructions Indication:Urinary frequency Start:08-Apr-2022 Instruction Type:Provider Instructions for Treatment How to Access Health Informa tion Online using Patient Portal and [employer] Apps Indication:Urinary frequency Start:08-Apr-2022 Instruction Type:Patient Education Patient Instructions Indication:Non-smoker Start:08-Oct-2021 Instruction Type:Provider Instructions for Treatment How to Access Health Informa tion Online using Patient Portal and [employer] Apps Indication:Non-smoker Start:08-Oct-2021 Instruction Type:Patient Education Patient Instructions Indication:BMI 36.0-36.9,adult Start:18-Jul-2021 Instruction Type:Provider Instructions for Treatment How to Access Health Informa tion Online using Patient Portal and [employer] Indication:BMI 36.0-36.9,adult Start:18-Jul-2021 Instruction Type:Patient Education Patient Instructions Indication:Non-smoker Start:09-May-2021 Instruction Type:Provider Instructions for Treatment How to Access Health Informa tion Online using Patient Portal and [employer] Indication:Non-smoker Start:09-May-2021 Instruction Type:Patient Education How to Access Health Informa tion Online using Patient Portal and [employer] Apps Indication:Non-smoker Start:17-Mar-2021 Instruction Type:Patient Education Patient Instructions Indication:Non-smoker Start:17-Mar-2021 Instruction Type:Provider Instructions for Treatment obesity counseling Indication:Obstructive sleep apnea, adult Start:01-Oct-2020 Instruction Type:Provider Instructions for Treatment cardiovascular counseling Indication:Atrial fibrillation Start:01-Oct-2020 Instruction Type:Provider Instructions for Treatment How to Access Health Informa tion Online using Patient Portal and [employer] Apps Indication:Non-smoker Start:01-Oct-2020 Instruction Type:Patient Education Patient Instructions Indication:Non-smoker Start:01-Oct-2020 Instruction Type:Provider Instructions for Treatment Patient Instructions Indication:Non-smoker Start:16-Sep-2020 Instruction Type:Provider Instructions for Treatment How to Access Health Informa tion Online using Patient Portal and [employer] Apps Indication:Non-smoker Start:16-Sep-2020 Instruction Type:Patient Education How to access health informa tion online Indication:Non-smoker Start:16-May-2020 Instruction Type:Patient Education How to access health informa tion online - Detail Indication:Non-smoker Start:16-May-2020 Instruction Type:Patient Education Patient Instructions Indication:Non-smoker Start:16-May-2020 Instruction Type:Provider Instructions for Treatment How to access health informa tion online Indication:Non-smoker Start:10-May-2020 Instruction Type:Patient Education How to access health informa tion online - Detail Indication:Non-smoker Start:10-May-2020 Instruction Type:Patient Education Patient Instructions Indication:Non-smoker Start:10-May-2020 Instruction Type:Provider Instructions for Treatment How to access health informa tion online Indication:BMI 35.0-35.9,adult Start:04-Jan-2020 Instruction Type:Patient Education How to access health informa tion online - Detail Indication:BMI 35.0-35.9,adult Start:04-Jan-2020 Instruction Type:Patient Education Patient Instructions Indication:BMI 35.0-35.9,adult Start:04-Jan-2020 Instruction Type:Provider Instructions for Treatment How to access health informa tion online Indication:Current non-smoker Start:27-Feb-2019 Instruction Type:Patient Education How to access health informa tion online - Detail Indication:Current non-smoker Start:27-Feb-2019 Instruction Type:Patient Education Patient Instructions Indication:Eye swelling, right Start:27-Feb-2019 Instruction Type:Provider Instructions for Treatment How to access health informa tion online Indication:Current non-smoker Start:01-Sep-2018 Instruction Type:Patient Education How to access health informa tion online - Detail Indication:Current non-smoker Start:01-Sep-2018 Instruction Type:Patient Education Patient Instructions Indication:Current non-smoker Start:01-Sep-2018 Instruction Type:Provider Instructions for Treatment How to access health informa tion online - Detail Indication:BMI 34.0-34.9,adult Start:16-Aug-2018 Instruction Type:Patient Education How to access health informa tion online Indication:BMI 34.0-34.9,adult Start:16-Aug-2018 Instruction Type:Patient Education Patient Instructions Indication:BMI 34.0-34.9,adult Start:16-Aug-2018 Instruction Type:Provider Instructions for Treatment How to access health informa tion online Indication:Bronchitis due to tobacco use Start:25-Nov-2016 Instruction Type:Patient Education How to access health informa tion online - Detail Indication:Bronchitis due to tobacco use Start:25-Nov-2016 Instruction Type:Patient Education Patient Instructions Indication:Bronchitis due to tobacco use Start:25-Nov-2016 Instruction Type:Provider Instructions for Treatment How to access health informa tion online Indication:Cough Start:11-Nov-2016 Instruction Type:Patient Education How to access health informa tion online - Detail Indication:Cough Start:11-Nov-2016 Instruction Type:Patient Education Patient Instructions Indication:Cough Start:11-Nov-2016 Instruction Type:Provider Instructions for Treatment How to access health informa tion online Indication:Bronchitis Start:24-Sep-2016 Instruction Type:Patient Education How to access health informa tion online - Detail Indication:Bronchitis Start:24-Sep-2016 Instruction Type:Patient Education Patient Instructions Indication:Bronchitis Start:24-Sep-2016 Instruction Type:Provider Instructions for Treatment How to access health informa tion online Indication:Chest congestion Start:17-Sep-2016 Instruction Type:Patient Education How to access health informa tion online - Detail Indication:Chest congestion Start:17-Sep-2016 Instruction Type:Patient Education Patient Instructions Indication:Chest congestion Start:17-Sep-2016 Instruction Type:Provider Instructions for Treatment How to access health informa tion online Indication:Current non-smoker Start:29-Jul-2016 Instruction Type:Patient Education How to access health informa tion online - Detail Indication:Current non-smoker Start:29-Jul-2016 Instruction Type:Patient Education Patient Instructions Indication:Current non-smoker Start:29-Jul-2016 Instruction Type:Provider Instructions for Treatment Patient Instructions Indication:Cellulitis Start:09-Aug-2015 Instruction Type:Provider Instructions for Treatment Patient Instructions Indication:Pharyngitis, acute Start:31-Jan-2013 Instruction Type:Provider Instructions for Treatment Patient Instructions Indication:Asthma, intrinsic, with status asthmaticus Start:28-Jun-2012 Instruction Type:Provider Instructions for Treatment Patient Instructions Indication:Hyperlipidemia Start:17-May-2012 Instruction Type:Provider Instructions for Treatment [facility]; [facility] Work Phone: Instructions* Name Dates Details Patient Instructions Indication:Urinary frequency Start:08-Apr-2022 Instruction Type:Provider Instructions for Treatment How to Access Health Informa tion Online using Patient Portal and [employer] Apps Indication:Urinary frequency Start:08-Apr-2022 Instruction Type:Patient Education Patient Instructions Indication:Non-smoker Start:08-Oct-2021 Instruction Type:Provider Instructions for Treatment How to Access Health Informa tion Online using Patient Portal and [employer] Apps Indication:Non-smoker Start:08-Oct-2021 Instruction Type:Patient Education Patient Instructions Indication:BMI 36.0-36.9,adult Start:18-Jul-2021 Instruction Type:Provider Instructions for Treatment How to Access Health Informa tion Online using Patient Portal and [employer] Apps Indication:BMI 36.0-36.9,adult Start:18-Jul-2021 Instruction Type:Patient Education Patient Instructions Indication:Non-smoker Start:09-May-2021 Instruction Type:Provider Instructions for Treatment How to Access Health Informa tion Online using Patient Portal and [employer] Apps Indication:Non-smoker Start:09-May-2021 Instruction Type:Patient Education How to Access Health Informa tion Online using Patient Portal and [employer] Apps Indication:Non-smoker Start:17-Mar-2021 Instruction Type:Patient Education Patient Instructions Indication:Non-smoker Start:17-Mar-2021 Instruction Type:Provider Instructions for Treatment obesity counseling Indication:Obstructive sleep apnea, adult Start:01-Oct-2020 Instruction Type:Provider Instructions for Treatment cardiovascular counseling Indication:Atrial fibrillation Start:01-Oct-2020 Instruction Type:Provider Instructions for Treatment How to Access Health Informa tion Online using Patient Portal and [employer] Apps Indication:Non-smoker Start:01-Oct-2020 Instruction Type:Patient Education Patient Instructions Indication:Non-smoker Start:01-Oct-2020 Instruction Type:Provider Instructions for Treatment Patient Instructions Indication:Non-smoker Start:16-Sep-2020 Instruction Type:Provider Instructions for Treatment How to Access Health Informa tion Online using Patient Portal and [employer] Apps Indication:Non-smoker Start:16-Sep-2020 Instruction Type:Patient Education How to access health informa tion online Indication:Non-smoker Start:16-May-2020 Instruction Type:Patient Education How to access health informa tion online - Detail Indication:Non-smoker Start:16-May-2020 Instruction Type:Patient Education Patient Instructions Indication:Non-smoker Start:16-May-2020 Instruction Type:Provider Instructions for Treatment How to access health informa tion online Indication:Non-smoker Start:10-May-2020 Instruction Type:Patient Education How to access health informa tion online - Detail Indication:Non-smoker Start:10-May-2020 Instruction Type:Patient Education Patient Instructions Indication:Non-smoker Start:10-May-2020 Instruction Type:Provider Instructions for Treatment How to access health informa tion online Indication:BMI 35.0-35.9,adult Start:04-Jan-2020 Instruction Type:Patient Education How to access health informa tion online - Detail Indication:BMI 35.0-35.9,adult Start:04-Jan-2020 Instruction Type:Patient Education Patient Instructions Indication:BMI 35.0-35.9,adult Start:04-Jan-2020 Instruction Type:Provider Instructions for Treatment How to access health informa tion online Indication:Current non-smoker Start:27-Feb-2019 Instruction Type:Patient Education How to access health informa tion online - Detail Indication:Current non-smoker Start:27-Feb-2019 Instruction Type:Patient Education Patient Instructions Indication:Eye swelling, right Start:27-Feb-2019 Instruction Type:Provider Instructions for Treatment How to access health informa tion online Indication:Current non-smoker Start:01-Sep-2018 Instruction Type:Patient Education How to access health informa tion online - Detail Indication:Current non-smoker Start:01-Sep-2018 Instruction Type:Patient Education Patient Instructions Indication:Current non-smoker Start:01-Sep-2018 Instruction Type:Provider Instructions for Treatment How to access health informa tion online - Detail Indication:BMI 34.0-34.9,adult Start:16-Aug-2018 Instruction Type:Patient Education How to access health informa tion online Indication:BMI 34.0-34.9,adult Start:16-Aug-2018 Instruction Type:Patient Education Patient Instructions Indication:BMI 34.0-34.9,adult Start:16-Aug-2018 Instruction Type:Provider Instructions for Treatment How to access health informa tion online Indication:Bronchitis due to tobacco use Start:25-Nov-2016 Instruction Type:Patient Education How to access health informa tion online - Detail Indication:Bronchitis due to tobacco use Start:25-Nov-2016 Instruction Type:Patient Education Patient Instructions Indication:Bronchitis due to tobacco use Start:25-Nov-2016 Instruction Type:Provider Instructions for Treatment How to access health informa tion online Indication:Cough Start:11-Nov-2016 Instruction Type:Patient Education How to access health informa tion online - Detail Indication:Cough Start:11-Nov-2016 Instruction Type:Patient Education Patient Instructions Indication:Cough Start:11-Nov-2016 Instruction Type:Provider Instructions for Treatment How to access health informa tion online Indication:Bronchitis Start:24-Sep-2016 Instruction Type:Patient Education How to access health informa tion online - Detail Indication:Bronchitis Start:24-Sep-2016 Instruction Type:Patient Education Patient Instructions Indication:Bronchitis Start:24-Sep-2016 Instruction Type:Provider Instructions for Treatment How to access health informa tion online Indication:Chest congestion Start:17-Sep-2016 Instruction Type:Patient Education How to access health informa tion online - Detail Indication:Chest congestion Start:17-Sep-2016 Instruction Type:Patient Education Patient Instructions Indication:Chest congestion Start:17-Sep-2016 Instruction Type:Provider Instructions for Treatment How to access health informa tion online Indication:Current non-smoker Start:29-Jul-2016 Instruction Type:Patient Education How to access health informa tion online - Detail Indication:Current non-smoker Start:29-Jul-2016 Instruction Type:Patient Education Patient Instructions Indication:Current non-smoker Start:29-Jul-2016 Instruction Type:Provider Instructions for Treatment Patient Instructions Indication:Cellulitis Start:09-Aug-2015 Instruction Type:Provider Instructions for Treatment Patient Instructions Indication:Pharyngitis, acute Start:31-Jan-2013 Instruction Type:Provider Instructions for Treatment Patient Instructions Indication:Asthma, intrinsic, with status asthmaticus Start:28-Jun-2012 Instruction Type:Provider Instructions for Treatment Patient Instructions Indication:Hyperlipidemia Start:17-May-2012 Instruction Type:Provider Instructions for Treatment [facility]; [facility] Work Phone: Instructions* Name Dates Details Patient Instructions Indication:Urinary frequency Start:08-Apr-2022 Instruction Type:Provider Instructions for Treatment How to Access Health Informa tion Online using Patient Portal and [employer] Apps Indication:Urinary frequency Start:08-Apr-2022 Instruction Type:Patient Education Patient Instructions Indication:Non-smoker Start:08-Oct-2021 Instruction Type:Provider Instructions for Treatment How to Access Health Informa tion Online using Patient Portal and [employer] Apps Indication:Non-smoker Start:08-Oct-2021 Instruction Type:Patient Education Patient Instructions Indication:BMI 36.0-36.9,adult Start:18-Jul-2021 Instruction Type:Provider Instructions for Treatment How to Access Health Informa tion Online using Patient Portal and [employer] Apps Indication:BMI 36.0-36.9,adult Start:18-Jul-2021 Instruction Type:Patient Education Patient Instructions Indication:Non-smoker Start:09-May-2021 Instruction Type:Provider Instructions for Treatment How to Access Health Informa tion Online using Patient Portal and [employer] Apps Indication:Non-smoker Start:09-May-2021 Instruction Type:Patient Education How to Access Health Informa tion Online using Patient Portal and [employer] Apps Indication:Non-smoker Start:17-Mar-2021 Instruction Type:Patient Education Patient Instructions Indication:Non-smoker Start:17-Mar-2021 Instruction Type:Provider Instructions for Treatment obesity counseling Indication:Obstructive sleep apnea, adult Start:01-Oct-2020 Instruction Type:Provider Instructions for Treatment cardiovascular counseling Indication:Atrial fibrillation Start:01-Oct-2020 Instruction Type:Provider Instructions for Treatment How to Access Health Informa tion Online using Patient Portal and [employer] Apps Indication:Non-smoker Start:01-Oct-2020 Instruction Type:Patient Education Patient Instructions Indication:Non-smoker Start:01-Oct-2020 Instruction Type:Provider Instructions for Treatment Patient Instructions Indication:Non-smoker Start:16-Sep-2020 Instruction Type:Provider Instructions for Treatment How to Access Health Informa tion Online using Patient Portal and [employer] Apps Indication:Non-smoker Start:16-Sep-2020 Instruction Type:Patient Education How to access health informa tion online Indication:Non-smoker Start:16-May-2020 Instruction Type:Patient Education How to access health informa tion online - Detail Indication:Non-smoker Start:16-May-2020 Instruction Type:Patient Education Patient Instructions Indication:Non-smoker Start:16-May-2020 Instruction Type:Provider Instructions for Treatment How to access health informa tion online Indication:Non-smoker Start:10-May-2020 Instruction Type:Patient Education How to access health informa tion online - Detail Indication:Non-smoker Start:10-May-2020 Instruction Type:Patient Education Patient Instructions Indication:Non-smoker Start:10-May-2020 Instruction Type:Provider Instructions for Treatment How to access health informa tion online Indication:BMI 35.0-35.9,adult Start:04-Jan-2020 Instruction Type:Patient Education How to access health informa tion online - Detail Indication:BMI 35.0-35.9,adult Start:04-Jan-2020 Instruction Type:Patient Education Patient Instructions Indication:BMI 35.0-35.9,adult Start:04-Jan-2020 Instruction Type:Provider Instructions for Treatment How to access health informa tion online Indication:Current non-smoker Start:27-Feb-2019 Instruction Type:Patient Education How to access health informa tion online - Detail Indication:Current non-smoker Start:27-Feb-2019 Instruction Type:Patient Education Patient Instructions Indication:Eye swelling, right Start:27-Feb-2019 Instruction Type:Provider Instructions for Treatment How to access health informa tion online Indication:Current non-smoker Start:01-Sep-2018 Instruction Type:Patient Education How to access health informa tion online - Detail Indication:Current non-smoker Start:01-Sep-2018 Instruction Type:Patient Education Patient Instructions Indication:Current non-smoker Start:01-Sep-2018 Instruction Type:Provider Instructions for Treatment How to access health informa tion online - Detail Indication:BMI 34.0-34.9,adult Start:16-Aug-2018 Instruction Type:Patient Education How to access health informa tion online Indication:BMI 34.0-34.9,adult Start:16-Aug-2018 Instruction Type:Patient Education Patient Instructions Indication:BMI 34.0-34.9,adult Start:16-Aug-2018 Instruction Type:Provider Instructions for Treatment How to access health informa tion online Indication:Bronchitis due to tobacco use Start:25-Nov-2016 Instruction Type:Patient Education How to access health informa tion online - Detail Indication:Bronchitis due to tobacco use Start:25-Nov-2016 Instruction Type:Patient Education Patient Instructions Indication:Bronchitis due to tobacco use Start:25-Nov-2016 Instruction Type:Provider Instructions for Treatment How to access health informa tion online Indication:Cough Start:11-Nov-2016 Instruction Type:Patient Education How to access health informa tion online - Detail Indication:Cough Start:11-Nov-2016 Instruction Type:Patient Education Patient Instructions Indication:Cough Start:11-Nov-2016 Instruction Type:Provider Instructions for Treatment How to access health informa tion online Indication:Bronchitis Start:24-Sep-2016 Instruction Type:Patient Education How to access health informa tion online - Detail Indication:Bronchitis Start:24-Sep-2016 Instruction Type:Patient Education Patient Instructions Indication:Bronchitis Start:24-Sep-2016 Instruction Type:Provider Instructions for Treatment How to access health informa tion online Indication:Chest congestion Start:17-Sep-2016 Instruction Type:Patient Education How to access health informa tion online - Detail Indication:Chest congestion Start:17-Sep-2016 Instruction Type:Patient Education Patient Instructions Indication:Chest congestion Start:17-Sep-2016 Instruction Type:Provider Instructions for Treatment How to access health informa tion online Indication:Current non-smoker Start:29-Jul-2016 Instruction Type:Patient Education How to access health informa tion online - Detail Indication:Current non-smoker Start:29-Jul-2016 Instruction Type:Patient Education Patient Instructions Indication:Current non-smoker Start:29-Jul-2016 Instruction Type:Provider Instructions for Treatment Patient Instructions Indication:Cellulitis Start:09-Aug-2015 Instruction Type:Provider Instructions for Treatment Patient Instructions Indication:Pharyngitis, acute Start:31-Jan-2013 Instruction Type:Provider Instructions for Treatment Patient Instructions Indication:Asthma, intrinsic, with status asthmaticus Start:28-Jun-2012 Instruction Type:Provider Instructions for Treatment Patient Instructions Indication:Hyperlipidemia Start:17-May-2012 Instruction Type:Provider Instructions for Treatment [facility]; [facility] Work Phone: Instructions* Name Dates Details Patient Instructions Indication:Non-smoker Start:20-Apr-2022 Instruction Type:Provider Instructions for Treatment How to Access Health Informa tion Online using Patient Portal and [employer] Apps Indication:Non-smoker Start:20-Apr-2022 Instruction Type:Patient Education Patient Instructions Indication:Urinary frequency Start:08-Apr-2022 Instruction Type:Provider Instructions for Treatment How to Access Health Informa tion Online using Patient Portal and [employer] Apps Indication:Urinary frequency Start:08-Apr-2022 Instruction Type:Patient Education Patient Instructions Indication:Non-smoker Start:08-Oct-2021 Instruction Type:Provider Instructions for Treatment How to Access Health Informa tion Online using Patient Portal and [employer] Apps Indication:Non-smoker Start:08-Oct-2021 Instruction Type:Patient Education Patient Instructions Indication:BMI 36.0-36.9,adult Start:18-Jul-2021 Instruction Type:Provider Instructions for Treatment How to Access Health Informa tion Online using Patient Portal and [employer] Apps Indication:BMI 36.0-36.9,adult Start:18-Jul-2021 Instruction Type:Patient Education Patient Instructions Indication:Non-smoker Start:09-May-2021 Instruction Type:Provider Instructions for Treatment How to Access Health Informa tion Online using Patient Portal and [employer] Apps Indication:Non-smoker Start:09-May-2021 Instruction Type:Patient Education How to Access Health Informa tion Online using Patient Portal and [employer] Apps Indication:Non-smoker Start:17-Mar-2021 Instruction Type:Patient Education Patient Instructions Indication:Non-smoker Start:17-Mar-2021 Instruction Type:Provider Instructions for Treatment obesity counseling Indication:Obstructive sleep apnea, adult Start:01-Oct-2020 Instruction Type:Provider Instructions for Treatment cardiovascular counseling Indication:Atrial fibrillation Start:01-Oct-2020 Instruction Type:Provider Instructions for Treatment How to Access Health Informa tion Online using Patient Portal and [employer] Apps Indication:Non-smoker Start:01-Oct-2020 Instruction Type:Patient Education Patient Instructions Indication:Non-smoker Start:01-Oct-2020 Instruction Type:Provider Instructions for Treatment Patient Instructions Indication:Non-smoker Start:16-Sep-2020 Instruction Type:Provider Instructions for Treatment How to Access Health Informa tion Online using Patient Portal and [employer] Apps Indication:Non-smoker Start:16-Sep-2020 Instruction Type:Patient Education How to access health informa tion online Indication:Non-smoker Start:16-May-2020 Instruction Type:Patient Education How to access health informa tion online - Detail Indication:Non-smoker Start:16-May-2020 Instruction Type:Patient Education Patient Instructions Indication:Non-smoker Start:16-May-2020 Instruction Type:Provider Instructions for Treatment How to access health informa tion online Indication:Non-smoker Start:10-May-2020 Instruction Type:Patient Education How to access health informa tion online - Detail Indication:Non-smoker Start:10-May-2020 Instruction Type:Patient Education Patient Instructions Indication:Non-smoker Start:10-May-2020 Instruction Type:Provider Instructions for Treatment How to access health informa tion online Indication:BMI 35.0-35.9,adult Start:04-Jan-2020 Instruction Type:Patient Education How to access health informa tion online - Detail Indication:BMI 35.0-35.9,adult Start:04-Jan-2020 Instruction Type:Patient Education Patient Instructions Indication:BMI 35.0-35.9,adult Start:04-Jan-2020 Instruction Type:Provider Instructions for Treatment How to access health informa tion online Indication:Current non-smoker Start:27-Feb-2019 Instruction Type:Patient Education How to access health informa tion online - Detail Indication:Current non-smoker Start:27-Feb-2019 Instruction Type:Patient Education Patient Instructions Indication:Eye swelling, right Start:27-Feb-2019 Instruction Type:Provider Instructions for Treatment How to access health informa tion online Indication:Current non-smoker Start:01-Sep-2018 Instruction Type:Patient Education How to access health informa tion online - Detail Indication:Current non-smoker Start:01-Sep-2018 Instruction Type:Patient Education Patient Instructions Indication:Current non-smoker Start:01-Sep-2018 Instruction Type:Provider Instructions for Treatment How to access health informa tion online - Detail Indication:BMI 34.0-34.9,adult Start:16-Aug-2018 Instruction Type:Patient Education How to access health informa tion online Indication:BMI 34.0-34.9,adult Start:16-Aug-2018 Instruction Type:Patient Education Patient Instructions Indication:BMI 34.0-34.9,adult Start:16-Aug-2018 Instruction Type:Provider Instructions for Treatment How to access health informa tion online Indication:Bronchitis due to tobacco use Start:25-Nov-2016 Instruction Type:Patient Education How to access health informa tion online - Detail Indication:Bronchitis due to tobacco use Start:25-Nov-2016 Instruction Type:Patient Education Patient Instructions Indication:Bronchitis due to tobacco use Start:25-Nov-2016 Instruction Type:Provider Instructions for Treatment How to access health informa tion online Indication:Cough Start:11-Nov-2016 Instruction Type:Patient Education How to access health informa tion online - Detail Indication:Cough Start:11-Nov-2016 Instruction Type:Patient Education Patient Instructions Indication:Cough Start:11-Nov-2016 Instruction Type:Provider Instructions for Treatment How to access health informa tion online Indication:Bronchitis Start:24-Sep-2016 Instruction Type:Patient Education How to access health informa tion online - Detail Indication:Bronchitis Start:24-Sep-2016 Instruction Type:Patient Education Patient Instructions Indication:Bronchitis Start:24-Sep-2016 Instruction Type:Provider Instructions for Treatment How to access health informa tion online Indication:Chest congestion Start:17-Sep-2016 Instruction Type:Patient Education How to access health informa tion online - Detail Indication:Chest congestion Start:17-Sep-2016 Instruction Type:Patient Education Patient Instructions Indication:Chest congestion Start:17-Sep-2016 Instruction Type:Provider Instructions for Treatment How to access health informa tion online Indication:Current non-smoker Start:29-Jul-2016 Instruction Type:Patient Education How to access health informa tion online - Detail Indication:Current non-smoker Start:29-Jul-2016 Instruction Type:Patient Education Patient Instructions Indication:Current non-smoker Start:29-Jul-2016 Instruction Type:Provider Instructions for Treatment Patient Instructions Indication:Cellulitis Start:09-Aug-2015 Instruction Type:Provider Instructions for Treatment Patient Instructions Indication:Pharyngitis, acute Start:31-Jan-2013 Instruction Type:Provider Instructions for Treatment Patient Instructions Indication:Asthma, intrinsic, with status asthmaticus Start:28-Jun-2012 Instruction Type:Provider Instructions for Treatment Patient Instructions Indication:Hyperlipidemia Start:17-May-2012 Instruction Type:Provider Instructions for Treatment [facility]; [facility] Work Phone: Instructions* Name Dates Details Patient Instructions Indication:Non-smoker Start:20-Apr-2022 Instruction Type:Provider Instructions for Treatment How to Access Health Informa tion Online using Patient Portal and [employer] Apps Indication:Non-smoker Start:20-Apr-2022 Instruction Type:Patient Education Patient Instructions Indication:Urinary frequency Start:08-Apr-2022 Instruction Type:Provider Instructions for Treatment How to Access Health Informa tion Online using Patient Portal and [employer] Apps Indication:Urinary frequency Start:08-Apr-2022 Instruction Type:Patient Education Patient Instructions Indication:Non-smoker Start:08-Oct-2021 Instruction Type:Provider Instructions for Treatment How to Access Health Informa tion Online using Patient Portal and [employer] Apps Indication:Non-smoker Start:08-Oct-2021 Instruction Type:Patient Education Patient Instructions Indication:BMI 36.0-36.9,adult Start:18-Jul-2021 Instruction Type:Provider Instructions for Treatment How to Access Health Informa tion Online using Patient Portal and [employer] Apps Indication:BMI 36.0-36.9,adult Start:18-Jul-2021 Instruction Type:Patient Education Patient Instructions Indication:Non-smoker Start:09-May-2021 Instruction Type:Provider Instructions for Treatment How to Access Health Informa tion Online using Patient Portal and [employer] Apps Indication:Non-smoker Start:09-May-2021 Instruction Type:Patient Education How to Access Health Informa tion Online using Patient Portal and [employer] Apps Indication:Non-smoker Start:17-Mar-2021 Instruction Type:Patient Education Patient Instructions Indication:Non-smoker Start:17-Mar-2021 Instruction Type:Provider Instructions for Treatment obesity counseling Indication:Obstructive sleep apnea, adult Start:01-Oct-2020 Instruction Type:Provider Instructions for Treatment cardiovascular counseling Indication:Atrial fibrillation Start:01-Oct-2020 Instruction Type:Provider Instructions for Treatment How to Access Health Informa tion Online using Patient Portal and [employer] Apps Indication:Non-smoker Start:01-Oct-2020 Instruction Type:Patient Education Patient Instructions Indication:Non-smoker Start:01-Oct-2020 Instruction Type:Provider Instructions for Treatment Patient Instructions Indication:Non-smoker Start:16-Sep-2020 Instruction Type:Provider Instructions for Treatment How to Access Health Informa tion Online using Patient Portal and [employer] Apps Indication:Non-smoker Start:16-Sep-2020 Instruction Type:Patient Education How to access health informa tion online Indication:Non-smoker Start:16-May-2020 Instruction Type:Patient Education How to access health informa tion online - Detail Indication:Non-smoker Start:16-May-2020 Instruction Type:Patient Education Patient Instructions Indication:Non-smoker Start:16-May-2020 Instruction Type:Provider Instructions for Treatment How to access health informa tion online Indication:Non-smoker Start:10-May-2020 Instruction Type:Patient Education How to access health informa tion online - Detail Indication:Non-smoker Start:10-May-2020 Instruction Type:Patient Education Patient Instructions Indication:Non-smoker Start:10-May-2020 Instruction Type:Provider Instructions for Treatment How to access health informa tion online Indication:BMI 35.0-35.9,adult Start:04-Jan-2020 Instruction Type:Patient Education How to access health informa tion online - Detail Indication:BMI 35.0-35.9,adult Start:04-Jan-2020 Instruction Type:Patient Education Patient Instructions Indication:BMI 35.0-35.9,adult Start:04-Jan-2020 Instruction Type:Provider Instructions for Treatment How to access health informa tion online Indication:Current non-smoker Start:27-Feb-2019 Instruction Type:Patient Education How to access health informa tion online - Detail Indication:Current non-smoker Start:27-Feb-2019 Instruction Type:Patient Education Patient Instructions Indication:Eye swelling, right Start:27-Feb-2019 Instruction Type:Provider Instructions for Treatment How to access health informa tion online Indication:Current non-smoker Start:01-Sep-2018 Instruction Type:Patient Education How to access health informa tion online - Detail Indication:Current non-smoker Start:01-Sep-2018 Instruction Type:Patient Education Patient Instructions Indication:Current non-smoker Start:01-Sep-2018 Instruction Type:Provider Instructions for Treatment How to access health informa tion online - Detail Indication:BMI 34.0-34.9,adult Start:16-Aug-2018 Instruction Type:Patient Education How to access health informa tion online Indication:BMI 34.0-34.9,adult Start:16-Aug-2018 Instruction Type:Patient Education Patient Instructions Indication:BMI 34.0-34.9,adult Start:16-Aug-2018 Instruction Type:Provider Instructions for Treatment How to access health informa tion online Indication:Bronchitis due to tobacco use Start:25-Nov-2016 Instruction Type:Patient Education How to access health informa tion online - Detail Indication:Bronchitis due to tobacco use Start:25-Nov-2016 Instruction Type:Patient Education Patient Instructions Indication:Bronchitis due to tobacco use Start:25-Nov-2016 Instruction Type:Provider Instructions for Treatment How to access health informa tion online Indication:Cough Start:11-Nov-2016 Instruction Type:Patient Education How to access health informa tion online - Detail Indication:Cough Start:11-Nov-2016 Instruction Type:Patient Education Patient Instructions Indication:Cough Start:11-Nov-2016 Instruction Type:Provider Instructions for Treatment How to access health informa tion online Indication:Bronchitis Start:24-Sep-2016 Instruction Type:Patient Education How to access health informa tion online - Detail Indication:Bronchitis Start:24-Sep-2016 Instruction Type:Patient Education Patient Instructions Indication:Bronchitis Start:24-Sep-2016 Instruction Type:Provider Instructions for Treatment How to access health informa tion online Indication:Chest congestion Start:17-Sep-2016 Instruction Type:Patient Education How to access health informa tion online - Detail Indication:Chest congestion Start:17-Sep-2016 Instruction Type:Patient Education Patient Instructions Indication:Chest congestion Start:17-Sep-2016 Instruction Type:Provider Instructions for Treatment How to access health informa tion online Indication:Current non-smoker Start:29-Jul-2016 Instruction Type:Patient Education How to access health informa tion online - Detail Indication:Current non-smoker Start:29-Jul-2016 Instruction Type:Patient Education Patient Instructions Indication:Current non-smoker Start:29-Jul-2016 Instruction Type:Provider Instructions for Treatment Patient Instructions Indication:Cellulitis Start:09-Aug-2015 Instruction Type:Provider Instructions for Treatment Patient Instructions Indication:Pharyngitis, acute Start:31-Jan-2013 Instruction Type:Provider Instructions for Treatment Patient Instructions Indication:Asthma, intrinsic, with status asthmaticus Start:28-Jun-2012 Instruction Type:Provider Instructions for Treatment Patient Instructions Indication:Hyperlipidemia Start:17-May-2012 Instruction Type:Provider Instructions for Treatment [facility]; [facility] Work Phone: Instructions* Name Dates Details Patient Instructions Indication:Non-smoker Start:20-Apr-2022 Instruction Type:Provider Instructions for Treatment How to Access Health Informa tion Online using Patient Portal and [employer] Apps Indication:Non-smoker Start:20-Apr-2022 Instruction Type:Patient Education Patient Instructions Indication:Urinary frequency Start:08-Apr-2022 Instruction Type:Provider Instructions for Treatment How to Access Health Informa tion Online using Patient Portal and [employer] Apps Indication:Urinary frequency Start:08-Apr-2022 Instruction Type:Patient Education Patient Instructions Indication:Non-smoker Start:08-Oct-2021 Instruction Type:Provider Instructions for Treatment How to Access Health Informa tion Online using Patient Portal and [employer] Apps Indication:Non-smoker Start:08-Oct-2021 Instruction Type:Patient Education Patient Instructions Indication:BMI 36.0-36.9,adult Start:18-Jul-2021 Instruction Type:Provider Instructions for Treatment How to Access Health Informa tion Online using Patient Portal and [employer] Apps Indication:BMI 36.0-36.9,adult Start:18-Jul-2021 Instruction Type:Patient Education Patient Instructions Indication:Non-smoker Start:09-May-2021 Instruction Type:Provider Instructions for Treatment How to Access Health Informa tion Online using Patient Portal and [employer] Apps Indication:Non-smoker Start:09-May-2021 Instruction Type:Patient Education How to Access Health Informa tion Online using Patient Portal and [employer] Apps Indication:Non-smoker Start:17-Mar-2021 Instruction Type:Patient Education Patient Instructions Indication:Non-smoker Start:17-Mar-2021 Instruction Type:Provider Instructions for Treatment obesity counseling Indication:Obstructive sleep apnea, adult Start:01-Oct-2020 Instruction Type:Provider Instructions for Treatment cardiovascular counseling Indication:Atrial fibrillation Start:01-Oct-2020 Instruction Type:Provider Instructions for Treatment How to Access Health Informa tion Online using Patient Portal and [employer] Apps Indication:Non-smoker Start:01-Oct-2020 Instruction Type:Patient Education Patient Instructions Indication:Non-smoker Start:01-Oct-2020 Instruction Type:Provider Instructions for Treatment Patient Instructions Indication:Non-smoker Start:16-Sep-2020 Instruction Type:Provider Instructions for Treatment How to Access Health Informa tion Online using Patient Portal and [employer] Apps Indication:Non-smoker Start:16-Sep-2020 Instruction Type:Patient Education How to access health informa tion online Indication:Non-smoker Start:16-May-2020 Instruction Type:Patient Education How to access health informa tion online - Detail Indication:Non-smoker Start:16-May-2020 Instruction Type:Patient Education Patient Instructions Indication:Non-smoker Start:16-May-2020 Instruction Type:Provider Instructions for Treatment How to access health informa tion online Indication:Non-smoker Start:10-May-2020 Instruction Type:Patient Education How to access health informa tion online - Detail Indication:Non-smoker Start:10-May-2020 Instruction Type:Patient Education Patient Instructions Indication:Non-smoker Start:10-May-2020 Instruction Type:Provider Instructions for Treatment How to access health informa tion online Indication:BMI 35.0-35.9,adult Start:04-Jan-2020 Instruction Type:Patient Education How to access health informa tion online - Detail Indication:BMI 35.0-35.9,adult Start:04-Jan-2020 Instruction Type:Patient Education Patient Instructions Indication:BMI 35.0-35.9,adult Start:04-Jan-2020 Instruction Type:Provider Instructions for Treatment How to access health informa tion online Indication:Current non-smoker Start:27-Feb-2019 Instruction Type:Patient Education How to access health informa tion online - Detail Indication:Current non-smoker Start:27-Feb-2019 Instruction Type:Patient Education Patient Instructions Indication:Eye swelling, right Start:27-Feb-2019 Instruction Type:Provider Instructions for Treatment How to access health informa tion online Indication:Current non-smoker Start:01-Sep-2018 Instruction Type:Patient Education How to access health informa tion online - Detail Indication:Current non-smoker Start:01-Sep-2018 Instruction Type:Patient Education Patient Instructions Indication:Current non-smoker Start:01-Sep-2018 Instruction Type:Provider Instructions for Treatment How to access health informa tion online - Detail Indication:BMI 34.0-34.9,adult Start:16-Aug-2018 Instruction Type:Patient Education How to access health informa tion online Indication:BMI 34.0-34.9,adult Start:16-Aug-2018 Instruction Type:Patient Education Patient Instructions Indication:BMI 34.0-34.9,adult Start:16-Aug-2018 Instruction Type:Provider Instructions for Treatment How to access health informa tion online Indication:Bronchitis due to tobacco use Start:25-Nov-2016 Instruction Type:Patient Education How to access health informa tion online - Detail Indication:Bronchitis due to tobacco use Start:25-Nov-2016 Instruction Type:Patient Education Patient Instructions Indication:Bronchitis due to tobacco use Start:25-Nov-2016 Instruction Type:Provider Instructions for Treatment How to access health informa tion online Indication:Cough Start:11-Nov-2016 Instruction Type:Patient Education How to access health informa tion online - Detail Indication:Cough Start:11-Nov-2016 Instruction Type:Patient Education Patient Instructions Indication:Cough Start:11-Nov-2016 Instruction Type:Provider Instructions for Treatment How to access health informa tion online Indication:Bronchitis Start:24-Sep-2016 Instruction Type:Patient Education How to access health informa tion online - Detail Indication:Bronchitis Start:24-Sep-2016 Instruction Type:Patient Education Patient Instructions Indication:Bronchitis Start:24-Sep-2016 Instruction Type:Provider Instructions for Treatment How to access health informa tion online Indication:Chest congestion Start:17-Sep-2016 Instruction Type:Patient Education How to access health informa tion online - Detail Indication:Chest congestion Start:17-Sep-2016 Instruction Type:Patient Education Patient Instructions Indication:Chest congestion Start:17-Sep-2016 Instruction Type:Provider Instructions for Treatment How to access health informa tion online Indication:Current non-smoker Start:29-Jul-2016 Instruction Type:Patient Education How to access health informa tion online - Detail Indication:Current non-smoker Start:29-Jul-2016 Instruction Type:Patient Education Patient Instructions Indication:Current non-smoker Start:29-Jul-2016 Instruction Type:Provider Instructions for Treatment Patient Instructions Indication:Cellulitis Start:09-Aug-2015 Instruction Type:Provider Instructions for Treatment Patient Instructions Indication:Pharyngitis, acute Start:31-Jan-2013 Instruction Type:Provider Instructions for Treatment Patient Instructions Indication:Asthma, intrinsic, with status asthmaticus Start:28-Jun-2012 Instruction Type:Provider Instructions for Treatment Patient Instructions Indication:Hyperlipidemia Start:17-May-2012 Instruction Type:Provider Instructions for Treatment [facility]; [facility] Work Phone: Instructions* Name Dates Details Patient Instructions Indication:Non-smoker Start:26-Oct-2022 Instruction Type:Provider Instructions for Treatment How to Access Health Informa tion Online using Patient Portal and [employer] Apps Indication:Non-smoker Start:26-Oct-2022 Instruction Type:Patient Education Patient Instructions Indication:Non-smoker Start:20-Apr-2022 Instruction Type:Provider Instructions for Treatment How to Access Health Informa tion Online using Patient Portal and [employer] Apps Indication:Non-smoker Start:20-Apr-2022 Instruction Type:Patient Education Patient Instructions Indication:Urinary frequency Start:08-Apr-2022 Instruction Type:Provider Instructions for Treatment How to Access Health Informa tion Online using Patient Portal and [employer] Apps Indication:Urinary frequency Start:08-Apr-2022 Instruction Type:Patient Education Patient Instructions Indication:Non-smoker Start:08-Oct-2021 Instruction Type:Provider Instructions for Treatment How to Access Health Informa tion Online using Patient Portal and [employer] Apps Indication:Non-smoker Start:08-Oct-2021 Instruction Type:Patient Education Patient Instructions Indication:BMI 36.0-36.9,adult Start:18-Jul-2021 Instruction Type:Provider Instructions for Treatment How to Access Health Informa tion Online using Patient Portal and [employer] Apps Indication:BMI 36.0-36.9,adult Start:18-Jul-2021 Instruction Type:Patient Education Patient Instructions Indication:Non-smoker Start:09-May-2021 Instruction Type:Provider Instructions for Treatment How to Access Health Informa tion Online using Patient Portal and [employer] Apps Indication:Non-smoker Start:09-May-2021 Instruction Type:Patient Education How to Access Health Informa tion Online using Patient Portal and [employer] Apps Indication:Non-smoker Start:17-Mar-2021 Instruction Type:Patient Education Patient Instructions Indication:Non-smoker Start:17-Mar-2021 Instruction Type:Provider Instructions for Treatment obesity counseling Indication:Obstructive sleep apnea, adult Start:01-Oct-2020 Instruction Type:Provider Instructions for Treatment cardiovascular counseling Indication:Atrial fibrillation Start:01-Oct-2020 Instruction Type:Provider Instructions for Treatment How to Access Health Informa tion Online using Patient Portal and [employer] Apps Indication:Non-smoker Start:01-Oct-2020 Instruction Type:Patient Education Patient Instructions Indication:Non-smoker Start:01-Oct-2020 Instruction Type:Provider Instructions for Treatment Patient Instructions Indication:Non-smoker Start:16-Sep-2020 Instruction Type:Provider Instructions for Treatment How to Access Health Informa tion Online using Patient Portal and [employer] Apps Indication:Non-smoker Start:16-Sep-2020 Instruction Type:Patient Education How to access health informa tion online Indication:Non-smoker Start:16-May-2020 Instruction Type:Patient Education How to access health informa tion online - Detail Indication:Non-smoker Start:16-May-2020 Instruction Type:Patient Education Patient Instructions Indication:Non-smoker Start:16-May-2020 Instruction Type:Provider Instructions for Treatment How to access health informa tion online Indication:Non-smoker Start:10-May-2020 Instruction Type:Patient Education How to access health informa tion online - Detail Indication:Non-smoker Start:10-May-2020 Instruction Type:Patient Education Patient Instructions Indication:Non-smoker Start:10-May-2020 Instruction Type:Provider Instructions for Treatment How to access health informa tion online Indication:BMI 35.0-35.9,adult Start:04-Jan-2020 Instruction Type:Patient Education How to access health informa tion online - Detail Indication:BMI 35.0-35.9,adult Start:04-Jan-2020 Instruction Type:Patient Education Patient Instructions Indication:BMI 35.0-35.9,adult Start:04-Jan-2020 Instruction Type:Provider Instructions for Treatment How to access health informa tion online Indication:Current non-smoker Start:27-Feb-2019 Instruction Type:Patient Education How to access health informa tion online - Detail Indication:Current non-smoker Start:27-Feb-2019 Instruction Type:Patient Education Patient Instructions Indication:Eye swelling, right Start:27-Feb-2019 Instruction Type:Provider Instructions for Treatment How to access health informa tion online Indication:Current non-smoker Start:01-Sep-2018 Instruction Type:Patient Education How to access health informa tion online - Detail Indication:Current non-smoker Start:01-Sep-2018 Instruction Type:Patient Education Patient Instructions Indication:Current non-smoker Start:01-Sep-2018 Instruction Type:Provider Instructions for Treatment How to access health informa tion online - Detail Indication:BMI 34.0-34.9,adult Start:16-Aug-2018 Instruction Type:Patient Education How to access health informa tion online Indication:BMI 34.0-34.9,adult Start:16-Aug-2018 Instruction Type:Patient Education Patient Instructions Indication:BMI 34.0-34.9,adult Start:16-Aug-2018 Instruction Type:Provider Instructions for Treatment How to access health informa tion online Indication:Bronchitis due to tobacco use Start:25-Nov-2016 Instruction Type:Patient Education How to access health informa tion online - Detail Indication:Bronchitis due to tobacco use Start:25-Nov-2016 Instruction Type:Patient Education Patient Instructions Indication:Bronchitis due to tobacco use Start:25-Nov-2016 Instruction Type:Provider Instructions for Treatment How to access health informa tion online Indication:Cough Start:11-Nov-2016 Instruction Type:Patient Education How to access health informa tion online - Detail Indication:Cough Start:11-Nov-2016 Instruction Type:Patient Education Patient Instructions Indication:Cough Start:11-Nov-2016 Instruction Type:Provider Instructions for Treatment How to access health informa tion online Indication:Bronchitis Start:24-Sep-2016 Instruction Type:Patient Education How to access health informa tion online - Detail Indication:Bronchitis Start:24-Sep-2016 Instruction Type:Patient Education Patient Instructions Indication:Bronchitis Start:24-Sep-2016 Instruction Type:Provider Instructions for Treatment How to access health informa tion online Indication:Chest congestion Start:17-Sep-2016 Instruction Type:Patient Education How to access health informa tion online - Detail Indication:Chest congestion Start:17-Sep-2016 Instruction Type:Patient Education Patient Instructions Indication:Chest congestion Start:17-Sep-2016 Instruction Type:Provider Instructions for Treatment How to access health informa tion online Indication:Current non-smoker Start:29-Jul-2016 Instruction Type:Patient Education How to access health informa tion online - Detail Indication:Current non-smoker Start:29-Jul-2016 Instruction Type:Patient Education Patient Instructions Indication:Current non-smoker Start:29-Jul-2016 Instruction Type:Provider Instructions for Treatment Patient Instructions Indication:Cellulitis Start:09-Aug-2015 Instruction Type:Provider Instructions for Treatment Patient Instructions Indication:Pharyngitis, acute Start:31-Jan-2013 Instruction Type:Provider Instructions for Treatment Patient Instructions Indication:Asthma, intrinsic, with status asthmaticus Start:28-Jun-2012 Instruction Type:Provider Instructions for Treatment Patient Instructions Indication:Hyperlipidemia Start:17-May-2012 Instruction Type:Provider Instructions for Treatment [facility]; [facility] Work Phone: Instructions* Name Dates Details Patient Instructions Indication:Non-smoker Start:26-Oct-2022 Instruction Type:Provider Instructions for Treatment How to Access Health Informa tion Online using Patient Portal and [employer] Apps Indication:Non-smoker Start:26-Oct-2022 Instruction Type:Patient Education Patient Instructions Indication:Non-smoker Start:20-Apr-2022 Instruction Type:Provider Instructions for Treatment How to Access Health Informa tion Online using Patient Portal and [employer] Apps Indication:Non-smoker Start:20-Apr-2022 Instruction Type:Patient Education Patient Instructions Indication:Urinary frequency Start:08-Apr-2022 Instruction Type:Provider Instructions for Treatment How to Access Health Informa tion Online using Patient Portal and [employer] Apps Indication:Urinary frequency Start:08-Apr-2022 Instruction Type:Patient Education Patient Instructions Indication:Non-smoker Start:08-Oct-2021 Instruction Type:Provider Instructions for Treatment How to Access Health Informa tion Online using Patient Portal and [employer] Apps Indication:Non-smoker Start:08-Oct-2021 Instruction Type:Patient Education Patient Instructions Indication:BMI 36.0-36.9,adult Start:18-Jul-2021 Instruction Type:Provider Instructions for Treatment How to Access Health Informa tion Online using Patient Portal and [employer] Apps Indication:BMI 36.0-36.9,adult Start:18-Jul-2021 Instruction Type:Patient Education Patient Instructions Indication:Non-smoker Start:09-May-2021 Instruction Type:Provider Instructions for Treatment How to Access Health Informa tion Online using Patient Portal and [employer] Apps Indication:Non-smoker Start:09-May-2021 Instruction Type:Patient Education How to Access Health Informa tion Online using Patient Portal and [employer] Apps Indication:Non-smoker Start:17-Mar-2021 Instruction Type:Patient Education Patient Instructions Indication:Non-smoker Start:17-Mar-2021 Instruction Type:Provider Instructions for Treatment obesity counseling Indication:Obstructive sleep apnea, adult Start:01-Oct-2020 Instruction Type:Provider Instructions for Treatment cardiovascular counseling Indication:Atrial fibrillation Start:01-Oct-2020 Instruction Type:Provider Instructions for Treatment How to Access Health Informa tion Online using Patient Portal and [employer] Apps Indication:Non-smoker Start:01-Oct-2020 Instruction Type:Patient Education Patient Instructions Indication:Non-smoker Start:01-Oct-2020 Instruction Type:Provider Instructions for Treatment Patient Instructions Indication:Non-smoker Start:16-Sep-2020 Instruction Type:Provider Instructions for Treatment How to Access Health Informa tion Online using Patient Portal and [employer] Apps Indication:Non-smoker Start:16-Sep-2020 Instruction Type:Patient Education How to access health informa tion online Indication:Non-smoker Start:16-May-2020 Instruction Type:Patient Education How to access health informa tion online - Detail Indication:Non-smoker Start:16-May-2020 Instruction Type:Patient Education Patient Instructions Indication:Non-smoker Start:16-May-2020 Instruction Type:Provider Instructions for Treatment How to access health informa tion online Indication:Non-smoker Start:10-May-2020 Instruction Type:Patient Education How to access health informa tion online - Detail Indication:Non-smoker Start:10-May-2020 Instruction Type:Patient Education Patient Instructions Indication:Non-smoker Start:10-May-2020 Instruction Type:Provider Instructions for Treatment How to access health informa tion online Indication:BMI 35.0-35.9,adult Start:04-Jan-2020 Instruction Type:Patient Education How to access health informa tion online - Detail Indication:BMI 35.0-35.9,adult Start:04-Jan-2020 Instruction Type:Patient Education Patient Instructions Indication:BMI 35.0-35.9,adult Start:04-Jan-2020 Instruction Type:Provider Instructions for Treatment How to access health informa tion online Indication:Current non-smoker Start:27-Feb-2019 Instruction Type:Patient Education How to access health informa tion online - Detail Indication:Current non-smoker Start:27-Feb-2019 Instruction Type:Patient Education Patient Instructions Indication:Eye swelling, right Start:27-Feb-2019 Instruction Type:Provider Instructions for Treatment How to access health informa tion online Indication:Current non-smoker Start:01-Sep-2018 Instruction Type:Patient Education How to access health informa tion online - Detail Indication:Current non-smoker Start:01-Sep-2018 Instruction Type:Patient Education Patient Instructions Indication:Current non-smoker Start:01-Sep-2018 Instruction Type:Provider Instructions for Treatment How to access health informa tion online - Detail Indication:BMI 34.0-34.9,adult Start:16-Aug-2018 Instruction Type:Patient Education How to access health informa tion online Indication:BMI 34.0-34.9,adult Start:16-Aug-2018 Instruction Type:Patient Education Patient Instructions Indication:BMI 34.0-34.9,adult Start:16-Aug-2018 Instruction Type:Provider Instructions for Treatment How to access health informa tion online Indication:Bronchitis due to tobacco use Start:25-Nov-2016 Instruction Type:Patient Education How to access health informa tion online - Detail Indication:Bronchitis due to tobacco use Start:25-Nov-2016 Instruction Type:Patient Education Patient Instructions Indication:Bronchitis due to tobacco use Start:25-Nov-2016 Instruction Type:Provider Instructions for Treatment How to access health informa tion online Indication:Cough Start:11-Nov-2016 Instruction Type:Patient Education How to access health informa tion online - Detail Indication:Cough Start:11-Nov-2016 Instruction Type:Patient Education Patient Instructions Indication:Cough Start:11-Nov-2016 Instruction Type:Provider Instructions for Treatment How to access health informa tion online Indication:Bronchitis Start:24-Sep-2016 Instruction Type:Patient Education How to access health informa tion online - Detail Indication:Bronchitis Start:24-Sep-2016 Instruction Type:Patient Education Patient Instructions Indication:Bronchitis Start:24-Sep-2016 Instruction Type:Provider Instructions for Treatment How to access health informa tion online Indication:Chest congestion Start:17-Sep-2016 Instruction Type:Patient Education How to access health informa tion online - Detail Indication:Chest congestion Start:17-Sep-2016 Instruction Type:Patient Education Patient Instructions Indication:Chest congestion Start:17-Sep-2016 Instruction Type:Provider Instructions for Treatment How to access health informa tion online Indication:Current non-smoker Start:29-Jul-2016 Instruction Type:Patient Education How to access health informa tion online - Detail Indication:Current non-smoker Start:29-Jul-2016 Instruction Type:Patient Education Patient Instructions Indication:Current non-smoker Start:29-Jul-2016 Instruction Type:Provider Instructions for Treatment Patient Instructions Indication:Cellulitis Start:09-Aug-2015 Instruction Type:Provider Instructions for Treatment Patient Instructions Indication:Pharyngitis, acute Start:31-Jan-2013 Instruction Type:Provider Instructions for Treatment Patient Instructions Indication:Asthma, intrinsic, with status asthmaticus Start:28-Jun-2012 Instruction Type:Provider Instructions for Treatment Patient Instructions Indication:Hyperlipidemia Start:17-May-2012 Instruction Type:Provider Instructions for Treatment [facility] Work Phone: Summary Purpose Family History No Family History Records FoundUnknown Family Member Name Dates Details Family Members In General Comments:Breast Ca Status:Active Father Comments:tri was bicuspid va lve-- replaced Status:Active Maternal Grandmother Comments:dementia Status:Active Mother Comments:colon ca- diagnosed age 72 Status:Active Paternal Grandmother Comments:Berast Ca Status:Active Unknown Family Member Name Dates Details Family Members In General Comments:Breast Ca Status:Active Father Comments:tri was bicuspid va lve-- replaced Status:Active Maternal Grandmother Comments:dementia Status:Active Mother Comments:colon ca- diagnosed age 72 Status:Active Paternal Grandmother Comments:Berast Ca Status:Active Unknown Family Member Name Dates Details Family Members In General Comments:Breast Ca Status:Active Father Comments:tri was bicuspid va lve-- replaced Status:Active Maternal Grandmother Comments:dementia Status:Active Mother Comments:colon ca- diagnosed age 72 Status:Active Paternal Grandmother Comments:Berast Ca Status:Active Unknown Family Member Name Dates Details Family Members In General Comments:Breast Ca Status:Active Father Comments:tri was bicuspid va lve-- replaced Status:Active Maternal Grandmother Comments:dementia Status:Active Mother Comments:colon ca- diagnosed age 72 Status:Active Paternal Grandmother Comments:Berast Ca Status:Active Unknown Family Member Name Dates Details Family Members In General Comments:Breast Ca Status:Active Father Comments:tri was bicuspid va lve-- replaced Status:Active Maternal Grandmother Comments:dementia Status:Active Mother Comments:colon ca- diagnosed age 72 Status:Active Paternal Grandmother Comments:Berast Ca Status:Active Unknown Family Member Name Dates Details Family Members In General Comments:Breast Ca Status:Active Father Comments:tri was bicuspid va lve-- replaced Status:Active Maternal Grandmother Comments:dementia Status:Active Mother Comments:colon ca- diagnosed age 72 Status:Active Paternal Grandmother Comments:Berast Ca Status:Active Unknown Family Member Name Dates Details Family Members In General Comments:Breast Ca Status:Active Father Comments:tri was bicuspid va lve-- replaced Status:Active Maternal Grandmother Comments:dementia Status:Active Mother Comments:colon ca- diagnosed age 72 Status:Active Paternal Grandmother Comments:Berast Ca Status:Active Unknown Family Member Name Dates Details Family Members In General Comments:Breast Ca Status:Active Father Comments:tri was bicuspid va lve-- replaced Status:Active Maternal Grandmother Comments:dementia Status:Active Mother Comments:colon ca- diagnosed age 72 Status:Active Paternal Grandmother Comments:Berast Ca Status:Active Unknown Family Member Name Dates Details Family Members In General Comments:Breast Ca Status:Active Father Comments:tri was bicuspid va lve-- replaced Status:Active Maternal Grandmother Comments:dementia Status:Active Mother Comments:colon ca- diagnosed age 72 Status:Active Paternal Grandmother Comments:Berast Ca Status:Active Unknown Family Member Name Dates Details Family Members In General Comments:Breast Ca Status:Active Father Comments:tri was bicuspid va lve-- replaced Status:Active Maternal Grandmother Comments:dementia Status:Active Mother Comments:colon ca- diagnosed age 72 Status:Active Paternal Grandmother Comments:Berast Ca Status:Active Unknown Family Member Name Dates Details Family Members In General Comments:Breast Ca Status:Active Father Comments:tri was bicuspid va lve-- replaced Status:Active Maternal Grandmother Comments:dementia Status:Active Mother Comments:colon ca- diagnosed age 72 Status:Active Paternal Grandmother Comments:Berast Ca Status:Active Unknown Family Member Name Dates Details Family Members In General Comments:Breast Ca Status:Active Father Comments:tri was bicuspid va lve-- replaced Status:Active Maternal Grandmother Comments:dementia Status:Active Mother Comments:colon ca- diagnosed age 72 Status:Active Paternal Grandmother Comments:Berast Ca Status:Active Unknown Family Member Name Dates Details Family Members In General Comments:Breast Ca Status:Active Father Comments:tri was bicuspid va lve-- replaced Status:Active Maternal Grandmother Comments:dementia Status:Active Mother Comments:colon ca- diagnosed age 72 Status:Active Paternal Grandmother Comments:Berast Ca Status:Active Unknown Family Member Name Dates Details Family Members In General Comments:Breast Ca Status:Active Father Comments:tri was bicuspid va lve-- replaced Status:Active Maternal Grandmother Comments:dementia Status:Active Mother Comments:colon ca- diagnosed age 72 Status:Active Paternal Grandmother Comments:Berast Ca Status:Active Unknown Family Member Name Dates Details Family Members In General Comments:Breast Ca Status:Active Father Comments:tri was bicuspid va lve-- replaced Status:Active Maternal Grandmother Comments:dementia Status:Active Mother Comments:colon ca- diagnosed age 72 Status:Active Paternal Grandmother Comments:Berast Ca Status:Active Unknown Family Member Name Dates Details Family Members In General Comments:Breast Ca Status:Active Father Comments:tri was bicuspid va lve-- replaced Status:Active Maternal Grandmother Comments:dementia Status:Active Mother Comments:colon ca- diagnosed age 72 Status:Active Paternal Grandmother Comments:Berast Ca Status:Active Unknown Family Member Name Dates Details Family Members In General Comments:Breast Ca Status:Active Father Comments:tri was bicuspid va lve-- replaced Status:Active Maternal Grandmother Comments:dementia Status:Active Mother Comments:colon ca- diagnosed age 72 Status:Active Paternal Grandmother Comments:Berast Ca Status:Active Unknown Family Member Name Dates Details Family Members In General Comments:Breast Ca Status:Active Father Comments:tri was bicuspid va lve-- replaced Status:Active Maternal Grandmother Comments:dementia Status:Active Mother Comments:colon ca- diagnosed age 72 Status:Active Paternal Grandmother Comments:Berast Ca Status:Active Unknown Family Member Name Dates Details Family Members In General Comments:Breast Ca Status:Active Father Comments:tri was bicuspid va lve-- replaced Status:Active Maternal Grandmother Comments:dementia Status:Active Mother Comments:colon ca- diagnosed age 72 Status:Active Paternal Grandmother Comments:Berast Ca Status:Active Unknown Family Member Name Dates Details Family Members In General Comments:Breast Ca Status:Active Father Comments:tri was bicuspid va lve-- replaced Status:Active Maternal Grandmother Comments:dementia Status:Active Mother Comments:colon ca- diagnosed age 72 Status:Active Paternal Grandmother Comments:Berast Ca Status:Active Unknown Family Member Name Dates Details Family Members In General Comments:Breast Ca Status:Active Father Comments:tri was bicuspid va lve-- replaced Status:Active Maternal Grandmother Comments:dementia Status:Active Mother Comments:colon ca- diagnosed age 72 Status:Active Paternal Grandmother Comments:Berast Ca Status:Active Unknown Family Member Name Dates Details Family Members In General Comments:Breast Ca Status:Active Father Comments:tri was bicuspid va lve-- replaced Status:Active Maternal Grandmother Comments:dementia Status:Active Mother Comments:colon ca- diagnosed age 72 Status:Active Paternal Grandmother Comments:Berast Ca Status:Active Unknown Family Member Name Dates Details Family Members In General Comments:Breast Ca Status:Active Father Comments:tri was bicuspid va lve-- replaced Status:Active Maternal Grandmother Comments:dementia Status:Active Mother Comments:colon ca- diagnosed age 72 Status:Active Paternal Grandmother Comments:Berast Ca Status:Active Unknown Family Member Name Dates Details Family Members In General Comments:Breast Ca Status:Active Father Comments:tri was bicuspid va lve-- replaced Status:Active Maternal Grandmother Comments:dementia Status:Active Mother Comments:colon ca- diagnosed age 72 Status:Active Paternal Grandmother Comments:Berast Ca Status:Active Advance Directives No Advanced Directives Records FoundNo Advanced Directives Records FoundNo Advanced Directives Records FoundNo Advanced Directives Records FoundNo Advanced Directives Records Found Instructions Name Dates Details BMI 34.0-34.9,adult : How to access health information online - Detail Indication:BMI 34.0-34.9,adult BMI 34.0-34.9,adult : How to access health information online Indication:BMI 34.0-34.9,adult BMI 34.0-34.9,adult : Patien t Instructions Indication:BMI 34.0-34.9,adult Bronchitis due to tobacco us e : How to access health information online Indication:Bronchitis due to tobacco use Bronchitis due to tobacco us e : How to access health information online - Detail Indication:Bronchitis due to tobacco use Bronchitis due to tobacco us e : Patient Instructions Indication:Bronchitis due to tobacco use Cough : How to access health information online Indication:Cough Cough : How to access health information online - Detail Indication:Cough Cough : Patient Instructions Indication:Cough Bronchitis : How to access h ealth information online Indication:Bronchitis Bronchitis : How to access h ealth information online - Detail Indication:Bronchitis Bronchitis : Patient Instruc tions Indication:Bronchitis Chest congestion : How to ac cess health information online Indication:Chest congestion Chest congestion : How to ac cess health information online - Detail Indication:Chest congestion Chest congestion : Patient I nstructions Indication:Chest congestion Current non-smoker : How to access health information online Indication:Current non-smoker Current non-smoker : How to access health information online - Detail Indication:Current non-smoker Current non-smoker : Patient Instructions Indication:Current non-smoker Cellulitis : Patient Instruc tions Indication:Cellulitis Pharyngitis, acute : Patient Instructions Indication:Pharyngitis, acute Asthma, intrinsic, with stat us asthmaticus : Patient Instructions Indication:Asthma, intrinsic, with status asthmaticus Hyperlipidemia : Patient Ins tructions Indication:Hyperlipidemia Name Dates Details Current non-smoker : How to access health information online Indication:Current non-smoker Current non-smoker : How to access health information online - Detail Indication:Current non-smoker Current non-smoker : Patient Instructions Indication:Current non-smoker BMI 34.0-34.9,adult : How to access health information online - Detail Indication:BMI 34.0-34.9,adult BMI 34.0-34.9,adult : How to access health information online Indication:BMI 34.0-34.9,adult BMI 34.0-34.9,adult : Patien t Instructions Indication:BMI 34.0-34.9,adult Bronchitis due to tobacco us e : How to access health information online Indication:Bronchitis due to tobacco use Bronchitis due to tobacco us e : How to access health information online - Detail Indication:Bronchitis due to tobacco use Bronchitis due to tobacco us e : Patient Instructions Indication:Bronchitis due to tobacco use Cough : How to access health information online Indication:Cough Cough : How to access health information online - Detail Indication:Cough Cough : Patient Instructions Indication:Cough Bronchitis : How to access h ealth information online Indication:Bronchitis Bronchitis : How to access h ealth information online - Detail Indication:Bronchitis Bronchitis : Patient Instruc tions Indication:Bronchitis Chest congestion : How to ac cess health information online Indication:Chest congestion Chest congestion : How to ac cess health information online - Detail Indication:Chest congestion Chest congestion : Patient I nstructions Indication:Chest congestion Cellulitis : Patient Instruc tions Indication:Cellulitis Pharyngitis, acute : Patient Instructions Indication:Pharyngitis, acute Asthma, intrinsic, with stat us asthmaticus : Patient Instructions Indication:Asthma, intrinsic, with status asthmaticus Hyperlipidemia : Patient Ins tructions Indication:Hyperlipidemia Name Dates Details How to access health informa tion online Indication:Current non-smoker Start:27-Feb-2019 Instruction Type:Patient Education How to access health informa tion online - Detail Indication:Current non-smoker Start:27-Feb-2019 Instruction Type:Patient Education Patient Instructions Indication:Eye swelling, right Start:27-Feb-2019 Instruction Type:Provider Instructions for Treatment How to access health informa tion online Indication:Current non-smoker Start:01-Sep-2018 Instruction Type:Patient Education How to access health informa tion online - Detail Indication:Current non-smoker Start:01-Sep-2018 Instruction Type:Patient Education Patient Instructions Indication:Current non-smoker Start:01-Sep-2018 Instruction Type:Provider Instructions for Treatment How to access health informa tion online - Detail Indication:BMI 34.0-34.9,adult Start:16-Aug-2018 Instruction Type:Patient Education How to access health informa tion online Indication:BMI 34.0-34.9,adult Start:16-Aug-2018 Instruction Type:Patient Education Patient Instructions Indication:BMI 34.0-34.9,adult Start:16-Aug-2018 Instruction Type:Provider Instructions for Treatment How to access health informa tion online Indication:Bronchitis due to tobacco use Start:25-Nov-2016 Instruction Type:Patient Education How to access health informa tion online - Detail Indication:Bronchitis due to tobacco use Start:25-Nov-2016 Instruction Type:Patient Education Patient Instructions Indication:Bronchitis due to tobacco use Start:25-Nov-2016 Instruction Type:Provider Instructions for Treatment How to access health informa tion online Indication:Cough Start:11-Nov-2016 Instruction Type:Patient Education How to access health informa tion online - Detail Indication:Cough Start:11-Nov-2016 Instruction Type:Patient Education Patient Instructions Indication:Cough Start:11-Nov-2016 Instruction Type:Provider Instructions for Treatment How to access health informa tion online Indication:Bronchitis Start:24-Sep-2016 Instruction Type:Patient Education How to access health informa tion online - Detail Indication:Bronchitis Start:24-Sep-2016 Instruction Type:Patient Education Patient Instructions Indication:Bronchitis Start:24-Sep-2016 Instruction Type:Provider Instructions for Treatment How to access health informa tion online Indication:Chest congestion Start:17-Sep-2016 Instruction Type:Patient Education How to access health informa tion online - Detail Indication:Chest congestion Start:17-Sep-2016 Instruction Type:Patient Education Patient Instructions Indication:Chest congestion Start:17-Sep-2016 Instruction Type:Provider Instructions for Treatment How to access health informa tion online Indication:Current non-smoker Start:29-Jul-2016 Instruction Type:Patient Education How to access health informa tion online - Detail Indication:Current non-smoker Start:29-Jul-2016 Instruction Type:Patient Education Patient Instructions Indication:Current non-smoker Start:29-Jul-2016 Instruction Type:Provider Instructions for Treatment Patient Instructions Indication:Cellulitis Start:09-Aug-2015 Instruction Type:Provider Instructions for Treatment Patient Instructions Indication:Pharyngitis, acute Start:31-Jan-2013 Instruction Type:Provider Instructions for Treatment Patient Instructions Indication:Asthma, intrinsic, with status asthmaticus Start:28-Jun-2012 Instruction Type:Provider Instructions for Treatment Patient Instructions Indication:Hyperlipidemia Start:17-May-2012 Instruction Type:Provider Instructions for Treatment Name Dates Details How to access health informa tion online Indication:BMI 35.0-35.9,adult Start:04-Jan-2020 Instruction Type:Patient Education How to access health informa tion online - Detail Indication:BMI 35.0-35.9,adult Start:04-Jan-2020 Instruction Type:Patient Education Patient Instructions Indication:BMI 35.0-35.9,adult Start:04-Jan-2020 Instruction Type:Provider Instructions for Treatment How to access health informa tion online Indication:Current non-smoker Start:27-Feb-2019 Instruction Type:Patient Education How to access health informa tion online - Detail Indication:Current non-smoker Start:27-Feb-2019 Instruction Type:Patient Education Patient Instructions Indication:Eye swelling, right Start:27-Feb-2019 Instruction Type:Provider Instructions for Treatment How to access health informa tion online Indication:Current non-smoker Start:01-Sep-2018 Instruction Type:Patient Education How to access health informa tion online - Detail Indication:Current non-smoker Start:01-Sep-2018 Instruction Type:Patient Education Patient Instructions Indication:Current non-smoker Start:01-Sep-2018 Instruction Type:Provider Instructions for Treatment How to access health informa tion online - Detail Indication:BMI 34.0-34.9,adult Start:16-Aug-2018 Instruction Type:Patient Education How to access health informa tion online Indication:BMI 34.0-34.9,adult Start:16-Aug-2018 Instruction Type:Patient Education Patient Instructions Indication:BMI 34.0-34.9,adult Start:16-Aug-2018 Instruction Type:Provider Instructions for Treatment How to access health informa tion online Indication:Bronchitis due to tobacco use Start:25-Nov-2016 Instruction Type:Patient Education How to access health informa tion online - Detail Indication:Bronchitis due to tobacco use Start:25-Nov-2016 Instruction Type:Patient Education Patient Instructions Indication:Bronchitis due to tobacco use Start:25-Nov-2016 Instruction Type:Provider Instructions for Treatment How to access health informa tion online Indication:Cough Start:11-Nov-2016 Instruction Type:Patient Education How to access health informa tion online - Detail Indication:Cough Start:11-Nov-2016 Instruction Type:Patient Education Patient Instructions Indication:Cough Start:11-Nov-2016 Instruction Type:Provider Instructions for Treatment How to access health informa tion online Indication:Bronchitis Start:24-Sep-2016 Instruction Type:Patient Education How to access health informa tion online - Detail Indication:Bronchitis Start:24-Sep-2016 Instruction Type:Patient Education Patient Instructions Indication:Bronchitis Start:24-Sep-2016 Instruction Type:Provider Instructions for Treatment How to access health informa tion online Indication:Chest congestion Start:17-Sep-2016 Instruction Type:Patient Education How to access health informa tion online - Detail Indication:Chest congestion Start:17-Sep-2016 Instruction Type:Patient Education Patient Instructions Indication:Chest congestion Start:17-Sep-2016 Instruction Type:Provider Instructions for Treatment How to access health informa tion online Indication:Current non-smoker Start:29-Jul-2016 Instruction Type:Patient Education How to access health informa tion online - Detail Indication:Current non-smoker Start:29-Jul-2016 Instruction Type:Patient Education Patient Instructions Indication:Current non-smoker Start:29-Jul-2016 Instruction Type:Provider Instructions for Treatment Patient Instructions Indication:Cellulitis Start:09-Aug-2015 Instruction Type:Provider Instructions for Treatment Patient Instructions Indication:Pharyngitis, acute Start:31-Jan-2013 Instruction Type:Provider Instructions for Treatment Patient Instructions Indication:Asthma, intrinsic, with status asthmaticus Start:28-Jun-2012 Instruction Type:Provider Instructions for Treatment Patient Instructions Indication:Hyperlipidemia Start:17-May-2012 Instruction Type:Provider Instructions for Treatment Name Dates Details How to access health informa tion online Indication:Non-smoker Start:10-May-2020 Instruction Type:Patient Education How to access health informa tion online - Detail Indication:Non-smoker Start:10-May-2020 Instruction Type:Patient Education Patient Instructions Indication:Non-smoker Start:10-May-2020 Instruction Type:Provider Instructions for Treatment How to access health informa tion online Indication:BMI 35.0-35.9,adult Start:04-Jan-2020 Instruction Type:Patient Education How to access health informa tion online - Detail Indication:BMI 35.0-35.9,adult Start:04-Jan-2020 Instruction Type:Patient Education Patient Instructions Indication:BMI 35.0-35.9,adult Start:04-Jan-2020 Instruction Type:Provider Instructions for Treatment How to access health informa tion online Indication:Current non-smoker Start:27-Feb-2019 Instruction Type:Patient Education How to access health informa tion online - Detail Indication:Current non-smoker Start:27-Feb-2019 Instruction Type:Patient Education Patient Instructions Indication:Eye swelling, right Start:27-Feb-2019 Instruction Type:Provider Instructions for Treatment How to access health informa tion online Indication:Current non-smoker Start:01-Sep-2018 Instruction Type:Patient Education How to access health informa tion online - Detail Indication:Current non-smoker Start:01-Sep-2018 Instruction Type:Patient Education Patient Instructions Indication:Current non-smoker Start:01-Sep-2018 Instruction Type:Provider Instructions for Treatment How to access health informa tion online - Detail Indication:BMI 34.0-34.9,adult Start:16-Aug-2018 Instruction Type:Patient Education How to access health informa tion online Indication:BMI 34.0-34.9,adult Start:16-Aug-2018 Instruction Type:Patient Education Patient Instructions Indication:BMI 34.0-34.9,adult Start:16-Aug-2018 Instruction Type:Provider Instructions for Treatment How to access health informa tion online Indication:Bronchitis due to tobacco use Start:25-Nov-2016 Instruction Type:Patient Education How to access health informa tion online - Detail Indication:Bronchitis due to tobacco use Start:25-Nov-2016 Instruction Type:Patient Education Patient Instructions Indication:Bronchitis due to tobacco use Start:25-Nov-2016 Instruction Type:Provider Instructions for Treatment How to access health informa tion online Indication:Cough Start:11-Nov-2016 Instruction Type:Patient Education How to access health informa tion online - Detail Indication:Cough Start:11-Nov-2016 Instruction Type:Patient Education Patient Instructions Indication:Cough Start:11-Nov-2016 Instruction Type:Provider Instructions for Treatment How to access health informa tion online Indication:Bronchitis Start:24-Sep-2016 Instruction Type:Patient Education How to access health informa tion online - Detail Indication:Bronchitis Start:24-Sep-2016 Instruction Type:Patient Education Patient Instructions Indication:Bronchitis Start:24-Sep-2016 Instruction Type:Provider Instructions for Treatment How to access health informa tion online Indication:Chest congestion Start:17-Sep-2016 Instruction Type:Patient Education How to access health informa tion online - Detail Indication:Chest congestion Start:17-Sep-2016 Instruction Type:Patient Education Patient Instructions Indication:Chest congestion Start:17-Sep-2016 Instruction Type:Provider Instructions for Treatment How to access health informa tion online Indication:Current non-smoker Start:29-Jul-2016 Instruction Type:Patient Education How to access health informa tion online - Detail Indication:Current non-smoker Start:29-Jul-2016 Instruction Type:Patient Education Patient Instructions Indication:Current non-smoker Start:29-Jul-2016 Instruction Type:Provider Instructions for Treatment Patient Instructions Indication:Cellulitis Start:09-Aug-2015 Instruction Type:Provider Instructions for Treatment Patient Instructions Indication:Pharyngitis, acute Start:31-Jan-2013 Instruction Type:Provider Instructions for Treatment Patient Instructions Indication:Asthma, intrinsic, with status asthmaticus Start:28-Jun-2012 Instruction Type:Provider Instructions for Treatment Patient Instructions Indication:Hyperlipidemia Start:17-May-2012 Instruction Type:Provider Instructions for Treatment Name Dates Details How to access health informa tion online Indication:Non-smoker Start:10-May-2020 Instruction Type:Patient Education How to access health informa tion online - Detail Indication:Non-smoker Start:10-May-2020 Instruction Type:Patient Education Patient Instructions Indication:Non-smoker Start:10-May-2020 Instruction Type:Provider Instructions for Treatment How to access health informa tion online Indication:BMI 35.0-35.9,adult Start:04-Jan-2020 Instruction Type:Patient Education How to access health informa tion online - Detail Indication:BMI 35.0-35.9,adult Start:04-Jan-2020 Instruction Type:Patient Education Patient Instructions Indication:BMI 35.0-35.9,adult Start:04-Jan-2020 Instruction Type:Provider Instructions for Treatment How to access health informa tion online Indication:Current non-smoker Start:27-Feb-2019 Instruction Type:Patient Education How to access health informa tion online - Detail Indication:Current non-smoker Start:27-Feb-2019 Instruction Type:Patient Education Patient Instructions Indication:Eye swelling, right Start:27-Feb-2019 Instruction Type:Provider Instructions for Treatment How to access health informa tion online Indication:Current non-smoker Start:01-Sep-2018 Instruction Type:Patient Education How to access health informa tion online - Detail Indication:Current non-smoker Start:01-Sep-2018 Instruction Type:Patient Education Patient Instructions Indication:Current non-smoker Start:01-Sep-2018 Instruction Type:Provider Instructions for Treatment How to access health informa tion online - Detail Indication:BMI 34.0-34.9,adult Start:16-Aug-2018 Instruction Type:Patient Education How to access health informa tion online Indication:BMI 34.0-34.9,adult Start:16-Aug-2018 Instruction Type:Patient Education Patient Instructions Indication:BMI 34.0-34.9,adult Start:16-Aug-2018 Instruction Type:Provider Instructions for Treatment How to access health informa tion online Indication:Bronchitis due to tobacco use Start:25-Nov-2016 Instruction Type:Patient Education How to access health informa tion online - Detail Indication:Bronchitis due to tobacco use Start:25-Nov-2016 Instruction Type:Patient Education Patient Instructions Indication:Bronchitis due to tobacco use Start:25-Nov-2016 Instruction Type:Provider Instructions for Treatment How to access health informa tion online Indication:Cough Start:11-Nov-2016 Instruction Type:Patient Education How to access health informa tion online - Detail Indication:Cough Start:11-Nov-2016 Instruction Type:Patient Education Patient Instructions Indication:Cough Start:11-Nov-2016 Instruction Type:Provider Instructions for Treatment How to access health informa tion online Indication:Bronchitis Start:24-Sep-2016 Instruction Type:Patient Education How to access health informa tion online - Detail Indication:Bronchitis Start:24-Sep-2016 Instruction Type:Patient Education Patient Instructions Indication:Bronchitis Start:24-Sep-2016 Instruction Type:Provider Instructions for Treatment How to access health informa tion online Indication:Chest congestion Start:17-Sep-2016 Instruction Type:Patient Education How to access health informa tion online - Detail Indication:Chest congestion Start:17-Sep-2016 Instruction Type:Patient Education Patient Instructions Indication:Chest congestion Start:17-Sep-2016 Instruction Type:Provider Instructions for Treatment How to access health informa tion online Indication:Current non-smoker Start:29-Jul-2016 Instruction Type:Patient Education How to access health informa tion online - Detail Indication:Current non-smoker Start:29-Jul-2016 Instruction Type:Patient Education Patient Instructions Indication:Current non-smoker Start:29-Jul-2016 Instruction Type:Provider Instructions for Treatment Patient Instructions Indication:Cellulitis Start:09-Aug-2015 Instruction Type:Provider Instructions for Treatment Patient Instructions Indication:Pharyngitis, acute Start:31-Jan-2013 Instruction Type:Provider Instructions for Treatment Patient Instructions Indication:Asthma, intrinsic, with status asthmaticus Start:28-Jun-2012 Instruction Type:Provider Instructions for Treatment Patient Instructions Indication:Hyperlipidemia Start:17-May-2012 Instruction Type:Provider Instructions for Treatment Name Dates Details How to access health informa tion online Indication:Non-smoker Start:16-May-2020 Instruction Type:Patient Education How to access health informa tion online - Detail Indication:Non-smoker Start:16-May-2020 Instruction Type:Patient Education Patient Instructions Indication:Non-smoker Start:16-May-2020 Instruction Type:Provider Instructions for Treatment How to access health informa tion online Indication:Non-smoker Start:10-May-2020 Instruction Type:Patient Education How to access health informa tion online - Detail Indication:Non-smoker Start:10-May-2020 Instruction Type:Patient Education Patient Instructions Indication:Non-smoker Start:10-May-2020 Instruction Type:Provider Instructions for Treatment How to access health informa tion online Indication:BMI 35.0-35.9,adult Start:04-Jan-2020 Instruction Type:Patient Education How to access health informa tion online - Detail Indication:BMI 35.0-35.9,adult Start:04-Jan-2020 Instruction Type:Patient Education Patient Instructions Indication:BMI 35.0-35.9,adult Start:04-Jan-2020 Instruction Type:Provider Instructions for Treatment How to access health informa tion online Indication:Current non-smoker Start:27-Feb-2019 Instruction Type:Patient Education How to access health informa tion online - Detail Indication:Current non-smoker Start:27-Feb-2019 Instruction Type:Patient Education Patient Instructions Indication:Eye swelling, right Start:27-Feb-2019 Instruction Type:Provider Instructions for Treatment How to access health informa tion online Indication:Current non-smoker Start:01-Sep-2018 Instruction Type:Patient Education How to access health informa tion online - Detail Indication:Current non-smoker Start:01-Sep-2018 Instruction Type:Patient Education Patient Instructions Indication:Current non-smoker Start:01-Sep-2018 Instruction Type:Provider Instructions for Treatment How to access health informa tion online - Detail Indication:BMI 34.0-34.9,adult Start:16-Aug-2018 Instruction Type:Patient Education How to access health informa tion online Indication:BMI 34.0-34.9,adult Start:16-Aug-2018 Instruction Type:Patient Education Patient Instructions Indication:BMI 34.0-34.9,adult Start:16-Aug-2018 Instruction Type:Provider Instructions for Treatment How to access health informa tion online Indication:Bronchitis due to tobacco use Start:25-Nov-2016 Instruction Type:Patient Education How to access health informa tion online - Detail Indication:Bronchitis due to tobacco use Start:25-Nov-2016 Instruction Type:Patient Education Patient Instructions Indication:Bronchitis due to tobacco use Start:25-Nov-2016 Instruction Type:Provider Instructions for Treatment How to access health informa tion online Indication:Cough Start:11-Nov-2016 Instruction Type:Patient Education How to access health informa tion online - Detail Indication:Cough Start:11-Nov-2016 Instruction Type:Patient Education Patient Instructions Indication:Cough Start:11-Nov-2016 Instruction Type:Provider Instructions for Treatment How to access health informa tion online Indication:Bronchitis Start:24-Sep-2016 Instruction Type:Patient Education How to access health informa tion online - Detail Indication:Bronchitis Start:24-Sep-2016 Instruction Type:Patient Education Patient Instructions Indication:Bronchitis Start:24-Sep-2016 Instruction Type:Provider Instructions for Treatment How to access health informa tion online Indication:Chest congestion Start:17-Sep-2016 Instruction Type:Patient Education How to access health informa tion online - Detail Indication:Chest congestion Start:17-Sep-2016 Instruction Type:Patient Education Patient Instructions Indication:Chest congestion Start:17-Sep-2016 Instruction Type:Provider Instructions for Treatment How to access health informa tion online Indication:Current non-smoker Start:29-Jul-2016 Instruction Type:Patient Education How to access health informa tion online - Detail Indication:Current non-smoker Start:29-Jul-2016 Instruction Type:Patient Education Patient Instructions Indication:Current non-smoker Start:29-Jul-2016 Instruction Type:Provider Instructions for Treatment Patient Instructions Indication:Cellulitis Start:09-Aug-2015 Instruction Type:Provider Instructions for Treatment Patient Instructions Indication:Pharyngitis, acute Start:31-Jan-2013 Instruction Type:Provider Instructions for Treatment Patient Instructions Indication:Asthma, intrinsic, with status asthmaticus Start:28-Jun-2012 Instruction Type:Provider Instructions for Treatment Patient Instructions Indication:Hyperlipidemia Start:17-May-2012 Instruction Type:Provider Instructions for Treatment Name Dates Details How to access health informa tion online Indication:Non-smoker Start:16-May-2020 Instruction Type:Patient Education How to access health informa tion online - Detail Indication:Non-smoker Start:16-May-2020 Instruction Type:Patient Education Patient Instructions Indication:Non-smoker Start:16-May-2020 Instruction Type:Provider Instructions for Treatment How to access health informa tion online Indication:Non-smoker Start:10-May-2020 Instruction Type:Patient Education How to access health informa tion online - Detail Indication:Non-smoker Start:10-May-2020 Instruction Type:Patient Education Patient Instructions Indication:Non-smoker Start:10-May-2020 Instruction Type:Provider Instructions for Treatment How to access health informa tion online Indication:BMI 35.0-35.9,adult Start:04-Jan-2020 Instruction Type:Patient Education How to access health informa tion online - Detail Indication:BMI 35.0-35.9,adult Start:04-Jan-2020 Instruction Type:Patient Education Patient Instructions Indication:BMI 35.0-35.9,adult Start:04-Jan-2020 Instruction Type:Provider Instructions for Treatment How to access health informa tion online Indication:Current non-smoker Start:27-Feb-2019 Instruction Type:Patient Education How to access health informa tion online - Detail Indication:Current non-smoker Start:27-Feb-2019 Instruction Type:Patient Education Patient Instructions Indication:Eye swelling, right Start:27-Feb-2019 Instruction Type:Provider Instructions for Treatment How to access health informa tion online Indication:Current non-smoker Start:01-Sep-2018 Instruction Type:Patient Education How to access health informa tion online - Detail Indication:Current non-smoker Start:01-Sep-2018 Instruction Type:Patient Education Patient Instructions Indication:Current non-smoker Start:01-Sep-2018 Instruction Type:Provider Instructions for Treatment How to access health informa tion online - Detail Indication:BMI 34.0-34.9,adult Start:16-Aug-2018 Instruction Type:Patient Education How to access health informa tion online Indication:BMI 34.0-34.9,adult Start:16-Aug-2018 Instruction Type:Patient Education Patient Instructions Indication:BMI 34.0-34.9,adult Start:16-Aug-2018 Instruction Type:Provider Instructions for Treatment How to access health informa tion online Indication:Bronchitis due to tobacco use Start:25-Nov-2016 Instruction Type:Patient Education How to access health informa tion online - Detail Indication:Bronchitis due to tobacco use Start:25-Nov-2016 Instruction Type:Patient Education Patient Instructions Indication:Bronchitis due to tobacco use Start:25-Nov-2016 Instruction Type:Provider Instructions for Treatment How to access health informa tion online Indication:Cough Start:11-Nov-2016 Instruction Type:Patient Education How to access health informa tion online - Detail Indication:Cough Start:11-Nov-2016 Instruction Type:Patient Education Patient Instructions Indication:Cough Start:11-Nov-2016 Instruction Type:Provider Instructions for Treatment How to access health informa tion online Indication:Bronchitis Start:24-Sep-2016 Instruction Type:Patient Education How to access health informa tion online - Detail Indication:Bronchitis Start:24-Sep-2016 Instruction Type:Patient Education Patient Instructions Indication:Bronchitis Start:24-Sep-2016 Instruction Type:Provider Instructions for Treatment How to access health informa tion online Indication:Chest congestion Start:17-Sep-2016 Instruction Type:Patient Education How to access health informa tion online - Detail Indication:Chest congestion Start:17-Sep-2016 Instruction Type:Patient Education Patient Instructions Indication:Chest congestion Start:17-Sep-2016 Instruction Type:Provider Instructions for Treatment How to access health informa tion online Indication:Current non-smoker Start:29-Jul-2016 Instruction Type:Patient Education How to access health informa tion online - Detail Indication:Current non-smoker Start:29-Jul-2016 Instruction Type:Patient Education Patient Instructions Indication:Current non-smoker Start:29-Jul-2016 Instruction Type:Provider Instructions for Treatment Patient Instructions Indication:Cellulitis Start:09-Aug-2015 Instruction Type:Provider Instructions for Treatment Patient Instructions Indication:Pharyngitis, acute Start:31-Jan-2013 Instruction Type:Provider Instructions for Treatment Patient Instructions Indication:Asthma, intrinsic, with status asthmaticus Start:28-Jun-2012 Instruction Type:Provider Instructions for Treatment Patient Instructions Indication:Hyperlipidemia Start:17-May-2012 Instruction Type:Provider Instructions for Treatment Name Dates Details How to access health informa tion online Indication:Non-smoker Start:16-May-2020 Instruction Type:Patient Education How to access health informa tion online - Detail Indication:Non-smoker Start:16-May-2020 Instruction Type:Patient Education Patient Instructions Indication:Non-smoker Start:16-May-2020 Instruction Type:Provider Instructions for Treatment How to access health informa tion online Indication:Non-smoker Start:10-May-2020 Instruction Type:Patient Education How to access health informa tion online - Detail Indication:Non-smoker Start:10-May-2020 Instruction Type:Patient Education Patient Instructions Indication:Non-smoker Start:10-May-2020 Instruction Type:Provider Instructions for Treatment How to access health informa tion online Indication:BMI 35.0-35.9,adult Start:04-Jan-2020 Instruction Type:Patient Education How to access health informa tion online - Detail Indication:BMI 35.0-35.9,adult Start:04-Jan-2020 Instruction Type:Patient Education Patient Instructions Indication:BMI 35.0-35.9,adult Start:04-Jan-2020 Instruction Type:Provider Instructions for Treatment How to access health informa tion online Indication:Current non-smoker Start:27-Feb-2019 Instruction Type:Patient Education How to access health informa tion online - Detail Indication:Current non-smoker Start:27-Feb-2019 Instruction Type:Patient Education Patient Instructions Indication:Eye swelling, right Start:27-Feb-2019 Instruction Type:Provider Instructions for Treatment How to access health informa tion online Indication:Current non-smoker Start:01-Sep-2018 Instruction Type:Patient Education How to access health informa tion online - Detail Indication:Current non-smoker Start:01-Sep-2018 Instruction Type:Patient Education Patient Instructions Indication:Current non-smoker Start:01-Sep-2018 Instruction Type:Provider Instructions for Treatment How to access health informa tion online - Detail Indication:BMI 34.0-34.9,adult Start:16-Aug-2018 Instruction Type:Patient Education How to access health informa tion online Indication:BMI 34.0-34.9,adult Start:16-Aug-2018 Instruction Type:Patient Education Patient Instructions Indication:BMI 34.0-34.9,adult Start:16-Aug-2018 Instruction Type:Provider Instructions for Treatment How to access health informa tion online Indication:Bronchitis due to tobacco use Start:25-Nov-2016 Instruction Type:Patient Education How to access health informa tion online - Detail Indication:Bronchitis due to tobacco use Start:25-Nov-2016 Instruction Type:Patient Education Patient Instructions Indication:Bronchitis due to tobacco use Start:25-Nov-2016 Instruction Type:Provider Instructions for Treatment How to access health informa tion online Indication:Cough Start:11-Nov-2016 Instruction Type:Patient Education How to access health informa tion online - Detail Indication:Cough Start:11-Nov-2016 Instruction Type:Patient Education Patient Instructions Indication:Cough Start:11-Nov-2016 Instruction Type:Provider Instructions for Treatment How to access health informa tion online Indication:Bronchitis Start:24-Sep-2016 Instruction Type:Patient Education How to access health informa tion online - Detail Indication:Bronchitis Start:24-Sep-2016 Instruction Type:Patient Education Patient Instructions Indication:Bronchitis Start:24-Sep-2016 Instruction Type:Provider Instructions for Treatment How to access health informa tion online Indication:Chest congestion Start:17-Sep-2016 Instruction Type:Patient Education How to access health informa tion online - Detail Indication:Chest congestion Start:17-Sep-2016 Instruction Type:Patient Education Patient Instructions Indication:Chest congestion Start:17-Sep-2016 Instruction Type:Provider Instructions for Treatment How to access health informa tion online Indication:Current non-smoker Start:29-Jul-2016 Instruction Type:Patient Education How to access health informa tion online - Detail Indication:Current non-smoker Start:29-Jul-2016 Instruction Type:Patient Education Patient Instructions Indication:Current non-smoker Start:29-Jul-2016 Instruction Type:Provider Instructions for Treatment Patient Instructions Indication:Cellulitis Start:09-Aug-2015 Instruction Type:Provider Instructions for Treatment Patient Instructions Indication:Pharyngitis, acute Start:31-Jan-2013 Instruction Type:Provider Instructions for Treatment Patient Instructions Indication:Asthma, intrinsic, with status asthmaticus Start:28-Jun-2012 Instruction Type:Provider Instructions for Treatment Patient Instructions Indication:Hyperlipidemia Start:17-May-2012 Instruction Type:Provider Instructions for Treatment Name Dates Details How to access health informa tion online Indication:Non-smoker Start:16-May-2020 Instruction Type:Patient Education How to access health informa tion online - Detail Indication:Non-smoker Start:16-May-2020 Instruction Type:Patient Education Patient Instructions Indication:Non-smoker Start:16-May-2020 Instruction Type:Provider Instructions for Treatment How to access health informa tion online Indication:Non-smoker Start:10-May-2020 Instruction Type:Patient Education How to access health informa tion online - Detail Indication:Non-smoker Start:10-May-2020 Instruction Type:Patient Education Patient Instructions Indication:Non-smoker Start:10-May-2020 Instruction Type:Provider Instructions for Treatment How to access health informa tion online Indication:BMI 35.0-35.9,adult Start:04-Jan-2020 Instruction Type:Patient Education How to access health informa tion online - Detail Indication:BMI 35.0-35.9,adult Start:04-Jan-2020 Instruction Type:Patient Education Patient Instructions Indication:BMI 35.0-35.9,adult Start:04-Jan-2020 Instruction Type:Provider Instructions for Treatment How to access health informa tion online Indication:Current non-smoker Start:27-Feb-2019 Instruction Type:Patient Education How to access health informa tion online - Detail Indication:Current non-smoker Start:27-Feb-2019 Instruction Type:Patient Education Patient Instructions Indication:Eye swelling, right Start:27-Feb-2019 Instruction Type:Provider Instructions for Treatment How to access health informa tion online Indication:Current non-smoker Start:01-Sep-2018 Instruction Type:Patient Education How to access health informa tion online - Detail Indication:Current non-smoker Start:01-Sep-2018 Instruction Type:Patient Education Patient Instructions Indication:Current non-smoker Start:01-Sep-2018 Instruction Type:Provider Instructions for Treatment How to access health informa tion online - Detail Indication:BMI 34.0-34.9,adult Start:16-Aug-2018 Instruction Type:Patient Education How to access health informa tion online Indication:BMI 34.0-34.9,adult Start:16-Aug-2018 Instruction Type:Patient Education Patient Instructions Indication:BMI 34.0-34.9,adult Start:16-Aug-2018 Instruction Type:Provider Instructions for Treatment How to access health informa tion online Indication:Bronchitis due to tobacco use Start:25-Nov-2016 Instruction Type:Patient Education How to access health informa tion online - Detail Indication:Bronchitis due to tobacco use Start:25-Nov-2016 Instruction Type:Patient Education Patient Instructions Indication:Bronchitis due to tobacco use Start:25-Nov-2016 Instruction Type:Provider Instructions for Treatment How to access health informa tion online Indication:Cough Start:11-Nov-2016 Instruction Type:Patient Education How to access health informa tion online - Detail Indication:Cough Start:11-Nov-2016 Instruction Type:Patient Education Patient Instructions Indication:Cough Start:11-Nov-2016 Instruction Type:Provider Instructions for Treatment How to access health informa tion online Indication:Bronchitis Start:24-Sep-2016 Instruction Type:Patient Education How to access health informa tion online - Detail Indication:Bronchitis Start:24-Sep-2016 Instruction Type:Patient Education Patient Instructions Indication:Bronchitis Start:24-Sep-2016 Instruction Type:Provider Instructions for Treatment How to access health informa tion online Indication:Chest congestion Start:17-Sep-2016 Instruction Type:Patient Education How to access health informa tion online - Detail Indication:Chest congestion Start:17-Sep-2016 Instruction Type:Patient Education Patient Instructions Indication:Chest congestion Start:17-Sep-2016 Instruction Type:Provider Instructions for Treatment How to access health informa tion online Indication:Current non-smoker Start:29-Jul-2016 Instruction Type:Patient Education How to access health informa tion online - Detail Indication:Current non-smoker Start:29-Jul-2016 Instruction Type:Patient Education Patient Instructions Indication:Current non-smoker Start:29-Jul-2016 Instruction Type:Provider Instructions for Treatment Patient Instructions Indication:Cellulitis Start:09-Aug-2015 Instruction Type:Provider Instructions for Treatment Patient Instructions Indication:Pharyngitis, acute Start:31-Jan-2013 Instruction Type:Provider Instructions for Treatment Patient Instructions Indication:Asthma, intrinsic, with status asthmaticus Start:28-Jun-2012 Instruction Type:Provider Instructions for Treatment Patient Instructions Indication:Hyperlipidemia Start:17-May-2012 Instruction Type:Provider Instructions for Treatment Name Dates Details Patient Instructions Indication:Non-smoker Start:16-Sep-2020 Instruction Type:Provider Instructions for Treatment How to Access Health Informa tion Online using Patient Portal and [employer] Apps Indication:Non-smoker Start:16-Sep-2020 Instruction Type:Patient Education How to access health informa tion online Indication:Non-smoker Start:16-May-2020 Instruction Type:Patient Education How to access health informa tion online - Detail Indication:Non-smoker Start:16-May-2020 Instruction Type:Patient Education Patient Instructions Indication:Non-smoker Start:16-May-2020 Instruction Type:Provider Instructions for Treatment How to access health informa tion online Indication:Non-smoker Start:10-May-2020 Instruction Type:Patient Education How to access health informa tion online - Detail Indication:Non-smoker Start:10-May-2020 Instruction Type:Patient Education Patient Instructions Indication:Non-smoker Start:10-May-2020 Instruction Type:Provider Instructions for Treatment How to access health informa tion online Indication:BMI 35.0-35.9,adult Start:04-Jan-2020 Instruction Type:Patient Education How to access health informa tion online - Detail Indication:BMI 35.0-35.9,adult Start:04-Jan-2020 Instruction Type:Patient Education Patient Instructions Indication:BMI 35.0-35.9,adult Start:04-Jan-2020 Instruction Type:Provider Instructions for Treatment How to access health informa tion online Indication:Current non-smoker Start:27-Feb-2019 Instruction Type:Patient Education How to access health informa tion online - Detail Indication:Current non-smoker Start:27-Feb-2019 Instruction Type:Patient Education Patient Instructions Indication:Eye swelling, right Start:27-Feb-2019 Instruction Type:Provider Instructions for Treatment How to access health informa tion online Indication:Current non-smoker Start:01-Sep-2018 Instruction Type:Patient Education How to access health informa tion online - Detail Indication:Current non-smoker Start:01-Sep-2018 Instruction Type:Patient Education Patient Instructions Indication:Current non-smoker Start:01-Sep-2018 Instruction Type:Provider Instructions for Treatment How to access health informa tion online - Detail Indication:BMI 34.0-34.9,adult Start:16-Aug-2018 Instruction Type:Patient Education How to access health informa tion online Indication:BMI 34.0-34.9,adult Start:16-Aug-2018 Instruction Type:Patient Education Patient Instructions Indication:BMI 34.0-34.9,adult Start:16-Aug-2018 Instruction Type:Provider Instructions for Treatment How to access health informa tion online Indication:Bronchitis due to tobacco use Start:25-Nov-2016 Instruction Type:Patient Education How to access health informa tion online - Detail Indication:Bronchitis due to tobacco use Start:25-Nov-2016 Instruction Type:Patient Education Patient Instructions Indication:Bronchitis due to tobacco use Start:25-Nov-2016 Instruction Type:Provider Instructions for Treatment How to access health informa tion online Indication:Cough Start:11-Nov-2016 Instruction Type:Patient Education How to access health informa tion online - Detail Indication:Cough Start:11-Nov-2016 Instruction Type:Patient Education Patient Instructions Indication:Cough Start:11-Nov-2016 Instruction Type:Provider Instructions for Treatment How to access health informa tion online Indication:Bronchitis Start:24-Sep-2016 Instruction Type:Patient Education How to access health informa tion online - Detail Indication:Bronchitis Start:24-Sep-2016 Instruction Type:Patient Education Patient Instructions Indication:Bronchitis Start:24-Sep-2016 Instruction Type:Provider Instructions for Treatment How to access health informa tion online Indication:Chest congestion Start:17-Sep-2016 Instruction Type:Patient Education How to access health informa tion online - Detail Indication:Chest congestion Start:17-Sep-2016 Instruction Type:Patient Education Patient Instructions Indication:Chest congestion Start:17-Sep-2016 Instruction Type:Provider Instructions for Treatment How to access health informa tion online Indication:Current non-smoker Start:29-Jul-2016 Instruction Type:Patient Education How to access health informa tion online - Detail Indication:Current non-smoker Start:29-Jul-2016 Instruction Type:Patient Education Patient Instructions Indication:Current non-smoker Start:29-Jul-2016 Instruction Type:Provider Instructions for Treatment Patient Instructions Indication:Cellulitis Start:09-Aug-2015 Instruction Type:Provider Instructions for Treatment Patient Instructions Indication:Pharyngitis, acute Start:31-Jan-2013 Instruction Type:Provider Instructions for Treatment Patient Instructions Indication:Asthma, intrinsic, with status asthmaticus Start:28-Jun-2012 Instruction Type:Provider Instructions for Treatment Patient Instructions Indication:Hyperlipidemia Start:17-May-2012 Instruction Type:Provider Instructions for Treatment Name Dates Details obesity counseling Indication:Obstructive sleep apnea, adult Start:01-Oct-2020 Instruction Type:Provider Instructions for Treatment cardiovascular counseling Indication:Atrial fibrillation Start:01-Oct-2020 Instruction Type:Provider Instructions for Treatment How to Access Health Informa tion Online using Patient Portal and [employer] Indication:Non-smoker Start:01-Oct-2020 Instruction Type:Patient Education Patient Instructions Indication:Non-smoker Start:01-Oct-2020 Instruction Type:Provider Instructions for Treatment Patient Instructions Indication:Non-smoker Start:16-Sep-2020 Instruction Type:Provider Instructions for Treatment How to Access Health Informa tion Online using Patient Portal and [employer] Indication:Non-smoker Start:16-Sep-2020 Instruction Type:Patient Education How to access health informa tion online Indication:Non-smoker Start:16-May-2020 Instruction Type:Patient Education How to access health informa tion online - Detail Indication:Non-smoker Start:16-May-2020 Instruction Type:Patient Education Patient Instructions Indication:Non-smoker Start:16-May-2020 Instruction Type:Provider Instructions for Treatment How to access health informa tion online Indication:Non-smoker Start:10-May-2020 Instruction Type:Patient Education How to access health informa tion online - Detail Indication:Non-smoker Start:10-May-2020 Instruction Type:Patient Education Patient Instructions Indication:Non-smoker Start:10-May-2020 Instruction Type:Provider Instructions for Treatment How to access health informa tion online Indication:BMI 35.0-35.9,adult Start:04-Jan-2020 Instruction Type:Patient Education How to access health informa tion online - Detail Indication:BMI 35.0-35.9,adult Start:04-Jan-2020 Instruction Type:Patient Education Patient Instructions Indication:BMI 35.0-35.9,adult Start:04-Jan-2020 Instruction Type:Provider Instructions for Treatment How to access health informa tion online Indication:Current non-smoker Start:27-Feb-2019 Instruction Type:Patient Education How to access health informa tion online - Detail Indication:Current non-smoker Start:27-Feb-2019 Instruction Type:Patient Education Patient Instructions Indication:Eye swelling, right Start:27-Feb-2019 Instruction Type:Provider Instructions for Treatment How to access health informa tion online Indication:Current non-smoker Start:01-Sep-2018 Instruction Type:Patient Education How to access health informa tion online - Detail Indication:Current non-smoker Start:01-Sep-2018 Instruction Type:Patient Education Patient Instructions Indication:Current non-smoker Start:01-Sep-2018 Instruction Type:Provider Instructions for Treatment How to access health informa tion online - Detail Indication:BMI 34.0-34.9,adult Start:16-Aug-2018 Instruction Type:Patient Education How to access health informa tion online Indication:BMI 34.0-34.9,adult Start:16-Aug-2018 Instruction Type:Patient Education Patient Instructions Indication:BMI 34.0-34.9,adult Start:16-Aug-2018 Instruction Type:Provider Instructions for Treatment How to access health informa tion online Indication:Bronchitis due to tobacco use Start:25-Nov-2016 Instruction Type:Patient Education How to access health informa tion online - Detail Indication:Bronchitis due to tobacco use Start:25-Nov-2016 Instruction Type:Patient Education Patient Instructions Indication:Bronchitis due to tobacco use Start:25-Nov-2016 Instruction Type:Provider Instructions for Treatment How to access health informa tion online Indication:Cough Start:11-Nov-2016 Instruction Type:Patient Education How to access health informa tion online - Detail Indication:Cough Start:11-Nov-2016 Instruction Type:Patient Education Patient Instructions Indication:Cough Start:11-Nov-2016 Instruction Type:Provider Instructions for Treatment How to access health informa tion online Indication:Bronchitis Start:24-Sep-2016 Instruction Type:Patient Education How to access health informa tion online - Detail Indication:Bronchitis Start:24-Sep-2016 Instruction Type:Patient Education Patient Instructions Indication:Bronchitis Start:24-Sep-2016 Instruction Type:Provider Instructions for Treatment How to access health informa tion online Indication:Chest congestion Start:17-Sep-2016 Instruction Type:Patient Education How to access health informa tion online - Detail Indication:Chest congestion Start:17-Sep-2016 Instruction Type:Patient Education Patient Instructions Indication:Chest congestion Start:17-Sep-2016 Instruction Type:Provider Instructions for Treatment How to access health informa tion online Indication:Current non-smoker Start:29-Jul-2016 Instruction Type:Patient Education How to access health informa tion online - Detail Indication:Current non-smoker Start:29-Jul-2016 Instruction Type:Patient Education Patient Instructions Indication:Current non-smoker Start:29-Jul-2016 Instruction Type:Provider Instructions for Treatment Patient Instructions Indication:Cellulitis Start:09-Aug-2015 Instruction Type:Provider Instructions for Treatment Patient Instructions Indication:Pharyngitis, acute Start:31-Jan-2013 Instruction Type:Provider Instructions for Treatment Patient Instructions Indication:Asthma, intrinsic, with status asthmaticus Start:28-Jun-2012 Instruction Type:Provider Instructions for Treatment Patient Instructions Indication:Hyperlipidemia Start:17-May-2012 Instruction Type:Provider Instructions for Treatment Name Dates Details How to access health informa tion online Indication:Current non-smoker Start:27-Feb-2019 Instruction Type:Patient Education How to access health informa tion online - Detail Indication:Current non-smoker Start:27-Feb-2019 Instruction Type:Patient Education Patient Instructions Indication:Eye swelling, right Start:27-Feb-2019 Instruction Type:Provider Instructions for Treatment How to access health informa tion online Indication:Current non-smoker Start:01-Sep-2018 Instruction Type:Patient Education How to access health informa tion online - Detail Indication:Current non-smoker Start:01-Sep-2018 Instruction Type:Patient Education Patient Instructions Indication:Current non-smoker Start:01-Sep-2018 Instruction Type:Provider Instructions for Treatment How to access health informa tion online - Detail Indication:BMI 34.0-34.9,adult Start:16-Aug-2018 Instruction Type:Patient Education How to access health informa tion online Indication:BMI 34.0-34.9,adult Start:16-Aug-2018 Instruction Type:Patient Education Patient Instructions Indication:BMI 34.0-34.9,adult Start:16-Aug-2018 Instruction Type:Provider Instructions for Treatment How to access health informa tion online Indication:Bronchitis due to tobacco use Start:25-Nov-2016 Instruction Type:Patient Education How to access health informa tion online - Detail Indication:Bronchitis due to tobacco use Start:25-Nov-2016 Instruction Type:Patient Education Patient Instructions Indication:Bronchitis due to tobacco use Start:25-Nov-2016 Instruction Type:Provider Instructions for Treatment How to access health informa tion online Indication:Cough Start:11-Nov-2016 Instruction Type:Patient Education How to access health informa tion online - Detail Indication:Cough Start:11-Nov-2016 Instruction Type:Patient Education Patient Instructions Indication:Cough Start:11-Nov-2016 Instruction Type:Provider Instructions for Treatment How to access health informa tion online Indication:Bronchitis Start:24-Sep-2016 Instruction Type:Patient Education How to access health informa tion online - Detail Indication:Bronchitis Start:24-Sep-2016 Instruction Type:Patient Education Patient Instructions Indication:Bronchitis Start:24-Sep-2016 Instruction Type:Provider Instructions for Treatment How to access health informa tion online Indication:Chest congestion Start:17-Sep-2016 Instruction Type:Patient Education How to access health informa tion online - Detail Indication:Chest congestion Start:17-Sep-2016 Instruction Type:Patient Education Patient Instructions Indication:Chest congestion Start:17-Sep-2016 Instruction Type:Provider Instructions for Treatment How to access health informa tion online Indication:Current non-smoker Start:29-Jul-2016 Instruction Type:Patient Education How to access health informa tion online - Detail Indication:Current non-smoker Start:29-Jul-2016 Instruction Type:Patient Education Patient Instructions Indication:Current non-smoker Start:29-Jul-2016 Instruction Type:Provider Instructions for Treatment Patient Instructions Indication:Cellulitis Start:09-Aug-2015 Instruction Type:Provider Instructions for Treatment Patient Instructions Indication:Pharyngitis, acute Start:31-Jan-2013 Instruction Type:Provider Instructions for Treatment Patient Instructions Indication:Asthma, intrinsic, with status asthmaticus Start:28-Jun-2012 Instruction Type:Provider Instructions for Treatment Patient Instructions Indication:Hyperlipidemia Start:17-May-2012 Instruction Type:Provider Instructions for Treatment Reason for Referral Specialty Diagnoses / Procedures Referred By Aixa vázquez Referred To Contact Diagnoses Encounter for screening for malignant neoplasm of breast, unspecified screening modality Procedures Mammography Screening Stepan Bilateral Ophelai Fonseca MD [address] [address] Phone: [phone] Referral ID Status Reason Start Date Expiration Date Visits Requested Visits Authorized [id number] Authorized Patient Preference 3 09/01/2024 1 1 Additional Source Comments INFORMATION SOURCE (unrecogn ized section and content) DATE CREATED AUTHOR AUTHOR'S ORGANIZ ATION 03/11/2018 [facility] DATE CREATED AUTHOR AUTHOR'S ORGANIZ ATION 03/16/2018 [facility] DATE CREATED AUTHOR AUTHOR'S ORGANIZ ATION 10/26/2022 [facility] DATE CREATED AUTHOR AUTHOR'S ORGANIZ ATION 09/05/2023 [facility] Reason for Visit (unrecogniz ed section and content) Care Teams (unrecognized sec tion and content) FOR RECORDS PERTAINING TO PATIENTS WHO ARE OR HAVE BEEN ENROLLED IN A CHEMICAL DEPENDENCY/SUBSTANCEABUSE PROGRAM, SOME INFORMATION MAY BE OMITTED. This clinical summary was aggregated from multiple sources. Caution should be exercised in using it in the provision of clinical care. This summary normalizes information from multiple sources, and as a consequence, information in this document may materially change the coding, format and clinical context of patient data. In addition, data may be omitted in some cases. CLINICAL DECISIONS SHOULD BE BASED ON THE PRIMARY CLINICAL RECORDS. [facility] [employer] [facility]. provides no warranty or guarantee of the accuracy or completeness of information in this document.
== END | disposition home or self-care (01) ==
LOC: SL 20:19
PROVIDERS: PCP Family Medicine; Visit Provider Internal Medicine Critical Care Medicine
DX: G47.33 Obstructive sleep apnea (adult) (pediatric) (principal)
CPT/HCPCS: 95811

== ENCOUNTER → 2023-10-12 | Outpatient (CLI) | payer MEDICARE, SELFPAY ==
--- OUTSIDE RECORDS SUMMARY | 2023-10-12 11:03 | XMS RPT_ITS | CCD ---
Author Name Unknown Address [address] [place] [address] Organization [facility] Care Team Providers Care Ham Pumper Name Role Phone ALEJANDRO SONI Unavailable Unavailable STANLEY MARCOS Unavailable Unavailable ALEJANDRO SONI Unavailable Unavailable STANLEY MARCOS Unavailable Unavailable JOSE MARTE Unavailable Unavailable KEVIN MOMIN Unavailable Unavailable Lydia Marte Unavailable Alejandro Rai Unavailable [facility] Unavailable [phone] Julio Gordon Unavailable Rachna Lyon Unavailable Unavailable Dena Hurd Unavailable Unavailable Unavailable Unavailable Lydia Marte Unavailable Alejandro Rai Unavailable [facility] Unavailable Julio Gordon Unavailable Slarb, Dena Unavailable Unavailable Rachna De La Fuente Unavailable Unavailable Rachna Lyon Unavailable Unavailable Unavailable Unavailable Laura Joe Unavailable Unavailable JOSE Romo Unavailable Unavailable Rachna Lyon Unavailable Unavailable Erika Dennis Unavailable Unavailable Unavailable Clau Mcknight Unavailable Unavailable [facility], [facility] Unavailable Unavailable Unavailable Lexi Wilburn Unavailable Unavailable Lydia Marte DO Unavailable Alejandro Rai Unavailable [facility], [facility] Unavailable Physical Therapy, [facility] Unavailable [phone] Dr. Julio Gordon Unavailable Cosmo NURSE INTERN, Lexi Unavailable Unavailable Roxanna GRAIN OILSEED OR PASTURE GROWER, Clau Unavailable Unavailable Vickey NURSE INTERN, eDna Unavailable Unavailable Sonali RN, Rachna Unavailable Unavailable Unavailable Unavailable Friend, Dr. Kaplan Unavailable [phone] Fadi NURSE INTERN, David Unavailable Unavailable Demetrius STARKSN, JOSE Unavailable Unavailable Leanna GERARD, Shoshana Unavailable Unavailab Lydia Mcwilliams DO Unavailable Ben DENTAL OFFICE RECEPTIONIST, Thania Unavailable Nida Amos Unavailable Lydia Marte [...] Drug Class(es) Dates Sig (Normalized) Sig (Original) [id number] 200 actuat albuterol 0.09 mg/actuat metered dose [...] 162.6 cm Ophelia Fonseca MD Work Phone: [facility] 09-02-2023 14:40-0500 Body mass index (BMI) [Ratio] 39.48 kg/m2 Ophelia Fonseca MD Work Phone: [facility] 09-02-2023 14:40-0500 Body temperature 98.1 [degF] Ophelia Fonseca MD Work Phone: [facility] 09-02-2023 14:40-0500 Body weight 104.33 kg Ophelia Fonseca MD Work Phone: [facility] 09-02-2023 14:40-0500 Diastolic blood pressure 82 mm[Hg] Ophelia Fonseca MD Work Phone: [facility] 09-02-2023 14:40-0500 Heart rate 74 /min Ophelia Fonseca MD Work Phone: [facility] 09-02-2023 14:40-0500 Respiratory rate 16 /min Ophelia Fonseca MD Work Phone: [facility] 09-02-2023 14:40-0500 SaO2% (BldA) [Mass fraction] 92 % Ophelia Fonseca MD Work Phone: [facility] 09-02-2023 14:40-0500 Systolic blood pressure 136 mm[Hg] Ophelia Fonseca MD Work Phone: [facility] 10-26-2022 09:21-0500 Body height 163.83 cm Dena [...] Provider Facility Start: 09-03-2023 ambulatory OPHELIA RAMESH [facility] Start: 09-02-2023 End: 09-02-2023 ambulatory OPHELIA SANTANA [facility] Start: 09-02-2023 End: 09-02-2023 Office outpatient new 45 minutes Ophelia Fonseca MD Work Phone: [facility] Procedures Date Procedure Procedure Detail Performing Clinician Start: 07-10-2023 End: 07-10-2023 6 Minute Walk Test Procedure Note: See Note; NOTES: [facility] Pulmonary Services/Neurology [address] [place] [address] MR#: [id number] Acct: [id number] Name: ADRIANA DILL Rep #: [id number] : 1955 68 From: Michael Segal DO Referring Dr: Ernesto Webster MD Status: REG CLI Location: PSN Date: Sex: F C PSN 6 Minute Walk Test 6 Minute Walk Test 6 Minute Walk Test: 6 Minute Walk Test PSN:6-Minute Walk Test Start: 07/09/23 12:47 Freq: Status: Active Protocol: RESP.6MINW Document 07/09/23 12:48 AEH (Rec: 07/09/23 12:55 AEH [id number]) 6 Minute Walk Test Date Performed 07/09/23 [...] CC: Date Dictated: 07/10/23739 Date Transcribed: 07/10/23739 Political Advisor: Dr. Michael Segal DO Signed Lydia Marte DO Work Phone: Start: 07-07-2023 End: 07-07-2023 Pulmonary Function Test Procedure Note: See Note; NOTES: [facility] Pulmonary Services/Neurology [facility] [place] [address] MR#: [id number] Acct: [id number] Name: ADRIANA DILL Rep #: [id number] : 1955 68 From: Michael Segal DO Referring Dr: Ernesto Webster MD Status: REG I Location: [facility] Date: 07/06/23 Sex: F C INTRODUCTION: [...] DO Date Dictated: 07/07/23800 Date Transcribed: 07/07/23800 Political Advisor: BLAIRE Signed Lydia Marte DO Work Phone: Start: 06-21-2023 End: 06-21-2023 Pulmonary Visit Report Procedure Note: See Note; NOTES: [facility] [place] [address] [place] [address] OFFICE VISIT Date of Service: 06/21/23 MR#: [id number] Acct: [id number] Name: ADRIANA DILL Rep #: [id number] : 1955 Provider: Dr. Ernesto Webster MD Age/Sex: 68/F [place] [facility] Status: Signed Assessment and Plan Assessment [...] 1 Y FU Chief Complaint: Increased SOB Boring Machine Feeder Required: No DME Vendor: Kevin Accompanied by: [...] QDAY #90 caps 04/12/23 [Rx Confirmed 06/21/23] [facility] Medical History Atherosclerotic heart disease of [place] coronary artery without angina pectoris Bicuspid aortic [...] History Brother CAD (coronary artery disease) from [place] age 52 Father Dementia Mother Cancer Social [...] Visit Report Procedure Note: See Note; NOTES: [facility] [address] [place] [address]. [address] [place] [address] OFFICE VISIT Date of Service: 06/17/23 MR#: [id number] Acct: [id number] Name: ADRIANA DILL Rep #: [id number] : 1955 Provider: STEVEN chatterjee Age/Sex: 68/F [place] [facility] Status: Signed [facility] History of Present Illness Details: This [...] QDAY #90 caps 04/12/23 [Rx Confirmed 06/17/23] [facility] Medical History (Reviewed 06/17/23 @ 14:17 by Rachna De La Fuente ELIGIBILITY SERVICES REPRESENTATIVE, ELIGIBILITY SERVICES REPRESENTATIVE-C) Atherosclerotic heart disease of [place] coronary artery without angina pectoris Bicuspid aortic valve Bipolar disorder CAD (coronary artery disease) Essential hypertension GERD (gastroesophageal reflux disease) Hyperlipidemia Long-term use of high-risk medication Non-rheumatic aortic stenosis Non-ST elevation (NSTEMI) myocardial infarction ( 08/21/11) Obstructive sleep apnea Palpitation Persistent atrial fibrillation Secondary pulmonary arterial hypertension Surgical History (Reviewed 06/17/23 @ 14:17 by Rachna De La Fuente ELIGIBILITY SERVICES REPRESENTATIVE, ELIGIBILITY SERVICES REPRESENTATIVE-C) H/O discectomy History of maze procedure ( 10/22/04) history of pulmonary vein isolation ( 10/11/06) History of right and left heart catheterization ( 03/05/17) Family History (Reviewed 06/17/23 @ 14:17 by Rachna De La Fuente NP, ELIGIBILITY SERVICES REPRESENTATIVE-C) Brother CAD (coronary artery disease) from [place] age 52 Father Dementia Mother Cancer Social History (Reviewed 06/17/23 @ 14:17 by Rachna De La Fuente ELIGIBILITY SERVICES REPRESENTATIVE, ELIGIBILITY SERVICES REPRESENTATIVE-C) Smoking Status: Former smoker how long ago [...] maze procedure: Status: Resolved Comment: 10/22/2004 at [facility] Plan: Patient underwent Maze procedure in [...] updated, as necessary. Follow Up: 6 Months (ELIGIBILITY SERVICES REPRESENTATIVE/PA) Coding Level of Care Code Off vis,est,level [...] Echo Complete Procedure Note: See Note; NOTES: [facility] Cardiovascular Services [address] [place] [address] Echo Complete 12/08/22 0809 MR#: [id number] Acct: [id number] Name: ADRIANA DILL Rep #: [id number] : 1955 67 From: Elvin Antonio MD Attending Dr: Dr. Ralph Mg MD Status: RE G [facility] Ordering Dr: Ralph Mg MD Date: 12/08/22 Location: [facility] Sex: F C Admitted: Reason [...] Date Dictated: 12/08/22 0809 Date Transcribed: 12/09/22899 Political Advisor: Signed Lydia Marte DO Work Phone: Start: 11-30-2022 End: 11-30-2022 Cardiology Visit Report Procedure Note: See Note; NOTES: [facility] [address] [place] [address] OFFICE VISIT Date of Service: 11/30/22 MR#: [id number] Acct: [id number] Name: ADRIANA DILL Rep #: [id number] : 1955 Provider: Dr. Ralph horowitz MD Age/Sex: 67/F [place] [facility] Status: Signed HPI [facility] History of Present Illness Details: This is [...] air Intake Visit Reasons: 1 Y FU Boring Machine Feeder Required: No Accompanied by: Self Allergies No [...] PFSH Medical History Atherosclerotic heart disease of [place] coronary artery without angina pectoris Bicuspid aortic [...] History Brother CAD (coronary artery disease) from [place] age 52 Father Dementia Mother Cancer Social [...] maze procedure: Status: Resolved Comment: 10/22/2004 at [facility] Plan: She has undergone previous pulmonary [...] DO Lydia Marte DO Work Phone: Start: 07-06-2022 End: 07-06-2022 Pulmonary Visit Report Procedure Note: See Note; NOTES: [facility] [place] [address] [place] [address] OFFICE VISIT Date of Service: 07/06/22 MR#: [id number] Acct: [id number] Name: ADRIANA DILL Rep #: [id number] : 1955 Provider: Dr. Ernesto Webster MD Age/Sex: 67/F Location: [facility] Status: Signed Assessment and Plan Assessment and [...] BID #180 tabs 06/02/22 [Rx Confirmed 07/06/22] [facility] Medical History (Reviewed 01/07/22 @ 07:59 by Yuni Banks ELIGIBILITY SERVICES REPRESENTATIVE, ELIGIBILITY SERVICES REPRESENTATIVE-C) Bicuspid aortic valve Bipolar disorder CAD (coronary [...] History Brother CAD (coronary artery disease) from [place] age 52 Father Dementia Mother Cancer Social [...] Route Admin Location Lot Number Expiration Date [facility] Manufactu rer 60 mcg IM Left Deltoid [id number] 01/08/23 30128-909-47 [employer] VIS Given Date VIS Provided [...] without Cont Procedure Note: See Note; NOTES: [facility] Imaging Services [address] [place] [address] Abdomen/Pelvis without Cont MR#: [id number] Acct: [id number] Name: ADRIANA DILL Rep #: [id number] : 1955 F 67 From: Daryn jennings MD PCP: Dr. Lydia Marte, DO Status: REG CLI Study: Abdomen/Pelvis without Cont Date of Exam: 04/21 01/09 Exam# [id number] Ordering Dr: Nida Amos MD STUDY: CT [...] Nida Amos MD; Dr. Lydia Marte DO Political Advisor: Signed Nida Amos Work Phone: Start: 04-15-2022 End: 04-16-2022 Kidney and Bladder Comments: See Note; NOTES: [facility] Imaging Services [address] [place] [address] Kidney and Bladder MR#: [id number] Acct: [id number] Name: ADRIANA DILL Rep #: [id number] : 1955 F 67 From: Roselia Addison PCP: Dr. Lydia Marte DO Status: REG CLI Study: Kidney and Bladder Date of Exam: 04/15/22 Exam# [id number] Ordering Dr: Thania Contreras ELIGIBILITY SERVICES REPRESENTATIVE-C STUDY: RENAL ULTRASOUND - COMPLETE REASON FOR [...] CC: STEVEN Contreras; Dr. Lydia Marte DO Political Advisor: Signed Lydia Marte DO Work Phone: Start: 01-07-2022 End: 01-07-2022 Pulmonary Visit Report Comments: See Note; NOTES: [facility] [place] [address] [place] [address] OFFICE VISIT Date of Service: 01/07/22 MR#: [id number] Acct: [id number] Name: ADRIANA DILL Rep #: [id number] : 1955 Provider: STEVEN Banks Age/Sex: 66/F Location[place] [facility] Status: Signed Assessment and Plan Assessment and Plan (1) Obstructive sleep apnea: Status: Chronic Comment: BiPAP 16/12 centimeters of water with residual AHI of 6.5 Thony Banks ELIGIBILITY SERVICES REPRESENTATIVE, ELIGIBILITY SERVICES REPRESENTATIVE-C: Patient is using and benefiting from Pap therapy. No indication for titration study at this time. Continue to encourage weight loss. Contact the office for any new or worsening symptoms in the meantime. Follow-up in [address] Webster. (2) Secondary pulmonary arterial hypertension: Status: Chronic Thony - Yuni Banks ELIGIBILITY SERVICES REPRESENTATIVE, ELIGIBILITY SERVICES REPRESENTATIVE-C: Shortness of breath is stable. Most recent walking oximetry ruled out exertional hypoxia. The patient continues to check her oxygen saturation at home and assures me that it is never less than 94%. No additional testing at this time. Follow-up with Dr. Webster in 6 months. (3) BMI 33.0-33.9,adult: Status: Chronic Thony Banks NP, ELIGIBILITY SERVICES REPRESENTATIVE-C: Continue to encourage weight loss. (4) Bipolar disorder: Status: Chronic Qualifiers: Active/Remission status: remission status unspecified Qualified Code(s): F31.9 - Bipolar disorder, unspecified Plan - Yuni Banks ELIGIBILITY SERVICES REPRESENTATIVE, ELIGIBILITY SERVICES REPRESENTATIVE-C: Complicates exam, plan, care and prognosis. (5) Persistent atrial fibrillation: Status: Chronic Plan - Yuni Banks ELIGIBILITY SERVICES REPRESENTATIVE, ELIGIBILITY SERVICES REPRESENTATIVE-C: Complicates exam, plan, care and prognosis. Plan [...] air Intake Visit Reasons: 6 M FU [facility] Vendor: [employer] Allergies No Known Allergies Allergy (Verified 01/07/22 [...] BID #180 tab 12/10/21 [Rx Confirmed 01/07/22] [facility] Medical History (Reviewed 01/07/22 @ 07:59 by Yuni Banks ELIGIBILITY SERVICES REPRESENTATIVE, ELIGIBILITY SERVICES REPRESENTATIVE-C) Bicuspid aortic valve Bipolar disorder CAD (coronary artery disease) Essential hypertension GERD (gastroesophageal reflux disease) Hyperlipidemia Long-term use of high-risk medication Non-rheumatic aortic stenosis Non-ST elevation (NSTEMI) myocardial infarction ( 08/21/11) Obstructive sleep apnea Palpitation Persistent atrial fibrillation Secondary pulmonary arterial hypertension Surgical History (Reviewed 01/07/22 @ 07:59 by Yuni Banks ELIGIBILITY SERVICES REPRESENTATIVE, ELIGIBILITY SERVICES REPRESENTATIVE-C) H/O discectomy History of maze procedure ( 10/22/04) history of pulmonary vein isolation ( 10/11/06) History of right and left heart catheterization ( 03/05/17) Family History (Reviewed 01/07/22 @ 07:59 by Yuni Banks ELIGIBILITY SERVICES REPRESENTATIVE, ELIGIBILITY SERVICES REPRESENTATIVE-C) Brother CAD (coronary artery disease) from [place] age 52 Father Dementia Mother Cancer Social History (Reviewed 01/07/22 @ 07:59 by Yuni Banks ELIGIBILITY SERVICES REPRESENTATIVE, ELIGIBILITY SERVICES REPRESENTATIVE-C) Smoking Status: Former smoker how long ago [...] 0816 <Electronically signed by Yuni Banks NP ELIGIBILITY SERVICES REPRESENTATIVE-C> Date Yuni Banks NP ELIGIBILITY SERVICES REPRESENTATIVE-C Cosigner Signature: Date (if applicable) CC: Dr. Lydia Marte, DO Lydia Marte DO Work Phone: Start: 11-12-2021 End: 11-12-2021 Echo Complete Comments: See Note; NOTES: [facility] Cardiovascular Services [address] [place] [address]. [place] [address] Echo Complete 11/12/21 1003 MR#: [id number] Acct: [id number] Name: ADRIANA DILL Rep #: [id number] : 1955 66 From: Ralph Mg MD Attending Dr: CRESCENCIO CastellanosC Status: JOSE ALFREDO NAZARIO Ordering Dr: Rachna De La Fuente NP ELIGIBILITY SERVICES REPRESENTATIVE-C Date: 11/12/21 Location: [facility] Sex: F C Admitted: Reason [...] Fuente Referring Physician: Lydia Marte Performed By: pOal Martinez RDCS, RVT 11/12/211918 Date Ralph Mg MD CC: STEVEN De La Fuente; Dr. Lydia Marte, Date Dictated: 11/12/21 1003 Date Transcribed: 11/12/211918 Political Advisor: Signed Lydia aMrte DO Work Phone: Start: 10-08-2021 End: 10-08-2021 Cardiology Visit Report Comments: See Note; NOTES: [facility] [address] [place] [address] OFFICE VISIT Date of Service: 10/08/21 MR#: [id number] Acct: [id number] Name: ADRIANA DILL Rep #: [id number] : 1955 Provider: STEVEN Abraham rts Age/Sex: 66/F [place] [facility] Status: Signed HPI HPI History of Present [...] 95 Intake Visit Reasons: 6 M FU Boring Machine Feeder Required: No Accompanied by: None Is patient [...] QDAY #90 tab 08/06/21 [Rx Confirmed 10/08/21] [facility] Medical History (Reviewed 10/08/21 @ 10:00 by Rachna De La Fuente NP, ELIGIBILITY SERVICES REPRESENTATIVE-C) Bicuspid aortic valve Bipolar disorder CAD (coronary artery disease) Essential hypertension GERD (gastroesophageal reflux disease) Hyperlipidemia Long-term use of high-risk medication Non-rheumatic aortic stenosis Non-ST elevation (NSTEMI) myocardial infarction ( 08/21/11) Obstructive sleep apnea Palpitation Persistent atrial fibrillation Secondary pulmonary arterial hypertension Surgical History (Reviewed 10/08/21 @ 10:00 by Rachna De La Fuente ELIGIBILITY SERVICES REPRESENTATIVE, ELIGIBILITY SERVICES REPRESENTATIVE-C) H/O discectomy History of maze procedure ( 10/22/04) history of pulmonary vein isolation ( 10/11/06) History of right and left heart catheterization ( 03/05/17) Family History (Reviewed 10/08/21 @ 10:00 by Rachna De La Fuente ELIGIBILITY SERVICES REPRESENTATIVE, ELIGIBILITY SERVICES REPRESENTATIVE-C) Brother CAD (coronary artery disease) from [place] age 52 Father Dementia Mother Cancer Social History (Reviewed 10/08/21 @ 10:00 by Rachna De La Fuente ELIGIBILITY SERVICES REPRESENTATIVE, ELIGIBILITY SERVICES REPRESENTATIVE-C) Smoking Status: Former smoker how long ago [...] Plan - Rachna De La Fuente NP, ELIGIBILITY SERVICES REPRESENTATIVE-C: Patient has a history of coronary artery disease. She appears stable at this time. She denies any recent symptoms or events. She will continue her current medications, along with aggressive risk factor and lifestyle modifications. (2) Non-rheumatic aortic stenosis: Status: Chronic Thony - Rachna De La Fuente NP, ELIGIBILITY SERVICES REPRESENTATIVE-C: Patient has a history of nonrheumatic aortic valve stenosis. Her most recent echocardiogram from 02/15/2020 demonstrated moderate aortic stenosis. We will reevaluate this with an echocardiogram. (3) Bicuspid aortic valve: Status: Chronic Orders: Orders: Echo Complete Today Thony - Rachna De La Fuente NP, ELIGIBILITY SERVICES REPRESENTATIVE-C: Patient has a history of bicuspid aortic valve. Her most recent echocardiogram from 02/15/2020 demonstrated associated aortic root dilatation. We will obtain an echocardiogram to evaluate her aortic valve/root. (4) Persistent atrial fibrillation: Status: Chronic Thony De La Fuente NP, ELIGIBILITY SERVICES REPRESENTATIVE-C: Patient has a history of persistent atrial fibrillation. She appears to be in a regular rhythm on exam today. She appears stable at this time, and denies any recent symptoms or events. She will continue metoprolol 100 mg twice daily, apixaban 5 mg twice daily, and verapamil 120 mg twice daily. (5) History of maze procedure: Status: Resolved Comment: 10/22/2004 at [facility] Thony De La Fuente NP, ELIGIBILITY SERVICES REPRESENTATIVE-C: Patient has a history of Maze procedure in 2004. She appears to be in a regular rhythm on exam today. She will continue with her current medical therapy. (6) Essential hypertension: Status: Chronic Thony De La Fuente NP, ELIGIBILITY SERVICES REPRESENTATIVE-C: Patient has a history of hypertension. Her blood pressure is well controlled at this time. She will continue with her current medications. (7) Hyperlipidemia: Status: Chronic Orders: Orders: Lipid Profile Today Liver Profile Today Thony De La Fuente NP, ELIGIBILITY SERVICES REPRESENTATIVE-C: Patient has a history of hyperlipidemia. She [...] prior to saving. Follow Up: 6 Months (ELIGIBILITY SERVICES REPRESENTATIVE/PA) 12 Months (PFM) Coding Level of Care [...] <Electronically signed by Rachna De La Fuente ELIGIBILITY SERVICES REPRESENTATIVE ELIGIBILITY SERVICES REPRESENTATIVE-C> Date Rachna De La Fuente ELIGIBILITY SERVICES REPRESENTATIVE ELIGIBILITY SERVICES REPRESENTATIVE-C 10/08/21 1446<Electronically signed by Ralph Mg MD> Cosigner Signature: Date (if applicable) Ralph Mg MD CC: Dr. Lydia Marte, DO Lydia Marte DO Work Phone: Start: 08-12-2021 End: 08-12-2021 6 Minute Walk Test Comments: See Note; NOTES: [facility] Pulmonary Services/Neurology [address] [place] [address] MR#: [id number] Acct: [id number] Name: ADRIANA DILL Rep #: [id number] : 1955 66 From: Ernesto Webster MD Referring Dr: Ernesto Webster MD Status: REG CLI Location: PSN Date: Sex: F C PSN 6 Minute Walk Test 6 Minute Walk Test 6 Minute Walk Test: 6 Minute Walk Test PSN:6-Minute Walk Test Start: 08/12/21 13:09 Freq: Status: Active Protocol: RESP.6MINW Document 08/12/21 13:09 SFENTON (Rec: 08/12/21 13:11 SFENTON [id number]) 6 Minute Walk Test Date Performed 08/12/21 Time Performed 12:30 Height 5 ft 3 in Weight: 97.976 kg Weight in Pounds 216.[address]: Ernesto Webster Assistive device [...] CC: Date Dictated: 08/12/211449 Date Transcribed: 08/12/211449 Political Advisor: Dr. Ernesto Webster MD Signed Lydia Marte DO Work Phone: Start: 07-08-2021 End: 07-16-2021 Pulmonary Visit Report Comments: See Note; NOTES: [facility] [place] [address] [place] [address] OFFICE VISIT Date of Service: 07/08/21 MR#: [id number] Acct: [id number] Name: ADRIANA DILL Rep #: [id number] : 1955 Provider: Dr. Ernesto Webster MD Age/Sex: 66/F Location: [facility] Status: Signed Assessment and Plan Assessment [...] air Intake Visit Reasons: 6 M FU [facility] Vendor: [employer] Allergies No Known Allergies Allergy (Verified 04/04/21 09:30) [facility] Medical History (Updated 07/08/21 @ 08:15 by [...] History Brother CAD (coronary artery disease) from [place] age 52 Father Dementia Mother Cancer Social [...] Manufactu rer 60 mcg IM Right arm [id number] 02/05/22 21184-965-62 [employer]. Coding Level of Care Code Off vis,est,level 3 Diagnoses Obstructive sleep apnea G47.33 Secondary pulmonary arterial hypertension I27.21 BMI 33.0-33.9,adult Z68.33 Persistent atrial fibrillation I48.1 07/08/21 0903 <Electronically signed by Ernesto Webster MD> Date Ernesto Webster MD Cosign Signature: Date (if applicable) CC: Dr. Lydia Marte, DO Lydia Marte DO Work Phone: Start: 04-04-2021 End: 04-04-2021 Cardiology Visit Report Comments: See Note; NOTES: [facility] [address] [place] [address]. [address] [place], [place] [address] OFFICE VISIT Date of Service: 04/04/21 MR#: [id number] Acct: [id number] Name: ADRIANA DILL Rep #: [id number] : 1955 Provider: Dr. Ralph horowitz MD Age/Sex: 66/F Location[place] [facility] Status: Signed HPI HPI History of Present [...] Auscultation Intake Visit Reasons: 6 M FU Boring Machine Feeder Required: No Accompanied by: None Is patient [...] 04/04/21] Ejection fraction %: 65 to 70 [facility] Medical History (Updated 04/04/21 @ 09:52 by [...] History Brother CAD (coronary artery disease) from [place] age 52 Father Dementia Mother Cancer Social [...] maze procedure: Status: Resolved Comment: 10/22/2004 at [facility] - Dr. Ralph Mg MD: She has [...] Pulmonary Visit Report Comments: See Note; NOTES: [facility] Medicine [address] [place] [address] OFFICE VISIT Date of Service: 12/31/20 MR#: [id number] Acct: [id number] Name: ADRIANA DILL Rep #: [id number] : 1955 Provider: STEVEN Banks Age/Sex: 65/F [place] [facility] [place] Status: Signed Assessment Plan Problems 1. Obstructive [...] air Intake Visit Reasons: 6 M FU [facility] [place]endor: [employer] Allergies No Known Allergies Allergy (Verified 12/31/20 [...] BID #60 tab 12/30/20 [Rx Confirmed 12/31/20] [facility] Medical History (Reviewed 12/31/20 @ 07:52 by Yuni Banks ELIGIBILITY SERVICES REPRESENTATIVE, ELIGIBILITY SERVICES REPRESENTATIVE-C) Essential hypertension (Chronic) Long-term use of high-risk medication (Chronic) Hyperlipidemia (Chronic) Bipolar disorder (Chronic) Non-rheumatic aortic stenosis (Chronic) Obstructive sleep apnea (Chronic) Secondary pulmonary arterial hypertension (Chronic) GERD (gastroesophageal reflux disease) (Chronic) Non-ST elevation (NSTEMI) myocardial infarction (Chronic 08/21/11) Palpitation (Acute) Persistent atrial fibrillation (Chronic) Dyslipidemia (Chronic) Bicuspid aortic valve (Chronic) Surgical History (Reviewed 12/31/20 @ 07:52 by Yuni Banks ELIGIBILITY SERVICES REPRESENTATIVE, ELIGIBILITY SERVICES REPRESENTATIVE-C) history of pulmonary vein isolation (Chronic 10/11/06) History of maze procedure (Resolved 10/22/04) H/O discectomy (Resolved) History of right and left heart catheterization (Resolved 03/05/17) Family History (Reviewed 12/31/20 @ 07:52 by Yuni Banks ELIGIBILITY SERVICES REPRESENTATIVE, ELIGIBILITY SERVICES REPRESENTATIVE-C) Brother CAD (coronary artery disease) from [place] age 52 Father Dementia Mother Cancer Social History (Updated 12/31/20 @ 08:07 by Yuni Banks ELIGIBILITY SERVICES REPRESENTATIVE, ELIGIBILITY SERVICES REPRESENTATIVE-C) Smoking Status: Former smoker how long ago [...] Banks NP, NP-C> Date Yuni Banks NP ELIGIBILITY SERVICES REPRESENTATIVE-C Cosigner Signature: Date (if applicable) CC: DO Lydia Martinez DO Work Phone: Start: 10-16-2020 End: 10-16-2020 Dexa Bone Density Study Comments: See Note; NOTES: [facility] Imaging Services [address] [place] [address] Dexa Bone Density Study MR#: [id number] Acct: [id number] Name: ADRIANA DILL Rep #: [id number] : 1955 F 65 From: aDryn jennings MD PCP: Dr. Lydia Marte DO Status: [facility] CL Study: Dexa Bone Density Study Date of Exam: 10/16/20 Exam# [id number] Ordering Dr: Lydia Marte DO STUDY: DUAL ENERGY X-RAY ABSORPTIOMETRY / DXA REASON FOR EXAM: Female, 65 years old. 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 Lydia Marte DO Political Advisor: Signed Lydia Marte DO Work Phone: Start: 10-16-2020 End: 10-16-2020 SCRN MAMM (CAD)W/STEPAN BILAT Comments: See Note; NOTES: [facility] Imaging Services [address] [place] [address] SCRN MAMM (CAD)W/STEPAN BILAT MR#: [id number] Acct: [id number] Name: ADRIANA DILL Rep #: [id number] : 1955 F 65 From: Daryn jennings MD PCP: Dr. Lydia Marte DO Status: REG CLI Study: SCRN MAMM (CAD)W/STEPAN BILAT Date of Exam: 09/21 04/09 Exam# [id number] Ordering Dr: Lydia Marte DO MAMMOGRAPHY - [...] delay biopsy of a clinically suspicious abnormality. [id number] Electronically Signed: Daryn Phelan MD at 11:53 EST , Service support , CC: Dr. Lydia Marte DO Political Advisor: Signed Lydia Mrate DO Work Phone: Start: 08-22-2020 End: 08-22-2020 Cardiology Visit Report Comments: See Note; NOTES: [facility] [place] [address] OFFICE VISIT Date of Service: 08/22/20 MR#: [id number] Acct: [id number] Name: FUENTESADRIANA E Rep #: [id number] : 1955 Provider: Dr. Ralph horowitz MD Age/Sex: 65/F [place] [facility] [place] Status: Signed HPI [facility] History of Present Illness Details: This is a 65-year-old white female who presents today for outpatient cardiovascular follow- up with a history of underlying CAD-nonangiographically significant, non-ST segment elevation [place], bicuspid aortic valve, dilated aortic root, atrial [...] status post pulmonary vein isolation at the [facility] in 2003 Mild coronary disease status post non ST elevation myocardial infarction status post catheterization at [facility] in August 2011 Bicuspid aortic valve with mildly dilated ascending aorta and mild aortic insufficiency by echocardiogram dated 07/2012. CT scan of the chest demonstrated no significant aortic dilatation according to the report. Left and right heart catheterization at [facility] by myself on 03/05/17 which demonstrated normal [...] Intake Visit Reasons: 6 M FU(AL PT) Boring Machine Feeder Required: No Accompanied by: Self Allergies No [...] QDAY #90 cap 06/24/20 [Rx Confirmed 08/22/20] [facility] Medical History Essential hypertension (Chronic) Long-term use [...] History Brother CAD (coronary artery disease) from [place] age 52 Father Dementia Mother Cancer Social [...] History of maze procedure Z98.890 10/22/2004 at [facility] Plan She is status post an [...] Pulmonary Visit Report Comments: See Note; NOTES: [facility] Pulmonary Medicine of [address] [place] [address] OFFICE VISIT Date of Service: 07/09/20 MR#: [id number] Acct: [id number] Name: ADRIANA DILL Rep #: [id number] : 1955 Provider: Dr. Ernesto Webster MD Age/Sex: 65/F [place] [facility] [place] Status: Signed Assessment Plan Problems 1. 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 out [...] QDAY #90 cap 06/24/20 [Rx Confirmed 07/09/20] [facility] Medical History Long-term use of high-risk [...] History Brother CAD (coronary artery disease) from [place] age 52 Father Dementia Mother Cancer Social [...] Minute Walk Test Comments: See Note; NOTES: [facility] Pulmonary Services/Neurology [address] [place] [address] MR#: [id number] Acct: [id number] Name: ADRIANA DILL Kenna Rep #: [id number] : 1955 65 From: Ernesto Webster MD Referring Dr: Yuni Banks NP ELIGIBILITY SERVICES REPRESENTATIVE-C Status: REG CLI Location: PSN Date: Sex: F C PSN 6 Minute Walk Test - 6 Minute Walk Test 6 Minute Walk Test: 6 Minute Walk Test PSN:6-Minute Walk Test Start: 07/04/20 08:54 Freq: Status: Active Protocol: RESP.6MINW Document 07/04/20 08:54 [facility] (Rec: 07/04/20 09:07 [facility] [id number]) 6 Minute Walk Test Date Performed 07/04/20 [...] CC: Date Dictated: 07/04/201530 Date Transcribed: 07/04/201530 Political Advisor: Dr. Ernesto Webster MD Signed Lydia Marte Start: 07-01-2020 End: 07-01-2020 Pulmonary Function Report Comp Comments: See Note; NOTES: [facility] Pulmonary Services/Neurology [address] [place] [address] MR#: [id number] Acct: [id number] Name: ADRIANA DILL Rep #: [id number] : 1955 65 From: Ernesto Webster MD Referring Dr: Yuni Banks NP ELIGIBILITY SERVICES REPRESENTATIVE-C Status: REG [facility] Location: [facility] Date: 07/01/20 Sex: F C COMPLETE PULMONARY FUNCTION TEST INTERPRETATION Brief HPI: Patient is a 65 year old female, currently under the care of myself, who presents to [facility] for complete pulmonary function tests secondary to [...] Webster MD> Date Ernesto Webster MD CC: ELIGIBILITY SERVICES REPRESENTATIVE-C Yuni Banks; Dr. Ernesto Webster MD; Dr. Lydia Marte, DO Date Dictated: 07/01/201111 Date Transcribed: 07/01/201111 Political Advisor: BA Signed Lydia Marte Start: 05-16-2020 End: 05-16-2020 Shoulder min 2 Views Comments: See Note; NOTES: [facility] Imaging Services [address] [place] [address] Shoulder min 2 Views MR#: [id number] Acct: [id number] Name: FUENTESADRIANA E Rep #: [id number] : 1955 F 65 From: Jake Patterson i, MD PCP: Dr. Lydia Marte, Status: REG CLI Study: Shoulder min 2 Views Date of Exam: 05/16/20 Exam# [id number] Ordering Dr: Lydia Marte DO STUDY: X-RAY [...] support , CC: Dr. Lydia Marte DO Political Advisor: Signed Lydia Marte Work Phone: Start: 04-29-2020 End: 04-30-2020 Emergency Department Summary Comments: See Note; NOTES: [facility] Medical Records Department [address] [place] [address] Emergency Department Summary 04/29/20 MR#: [id number] Acct: [id number] Name: ADRIANA DILL Rep #: [id number] : 1955 65 From: Franc Hodge DO [...] Hemorrhagic cystitis This note was generated with Ynsect dictation software. It may contain incorrect words, [...] problems, contact your Primary Care Provider. Call [facility] ([phone]) or report to the closest Emergency Room. Call 911 if necessary. 04/30/20 0123 <Electronically signed by Franc Hodge DO> Date Franc Hodge DO Cosigner Signature (If Indicated): Date CC: DO Lydia Martinez Start: 02-15-2020 End: 02-16-2020 Echo Complete W/ Contrast Comments: See Note; NOTES: [facility] Cardiovascular Services [address] [place] [address] Echo Complete W/ Contrast 02/15/20 1005 MR#: [id number] Acct: [id number] Name: ADRIANA DILL Rep #: [id number] : 1955 65 From: Stanley Marcos MD Attending Dr: Dr. Stanley Marcos MD Status: REG CLI Ordering Dr: Stanley Marcos MD Date: 02/15/20 Location: [facility] Sex: F C Admitted: Reason [...] Dictated: 02/15/20 1005 Date Transcribed: 02/16/20 1346 Political Advisor: Signed Lydia Marte Start: 01-26-2020 End: 01-26-2020 /ROBERT.VV Comments: See Note; NOTES: [place] [address] [address] [place] [address] OFFICE VISIT Date of Service: 01/26/20 MR#: [id number] Acct: [id number] Patient: ADRIANA DILL Rep #: [id number] : 1955 Provider: Brittany Oleary Age/Sex: 65/F [place] [facility] [place] Status: Signed Intake Vital Signs 01/26/20 [...] 6 M FU Chief Complaint: Routine f/u Boring Machine Feeder Required: No Is patient in pain?: No [...] History Brother CAD (coronary artery disease) from [place] age 52 Father Dementia Mother Cancer Social [...] status post pulmonary vein isolation at the [facility] in 2003, mild coronary disease status [...] underwent left and right heart catheterization at [facility] by myself on 03/05/17 which demonstrated normal [...] deferred d/t telephone visit during COVID-19 [facility] Musculoskeletal: No muscle weakness Details: Details:: Exam [...] Pulmonary Visit Report Comments: See Note; NOTES: [facility] Pulmonary Medicine of [place] [address] [place] [address] OFFICE VISIT Date of Service: 06/21/19 MR#: [id number] Acct: [id number] Name: ADRIANA DILL Rep #: [id number] : 1955 Provider: STEVEN Banks Age/Sex: 64/F Location: [facility] [place] Status: Signed Assessment AND Plan 1. Obstructive [...] Orders Orders: Other Medications Discontinued: Flucelvax Quad 2664-2992 (flu vac qs 2019-20.5 mL IM ONCE [...] oz Intake Visit Reasons: 6 M FU [facility] Vendor: [employer] Accompanied by: Self Allergies No Known Allergies [...] DAILY #90 tab 06/05/19 [Rx Confirmed 06/21/19] [facility] Medical History Long-term use of high-risk [...] History Brother CAD (coronary artery disease) from [place] age 52 Father Dementia Mother Cancer Social [...] Admin Location Lot Number Expiration Date NDC Sleeping Car Service Attendant 0.5 mL IM R deltoid [id number] 03/19/20 38760-841-40 SEQIRUS Coding Level of Care Code Off vis,est,level 3 Diagnoses Obstructive sleep apnea G47.33 BMI 33.0-33.9,adult Z68.33 Secondary pulmonary arterial hypertension I27.21 06/21/19 0910 <Electronically signed by Yuni HARRIS> Date Yuni HARRIS Cosigner Signature: Date (if applicable) CC: Lydia Newman Start: 06-05-2019 End: 06-05-2019 Cardiology Visit Report Comments: See Note; NOTES: [facility] [address] [place] [address] OFFICE VISIT Date of Service: 06/05/19 MR#: [id number] Acct: [id number] Name: ADRIANA DILL Rep #: [id number] : 1955 Provider: Stanley Marcos MD Age/Sex: 64/F [place] [facility] [place] Status: Signed HPI HPI History of Present Illness Details: Chief Complaint: Routine f/u Details: Details: Details: Referring physician: Dr. Jeanne Quinones It was a pleasure seeing your patient, Adriana Dill, today in our office. She Is a 64-year-old female and is returning for followup of her atrial fibrillation status post pulmonary vein isolation at the [facility] in 2003, mild coronary disease status [...] underwent left and right heart catheterization at [facility] by myself on 03/05/17 which demonstrated normal [...] 115/60 Intake Visit Reasons: 6 M FU Boring Machine Feeder Required: No Is patient in pain?: No [...] DAILY #90 tab 06/05/19 [Rx Confirmed 06/05/19] [facility] Medical History Long-term use of high-risk [...] History Brother CAD (coronary artery disease) from [place] age 52 Father Dementia Mother Cancer Social [...] Emergency Department Summary Comments: See Note; NOTES: [facility] Medical Records Department [address] [place] [address] Emergency Department Summary 04/02/19 0913 MR#: [id number] Acct: [id number] Name: ADRIANA DILL Rep #: [id number] : 1955 64 From: Vinh NOLAN PCP: [...] will be given a short course of [place] as she is anticoagulated and is unable [...] Making Patient was seen with the physician chiropractic assistant agree with the history and physical [...] Instructions: Rib Contusion Prescriptions: Hydrocodone Bitart/Apap 5-325 [[place] 5MG-325MG] 1 tab PO Q6H PRN PRN 3 Days #12 tab PRN Reason: Pain Prescription Printed Referrals: Lydia Marte, DO [Primary Care Provider] - What to do if you have Problems For any increased pain, shortness of breath, bleeding, nausea or vomiting, chest pain, or any unexpected problems, contact your Primary Care Provider. Call [facility] ([phone]) or report to the closest Emergency Room. Call 911 if necessary. 04/02/19 1108 <Electronically signed by Vinh NOLAN> Date Vinh NOLAN 04/23/19 1119<Electronically signed by Marium Villalobos MD> Cosigner Signature (If Indicated): Date Marium Villalobos MD CC: Lydia Marte DO Lydia Marte Start: 04-02-2019 End: 04-02-2019 Ribs Uni Min 3V w/PA Chest Comments: See Note; NOTES: [facility] Imaging Services [address] [place] [address] Ribs Uni Min 3V w/PA Chest MR#: [id number] Acct: [id number] Name: ADRIANA DILL Rep #: [id number] : 1955 F 64 From: Irene Smith MD PCP: Lydia Marte DO Status: REG ER Study: Ribs Uni Min 3V w/PA Chest Date of Exam: 04/02/19 Exam# [id number] Ordering Dr: Vinh Duarte STUDY: X-RAY - [...] , CC: OVIDIO Duarte; Lydia Marte DO Political Advisor: Signed Lydia Marte Start: 12-19-2018 End: 12-19-2018 Pulmonary Visit Report Comments: See Note; NOTES: [facility] Pulmonary Medicine of [place] [address] [place] [address] OFFICE VISIT Date of Service: 12/19/18 MR#: [id number] Acct: [id number] Name: ADRIANA DILL Rep #: [id number] : 1955 Provider: Yuni Banks Age/Sex: 63/F Location[place] [facility] [place] Status: Signed Assessment AND Plan 1. Obstructive [...] lb Intake Visit Reasons: 6 M FU [facility] Vendor: [employer] Accompanied by: Allergies No Known [...] QDAY #90 tab 11/29/18 [Rx Confirmed 12/19/18] [facility] Medical History Long-term use of high-risk [...] History Brother CAD (coronary artery disease) from [place] age 52 Father Dementia Mother Cancer Social [...] Minute Walk Test Comments: See Note; NOTES: [facility] Pulmonary Services/Neurology [facility] [place] [address] MR#: [id number] Acct: [id number] Name: ADRIANA DILL Rep #: [id number] : 1955 63 From: Michael Segal DO Referring Dr: Michael Segal D.O. Date: Ordering Dr: Sex: F C Location: PSN PSN 6 Minute Walk Test - 6 Minute Walk Test 6 Minute Walk Test: 6 Minute Walk Test PSN:6-Minute Walk Test Start: 12/14/18 11:30 Freq: Status: Active Protocol: RESP.6MINW Document 12/14/18 11:30 SMB (Rec: 12/14/18 11:33 SMB [id number]) 6 Minute Walk Test Date Performed 12/14/18 [...] CC: Date Dictated: 12/14/181251 Date Transcribed: 12/14/181251 Political Advisor: Michael Segal DO Signed Lydia Marte Start: 10-27-2018 End: 10-27-2018 Cardiology Visit Report Comments: See Note; NOTES: [facility] [address] [place] [address] OFFICE VISIT Date of Service: 10/27/18 MR#: [id number] Acct: [id number] Name: ADRIANA DILL Rep #: [id number] : 1955 Provider: Stanley Marcos MD Age/Sex: 63/F [place] [facility] [place] Status: Signed HPI HPI Chief Complaint: Routine f/u Details: Details: Details: Referring physician: Dr. Jeanne Quinones It was a pleasure seeing your patient, Adriana Dill, today in our office. She Is a 63-year-old female and is returning for followup of her atrial fibrillation status post pulmonary vein isolation at the [facility] in 2003, mild coronary disease status [...] underwent left and right heart catheterization at [facility] by myself on 03/05/17 which demonstrated normal [...] 90/44 L Intake Visit Reasons: 6 M Boring Machine Feeder Required: No Is patient in pain?: No [...] mg PO DAILY 10/27/18 [History Confirmed 10/27/18] [facility] Medical History Long-term use of high-risk [...] History Brother CAD (coronary artery disease) from [place] age 52 Father Dementia Mother Cancer Social [...] Stanley Marcos MD> Date Stanley Marcos MD [facility] Signature: Date (if applicable) CC: Lydia Newman Start: 10-26-2018 End: 10-26-2018 Echocardiogram Complete Comments: See Note; NOTES: [facility] Cardiovascular Services [address] [place] [address] Echo Complete 10/26/18 1005 MR#: [id number] Acct: [id number] Name: ADRIANA DILL Rep #: [id number] : 1955 63 From: Stanley Marcos MD Attending Dr: Stanley Marcos MD Status: REG I Ordering Dr: Stanley Marcos MD Date: 10/26/18 Location: [facility] Sex: F C Admitted: Reason [...] Dictated: 10/26/18 1005 Date Transcribed: 10/26/18 1546 Political Advisor: Signed Lydia Marte Start: 08-16-2018 End: 08-17-2018 Shoulder min 2 Views Comments: See Note; NOTES: [facility] Imaging Services [address] [place] [address] [place] [address] Shoulder min 2 Views MR#: [id number] Acct: [id number] Name: ADRIANA DILL Rep #: [id number] : 1955 F 63 From: Inderjit Choudhary DO PCP: Lydia Marte DO Status: REG CLI Study: Shoulder min 2 Views Date of Exam: 08/16/18 Exam# [id number] Ordering Dr: Lydia Marte DO STUDY: X-RAY [...] Service support , CC: Lydia Marte DO Political Advisor: Signed Lydia Marte Work Phone: Start: 08-16-2018 End: 08-17-2018 Hand Min 3 Views Comments: See Note; NOTES: [facility] Imaging Services [address] [place] [address] Hand Min 3 Views MR#: [id number] Acct: [id number] Name: ADRIANA DILL Rep #: [id number] : 1955 F 63 From: Inderjit Choudhary DO PCP: Lydia Marte DO Status: REG CLI Study: Hand Min 3 Views Date of Exam: 08/16/18 Exam# [id number] Ordering Dr: Lydia Marte DO STUDY: X-RAY [...] Service support , CC: Lydia Marte DO Political Advisor: Signed Lydia Marte Work Phone: Start: 08-16-2018 End: 08-17-2018 Hips B/L min 2 views w/ Pelvis Comments: See Note; NOTES: [facility] Imaging Services [address] [place] [address] Hips B/L min 2 views w/ Pelvis MR#: [id number] Acct: [id number] Name: ADRIANA DILL Kenna Rep #: [id number] : 1955 F 63 From: Inderjit Choudhary DO PCP: Lydia Marte DO Status: REG CLI Study: Hips B/L min 2 views w/ Pelvis Date of Exam: 08/16/18 Exam# [id number] Ordering Dr: Lydia Marte DO STUDY: X-RAY [...] Service support , CC: Lydia Marte DO Political Advisor: Signed Lydia Marte Work Phone: Start: 08-16-2018 End: 08-17-2018 L/S Spine Min 4 Views Comments: See Note; NOTES: [facility] Imaging Services [address] [place] [address] L/S Spine Min 4 Views MR#: [id number] Acct: [id number] Name: ADRIANA DILL Rep #: [id number] : 1955 F 63 From: Inderjit Choudhary DO PCP: Lydia Marte DO Status: REG CLI Study: L/S Spine Min 4 Views Date of Exam: 08/16/18 Exam# [id number] Ordering Dr: Lydia Marte DO STUDY: X-RAY [...] Service support , CC: Lydia Marte DO Political Advisor: Signed Lydia Marte Work Phone: Start: 07-12-2018 End: 07-12-2018 Pulmonary Visit Report Comments: See Note; NOTES: [facility] [place] [address] [place] [address] OFFICE VISIT Date of Service: 07/12/18 MR#: [id number] Acct: [id number] Name: ADRIANA DILL Rep #: [id number] : 1955 Provider: Ernesto Webster MD Age/Sex: 63/F Location: [facility] [place] Status: Signed Assessment AND Plan Problems 1. [...] Orders: Plan Detail Follow Up 6 Months ([facility] HPI 6 M FU: Chief Complaint: [...] kg Intake Visit Reasons: 6 M FU Boring Machine Feeder Required: No Accompanied by: Self Is patient [...] History Brother CAD (coronary artery disease) from [place] age 52 Father Dementia Mother Cancer Social [...] Cardiology Visit Report Comments: See Note; NOTES: [facility] [address] [place] [address] OFFICE VISIT Date of Service: 04/22/18 MR#: [id number] Acct: [id number] Name: ADRIANA DILL Rep #: [id number] : 1955 Provider: Stanley Marcos MD Age/Sex: 63/F Location: [facility] [place] Status: Signed HPI HPI Chief Complaint: Routine f/u Details: Details: Referring physician: Dr. Jeanne Quinones It was a pleasure seeing your patient, Adriana Dill, today in our office. She Is a 63-year-old female and is returning for followup of her atrial fibrillation status post pulmonary vein isolation at the [facility] in 2003, mild coronary disease status [...] underwent left and right heart catheterization at [facility] by myself on 03/05/17 which demonstrated normal [...] QDAY #90 tab 11/10/17 [Rx Confirmed 04/22/18] [facility] Medical History Long-term use of high-risk [...] History Brother CAD (coronary artery disease) from [place] age 52 Father Dementia Mother Cancer Social [...] Minute Walk Test Comments: See Note; NOTES: [facility] Pulmonary Services/Neurology [address] [place] [address] MR#: [id number] Acct: [id number] Name: ADRIANA DILL Rep #: [id number] : 1955 63 From: Ernesto Webster MD Referring Dr: Yuni Banks NP Date: Ordering Dr: Sex: F C Location: PSN PSN 6 Minute Walk Test - 6 Minute Walk Test 6 Minute Walk Test: 6 Minute Walk Test PSN:6-Minute Walk Test Start: 02/17/18 08:49 Freq: Status: Active Protocol: RESP.6MINW Document 02/17/18 08:30 EW (Rec: 02/17/18 08:52 EW [id number]) 6 Minute Walk Test Date Performed 02/17/18 [...] Date Dictated: 02/17/18 1040 Date Transcribed: 02/17/181039 Political Advisor: Ernesto Webster Signed Lydia Marte Start: 01-12-2018 End: 01-12-2018 Pulmonary Visit Report Comments: See Note; NOTES: Pulmonary Medicine [address] [place] [address] OFFICE VISIT Date of Service: 01/11/18 MR#: [id number] Acct: [id number] Name: ADRIANA DILL Rep #: [id number] : 1955 Provider: Yuni Banks Age/Sex: 63/F Location: [facility] [place] Status: Signed Assessment AND Plan 1. MEGHAN [...] any inhalers. She has not tried any sxgp-bdv-shbtvuw medications. She is pleased that she continues [...] lb Intake Visit Reasons: 6 M FU [facility] Vendor: [employer] Allergies flecainide Allergy (Verified 01/11/18 [...] QDAY #90 tab 11/10/17 [Rx Confirmed 01/11/18] [facility] Medical History Long-term use of high-risk [...] History Brother CAD (coronary artery disease) from [place] 52 Father Dementia Mother Cancer Social [...] Function Report Comp Comments: See Note; NOTES: [facility] Pulmonary Services/Neurology [address] [place] [address] MR#: [id number] Acct: [id number] Name: ADRIANA DILL Rep #: [id number] : 1955 62 From: Ernesto Webster MD Referring Dr: Ernesto Webster MD Status: REG CLI Ordering Dr: Date: Location: [facility] Sex: F C COMPLETE PULMONARY FUNCTION TEST INTERPRETATION Brief HPI: Patient is a 62 year old female, currently under the care of myself, who presents to [facility] for complete pulmonary function tests secondary to [...] Date Dictated: 12/21/17 1438 Date Transcribed: 12/21/171437 Political Advisor: DAVID Signed Lydia Marte Start: 10-19-2017 End: 10-19-2017 Cardiology Visit Report Comments: See Note; NOTES: [facility] [address] [place], [place] [address]e. [address] [place] [address] OFFICE VISIT Date of Service: 10/19/17 MR#: [id number] Acct: [id number] Name: ADRIANA DILL Rep #: [id number] : 1955 Provider: Stanley Marcos MD Age/Sex: 62/F Location: [facility] Status: Signed HPI 3 M FU: Chief Complaint: Routine follow-up Details: Referring physician: Dr. Jeanne Quinones It was a pleasure seeing your patient, Adriana Dill, today in our office. She Is a 62-year-old female and is returning for followup of her atrial fibrillation status post pulmonary vein isolation at the [facility] in 2003, mild coronary disease status [...] underwent left and right heart catheterization at [facility] by myself on 03/05/17 which demonstrated normal [...] History Brother CAD (coronary artery disease) from [place] age 52 Social History Smoking Status: Former [...] 10-11-2017 Echocardiogram Complete Comments: See Note; NOTES: [facility] Cardiovascular Services [address] [place] [address] Echo Complete 10/07/17 1045 MR#: [id number] Acct: [id number] Name: ADRIANA DILL Rep #: [id number] : 1955 62 From: Stanley Marcos MD Attending Dr: Stanley Marcos MD Status: REG CLI Ordering Dr: Stanley Marcos MD Date: 10/07/17 Location: [facility] Sex: F C Admitted: Reason [...] Dictated: 10/07/17 1045 Date Transcribed: 10/11/17 1039 Political Advisor: Signed Lydia Marte Start: 07-23-2017 End: 07-23-2017 6 Minute Walk Test Comments: See Note; NOTES: [facility] Pulmonary Services/Neurology [address] [place] [address] MR#: [id number] Acct: [id number] Name: ADRIANA DILL Rep #: [id number] : 1955 62 From: Ernesto Webster MD Referring Dr: Ernesto Webster MD Date: Ordering Dr: Sex: F C Location: PSN PSN 6 Minute Walk Test - 6 Minute Walk Test 6 Minute Walk Test: 6 Minute Walk Test PSN:6-Minute Walk Test Start: 07/21/17 09:24 Freq: Status: Active Document 07/21/17 09:05 [facility] [place]Rec: 07/21/17 09:28 [facility] [place] [id number][place] 6 Minute Walk Test Date Performed 07/21/17 [...] CC: Date Dictated: 07/23/17711 Date Transcribed: 07/23/17711 Political Advisor: Ernesto Webster Signed Lydia Marte Start: 04-25-2017 End: 04-25-2017 6 Minute Walk Test Comments: See Note; NOTES: [facility] Pulmonary Services/Neurology [address] [place] [address] MR#: [id number] Acct: [id number] Name: ADRIANA DILL Rep #: [id number] : 1955 62 From: Michael Segal DO Referring Dr: Yuni Banks ELIGIBILITY SERVICES REPRESENTATIVE Date: Ordering Dr: Sex: F C Location: PSN PSN 6 Minute Walk Test - 6 Minute Walk Test 6 Minute Walk Test: 6 Minute Walk Test PSN:6-Minute Walk Test Start: 04/23/17 11:39 Freq: Status: Active Document 04/23/17 11:00 EW (Rec: 04/23/17 11:47 EW [id number]) 6 Minute Walk Test Date Performed 04/23/17 [...] Dictated: 04/25/17 1120 Date Transcribed: 04/25/17 1120 Political Advisor: Michael Segal DO Signed Lydia Montezon Start: 03-18-2017 End: 03-18-2017 Pulmonary Function Report Comp Comments: See Note; NOTES: [facility] Pulmonary Services/Neurology [address] [place] [address] MR#: [id number] Acct: [id number] Name: ADRIANA DILL Rep #: [id number] : 1955 62 From: Ernesto Webster MD Referring Dr: Stanley Marcos MD Status: REG CLI Ordering Dr: Date: Location: [facility] Sex: F C Pulmonary Function Report Comp Pulmonary Function Report Comp: COMPLETE PULMONARY FUNCTION TEST INTERPRETATION Brief HPI: Patient is a 62 year old female, currently under the care of Dr. Marcos, who presents to [facility] for complete pulmonary function tests secondary to [...] DO Date Dictated: 03/18/171609 Date Transcribed: 03/18/171609 Political Advisor: DAVID Signed Lydia Marte Start: 03-05-2017 End: 03-05-2017 Echo Transesophageal (JOÃO) Comments: See Note; NOTES: [facility] Cardiovascular Services [address] [place] [address] Echo Transesophageal (JOÃO) 03/05/17 1009 MR#: [id number] Acct: [id number] Name: ADRIANA DILL Rep #: [id number] : 1955 62 From: Stanley Marcos MD Attending Dr: Stanley Marcos MD Status: REG CLI Ordering Dr: Stanley Marcos MD Date: 03/05/17 Location: [facility] Sex: F C Admitted: Reason For Study: Aortic stenosis Medication JOÃO probe passed without difficulty. [id number] gargled and swallowed. Versed 2 mg given [...] Marcos MD; Lydia Marte DO Date Dictated: 03/05/17 1009 Date Transcribed: 03/05/17 1445 Political Advisor: Signed Lydia Marte Start: 09-17-2016 End: 09-17-2016 Chest PA and Lateral Comments: See Note; NOTES: [facility] Imaging Services [address] [place] [address] Verdana 4d Chest PA and Lateral MR#: [id number] Acct: [id number] Name: ADRIANA DILL Rep #: [id number] : 1955 F 61 From: Daryn Phelan MD PCP: Lydia Marte DO Status: REG CLI Study: Chest PA and Lateral Date of Exam: 09/17/16 Exam# [id number] Ordering Dr: Shekhar Sharpe STUDY: X-RAY CHEST [...] Daryn Phelan MD at 15:02 EST Tel [phone], Service support [phone], CC: Lydia Marte DO; Shekhar Sharpe Political Advisor: Signed Shekhar Sharpe Work Phone: Start: 08-26-2016 End: 08-26-2016 Echocardiogram Complete Comments: See Note; NOTES: [facility] Cardiovascular Services [address] [place] [address] Echo Complete 08/26/16 1131 MR#: [id number] Acct: [id number] Name: ADRIANA DILL Rep #: [id number] : 1955 61 From: Stanley Marcos MD Attending Dr: Stanley Marcos MD Status: REG CLI Ordering Dr: Stanley Marcos MD Date: 08/26/16 Location: [facility] Sex: F C Admitted: Reason [...] Marte Performed By: Lina Bee RDCS 08/26/16 1553 Date Stanley Marcos MD CC: Stanley Marcos MD; Lydia Min [place] Date Dictated: 08/26/16 1131 Date Transcribed: 08/26/16 1695 Political Advisor: Signed Lydia Marte Start: 08-18-2016 End: 08-18-2016 Bilat Scrn Digital AND CAD Comments: See Note; NOTES: [facility] Imaging Services [address] [place] [address] Verdana 4d Bilat Scrn Digital AND CAD MR#: [id number] Acct: [id number] Name: ADRIANA DILL Rep #: [id number] : 1955 F 61 From: Calixto Main MD PCP: Lydia Marte DO Status: REG CLI Study: Bilat Scrn Digital AND CAD Date of Exam: 08/18/16 Exam# [id number] Ordering Dr: Lydia Marte DO MAMMOGRAPHY - [...] delay biopsy of a clinically suspicious [place]. [id number] Electronically Signed: Modesto Main MD at 10:13 EST Tel , Service support [phone], CC: Lydia Marte DO Political Advisor: Signed Lydia Marte Work Phone: Start: 07-29-2016 End: 07-29-2016 L/S Spine Min 4 Views Comments: See Note; NOTES: [facility] Imaging Services [address] [place] [address] Verda 4d L/S Spine Min 4 Views MR#: [id number] Acct: [id number] Name: ADRIANA DILL Rep #: [id number] : 1955 F 61 From: Juvenal Zarate MD PCP: Lydia Marte DO Status: REG CLI Study: L/S Spine Min 4 Views Date of Exam: 07/29/16 Exam# [id number] Ordering Dr: Lydia Marte DO STUDY: X-RAY [...] MD at 17:01 EST , Service support [phone], CC: Lydia Marte DO Political Advisor: Signed Lydia Marte Work Phone: Start: 12-25-2014 End: 12-25-2014 Emergency Department Summary Comments: See Note; NOTES: [facility] Medical Records Department [address] [place] [address] Emergency Department Summary MR#: [id number] Acct: [id number] Name: ADRIANA DILL Rep #: [id number] : 1955 59 From: Gema Marr PCP: [...] Татьяна Rhoades C: Jeanne Quinones DO T: [facility] JOB: [id number] 12/25/14 0056 <Electronically signed by Gema Marr > Date Gema Marr CC: Jeanne Quinones DO Date Dictated: 12/17/14 1248 Date Transcribed: 12/17/141247 Political Advisor: Signed Lydia Marte Start: 12-18-2014 End: 12-18-2014 12 lead ECG Comments: See Note; NOTES: [facility] Cardiovascular Services [address] [place] [address] 12 Lead EKG 12/17/14 1129 MR#: [id number] Acct: [id number] Name: ADRIANA DILL Rep #: [id number] : 1955 59 From: Sj Rowe MD [...] ECG Confirmed by SJ ROWE MD ([id number]), restaurant expeditor MATHIEU SIMON ([id number]) on 12/18/2014 2 :39:37 PM Referred By: OLIVA Confirmed By:SJ ROWE MD 12/18/14 1439 Date Sj Rowe MD CC: Jeanne Quinones DO Date Dictated: 12/17/14 1129 Date Transcribed: 12/17/141128 Political Advisor: Elizabeth Marte Start: 12-17-2014 End: 12-17-2014 Discharge Instruction Comments: See Note; NOTES: [facility] Medical Records Department [address] [place] [address] Discharge Instruction 12/17/14 1244 MR#: [id number] Acct: [id number] Name: ADRIANA DILL Rep #: [id number] : 1955 59 From: Gema Marr PCP: [...] PA and Lateral Comments: See Note; NOTES: [facility] Imaging Services [address] [place] [address] Radiology Report MR#: [id number] Acct: [id number] Name: ADRIANA DILL Rep #: [id number] : 1955 F 59 From: Daryn Phelan MD PCP: Jeanne Quinones DO Status: REG ER Study: Chest PA and Lateral Date of Exam: 12/17/14 Exam# [id number] Ordering Dr: Gema Marr STUDY: X-RAY CHEST [...] Daryn Phelan MD at 12:26 EDT Tel [phone], Service support [phone], RAD/Chest PA and Lateral IMPRESSION: There is elevation of the right hemidiaphragm with linear atelectasis at the right lung base. Electronically Signed: Daryn Phelan MD at 12:26 EDT Tel [phone], Service support [phone], CC: Gema Quinones DO Political Advisor: Signed Lydia Marte Start: 08-08-2014 End: 08-08-2014 Echocardiogram Complete Comments: See Note; NOTES: [facility] Cardiovascular Services [address] [place] [address] Echo Complete 08/08/14 1245 MR#: [id number] Acct: [id number] Name: ADRIANA DILL Rep #: [id number] : 1955 59 From: Stanley Marcos MD Attending Dr: Stanley Marcos MD Status: REG CLI Ordering Dr: Stanley Marcos MD Date: 08/08/14 Location: [facility] Sex: F C Admitted: Procedure [...] Stanley Marcos Performed By: PIETRO Jiménez 08/08/14 1604 Date Stanley Marcos MD CC: Stanley Marcos MD; Jeanne Fast DO Date Dictated: 08/08/14 1245 Date Transcribed: 08/08/14 1607 Political Advisor: Signed Lydia Marte Appendgissell Lyon Plan of Treatment Date Care Activity Detail Author Start: 02-22-2024 End: 02-22-2024 Patient encounter procedure 02/22/2024 2:00 PM EDT Office Visit [facility] [address] [place] [address] Ophelia Fonseca MD [address] [address] [facility] Start: 05-21-2023 COVID-19 Vaccine ( season) COVID-19 Vaccine ( season) [facility] Start: 10-26-2022 Procedure Education Eprescribed prescriptions (G8553) [...] stick/tablet reagent auto microscopy URINALYSIS, W/ MICRO (28920) [facility] Work Phone: Start: 04-08-2022 Procedure Education Eprescribed prescriptions (G8553) [facility]; [facility] Work Phone: Start: 04-08-2022 Provider Instructions for Treatment Follow up [facility]; [facility] Work Phone: Start: 04-08-2022 Blood count manual cell count each CBC with auto diff (39153) [facility]; [facility] Work Phone: Start: 04-08-2022 Comprehensive metabolic panel METABOLIC PANEL, COMPREHENSIVE (67070) [facility]; [facility] Work Phone: Start: 04-08-2022 Urnls dip stick/tablet reagent auto microscopy URINALYSIS, W/ MICRO (79293) [facility]; [facility] Work Phone: Start: 04-08-2022 Urine albumin quantitative MICROALBUMIN: CREATININE RATIO (79761) AND (60784) [facility]; [facility] Work Phone: Start: 04-08-2022 Culture bct isol&prsmptv id isolate ea urine URINE ABDOULAYE CULTURE-IDENTIFICATN (53771) [facility]; [facility] Work [...] 25 hydroxy includes fractions if performed CALCIFEDIOL (23242) [facility]; [facility] Work Phone: Start: 03-17-2021 Assay of thyroid stimulating hormone tsh TSH (60468) [facility]; [facility] Work Phone: Start: 03-17-2021 Urnls dip stick/tablet reagent auto microscopy URINALYSIS, W/ MICRO (66932) [facility]; [facility] Work Phone: Start: 03-17-2021 Urine albumin quantitative MICROALBUMIN: CREATININE RATIO (81376) AND (82545) [facility]; [facility] Work Phone: Start: 03-17-2021 Comprehensive metabolic panel METABOLIC PANEL, COMPREHENSIVE (53562) [facility]; [facility] Work Phone: Start: 03-17-2021 Lipid panel LIPID PANEL (96078) [facility]; [facility] Work Phone: Start: 03-17-2021 Blood count complete auto&auto difrntl wbc CBC W/AUTO DIFF WBC (61987) [facility]; [facility] Work [...] Work Phone: Start: 05-16-2020 TSH Qn TSH (17797) [facility] Work Phone: Start: 05-16-2020 Urnls dip stick/tablet reagent auto microscopy URINALYSIS, W/ MICRO (27567) [facility] Work Phone: Start: 05-16-2020 Urine albumin quantitative MICROALBUMIN: CREATININE RATIO (56756) AND (88650) [facility] Work Phone: Start: 05-16-2020 Comprehensive metabolic panel METABOLIC PANEL, COMPREHENSIVE (83218) [facility] Work Phone: Start: 05-16-2020 Blood count complete auto&auto difrntl wbc CBC W/AUTO DIFF WBC (22428) [facility] Work Phone: Start: 05-16-2020 Lipid panel LIPID PANEL (89623) [facility] Work Phone: Start: 05-16-2020 25 hydroxy includes fractions if performed CALCIFIDIOL (52962) VIT D 25 [facility] Work Phone: Start: 05-10-2020 Procedure Education Eprescribed prescriptions (G8553) [facility] Work Phone: Start: 05-10-2020 Provider Instructions for Treatment [facility] Work Phone: Start: 05-10-2020 Urnls dip stick/tablet rgnt non-auto w/o micrscp Urinalysis, Office (90009) [facility] Work Phone: Start: 04-25-2020 Culture bct isol&prsmptv id isolate ea urine URINE ABDOULAYE CULTURE-IDENTIFICATN (18022) [facility] Work Phone: Start: 01-12-2020 Fall risk assessment Falls Risk Assessment [facility] Start: 01-04-2020 Procedure Education Eprescribed prescriptions (G8553) [facility] Work Phone: Start: 01-04-2020 Provider Instructions for Treatment [facility] Work Phone: Start: 02-27-2019 Patient Education Stye: eye infection [facility] Work Phone: Start: 02-27-2019 Procedure [...] 08-16-2018 Comprehensive metabolic panel METABOLIC PANEL, COMPREHENSIVE (18896) [facility] Work Phone: Payers Date Payer Category Payer Medicare [employer] MANAGED M EDICARE [employer] [facility] GOLD PLUS HMO [id number] 2022-Present [id number] [place] [id number] 2022 Private Health Insurance [id number] 2021 Unknown [id number] 2017 Unknown [id number] 2014 Private Health Insurance [id number] 2013 Medicare [id number] 2013 Medicare [id number] 1955 Unknown [id number] 1955 Unknown [id number] 1955 Unknown [id number] 1955 Unknown [id number] . Unknown Unknown [id number] Social History Date Type Detail Facility Start: [...] ablation, following up with cardiology group in [place] Currently on on eliquis, metoprolol, verapamil. Associated Problem(s): MEGHAN (obstructive sleep apnea) Seeing sleep medicine Ashwini in [place] for CPAP Associated Problem(s): Hypertension controlled on ramipiril and hydrochlorothiazide Will wait on records , blood work to be repeated if 6 months out Advised to check blood pressure at home periodically documented in this encounter [facility] 09-02-2023 Evaluation + Plan note Associ ated Problem(s): Lipid disorder Controlled on gemfibrozil , statin and zetia [facility] 09-02-2023 Evaluation + Plan note Associ ated Problem(s): A-fib (HCC) S/p ablation, following up with cardiology group in [place] Currently on on eliquis, metoprolol, verapamil. [facility] 09-02-2023 Evaluation + Plan note Associ ated Problem(s): MEGHAN (obstructive sleep apnea) Seeing sleep medicine Ashwini in [place] for CPAP [facility] 09-02-2023 Evaluation + Plan note Associ ated Problem(s): Hypertension controlled on ramipiril and hydrochlorothiazide Will wait on records , blood work to be repeated if 6 months out Advised to check blood pressure at home periodically [facility] 09-02-2023 History of Presen t illness Narrative Return in about 6 months (around 03/03/2024) for MWV, please get records from , sleep, pulmonology and cardiology in [place] . I faxed for records Dr. Marte, [facility] Dr. Webster Pulmonolgy,[place] [facility] Chief Complaint Patient presents with [facility] Care HPI: Adriana Dill is a 68-year-old female presenting today as a new patient to establish care. Has PMH of A-fib, bipolar 1 disorder, depression, hyperlipidemia and pulmonary hypertension. Dr.Kathleen Solomon in [place]. 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 Afib: Chronic since 2003 , admitted her in at that time, tried adenosin and didn't help. Ablation didn't work. Then was seen in [facility] with another ablation that seems to work better Following with the [place] [facility]. Currently on on eliquis, metoprolol, verapamil. HTN: Chronic , controlled on ramipiril and hydrochlorothiazide as well as potassium supplementation. Bipolar disorder: Does telehealth with [place] [facility] , currently taking Zoloft , effexor and lamictal Have manic episode on Cymbalta refinanced her house twice and went on a cruise and maxed out on credit cards. Low back pain: through pain clinic in [place] for chronic low back pain and seems [...] sleep apnea) Seeing sleep medicine Ashwini in [place] for CPAP Cardiovascular and Mediastinum A-fib (HCC) - Primary S/p ablation, following up with cardiology group in [place] Currently on on eliquis, metoprolol, verapamil. Relevant [...] from , sleep, pulmonology and cardiology in [place] . OPHELIA FONSECA MD [facility] [address] [facility] [address] [facility] [address] Dept: [phone] documented in this encounter [facility] 09-02-2023 Instructions Ophelia Fonseca MD - 09/02/2023 [...] look into their status. Customer Service/Billing Questions: [phone] [facility] Assistance: [phone] or [phone] Financial Assistance: [phone] or [phone] Wednesday 7 am to 5 pm Wednesday 7 am to 5 pm Wednesday 7 am to 5 pm Wednesday 8 am to 2 pm documented in this encounter [facility] Name Dates Details How to Access Health Informa tion Online using Patient Portal and [employer] Apps Indication:Non-smoker Start:17-Mar-2021 Instruction Type:Patient Education Patient Instructions Indication:Non-smoker Start:17-Mar-2021 Instruction Type:Provider Instructions for Treatment obesity counseling Indication:Obstructive sleep apnea, adult Start:01-Oct-2020 Instruction Type:Provider Instructions for Treatment cardiovascular counseling Indication:Atrial fibrillation Start:01-Oct-2020 Instruction Type:Provider Instructions for Treatment How to Access Health Informa tion Online using Patient Portal and [employer] Apps Indication:Non-smoker Start:01-Oct-2020 Instruction Type:Patient Education Patient Instructions Indication:Non-smoker Start:01-Oct-2020 Instruction Type:Provider Instructions for Treatment Patient Instructions Indication:Non-smoker Start:16-Sep-2020 Instruction Type:Provider Instructions for Treatment How to Access Health Informa tion Online using Patient Portal and [employer] Apps Indication:Non-smoker Start:16-Sep-2020 Instruction Type:Patient Education How [...] Informa tion Online using Patient Portal and [employer] Apps Indication:Non-smoker Start:17-Mar-2021 Instruction Type:Patient Education Patient Instructions Indication:Non-smoker Start:17-Mar-2021 Instruction Type:Provider Instructions for Treatment obesity counseling Indication:Obstructive sleep apnea, adult Start:01-Oct-2020 Instruction Type:Provider Instructions for Treatment cardiovascular counseling Indication:Atrial fibrillation Start:01-Oct-2020 Instruction Type:Provider Instructions for Treatment How to Access Health Informa tion Online using Patient Portal and [employer] Apps Indication:Non-smoker Start:01-Oct-2020 Instruction Type:Patient Education Patient Instructions Indication:Non-smoker Start:01-Oct-2020 Instruction Type:Provider Instructions for Treatment Patient Instructions Indication:Non-smoker Start:16-Sep-2020 Instruction Type:Provider Instructions for Treatment How to Access Health Informa tion Online using Patient Portal and [employer] Apps Indication:Non-smoker Start:16-Sep-2020 Instruction Type:Patient Education How [...] tion Online using Patient Portal and [employer] Apps Indication:BMI 36.0-36.9,adult Start:18-Jul-2021 Instruction Type:Patient Education Patient Instructions Indication:Non-smoker Start:09-May-2021 Instruction Type:Provider Instructions for Treatment How to Access Health Informa tion Online using Patient Portal and [employer] Apps Indication:Non-smoker Start:09-May-2021 Instruction Type:Patient Education How to Access Health Informa tion Online using Patient Portal and [employer] Apps Indication:Non-smoker Start:17-Mar-2021 Instruction Type:Patient Education Patient Instructions Indication:Non-smoker Start:17-Mar-2021 Instruction Type:Provider Instructions for Treatment obesity counseling Indication:Obstructive sleep apnea, adult Start:01-Oct-2020 Instruction Type:Provider Instructions for Treatment cardiovascular counseling Indication:Atrial fibrillation Start:01-Oct-2020 Instruction Type:Provider Instructions for Treatment How to Access Health Informa tion Online using Patient Portal and [employer] Apps Indication:Non-smoker Start:01-Oct-2020 Instruction Type:Patient Education Patient Instructions Indication:Non-smoker Start:01-Oct-2020 Instruction Type:Provider Instructions for Treatment Patient Instructions Indication:Non-smoker Start:16-Sep-2020 Instruction Type:Provider Instructions for Treatment How to Access Health Informa tion Online using Patient Portal and [employer] Apps Indication:Non-smoker Start:16-Sep-2020 Instruction Type:Patient Education How [...] tion Online using Patient Portal and [employer] Apps Indication:Urinary frequency Start:08-Apr-2022 Instruction Type:Patient Education Patient Instructions Indication:Non-smoker Start:08-Oct-2021 Instruction Type:Provider Instructions for Treatment How to Access Health Informa tion Online using Patient Portal and 3rd [employer] Apps Indication:Non-smoker Start:08-Oct-2021 Instruction Type:Patient Education Patient Instructions Indication:BMI 36.0-36.9,adult Start:18-Jul-2021 Instruction Type:Provider Instructions for Treatment How to Access Health Informa tion Online using Patient Portal and 3rd [employer] Apps Indication:BMI 36.0-36.9,adult Start:18-Jul-2021 Instruction Type:Patient Education Patient Instructions Indication:Non-smoker Start:09-May-2021 Instruction Type:Provider Instructions for Treatment How to Access Health Informa tion Online using Patient Portal and 3rd [employer] Apps Indication:Non-smoker Start:09-May-2021 Instruction Type:Patient Education How to Access Health Informa tion Online using Patient Portal and 3rd [employer] Apps Indication:Non-smoker Start:17-Mar-2021 Instruction Type:Patient Education Patient Instructions Indication:Non-smoker Start:17-Mar-2021 Instruction Type:Provider Instructions for Treatment obesity counseling Indication:Obstructive sleep apnea, adult Start:01-Oct-2020 Instruction Type:Provider Instructions for Treatment cardiovascular counseling Indication:Atrial fibrillation Start:01-Oct-2020 Instruction Type:Provider Instructions for Treatment How to Access Health Informa tion Online using Patient Portal and 3rd [employer] Apps Indication:Non-smoker Start:01-Oct-2020 Instruction Type:Patient Education Patient Instructions Indication:Non-smoker Start:01-Oct-2020 Instruction Type:Provider Instructions for Treatment Patient Instructions Indication:Non-smoker Start:16-Sep-2020 Instruction Type:Provider Instructions for Treatment How to Access Health Informa tion Online using Patient Portal and 3rd [employer] Apps Indication:Non-smoker Start:16-Sep-2020 Instruction Type:Patient Education How [...] tion Online using Patient Portal and 3rd Republican Apps Indication:Urinary frequency Start:08-Apr-2022 Instruction Type:Patient Education Patient Instructions Indication:Non-smoker Start:08-Oct-2021 Instruction Type:Provider Instructions for Treatment How to Access Health Informa tion Online using Patient Portal and 3rd Republican Apps Indication:Non-smoker Start:08-Oct-2021 Instruction Type:Patient Education Patient Instructions Indication:BMI 36.0-36.9,adult Start:18-Jul-2021 Instruction Type:Provider Instructions for Treatment How to Access Health Informa tion Online using Patient Portal and 3rd [employer] Apps Indication:BMI 36.0-36.9,adult Start:18-Jul-2021 Instruction Type:Patient Education Patient Instructions Indication:Non-smoker Start:09-May-2021 Instruction Type:Provider Instructions for Treatment How to Access Health Informa tion Online using Patient Portal and 3rd [employer] Apps Indication:Non-smoker Start:09-May-2021 Instruction Type:Patient Education How to Access Health Informa tion Online using Patient Portal and 3rd Republican Apps Indication:Non-smoker Start:17-Mar-2021 Instruction Type:Patient Education Patient Instructions Indication:Non-smoker Start:17-Mar-2021 Instruction Type:Provider Instructions for Treatment obesity counseling Indication:Obstructive sleep apnea, adult Start:01-Oct-2020 Instruction Type:Provider Instructions for Treatment cardiovascular counseling Indication:Atrial fibrillation Start:01-Oct-2020 Instruction Type:Provider Instructions for Treatment How to Access Health Informa tion Online using Patient Portal and 3rd Republican Apps Indication:Non-smoker Start:01-Oct-2020 Instruction Type:Patient Education Patient Instructions Indication:Non-smoker Start:01-Oct-2020 Instruction Type:Provider Instructions for Treatment Patient Instructions Indication:Non-smoker Start:16-Sep-2020 Instruction Type:Provider Instructions for Treatment How to Access Health Informa tion Online using Patient Portal and 3rd [employer] Apps Indication:Non-smoker Start:16-Sep-2020 Instruction Type:Patient Education How [...] tion Online using Patient Portal and 3rd Republican Apps Indication:Urinary frequency Start:08-Apr-2022 Instruction Type:Patient Education Patient Instructions Indication:Non-smoker Start:08-Oct-2021 Instruction Type:Provider Instructions for Treatment How to Access Health Informa tion Online using Patient Portal and 3rd Republican Apps Indication:Non-smoker Start:08-Oct-2021 Instruction Type:Patient Education Patient Instructions Indication:BMI 36.0-36.9,adult Start:18-Jul-2021 Instruction Type:Provider Instructions for Treatment How to Access Health Informa tion Online using Patient Portal and 3rd [employer] Apps Indication:BMI 36.0-36.9,adult Start:18-Jul-2021 Instruction Type:Patient Education Patient Instructions Indication:Non-smoker Start:09-May-2021 Instruction Type:Provider Instructions for Treatment How to Access Health Informa tion Online using Patient Portal and 3rd [employer] Apps Indication:Non-smoker Start:09-May-2021 Instruction Type:Patient Education How to Access Health Informa tion Online using Patient Portal and 3rd [employer] Apps Indication:Non-smoker Start:17-Mar-2021 Instruction Type:Patient Education Patient Instructions Indication:Non-smoker Start:17-Mar-2021 Instruction Type:Provider Instructions for Treatment obesity counseling Indication:Obstructive sleep apnea, adult Start:01-Oct-2020 Instruction Type:Provider Instructions for Treatment cardiovascular counseling Indication:Atrial fibrillation Start:01-Oct-2020 Instruction Type:Provider Instructions for Treatment How to Access Health Informa tion Online using Patient Portal and 3rd [employer] Apps Indication:Non-smoker Start:01-Oct-2020 Instruction Type:Patient Education Patient Instructions Indication:Non-smoker Start:01-Oct-2020 Instruction Type:Provider Instructions for Treatment Patient Instructions Indication:Non-smoker Start:16-Sep-2020 Instruction Type:Provider Instructions for Treatment How to Access Health Informa tion Online using Patient Portal and 3rd [employer] Apps Indication:Non-smoker Start:16-Sep-2020 Instruction Type:Patient Education How [...] Informa tion Online using Patient Portal and [employer] Apps Indication:Non-smoker Start:20-Apr-2022 Instruction Type:Patient Education Patient Instructions Indication:Urinary frequency Start:08-Apr-2022 Instruction Type:Provider Instructions for Treatment How to Access Health Informa tion Online using Patient Portal and [employer] Apps Indication:Urinary frequency Start:08-Apr-2022 Instruction Type:Patient Education Patient Instructions Indication:Non-smoker Start:08-Oct-2021 Instruction Type:Provider Instructions for Treatment How to Access Health Informa tion Online using Patient Portal and [employer] Apps Indication:Non-smoker Start:08-Oct-2021 Instruction Type:Patient Education Patient Instructions Indication:BMI 36.0-36.9,adult Start:18-Jul-2021 Instruction Type:Provider Instructions for Treatment How to Access Health Informa tion Online using Patient Portal and [employer] Apps Indication:BMI 36.0-36.9,adult Start:18-Jul-2021 Instruction Type:Patient Education Patient Instructions Indication:Non-smoker Start:09-May-2021 Instruction Type:Provider Instructions for Treatment How to Access Health Informa tion Online using Patient Portal and [employer] Apps Indication:Non-smoker Start:09-May-2021 Instruction Type:Patient Education How to Access Health Informa tion Online using Patient Portal and 3[employer] Apps Indication:Non-smoker Start:17-Mar-2021 Instruction Type:Patient Education Patient Instructions Indication:Non-smoker Start:17-Mar-2021 Instruction Type:Provider Instructions for Treatment obesity counseling Indication:Obstructive sleep apnea, adult Start:01-Oct-2020 Instruction Type:Provider Instructions for Treatment cardiovascular counseling Indication:Atrial fibrillation Start:01-Oct-2020 Instruction Type:Provider Instructions for Treatment How to Access Health Informa tion Online using Patient Portal and 3[employer] Apps Indication:Non-smoker Start:01-Oct-2020 Instruction Type:Patient Education Patient Instructions Indication:Non-smoker Start:01-Oct-2020 Instruction Type:Provider Instructions for Treatment Patient Instructions Indication:Non-smoker Start:16-Sep-2020 Instruction Type:Provider Instructions for Treatment How to Access Health Informa tion Online using Patient Portal and 3rd [employer] Apps Indication:Non-smoker Start:16-Sep-2020 Instruction Type:Patient Education How [...] Informa tion Online using Patient Portal and [employer] Apps Indication:Non-smoker Start:20-Apr-2022 Instruction Type:Patient Education Patient Instructions Indication:Urinary frequency Start:08-Apr-2022 Instruction Type:Provider Instructions for Treatment How to Access Health Informa tion Online using Patient Portal and [employer] Apps Indication:Urinary frequency Start:08-Apr-2022 Instruction Type:Patient Education Patient Instructions Indication:Non-smoker Start:08-Oct-2021 Instruction Type:Provider Instructions for Treatment How to Access Health Informa tion Online using Patient Portal and [employer] Apps Indication:Non-smoker Start:08-Oct-2021 Instruction Type:Patient Education Patient Instructions Indication:BMI 36.0-36.9,adult Start:18-Jul-2021 Instruction Type:Provider Instructions for Treatment How to Access Health Informa tion Online using Patient Portal and [employer] Apps Indication:BMI 36.0-36.9,adult Start:18-Jul-2021 Instruction Type:Patient Education Patient Instructions Indication:Non-smoker Start:09-May-2021 Instruction Type:Provider Instructions for Treatment How to Access Health Informa tion Online using Patient Portal and [employer] Apps Indication:Non-smoker Start:09-May-2021 Instruction Type:Patient Education How to Access Health Informa tion Online using Patient Portal and [employer] Apps Indication:Non-smoker Start:17-Mar-2021 Instruction Type:Patient Education Patient Instructions Indication:Non-smoker Start:17-Mar-2021 Instruction Type:Provider Instructions for Treatment obesity counseling Indication:Obstructive sleep apnea, adult Start:01-Oct-2020 Instruction Type:Provider Instructions for Treatment cardiovascular counseling Indication:Atrial fibrillation Start:01-Oct-2020 Instruction Type:Provider Instructions for Treatment How to Access Health Informa tion Online using Patient Portal and [employer] Apps Indication:Non-smoker Start:01-Oct-2020 Instruction Type:Patient Education Patient Instructions Indication:Non-smoker Start:01-Oct-2020 Instruction Type:Provider Instructions for Treatment Patient Instructions Indication:Non-smoker Start:16-Sep-2020 Instruction Type:Provider Instructions for Treatment How to Access Health Informa tion Online using Patient Portal and [employer] Apps Indication:Non-smoker Start:16-Sep-2020 Instruction Type:Patient Education How [...] Informa tion Online using Patient Portal and [employer] Apps Indication:Non-smoker Start:20-Apr-2022 Instruction Type:Patient Education Patient Instructions Indication:Urinary frequency Start:08-Apr-2022 Instruction Type:Provider Instructions for Treatment How to Access Health Informa tion Online using Patient Portal and [employer] Apps Indication:Urinary frequency Start:08-Apr-2022 Instruction Type:Patient Education Patient Instructions Indication:Non-smoker Start:08-Oct-2021 Instruction Type:Provider Instructions for Treatment How to Access Health Informa tion Online using Patient Portal and [employer] Apps Indication:Non-smoker Start:08-Oct-2021 Instruction Type:Patient Education Patient Instructions Indication:BMI 36.0-36.9,adult Start:18-Jul-2021 Instruction Type:Provider Instructions for Treatment How to Access Health Informa tion Online using Patient Portal and [employer] Apps Indication:BMI 36.0-36.9,adult Start:18-Jul-2021 Instruction Type:Patient Education Patient Instructions Indication:Non-smoker Start:09-May-2021 Instruction Type:Provider Instructions for Treatment How to Access Health Informa tion Online using Patient Portal and [employer] Apps Indication:Non-smoker Start:09-May-2021 Instruction Type:Patient Education How to Access Health Informa tion Online using Patient Portal and [employer] Apps Indication:Non-smoker Start:17-Mar-2021 Instruction Type:Patient Education Patient Instructions Indication:Non-smoker Start:17-Mar-2021 Instruction Type:Provider Instructions for Treatment obesity counseling Indication:Obstructive sleep apnea, adult Start:01-Oct-2020 Instruction Type:Provider Instructions for Treatment cardiovascular counseling Indication:Atrial fibrillation Start:01-Oct-2020 Instruction Type:Provider Instructions for Treatment How to Access Health Informa tion Online using Patient Portal and [employer] Apps Indication:Non-smoker Start:01-Oct-2020 Instruction Type:Patient Education Patient Instructions Indication:Non-smoker Start:01-Oct-2020 Instruction Type:Provider Instructions for Treatment Patient Instructions Indication:Non-smoker Start:16-Sep-2020 Instruction Type:Provider Instructions for Treatment How to Access Health Informa tion Online using Patient Portal and [employer] Apps Indication:Non-smoker Start:16-Sep-2020 Instruction Type:Patient Education How [...] tion Online using Patient Portal and 3rd Republican Apps Indication:Non-smoker Start:26-Oct-2022 Instruction Type:Patient Education Patient Instructions Indication:Non-smoker Start:20-Apr-2022 Instruction Type:Provider Instructions for Treatment How to Access Health Informa tion Online using Patient Portal and [employer] Apps Indication:Non-smoker Start:20-Apr-2022 Instruction Type:Patient Education Patient Instructions Indication:Urinary frequency Start:08-Apr-2022 Instruction Type:Provider Instructions for Treatment How to Access Health Informa tion Online using Patient Portal and [employer] Apps Indication:Urinary frequency Start:08-Apr-2022 Instruction Type:Patient Education Patient Instructions Indication:Non-smoker Start:08-Oct-2021 Instruction Type:Provider Instructions for Treatment How to Access Health Informa tion Online using Patient Portal and [employer] Apps Indication:Non-smoker Start:08-Oct-2021 Instruction Type:Patient Education Patient Instructions Indication:BMI 36.0-36.9,adult Start:18-Jul-2021 Instruction Type:Provider Instructions for Treatment How to Access Health Informa tion Online using Patient Portal and 3[employer] Apps Indication:BMI 36.0-36.9,adult Start:18-Jul-2021 Instruction Type:Patient Education Patient Instructions Indication:Non-smoker Start:09-May-2021 Instruction Type:Provider Instructions for Treatment How to Access Health Informa tion Online using Patient Portal and [employer] Apps Indication:Non-smoker Start:09-May-2021 Instruction Type:Patient Education How to Access Health Informa tion Online using Patient Portal and [employer] Apps Indication:Non-smoker Start:17-Mar-2021 Instruction Type:Patient Education Patient Instructions Indication:Non-smoker Start:17-Mar-2021 Instruction Type:Provider Instructions for Treatment obesity counseling Indication:Obstructive sleep apnea, adult Start:01-Oct-2020 Instruction Type:Provider Instructions for Treatment cardiovascular counseling Indication:Atrial fibrillation Start:01-Oct-2020 Instruction Type:Provider Instructions for Treatment How to Access Health Informa tion Online using Patient Portal and [employer] Apps Indication:Non-smoker Start:01-Oct-2020 Instruction Type:Patient Education Patient Instructions Indication:Non-smoker Start:01-Oct-2020 Instruction Type:Provider Instructions for Treatment Patient Instructions Indication:Non-smoker Start:16-Sep-2020 Instruction Type:Provider Instructions for Treatment How to Access Health Informa tion Online using Patient Portal and [employer] Apps Indication:Non-smoker Start:16-Sep-2020 Instruction Type:Patient Education How [...] Informa tion Online using Patient Portal and [employer] Apps Indication:Non-smoker Start:26-Oct-2022 Instruction Type:Patient Education Patient Instructions Indication:Non-smoker Start:20-Apr-2022 Instruction Type:Provider Instructions for Treatment How to Access Health Informa tion Online using Patient Portal and [employer] Apps Indication:Non-smoker Start:20-Apr-2022 Instruction Type:Patient Education Patient Instructions Indication:Urinary frequency Start:08-Apr-2022 Instruction Type:Provider Instructions for Treatment How to Access Health Informa tion Online using Patient Portal and [employer] Apps Indication:Urinary frequency Start:08-Apr-2022 Instruction Type:Patient Education Patient Instructions Indication:Non-smoker Start:08-Oct-2021 Instruction Type:Provider Instructions for Treatment How to Access Health Informa tion Online using Patient Portal and [employer] Apps Indication:Non-smoker Start:08-Oct-2021 Instruction Type:Patient Education Patient Instructions Indication:BMI 36.0-36.9,adult Start:18-Jul-2021 Instruction Type:Provider Instructions for Treatment How to Access Health Informa tion Online using Patient Portal and [employer] Apps Indication:BMI 36.0-36.9,adult Start:18-Jul-2021 Instruction Type:Patient Education Patient Instructions Indication:Non-smoker Start:09-May-2021 Instruction Type:Provider Instructions for Treatment How to Access Health Informa tion Online using Patient Portal and [employer] Apps Indication:Non-smoker Start:09-May-2021 Instruction Type:Patient Education How to Access Health Informa tion Online using Patient Portal and [employer] Apps Indication:Non-smoker Start:17-Mar-2021 Instruction Type:Patient Education Patient Instructions Indication:Non-smoker Start:17-Mar-2021 Instruction Type:Provider Instructions for Treatment obesity counseling Indication:Obstructive sleep apnea, adult Start:01-Oct-2020 Instruction Type:Provider Instructions for Treatment cardiovascular counseling Indication:Atrial fibrillation Start:01-Oct-2020 Instruction Type:Provider Instructions for Treatment How to Access Health Informa tion Online using Patient Portal and [employer] Apps Indication:Non-smoker Start:01-Oct-2020 Instruction Type:Patient Education Patient Instructions Indication:Non-smoker Start:01-Oct-2020 Instruction Type:Provider Instructions for Treatment Patient Instructions Indication:Non-smoker Start:16-Sep-2020 Instruction Type:Provider Instructions for Treatment How to Access Health Informa tion Online using Patient Portal and [employer] Apps Indication:Non-smoker Start:16-Sep-2020 Instruction Type:Patient Education How [...] Informa tion Online using Patient Portal and [employer] Apps Indication:Non-smoker Start:16-Sep-2020 Instruction Type:Patient Education How [...] tion Online using Patient Portal and [employer] Apps Indication:Non-smoker Start:01-Oct-2020 Instruction Type:Patient Education Patient Instructions Indication:Non-smoker Start:01-Oct-2020 Instruction Type:Provider Instructions for Treatment Patient Instructions Indication:Non-smoker Start:16-Sep-2020 Instruction Type:Provider Instructions for Treatment How to Access Health Informa tion Online using Patient Portal and [employer] Apps Indication:Non-smoker Start:16-Sep-2020 Instruction Type:Patient Education How [...] screening modality Procedures Mammography Screening Stepan Bilateral Ophelia Fonseca MD [address] [address] Phone: [phone] Referral ID Status Reason Start Date Expiration Date Visits Requested Visits Authorized [id number] Authorized Patient Preference 3 09/01/2024 1 1 Additional Source Comments INFORMATION SOURCE (unrecogn ized section and content) DATE CREATED AUTHOR AUTHOR'S ORGANIZ ATION 03/11/2018 [facility] DATE CREATED AUTHOR AUTHOR'S ORGANIZ ATION 03/16/2018 [facility] DATE CREATED AUTHOR AUTHOR'S ORGANIZ ATION 10/26/2022 [facility] DATE CREATED AUTHOR AUTHOR'S ORGANIZ ATION 09/05/2023 [facility] Reason for Visit (unrecogniz ed section and [...] BE BASED ON THE PRIMARY CLINICAL RECORDS. [facility]. provides no warranty or guarantee of the accuracy or completeness of information in this document.
== END | disposition home or self-care (01) ==
LOC: SL 10:25
PROVIDERS: PCP Family Medicine; Visit Provider Nurse Practitioner Acute Care
DX: G47.33 Obstructive sleep apnea (adult) (pediatric) (principal)

== ENCOUNTER → 2023-12-02 | Outpatient (CLI) | payer MEDICARE, SELFPAY ==
--- NOTE | 2023-12-02 13:56 | ECHOD_ITS ---
Reason For Study: AORTIC STENOSIS Procedure This was a 2D Doppler, Color Flow transthoracic echocardiogram. Exam performed in department. Left Ventricle Normal LV size. Mild concentric left ventricular hypertrophy. Left ventricular systolic function is normal. Stage 2 diastolic dysfunction. No regional wall motion abnormalities noted. Right Ventricle Normal RV size. Normal systolic function. Atria Normal left atrium. Normal right atrium. Mitral Valve Normal mitral valve. Tricuspid Valve Normal tricuspid valve. Mild to moderate (1-2+) tricuspid valve insufficiency. Pulmonary artery systolic pressure is 50 mmHg. Aortic Valve Trisinus/trileaflet aortic valve. Moderate focal aortic valve calcification. Peak aortic valve gradient 56 mmHg. Mean aortic valve gradient 33 mmHg. Moderate aortic stenosis. Great Vessels Mild to moderately dilated aortic root. The pulmonary artery is normal size. Inferior vena cava collapse with respiration. Pericardium/Pleural No pericardial effusion. MMode/2D Measurements & Calculations LVIDd: 4.4 cm IVSd: 1.3 cm LVOT diam: 2.0 cm LVIDs: 2.9 cm LVPWd: 1.1 cm LVOT area: 3.0 cm2 RVDd: 3.7 cm FS: 34.8 % Ao root diam: 3.4 cm LAV(MOD-bp): 56.5 ml LVAd ap4: 25.5 cm2 LAV(MOD-bp) Indexed: 27.5 ml/m2 LVLd ap4: 8.0 cm LAV(MOD-sp2): 55.0 ml EDV(MOD-sp4): 65.9 ml LAV(MOD-sp4): 53.6 ml EDV(sp4-el): 69.2 ml LVAs ap4: 13.2 cm2 LVLs ap4: 6.2 cm ESV(MOD-sp4): 24.2 ml ESV(sp4-el): 23.8 ml EF(MOD-sp4): 63.3 % EF(sp4-el): 65.6 % SV(MOD-sp4): 41.7 ml SV(sp4-el): 45.4 ml LA A4 area: 18.9 cm2 LA dimension(2D): 3.3 cm RA A4 area: 12.9 cm2 TAPSE: 2.0 cm Time Measurements MV dec time: 0.22 sec Doppler Measurements & Calculations MV E max darius: 89.8 cm/sec Lat Peak E' Darius: 13.3 cm/sec Med Peak E' Darius: 8.6 cm/sec MV A max darius: 50.0 cm/sec E/E' lat: 6.7 E/E' med: 10.4 MV E/A: 1.8 Ao V2 max: 372.9 cm/sec LV V1 max: 108.8 cm/sec SV(LVOT): 81.7 ml Ao max P.6 mmHg LV V1 max P.7 mmHg Ao V2 mean: 270.3 cm/sec LV V1 mean P.9 mmHg Ao mean P.5 mmHg LV V1 mean: 79.6 cm/sec Ao V2 VTI: 89.2 cm LV V1 VTI: 27.1 cm AV (velocity ratio): 0.30 CELESTE(I,D): 0.92 cm2 CELESTE(V,D): 0.88 cm2 PA V2 max: 106.4 cm/sec PI end-d darius: 109.3 cm/sec TR max darius: 337.4 cm/sec TR max P.5 mmHg ECHO/Echo Complete Interpretation Summary Normal LV size. Left ventricular systolic function is normal. Stage 2 diastolic dysfunction. Mean aortic valve gradient 33 mmHg. Moderate aortic stenosis. Moderate focal aortic valve calcification. Compared to the previous echocardiogram the gradients are somewhat increased th e ejection fraction remains preserved. Ordering Physician: Rachna De La Fuente Referring Physician: OPHELIA FONSECA Performed By: Yazmin Delgado RDCS
== END | disposition home or self-care (01) ==
PROVIDERS: PCP Family Medicine; Referring Provider Nurse Practitioner Gerontology; Visit Provider Nurse Practitioner Gerontology
DX: I35.0 Nonrheumatic aortic (valve) stenosis (principal)
CPT/HCPCS: 93306

== ENCOUNTER 2023-12-12 11:41 | Emergency (ER) | payer MEDICARE, SELFPAY ==
[2023-12-12] VITALS (8 sets, daily range): BP systolic 121–140; BP diastolic 60–90; PULSE 61–87; RESP 16–18; TEMP 36.4–36.7; O2SAT 93–97; BMI 39.8
--- NOTE | 2023-12-12 12:01 | EKG12_ITS ---
Test Reason : SOB Blood Pressure : / mmHG Vent. Rate : 065 BPM Atrial Rate : 065 BPM P-R Int : 208 ms QRS Dur : 088 ms QT Int : 418 ms P-R-T Axes : 040 -02 019 degrees QTc Int : 434 ms Sinus rhythm with Premature supraventricular complexes Minimal voltage criteria for LVH, may be normal variant ( R in aVL ) Borderline ECG Confirmed by Han Natarajan ([id number]), editor index KISHA PAREDES ([id number]) on 12/14/2023 9:09:05 AM Referred By: KURTIS/SKYLER Confirmed By:Han Natarajan
--- NOTE | 2023-12-12 12:02 | EDS_ITS ---
HPI History of Present Illness Chief Complaint: Shortness of Breath Informant: patient and spouse/S.O. Narrative Narrative: Patient has chronic lung disease, she states pulmonary hypertension and scar tissue but never been diagnosed with pulmonary fibrosis according to her, saying that since yesterday she has been dyspneic at rest. It has been the case all morning as well, mild. She has chronic dyspnea with exertion usually not with rest. She has chronic orthopnea that is no different, but she is able to lie down with her CPAP at night for her sleep apnea and sleep okay. This morning within the last couple hours, she developed discomfort across her chest and her upper back that is pleuritic, feels like my lungs hurt. It is more in her upper back and not as much in her chest now. She denies any new leg edema. No fevers or chills. She has been coughing more since yesterday, she does have a chronic cough, nonproductive and no hemoptysis. She is on Eliquis for history of A-fib she had a maze procedure, she usually feels it when she goes into A- fib, she felt a couple of palpitations yesterday but otherwise she does not feel like she is in A-fib now. [facility] Medical History Atherosclerotic heart disease of [place] coronary artery without angina pectoris Bicuspid aortic valve Bipolar disorder CAD (coronary artery disease) Essential hypertension GERD (gastroesophageal reflux disease) Hyperlipidemia Long-term use of high-risk medication Non-rheumatic aortic stenosis Non-ST elevation (NSTEMI) myocardial infarction (~08/21/11) Obstructive sleep apnea Palpitation Persistent atrial fibrillation Secondary pulmonary arterial hypertension Home Medications lamotrigine 200 mg tablet 200 mg PO DAILY 12/17/14 [History Last Taken Unknown] trazodone 100 mg tablet 200 mg PO DAILY 10/18/17 [History Last Taken Unknown] sertraline 100 mg tablet 100 mg PO BID 10/19/17 [History Last Taken Unknown] venlafaxine 37.5 mg tablet,extended release 24 hr 37.5 mg PO DAILY 10/27/18 [History Last Taken Unknown] multivitamin 1 tab PO DAILY 06/05/19 [History Last Taken Unknown] cholecalciferol (vitamin D3) 125 mcg (5,000 unit) tablet 5,000 unit PO DAILY 04/04/21 [History Last Taken Unknown] coenzyme Q10 200 mg capsule 200 mg PO DAILY 04/04/21 [History Last Taken Unk nown] apixaban 5 mg tablet (Eliquis) 5 mg PO BID #180 tabs 12/11/22 [Rx Last Taken Unknown] ezetimibe 10 mg tablet (Zetia) 10 mg PO QDAY #90 tabs 02/04/23 [Rx Last Taken Unknown] hydrochlorothiazide 25 mg tablet 25 mg PO QDAY #90 tabs 04/12/23 [Rx Last Taken Unknown] metoprolol tartrate 100 mg tablet 100 mg PO BID #180 tabs 04/12/23 [Rx Last Taken Unknown] potassium chloride 10 mEq tablet,extended release(part/cryst) 10 meq PO DAILY #90 tabs 04/12/23 [Rx Last Taken Unknown] ramipril 10 mg capsule 10 mg PO QDAY #90 caps 04/12/23 [Rx Last Taken Unknown] gemfibrozil 600 mg tablet 600 mg PO BID #180 tabs 10/04/23 [Rx Last Taken Unknown] verapamil 120 mg tablet,extended release 120 mg PO BID #180 tabs 10/04/23 [Rx Last Taken Unknown] albuterol sulfate 90 mcg/actuation aerosol inhaler (Ventolin HFA) 1 - 2 puff inhalation Q4H PRN PRN Wheezing ##1 12/12/23 [Rx Last Taken Unknown] Allergy/AdvReac Type Severity Reaction Status Date / Time No Known Allergies Allergy Verified 12/12/23 11:41 Family History Brother CAD (coronary artery disease) from [place] age 52 Father Dementia Mother Cancer Surgical History H/O discectomy History of maze procedure (~10/22/04) history of pulmonary vein isolation (~10/11/06) History of right and left heart catheterization (~03/05/17) Social History household members: spouse Smoking Status: Former smoker how long ago did patient quit smokin second hand exposure: No alcohol intake: never substance use type: does not use caffeine: No what type of physical activity do you participate in: none ROS ROS ED Constitutional Constitutional ED: Denies chills or fever(s) Eyes Eyes: Denies change in vision or diplopia ENT ENT ED: Denies rhinorrhea or sore throat Cardiovascular Cardiovascular: Reports chest pain and orthopnea; Denies leg edema or palpitations Respiratory/Chest Respiratory/Chest: Reports cough, dyspnea, dyspnea on exertion and orthopnea Gastrointestinal Gastrointestinal: Denies abdominal pain, diarrhea, nausea or vomiting Genitourinary Genitourinary ED: Denies dysuria or hematuria Musculoskeletal Musculoskeletal: Reports back pain; Denies neck pain Integumentary Denies abscess or rash Neurologic Neurologic: Denies headache(s), paresthesias or weakness Psychiatric Psychiatric: Denies anxiety or suicidal thoughts EXAM Physical Exam Const Vital Signs: 12/12/23 11:42 12/12/23 11:50 12/12/23 12:01 Temperature 97.6 F L Temperature Source Temporal Pulse Rate 66 Respiratory Rate 18 Respiratory Effort Normal Respiratory Depth Normal Respiratory Pattern Normal Blood Pressure 140/90 H Blood Pressure Mean 106 Pulse Ox 93 Oxygen Delivery Method Room Air Room Air Room Air 12/12/23 12:38 12/12/23 12:18 12/12/23 13:00 Temperature 98.1 F Temperature Source Temporal Pulse Rate 61 65 Respiratory Rate 17 18 Respiratory Effort Respiratory Depth Respiratory Pattern Normal Blood Pressure 121/77 H Blood Pressure Mean 91 Pulse Ox 96 96 Oxygen Delivery Method Room Air Room Air 12/12/23 14:00 Temperature Temperature Source Pulse Rate 75 Respiratory Rate 16 Respiratory Effort Respiratory Depth Respiratory Pattern Blood Pressure 123/68 H Blood Pressure Mean 86 Pulse Ox 93 Oxygen Delivery Method Room Air Positive well nourished and well developed General Appearance ED: well developed and NAD HEENT Reports moist mucous membranes normocephalic and atraumatic Eyes PERRL and EOMs intact bilaterally Neck full ROM, supple and no JVD Resp normal respiratory effort and clear to auscultation bilaterally Cardio regular rate, regular rhythm and no murmurs Rate: Negative for tachycardic GI non-tender and non-distended Auscultation: normoactive bowel sounds Palpation: soft Back/Spine no CVA tenderness General Back: other FROM Extremity normal to inspection General Extremety ED: Yes edema; Negative for pulses abnormal or tenderness General Extremity: edema bilateral lower extremity Details: trace (bilat, symmetric, pretibial); Negative for pulses abnormal Neuro oriented x3, CN's II-XII intact bilaterally and no sensory deficits noted Sensorium / Orientation: awake and alert Motor Exam: strength 5/5 throughout Skin no rashes or lesions noted and no wounds MDM MDM MDM Narrative Medical decision making narrative: Differential here includes infection such as pneumonia, cardiopulmonary etiologies otherwise, reactive airway disease which she does not have a known history of, pulmonary fibrosis. Chest x-ray 2 views my interpretation normal, radiology is in agreement. Labs show mild prerenal azotemia but otherwise unremarkable with a normal troponin, her EKG is noted below, according to my interpretation, there is no comparison but there is no acute injury pattern. After do nebulizer treatment she is feeling much better. Oxygen saturations are good. Her vital signs are otherwise normal. She then tells me that the scar tissue that she was told about was while they were trying to perform her cardiac ablation through the right side of her chest, they told her there was scar tissue. This does not sound like pulmonary fibrosis to me. She told me that she had pulmonary function test just recently, she had them in June. I reviewed her records here with pulmonary, and this showed a mild restrictive pattern no obstructive pattern. She has an echocardiogram showing moderate aortic stenosis, which I do not think is related to the symptoms. At this time she feels like she is at baseline and doing well. Do not think steroids are necessarily going to be helpful here so I am going to prescribe her an albuterol inhaler and advised that she follow-up with her beef lugger she is comfortable with that plan we discussed reasons to return. With regards to pulmonary embolism, certainly that is in the differential here but much less likely in her since she is anticoagulated already and improved with albuterol, and does not have tachycardia. Lab Data Attestation: I reviewed the patient's lab results. Labs: Laboratory Results - last 24 hr 12/12/23 12:15 WBC 9.9 RBC 4.26 Hgb 12.4 Hct 38.3 MCV 89.9 MCH 29.1 MCHC 32.4 RDW Std Deviation 43.6 RDW Coeff of Alex 13.3 Plt Count 194 MPV 9.3 Immature Gran % (Auto) 0.700 Neut % (Auto) 76.2 H Lymph % (Auto) 16.7 L [place] % (Auto) 4.9 Eos % (Auto) 1.0 Baso % (Auto) 0.5 Absolute Neuts (auto) 7.5 Absolute Lymphs (auto) 1.65 Nucleated RBC % 0 Sodium 141 Potassium 3.7 Chloride 106 Carbon Dioxide 29.0 Anion Gap 6 BUN 21 H Creatinine 0.92 Estim Creat Clear Calc 69.21 Est GFR (MDRD) Af Amer 77 Est GFR (MDRD) Non-Af 64 BUN/Creatinine Ratio 22.7 H Glucose 98 Calcium 9.4 Troponin I High Sens 11 Radiography Diagnostic Testing: Clinical Impression(s) from Imaging Studies Chest X-Ray 12/12/23 12:50 IMPRESSION: No acute cardiopulmonary abnormality. Electronically Signed: Raghav Freire MD at 13:03 EDT , Rhythm Strip Rhythm Strip: Sinus Rhythm Rate: 65 Ectopy: PAC(s) EKG Initial EKG: Attestation: I personally reviewed and interpreted this EKG as follows: Interpretation: Sinus Rhythm and No Acute Injury Pattern Comments: pac. LVH via aVL voltage crit. Prior EKG tracings: not available for review Discharge Plan Triage Chief Complaint: Shortness of Breath ED Provider: Jason Myles Dx/Rx/DC Orders Clinical Impression: Anticoagulated, Acute dyspnea, Chest pain, unspecified Instructions: ED Dyspnea Prescriptions: New albuterol sulfate [Ventolin HFA] 90 mcg/actuation HFA aerosol inhaler 1 - 2 puff inhalation Q4H PRN PRN (Reason: Wheezing) Qty: 1 0RF No Action sertraline 100 mg tablet 100 mg PO BID venlafaxine 37.5 mg tablet extended release 24hr 37.5 mg PO DAILY multivitamin Tablet 1 tab PO DAILY cholecalciferol (vitamin D3) 125 mcg (5,000 unit) tablet 5,000 unit PO DAILY coenzyme Q10 200 mg capsule 200 mg PO DAILY lamotrigine 200 MG tablet 200 mg PO DAILY trazodone 100 MG tablet 200 mg PO DAILY Eliquis 5 mg tablet 5 mg PO BID Qty: 180 4RF ezetimibe [Zetia] 10 mg tablet 10 mg PO QDAY Qty: 90 3RF ramipril 10 mg capsule 10 mg PO QDAY Qty: 90 4RF hydrochlorothiazide 25 mg tablet 25 mg PO QDAY Qty: 90 3RF metoprolol tartrate 100 mg tablet 100 mg PO BID Qty: 180 3RF potassium chloride 10 mEq tablet,ER particles/crystals 10 meq PO DAILY Qty: 90 3RF gemfibrozil 600 mg tablet 600 mg PO BID Qty: 180 3RF verapamil 120 mg tablet extended release 120 mg PO BID Qty: 180 3RF Primary Care Provider: OPHELIA FONSECA Referrals: Ernesto Webster MD [Med Staff - Active Staff] - (As scheduled or sooner if your symptoms or not resolving within 3 days or so.) OPHELIA FONSECA MD [Primary Care Provider] - Disposition Disposition: Home, Self Care
[2023-12-12] MEDS: Ipratropium/Albuterol Sulfate 3 ML AMPUL.NEB INHALATION (12:17)
[2023-12-12 12:28] LABS: Absolute Lymphocyte Count 1.65 X10^3/uL (0.83-4.51); Absolute Neutrophil Count 7.5 X10^3/uL (2.0-7.7); Basophil# 0.05 X10^3/uL; Basophil% 0.5 % (0-1); Hematocrit 38.3 % (37-47); Hemoglobin 12.4 g/dL (12.0-15.0); Lymphocyte # 1.65 X10^3/ul (0.83-4.51); Lymphocyte % 16.7 % (19-41); Mean Corp Hgb Conc 32.4 g/dL (32-36); Mean Corpuscular Hgb 29.1 pg (27.0-32.0); Mean Corpuscular Volume 89.9 fL (81-99); Mean Platelet Vol. 9.3 fl (6.2-12.0); Monocyte# 0.48 X10^3/uL; Monocyte% 4.9 % (0-10); NRBC Flagged by Analyzer 0 % (0-5); Neutrophil # 7.51 X10^3/uL (2.7-7.7); Neutrophil % 76.2 % (47-70); Platelet Count 194 K/mm3 (150-450); RBC Distribution Width CV 13.3 % (11.6-14.6); RBC Distribution Width SD 43.6 fl (35.1-43.9); Red Blood Count 4.26 M/mm3 (4.2-5.4); White Blood Count 9.9 K/mm3 (4.4-11.0)
[2023-12-12 12:45] LABS: Anion Gap 6 (5-15); BUN 21 mg/dL (7-18); BUN/Creat Ratio 22.7 RATIO (10-20); Calcium,Total 9.4 mg/dL (8.5-10.1); Chloride 106 mmol/L (98-107); Creatinine, Serum 0.92 mg/dL (0.55-1.02); EST Glomerular Filtration Rate 64 mL/min (>60); Est Glom Filt Rate - Afr Amer 77 mL/min (>60); Estimated Creatinine Clearance 69.21 ml/min; Glucose 98 mg/dL (74-106); Potassium 3.7 mmol/L (3.5-5.1); Sodium Level 141 mmol/L (136-145); Troponin-I HS 11 pg/mL (3.0-54.0)
--- NOTE | 2023-12-12 12:50 | RAD_ITS ---
EXAM: XR CHEST, 2 VIEWS CLINICAL INDICATION: sob, cp TECHNIQUE: Frontal and lateral views of the chest. COMPARISON: No relevant prior studies available. FINDINGS: LUNGS AND PLEURAL SPACES: Normal. No consolidation or edema. No pneumothorax. No effusion. HEART: Normal heart size. MEDIASTINUM: No mediastinal or hilar mass. BONES/JOINTS: Prominent bony spurring of the humeral head noted bilaterally. UPPER ABDOMEN: Elevation of the right hemidiaphragm. RAD/Chest PA and Lateral IMPRESSION: No acute cardiopulmonary abnormality. Electronically Signed: Raghav Freire MD at 13:03 EDT ,
== END 2023-12-12 15:29 | disposition home or self-care (01) ==
PROVIDERS: Emergency Provider Emergency Medicine; PCP Family Medicine; Visit Provider Emergency Medicine
DX: R06.02 Shortness of breath (principal); I27.20 Pulmonary hypertension, unspecified; F31.9 Bipolar disorder, unspecified; I48.19 Other persistent atrial fibrillation; Z87.891 Personal history of nicotine dependence; G47.30 Sleep apnea, unspecified; R07.9 Chest pain, unspecified; Z79.01 Long term (current) use of anticoagulants; Z99.89 Dependence on other enabling machines and devices; I25.10 Atherosclerotic heart disease of native coronary artery without angina pectoris; I10 Essential (primary) hypertension; E78.5 Hyperlipidemia, unspecified; I25.2 Old myocardial infarction; Z79.899 Other long term (current) drug therapy
CPT/HCPCS: 71046; 80048; 84484; 85025; 87631; 93005; 94640; 99284

== ENCOUNTER → 2024-02-07 | Outpatient (CLI) | payer MEDICARE, SELFPAY ==
--- NOTE | 2024-02-07 14:35 | BI_ITS ---
MAMMOGRAPHY - BILATERAL SCREENING 3-D TOMOSYNTHESIS REASON FOR EXAM: Female, 69 years old. SCREENING PERTINENT HISTORY: No significant family history. TECHNIQUE: 2-D mammograms and 3-D Tomosynthesis of the breast (s) were performed. CAD was performed. COMPARISON: 10/16/2020 FINDINGS: The breast composition is heterogeneously dense that can obscure small breast masses. Scattered benign calcifications are seen. No dense spiculated masses or suspicious microcalcifications are identified. No architectural distortion is identified. There is no skin thickening or retraction. There has been no significant change since the prior study. BI/SCRN MAMM (CAD)W/JESSICA BILAT IMPRESSION: No mammographic signs of malignancy. Routine yearly mammograms recommended. ASSESSMENT CATEGORY: BIRADS Category 1: Negative. A letter regarding these results will be sent to the patient by the facility within 30 days. FOLLOW UP RECOMMENDATION: Yearly follow up mammogram recommended. (A) Approximately 10% of breast cancers are not detected by mammography. A normal mammogram should not delay biopsy of a clinically suspicious abnormality. Electronically Signed: Rui Barrow MD at 23:57 EDT ,
== END | disposition home or self-care (01) ==
LOC: OPBI 14:34
PROVIDERS: PCP Family Medicine; Referring Provider Family Medicine; Visit Provider Family Medicine
DX: Z12.31 Encounter for screening mammogram for malignant neoplasm of breast (principal)
CPT/HCPCS: 77063; 77067

== ENCOUNTER 2024-04-30 04:16 | Inpatient (IN) | payer MEDICARE, SELFPAY ==
[2024-04-30] VITALS (15 sets, daily range): BP systolic 118–169; BP diastolic 64–94; PULSE 62–76; RESP 12–28; TEMP 36.1–36.9; O2SAT 88–98; BMI 39.4
--- NOTE | 2024-04-30 04:29 | ED.VIS.DYS ---
HPI History of Present Illness Chief Complaint: Shortness of Breath [facility] Medical History Atherosclerotic heart disease of [place] coronary artery without angina pectoris Bicuspid aortic valve Bipolar disorder CAD (coronary artery disease) Essential hypertension GERD (gastroesophageal reflux disease) Hyperlipidemia Long-term use of high-risk medication Non-rheumatic aortic stenosis Non-ST elevation (NSTEMI) myocardial infarction (~08/21/11) Obstructive sleep apnea Palpitation Persistent atrial fibrillation Secondary pulmonary arterial hypertension Home Medications ?Medication ?Instructions ?Recorded ?Last Taken ?Type lamotrigine 200 mg tablet 200 mg PO DAILY 12/17/14 Unknown History trazodone 100 mg tablet 200 mg PO DAILY 10/18/17 Unknown History sertraline 100 mg tablet 100 mg PO BID 10/19/17 Unknown History venlafaxine 37.5 mg 37.5 mg PO DAILY 10/27/18 Unknown History tablet,extended release 24 hr multivitamin 1 tab PO DAILY 06/05/19 Unknown History cholecalciferol (vitamin D3) 125 5,000 unit PO DAILY 04/04/21 Unknown History mcg (5,000 unit) tablet coenzyme Q10 200 mg capsule 200 mg PO DAILY 04/04/21 Unknown History hydrochlorothiazide 25 mg tablet 25 mg PO QDAY #90 tabs 04/12/23 Unknown Rx metoprolol tartrate 100 mg tablet 100 mg PO BID #180 tabs 04/12/23 Unknown Rx potassium chloride 10 mEq 10 meq PO DAILY #90 tabs 04/12/23 Unknown Rx tablet,extended release(part/cryst) ramipril 10 mg capsule 10 mg PO QDAY #90 caps 04/12/23 Unknown Rx gemfibrozil 600 mg tablet 600 mg PO BID #180 tabs 10/04/23 Unknown Rx verapamil 120 mg tablet,extended 120 mg PO BID #180 tabs 10/04/23 Unknown Rx release albuterol sulfate 90 mcg/actuation 1 - 2 puff inhalation Q4H PRN PRN 12/12/23 Unknown Rx aerosol inhaler (Ventolin HFA) Wheezing ##1 apixaban 5 mg tablet (Eliquis) 5 mg PO BID #180 tabs 01/05/24 Unknown Rx ezetimibe 10 mg tablet (Zetia) 10 mg PO QDAY #90 tabs 03/01/24 Unknown Rx Allergy/AdvReac Type Severity Reaction Status Date / Time No Known Allergies Allergy Verified 04/30/24 04:20 Family History (Reviewed 01/04/24 @ 13:35 by Rachna De La Fuente IMPLEMENTATION PROJECT MANAGER, IMPLEMENTATION PROJECT MANAGER-C) Brother CAD (coronary artery disease) from [place] age 52 Father Dementia Mother Cancer Surgical History H/O discectomy History of maze procedure (~10/22/04) history of pulmonary vein isolation (~10/11/06) History of right and left heart catheterization (~03/05/17) Social History (Reviewed 01/04/24 @ 13:35 by Rachna De La Fuente IMPLEMENTATION PROJECT MANAGER, IMPLEMENTATION PROJECT MANAGER-C) household members: spouse Smoking Status: Former smoker how long ago did patient quit smokin second hand exposure: No alcohol intake: never substance use type: does not use caffeine: No what type of physical activity do you participate in: none EXAM Physical Exam Const Vital Signs: 04/30/24 04:18 04/30/24 04:21 04/30/24 04:22 Temperature 98.4 F Temperature Source Oral Pulse Rate 73 Respiratory Rate 26 H Respiratory Effort Short of Breath Respiratory Depth Shallow Respiratory Pattern Tachypnea Blood Pressure 169/81 H Blood Pressure Mean 110 Pulse Ox 95 95 Oxygen Delivery Method Room Air Room Air Nasal Cannula Oxygen Flow Rate (L/min) 87 2 Fraction of Inspired Oxygen (FIO2) 04/30/24 05:02 04/30/24 05:08 04/30/24 05:17 Temperature Temperature Source Pulse Rate 64 65 Respiratory Rate 28 H 24 H Respiratory Effort Respiratory Depth Respiratory Pattern Tachypnea Blood Pressure 152/91 H Blood Pressure Mean 111 Pulse Ox 97 95 Oxygen Delivery Method Nasal Cannula Room Air Oxygen Flow Rate (L/min) 2 Fraction of Inspired Oxygen (FIO2) 30 04/30/24 06:00 04/30/24 06:58 Temperature Temperature Source Pulse Rate 62 73 Respiratory Rate 20 H 23 H Respiratory Effort Respiratory Depth Respiratory Pattern Blood Pressure 161/85 H 124/88 H Blood Pressure Mean 110 100 Pulse Ox 94 94 Oxygen Delivery Method Nasal Cannula Oxygen Flow Rate (L/min) 2 Fraction of Inspired Oxygen (FIO2) MDM MDM MDM Narrative Medical decision making narrative: HISTORY OF PRESENT ILLNESS: 69-year-old female presents with dyspnea. Notes that started yesterday, it was worse this morning. Notes patient was 87% on room air and started on a new 2 L oxygen requirement. No she has BiPAP at night notes this improves her symptoms slightly before she came into the ED. She presented today because of chest discomfort and shortness of breath. Notes she was recently off her Eliquis secondary to a minor outpatient procedure. Denies any bleeding diathesis. Denies leg swelling. Denies cough fever chills. The patient denies recent surgery in the last 4 weeks or immobilization in the last 3 days, denies previous diagnosis of DVT or PE, hemoptysis, unilateral leg swelling or malignancy with treatment the last 6 months or palliative. No estrogen use noted. REVIEW OF SYSTEMS: Pertinent positives: Shortness of breath, chest pain Pertinent negatives: Leg swelling, bleeding diathesis PHYSICAL EXAM: Nursing triage notes reviewed, Vital signs reviewed Constitutional: please see mdm HENT: MMM Eyes: Pupils equal round and reactive to light, Extraocular muscles intact Neck: No stridor, no JVD, full neck ROM Lungs: Poor air movement, prolonged expiratory phase, no obvious wheezing or rales, increased work of breathing, accessory muscle use, conversational dyspnea Heart: Regular rate and rhythm, No murmurs, No rubs and No gallops, 2+ distal pulses (radial, femoral, posterior tibial) in all extremities Abdomen: Soft, there is no tenderness, rigidity, rebound or guarding, no obvious peritoneal signs, no palpable pulsatile abdominal masses, no auscultated abdominal bruit : No CVAT Extremities: No edema Neuro: No focal neurological deficits, cranial nerves II through XII intact, 5/5 strength in all extremities. Intact sensation to light touch in all extremities, 2+ reflexes bilateral patella tendons. Normal gait. No ataxia. Skin: No rash or lesions noted MEDICAL DECISION MAKING: Chief Complaint: Chest pain, dyspnea External records reviewed: Imaging reviewed: Echocardiogram from 2023 shows normal LV function Factors affecting care: n type 2 diabetes, hypertension, hyperlipidemia, atrial fibrillation (on Eliquis), bipolar disorder, atrial hypertension, GERD, CAD Social determinants of health: Denies smoking History obtained from others: Patient's Consults: none [facility] Narrative: The patient was initially hypertensive with a blood pressure 169/81, tachypneic with respirate of 26, saturating 95% on 2 L nasal cannula I considered the following differential diagnosis: COVID, flu, pneumonia, PE, ACS, arrhythmia, electrolyte disturbance, anemia, CHF, COPD/asthma I obtained a broad lab and imaging workup to further elucidate the etiology of the patient's complaint. Initial exam had increased work of breathing, conversational dyspnea and tachypnea with belly breathing and accessory muscle use. Given signs of respiratory distress I started patient on BiPAP immediately. I obtained a CT of the chest rule out PE. ALL IMAGES (IF OBTAINED) HAVE BEEN PERSONALLY REVIEWED AND INTERPRETED BY MYSELF. EKG with normal sinus rhythm, normal axis, normal intervals, no STEMI Chest x-ray shows increased pulmonary vas congestion compared to prior x-ray concerning for CHF, no obvious pneumonia. Awaiting radiologist read. Radiologist notes no acute process. CBC with leukocytosis suggestive of systemic inflammation, mild anemia, no thrombocytopenia BMP without significant electrolyte disturbances, no signs of metabolic acidosis or Endorgan hypoperfusion, no FRANCIS[place] High-sensitivity troponin is negative, no evidence of myocardial ischemia BNP elevated consistent with volume overload, increased ventricular stretch CT of the chest was read reviewed by myself showed no obvious pulmonary embolus however I am not gotten the final read from radiology. Awaiting radiology read. Patient was weaned off BiPAP and placed on nasal cannula 2 L. Patient ambulated without nasal cannula per her request since desaturated to 85% with noted perioral cyanosis. I suspect patient suffering from CHF exacerbation but I am holding off on Lasix at this time as to not decrease the patient's preload if she has a PE. Signed out to a.m. physician Dr. Hodge pending CT scan. Did discuss case hospitalist on-call Dr. Ashley who agreed admit the patient to PCU plus or minus heparin once CT results are back. The patient and/or family, caregivers express understanding. The patient and/or family, caregivers agrees with the plan. Shared decision making: I will have a discussion with the patient and or visitors regarding risk/benefits of further testing or admission. They will be made aware of of the risk/benefits inherent in this decision they will be given the opportunity to voice understanding. Total critical care time today provided was at least 35 minutes. This excludes separately billable procedures. Critical care time (if documented) is secondary to the patient having high probability of clinically significant/life threatening deterioration in the patient's condition which required my urgent intervention. Impression: 1. Dyspnea 2. Tachypnea 3. Hypoxia Dispo: Admit This note was generated with Dragon dictation software. It may contain incorrect words, spelling, and punctuation that were not noted in review of the chart prior to signing. Lab Data Labs: Laboratory Results - last 24 hr 04/30/24 05:00 WBC 14.1 H RBC 4.06 L Hgb 11.9 L Hct 36.4 L MCV 89.7 MCH 29.3 MCHC 32.7 RDW Std Deviation 44.1 H RDW Coeff of Alex 13.4 Plt Count 179 MPV 9.2 Immature Gran % (Auto) 0.900 Neut % (Auto) 85.4 H Lymph % (Auto) 7.[address] % (Auto) 6.0 Eos % (Auto) 0.1 Baso % (Auto) 0.1 Absolute Neuts (auto) 12.0 H Absolute Lymphs (auto) 1.06 Nucleated RBC % 0 Sodium 139 Potassium 3.9 Chloride 108 H Carbon Dioxide 25.0 Anion Gap 6 BUN 18 Creatinine 0.76 Est GFR (MDRD) Af Amer 96 Est GFR (MDRD) Non-Af 80 BUN/Creatinine Ratio 23.6 H Glucose 125 H Calcium 9.1 Troponin I High Sens 12 B-Natriuretic Peptide 454.9 H Radiography Diagnostic Testing: Clinical Impression(s) from Imaging Studies Chest X-Ray 04/30/24 05:25 IMPRESSION: No evidence of active intrathoracic disease. Electronically Signed: Roselia Philippe MD at 5:54 EDT Reading Location ID and State: [address] [place] [address] Tel , Service support , Discharge Plan Triage Chief Complaint: Shortness of Breath ED Provider: Noe Olivares Dx/Rx/DC Orders Prescriptions: No Action sertraline 100 mg tablet 100 mg PO BID venlafaxine 37.5 mg tablet extended release 24hr 37.5 mg PO DAILY multivitamin Tablet 1 tab PO DAILY cholecalciferol (vitamin D3) 125 mcg (5,000 unit) tablet 5,000 unit PO DAILY coenzyme Q10 200 mg capsule 200 mg PO DAILY Eliquis 5 mg tablet 5 mg PO BID Qty: 180 4RF lamotrigine 200 MG tablet 200 mg PO DAILY trazodone 100 MG tablet 200 mg PO DAILY albuterol sulfate [Ventolin HFA] 90 mcg/actuation HFA aerosol inhaler 1 - 2 puff inhalation Q4H PRN PRN (Reason: Wheezing) Qty: 1 0RF ramipril 10 mg capsule 10 mg PO QDAY Qty: 90 4RF hydrochlorothiazide 25 mg tablet 25 mg PO QDAY Qty: 90 3RF metoprolol tartrate 100 mg tablet 100 mg PO BID Qty: 180 3RF potassium chloride 10 mEq tablet,ER particles/crystals 10 meq PO DAILY Qty: 90 3RF gemfibrozil 600 mg tablet 600 mg PO BID Qty: 180 3RF verapamil 120 mg tablet extended release 120 mg PO BID Qty: 180 3RF ezetimibe [Zetia] 10 mg tablet 10 mg PO QDAY Qty: 90 3RF Primary Care Provider: OPHELIA FONSECA Referrals: OPHELIA FONSECA MD [Primary Care Provider] - Print Language: Libyan
--- NOTE | 2024-04-30 04:53 | EKG12_ITS ---
Test Reason : SOB Blood Pressure : / mmHG Vent. Rate : 072 BPM Atrial Rate : 079 BPM P-R Int : 194 ms QRS Dur : 086 ms QT Int : 394 ms P-R-T Axes : 072 018 030 degrees QTc Int : 431 ms Sinus rhythm with marked sinus arrhythmia Nonspecific ST abnormality Abnormal ECG Confirmed by MADDI MURRAY, MAGO ([id number]), video editor KISHA PAREDES ([id number]) on 05/01/2024 9:45:05 AM Referred By: DIONE Confirmed By:MAGO LINDA MD
[2024-04-30 05:08] LABS: Absolute Lymphocyte Count 1.06 X10^3/uL (0.83-4.51); Basophil# 0.02 X10^3/uL; Basophil% 0.1 % (0-1); Eosinophil# 0.02 X10^3/uL; Eosinophils% 0.1 % (0-5); Hematocrit 36.4 % (37-47); Hemoglobin 11.9 g/dL (12.0-15.0); Lymphocyte # 1.06 X10^3/ul (0.83-4.51); Lymphocyte % 7.5 % (19-41); Mean Corp Hgb Conc 32.7 g/dL (32-36); Mean Corpuscular Hgb 29.3 pg (27.0-32.0); Mean Corpuscular Volume 89.7 fL (81-99); Mean Platelet Vol. 9.2 fl (6.2-12.0); Monocyte# 0.84 X10^3/uL; NRBC Flagged by Analyzer 0 % (0-5); Neutrophil % 85.4 % (47-70); Platelet Count 179 K/mm3 (150-450); RBC Distribution Width CV 13.4 % (11.6-14.6); RBC Distribution Width SD 44.1 fl (35.1-43.9); Red Blood Count 4.06 M/mm3 (4.2-5.4); White Blood Count 14.1 K/mm3 (4.4-11.0)
[2024-04-30 05:25] LABS: BNP,B-Type NATRIURETIC PEPTIDE 454.9 pg/mL (0-100)
--- NOTE | 2024-04-30 05:25 | RAD_ITS ---
INDICATION: SOB EXAMINATION/TECHNIQUE: X-RAY - XR Chest 1 View AP portable. 5:24 AM COMPARISON: 12/12/2023 FINDINGS: LINES/DEVICES: None. LUNGS: No consolidation. Mildly elevated right hemidiaphragm, unchanged. No pneumothorax. MEDIASTINUM: Aorta is atherosclerotic. CARDIAC SIL[place]ETTE: Not enlarged. BONES AND SOFT TISSUES: No acute abnormalities. RAD/Chest 1 View (Portable) IMPRESSION: No evidence of active intrathoracic disease. Electronically Signed: Roselia Philippe MD at 5:54 EDT ,
[2024-04-30 05:27] LABS: Anion Gap 6 (5-15); BUN 18 mg/dL (7-18); BUN/Creat Ratio 23.6 RATIO (10-20); Calcium,Total 9.1 mg/dL (8.5-10.1); Chloride 108 mmol/L (98-107); Creatinine, Serum 0.76 mg/dL (0.55-1.02); EST Glomerular Filtration Rate 80 mL/min (>60); Est Glom Filt Rate - Afr Amer 96 mL/min (>60); Glucose 125 mg/dL (74-106); Potassium 3.9 mmol/L (3.5-5.1); Sodium Level 139 mmol/L (136-145); Troponin-I HS 12 pg/mL (3.0-54.0)
--- NOTE | 2024-04-30 05:56 | CT_ITS ---
STUDY: CTA CHEST REASON FOR EXAM: Female, 69 years old. hypoxia, SOB r/o PE RADIATION DOSAGE (If Supplied By Facility): CTDIvol = ( 12.66 ) mGy, DLP = ( 465.74 ) mGycm TECHNIQUE: The examination was performed with the intravenous administration of IV 100mL [id number]-370. Post-processing of the angiographic images was performed, with multiplanar reformation and 3D reconstruction. The protocol utilizes one or more of the following dose reduction techniques: automated exposure control, adjustment of mA and/or kV according to patient size,and/or use of iterative reconstruction technique. COMPARISON: Prior study dated: CT abdomen and pelvis 05/13/2022 FINDINGS: LUNGS: Mild hazy opacities throughout the lungs with septal thickening. No consolidation. Several small ill-defined nodular opacities bilaterally, largest on the right in the right lower lobe 0.5 cm, and largest left lower lobe 0.4 cm. Not present on the previous CT abdomen and pelvis. PLEURA: No pleural effusion. No pneumothorax. PULMONARY VESSELS: No pulmonary emboli identified. MEDIASTINUM: Several prominent lymph nodes in the mediastinum.. HEART: Not enlarged. AORTA/GREAT VESSELS: Thoracic aorta is normal caliber. Ascending aorta 3.9 cm maximal transverse diameter. No aneurysm or dissection. UPPER ABDOMEN: No acute findings. 2.8 cm low-attenuation structure in the right kidney upper pole is not completely characterized, cyst in this region on the prior CT abdomen and pelvis. Smaller lesions appear to be cysts. Small fat attenuation nodule in the left adrenal likely adenoma, no follow-up needed. BONES/SOFT TISSUES: No acute findings. OTHER: None. CT/CTA Chest W/WO Contrast IMPRESSION: No evidence of pulmonary emboli. Ectatic ascending aorta. No dissection. Mild pulmonary edema. Small bilateral pulmonary nodules possibly related to the edema, although nodules are suspected. New compared to the prior CT abdomen and pelvis 05/13/2022. Follow-up CT chest recommended in 4-6 weeks to assess for resolution. Right renal lesion partially included possibly complex cyst or cystic neoplasm. Follow-up imaging needed, CT abdomen and pelvis with IV contrast or MRI. Electronically Signed: Roselia Philippe MD at 7:25 EDT ,
--- NOTE | 2024-04-30 07:21 | PCM.HP.STD ---
HPI - General General Date of Admission: 04/30/24 Date of Service: 04/30/24 Chief Complaint: Sudden onset of shortness of breath started last night. HPI Narrative RIKY DILL, is a 69 F who came to ED with progressive worsening shortness of breath from last night sudden onset. She has isolated symptom of shortness of breath, dyspnea at rest felt like could not breathe. No cough, fever, sputum, hemoptysis, chest tightness/pain or pressure. She denies any leg swelling. In ED, she was found tachypneic, 87% on room air and required 2 L of oxygen but at home she does not use oxygen only BiPAP for obstructive sleep apnea and pulmonary hypertension Chest x-ray and CTPA was done which did not show pneumonia. EKG normal sinus rhythm with sinus arrhythmia. Patient is further admitted in PCU [facility] Medical History Atherosclerotic heart disease of [place] coronary artery without angina pectoris CAD (coronary artery disease) Essential hypertension Long-term use of high-risk medication Hyperlipidemia Palpitation Non-ST elevation (NSTEMI) myocardial infarction (~08/21/11) GERD (gastroesophageal reflux disease) Secondary pulmonary arterial hypertension Obstructive sleep apnea Non-rheumatic aortic stenosis Bipolar disorder Persistent atrial fibrillation Bicuspid aortic valve Home Medications ?Medication ?Instructions ?Recorded ?Last Taken ?Type lamotrigine 200 mg tablet 200 mg PO DAILY 12/17/14 04/29/24 History trazodone 100 mg tablet 200 mg PO DAILY 10/18/17 04/29/24 History sertraline 100 mg tablet 100 mg PO BID 10/19/17 04/29/24 History multivitamin 1 tab PO DAILY 06/05/19 04/29/24 History cholecalciferol (vitamin D3) 125 5,000 unit PO DAILY 04/04/21 04/29/24 History mcg (5,000 unit) tablet coenzyme Q10 200 mg capsule 200 mg PO DAILY 04/04/21 04/29/24 History hydrochlorothiazide 25 mg tablet 25 mg PO QDAY #90 tabs 04/12/23 04/29/24 Rx metoprolol tartrate 100 mg tablet 100 mg PO BID #180 tabs 04/12/23 04/29/24 Rx potassium chloride 10 mEq 10 meq PO DAILY #90 tabs 04/12/23 04/29/24 Rx tablet,extended release(part/cryst) ramipril 10 mg capsule 10 mg PO QDAY #90 caps 04/12/23 04/29/24 Rx gemfibrozil 600 mg tablet 600 mg PO BID #180 tabs 10/04/23 04/29/24 Rx verapamil 120 mg tablet,extended 120 mg PO BID #180 tabs 10/04/23 04/29/24 Rx release albuterol sulfate 90 mcg/actuation 1 - 2 puff inhalation Q4H PRN PRN 12/12/23 Unknown Rx aerosol inhaler (Ventolin HFA) Wheezing ##1 apixaban 5 mg tablet (Eliquis) 5 mg PO BID #180 tabs 01/05/24 04/29/24 Rx ezetimibe 10 mg tablet (Zetia) 10 mg PO QDAY #90 tabs 03/01/24 04/29/24 Rx venlafaxine 37.5 mg 37.5 mg PO DAILY 04/30/24 04/29/24 History capsule,extended release 24 hr Allergy/AdvReac Type Severity Reaction Status Date / Time No Known Allergies Allergy Verified 04/30/24 04:20 Family History Brother CAD (coronary artery disease) from [place] age 52 Father Dementia Mother Cancer Surgical History History of right and left heart catheterization (~03/05/17) H/O discectomy History of maze procedure (~10/22/04) history of pulmonary vein isolation (~10/11/06) Social History household members: spouse housing: house number of children: 3 current occupational status: retired Smoking Status: Former smoker how long ago did patient quit smokin second hand exposure: No alcohol intake: never substance use type: does not use caffeine: No what type of physical activity do you participate in: none ROS ROS Narrative Constitutional: Reports fatigue and weakness. No fever. HEENT: Reports systems reviewed and no addt'l complaints, except as documented Respiratory/Chest: As described in HPI CVS: No chest pain or pressure. Nonobstructive CAD. Gastrointestinal: Denies coffee ground emesis, hematemesis or vomiting Genitourinary: Denies burning urination or new urinary tract symptoms Musculoskeletal: Denies acute joint pain or limited range of motion. No acute injury Neurologic: Denies seizure-like symptoms. skin: No ulcer. No rash Endocrinology: Reports systems reviewed and no addt'l complaints, except as documented Hematologic/Lymphatic: Reports systems reviewed and no addt'l complaints, except as documented Rest 14 ROS are negative except as mentioned in HPI Vital Signs Vital Signs Vital Signs: 04/30/24 04:18 04/30/24 04:21 04/30/24 04:22 Temperature 98.4 F Temperature Source Oral Pulse Rate 73 Respiratory Rate 26 H Respiratory Effort Short of Breath Respiratory Depth Shallow Respiratory Pattern Tachypnea Blood Pressure 169/81 H Blood Pressure Mean 110 Pulse Ox 95 95 Oxygen Delivery Method Room Air Room Air Nasal Cannula Oxygen Flow Rate (L/min) 87 2 Fraction of Inspired Oxygen (FIO2) 04/30/24 05:02 04/30/24 05:08 04/30/24 05:17 Temperature Temperature Source Pulse Rate 64 65 Respiratory Rate 28 H 24 H Respiratory Effort Respiratory Depth Respiratory Pattern Tachypnea Blood Pressure 152/91 H Blood Pressure Mean 111 Pulse Ox 97 95 Oxygen Delivery Method Nasal Cannula Room Air Oxygen Flow Rate (L/min) 2 Fraction of Inspired Oxygen (FIO2) 30 04/30/24 06:00 04/30/24 06:58 Temperature Temperature Source Pulse Rate 62 73 Respiratory Rate 20 H 23 H Respiratory Effort Respiratory Depth Respiratory Pattern Blood Pressure 161/85 H 124/88 H Blood Pressure Mean 110 100 Pulse Ox 94 94 Oxygen Delivery Method Nasal Cannula Oxygen Flow Rate (L/min) 2 Fraction of Inspired Oxygen (FIO2) Physical Exam Narrative General: Alert, Oriented x3, Cooperative. BMI 39.4 kg/m? HEENT: Atraumatic, PERRLA, EOMI, Normocephalic Oral: Oral mucosa moist. No Gingival or Mucosal Lesions/ Ulcerations Neck: Supple, No JVD, Negative Carotid Bruits Chest wall/Lungs: Air entry diminished in bilateral lung bases. No crepitation/rhonchi/wheezing Cardiovascular: Sinus rhyth ,ejection systolic murmur over right second ICS. P2 loud Abdomen: Bowel Sounds Present, Soft, Non Tender, Non-Distended : No dysuria. No renal angle tenderness. No suprapubic tenderness. Extremities: mild subtle pretibial pitting bilateral edema, Capillary Refill Less than 3 Seconds Skin: No rashes, No breakdown Musculoskeletal: No Tenderness to Palpation of Joints or Extremities Neurological: Cranial nerves II-XII grossly intact, DTR 2+/4. No acute focal neurological deficit. Psych/Mental Status: Flat affect. Results Lab / Micro Data 04/30/24 05:00 04/30/24 05:00 Labs: Laboratory Results - last 24 hr 04/30/24 05:00: WBC 14.1 H, RBC 4.06 L, Hgb 11.9 L, Hct 36.4 L, MCV 89.7, MCH 29.3, MCHC 32.7, RDW Std Deviation 44.1 H, RDW Coeff of Alex 13.4, Plt Count 179, MPV 9.2, Immature Gran % (Auto) 0.900, Neut % (Auto) 85.4 H, Lymph % (Auto) 7.5 L, Elk % (Auto) 6.0, Eos % (Auto) 0.1, Baso % (Auto) 0.1, Absolute Neuts (auto) 12.0 H, Absolute Lymphs (auto) 1.06, Nucleated RBC % 0, Sodium 139, Potassium 3.9, Chloride 108 H, Carbon Dioxide 25.0, Anion Gap 6, BUN 18, Creatinine 0.76, Est GFR (MDRD) Af Amer 96, Est GFR (MDRD) Non-Af 80, BUN/Creatinine Ratio 23.6 H, Glucose 125 H, Calcium 9.1, Troponin I High Sens 12, B-Natriuretic Peptide 454.9 H Micro: Microbiology 04/30/24 05:00 Mucosa - Nasopharyngeal SARS-CoV-2, Influenza & RSV (PCR) - Final Imaging Radiology Impression Chest X-Ray 04/30/24 05:25 IMPRESSION: No evidence of active intrathoracic disease. Electronically Signed: Roselia Philippe MD at 5:54 EDT , Assessment & Plan Assessment/Plan (1) FERNANDO (dyspnea on exertion): PLAN: Plan This 69-year-old female came to ED for shortness of breath, dyspnea at rest and mild hypoxia 1. Dyspnea at rest and mild hypoxia probably due to mild pulmonary edema from acute on chronic HFpEF, secondary pulmonary artery hypertension, and valvular heart disease and obstructive sleep apnea: First troponin negative. Second troponin ordered. BNP elevated Patient is being admitted in PCU. First he had a chest x-ray and then CTPA. It shows no evidence of pulmonary emboli, ectatic ascending aorta with no dissection, mild pulmonary edema. It also showed small bilateral pulmonary nodules probably edema and recommended repeat CT after 4 to 6 weeks to assess for resolution. Patient was given Lasix 40 mg ER even before ordering CTPA by me and she feels better. Continue furosemide 40 mg IV twice daily but changed to once daily from tomorrow a.m. 2. Valvular heart disease , nonobstructive CAD, paroxysmal A-fib: Functionally bicuspid aortic valve with moderate aortic stenosis, chronic HFpEF with stage II diastolic dysfunction, pulmonary artery hypertension Based on the echo of October 2021 and then November 2023 it seems patient is restricted, diffuse thickening, calcification and fusion of right and left coronary cusp resulting into congenital bicuspid aortic valve with moderate aortic stenosis. She follows in cardiology clinic with Rachna De La Fuente NP and was following Dr. Mg. As per last echo done recently in December 2023, EF 60% and patient has functionally bicuspid aortic valve with associated aortic root dilatation, 3.4 cm. Nonobstructive CAD. Currently in sinus rhythm. She had maze procedure in 2004 at [facility]. Hold HCTZ. Continue metoprolol, ramipril, verapamil and Eliquis for 3. Restrictive lung disease, severe obstructive sleep apnea and moderate secondary PAH on BiPAP: Continue BiPAP during nap at night. DuoNeb as needed. Patient follows in pulmonary clinic with Dr. Segal. She had PFT in June 2023 which shows mild restrictive ventilatory impairment with symmetric reduction in diffusion capacity. DuoNeb as needed. Incentive spirometry. 4. Other comorbidities include essential hypertension, dyslipidemia and bipolar disorder: Blood pressure was high 169/81 but most recent 142/71. Home medications continued. DVT prophylaxis, high risk: On Eliquis 5 mg twice daily continued. Living will/advanced directive/end of life care: Patient does not have living will or advanced directive. Her is next of kin. Does not have degrade power of commercial litigation attorney for health after discussion of benefits/risks procedures involved with full code, DNR CC arrest and DNR CC, the patient opted for full code. Patient does want artificial life support including intubation, tube feed, ventilator and/chest compression, central venous catheter, vasopressor and DC shock if needed Total time spent in [id number] encounter in discussion of advanced directive 17 minutes. Microbiology Past 72 Hours 04/30/24 05:00 Mucosa - Nasopharyngeal SARS-CoV-2, Influenza & RSV (PCR) - Final Laboratory Results 04/30/24 05:00: WBC 14.1 H, RBC 4.06 L, Hgb 11.9 L, Hct 36.4 L, MCV 89.7, MCH 29.3, MCHC 32.7, RDW Std Deviation 44.1 H, RDW Coeff of Alex 13.4, Plt Count 179, MPV 9.2, Immature Gran % (Auto) 0.900, Neut % (Auto) 85.4 H, Lymph % (Auto) 7.5 L, Elk % (Auto) 6.0, Eos % (Auto) 0.1, Baso % (Auto) 0.1, Absolute Neuts (auto) 12.0 H, Absolute Lymphs (auto) 1.06, Nucleated RBC % 0, Sodium 139, Potassium 3.9, Chloride 108 H, Carbon Dioxide 25.0, Anion Gap 6, BUN 18, Creatinine 0.76, Est GFR (MDRD) Af Amer 96, Est GFR (MDRD) Non-Af 80, BUN/Creatinine Ratio 23.6 H, Glucose 125 H, Calcium 9.1, Troponin I High Sens 12, B-Natriuretic Peptide 454.9 H Clinical Impression(s) from Imaging Studies Chest X-Ray 04/30/24 05:25 IMPRESSION: No evidence of active intrathoracic disease. Chest CTA 04/30/24 05:56 IMPRESSION: No evidence of pulmonary emboli. Ectatic ascending aorta. No dissection. Mild pulmonary edema. Small bilateral pulmonary nodules possibly related to the edema, although nodules are suspected. New compared to the prior CT abdomen and pelvis 05/13/2022. Follow-up CT chest recommended in 4-6 weeks to assess for resolution. Right renal lesion partially included possibly complex cyst or cystic neoplasm. Follow-up imaging needed, CT abdomen and pelvis with IV contrast or MRI. Charges/Coding Visit Charges Inpatient E&M: 58044 Init Hosp L3 Procedures Hospitalists Procedures: 95139 Advncd Care Plan 30 Min
[2024-04-30] MEDS: Furosemide 40 MG/4 ML Vial IV ×2 (07:40→17:01)
[2024-04-30 11:05] LABS: Troponin-I HS 18 pg/mL (3.0-54.0)
[2024-04-30] MEDS: Ezetimibe 10 MG Tablet PO (13:09)
[2024-04-30] MEDS: APIXABAN 5 MG TABLET PO ×2 (13:09→22:05)
[2024-04-30] MEDS: Acetaminophen 325 MG Tablet 650 MG PO (13:09)
[2024-04-30] MEDS: Potassium Chloride Oral Tablet 10 MEQ PO (13:58)
[2024-04-30] MEDS: Gemfibrozil 600 MG Tablet PO (17:01)
[2024-04-30] MEDS: 0.9% Saline Lock 10 ML Syringe IV ×2 (17:02→22:03)
[2024-04-30] MEDS: Verapamil SR 240 MG Tablet 120 MG PO (22:04)
[2024-04-30] MEDS: Metoprolol Tartrate 100 MG Tablet PO (22:05)
[2024-04-30] MEDS: Sertraline 100 MG Tablet PO (22:05)
[2024-05-01] VITALS (11 sets, daily range): BP systolic 114–150; BP diastolic 64–104; PULSE 57–73; RESP 12–25; TEMP 36–37.1; O2SAT 88–98
--- NOTE | 2024-05-01 04:15 | NURSING ---
Pt called out at this time d/t CP going on for half an hour. Rates sternal pain 8/10 with radiation to back. VSS. Called RT for EKG.
--- NOTE | 2024-05-01 04:16 | EKG12_ITS ---
Test Reason : CP Blood Pressure : / mmHG Vent. Rate : 065 BPM Atrial Rate : 065 BPM P-R Int : 206 ms QRS Dur : 084 ms QT Int : 446 ms P-R-T Axes : 050 -02 005 degrees QTc Int : 463 ms Normal sinus rhythm Minimal voltage criteria for LVH, may be normal variant ( R in aVL ) Nonspecific ST abnormality Abnormal ECG When compared with ECG of 30-APR-2024 04:24, MANUAL COMPARISON REQUIRED, DATA IS UNCONFIRMED Confirmed by MADDI MURRAY, MAGO ([id number]), material expeditor KISHA PAREDES ([id number]) on 05/01/2024 2:16:37 PM Referred By: JUVENAL Confirmed By:MAGO LINDA MD
[2024-05-01] MEDS: Gemfibrozil 600 MG Tablet PO ×2 (06:02→15:51)
[2024-05-01 07:11] LABS: Cholesterol 157 mg/dL (200); High Density Lipoprotein 71 mg/dL; Triglycerides 58 mg/dL; Very Low Density Lipoprotein 12 mg/dL (5-40)
[2024-05-01 09:18] LABS: Anion Gap 7 (5-15); BUN 18 mg/dL (7-18); BUN/Creat Ratio 20.7 RATIO (10-20); Calcium,Total 9.5 mg/dL (8.5-10.1); Chloride 103 mmol/L (98-107); Creatinine, Serum 0.87 mg/dL (0.55-1.02); EST Glomerular Filtration Rate 69 mL/min (>60); Est Glom Filt Rate - Afr Amer 83 mL/min (>60); Estimated Creatinine Clearance 71.78 ml/min; Glucose 146 mg/dL (74-106); Sodium Level 140 mmol/L (136-145)
[2024-05-01 09:27] LABS: Hematocrit 39.3 % (37-47); Hemoglobin 12.6 g/dL (12.0-15.0); Mean Corp Hgb Conc 32.1 g/dL (32-36); Mean Corpuscular Hgb 28.9 pg (27.0-32.0); Mean Corpuscular Volume 90.1 fL (81-99); Mean Platelet Vol. 9.8 fl (6.2-12.0); Platelet Count 218 K/mm3 (150-450); RBC Distribution Width CV 13.2 % (11.6-14.6); RBC Distribution Width SD 43.4 fl (35.1-43.9); Red Blood Count 4.36 M/mm3 (4.2-5.4); White Blood Count 12.3 K/mm3 (4.4-11.0)
[2024-05-01] MEDS: Metoprolol Tartrate 100 MG Tablet PO ×2 (10:01→20:37)
[2024-05-01] MEDS: APIXABAN 5 MG TABLET PO ×2 (10:01→20:37)
[2024-05-01] MEDS: Potassium Chloride Oral Tablet 10 MEQ PO (10:01)
[2024-05-01] MEDS: Venlafaxine XR 37.5 MG Capsule PO (10:01)
[2024-05-01] MEDS: Furosemide 40 MG/4 ML Vial IV (10:01)
[2024-05-01] MEDS: Verapamil SR 240 MG Tablet 120 MG PO ×2 (10:01→20:36)
[2024-05-01] MEDS: Ramipril 10 MG Capsule PO (10:01)
[2024-05-01] MEDS: lamoTRIgine 100 MG Tablet 200 MG PO (10:01)
[2024-05-01] MEDS: traZODone 100 MG Tablet 200 MG PO ×2 (10:01→21:37)
[2024-05-01] MEDS: Ezetimibe 10 MG Tablet PO (10:01)
[2024-05-01] MEDS: Sertraline 100 MG Tablet PO ×2 (10:01→20:36)
[2024-05-01] MEDS: Cholecalciferol (Vit D3) 125 MCG CAPSULE (5,000 UNITS) PO (10:02)
--- NOTE | 2024-05-01 10:55 | PCM.PN.HOSP ---
Reason for Visit Reason for Visit: Diagnoses Other forms of dyspnea (04/30/24) Subjective Subjective Saw patient at bedside this morning, present. Patient was sitting up comfortably in bed, conversing normally, in no acute distress. She was breathing comfortably on 2 L nasal cannula at rest. She had just done the oxygen qualification test and did need oxygen with ambulation to maintain appropriate oxygen saturations. She does not wear oxygen at home. She has had good urine output with the IV Lasix. She does feel better than yesterday but not back to her baseline yet. She does think that her shortness of breath with exertion specifically was getting worse over a period of several weeks as she thinks more about it. No other new concerns at this time. Objective Data Objective Data Vital Signs: Vital Signs Temp Pulse Resp BP Pulse Ox O2 Del Method O2 Flow Rate 98.7 F 72 16 114/64 98 Nasal Cannula 3 05/01/24 09:56 05/01/24 10:01 05/01/24 09:56 05/01/24 09:56 05/01/24 09:56 05/01/24 10:00 05/01/24 10:00 FiO2 30 05/01/24 00:42 Oxygen Flow Rate (L/min) [ 3 AMBULATING with Oxygen #2] Oxygen Flow Rate (L/min) [ 2 AMBULATING with Oxygen #1] Oxygen Flow Rate (L/min) [At 2 REST with Oxygen] Oxygen Flow Rate (L/min) 3 Oxygen Delivery Method Nasal Cannula Weight: 104.2 kg Body Mass Index (BMI) 39.4 Intake & Output: Intake and Output for Last 24 Hours 04/29/24 04/30/24 05/01/24 23:59 23:59 23:59 Intake Total 1360 / 1360 220 / 220 Balance 1360 / 1360 220 / 220 Lab / Micro Data 05/01/24 06:02 05/01/24 06:02 Labs: Laboratory Results - last 24 hr 04/30/24 10:30: Troponin I High Sens 18 05/01/24 06:02: WBC 12.3 H, RBC 4.36, Hgb 12.6, Hct 39.3, MCV 90.1, MCH 28.9, MCHC 32.1, RDW Std Deviation 43.4, RDW Coeff of Alex 13.2, Plt Count 218, MPV 9.8, Sodium 140, Potassium 3.0 L, Chloride 103, Carbon Dioxide 30.0, Anion Gap 7, BUN 18, Creatinine 0.87, Estim Creat Clear Calc 71.78, Est GFR (MDRD) Af Amer 83, Est GFR (MDRD) Non-Af 69, BUN/Creatinine Ratio 20.7 H, Glucose 146 H, Calcium 9.5, Triglycerides 58, Cholesterol 157, LDL Cholesterol 74, VLDL Cholesterol 12, HDL Cholesterol 71 Micro: Microbiology 04/30/24 05:00 Mucosa - Nasopharyngeal SARS-CoV-2, Influenza & RSV (PCR) - Final Physical Exam Const alert, oriented x3 and no apparent distress Constitutional Narrative: Pleasant elderly female, obese, sitting up comfortably in bed, conversing normally, in no acute distress. General Appearance: cooperative and comfortable HEENT normocephalic, head/scalp atraumatic, hearing grossly normal bilaterally, nasal mucous membranes and turbinates normal and moist oral mucous membranes Eyes PERRL, EOMs intact bilaterally and conjunctivae normal Neck full ROM Chest inspection of chest normal Resp normal respiratory effort and no use of accessory muscles Resp Narrative: Diminished breath sounds in bilateral lung bases with mild crackles noted. No wheezing noted. Breathing comfortably on 2 L nasal cannula at rest. Cardio regular rate, regular rhythm, no murmurs and peripheral pulses 2+ throughout GI normal to inspection, nondistended, normoactive bowel sounds, soft to palpation, non-tender and non-distended Back/Spine normal ROM Extremity normal to inspection and full ROM Extremity Narrative: Trace lower extremity edema noted. Skin no rashes or lesions noted Neuro moves all extremities and no focal motor deficits Speech: speech normal Psych mental status grossly normal Assessment & Plan Assessment/Plan (1) CHF exacerbation: PLAN: Plan Patient is a 69-year-old female who presented to [facility] ED on 04/30/2024 with worsening shortness of breath. 1. Acute on chronic HFpEF with mild hypoxia ? Presented with worsening dyspnea on exertion and mild hypoxia. CTA chest showed no PE but did show mild pulmonary edema. BNP 454, up from 85 last May. Last echo done on 12/02/2023 that showed normal EF but mild concentric LV hypertrophy, stage II diastolic dysfunction and pulmonary hypertension with pulmonary artery systolic pressure of 50 mmHg, and moderate aortic stenosis. Started on IV Lasix 40 mg twice daily on admit with good urine output. Oxygen qualification testing done on hospital day 2, patient still needing supplemental oxygen with ambulation and does not wear oxygen at home. We will continue IV diuresis through tomorrow morning and follow-up BMP; if showing signs of contraction, will transition to low-dose p.o. Lasix and repeat oxygen ambulatory testing. 2. History of restrictive lung disease with obesity, severe MEGHAN and moderate secondary pulmonary arterial hypertension ? Follows with outpatient pulmonology, last visit on 12/28/2023. Had PASP of 50 mmHg on echo in November as noted above, up from 35 mmHg the previous year. Patient was feeling much improved symptomatically on BiPAP at night at that time. There was concern she could need supplemental oxygen with ambulation then, though she completed pulmonary stress testing and did not need it. Continue home BiPAP at night. Continue albuterol inhaler as needed. 3. Paroxysmal A-fib s/p pulmonary vein isolation procedure, moderate aortic stenosis, nonobstructive CAD, hypertension, hyperlipidemia ? Follows with outpatient cardiology, last visit on 01/04/2024. Was noted to be doing well at that time, was in normal sinus rhythm, no medication changes were made. EKG on this admit showed normal sinus rhythm with no changes from previous. Continue home Eliquis, Zetia, gemfibrozil, Lopressor, ramipril and verapamil. 4. Bipolar disorder, insomnia ? Stable. Continue home venlafaxine, sertraline, lamotrigine and trazodone at night. DVT prophylaxis: Not indicated, on Eliquis CODE STATUS: Full code, unverified Expected disposition: Home, 1 to 2 days Total clinical time spent by myself addressing the patient's medical issues, reviewing all the data, and collaborating with patient's care team: 35 minutes. Charges/Coding Visit Charges Inpatient E&M: 91096 Subs Hosp L2
--- NOTE | 2024-05-01 11:30 | CASEMGMT ---
RAJANI BONILLA Face to Face with patient for initial transition planning/care coordination assessment. RN CM introduced self and role at [facility]. Patient lying in bed, alert and oriented. Patient willing to participate in assessment and is able to answer all questions appropriately. Care providers, pharmacy, and demographics verified. Strata: 2 PCP: Luzmaria Specialists: YAMILET, buckle stringer; Alfred Segal, nitro man; [facility] [place] Insurance: [employer] [facility] Prescription Benefit: yes Living Will/HPOA: none LNOK: Living Arrangements: Patient lives with in a single story home with 3 steps and railing to enter the home. Patient states she is independent at home. Transportation: self, DME/HHC: Patient states she has shower chair, grab bars, walker, bipap, and pulse ox at home. No previous HHC or SNF. Will monitor for home oxygen, prefers [employer]. Patient wishes to discharge home, denies need for home health at this time. Patient states he has no further needs or concerns at this time. CM to follow for discharge planning needs that may arise. Disposition Plan: Patient to discharge home with family support and follow-up plans in place. Tessa BARRERA, RN, CM
[2024-05-01] MEDS: Potassium Chloride Oral Tablet 20 MEQ 40 MEQ PO (12:11)
[2024-05-01] MEDS: 0.9% Saline Lock 10 ML Syringe IV (13:57)
[2024-05-01] MEDS: Furosemide 20 MG/2 ML VIAL IV (13:57)
[2024-05-02] VITALS (9 sets, daily range): BP systolic 106–108; BP diastolic 61–81; PULSE 60–70; RESP 12–18; TEMP 36.4–36.8; O2SAT 87–97
[2024-05-02] MEDS: Gemfibrozil 600 MG Tablet PO (06:12)
[2024-05-02] MEDS: Acetaminophen 325 MG Tablet 650 MG PO (06:14)
[2024-05-02 07:12] LABS: Anion Gap 4 (5-15); BUN 31 mg/dL (7-18); BUN/Creat Ratio 27.7 RATIO (10-20); Chloride 103 mmol/L (98-107); Creatinine, Serum 1.12 mg/dL (0.55-1.02); EST Glomerular Filtration Rate 51 mL/min (>60); Est Glom Filt Rate - Afr Amer 62 mL/min (>60); Estimated Creatinine Clearance 55.75 ml/min; Glucose 98 mg/dL (74-106); Potassium 3.9 mmol/L (3.5-5.1); Sodium Level 140 mmol/L (136-145)
[2024-05-02] MEDS: Venlafaxine XR 37.5 MG Capsule PO (09:55)
[2024-05-02] MEDS: APIXABAN 5 MG TABLET PO (09:55)
[2024-05-02] MEDS: Potassium Chloride Oral Tablet 10 MEQ PO (09:55)
[2024-05-02] MEDS: lamoTRIgine 100 MG Tablet 200 MG PO (09:56)
[2024-05-02] MEDS: Metoprolol Tartrate 100 MG Tablet PO (09:56)
[2024-05-02] MEDS: Ezetimibe 10 MG Tablet PO (09:56)
[2024-05-02] MEDS: Sertraline 100 MG Tablet PO (09:57)
[2024-05-02] MEDS: Verapamil SR 240 MG Tablet 120 MG PO (09:57)
[2024-05-02] MEDS: Cholecalciferol (Vit D3) 125 MCG CAPSULE (5,000 UNITS) PO (09:57)
--- NOTE | 2024-05-02 11:21 | PCM.DC.SUM ---
Providers Date of Admission: 04/30/24 Date of Discharge: 05/02/24 Primary Care Physician: OPHELIA FONSECA MD Reason For Visit: HYPOXIA, PAH Diagnosis Discharge Diagnosis (1) CHF exacerbation: Status: Chronic Code(s): I50.9 - Heart failure, unspecified (2) Elevated serum creatinine: Status: Acute Code(s): R79.89 - Other specified abnormal findings of blood chemistry Medications at Discharge Home Medications lamotrigine 200 mg tablet 200 mg PO DAILY seizures 12/17/14 trazodone 100 mg tablet 200 mg PO DAILY sleep 10/18/17 sertraline 100 mg tablet 100 mg PO BID mental health 10/19/17 multivitamin 1 tab PO DAILY vitamin 06/05/19 cholecalciferol (vitamin D3) 125 mcg (5,000 unit) tablet 5,000 unit PO DAILY vitamin 04/04/21 coenzyme Q10 200 mg capsule 200 mg PO DAILY supplement 04/04/21 metoprolol tartrate 100 mg tablet 100 mg PO BID blood pressure #180 tabs 04/12/23 potassium chloride 10 mEq tablet,extended release(part/cryst) 10 meq PO DAILY supplement #90 tabs 04/12/23 ramipril 10 mg capsule 10 mg PO QDAY blood pressure #90 caps 04/12/23 gemfibrozil 600 mg tablet 600 mg PO BID cholesterol #180 tabs 10/04/23 verapamil 120 mg tablet,extended release 120 mg PO BID blood pressure #180 tabs 10/04/23 albuterol sulfate 90 mcg/actuation aerosol inhaler (Ventolin HFA) 1 - 2 puff inhalation Q4H PRN PRN Wheezing ##1 12/12/23 apixaban 5 mg tablet (Eliquis) 5 mg PO BID blood thinner #180 tabs 01/05/24 ezetimibe 10 mg tablet (Zetia) 10 mg PO QDAY cholesterol #90 tabs 03/01/24 venlafaxine 37.5 mg capsule,extended release 24 hr 37.5 mg PO DAILY mental health 04/30/24 furosemide 20 mg tablet (Lasix) 20 mg PO DAILY 30 days #30 tabs 05/02/24 Hospital Course Operations None Procedures EKG and - (Chest x-ray, CTA chest) Summary of Care Provided Minutes Spent on Discharge: 35 Hospital Course: Patient is a 69-year-old female who presented to [facility] ED on 04/30/2024 with worsening shortness of breath. Hospital course as noted below. Discharged home with supplemental oxygen in stable condition on 05/02. 1. Acute on chronic HFpEF with hypoxia ? Presented with worsening dyspnea on exertion and hypoxia. CTA chest showed no PE but did show mild pulmonary edema. BNP 454, up from 85 last May. Last echo done on 12/02/2023 that showed normal EF but mild concentric LV hypertrophy, stage II diastolic dysfunction and pulmonary hypertension with pulmonary artery systolic pressure of 50 mmHg, and moderate aortic stenosis. Started on IV Lasix 40 mg twice daily on admit with good urine output. Oxygen qualification testing done on both hospital day 2 and 3 and patient required supplemental oxygen with ambulation. Had mild bump in creatinine consistent with contraction with IV Lasix on 05/02. Will start p.o. Lasix 20 mg daily on discharge, discontinued hydrochlorothiazide. Recommended that patient follow-up with cardiology and pulmonology in the office in the next few weeks. Repeat BMP in 5-7 days to monitor kidney function. 2. History of restrictive lung disease with obesity, severe MEGHAN and moderate secondary pulmonary arterial hypertension ? Follows with outpatient pulmonology, last visit on 12/28/2023. Had PASP of 50 mmHg on echo in November as noted above, up from 35 mmHg the previous year. Patient was feeling much improved symptomatically on BiPAP at night at that time. There was concern she could need supplemental oxygen with ambulation then; pulmonary stress testing was recommended but patient never completed it. Continue home BiPAP at night. Continue albuterol inhaler as needed. 3. Paroxysmal A-fib s/p pulmonary vein isolation procedure, moderate aortic stenosis, nonobstructive CAD, hypertension, hyperlipidemia ? Follows with outpatient cardiology, last visit on 01/04/2024. Was noted to be doing well at that time, was in normal sinus rhythm, no medication changes were made. EKG on this admit showed normal sinus rhythm with no changes from previous. Continue home Eliquis, Zetia, gemfibrozil, Lopressor, ramipril and verapamil. 4. Bipolar disorder, insomnia ? Stable. Continue home venlafaxine, sertraline, lamotrigine and trazodone at night. Total clinical time spent by myself addressing the patient's medical issues, reviewing all the data, and collaborating with patient's care team: 35 minutes. Physical Exam Const alert, oriented x3 and no apparent distress Constitutional Narrative: Pleasant elderly female, obese, sitting up comfortably in bed, conversing normally, in no acute distress. General Appearance: cooperative and comfortable HEENT normocephalic, head/scalp atraumatic, hearing grossly normal bilaterally, nasal mucous membranes and turbinates normal and moist oral mucous membranes Eyes PERRL, EOMs intact bilaterally and conjunctivae normal Neck full ROM Chest inspection of chest normal Resp normal respiratory effort and no use of accessory muscles Resp Narrative: Diminished breath sounds in bilateral lung bases but no crackles noted, improved. No wheezing noted. Breathing comfortably on 2 L nasal cannula at rest. Cardio regular rate, regular rhythm, no murmurs and peripheral pulses 2+ throughout GI normal to inspection, nondistended, normoactive bowel sounds, soft to palpation, non-tender and non-distended Back/Spine normal ROM Extremity normal to inspection and full ROM Extremity Narrative: Trace lower extremity edema noted. Stable. Skin no rashes or lesions noted Neuro moves all extremities and no focal motor deficits Speech: speech normal Psych mental status grossly normal Weight / BMI Weight Weight: 104.2 kg Body Mass Index (BMI) 39.4 ABG / Lab / Microbiology Data 05/01/24 06:02 05/02/24 06:25 Laboratory: Laboratory Results - last 24 hr 05/01/24 06:02: Magnesium 2.0 05/02/24 06:25: Sodium 140, Potassium 3.9, Chloride 103, Carbon Dioxide 33.0 H, Anion Gap 4 L, BUN 31 H, Creatinine 1.12 H, Estim Creat Clear Calc 55.75, Est GFR (MDRD) Af Amer 62, Est GFR (MDRD) Non-Af 51 L, BUN/Creatinine Ratio 27.7 H, Glucose 98, Calcium 10.0 Microbiology: Microbiology 04/30/24 05:00 Mucosa - Nasopharyngeal SARS-CoV-2, Influenza & RSV (PCR) - Final Radiography Diagnostic Testing: Radiology Impression Chest CTA 04/30/24 05:56 IMPRESSION: No evidence of pulmonary emboli. Ectatic ascending aorta. No dissection. Mild pulmonary edema. Small bilateral pulmonary nodules possibly related to the edema, although nodules are suspected. New compared to the prior CT abdomen and pelvis 05/13/2022. Follow-up CT chest recommended in 4-6 weeks to assess for resolution. Right renal lesion partially included possibly complex cyst or cystic neoplasm. Follow-up imaging needed, CT abdomen and pelvis with IV contrast or MRI. Electronically Signed: Roselia Philippe MD at 7:25 EDT , Meaningful Use Info Meaningful Use Meaningful Use Diagnoses (Choose all that apply): None applicable Ischemic Stroke Statin Dosing Therapy Reference: STATIN DOSE THERAPY REFERENCE: * Patients > 75 years receive moderate or high dose statin therapy. * Patients 75 years or YOUNGER should receive HIGH intensity statin dose unless contraindicated. You will be required to document reason for non-treatment if statin daily dose does not meet guidelines. HIGH DOSE STATIN THERAPY DAILY Atorvastatin > than or = to 40 mg Rosuvastatin > than or = to 20 mg Amlodipine + Atorvastatin > than or = to 2.5/40 mg Ezetimibe + Simvastatin 10/80 mg Simvastatin 80mg Discharge Plan Admission Admit Date/Time: 04/30/24 14:28 Primary Reason for Your Visit: Worsening shortness of breath Attending Provider: Chano Gaytan Primary Care Provider: OPHELIA FONSECA Consulting Providers: Mario Ashley Instructions Additional Instructions / Restrictions: Please start taking Lasix 20 mg daily going forward. Stop taking hydrochlorothiazide. Please have a repeat BMP drawn in 5 to 7 days to recheck your kidney function. Follow-up with your car clerk pullman as needed. Discharge Orders/Prescriptions Prescriptions: New furosemide [Lasix] 20 mg tablet 20 mg PO DAILY 30 Days Qty: 30 0RF Continued sertraline 100 mg tablet 100 mg PO BID multivitamin Tablet 1 tab PO DAILY cholecalciferol (vitamin D3) 125 mcg (5,000 unit) tablet 5,000 unit PO DAILY coenzyme Q10 200 mg capsule 200 mg PO DAILY Eliquis 5 mg tablet 5 mg PO BID Qty: 180 4RF lamotrigine 200 MG tablet 200 mg PO DAILY trazodone 100 MG tablet 200 mg PO DAILY albuterol sulfate [Ventolin HFA] 90 mcg/actuation HFA aerosol inhaler 1 - 2 puff inhalation Q4H PRN PRN (Reason: Wheezing) Qty: 1 0RF venlafaxine 37.5 mg capsule,extended release 24hr 37.5 mg PO DAILY ramipril 10 mg capsule 10 mg PO QDAY Qty: 90 4RF metoprolol tartrate 100 mg tablet 100 mg PO BID Qty: 180 3RF potassium chloride 10 mEq tablet,ER particles/crystals 10 meq PO DAILY Qty: 90 3RF gemfibrozil 600 mg tablet 600 mg PO BID Qty: 180 3RF verapamil 120 mg tablet extended release 120 mg PO BID Qty: 180 3RF ezetimibe [Zetia] 10 mg tablet 10 mg PO QDAY Qty: 90 3RF Discontinued hydrochlorothiazide 25 mg tablet 25 mg PO QDAY Qty: 90 3RF Other Ambulatory Orders: Basic Metabolic Profile (BMP) (Routine) Timeframe: 5 Days Facility: [facility] - Location: Laboratory Ordered By: Dr. Chano Gaytan Referrals / Follow Up: OPHELIA FONSECA MD [Primary Care Provider] - Disposition Disposition (needs filled in before D/C Order can be placed): Home, Self Care Charges/Coding Visit Charges Inpatient E&M: 44317 Disch Hosp >30min
--- NOTE | 2024-05-02 12:28 | PCM.HOSP.N ---
Hospitalist Note I have reviewed the oxygen testing, and this patient qualifies for the home equipment and portability. The patient is mobile in the home and the community.
--- NOTE | 2024-05-02 13:24 | CASEMGMT ---
Patient has order for discharge. Patient will need home oxygen at discharge. Patient prefers [facility], script received and referral sent to [facility] and arranged for portable delivery to patient's room. RN CM in to discuss needs at discharge, updated regarding home oxygen setup. Patient denies further needs or help at home. Patient had no further questions or concerns.
--- NOTE | 2024-05-02 13:57 | CASEMGMT ---
Social Work SW spoke w/pt about LW/POA. Pt has not completed the documents, and declined further information at this time. KATIE Porras
--- NOTE | 2024-05-02 15:11 | PHA.DC_ITS ---
Pharmacy [facility] has performed discharge medication reconciliation and counseling for this patient. 1. FUROSEMIDE 20MG PO DAILY 2. STOP HYDROCHLOROTHIAZIDE The patient's discharge medication list was reviewed for discrepancies and discrepancies were resolved. The patient was counseled on the following discharge medications and changes in medications for homegoing were reviewed. The Reason for Use, instructions for use, and potential side effects were reviewed for all new medications. The patient's questions regarding all of their medications were answered. The patient was able to verbally demonstrate an understanding of their discharge medications. Medications at Discharge Home Medications lamotrigine 200 mg tablet 200 mg PO DAILY seizures 12/17/14 trazodone 100 mg tablet 200 mg PO DAILY sleep 10/18/17 sertraline 100 mg tablet 100 mg PO BID mental health 10/19/17 multivitamin 1 tab PO DAILY vitamin 06/05/19 cholecalciferol (vitamin D3) 125 mcg (5,000 unit) tablet 5,000 unit PO DAILY vitamin 04/04/21 coenzyme Q10 200 mg capsule 200 mg PO DAILY supplement 04/04/21 metoprolol tartrate 100 mg tablet 100 mg PO BID blood pressure #180 tabs 04/12/23 potassium chloride 10 mEq tablet,extended release(part/cryst) 10 meq PO DAILY supplement #90 tabs 04/12/23 ramipril 10 mg capsule 10 mg PO QDAY blood pressure #90 caps 04/12/23 gemfibrozil 600 mg tablet 600 mg PO BID cholesterol #180 tabs 10/04/23 verapamil 120 mg tablet,extended release 120 mg PO BID blood pressure #180 tabs 10/04/23 albuterol sulfate 90 mcg/actuation aerosol inhaler (Ventolin HFA) 1 - 2 puff inhalation Q4H PRN PRN Wheezing ##1 12/12/23 apixaban 5 mg tablet (Eliquis) 5 mg PO BID blood thinner #180 tabs 01/05/24 ezetimibe 10 mg tablet (Zetia) 10 mg PO QDAY cholesterol #90 tabs 03/01/24 venlafaxine 37.5 mg capsule,extended release 24 hr 37.5 mg PO DAILY mental h ealth 04/30/24 furosemide 20 mg tablet (Lasix) 20 mg PO DAILY 30 days #30 tabs 05/02/24
== END 2024-05-02 16:04 | disposition home or self-care (01) | DRG 291 ==
LOC: ED 05:29 → PCU 05-01 07:16
PROVIDERS: Admitting Provider Internal Medicine; Emergency Provider Emergency Medicine; PCP Family Medicine; Visit Provider Hospitalist
DX: I11.0 Hypertensive heart disease with heart failure (principal); I50.33 Acute on chronic diastolic (congestive) heart failure; I27.21 Secondary pulmonary arterial hypertension; Z79.01 Long term (current) use of anticoagulants; F31.9 Bipolar disorder, unspecified; I48.0 Paroxysmal atrial fibrillation; G47.33 Obstructive sleep apnea (adult) (pediatric); I25.10 Atherosclerotic heart disease of native coronary artery without angina pectoris; E78.5 Hyperlipidemia, unspecified; I25.2 Old myocardial infarction; R09.02 Hypoxemia; Z87.891 Personal history of nicotine dependence; R79.89 Other specified abnormal findings of blood chemistry; G47.00 Insomnia, unspecified; Z99.81 Dependence on supplemental oxygen; Z79.899 Other long term (current) drug therapy; R06.00 Dyspnea, unspecified
CPT/HCPCS: 36415; 71045; 71275; 80048; 80061; 83735; 83880; 84484; 85025; 85027; 87631; 93005; 94002; 94003; 94762; 99285; Q9967; A4216; J1940

== ENCOUNTER → 2024-06-01 | Outpatient (CLI) | payer MEDICARE, SELFPAY ==
[2024-06-01 13:37] LABS: Anion Gap 4 (5-15); BNP,B-Type NATRIURETIC PEPTIDE 97.6 pg/mL (0-100); BUN 21 mg/dL (7-18); BUN/Creat Ratio 23.5 RATIO (10-20); Calcium,Total 9.7 mg/dL (8.5-10.1); Chloride 107 mmol/L (98-107); EST Glomerular Filtration Rate 66 mL/min (>60); Est Glom Filt Rate - Afr Amer 80 mL/min (>60); Glucose 86 mg/dL (74-106); Potassium 4.1 mmol/L (3.5-5.1); Sodium Level 141 mmol/L (136-145)
== END | disposition home or self-care (01) ==
LOC: LAB 12:24
PROVIDERS: PCP Family Medicine; Referring Provider Internal Medicine Cardiovascular Disease; Visit Provider Internal Medicine Cardiovascular Disease
DX: R06.09 Other forms of dyspnea (principal)
CPT/HCPCS: 36415; 80048; 83880

== ENCOUNTER 2024-09-18 09:52 | Emergency (ER) | payer MEDICARE, SELFPAY ==
[2024-09-18] VITALS (7 sets, daily range): BP systolic 118–149; BP diastolic 67–84; PULSE 61–694; RESP 15–18; TEMP 36.3–36.6; O2SAT 95–98; BMI 39.4
--- NOTE | 2024-09-18 10:26 | EKG12_ITS ---
Test Reason : Blood Pressure : */* mmHG Vent. Rate : 63 BPM Atrial Rate : 63 BPM P-R Int : 230 ms QRS Dur : 94 ms QT Int : 448 ms P-R-T Axes : 89 0 14 degrees QTcB Int : 458 ms Sinus rhythm with 1st degree A-V block Minimal voltage criteria for LVH, may be normal variant ( R in aVL ) Borderline ECG Confirmed by MADDI MURRAY, MAGO ([id number]), social media editor KISHA PAREDES ([id number]) on 09/19/2024 7:57:16 AM Referred By: Confirmed By: MAGO LINDA MD
--- NOTE | 2024-09-18 10:26 | EDS_ITS ---
HPI History of Present Illness Chief Complaint: Chest Pain Narrative Narrative: 69-year-old female past medical history of aortic valve insufficiency, CHF, atrial fibrillation, hypertension, on Eliquis presents with a few weeks of increasing dyspnea on exertion. She states that she is fine when she is at rest but when she exerts herself or walks she becomes very short of breath, gasping for air. She relates history that she spoke with her woolen suiting shrinker and they have been putting off her having aortic valve replacement for at least 10 years, but there is concern now that she has decompensated. She states that she has chronic leg swelling and is on Lasix. Additionally, she is on Eliquis for her atrial fibrillation. She can feel when she goes into atrial fibrillation and has not had that sensation recently. She and her also relate history that she was admitted to the hospital in congestive heart failure this past summer, few months ago. [facility] Medical History Atherosclerotic heart disease of [place] coronary artery without angina pectoris CAD (coronary artery disease) Essential hypertension Long-term use of high-risk medication Hyperlipidemia Palpitation Non-ST elevation (NSTEMI) myocardial infarction (~08/21/11) GERD (gastroesophageal reflux disease) Secondary pulmonary arterial hypertension Obstructive sleep apnea Non-rheumatic aortic stenosis Bipolar disorder Persistent atrial fibrillation Bicuspid aortic valve Home Medications ?Medication ?Instructions ?Recorded ?Last Taken ?Type lamotrigine 200 mg tablet 200 mg PO DAILY seizures 12/17/14 04/29/24 History sertraline 100 mg tablet 100 mg PO BID mental health 10/19/17 04/29/24 History multivitamin 1 tab PO DAILY vitamin 06/05/19 04/29/24 History cholecalciferol (vitamin D3) 125 5,000 unit PO DAILY vitamin 04/04/21 04/29/24 History mcg (5,000 unit) tablet coenzyme Q10 200 mg capsule 200 mg PO DAILY supplement 04/04/21 04/29/24 History gemfibrozil 600 mg tablet 600 mg PO BID cholesterol #180 tabs 10/04/23 04/29/24 Rx verapamil 120 mg tablet,extended 120 mg PO BID blood pressure #180 10/04/23 04/29/24 Rx release tabs apixaban 5 mg tablet (Eliquis) 5 mg PO BID blood thinner #180 tabs 01/05/24 04/29/24 Rx ezetimibe 10 mg tablet (Zetia) 10 mg PO QDAY cholesterol #90 tabs 03/01/24 Rx gabapentin 100 mg capsule 200 mg PO DAILY PRN 06/01/24 Unknown History tramadol 50 mg tablet 50 mg PO TID PRN 06/01/24 Unknown History trazodone 100 mg tablet 200 mg PO QHS sleep 06/01/24 Unknown History metoprolol tartrate 100 mg tablet 100 mg PO BID blood pressure #180 06/22/24 Unknown Rx tabs potassium chloride 10 mEq 10 meq PO DAILY supplement #90 tabs 06/22/24 Unknown Rx tablet,extended release(part/cryst) ramipril 10 mg capsule 10 mg PO QDAY blood pressure #90 06/22/24 Unknown Rx caps furosemide 20 mg tablet (Lasix) 20 mg PO DAILY 90 days #90 tabs 09/18/24 Unknown Rx Allergy/AdvReac Type Severity Reaction Status Date / Time No Known Allergies Allergy Verified 09/18/24 09:57 Family History Brother CAD (coronary artery disease) from [place] age 52 Father Dementia Mother Cancer Surgical History History of right and left heart catheterization (~03/05/17) H/O discectomy History of maze procedure (~10/22/04) history of pulmonary vein isolation (~10/11/06) Social History household members: spouse housing: house number of children: 3 current occupational status: retired Smoking Status: Former smoker how long ago did patient quit smokin second hand exposure: No alcohol intake: never substance use type: does not use caffeine: Yes what type of physical activity do you participate in: none ROS ROS ED ROS Narrative Constitutional: No fever, no chills. HEENT: No sore throat. No neck pain. No loss of vision. No rhinorrhea. Cardiovascular: Mild chest tightness with exertion chest pain. No palpitations. Positive pedal edema. Respiratory: No cough, no shortness of breath at rest but positive dyspnea on exertion. Abdominal: No abdominal pain. No nausea. No vomiting. Genitourinary: No dysuria. No hematuria. Musculoskeletal: No myalgias. No arthralgias. Neurologic: No headaches. No dizziness. No lightheadedness. Skin: No rash. No change in color. Psychiatric: No depression. No anxiety. EXAM Physical Exam Narrative Exam Narrative: Afebrile. Vital signs noted. Nontoxic-appearing. HEENT examination grossly unremarkable, atraumatic. Cardiovascular examination reveals a regular rate and rhythm. Positive systolic murmur. No rubs or gallops appreciated. Decreased breath sounds bilateral bases posteriorly. No respiratory distress. Neurological examination nonfocal and nonlateralizing. Const Vital Signs: 09/18/24 09:53 09/18/24 10:32 09/18/24 11:00 Temperature 97.3 F L Temperature Source Oral Pulse Rate 63 61 Respiratory Rate 18 15 Blood Pressure 142/78 H 128/81 H Blood Pressure Mean 99 96 Pulse Ox 98 96 Oxygen Delivery Method Room Air Room Air 09/18/24 12:00 09/18/24 13:00 09/18/24 14:00 Temperature Temperature Source Pulse Rate 64 64 694 H Respiratory Rate 16 Blood Pressure 122/70 H 118/67 138/84 H Blood Pressure Mean 87 84 102 Pulse Ox 95 Oxygen Delivery Method Room Air MDM MDM MDM Narrative Medical decision making narrative: Differential diagnosis includes but not limited to aortic valve insufficiency versus congestive heart failure versus COPD versus pneumonia versus pneumothorax. History and physical does not support the latter 2 diagnoses. Comprehensive workup was pursued. EKG obtained and interpreted by myself independently as normal sinus rhythm at 63 bpm with first-degree AV block, but no acute ST changes. No STEMI. I reviewed her cardiology outpatient notes and she has history of bicuspid aortic valve with dilated aortic root. She might have more aortic stenosis and she does insufficiency. I reviewed her laboratory work and she has normal white count of 8.6 with hemoglobin stable at 9.3, hematocrit 29.7, platelet count 209. Electrolyte panel is significant for BUN of 21 with a normal creatinine of 0.98, glucose elevated at 114. While her BNP is elevated at 163, it has been higher, so I doubt CHF exacerbation. Initial high-sensitivity troponin is 12 with repeat being 9. Feel she has been ruled out for ACS with cardiac high enzymes/biomarkers. Chest x-ray in 1 view interpreted by myself independently shows no acute process, no CHF, no pneumothorax or pneumonia. There is elevated right hemidiaphragm. I compared this to previous. I reviewed the radiology report which confirms my independent interpretation. I also reviewed her outpatient cardiology notes and she has a bicuspid aortic valve. In discussion with the patient, she states she was looking up the symptoms of aortic stenosis with bicuspid aortic valve and she has all of them. I feel it is probably more of an aortic stenosis than regurgitation or insufficiency. She was ambulated and she did not desaturate but she did become short of breath. I do feel that she can be discharged safely home with follow-up to her woolen suiting shrinker and that they should discuss her aortic valve replacement as she states they have been putting it off for years. I also discussed with the patient and her the possibility of observation/admission and they declined. I do not feel that there would necessarily be any benefit to observation or transfer. She states that her dyspnea on exertion has been longstanding. She is motivated for discharge. Return instructions to the emergency department reviewed. Disposition is discharged home in stable condition. History & Record Review Discussion w/independent historian: Patient Lab Data Attestation: I reviewed the patient's lab results. Labs: Laboratory Results - last 24 hr 09/18/24 09/18/24 10:03 12:11 WBC 8.6 RBC 3.14 L Hgb 9.3 L Hct 29.7 L MCV 94.6 MCH 29.6 MCHC 31.3 L RDW Std Deviation 48.9 H RDW Coeff of Alex 14.4 Plt Count 209 MPV 9.1 Immature Gran % (Auto) 0.900 Neut % (Auto) 73.7 H Lymph % (Auto) 17.9 L Rolette % (Auto) 5.7 Eos % (Auto) 1.2 Baso % (Auto) 0.6 Absolute Neuts (auto) 6.4 Absolute Lymphs (auto) 1.54 Nucleated RBC % 0 Sodium 139 Potassium 3.8 Chloride 105 Carbon Dioxide 29.0 Anion Gap 5 BUN 21 H Creatinine 0.98 Estim Creat Clear Calc 63.76 Est GFR (MDRD) Af Amer 72 Est GFR (MDRD) Non-Af 59 L BUN/Creatinine Ratio 21.3 H Glucose 114 H Calcium 9.4 Troponin I High Sens 12 9 B-Natriuretic Peptide 163.7 H Radiography Chest X-Ray - ED: 1 View, Read by ED Physician and Read by Radiologist Diagnostic Testing: Clinical Impression(s) from Imaging Studies Chest X-Ray 09/18/24 10:35 IMPRESSION: No acute cardiopulmonary abnormality. Electronically Signed: Raghav Freire MD at 11:17 EST , Discharge Plan Triage Chief Complaint: Chest Pain ED Provider: Faizan Sanchez Dx/Rx/DC Orders Clinical Impression: FERNANDO (dyspnea on exertion), Bicuspid aortic valve Instructions: ED Dyspnea Prescriptions: No Action sertraline 100 mg tablet 100 mg PO BID multivitamin Tablet 1 tab PO DAILY cholecalciferol (vitamin D3) 125 mcg (5,000 unit) tablet 5,000 unit PO DAILY coenzyme Q10 200 mg capsule 200 mg PO DAILY Eliquis 5 mg tablet 5 mg PO BID Qty: 180 4RF tramadol 50 mg tablet 50 mg PO TID PRN gabapentin 100 mg capsule 200 mg PO DAILY PRN lamotrigine 200 MG tablet 200 mg PO DAILY trazodone 100 mg tablet 200 mg PO QHS gemfibrozil 600 mg tablet 600 mg PO BID Qty: 180 3RF verapamil 120 mg tablet extended release 120 mg PO BID Qty: 180 3RF ezetimibe [Zetia] 10 mg tablet 10 mg PO QDAY Qty: 90 3RF potassium chloride 10 mEq tablet,ER particles/crystals 10 meq PO DAILY Qty: 90 3RF metoprolol tartrate 100 mg tablet 100 mg PO BID Qty: 180 3RF ramipril 10 mg capsule 10 mg PO QDAY Qty: 90 4RF furosemide [Lasix] 20 mg tablet 20 mg PO DAILY 90 Days Qty: 90 3RF Primary Care Provider: OPHELIA FONSECA Referrals: OPHELIA FONSECA MD [Primary Care Provider] - Han Natarajan MD [Med Staff - Active Staff] - 3-5 Days Activity Restrictions/Additional Instructions: Return with chest pain, increased difficulty breathing, new or worsening symptoms. You may need to talk to your woolen suiting shrinker Dr. Natarajan regarding aortic valve replacement/TAVR. Print Language: Gambian Disposition Disposition: Home, Self Care
--- NOTE | 2024-09-18 10:35 | RAD_ITS ---
EXAM: XR CHEST, 1 VIEW CLINICAL INDICATION: chest pain TECHNIQUE: Frontal view of the chest. COMPARISON: XR Chest dated 04/30/2024 FINDINGS: LUNGS AND PLEURAL SPACES: No pulmonary consolidation. HEART: Normal heart size. MEDIASTINUM: No mediastinal or hilar mass. BONES/JOINTS: No acute abnormality. UPPER ABDOMEN: Elevation of the right hemidiaphragm again noted. RAD/Chest 1 View (Portable) IMPRESSION: No acute cardiopulmonary abnormality. Electronically Signed: Raghav Freire MD at 11:17 EST ,
[2024-09-18 10:40] LABS: Absolute Lymphocyte Count 1.54 X10^3/uL (0.83-4.51); Absolute Neutrophil Count 6.4 X10^3/uL (2.0-7.7); Basophil# 0.05 X10^3/uL; Basophil% 0.6 % (0-1); Eosinophils% 1.2 % (0-5); Hematocrit 29.7 % (37-47); Hemoglobin 9.3 g/dL (12.0-15.0); Lymphocyte # 1.54 X10^3/ul (0.83-4.51); Lymphocyte % 17.9 % (19-41); Mean Corp Hgb Conc 31.3 g/dL (32-36); Mean Corpuscular Hgb 29.6 pg (27.0-32.0); Mean Corpuscular Volume 94.6 fL (81-99); Mean Platelet Vol. 9.1 fl (6.2-12.0); Monocyte# 0.49 X10^3/uL; Monocyte% 5.7 % (0-10); NRBC Flagged by Analyzer 0 % (0-5); Neutrophil # 6.35 X10^3/uL (2.7-7.7); Neutrophil % 73.7 % (47-70); Platelet Count 209 K/mm3 (150-450); RBC Distribution Width CV 14.4 % (11.6-14.6); RBC Distribution Width SD 48.9 fl (35.1-43.9); Red Blood Count 3.14 M/mm3 (4.2-5.4); White Blood Count 8.6 K/mm3 (4.4-11.0)
[2024-09-18 10:58] LABS: Anion Gap 5 (5-15); BUN 21 mg/dL (7-18); BUN/Creat Ratio 21.3 RATIO (10-20); Calcium,Total 9.4 mg/dL (8.5-10.1); Chloride 105 mmol/L (98-107); Creatinine, Serum 0.98 mg/dL (0.55-1.02); EST Glomerular Filtration Rate 59 mL/min (>60); Est Glom Filt Rate - Afr Amer 72 mL/min (>60); Estimated Creatinine Clearance 63.76 ml/min; Glucose 114 mg/dL (74-106); Potassium 3.8 mmol/L (3.5-5.1); Sodium Level 139 mmol/L (136-145); Troponin-I HS (w/2H Reflex) 12 pg/mL (3.0-54.0)
[2024-09-18 11:10] LABS: BNP,B-Type NATRIURETIC PEPTIDE 163.7 pg/mL (0-100)
[2024-09-18 12:30] LABS: Reflex Troponin-HS? (from REC) Y
[2024-09-18 12:58] LABS: Troponin-I HS 9 pg/mL (3.0-54.0)
--- NOTE | 2024-09-18 13:35 | ED.RN ---
ambulatory pulse of 90-95% with inc work of breathing while walking. Dr. Sanchez notified
== END 2024-09-18 14:42 | disposition home or self-care (01) ==
PROVIDERS: Emergency Provider Emergency Medicine; PCP Family Medicine; Visit Provider Emergency Medicine
DX: R06.00 Dyspnea, unspecified (principal); I11.0 Hypertensive heart disease with heart failure; I50.9 Heart failure, unspecified; I48.19 Other persistent atrial fibrillation; I25.10 Atherosclerotic heart disease of native coronary artery without angina pectoris; Z87.891 Personal history of nicotine dependence; Z79.01 Long term (current) use of anticoagulants; E78.5 Hyperlipidemia, unspecified; Q23.81 Bicuspid aortic valve; I25.2 Old myocardial infarction; Z79.899 Other long term (current) drug therapy
CPT/HCPCS: 71045; 80048; 83880; 84484; 85025; 93005; 99283; A4216

== ENCOUNTER → 2024-09-27 | Outpatient (CLI) | payer MEDICARE, SELFPAY ==
--- NOTE | 2024-09-27 09:45 | ECHOLC_ITS ---
Reason For Study: Dyspnea/SOB Procedure This was a limited 2D transthoracic echocardiogram. Exam performed in department. Left Ventricle Normal left ventricle. Left ventricular systolic function is normal. The left ventricular ejection fraction is 60 %. No regional wall motion abnormalities noted. Right Ventricle Normal RV size. Normal systolic function. Atria Normal left atrium. Normal right atrium. Mitral Valve Normal mitral valve. Mild (1+) eccentric mitral valve insufficiency. Tricuspid Valve Normal tricuspid valve. Moderate (2+) tricuspid valve insufficiency. Pulmonary artery systolic pressure is 55 mmHg. Aortic Valve Moderate focal aortic valve calcification. Appears to be functionally bicuspid. Peak aortic valve gradient 64 mmHg. Mean aortic valve gradient 35 mmHg. Pulmonic Valve Normal pulmonic valve. Great Vessels Calcified aortic root. Mild to moderately dilated aortic root. The pulmonary artery is normal size. Inferior vena cava collapse with respiration. Pericardium/Pleural No pericardial effusion. MMode/2D Measurements & Calculations LVOT diam: 2.0 cm Ao root diam: 4.4 cm LVOT area: 3.2 cm2 Doppler Measurements & Calculations Ao V2 max: 399.6 cm/sec LV V1 max: 93.4 cm/sec SV(LVOT): 82.6 ml Ao max P.9 mmHg LV V1 max P.5 mmHg Ao V2 mean: 277.7 cm/sec LV V1 mean P.3 mmHg Ao mean P.4 mmHg LV V1 mean: 71.6 cm/sec Ao V2 VTI: 101.3 cm LV V1 VTI: 25.7 cm AV (velocity ratio): 0.25 CELESTE(I,D): 0.82 cm2 CELESTE(V,D): 0.75 cm2 TR max brina: 360.4 cm/sec TR max P.0 mmHg ECHO/Echo, Limited Study Interpretation Summary Normal left ventricle. Left ventricular systolic function is normal. The left ventricular ejection fraction is 60 %. Pulmonary artery systolic pressure is 55 mmHg. Moderate focal aortic valve calcification. Appears to be functionally bicuspid Peak aortic valve gradient 64 mmHg. Compared to the previous echocardiogram the gradients are increased and are now in the moderately severe to severe range. Ordering Physician: Bradley Martinez Referring Physician: Bradley aMrtinez Performed By: Senthil Anthony RCS
== END | disposition home or self-care (01) ==
LOC: CVS 09:44
PROVIDERS: PCP Family Medicine; Referring Provider Nurse Practitioner Family; Visit Provider Nurse Practitioner Family
DX: I35.0 Nonrheumatic aortic (valve) stenosis (principal)
CPT/HCPCS: 93308

== ENCOUNTER → 2024-11-13 | Outpatient (CLI) | payer MEDICARE, SELFPAY ==
[2024-11-14 06:42] LABS: ALB/GLOB Ratio 0.9 RATIO (0.9-2.4); AST(SGOT) 12 U/L (15-37); Alanine Aminotransfer ALT/SGPT 11 U/L (13-56); Albumin, Serum 3.5 g/dL (3.2-5.0); Alkaline Phosphatase 103 U/L (45-117); Anion Gap 5 (5-15); BUN 20 mg/dL (7-18); Calcium,Total 9.2 mg/dL (8.5-10.1); Chloride 107 mmol/L (98-107); Creatinine, Serum 0.95 mg/dL (0.55-1.02); EST Glomerular Filtration Rate 62 mL/min (>60); Est Glom Filt Rate - Afr Amer 75 mL/min (>60); Globulin 3.7 g/dL (2.2-4.2); Glucose 100 mg/dL (74-106); Protein, Total 7.2 g/dL (6.4-8.2); Sodium Level 142 mmol/L (136-145)
== END | disposition home or self-care (01) ==
LOC: LAB 08:48
PROVIDERS: PCP Family Medicine
DX: I35.0 Nonrheumatic aortic (valve) stenosis (principal)
CPT/HCPCS: 36415; 80053

== ENCOUNTER → 2024-11-15 | Outpatient (CLI) | payer MEDICARE, SELFPAY ==
[2024-11-15 11:06] LABS: Absolute Lymphocyte Count 1.46 X10^3/uL (0.83-4.51); Basophil# 0.03 X10^3/uL; Basophil% 0.3 % (0-1); Eosinophil# 0.14 X10^3/uL; Eosinophils% 1.4 % (0-5); Hematocrit 31.9 % (37-47); Hemoglobin 9.9 g/dL (12.0-15.0); Lymphocyte # 1.46 X10^3/ul (0.83-4.51); Lymphocyte % 14.4 % (19-41); Mean Corpuscular Hgb 27.8 pg (27.0-32.0); Mean Corpuscular Volume 89.6 fL (81-99); Mean Platelet Vol. 9.4 fl (6.2-12.0); Monocyte# 0.51 X10^3/uL; NRBC Flagged by Analyzer 0 % (0-5); Neutrophil # 7.98 X10^3/uL (2.7-7.7); Neutrophil % 78.4 % (47-70); Platelet Count 247 K/mm3 (150-450); RBC Distribution Width CV 14.2 % (11.6-14.6); RBC Distribution Width SD 46.5 fl (35.1-43.9); Red Blood Count 3.56 M/mm3 (4.2-5.4); White Blood Count 10.2 K/mm3 (4.4-11.0)
== END | disposition home or self-care (01) ==
LOC: LAB 10:45
PROVIDERS: PCP Family Medicine; Referring Provider Internal Medicine Interventional Cardiology; Visit Provider Internal Medicine Interventional Cardiology
DX: I35.0 Nonrheumatic aortic (valve) stenosis (principal)
CPT/HCPCS: 85025

== ENCOUNTER → 2024-11-20 | Outpatient (CLI) | payer MEDICARE, SELFPAY ==
[2024-11-20 21:15] LABS: BUN 21 mg/dL (4-19); BUN/Creat Ratio 18.7 RATIO (10-20); Creatinine, Serum 1.12 mg/dL (0.70-1.20); EST Glomerular Filtration Rate 53 (>60); Glucose 104 mg/dL (70-99)
[2024-11-20 22:07] LABS: Anion Gap 15 (5-15); Calcium,Total 9.9 mg/dL (7.6-11.0); Carbon Dioxide 25.5 mmol/L (21.0-32.0); Chloride 102 mmol/L (98-108); Potassium 3.9 mmol/L (3.3-5.1); Sodium Level 142 mmol/L (133-145)
== END | disposition home or self-care (01) ==
LOC: MTLAB 15:54
PROVIDERS: PCP Family Medicine; Referring Provider Nurse Practitioner Adult Health; Visit Provider Nurse Practitioner Adult Health
DX: I35.0 Nonrheumatic aortic (valve) stenosis (principal)
CPT/HCPCS: 36415; 80048

== ENCOUNTER → 2025-03-05 | Outpatient (CLI) | payer MEDICARE, SELFPAY ==
--- NOTE | 2025-03-05 09:04 | ECHOD_ITS ---
Reason For Study Reason For Study: VALVE REPLACEMENT Procedure This was a 2D Doppler, Color Flow transthoracic echocardiogram. The study was technically difficult. Exam performed in department. Left Ventricle Normal LV size. The left ventricular ejection fraction is 60 %. Stage 3 diastolic dysfunction. No regional wall motion abnormalities noted. Right Ventricle Normal RV size. Normal systolic function. Atria Normal left atrium. Normal right atrium. Mitral Valve Normal mitral valve. Tricuspid Valve Normal tricuspid valve. Mild (1+) tricuspid valve insufficiency. Pulmonary artery systolic pressure is 36 mmHg. Aortic Valve Peak aortic valve gradient 23 mmHg. Mean aortic valve gradient 12 mmHg. Bioprosthetic aortic valve. Pulmonic Valve Normal pulmonic valve. Mild (1+) pulmonic valve insufficiency. Great Vessels The sinus of valsalva is mildly dilated. The ascending aorta is mild-moderately dilated. The pulmonary artery is normal size. Inferior vena cava collapse with respiration. Pericardium/Pleural No pericardial effusion. MMode/2D Measurements & Calculations LVIDd: 4.1 cm IVSd: 1.1 cm LVOT diam: 2.0 cm LVIDs: 2.0 cm LVPWd: 1.1 cm LVOT area: 3.1 cm2 RVDd: 4.2 cm FS: 51.9 % asc Aorta Diam: 4.3 cm LAV(MOD-bp): 48.1 ml LVAd ap4: 21.5 cm2 LAV(MOD-bp) Indexed: 23.4 ml/m2 LVLd ap4: 7.5 cm LAV(MOD-sp2): 52.0 ml EDV(MOD-sp4): 49.2 ml LAV(MOD-sp4): 42.5 ml EDV(sp4-el): 52.4 ml LVAs ap4: 10.6 cm2 LVLs ap4: 6.0 cm ESV(MOD-sp4): 15.8 ml ESV(sp4-el): 15.9 ml EF(MOD-sp4): 67.8 % EF(sp4-el): 69.7 % LVAd ap2: 19.8 cm2 SV(MOD-sp4): 33.4 ml SV(MOD-sp2): 29.6 ml LVLd ap2: 6.9 cm SI(MOD-sp4): 16.2 ml/m2 SI(MOD-sp2): 14.4 ml/m2 EDV(MOD-sp2): 46.8 ml EDV(sp2-el): 48.0 ml LVAs ap2: 11.2 cm2 LVLs ap2: 5.9 cm ESV(MOD-sp2): 17.2 ml ESV(sp2-el): 18.1 ml EF(MOD-sp2): 63.3 % SV(sp4-el): 36.5 ml Ao sinus diam: 4.[address] Junction: 3.4 cm LA dimension(2D): 3.5 cm LA A4 area: 16.6 cm2 RA A4 area: 9.5 cm2 TAPSE: 1.8 cm Time Measurements MV dec time: 0.17 sec Doppler Measurements & Calculations MV E max brina: 95.9 cm/sec MV dec slope: 560.0 cm/sec2 Ao V2 max: 237.6 cm/sec MV A max brina: 37.8 cm/sec Ao max P.6 mmHg MV E/A: 2.5 Ao V2 mean: 163.7 cm/sec Ao mean P.2 mmHg Ao V2 VTI: 53.9 cm AV (velocity ratio): 0.43 CELESTE(I,D): 1.4 cm2 CELESTE(V,D): 1.3 cm2 LV V1 max: 100.1 cm/sec SV(LVOT): 73.6 ml PA V2 max: 84.2 cm/sec LV V1 max P.0 mmHg LV V1 mean P.2 mmHg LV V1 mean: 68.4 cm/sec LV V1 VTI: 23.4 cm PI end-d brina: 141.4 cm/sec TR max brina: 286.7 cm/sec TR max P.9 mmHg ECHO/Echo Complete Interpretation Summary Normal LV size. The left ventricular ejection fraction is 60 %. Pulmonary artery systolic pressure is 36 mmHg. Bioprosthetic aortic valve. Mean aortic valve gradient 12 mmHg. Stage 3 diastolic dysfunction. Ordering Physician: Mercedes Cornelius Referring Physician: OPHELIA FONSECA Performed By: Shoshana Oliver RDCS
== END | disposition home or self-care (01) ==
LOC: CVS 09:04
PROVIDERS: PCP Family Medicine; Referring Provider Physician Assistant Medical; Visit Provider Physician Assistant Medical
DX: Q23.81 Bicuspid aortic valve (principal)
CPT/HCPCS: 93306

== ENCOUNTER → 2025-07-26 | Outpatient (CLI) | payer MEDICARE, SELFPAY | END | disposition home or self-care (01) | LOC: PSN 10:51 | PROVIDERS: PCP Family Medicine; Referring Provider Internal Medicine Cardiovascular Disease; Visit Provider Internal Medicine Cardiovascular Disease | DX: I48.92 Unspecified atrial flutter (principal) | CPT/HCPCS: 93225; 93226 ==

== ENCOUNTER → 2025-08-20 | Outpatient (CLI) | payer MEDICARE, SELFPAY ==
--- NOTE | 2025-08-20 15:26 | RAD_ITS ---
PROCEDURE: CHEST PA AND LATERAL 08/20/2025 REASON FOR EXAM: ATRIAL FLUTTER, SOB TECHNIQUE: Procedure Code: RADCXR Modality: DX Procedure: CHEST PA AND LATERAL COMPARISON: 09/18/2024 FINDINGS: No focal consolidation. Mild pulmonary vascular congestion. Bibasilar subsegmental axis. No pleural effusion or pneumothorax. Cardiac silhouette is within normal limits. Cardiac valve repair/vascular stent. No acute fractures. RAD/Chest PA and Lateral IMPRESSION: No focal consolidations. Mild pulmonary vascular congestion. Reading Location: [id number]
[2025-08-20 17:44] LABS: Anion Gap 9 (5-15); BUN 12 mg/dL (4-19); BUN/Creat Ratio 12.8 RATIO (10-20); Calcium,Total 9.5 mg/dL (7.6-11.0); Carbon Dioxide 28.0 mmol/L (21.0-32.0); Chloride 106 mmol/L (98-108); Glucose 103 mg/dL (70-99); Potassium 3.3 mmol/L (3.3-5.1)
== END | disposition home or self-care (01) ==
PROVIDERS: PCP Family Medicine; Referring Provider Student in an Organized Health Care Education/Training Program; Visit Provider Student in an Organized Health Care Education/Training Program
DX: I48.4 Atypical atrial flutter (principal); R06.09 Other forms of dyspnea
CPT/HCPCS: 36415; 71046; 80048

== ENCOUNTER 2025-09-17 09:55 | Day surgery (SDC) | payer MEDICARE, SELFPAY ==
--- NOTE | 2025-08-27 16:05 | HP.PCM_ITS ---
History and Physical Date of Admission: 09/17/25 HPI HPI History of Present Illness Details: Adriana Glez is a 70-year-old female who presents today for cardioversion. She has a history of atrial fibrillation/atrial flutter, aortic valve stenosis status post bioprosthetic aortic valve via TAVR 12/04/2024, hyperlipidemia. She had undergone maze procedure [facility]. Upon presentation today, patient reports fatigue over the last few months, essentially is reported to be unchanged and she takes a nap daily. She experiences occasional dizziness and lightheadedness when turning too fast or occasionally with showering. Further ROS below. She reports prior to her TAVR, she was symptomatic with palpitations related to arrhythmia; however, since procedure, she has essentially been asymptomatic. 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 Is patient in pain?: No Allergies See EMR Medications See EMR Medication Reconciliation completed?: Yes Ejection fraction %: 60 Have you fallen in the past year?: No PFSH Medical History Atherosclerotic heart disease of [place] coronary artery without angina pectoris CAD (coronary artery disease) Essential hypertension Long-term use of high-risk medication Hyperlipidemia Palpitation Non-ST elevation (NSTEMI) myocardial infarction (~08/21/11) GERD (gastroesophageal reflux disease) Secondary pulmonary arterial hypertension Obstructive sleep apnea Non-rheumatic aortic stenosis Bipolar disorder Persistent atrial fibrillation Bicuspid aortic valve Surgical History History of transcatheter aortic valve replacement (TAVR) (12/04/24) History of right and left heart catheterization (~03/05/17) H/O discectomy History of maze procedure (~10/22/04) history of pulmonary vein isolation (~10/11/06) Family History Brother CAD (coronary artery disease) from [place] age 52 Father Dementia Mother Cancer Social History household members: spouse housing: house number of children: 3 current occupational status: retired Smoking Status: Former smoker how long ago did patient quit smokin second hand exposure: No alcohol intake: never substance use type: does not use caffeine: Yes what type of physical activity do you participate in: none ROS Const Const: Positive for fatigue; Negative for weakness, headache(s) or frequent falls Eyes Eyes: Negative for blurry vision ENT ENT: Positive for dizziness; Negative for headache(s) or Nosebleed/epistaxis Cardio Chest Pain: No Palpitations: No Edema: None Muscle aches with walking: None Resp Respiratory: Negative for SOB with activity, SOB at rest or SOB orthopnea\SOB lying down GI GI: Negative nausea, vomiting, heartburn, bright, red blood in stools or black,tarry stools : Negative for hematuria Neuro Neuro: Positive for dizziness and lightheadedness; Negative for near syncope, syncope, frequent falls, headache(s), weakness or blurry vision Endo Endo: Positive for fatigue Cardiology Exam Const Appearance: cooperative, comfortable, no acute distress and well developed; Negative diaphoretic or ill appearing Nutritional Appearance: obese Orientation: alert and oriented x3 Ambulating without assistive device Head Head: normal to inspection, normocephalic and atraumatic Ears: hearing grossly normal bilaterally Nose: external nose normal and Negative epistaxis Face and Sinus: face symmetric Eyes General: appearance normal, both eyes and all related structures Eyelids: eyelids normal Conjunctivae: conjunctivae normal; Negative scleral icterus EOM: EOM intact bilaterally Neck Neck: no JVD Carotids: normal carotid upstroke; Negative bruit Neck Mass: Negative Neck mass Chest Chest inspection: normal respiratory effort; Negative respiratory distress, audible wheezes or tachypneic Auscultation: Bilateral: Clear to Auscultation Cardio Rate: tachycardic Rhythm: regular rhythm Heart sounds: S1 normal and S2 normal; Negative rub, gallop or murmur GI GI: obese Neuro General: patient alert, patient awake, patient oriented x3 and moves all extremities Skin Skin: no rashes or lesions noted Extremities Pulses: Normal: Right Posterior Tibial Pulse, Left Posterior Tibial Pulse, Right Radial Pulse and Left Radial Pulse Lower Extremity Edema: None: Bilateral Psych Psychological: normal affect Supplemental Info Supplemental Information Echocardiogram 03/05/2025 Interpretation Summary Normal LV size. The left ventricular ejection fraction is 60 %. Pulmonary artery systolic pressure is 36 mmHg. Bioprosthetic aortic valve. Mean aortic valve gradient 12 mmHg. Stage 3 diastolic dysfunction. CTA Angiogram TAVR 11/30/2024 Conclusions 1. Calcific aortic stenosis, with descriptive anatomy and annular/aortic root measurements as detailed above. 2. Patient bilateral iliofemoral system as detailed above. 3. Bicuspid aortic valve. Mild to moderate ascending aortic enlargement with maximal diameter 4.3cm. Holter Monitor 10/29/2020 Interpretation There were a total of 86,976 beats recorded over the 24 hour period. Normal sinus rhythm with rare episodes of sinus arrhythmia. Average heart rate was 60 BPM. Minimum heart rate was 49 BPM, sinus bradycardia. Maximum heart rate was 90 BPM, normal sinus rhythm. The longest R-R interval was 1.6 seconds. There were a total of 1999 premature ventricular ectopic isolated beats, comprising of 2.3% of the total QRS complexes. No runs noted. There were a total of 15 premature supraventricular ectopic isolated beats. 2 atrial pairs noted. No runs noted, no atrial fibrillation noted. The patient kept a diary with no symptoms noted. Cardiac Catheterization 03/05/2017 Conclusions -Normal coronary arteries -Aortic Valve Calcification - mild -Cardiac Output - preserved -The patient has pulmonary hypertension which is moderate. -Unable to cross bicuspid aortic valve -Mild Aortic Insufficiency Assessment and Plan Assessment and Plan (1) Atrial flutter: Status: Acute Qualifiers: Atrial flutter type: atypical Qualified Code(s): I48.4 - Atypical atrial flutter Plan: Patient has a history of atrial fibrillation status post maze procedure and now noted to have atrial flutter. EKG today demonstrates atrial flutter with a 2-1 AV conduction at a rate of 111 bpm, QT/QTc 376/511. [id number] score of 6. She is essentially asymptomatic. Plan: Recommend patient continue amiodarone as currently planned with loading dose and de-escalating to once a day once loaded. Will continue metoprolol tartrate 100 mg twice daily and verapamil 120 mg twice daily with instructions to hold verapamil if heart rate is less than 60. Will check EKG/QTc in approximately 10 days. If patient remains in atrial flutter after completing l oading of amiodarone, will consider cardioversion.
[2025-09-14 09:26] VITALS: BMI 34.7
[2025-09-17 10:47] LABS: Potassium 3.7 mmol/L (3.5-5.1)
--- NOTE | 2025-09-17 12:35 | PCM.OP.PRO2 ---
Procedures Pulmonary Pulmonary Procedures /Diagnostic Testin Con Sedation Bedside Procedural Bedside Procedure Information Date of Procedure: 09/17/25 Description of procedure: CONSCIOUS SEDATION REPORT DATE OF SERVICE: September 17, 2025 BRIEF HISTORY OF PRESENT ILLNESS: The patient is a 70-year-old female who presented to [facility] to undergo an elective outpatient cardioversion due to underlying atrial flutter. The patient has never previously undergone a cardioversion. She denied any history of any anesthetic complications. The patient does have a known history of obstructive sleep apnea and is currently maintained on nocturnal PAP therapy. The patient is systemically anticoagulated on Eliquis. Her last surface echocardiogram demonstrated an ejection fraction of approximately 60%. PHYSICAL EXAMINATION: VITAL SIGNS: Reviewed and were acceptable. GENERAL: The patient is a female, in no apparent distress, speaking in full sentences. HEENT: Normocephalic, atraumatic. Mucous membranes are moist and pink. Good mouth opening noted. Trachea is midline. CHEST: S1, S2 irregularly irregular. No murmurs, rubs or gallops were noted. LUNGS: Clear to auscultation bilaterally without appreciable wheezes, rales or rhonchi. ABDOMEN: Soft, nontender, nondistended. Positive bowel sounds. EXTREMITIES: There is no clubbing, cyanosis or edema. ASA Class: II DESCRIPTION OF PROCEDURE: After confirmation of informed consent, the patient's anesthesia plan was reviewed in detail. Propofol was chosen. Risks and benefits were reviewed and the patient agreed to proceed. At 1215, the patient was given 50 mg of propofol. The patient achieved an appropriate level of sedation and was given a 100 joule synchronized cardioversion by Dr. Natarajan at the bedside. This was successful in achieving normal sinus rhythm. The patient was monitored until 1229, at which time she reached her baseline mental status and function. The patient tolerated the procedure well. COMPLICATIONS: None ESTIMATED BLOOD LOSS: None RECOMMENDATIONS: Okay to recover in usual fashion.
--- NOTE | 2025-09-17 12:43 | CARDIOVERS_ITS ---
Cardioversion Cardioversion: Patient is a 70-year-old white female who was brought to the [facility] recovery area in the [place] in a fasting state this morning. Patient's ECG shows persistent atrial flutter with 2 1 AV conduction at a heart rate of 110 bpm. This is unchanged from her prior ECG. She has been treated with a combination of amiodarone, metoprolol, and verapamil. The patient has been fully loaded with amiodarone and on uninterrupted oral anticoagulation therapy with Eliquis 5 mg twice daily. After informed consent and the patient being sedated by Dr. Michael Segal with 50 mg of propofol a single 100 J synchronized shock was delivered with anterior posterior pad placement. The patient converted to normal sinus rhythm at 72 bpm blood pressure was 100 systolic. The patient awoke from the procedure with no focal neurologic deficits. Recommend that we discontinue the metoprolol but she will be continued on her same dose of amiodarone 200 mg daily and verapamil 120 mg twice daily. Patient will be reevaluated with an ECG in the office in the next 7 days and blood pressure will be evaluated. Will look to discontinue the amiodarone over the next 6 to 12 weeks. We may need to replace the amiodarone with metoprolol depending on her heart rate and blood pressure response. The patient will be evaluated as noted in the next 7 days with an ECG and in 3-4 weeks in the office with advanced practitioner. Procedures Coronary Therapeutic CF Procedures [id number]: [id number] Cardioversion electric ext
== END 2025-09-17 13:35 | disposition home or self-care (01) ==
PROVIDERS: PCP Family Medicine; Referring Provider Internal Medicine Cardiovascular Disease; Visit Provider Internal Medicine Cardiovascular Disease
DX: I48.19 Other persistent atrial fibrillation (principal); I48.4 Atypical atrial flutter; I25.10 Atherosclerotic heart disease of native coronary artery without angina pectoris; E78.5 Hyperlipidemia, unspecified; Z87.891 Personal history of nicotine dependence; Z79.01 Long term (current) use of anticoagulants; Z95.2 Presence of prosthetic heart valve; K21.9 Gastro-esophageal reflux disease without esophagitis; Z79.899 Other long term (current) drug therapy
CPT/HCPCS: 36415; 84132; 92960; 93005